=== PATIENT | male | born 1975 | race Caucasian/White ===

== ENCOUNTER → 2019-12-24 08:22 | Outpatient (BNVA) | payer MEDICARE, SELFPAY | PROVIDERS: Family Provider Family Medicine; PCP Family Medicine; Visit Provider Psychiatry & Neurology Neurology | DX: E11.65 Type 2 diabetes mellitus with hyperglycemia (principal) | CPT/HCPCS: 81000; 82044 ==

== ENCOUNTER → 2019-12-28 09:11 | Outpatient (BNVA) | payer MEDICARE, SELFPAY | PROVIDERS: Family Provider Family Medicine; PCP Family Medicine; Visit Provider Nurse Practitioner | DX: E11.65 Type 2 diabetes mellitus with hyperglycemia (principal); E78.2 Mixed hyperlipidemia; I10 Essential (primary) hypertension | CPT/HCPCS: 80053; 80061; 83036; 84443 ==

== ENCOUNTER → 2020-01-20 13:28 | Outpatient (BNVA) | payer MEDICARE, SELFPAY | PROVIDERS: Family Provider Family Medicine; PCP Family Medicine; Visit Provider Psychiatry & Neurology Psychiatry | DX: F20.9 Schizophrenia, unspecified (principal); F10.20 Alcohol dependence, uncomplicated; F17.200 Nicotine dependence, unspecified, uncomplicated | CPT/HCPCS: 99204 ==

== ENCOUNTER → 2020-02-03 08:26 | Outpatient (BNVA) | payer MEDICARE, SELFPAY | PROVIDERS: Family Provider Family Medicine; PCP Family Medicine; Visit Provider Psychiatry & Neurology Psychiatry | DX: F20.9 Schizophrenia, unspecified (principal); F10.20 Alcohol dependence, uncomplicated; F17.200 Nicotine dependence, unspecified, uncomplicated | CPT/HCPCS: 99213 ==

== ENCOUNTER → 2020-02-10 08:29 | Outpatient (BNVA) | payer MEDICARE, SELFPAY | PROVIDERS: Family Provider Family Medicine; PCP Family Medicine; Visit Provider Psychiatry & Neurology Psychiatry | DX: F20.9 Schizophrenia, unspecified (principal); F17.200 Nicotine dependence, unspecified, uncomplicated; F10.20 Alcohol dependence, uncomplicated | CPT/HCPCS: 99214 ==

== ENCOUNTER → 2020-03-01 13:34 | Outpatient (BNVA) | payer MEDICARE, MEDICAID, SELFPAY | PROVIDERS: Family Provider Family Medicine; PCP Nurse Practitioner; Visit Provider Nurse Practitioner | DX: Z11.59 Encounter for screening for other viral diseases (principal) | CPT/HCPCS: 86705; 86706; 86709; 86803; 87340 ==

== ENCOUNTER 2020-03-02 10:11 | Inpatient (IN) | payer MEDICARE, MEDICAID, SELFPAY ==
[2020-03-02] VITALS (8 sets, daily range): BP systolic 91–138; BP diastolic 62–79; PULSE 72–106; RESP 16–20; TEMP 36.6–37.3; O2SAT 96–97; BMI 33.5
--- NOTE | 2020-03-02 10:17 | ED_ITS ---
HPI - Psych General: Chief Complaint: Psychiatric Symptoms Stated Complaint: SUICIDAL IDEATION Time Seen by Provider: 03/02/20 10:12 History of Present Illness: HPI Narrative: 44-year-old male comes in complaining of suicidal ideation. He states he [place] to sit [place] the [place] tracks or walk into traffic. He has been admitted in the past for suicidal ideation. He denies having done anything specifically to harm himself as of yet. Review of Systems Const: Denies: fever(s), chills, body aches, change in appetite, fatigue or malaise ENMT: Denies: throat pain, ear or mastoid pain, nasal discharge or nasal congestion Card: Denies: chest pain, edema, dyspnea on exertion or orthopnea Resp: Denies: dyspnea, productive cough or non-productive cough GI: Denies: abdominal pain, nausea, vomiting, hematemesis, coffee ground emesis, diarrhea, constipation, bloating, hematochezia or melena : Denies: flank pain, dysuria, urinary frequency or urinary urgency PFSH ED PFSH: Medical History Acne rosacea Bipolar disorder Controlled diabetes mellitus with hyperglycemia Current smoker DM neuropathy, painful Essential (primary) hypertension History of alcohol abuse daily use of hard liquor History of coronary artery disease History of CVA (cerebrovascular accident) 2009 Right side weakness due to a bleed History of memory loss History of schizophrenia Mixed hyperlipidemia Psoriasis Seizure disorder Surgical History History of colonoscopy with polypectomy 2016 History of esophagogastroduodenoscopy (EGD) History of eye surgery History of heart artery stent Family History Other Dementia Diabetes Hypertension Lung disease Psychiatric illness Stroke Denies family history of Chronic kidney disease (CKD) Anesthesia complication Bleeding disorder Cancer Social History Smoking and tobacco status: current every day smoker cigarettes Packs smoked per day: 2.5 Years cigarettes smoked: 38 Second hand smoke exposure: Yes Smoking risk assessment/counseling performed?: Yes Alcohol intake: current Alcohol intake frequency: 0-2 Drinks per Day Alcohol type: hard liquor Desire information about alcohol rehabilitation?: No Counseling given: No Desire information about substance/drug rehabilitation?: No Counseling given: No Adopted: No Caregiver/support person: Yes Lives independently: No Household members: friend(s) and caregiver Housing: Manufactured/Mobile home Marital status: Number of children: 8 service: No Current occupational status: disabled Pets and animals: Yes History of recent travel: Yes Details: month an a half ago Out of state: Yes Current gender identity: Male Physical Exam Const: COMMON NORMALS: no acute distress GENERAL APPEARANCE: cooperative and comfortable HENMT: COMMON NORMALS: normocephalic, atraumatic and hearing grossly normal bilaterally HEAD & SCALP: normocephalic and atraumatic Eye: COMMON NORMALS: Equal, round and reactive pupils present, EOMs intact bilaterally, conjunctivae normal and no scleral icterus CONJUNCTIVA: Yes conjunctivae normal PUPIL: Yes Equal, round and reactive pupils present Neck/C-Spine: COMMON NORMALS: full ROM, no lymphadenopathy, supple and no JVD Lymph: LYMPHATIC: no lymphadenopathy noted and no lymphedema noted Resp: COMMON NORMALS: normal respiratory effort, No retractions, No use of accessory muscles and clear to auscultation bilaterally AUSCULTATION: clear to auscultation bilaterally Cardio: COMMON NORMALS: no JVD, regular rate, regular rhythm and No murmurs present (Cardio) RATE: regular rate RHYTHM: regular rhythm GI: COMMON NORMALS: Soft to palpation and No hepatosplenomegaly present AUSCULTATION: Yes normoactive bowel sounds PALPATION: Yes Soft to palpation, No Tenderness to palpation present (GI), No Guarding due to palpation present (GI) and Yes No hepatosplenomegaly present Extremity: COMMON NORMALS: normal to inspection, capillary refill normal, no clubbing, cyanosis or edema, no calf tenderness and no pedal edema MDM - Psych MDM Narrative: Medical decision making narrative: This is Dr. Torres will admit for suicidal ideation. Also let Dr. Torres know his blood sugars are elevated and will need monitoring Lab Data: Labs: Lab Results 03/02/20 03/02/20 03/02/20 Range/Units 10:30 10:30 10:32 WBC 10.5 H (4.0-10.0) 10^3/ uL RBC 5.17 (4.1-5.3) 10^6/u L Hgb 16.7 H (11.7-16.6) g/dL Hct 48.9 (42.0-52.0) % MCV 94.6 H (80-94) fL MCH 32.3 (28.0-34.0) pg MCHC 34.2 (30.0-36.0) g/dL RDW 12.5 (12.1-15.1) % Plt Count 220 (130-400) 10^3/c mm MPV 11.3 H (7.4-10.4) fL Neut % (Auto) 70.6 % Lymph % (Auto) 16.9 % [place] % (Auto) 5.3 % Eos % (Auto) 5.9 % Baso % (Auto) 0.9 % Neut # (Auto) 7.40 (1.8-7.7) 10^3/u L Lymph # (Auto) 1.8 (0.8-4.8) 10^3/u L [place] # (Auto) 0.6 (0.2-0.9) 10^3/u L Eos # (Auto) 0.6 (0.0-0.8) 10^3/u L Baso # (Auto) 0.1 (0.0-0.1) 10^3/u L Nucleated RBC % (a uto) 0 % Nucleated RBCs # 0.0 /100WBC Sodium 135 L (136-145) mmol/L Potassium 4.2 (3.5-5.1) mmol/L Chloride 104 (98-107) mmol/L Carbon Dioxide 19 L (22-29) mmol/L Anion Gap 16.2 (5-19) BUN 7 (6-20) mg/dL Creatinine 0.8 (0.7-1.2) mg/dL GFR Calculation 104.1 (90-130) mL/min Glucose 146 H (65-115) mg/dL Calculated Osmolal ity 281 L (285-295) mOsm/k g Calcium 10.1 (8.5-10.5) mg/dL Total Bilirubin 0.4 (0.15-1.2) mg/dL AST 46 H (0-40) U/L ALT 48 H (0-41) U/L Alkaline Phosphata se 67 (40-130) IU/L Total Protein 7.4 (6.6-8.7) g/dL Albumin 4.5 (3.5-5.2) g/dL Globulin 2.9 (1.3-4.6) g/dL Urine Color Yellow (Yellow) Urine Appearance Clear (CLEAR) Urine pH 7.0 (5-7) Ur Specific Gravit y 1.005 (1.005-1.030) Urine Protein Neg (Negative) Urine Glucose (UA) Norm (Normal) Urine Ketones Negative (Negative) Urine Blood Neg (Negative) Urine Nitrate Negative (Negative) Urine Bilirubin Neg (Negative) Urine Urobilinogen Norm (Negative) mg/dL Ur Leukocyte Niru ase Negative (Negative) Salicylates < 0.3 L (3-10) mg/dL Urine Opiates Scre en (Negative) ng/mL Acetaminophen < 5.0 L (10-30) ug/mL Ur Barbiturates Sc reen (Negative) ng/mL Ur Phencyclidine S crn (Negative) ng/mL Ur Amphetamines Sc reen (Negative) ng/mL U Benzodiazepines Scrn (Negative) ng/mL Urine Cocaine Scre en (Negative) ng/mL U Marijuana (THC) Screen (Negative) ng/mL Ethyl Alcohol < 10 (0-10) mg/dL SARS-CoV-2 Ag (Rap id) (Negative) 03/02/20 03/02/20 Range/Units 10:32 10:37 WBC (4.0-10.0) 10^3/ uL RBC (4.1-5.3) 10^6/u L Hgb (11.7-16.6) g/dL Hct (42.0-52.0) % MCV (80-94) fL MCH (28.0-34.0) pg MCHC (30.0-36.0) g/dL RDW (12.1-15.1) % Plt Count (130-400) 10^3/c mm MPV (7.4-10.4) fL Neut % (Auto) % Lymph % (Auto) % [place] % (Auto) % Eos % (Auto) % Baso % (Auto) % Neut # (Auto) (1.8-7.7) 10^3/u L Lymph # (Auto) (0.8-4.8) 10^3/u L [place] # (Auto) (0.2-0.9) 10^3/u L Eos # (Auto) (0.0-0.8) 10^3/u L Baso # (Auto) (0.0-0.1) 10^3/u L Nucleated RBC % (a uto) % Nucleated RBCs # /100WBC Sodium (136-145) mmol/L Potassium (3.5-5.1) mmol/L Chloride (98-107) mmol/L Carbon Dioxide (22-29) mmol/L Anion Gap (5-19) BUN (6-20) mg/dL Creatinine (0.7-1.2) mg/dL GFR Calculation (90-130) mL/min Glucose (65-115) mg/dL Calculated Osmolal ity (285-295) mOsm/k g Calcium (8.5-10.5) mg/dL Total Bilirubin (0.15-1.2) mg/dL AST (0-40) U/L ALT (0-41) U/L Alkaline Phosphata se (40-130) IU/L Total Protein (6.6-8.7) g/dL Albumin (3.5-5.2) g/dL Globulin (1.3-4.6) g/dL Urine Color (Yellow) Urine Appearance (CLEAR) Urine pH (5-7) Ur Specific Gravit y (1.005-1.030) Urine Protein (Negative) Urine Glucose (UA) (Normal) Urine Ketones (Negative) Urine Blood (Negative) Urine Nitrate (Negative) Urine Bilirubin (Negative) Urine Urobilinogen (Negative) mg/dL Ur Leukocyte Niru ase (Negative) Salicylates (3-10) mg/dL Urine Opiates Scre en Negative (Negative) ng/mL Acetaminophen (10-30) ug/mL Ur Barbiturates Sc reen Negative (Negative) ng/mL Ur Phencyclidine S crn Negative (Negative) ng/mL Ur Amphetamines Sc reen Negative (Negative) ng/mL U Benzodiazepines Scrn Negative (Negative) ng/mL Urine Cocaine Scre en Negative (Negative) ng/mL U Marijuana (THC) Screen Negative (Negative) ng/mL Ethyl Alcohol (0-10) mg/dL SARS-CoV-2 Ag (Rap id) Negative (Negative) Discharge Plan Discharge Patient Disposition: Home Clinical Impression: Suicidal ideation, Controlled diabetes mellitus with hyperglycemia Condition: Stable Discharge Date/Time: 03/02/20 13:18 Coding Level of Care Code ED [employer] for [employer]
--- NOTE | 2020-03-02 10:27 | XR_ITS ---
WS: [id number] CHEST XRAY TECHNIQUE: Portable chest. CLINICAL INFORMATION: dyspnea/cough COMPARISON: FINDINGS: Heart: Stable cardiomegaly. Lungs: Moderate chronic emphysematous changes. No acute parenchymal infiltrates. No focal pneumonia. No pleural fluid. Bones: Normal visualized bony structures. XR/XR chest 1V portable [id number] IMPRESSION: No acute chest findings
[2020-03-02 10:37] LABS: Basophils # 0.1 10^3/uL (0.0-0.1); Basophils % 0.9 %; Eosinophils # 0.6 10^3/uL (0.0-0.8); Eosinophils % 5.9 %; Hematocrit 48.9 % (42.0-52.0); Hemoglobin 16.7 g/dL (11.7-16.6); Lymphocytes # 1.8 10^3/uL (0.8-4.8); Lymphocytes % 16.9 %; Mean Corpuscular HGB Conc 34.2 g/dL (30.0-36.0); Mean Corpuscular Hemoglobin 32.3 pg (28.0-34.0); Mean Corpuscular Volume 94.6 fL (80-94); Mean Platelet Volume 11.3 fL (7.4-10.4); Monocytes # 0.6 10^3/uL (0.2-0.9); Monocytes % 5.3 %; Neutrophils % 70.6 %; Nucleated Red Blood Cells % 0 %; Platelet Count 220 10^3/cmm (130-400); Red Blood Count 5.17 10^6/uL (4.1-5.3); Red Cell Distribution Width 12.5 % (12.1-15.1); White Blood Count 10.5 10^3/uL (4.0-10.0)
[2020-03-02 10:46] LABS: Add Urine Microscopic? NO
[2020-03-02 10:50] LABS: Bilirubin Urine Neg (Negative); Blood Urine Neg (Negative); Glucose Urine UA Norm (Normal); Ketones Urine Negative (Negative); Leukocyte Esterase Urine Negative (Negative); Nitrate Urine Negative (Negative); Protein Urine Neg (Negative); Specific Gravity, Urine 1.005 (1.005-1.030); Urine Appearance Clear (CLEAR); Urine Color Yellow (Yellow); Urobilinogen Urine Norm (Negative)
[2020-03-02 10:57] LABS: Alanine Aminotransferase 48 U/L (0-41); Albumin Level 4.5 g/dL (3.5-5.2); Alkaline Phosphatase 67 IU/L (40-130); Anion Gap 16.2 (5-19); Aspartate Amino Transferase 46 U/L (0-40); Blood Urea Nitrogen 7 mg/dL (6-20); Calcium 10.1 mg/dL (8.5-10.5); Carbon Dioxide 19 mmol/L (22-29); Chloride 104 mmol/L (98-107); Globulin 2.9 g/dL (1.3-4.6); Glomerular Filtration Rate 104.1 mL/min (90-130); Glucose 146 mg/dL (65-115); Osmolality Calculated 281 mOsm/kg (285-295); Potassium 4.2 mmol/L (3.5-5.1); Sodium 135 mmol/L (136-145); Total Bilirubin 0.4 mg/dL (0.15-1.2); Total Protein 7.4 g/dL (6.6-8.7)
[2020-03-02 10:58] LABS: Amphetamines Screen Urine Negative (Negative); Barbiturates Screen Urine Negative (Negative); Benzodiazepines Screen Urine Negative (Negative); Cocaine Screen Urine Negative (Negative); Opiate Screen Urine Negative (Negative); PCP Screen Urine Negative (Negative); THC Screen Urine Negative (Negative)
[2020-03-02 10:58] LABS: Acetaminophen < 5.0 ug/mL (10-30); Alcohol Level < 10 mg/dL (0-10); Salicylate < 0.3 mg/dL (3-10)
[2020-03-02 11:06] LABS: SARS Covid-2 Antigen Negative (Negative)
[2020-03-02] MEDS: LORazepam 1 mg Tablet PO (11:17)
--- NOTE | 2020-03-02 11:25 | PC.NURSE ---
Sitter outside room.
[2020-03-02] MEDS: trazodone 50 mg Tablet PO (21:42)
[2020-03-02] MEDS: hyDROXYzine 25 mg Capsule 50 MG PO (21:42)
[2020-03-03 06:00] VITALS: BP 97/57; PULSE 73; RESP 16; TEMP 36.8; O2SAT 96
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
[2020-03-03] MEDS: lisinopril 20 mg Tablet 40 MG PO (09:45)
[2020-03-03] MEDS: carvedilol 6.25 mg Tablet PO (09:45)
[2020-03-03] MEDS: metformin XR 500 MG Tablet PO ×2 (09:45→16:59)
[2020-03-03] MEDS: OLANZapine 10 mg TABLET PO ×2 (09:45→16:59)
[2020-03-03] MEDS: levETIRAcetam 500 mg Tablet 1000 MG PO ×2 (09:45→16:59)
[2020-03-03] MEDS: paliperidone 3 MG, paliperidone 6 MG 9 MG PO (09:45)
[2020-03-03] MEDS: topiramate 25 mg Tablet 50 MG PO ×2 (09:45→16:59)
[2020-03-03] MEDS: lithium carbonate 300 mg Capsule PO ×2 (13:46→16:59)
[2020-03-03 14:00] VITALS: BP 121/71; PULSE 80; RESP 18; TEMP 37.1; O2SAT 95
[2020-03-03 21:12] VITALS: BP 109/65; PULSE 60; RESP 17; TEMP 36.6; O2SAT 95
[2020-03-04 06:00] VITALS: BP 124/84; PULSE 87; RESP 16; TEMP 36.2; O2SAT 97
[2020-03-04] MEDS: levETIRAcetam 500 mg Tablet 1000 MG PO ×2 (08:25→17:09)
[2020-03-04] MEDS: lithium carbonate 300 mg Capsule PO ×3 (08:26→20:29)
[2020-03-04] MEDS: carvedilol 6.25 mg Tablet PO (08:26)
[2020-03-04] MEDS: OLANZapine 10 mg TABLET PO ×2 (08:26→17:09)
[2020-03-04] MEDS: topiramate 25 mg Tablet 50 MG PO ×2 (08:26→17:09)
[2020-03-04] MEDS: metformin XR 500 MG Tablet PO ×2 (08:26→17:08)
[2020-03-04] MEDS: lisinopril 20 mg Tablet 40 MG PO (08:26)
[2020-03-04] MEDS: paliperidone 3 MG, paliperidone 6 MG 9 MG PO (08:26)
[2020-03-04] MEDS: nicotine 21 mg Patch 1 PATCH TRANSDERMA (08:29)
--- NOTE | 2020-03-04 08:44 | PC.NURSE ---
refused scheduled Triamcinlone & Metrocream
--- NOTE | 2020-03-04 09:04 | PC.RESP ---
Smoking Cessation information sent to patient.
--- NOTE | 2020-03-04 10:53 | PC.SOCIAL ---
Important Medicare Message Reviewed page 1 & 2 of Important Medicare Message with patient. Verbalized understanding and signed page 2. Original to patient and copy in chart.
--- NOTE | 2020-03-04 13:11 | PM.NPN ---
Subjective NPU Subjective: Interval history: Reinaldo presents today reporting that he still is feeling quite irritable. We discussed the side effects or issues he is having with the lithium and he denied any problems. Noting that he was taking anything at this point. So we discussed the risks, benefits and alternatives of increasing the lithium to 300 mg by mouth 3 times a day and he understood and agreed to proceed as is documented in his note. He reports that he is eating okay still having some sleeping difficulties and feeling anger a lot. Mental Status Exam MSE Comments: This is an obese white male with adequate dress, grooming and eye contact. No abnormal movements. Except for psychomotor retardation. Cooperative with exam in mild distress. Speech was decreased rate and volume. Mood described as depressed, affect congruent and irritable. Thought process organized. Thought content: Patient endorsed suicidal and homicidal ideations, he endorsed paranoid delusions but none were noted. He endorses auditory hallucinations but denied visual hallucinations. Attention and concentration appear intact in memory appears reliable but none were formally tested. He is alert and oriented x3. Insight and judgment appear fair. Vitals/I&O/Wt Last Vital Signs Temp 97.2 F L 03/04/20 06:00 Pulse 87 03/04/20 06:00 Resp 16 03/04/20 06:00 BP 124/84 03/04/20 06:00 Pulse Ox 97 03/04/20 06:00 Data NPU : 03/02/20 10:30 03/02/20 10:30 A&P Additional A&P Information (1) Suicidal ideation: (2) Nicotine dependence, unspecified, uncomplicated: (3) Alcohol use disorder, severe, dependence: (4) Schizophrenia: (5) Seizure disorder: (6) Controlled diabetes mellitus with hyperglycemia: (7) Essential (primary) hypertension: (8) Cerebrovascular accident (CVA): This is a 44-year-old white male with a long history of psychosis and suicidality who presents poorly 3 weeks back onto his antipsychotic but still having significant mood swings and anxiety. 1. Continue current medication. Except: Initiate lithium 300 mg p.o. 3 times a day. 2. Continue every 15 minute checks for safety. 3. Encourage individual group and milieu therapy. 4. Encourage sober living treatment at the highest level of care to which he is willing to commit. Involuntary Hold Information 96 Hour Hold: 96 Hour Involuntary Admission: No Attestations NPU Medical Necessity Statement*: Inpatient hospitalization is medically necessary and the clinically appropriate intervention at this time. We will monitor medications and add and make changes as indicated. Likely length of stay 3-5 days. Coding Level of Care Code Acute Senior Sales Consultant for Carlos Armstrong
[2020-03-04 14:00] VITALS: BP 121/80; PULSE 80; RESP 18; TEMP 37.1; O2SAT 95
[2020-03-04] MEDS: hyDROXYzine 25 mg Capsule 50 MG PO (20:23)
[2020-03-04] MEDS: trazodone 50 mg Tablet PO (20:26)
[2020-03-04] MEDS: atorvastatin 40 mg Tablet 20 MG PO (20:30)
[2020-03-04] MEDS: triamcinolone 0.1% cream 15 gm 1 APPLIC TOPICAL (20:31)
[2020-03-04 22:00] VITALS: BP 100/65; PULSE 78; RESP 16; TEMP 36.5; O2SAT 96
[2020-03-05 06:00] VITALS: BP 118/84; PULSE 71; RESP 18; TEMP 36.8; O2SAT 98
[2020-03-05] MEDS: OLANZapine 10 mg TABLET PO ×2 (08:42→17:00)
[2020-03-05] MEDS: lisinopril 20 mg Tablet 40 MG PO (08:43)
[2020-03-05] MEDS: topiramate 25 mg Tablet 50 MG PO ×2 (08:43→17:01)
[2020-03-05] MEDS: paliperidone 3 MG, paliperidone 6 MG 9 MG PO (08:43)
[2020-03-05] MEDS: lithium carbonate 300 mg Capsule PO ×3 (08:43→20:53)
[2020-03-05] MEDS: metformin XR 500 MG Tablet PO ×2 (08:43→17:00)
[2020-03-05] MEDS: carvedilol 6.25 mg Tablet PO (08:44)
[2020-03-05] MEDS: levETIRAcetam 500 mg Tablet 1000 MG PO ×2 (08:44→17:00)
[2020-03-05] MEDS: paliperidone palmitate 234 mg Syringe IM (13:19)
[2020-03-05 14:00] VITALS: BP 112/79; PULSE 87; RESP 18; TEMP 36.8
--- NOTE | 2020-03-05 14:10 | P.PN_ITS ---
Subjective NPU Subjective: Interval history: Bilateral presents today reporting that he is feeling a little anxious but we discussed the fact that he was getting his injection today, and he reported that that very well could be it later on we spoke he said that he did feel little better after injection. He reports that he is doing well with the lithium and he denied any specific side effects or concerns. We discussed the need for a lithium level sometime in the next week. We discussed the risks benefits and alternatives of discharge in the next 48 hours and he understood and agreed to proceed as documented in this note. He reports eating and sleeping better. Medications: Reviewed: Yes Mental Status Exam MSE Comments: This is an obese white male with adequate dress, grooming and eye contact. No abnormal movements. Except for mild psychomotor retardation. Cooperative with exam in no acute distress. Speech was decreased rate and volume. Mood described as depression getting better but feeling a little anxious, affect congruent. Thought process organized. Thought content: Patient denied suicidal and homicidal ideations, he reported his paranoid delusions were diminishing but none were noted. He endorses improvement in his auditory hallucinations but denied visual hallucinations. Attention and concentration appear intact in memory appears reliable but none were formally tested. He is alert and oriented x3. Insight and judgment appear fair, and improving. Vitals/I&O/Wt Last Vital Signs Temp 96.9 F L 03/05/20 21:42 Pulse 89 03/05/20 21:42 Resp 17 03/05/20 21:42 BP 128/84 03/05/20 21:42 Pulse Ox 97 03/05/20 21:42 Weight last 48 hrs Weight 99.79 kg Data NPU : 03/02/20 10:30 03/02/20 10:30 A&P Additional A&P Information (1) Suicidal ideation: (2) Nicotine dependence, unspecified, uncomplicated: (3) Alcohol use disorder, severe, dependence: (4) Schizophrenia: (5) Seizure disorder: (6) Controlled diabetes mellitus with hyperglycemia: (7) Essential (primary) hypertension: (8) Cerebrovascular accident (CVA): This is a 44-year-old white male with a long history of psychosis and suicidality who presents poorly 3 weeks back onto his antipsychotic but still having significant mood swings and anxiety. 1. Continue current medication. 2. Continue every 15 minute checks for safety. 3. Encourage individual group and milieu therapy. 4. Encourage sober living treatment at the highest level of care to which he is willing to commit. Involuntary Hold Information 96 Hour Hold: 96 Hour Involuntary Admission: No Attestations NPU Medical Necessity Statement*: Inpatient hospitalization is medically necessary and the clinically appropriate intervention at this time. We will monitor medications and add and make changes as indicated. Likely length of stay 1-3 days. Coding Level of Care Code Acute Membership Sales Representative for Carlos Armstrong
[2020-03-05] MEDS: atorvastatin 40 mg Tablet 20 MG PO (20:51)
[2020-03-05] MEDS: hyDROXYzine 25 mg Capsule 50 MG PO (20:51)
[2020-03-05 21:42] VITALS: BP 128/84; PULSE 89; RESP 17; TEMP 36.1; O2SAT 97
[2020-03-06 06:00] VITALS: BP 111/76; PULSE 81; RESP 17; TEMP 36.4; O2SAT 97
[2020-03-06] MEDS: nicotine 21 mg Patch 1 PATCH TRANSDERMA (08:06)
[2020-03-06] MEDS: OLANZapine 10 mg TABLET PO (08:07)
[2020-03-06] MEDS: lisinopril 20 mg Tablet 40 MG PO (08:07)
[2020-03-06] MEDS: levETIRAcetam 500 mg Tablet 1000 MG PO (08:07)
[2020-03-06] MEDS: paliperidone 3 MG, paliperidone 6 MG 9 MG PO (08:08)
[2020-03-06] MEDS: metformin XR 500 MG Tablet PO (08:08)
[2020-03-06] MEDS: topiramate 25 mg Tablet 50 MG PO (08:08)
[2020-03-06] MEDS: lithium carbonate 300 mg Capsule PO (08:08)
[2020-03-06] MEDS: carvedilol 6.25 mg Tablet PO (08:08)
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
[2020-03-06 09:38] VITALS: BP 111/76; PULSE 81; RESP 17; TEMP 36.4; O2SAT 97
== END 2020-03-06 11:10 | disposition home or self-care (01) | DRG 885 ==
LOC: ER 11:46 → NP 11:47
PROVIDERS: Family Medicine; Admitting Provider Psychiatry & Neurology Psychiatry; PCP Nurse Practitioner; Visit Provider Psychiatry & Neurology Psychiatry
DX: F20.9 Schizophrenia, unspecified (principal); R45.851 Suicidal ideations; F17.210 Nicotine dependence, cigarettes, uncomplicated; I10 Essential (primary) hypertension; E11.65 Type 2 diabetes mellitus with hyperglycemia; G40.909 Epilepsy, unspecified, not intractable, without status epilepticus; F10.229 Alcohol dependence with intoxication, unspecified; E78.2 Mixed hyperlipidemia; Z86.73 Personal history of transient ischemic attack (TIA), and cerebral infarction without residual deficits; E11.40 Type 2 diabetes mellitus with diabetic neuropathy, unspecified; I25.10 Atherosclerotic heart disease of native coronary artery without angina pectoris
CPT/HCPCS: 12345; 36415; 71045; 80053; 80306; 80307; 81003; 85025; 86705; 86706; 86709; 86803; 87340; 87426; 96372; 99284

== ENCOUNTER → 2020-03-10 07:46 | Outpatient (BNVA) | payer MEDICARE, SELFPAY | PROVIDERS: Family Provider Family Medicine; PCP Family Medicine; Visit Provider Psychiatry & Neurology Psychiatry | DX: F20.9 Schizophrenia, unspecified (principal); F10.20 Alcohol dependence, uncomplicated; F17.200 Nicotine dependence, unspecified, uncomplicated | CPT/HCPCS: 99214 ==

== ENCOUNTER → 2020-03-22 07:42 | Outpatient (BNVA) | payer MEDICARE, SELFPAY | PROVIDERS: Family Provider Family Medicine; PCP Family Medicine; Visit Provider Psychiatry & Neurology Psychiatry | DX: F17.200 Nicotine dependence, unspecified, uncomplicated (principal); F10.20 Alcohol dependence, uncomplicated; F20.9 Schizophrenia, unspecified | CPT/HCPCS: 99213 ==

== ENCOUNTER → 2020-03-30 08:12 | Outpatient (BNVA) | payer MEDICARE, SELFPAY | PROVIDERS: PCP Nurse Practitioner; Visit Provider Nurse Practitioner Family | DX: F20.9 Schizophrenia, unspecified (principal); F10.20 Alcohol dependence, uncomplicated; G40.909 Epilepsy, unspecified, not intractable, without status epilepticus; Z71.89 Other specified counseling; E11.65 Type 2 diabetes mellitus with hyperglycemia | CPT/HCPCS: 80053; 80178; 84443; 85025 ==

== ENCOUNTER 2020-04-04 11:56 | Inpatient (IN) | payer MEDICARE, MEDICAID, SELFPAY ==
[2020-04-04] VITALS (7 sets, daily range): BP systolic 115–137; BP diastolic 77–100; PULSE 71–139; RESP 17–22; TEMP 36.8–37.5; O2SAT 92–95; BMI 33.5
--- NOTE | 2020-04-04 12:09 | ED_ITS ---
HPI - Psych General: Chief Complaint: Psychiatric Symptoms Stated Complaint: SI Time Seen by Provider: 04/04/20 11:58 Source: patient and EMS Mode of arrival: EMS Limitations: no limitations History of Present Illness: HPI Narrative: Reinaldo is a 44-year-old male history of schizophrenia who please recall as he is having suicidal ideations. He told the police that he want to kill himself and had a plan of jumping out into traffic. He also told EMS he wanted to jump out of the back of the ambulance. Patient is quite anxious here and is pacing in the room. He denies any active suicidality at this time. MD complaint: suicidal ideation Associated symptoms: Reports depression and suicidal ideation Review of Systems Const: Denies: fever(s), chills, body aches or change in appetite Eyes: Denies: blurry vision or eye discomfort ENMT: Denies: throat pain or dental pain Card: Denies: chest pain Resp: Denies: dyspnea GI: Denies: abdominal pain, nausea, vomiting or diarrhea : Denies: dysuria Musc: Denies: neck pain or back pain Skin/Breast: Denies: rash Neuro: Denies: headache(s) Psych: Reports: anxiety, depression and suicidal ideation Len/Lymph: Denies: easy bruising All/Imm: Denies: urticaria PFSH ED PFSH: Medical History Acne rosacea Bipolar disorder Controlled diabetes mellitus with hyperglycemia Current smoker DM neuropathy, painful Essential (primary) hypertension History of alcohol abuse daily use of hard liquor History of coronary artery disease History of CVA (cerebrovascular accident) 2010 Right side weakness due to a bleed History of memory loss History of schizophrenia Mixed hyperlipidemia Psoriasis Seizure disorder Surgical History History of colonoscopy with polypectomy 2016 History of esophagogastroduodenoscopy (EGD) History of eye surgery History of heart artery stent Family History Other Dementia Diabetes Hypertension Lung disease Psychiatric illness Stroke Denies family history of Chronic kidney disease (CKD) Anesthesia complication Bleeding disorder Cancer Social History Smoking and tobacco status: current every day smoker cigarettes Packs smoked per day: 2.5 Years cigarettes smoked: 38 Second hand smoke exposure: Yes Smoking risk assessment/counseling performed?: Yes Alcohol intake: current Alcohol intake frequency: 0-2 Drinks per Day Alcohol type: hard liquor Desire information about alcohol rehabilitation?: No Counseling given: No Desire information about substance/drug rehabilitation?: No Counseling given: No Adopted: No Caregiver/support person: Yes Lives independently: No Household members: friend(s) and caregiver Housing: Manufactured/Mobile home Marital status: Number of children: 8 service: No Current occupational status: disabled Pets and animals: Yes History of recent travel: Yes Details: month an a half ago Out of state: Yes Current gender identity: Male Physical Exam Const: COMMON NORMALS: no acute distress, patient oriented x3 and healthy appearing HENMT: COMMON NORMALS: normocephalic and atraumatic HEAD & SCALP: normocephalic and atraumatic Eye: COMMON NORMALS: Equal, round and reactive pupils present and EOMs intact bilaterally PUPIL: Yes Equal, round and reactive pupils present Neck/C-Spine: COMMON NORMALS: full ROM and supple Chest: COMMONS NORMALS: normal inspection of the chest and normal palpation of entire chest wall Resp: COMMON NORMALS: normal respiratory effort, No retractions, No use of accessory muscles and clear to auscultation bilaterally AUSCULTATION: clear to auscultation bilaterally Cardio: COMMON NORMALS: regular rate, regular rhythm and No murmurs present (Cardio) RATE: regular rate RHYTHM: regular rhythm GI: COMMON NORMALS: Normal to inspection, nondistended, normoactive bowel sounds present, Soft to palpation, non-tender and no masses PALPATION: Yes Soft to palpation Extremity: COMMON NORMALS: normal to inspection and full ROM Neuro: COMMON NORMALS: patient oriented x3, moves all extremities and no focal motor deficits Psych: COMMON NORMALS: mental status grossly normal and cooperative MOOD & AFFECT: Yes depressed mood and Yes anxious THOUGHT CONTENT: Yes Suicidality present Skin: COMMON NORMALS: no rashes or lesions noted and no wounds GENERAL SKIN EXAM: no rashes or lesions noted MDM - Psych MDM Narrative: Medical decision making narrative: Patient presents for suicidal ideations. Patient's been medically cleared and placed under 96-hour hold. Patient admitted to psychiatric unit. Lab Data: Labs: Lab Results 04/04/20 04/04/20 04/04/20 Range/Units 12:20 13:30 13:30 WBC 7.5 (4.0-10.0) 10^3/ uL RBC 4.28 (4.1-5.3) 10^6/u L Hgb 14.1 (11.7-16.6) g/dL Hct 41.5 L (42.0-52.0) % MCV 97.0 H (80-94) fL MCH 32.9 (28.0-34.0) pg MCHC 34.0 (30.0-36.0) g/dL RDW 14.2 (12.1-15.1) % Plt Count 189 (130-400) 10^3/c mm MPV 10.4 (7.4-10.4) fL Neut % (Auto) 62.0 % Lymph % (Auto) 27.9 % Noble % (Auto) 5.5 % Eos % (Auto) 3.5 % Baso % (Auto) 0.8 % Neut # (Auto) 4.64 (1.8-7.7) 10^3/u L Lymph # (Auto) 2.1 (0.8-4.8) 10^3/u L Noble # (Auto) 0.4 (0.2-0.9) 10^3/u L Eos # (Auto) 0.3 (0.0-0.8) 10^3/u L Baso # (Auto) 0.1 (0.0-0.1) 10^3/u L Nucleated RBC % (a uto) 0 % Nucleated RBCs # 0.0 /100WBC Sodium 139 (136-145) mmol/L Potassium 3.7 (3.5-5.1) mmol/L Chloride 102 (98-107) mmol/L Carbon Dioxide 23 (22-29) mmol/L Anion Gap 17.7 (5-19) BUN 5 L (6-20) mg/dL Creatinine 0.7 (0.7-1.2) mg/dL GFR Calculation 121.4 (90-130) mL/min Glucose 117 H (65-115) mg/dL Calculated Osmolal ity 286 (285-295) mOsm/k g Calcium 9.2 (8.5-10.5) mg/dL Total Bilirubin 0.2 (0.15-1.2) mg/dL AST 31 (0-40) U/L ALT 45 H (0-41) U/L Alkaline Phosphata se 58 (40-130) IU/L Total Protein 6.4 L (6.6-8.7) g/dL Albumin 4.3 (3.5-5.2) g/dL Globulin 2.1 (1.3-4.6) g/dL Salicylates < 0.3 L (3-10) mg/dL Urine Opiates Scre en Negative (Negative) ng/mL Acetaminophen < 5.0 L (10-30) ug/mL Ur Barbiturates Sc reen Negative (Negative) ng/mL Ur Phencyclidine S crn Negative (Negative) ng/mL Ur Amphetamines Sc reen Negative (Negative) ng/mL U Benzodiazepines Scrn Negative (Negative) ng/mL Urine Cocaine Scre en Negative (Negative) ng/mL U Marijuana (THC) Screen Negative (Negative) ng/mL Ethyl Alcohol 98 H (0-10) mg/dL Discharge Plan Discharge Patient Disposition: Admitted As Inpatient Clinical Impression: Suicidal ideation Condition: Stable Referrals: Joel Rivas, CLERK TELEGRAPH SERVICE-C [Primary Care Provider] - Coding Level of Care Code ED Vocational Teacher for Carlos Fwd Exam Comprehensive
--- NOTE | 2020-04-04 12:16 | PC.NURSE ---
Pt belongings taken and placed in filing cabinet, sitter at bedside. Pt provided with coffee and sandwich.
[2020-04-04] MEDS: levETIRAcetam 500 mg Tablet 1000 MG PO (12:46)
[2020-04-04] MEDS: LORazepam 2 mg Tablet PO ×2 (12:46→17:16)
[2020-04-04 12:53] LABS: Amphetamines Screen Urine Negative (Negative); Barbiturates Screen Urine Negative (Negative); Benzodiazepines Screen Urine Negative (Negative); Cocaine Screen Urine Negative (Negative); Opiate Screen Urine Negative (Negative); PCP Screen Urine Negative (Negative); THC Screen Urine Negative (Negative)
[2020-04-04 13:45] LABS: Basophils # 0.1 10^3/uL (0.0-0.1); Basophils % 0.8 %; Eosinophils # 0.3 10^3/uL (0.0-0.8); Eosinophils % 3.5 %; Hematocrit 41.5 % (42.0-52.0); Hemoglobin 14.1 g/dL (11.7-16.6); Lymphocytes # 2.1 10^3/uL (0.8-4.8); Lymphocytes % 27.9 %; Mean Corpuscular Hemoglobin 32.9 pg (28.0-34.0); Mean Platelet Volume 10.4 fL (7.4-10.4); Monocytes # 0.4 10^3/uL (0.2-0.9); Monocytes % 5.5 %; Neutrophils # 4.64 10^3/uL (1.8-7.7); Nucleated Red Blood Cells % 0 %; Platelet Count 189 10^3/cmm (130-400); Red Blood Count 4.28 10^6/uL (4.1-5.3); Red Cell Distribution Width 14.2 % (12.1-15.1); White Blood Count 7.5 10^3/uL (4.0-10.0)
[2020-04-04 14:04] LABS: Alanine Aminotransferase 45 U/L (0-41); Albumin Level 4.3 g/dL (3.5-5.2); Alcohol Level 98 mg/dL (0-10); Alkaline Phosphatase 58 IU/L (40-130); Anion Gap 17.7 (5-19); Aspartate Amino Transferase 31 U/L (0-40); Blood Urea Nitrogen 5 mg/dL (6-20); Calcium 9.2 mg/dL (8.5-10.5); Carbon Dioxide 23 mmol/L (22-29); Chloride 102 mmol/L (98-107); Creatinine Clr Calc Pharmacy 151.3281; Globulin 2.1 g/dL (1.3-4.6); Glomerular Filtration Rate 121.4 mL/min (90-130); Glucose 117 mg/dL (65-115); Osmolality Calculated 286 mOsm/kg (285-295); Potassium 3.7 mmol/L (3.5-5.1); Sodium 139 mmol/L (136-145); Total Bilirubin 0.2 mg/dL (0.15-1.2); Total Protein 6.4 g/dL (6.6-8.7)
[2020-04-04 14:09] LABS: Acetaminophen < 5.0 ug/mL (10-30); Salicylate < 0.3 mg/dL (3-10)
[2020-04-04] MEDS: LORazepam 2 mg/mL INJ 1 mL IM (14:34)
--- NOTE | 2020-04-04 15:53 | PC.NURSE ---
Called [facility] again regarding room. Per NATHALY Fountain, room still is not clean, housekeeping being called again.
--- NOTE | 2020-04-04 16:12 | PC.NURSE ---
sitter in room with patient no needs voiced
[2020-04-04] MEDS: trazodone 50 mg Tablet PO (20:54)
[2020-04-04] MEDS: hyDROXYzine 25 mg Capsule 50 MG PO (20:54)
[2020-04-05 06:00] VITALS: BP 119/80; PULSE 87; RESP 15; TEMP 36.4; O2SAT 98
[2020-04-05] MEDS: multivitamin therapeutic Tablet 1 TAB PO (07:58)
[2020-04-05] MEDS: thiamine 100 mg Tablet PO (07:58)
[2020-04-05] MEDS: folic acid 1 mg Tablet PO (07:58)
[2020-04-05 14:00] VITALS: BP 138/95; PULSE 94; RESP 20; TEMP 36.4; O2SAT 95
[2020-04-05] MEDS: paliperidone 3 MG, paliperidone 6 MG 9 MG PO (14:12)
[2020-04-05] MEDS: LORazepam 1 mg Tablet PO ×2 (14:12→20:35)
[2020-04-05] MEDS: citalopram 20 mg Tablet PO (14:12)
--- NOTE | 2020-04-05 14:35 | PM.NHP ---
Providers/Chief Complaint Admitting Physician: Chidi Arriaga MD Primary Care Provider: Joel Rivas, NAIMA-C Chief Complaint: SI HPI NPU History of Present Illness Reinaldo Flores is a 44-year-old male with an extensive history of admissions and outpatient treatment at the [facility]. Historically he has struggled with depression and auditory hallucinations. He has a diagnosis of schizophrenia based primarily on the presence of auditory hallucinations alone. He says that Invega is the only medication that has been helpful with the hallucinations. He was seen by his outpatient psychiatrist 2 weeks ago. It was an unremarkable visit except for the fact that the patient is drinking a half a gallon of hard liquor per day. Unfortunately, that is a pattern of behavior to such a degree that it is not given as cause for alarm when reported. He continues to labor under significant symptoms of depression with multiple extenuating circumstances. He continues to have complicated morning over the loss of his marriage 11 years ago and the removal of contact from his children. He has no regular contact with them. He has lost his employment. His alcohol use likely also feels depressive symptoms. These include anhedonia, feelings of hopelessness and worthlessness, low self-esteem, irritability, poor concentration, poor energy and insomnia. He states that he received his scheduled injection of Invega 234 mg. Then he immediately became despondent to the point of imminently suicidal. He has been this way before. He does not feel that it was the injection that caused the suicidality but rather his drinking. He expects that this will be resolved once he is through the period of withdrawal for his alcohol. We discussed his alcohol intake. He has been through rehab 1 time last year. This was somewhere in [place]. He immediately began drinking after the rehab and says that it provided no significant benefit. However this was his only experience at rehab. He has a history of a withdrawal symptoms but no DTs. He has no history of seizures. Laboratory Tests 04/04/20 04/04/20 12:20 13:30 Urine Opiates Screen Negative Ur Barbiturates Screen Negative Ur Phencyclidine Scrn Negative Ur Amphetamines Screen Negative U Benzodiazepines Scrn Negative Urine Cocaine Screen Negative U Marijuana (THC) Screen Negative Ethyl Alcohol 98 H ER Physician note: HPI Narrative: Reinaldo is a 44-year-old male history of schizophrenia who please recall as he is having suicidal ideations. He told the police that he want to kill himself and had a plan of jumping out into traffic. He also told EMS he wanted to jump out of the back of the ambulance. Patient is quite anxious here and is pacing in the room. He denies any active suicidality at this time. Past psychiatric history: This is the 12th psychiatric hospitalization at [facility] over the past 7 years. 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 He subsequently had a stroke followed by auditory hallucinations and has been hospitalized here in a psychotic episode just a week ago. The patient comes in, having been discovered by the police he was at that point wanted to lay on the railroad tracks and get himself killed. He also has absences, which often and with him in surprising situations that could compromise his [place]. The patient has a history of alcohol consumption with, he claims, 3-4 beers in a week since he was discharged. He denies illicit drugs. He clearly needs hospitalization at this time in light of the fact that he is actively psychotic and harboring potentially dangerous ideation directed at himself and others. He was discharged 13 days later on : Diazepam (Valium) 10 MG PO TID PRN MARKED ANXIETy Doxepin (Sinequan) 25 MG PO HS #30 Paliperidone (Invega) 9 MG PO DAILY Perphenazine (Trilafon Tab) 8 MG PO BID Days Levetiracetam Er (Keppra Er) 750 MG PO BID MG Lisinopril (Zestril) 40 MG PO DAILY #30 Paliperidone Palmitate (Invega Sustenna) 156 MG IM give on 08/15/15 Days 1 Ref 0 MG Propranolol (Inderal) 60 MG PO TID #90 Ref 0 TAB He remained free of psychiatric hospitalizations for the next three years on those medications. The patient was admitted to the neuropsychiatric unit on 03/03/2020 under very similar circumstances. He was in the hospital for 4 days. As a result of that hospitalization he was initiated on lithium carbonate 300 mg 3 times daily. This was in addition to olanzapine 10 mg twice daily, Invega Sustenna 234 mg/month and Topamax 50 mg twice daily. He was returned to his services at the [facility]. A&P from his outpatient psychiatry appointment of 03/22/2020 Assesment & Plan Assessment: 44-year-old male with severe alcohol dependence along with a history of schizophrenia he also has a history of seizure disorder. He is drinking at a high level and has refused consideration of medication assisted treatment in the past. He likely has a psychotic symptoms related to heavy alcohol use. At this point I advised him to discontinue the lithium which she had not taken in a few days. Plan to discuss his case with his telehealth case manager and therapist as I feel like a higher level of care will be more appropriate given his inability to abstain from alcohol. We briefly discussed the idea of medication assisted treatment today, and his lab work was reviewed with liver enzymes and kidney function being reasonable. Given the fact that he has such poor compliance with medications in general I am not sure that prescribing naltrexone or acamprosate at this point would be a great deal benefit, even if he were interested in treatment. Plan: Discontinue lithium Continue Zyprexa 10 mg twice daily Continue Invega 9 mg daily Continue Invega Sustenna 234 mg IM every 30 days He has refills on meds, return to clinic in 2 to 3 weeks. Past Medical/Social History: In 2010 the patient sustained a stroke. 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 Subsequent to this he developed psychotic symptoms, with auditory hallucinations and depression, suicidal ideation and, on occasion, homicidal ideation. He also developed grand mal seizures, which are now currently controlled on Keppra ER 750 mg by mouth twice a day. His psychotic symptoms have been managed with paloperidone, which he was receiving on an outpatient basis in the depot form, 156 mg IM monthly. The patient asserts that his only problem prior to his stroke was hypertension. He had no history of psychiatric disease, hospitalization symptomatology or psychosis. Other Family Medical History: Review of Systems Narrative: Review of Systems Constitutional: Complains of: Fatigue Eyes: Complains of: No eye symptoms ENT/Mouth: Complains of: No ENTM symptoms Cardiovascular: Complains of: No cardiac symptoms Respiratory: Complains of: No respiratory symptoms GI: Complains of: No GI symptoms Neuro: Complains of: No neuro symptoms Musculoskeletal: Complains of: No musculoskeletal symptoms Skin: Complains of: No skin symptoms Hematologic/Lymphatic: Complains of: No hematologic/lymphatic symptoms Endocrine: Complains of: No endocrine symptoms : Complains of: No symptoms Psych: Denies: Depression, Suicide ideation Meds NPU Home Medications Medication Instructions Recorded Confirmed Last Taken Type topiramate 50 mg tablet 50 mg PO BID #60 tab 01/05/20 04/04/20 04/03/20 Rx paliperidone 9 mg tablet,extended 9 mg PO DAILY #30 tab 03/15/20 04/04/20 04/03/20 Rx release 24 hr olanzapine 20 mg tablet 10 mg PO DAILY #30 tab 03/28/20 04/04/20 04/03/20 Rx paliperidone palmitate 234 mg/1.5 234 mg IM Q30D #1 ml 03/28/20 04/04/20 04/04/20 Rx mL intramuscular syringe carvedilol 6.25 mg tablet 6.25 mg PO DAILY #30 tab 03/29/20 04/04/20 04/04/20 Rx fenofibrate nanocrystallized 145 145 mg PO DAILY #30 tab 03/29/20 04/04/20 04/03/20 Rx mg tablet levetiracetam 1,000 mg tablet 1,000 mg PO BID #60 tab 03/29/20 04/04/20 Unknown Rx lisinopril 40 mg tablet 40 mg PO DAILY #30 tab 03/29/20 04/04/20 04/03/20 Rx metformin 500 mg tablet,extended 500 mg PO BID #60 tab 03/29/20 04/04/20 04/03/20 Rx release 24 hr metronidazole 0.75 % lotion 1 applic TOPICAL BID #59 ml 03/29/20 04/04/20 Unknown Rx Vicks Nyquil Liquid See Rx Instructions .ROUTE .COMPLEX 04/04/20 04/04/20 Unknown History Allergies Allergy/AdvReac Type Severity Reaction Status Date / Time clozapine [From Clozaril] AdvReac Severe Lowered Verified 04/04/20 14:52 his WBC he says divalproex sodium AdvReac Severe swelling Verified 04/04/20 14:52 [From Depakote] haloperidol [From Haldol] AdvReac Severe swelling Verified 04/04/20 14:52 nitroglycerin AdvReac Severe Stopped Verified 04/04/20 14:52 heart Bee stings Allergy Severe Swelling & Uncoded 04/04/20 08:40 breathing problems, Anaphylactic shock PFSH NPU PFSH: Medical History Acne rosacea Bipolar disorder Controlled diabetes mellitus with hyperglycemia Current smoker DM neuropathy, painful Essential (primary) hypertension History of alcohol abuse daily use of hard liquor History of coronary artery disease History of CVA (cerebrovascular accident) 2009 Right side weakness due to a bleed History of memory loss History of schizophrenia Mixed hyperlipidemia Psoriasis Seizure disorder Surgical History History of colonoscopy with polypectomy 2015 History of esophagogastroduodenoscopy (EGD) History of eye surgery History of heart artery stent Family History Other Dementia Diabetes Hypertension Lung disease Psychiatric illness Stroke Denies family history of Chronic kidney disease (CKD) Anesthesia complication Bleeding disorder Cancer Social History Smoking and tobacco status: current every day smoker cigarettes Packs smoked per day: 2.5 Years cigarettes smoked: 38 Second hand smoke exposure: Yes Smoking risk assessment/counseling performed?: Yes Alcohol intake: current Alcohol intake frequency: 0-2 Drinks per Day Alcohol type: hard liquor Desire information about alcohol rehabilitation?: No Counseling given: No Desire information about substance/drug rehabilitation?: No Counseling given: No Adopted: No Caregiver/support person: Yes Lives independently: No Household members: friend(s) and caregiver Housing: Manufactured/Mobile home Marital status: Number of children: 8 service: No Current occupational status: disabled Pets and animals: Yes History of recent travel: Yes Details: month an a half ago Out of state: Yes Current gender identity: Male Mental Status Exam MSE Comments: Mental Status Exam: The patient is a countered lying in his bed awake. He is in mild physical distress but in no pain. He accompanies this physician to the interview room ambulating without difficulty. He is believed to be a reliable informant to the best of his ability. Information provided is consistent with that in the chart and internally consistent. Appearance: hygiene is fair; no gross neurological deficits., gait is unremarkable; AIMS=0 Speech: Speech is of normal rate and rhythm and easily understood. Thought processes: Thought processes are abstract. Judgment is adequate for safety. Associations: intact Psychotic processes: There is no indication of guarding or paranoia. There is no attention to the internal stimuli. He reports recent auditory and visual hallucinations of a nondescript type. He hears people screaming and sees shadows. There is no command nature to the hallucinations. He has not had any since being admitted to the hospital. Judgment: Insight is fair. Problem solving skills are adequate for safety. Orientation: The patient is oriented to person, place time and situation. Memory: no deficits noted in immediate, intermediate, or remote spheres. Attention: The patient is alert and interpersonally engaged. Language: Verbalizations are coherent. Fund of knowledge: Fund of knowledge is adequate. Affect/Mood: Affect is consistent with a depressed mood. pt currently denies suicidal ideation Affective range is constricted Psychosis: perception unimpaired except through cognitive distortion; reality testing intact. Vitals/I&O/Wt Last Vital Signs Temp 97.6 F 04/05/20 14:00 Pulse 94 04/05/20 14:00 Resp 20 H 04/05/20 14:00 BP 138/95 04/05/20 14:00 Pulse Ox 95 04/05/20 14:00 Weight last 48 hrs Weight 100.244 kg Data NPU : 04/04/20 13:30 04/04/20 13:30 A&P Assessment and plan (1) Suicidal ideation: Status: Acute (2) Nicotine dependence, unspecified, uncomplicated: Status: Acute (3) Alcohol use disorder, severe, dependence: Status: Chronic (4) Major depression, recurrent, chronic: Status: Acute Additional A&P Information Due to the psychiatric conditions and treatment listed in the Assessment and Plan - the patient requires continued hospitalization. Will provide a safe and therapeutic environment for patient.. Will continue inpatient treatment to allow for medication adjustment and monitoring. Will continue q15 min safety checks. The intent at this time is to continue his outpatient paliperidone. He is just had his Invega Sustenna injection. We will continue the paliperidone 9 mg daily. Zyprexa is going to be discontinued as there is some question of efficacy versus medication side effects with 2 antipsychotic medications at high doses. The patient states that he has never been treated with medication for depression. Celexa will be initiated at 20 mg daily. Potential benefits and side effects of this medication were discussed in detail and the patient agreed with its use. He will be placed on the alcohol withdrawal protocol. He was again encouraged to reconsider the potential utility of engaging in an inpatient alcohol rehabilitation program and given that alcohol will continue to fuel his other psychiatric symptoms and diagnoses even in the face of expected therapeutic treatment. Monitor patient's mood, sleep, appetite, and behavior closely. Encourage patient to participate in individual and group therapeutic sessions on the [place]. Estimated length of stay 5 days The expected benefits and potential side effects of patient's psychiatric medications were discussed with the patient. The patient understands and consents to treatment. CRITERIA FOR DISCHARGE: stable on medications and no longer an imminent threat to self or others Involuntary Hold Information 96 Hour Hold: 96 Hour Involuntary Admission: Yes 96 Hour Hold Ending Date: 04/08/20 96 Hour Hold Ending Time: 12:00 Attestations NPU Medical Necessity Statement*: Patient will remain in the hospital 3 to 5 days until he can achieve sobriety. Coding Level of Care Code Acute Converting Technician for Carlos Armstrong Diagnoses Suicidal ideation R45.851 Nicotine dependence, unspecified, uncomplicated F17.200 Alcohol use disorder, severe, dependence F10.20 Major depression, recurrent, chronic F33.9
[2020-04-05 22:00] VITALS: BP 114/72; PULSE 72; RESP 17; TEMP 36.4; O2SAT 93
[2020-04-06 06:00] VITALS: BP 143/94; PULSE 75; RESP 18; TEMP 36.8; O2SAT 94
[2020-04-06] MEDS: folic acid 1 mg Tablet PO (08:10)
[2020-04-06] MEDS: multivitamin therapeutic Tablet 1 TAB PO (08:11)
[2020-04-06] MEDS: paliperidone 3 MG, paliperidone 6 MG 9 MG PO (08:11)
[2020-04-06] MEDS: citalopram 20 mg Tablet PO (08:11)
[2020-04-06] MEDS: LORazepam 1 mg Tablet PO ×3 (08:11→20:45)
[2020-04-06] MEDS: thiamine 100 mg Tablet PO (08:11)
[2020-04-06] MEDS: nicotine 21 mg Patch 1 PATCH TRANSDERMA (08:12)
--- NOTE | 2020-04-06 12:47 | PM.NPN ---
Subjective NPU Subjective: Interval history: Patient states that he is doing well and is feeling much better. He says he slept poorly last night. He attributes that to the fact that several of his outpatient medications have not been restarted. Otherwise he denies signs and symptoms of alcohol withdrawal at this time. He denies the presence of auditory hallucinations. Mental Status Exam MSE Comments: Mental Status Exam: He is in no physical distress and in no pain. He accompanies this physician to the interview room ambulating without difficulty. He is believed to be a reliable informant to the best of his ability. Information provided is consistent with that in the chart and internally consistent. Appearance: hygiene is fair; no gross neurological deficits., gait is unremarkable; AIMS=0 Speech: Speech is of normal rate and rhythm and easily understood. Thought processes: Thought processes are abstract. Judgment is adequate for safety. Associations: intact Psychotic processes: There is no indication of guarding or paranoia. There is no attention to the internal stimuli. He reports recent auditory and visual hallucinations of a nondescript type. He hears people screaming and sees shadows. There is no command nature to the hallucinations. He has not had any since being admitted to the hospital. Judgment: Insight is fair. Problem solving skills are adequate for safety. Orientation: The patient is oriented to person, place time and situation. Memory: no deficits noted in immediate, intermediate, or remote spheres. Attention: The patient is alert and interpersonally engaged. Language: Verbalizations are coherent. Fund of knowledge: Fund of knowledge is adequate. Affect/Mood: Affect is consistent with a depressed mood. pt currently denies suicidal ideation Affective range is good Psychosis: perception unimpaired except through cognitive distortion; reality testing intact. Cognition: Patient Appearance: Appropriate Level of Consciousness: Awake, Alert, Appropriate and Follows Commands Patient Cognition Impaired: No Ability to Follow Directions: Excellent Patient Orientation (long list): Person, Place, Time, Name, Age, Birthday, Day of Month, Day of Week, Month, Time of Day and Year Comprehension Ability: No Impairment Hallucination Type: Auditory Delusion Description: Not Present Thought Process: Appropriate Affect: Affect Description: Appropriate and Calm Depressive Symptoms: Increased Anxiety and Increased Irritability Behavior: Patient Behavior: Appropriate Speech Pattern: Appropriate and Clear Vitals/I&O/Wt Last Vital Signs Temp 98.2 F 04/06/20 06:00 Pulse 75 04/06/20 06:00 Resp 18 04/06/20 06:00 BP 143/94 04/06/20 06:00 Pulse Ox 94 04/06/20 06:00 Data NPU : 04/04/20 13:30 04/04/20 13:30 A&P Assessment and plan (1) Suicidal ideation: Status: Acute (2) Nicotine dependence, unspecified, uncomplicated: Status: Acute (3) Alcohol use disorder, severe, dependence: Status: Chronic (4) Major depression, recurrent, chronic: Status: Acute Additional A&P Information Due to the psychiatric conditions and treatment listed in the Assessment and Plan - the patient requires continued hospitalization. Will provide a safe and therapeutic environment for patient.. Will continue inpatient treatment to allow for medication adjustment and monitoring. Will continue q15 min safety checks. The intent at this time is to continue his outpatient paliperidone. He is just had his Invega Sustenna injection. We will continue the paliperidone 9 mg daily. Zyprexa is going to be discontinued as there is some question of efficacy versus medication side effects with 2 antipsychotic medications at high doses. The patient states that he has never been treated with medication for depression. Celexa will be initiated at 20 mg daily. Potential benefits and side effects of this medication were discussed in detail and the patient agreed with its use. He will be placed on the alcohol withdrawal protocol. He was again encouraged to reconsider the potential utility of engaging in an inpatient alcohol rehabilitation program and given that alcohol will continue to fuel his other psychiatric symptoms and diagnoses even in the face of expected therapeutic treatment. Hospital day #3: Patient is doing well and is progressing through the alcohol withdrawal protocol without difficulty. Plan: Restart outpatient medications. Decrease lorazepam to 0.5 mg 3 times daily. Monitor patient's mood, sleep, appetite, and behavior closely. Encourage patient to participate in individual and group therapeutic sessions on the [place]. Estimated length of stay 5 days The expected benefits and potential side effects of patient's psychiatric medications were discussed with the patient. The patient understands and consents to treatment. CRITERIA FOR DISCHARGE: stable on medications and no longer an imminent threat to self or others Involuntary Hold Information 96 Hour Hold: 96 Hour Involuntary Admission: Yes 96 Hour Hold Ending Date: 04/08/20 96 Hour Hold Ending Time: 12:00 Attestations NPU Medical Necessity Statement*: Patient will remain in the hospital another 2-3 nights for his alcohol withdrawal protocol. 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
[2020-04-06] MEDS: fenofibrate 145 mg Tablet PO (13:42)
[2020-04-06] MEDS: carvedilol 6.25 mg Tablet PO (13:42)
[2020-04-06 14:00] VITALS: BP 118/77; PULSE 74; RESP 20; TEMP 36.7; O2SAT 94
[2020-04-06] MEDS: metformin XR 500 MG Tablet PO (17:26)
[2020-04-06] MEDS: topiramate 100 mg Tablet 50 MG PO (17:26)
[2020-04-06] MEDS: levETIRAcetam 500 mg Tablet 1000 MG PO (17:26)
--- NOTE | 2020-04-06 18:09 | PC.RESP ---
Smoking Cessation information sent to patient.
[2020-04-06 19:55] VITALS: BP 102/62; PULSE 77; RESP 17; TEMP 36.3; O2SAT 94
[2020-04-06] MEDS: acetaminophen 325 mg Tablet 650 MG PO (20:44)
[2020-04-06] MEDS: trazodone 50 mg Tablet PO (20:45)
[2020-04-06] MEDS: hyDROXYzine 25 mg Capsule 50 MG PO (20:45)
--- NOTE | 2020-04-06 21:32 | PC.NURSE ---
Ciwa 10 Pt is mildly anxious, been pacing since abotu 190, just went to bed. He is mildly diaphoretic, says that he has burning pain in all four extremities. No visible tremor, but pt says it is felt. will continue to monitor
[2020-04-07 05:38] VITALS: BP 122/82; PULSE 68; RESP 16; TEMP 36.8; O2SAT 96
[2020-04-07] MEDS: citalopram 20 mg Tablet PO (08:00)
[2020-04-07] MEDS: LORazepam 0.5 mg Tablet PO (08:00)
[2020-04-07] MEDS: paliperidone 3 MG, paliperidone 6 MG 9 MG PO (08:00)
[2020-04-07] MEDS: folic acid 1 mg Tablet PO (08:00)
[2020-04-07] MEDS: fenofibrate 145 mg Tablet PO (08:00)
[2020-04-07] MEDS: metformin XR 500 MG Tablet PO (08:00)
[2020-04-07] MEDS: lisinopril 20 mg Tablet 40 MG PO (08:00)
[2020-04-07] MEDS: carvedilol 6.25 mg Tablet PO (08:01)
[2020-04-07] MEDS: levETIRAcetam 500 mg Tablet 1000 MG PO (08:01)
[2020-04-07] MEDS: topiramate 100 mg Tablet 50 MG PO (08:01)
[2020-04-07] MEDS: multivitamin therapeutic Tablet 1 TAB PO (08:01)
[2020-04-07] MEDS: thiamine 100 mg Tablet PO (08:01)
--- NOTE | 2020-04-07 10:05 | P.DS_ITS ---
Diagnoses at Discharge Discharge Diagnosis (1) Suicidal ideation: Status: Resolved (2) Nicotine dependence, unspecified, uncomplicated: Status: Chronic (3) Alcohol use disorder, severe, dependence: Status: Chronic (4) Major depression, recurrent, chronic: Status: Chronic Reason for Visit Reason for Visit: SI Brief History: Reinaldo Flores is a 44-year-old male with an extensive history of admissions and outpatient treatment at the [facility]. Historically he has struggled with depression and auditory hallucinations. He has a diagnosis of schizophrenia based primarily on the presence of auditory hallucinations alone. He says that Invega is the only medication that has been helpful with the hallucinations. He was seen by his outpatient psychiatrist 2 weeks ago. It was an unremarkable visit except for the fact that the patient is drinking a half a gallon of hard liquor per day. Unfortunately, that is a pattern of behavior to such a degree that it is not given as cause for alarm when reported. He continues to labor under significant symptoms of depression with multiple extenuating circumstances. He continues to have complicated morning over the loss of his marriage 11 years ago and the removal of contact from his children. He has no regular contact with them. He has lost his employment. His alcohol use likely also feels depressive symptoms. These include anhedonia, feelings of hopelessness and worthlessness, low self- esteem, irritability, poor concentration, poor energy and insomnia. He states that he received his scheduled injection of Invega 234 mg. Then he immediately became despondent to the point of imminently suicidal. He has been this way before. He does not feel that it was the injection that caused the suicidality but rather his drinking. He expects that this will be resolved once he is through the period of withdrawal for his alcohol. We discussed his alcohol intake. He has been through rehab 1 time last year. This was somewhere in [place]. He immediately began drinking after the rehab and says that it provided no significant benefit. However this was his only experience at rehab. He has a history of a withdrawal symptoms but no DTs. He has no history of seizures. Laboratory Tests 04/04/20 04/04/20 12:20 13:30 Urine Opiates Screen Negative Ur Barbiturates Screen Negative Ur Phencyclidine Scrn Negative Ur Amphetamines Screen Negative U Benzodiazepines Scrn Negative Urine Cocaine Screen Negative U Marijuana (THC) Screen Negative Ethyl Alcohol 98 H ER Physician note: HPI Narrative: Reinaldo is a 44-year-old male history of schizophrenia who please recall as he is having suicidal ideations. He told the police that he want to kill himself and had a plan of jumping out into traffic. He also told EMS he wanted to jump out of the back of the ambulance. Patient is quite anxious here and is pacing in the room. He denies any active suicidality at this time. Hospital Course Hospital Course Assessment and plan (1) Suicidal ideation: Status: Acute (2) Nicotine dependence, unspecified, uncomplicated: Status: Acute (3) Alcohol use disorder, severe, dependence: Status: Chronic (4) Major depression, recurrent, chronic: Status: Acute Additional A&P Information Due to the psychiatric conditions and treatment listed in the Assessment and Plan - the patient requires continued hospitalization. Will provide a safe and therapeutic environment for patient.. Will continue inpatient treatment to allow for medication adjustment and monitoring. Will continue q15 min safety checks. The intent at this time is to continue his outpatient paliperidone. He is just had his Invega Sustenna injection. We will continue the paliperidone 9 mg daily. Zyprexa is going to be discontinued as there is some question of efficacy versus medication side effects with 2 antipsychotic medications at high doses. The patient states that he has never been treated with medication for depression. Celexa will be initiated at 20 mg daily. Potential benefits and side effects of this medication were discussed in detail and the patient agreed with its use. He will be placed on the alcohol withdrawal protocol. He was again encouraged to reconsider the potential utility of engaging in an inpatient alcohol rehabilitation program and given that alcohol will continue to fuel his other psychiatric symptoms and diagnoses even in the face of expected therapeutic treatment. Hospital day #3: Patient is doing well and is progressing through the alcohol withdrawal protocol without difficulty. Plan: Restart outpatient medications. Decrease lorazepam to 0.5 mg 3 times daily. Hospital day #4: Patient reports that he is feeling well and is ready to be discharged. He denied suicidal or homicidal ideation. He denied the presence of auditory or visual hallucinations. It was his belief that he would go home and eventually be placed in a senior care. It was his placement in a senior care that would keep him from using alcohol. He was confronted about several misconceptions in that plan. It was strongly recommended that he go into a rehabilitation program and given the severity of his alcohol abuse, his prognosis for getting clean and sober without a formal program is poor. He seemed to accept that assessment but stated he was not ready to go into a rehabilitation program at this time. He said that he would consider it in the future. Involuntary Hold Information 96 Hour Hold: 96 Hour Involuntary Admission: Yes 96 Hour Hold Ending Date: 04/08/20 96 Hour Hold Ending Time: 12:00 Mental Status Exam MSE Comments: Discharge Mental Status Exam: Appearance: hygiene is good; no gross neurological deficits., gait is unremarkab le; AIMS=0 Speech: Speech is of normal rate and rhythm and easily understood. Thought processes: Thought processes are abstract. Judgment is adequate for safety. Associations: intact Psychotic processes: There is no indication of guarding or paranoia. There is no attention to the internal stimuli. Auditory and visual hallucinations are denied. Judgment: Insight is fair. Problem solving skills are adequate for safety. Orientation: The patient is oriented to person, place time and situation. Memory: no deficits noted in immediate, intermediate, or remote spheres. Attention: The patient is alert and interpersonally engaged. Language: Verbalizations are coherent. Fund of knowledge: Fund of knowledge is adequate. Affect/Mood: Affect is consistent with a euthymic mood. denied suicidal ideation Affective range is appropriate. Psychosis: perception unimpaired except through cognitive distortion; reality testing intact. Discharge Data Vitals: Last Vital Signs Temp 98.2 F 04/07/20 05:38 Pulse 68 04/07/20 05:38 Resp 16 04/07/20 05:38 BP 122/82 04/07/20 05:38 Pulse Ox 96 04/07/20 05:38 Discharge Plan Discharge Patient Disposition: Home Condition: Stable Prescriptions: New citalopram 20 mg Tablet 20 mg PO DAILY Qty: 30 RF: 2 folic acid 1 mg Tablet 1 mg PO DAILY Qty: 30 RF: 0 Vitamin B-1 (mononitrate) 100 mg Tablet 100 mg PO DAILY Qty: 30 RF: 0 Thera 400 mcg Tablet 1 tab PO DAILY Qty: 30 RF: 0 Continued carvedilol [Coreg] 6.25 mg tablet 6.25 mg PO DAILY Qty: 30 RF: 2 levetiracetam [Keppra] 1,000 mg tablet 1,000 mg PO BID Qty: 60 RF: 2 lisinopril 40 mg tablet 40 mg PO DAILY Qty: 30 RF: 2 metformin 500 mg tablet extended release 24 hr 500 mg PO BID Qty: 60 RF: 2 metronidazole [MetroLotion] 0.75 % lotion 1 applic TOPICAL BID Qty: 59 RF: 2 fenofibrate nanocrystallized [Tricor] 145 mg tablet 145 mg PO DAILY Qty: 30 RF: 2 topiramate 50 mg tablet 50 mg PO BID Qty: 60 RF: 2 paliperidone [Invega] 9 mg tablet extended release 24hr 9 mg PO DAILY Qty: 30 RF: 2 Invega Sustenna 234 mg/1.5 mL syringe 234 mg IM Q30D Qty: 1 RF: 2 Discontinued olanzapine 20 mg tablet 10 mg PO DAILY Qty: 30 RF: 2 Vicks Nyquil Liquid See Rx Instructions .ROUTE .COMPLEX RF: 0 Discharge Orders: Discharge Order (Routine); Ordered 04/07/20 Ordered By: Chidi Arriaga Referrals: Joel Rivas, [employer] [Primary Care Provider] - Discharge Attestations NPU Time Spent in Discharge Care*: greater than 30 min Coding Level of Care Code Acute Spring Fitter Helper for g Fwd Diagnoses Suicidal ideation R45.851 Nicotine dependence, unspecified, uncomplicated F17.200 Alcohol use disorder, severe, dependence F10.20 Major depression, recurrent, chronic F33.9
[2020-04-07 10:35] VITALS: BP 122/82; PULSE 68; RESP 16; TEMP 36.8; O2SAT 96
== END 2020-04-07 12:37 | disposition home or self-care (01) | DRG 897 ==
LOC: ER 14:00 → NP 14:56
PROVIDERS: Emergency Medicine; Admitting Provider Psychiatry & Neurology Psychiatry; PCP Nurse Practitioner; Visit Provider Psychiatry & Neurology Psychiatry
DX: F10.229 Alcohol dependence with intoxication, unspecified (principal); R45.851 Suicidal ideations; F33.2 Major depressive disorder, recurrent severe without psychotic features; F17.210 Nicotine dependence, cigarettes, uncomplicated; F20.9 Schizophrenia, unspecified; Y90.4 Blood alcohol level of 80-99 mg/100 ml
CPT/HCPCS: 12345; 80053; 80306; 80307; 85025; 96372; 99284; J2060

== ENCOUNTER 2020-04-28 17:51 | Inpatient (IN) | payer MEDICARE, SELFPAY ==
[2020-04-28 17:51] VITALS: BP 137/97; PULSE 104; RESP 22; TEMP 36.4; O2SAT 95; BMI 30.4
[2020-04-28 18:56] LABS: Amphetamines Screen Urine Negative (Negative); Barbiturates Screen Urine Negative (Negative); Benzodiazepines Screen Urine Negative (Negative); Cocaine Screen Urine Negative (Negative); Opiate Screen Urine Negative (Negative); PCP Screen Urine Negative (Negative); THC Screen Urine Negative (Negative)
[2020-04-28] MEDS: LORazepam 2 mg Tablet PO (19:02)
--- NOTE | 2020-04-28 19:05 | PC.NURSE ---
pt states I would like to see about getting my clothes back and leaving. I can just go to the railroad tracks. pt informed that he is on a 96 hr hold and that we have to make sure he is safe. pt repeats Well I can just go to the railroad tracks. When asked why the pt would go to the railroad tracks the pt refused to answer. pt is pacing the room at this time.
--- NOTE | 2020-04-28 19:21 | ED_ITS ---
HPI - Psych General: Chief Complaint: Psychiatric Symptoms Stated Complaint: SI/ HEARING VOICES Time Seen by Provider: 04/28/20 18:02 History of Present Illness: HPI Narrative: This patient is a 44-year-old gentleman who presents with suicidal ideation. He is having auditory hallucinations and the voices are telling him to run out in traffic. He later mentioned going on to the train tracks as well. He is quite agitated and pacing back and forth in the room. He has a history of schizophrenia and gets Invega shots. He got 1 this morning at 9 AM and he said it has only made things worse. complaint: suicidal ideation Onset (ago): day(s) Duration: constant and getting worse History of same: Yes Relieving factors: none Exacerbating factors: none Associated psychiatric symptoms: depression, suicidal ideation, racing thoughts and auditory hallucinations Associated symptoms: Reports auditory hallucinations and suicidal ideation Treatments prior to arrival: none Review of Systems General: Reports: 10 or more systems reviewed and unremarkable except in HPI and below Const: Denies: fever(s), chills, fatigue or malaise Eyes: Denies: change in vision ENMT: Denies: odynophagia Card: Denies: chest pain or swelling of feet/ankles Resp: Denies: dyspnea, productive cough or non-productive cough GI: Denies: abdominal pain, nausea or vomiting : Denies: flank pain Musc: Denies: neck pain or back pain Skin/Breast: Denies: rash Neuro: Denies: headache(s), numbness in extremities or weakness in extremities Psych: Reports: auditory hallucinations and suicidal ideation Len/Lymph: Denies: easy bruising or easy bleeding [facility] ED PFSH: Medical History Acne rosacea Bipolar disorder Controlled diabetes mellitus with hyperglycemia Current smoker DM neuropathy, painful Essential (primary) hypertension History of alcohol abuse daily use of hard liquor History of coronary artery disease History of CVA (cerebrovascular accident) 2010 Right side weakness due to a bleed History of memory loss History of schizophrenia Mixed hyperlipidemia Psoriasis Seizure disorder Surgical History History of colonoscopy with polypectomy 2016 History of esophagogastroduodenoscopy (EGD) History of eye surgery History of heart artery stent Family History Other Dementia Diabetes Hypertension Lung disease Psychiatric illness Stroke Denies family history of Chronic kidney disease (CKD) Anesthesia complication Bleeding disorder Cancer Social History Smoking and tobacco status: current every day smoker cigarettes Packs smoked per day: 2.5 Years cigarettes smoked: 38 Second hand smoke exposure: Yes Smoking risk assessment/counseling performed?: Yes Alcohol intake: current Alcohol intake frequency: 0-2 Drinks per Day Alcohol type: hard liquor Desire information about alcohol rehabilitation?: No Counseling given: No Desire information about substance/drug rehabilitation?: No Counseling given: No Adopted: No Caregiver/support person: Yes Lives independently: No Household members: friend(s) and caregiver Housing: Manufactured/Mobile home Marital status: Number of children: 8 service: No Current occupational status: disabled Pets and animals: Yes History of recent travel: Yes Details: month an a half ago Out of state: Yes Current gender identity: Male Physical Exam Const: COMMON NORMALS: alert HENMT: HEAD & SCALP: normal to inspection FACE & SINUS: normal facial exam Eye: GENERAL EYE: appearance normal, both eyes and all related structures Neck/C-Spine: COMMON NORMALS: supple, no meningeal signs and no JVD Chest: COMMONS NORMALS: normal inspection of the chest Resp: COMMON NORMALS: normal respiratory effort, No use of accessory muscles and clear to auscultation bilaterally AUSCULTATION: clear to auscultation bilaterally Cardio: COMMON NORMALS: no JVD, regular rate, regular rhythm and No murmurs present (Cardio) RATE: regular rate RHYTHM: regular rhythm GI: COMMON NORMALS: Normal to inspection, nondistended, normoactive bowel sounds present, Soft to palpation and non-tender INSPECTION: Yes normal to i nspection AUSCULTATION: Yes normoactive bowel sounds PALPATION: Yes Soft to palpation Back/Pelvis: COMMON NORMALS: thoracic and lumbar spine normal to inspection Extremity: COMMON NORMALS: normal to inspection Neuro: COMMON NORMALS: moves all extremities, no focal motor deficits and no sensory deficits noted SENSORIUM/ORIENTATION: Yes alert MENINGEAL SIGNS: Yes no meningeal signs Psych: ATTITUDE: Yes bizarre and Yes agitated ACTIVITY/MOTOR BEHAVIOR: Yes psychomotor agitation, Yes hyperactivity and Yes restless MOOD & AFFECT: Yes anxious THOUGHT PROCESS: disorganized and Perseverating thought process present THOUGHT CONTENT: Yes Suicidality present Skin: COMMON NORMALS: no rashes or lesions noted and turgor normal GENERAL SKIN EXAM: no rashes or lesions noted and turgor normal MDM - Psych Lab Data: Labs: Lab Results 04/28/20 Range/Units 18:15 Urine Opiates Scre en Negative (Negative) ng/mL Ur Barbiturates Sc reen Negative (Negative) ng/mL Ur Phencyclidine S crn Negative (Negative) ng/mL Ur Amphetamines Sc reen Negative (Negative) ng/mL U Benzodiazepines Scrn Negative (Negative) ng/mL Urine Cocaine Scre en Negative (Negative) ng/mL U Marijuana (THC) Screen Negative (Negative) ng/mL Discharge Plan Discharge Prescriptions: No Action carvedilol [Coreg] 6.25 mg tablet 6.25 mg PO DAILY Qty: 30 RF: 2 levetiracetam [Keppra] 1,000 mg tablet 1,000 mg PO BID Qty: 60 RF: 2 lisinopril 40 mg tablet 40 mg PO DAILY Qty: 30 RF: 2 metformin 500 mg tablet extended release 24 hr 500 mg PO BID Qty: 60 RF: 2 metronidazole [MetroLotion] 0.75 % lotion 1 applic TOPICAL BID Qty: 59 RF: 2 fenofibrate nanocrystallized [Tricor] 145 mg tablet 145 mg PO DAILY Qty: 30 RF: 2 paliperidone [Invega] 9 mg tablet extended release 24hr 9 mg PO DAILY Qty: 30 RF: 2 Invega Sustenna 234 mg/1.5 mL syringe 234 mg IM Q30D Qty: 1 RF: 2 topiramate 50 mg tablet 50 mg PO BID Qty: 60 RF: 2 citalopram 20 mg Tablet 20 mg PO DAILY Qty: 30 RF: 2 folic acid 1 mg Tablet 1 mg PO DAILY Qty: 30 RF: 0 B Complex Tablet Extended Release 1 tab PO DAILY RF: 0 triamcinolone acetonide 0.1 % ointment See Rx Instructions .ROUTE .COMPLEX RF: 0 aspirin 81 mg Tablet 81 mg PO DAILY RF: 0 Coding Level of Care Code ED Certified Ophthalmic Assistant for Carlos Fwdhiraj
[2020-04-28 20:11] LABS: Basophils # 0.1 10^3/uL (0.0-0.1); Basophils % 0.7 %; Eosinophils # 0.6 10^3/uL (0.0-0.8); Hemoglobin 14.9 g/dL (11.7-16.6); Lymphocytes # 2.7 10^3/uL (0.8-4.8); Lymphocytes % 23.3 %; Mean Corpuscular HGB Conc 33.9 g/dL (30.0-36.0); Mean Corpuscular Volume 97.6 fL (80-94); Mean Platelet Volume 11.6 fL (7.4-10.4); Monocytes # 0.9 10^3/uL (0.2-0.9); Monocytes % 7.4 %; Neutrophils # 7.41 10^3/uL (1.8-7.7); Neutrophils % 63.3 %; Nucleated Red Blood Cells % 0 %; Platelet Count 239 10^3/cmm (130-400); Red Blood Count 4.51 10^6/uL (4.1-5.3); Red Cell Distribution Width 13.2 % (12.1-15.1); White Blood Count 11.7 10^3/uL (4.0-10.0)
[2020-04-28 20:27] VITALS: BP 107/79; PULSE 95; RESP 18; O2SAT 97
[2020-04-28 20:48] LABS: Alanine Aminotransferase 48 U/L (0-41); Albumin Level 4.5 g/dL (3.5-5.2); Alkaline Phosphatase 40 IU/L (40-130); Anion Gap 15.6 (5-19); Aspartate Amino Transferase 35 U/L (0-40); Blood Urea Nitrogen 10 mg/dL (6-20); Calcium 9.7 mg/dL (8.5-10.5); Carbon Dioxide 20 mmol/L (22-29); Chloride 104 mmol/L (98-107); Globulin 2.7 g/dL (1.3-4.6); Glomerular Filtration Rate 90.8 mL/min (90-130); Glucose 112 mg/dL (65-115); Osmolality Calculated 282 mOsm/kg (285-295); Potassium 3.6 mmol/L (3.5-5.1); Sodium 136 mmol/L (136-145); Total Bilirubin 0.6 mg/dL (0.15-1.2); Total Protein 7.2 g/dL (6.6-8.7)
[2020-04-28 20:58] LABS: Acetaminophen < 5.0 ug/mL (10-30); Alcohol Level < 10 mg/dL (0-10); Salicylate < 0.3 mg/dL (3-10)
--- NOTE | 2020-04-28 21:04 | PC.NURSE ---
pt report called to Ag ANDERSEN in SBAR format.
[2020-04-28 22:00] VITALS: BP 103/68; PULSE 104; RESP 18; TEMP 36.6; O2SAT 95
[2020-04-28] MEDS: trazodone 50 mg Tablet PO (22:23)
[2020-04-28] MEDS: hyDROXYzine 25 mg Capsule 50 MG PO (22:23)
--- NOTE | 2020-04-28 22:26 | PC.NURSE ---
Skin assessment revealed no injuries or wounds.
[2020-04-29 06:00] VITALS: BP 78/48; PULSE 61; RESP 15; TEMP 36.6; O2SAT 96
[2020-04-29 08:36] LABS: Glucose Point of Care 133 mg/dL (70-110)
[2020-04-29] MEDS: aspirin 81 mg EC Tablet PO (09:35)
[2020-04-29] MEDS: fenofibrate 145 mg Tablet PO (09:35)
[2020-04-29] MEDS: paliperidone ER 3 mg Tablet 9 MG PO (09:35)
[2020-04-29] MEDS: topiramate 25 mg Tablet 50 MG PO ×2 (09:35→21:40)
[2020-04-29] MEDS: metformin XR 500 MG Tablet PO ×2 (09:35→21:42)
[2020-04-29] MEDS: folic acid 1 mg Tablet PO (09:35)
[2020-04-29] MEDS: b-complex-vitamin c Tablet 1 EACH PO (09:35)
[2020-04-29] MEDS: citalopram 20 mg Tablet PO (09:35)
[2020-04-29] MEDS: levETIRAcetam 500 mg Tablet 1000 MG PO ×2 (09:35→21:39)
--- NOTE | 2020-04-29 11:41 | P.HP_ITS ---
Providers/Chief Complaint Admitting Physician: Samuel Torres MD Primary Care Provider: ANILA MartelC Chief Complaint: SI/ HEARING VOICES HPI NPU History of Present Illness Reinaldo Flores is a 44 year old male who presented to the emergency [facility] with the following report: Chief Complaint: Psychiatric Symptoms Stated Complaint: SI/ HEARING VOICES Time Seen by Provider: 04/28/20 18:02 History of Present Illness: HPI Narrative: This patient is a 44-year-old gentleman who presents with suicidal ideation. He is having auditory herbert ucinations and the voices are telling him to run out in traffic. He later mentioned going on to the train tracks as well. He is quite agitated and pacing back and forth in the room. He has a history of schizophrenia and gets Invega shots. He got 1 this morning at 9 AM and he said it has only made things worse. complaint: suicidal ideation Onset (ago): day(s) Duration: constant and getting worse History of same: Yes Relieving factors: none Exacerbating factors: none Associated psychiatric symptoms: depression, suicidal ideation, racing thoughts and auditory hallucinations Associated symptoms: Reports auditory hallucinations and suicidal ideation Treatments prior to arrival: none. He was admitted to the neuropsychiatric unit for definitive treatment of those issues. Today he presents reporting that he has had some rough time since his last hospitalization. He reports that he finally acknowledges that he has to get the alcohol out of the way so he can get the help he needed this office. He is current with his Invega injection. He reports it has been 2 weeks since his last drink. He reports that he loves of pickup where he left off last hospitalization where we were trying to get him into the lamp light. He reports that he continues to struggle functioning independently but knows that he had a little bit of assistance he would have a more productive more effective life and his mental health could be stable and he hopes to take drinking out of the picture. He endorses being safe here but reports that he has had worsening suicidal thoughts recently and he is open to make sure that he is on the right medications and possibly get connected with family. We reviewed his 04/05/2020 inpatient evaluation and he reports that it is a accurate depiction of his psychosocial circumstances with no substantive changes. An excerpt can be found below. Per his 04/05/2020 [facility] inpatient evaluation: History of Present Illness Reinaldo Flores is a 44-year-old male with an extensive history of admissions and outpatient treatment at the [facility]. Historically he has struggled with depression and auditory hallucinations. He has a diagnosis of schizophrenia based primarily on the presence of auditory hallucinations alone. He says that Invega is the only medication that has been helpful with the hallucinations. He was seen by his outpatient psychiatrist 2 weeks ago. It was an unremarkable visit except for the fact that the patient is drinking a half a gallon of hard liquor per day. Unfortunately, that is a pattern of behavior to such a degree that it is not given as cause for alarm when reported. He continues to labor under significant symptoms of depression with multiple extenuating circumstances. He continues to have complicated morning over the loss of his marriage 11 years ago and the removal of contact from his children. He has no regular contact with them. He has lost his employment. His alcohol use likely also feels depressive symptoms. These include anhedonia, feelings of hopelessness and worthlessness, low self-esteem, irritability, poor concentration, poor energy and insomnia. He states that he received his scheduled injection of Invega 234 mg. Then he immediately became despondent to the point of imminently suicidal. He has been this way before. He does not feel that it was the injection that caused the suicidality but rather his drinking. He expects that this will be resolved once he is through the period of withdrawal for his alcohol. We discussed his alcohol intake. He has been through rehab 1 time last year. This was somewhere in [place]. He immediately began drinking after the rehab and says that it provided no significant benefit. However this was his only experience at rehab. He has a history of a withdrawal symptoms but no DTs. He has no history of seizures. Laboratory Tests 04/04/20 04/04/20 12:20 13:30 Urine Opiates Screen Negative Ur Barbiturates Screen Negative Ur Phencyclidine Scrn Negative Ur Amphetamines Screen Negative U Benzodiazepines Scrn Negative Urine Cocaine Screen Negative U Marijuana (THC) Screen Negative Ethyl Alcohol 98 H ER Physician note: HPI Narrative: Reinaldo is a 44-year-old male history of schizophrenia who please recall as he is having suicidal ideations. He told the police that he want to kill himself and had a plan of jumping out into traffic. He also told EMS he wanted to jump out of the back of the ambulance. Patient is quite anxious here and is pacing in the room. He denies any active suicidality at this time. Past psychiatric history: This is the 12th psychiatric hospitalization at [facility] over the past 7 years. 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 He subsequently had a stroke followed by auditory hallucinations and has been hospitalized here in a psychotic episode just a week ago. The patient comes in, having been discovered by the police he was at that point wanted to lay on the railroad tracks and get himself killed. He also has absences, which often and with him in surprising situations that could compromise his Pollok. The patient has a history of alcohol consumption with, he claims, 3-4 beers in a week since he was discharged. He denies illicit drugs. He clearly needs hospitalization at this time in light of the fact that he is actively psychotic and harboring potentially dangerous ideation directed at himself and others. He was discharged 13 days later on : Diazepam (Valium) 10 MG PO TID PRN MARKED ANXIETy Doxepin (Sinequan) 25 MG PO HS #30 Paliperidone (Invega) 9 MG PO DAILY Perphenazine (Trilafon Tab) 8 MG PO BID Days Levetiracetam Er (Keppra Er) 750 MG PO BID MG Lisinopril (Zestril) 40 MG PO DAILY #30 Paliperidone Palmitate (Invega Sustenna) 156 MG IM give on 08/15/15 Days 1 Ref 0 MG Propranolol (Inderal) 60 MG PO TID #90 Ref 0 TAB He remained free of psychiatric hospitalizations for the next three years on those medications. The patient was admitted to the neuropsychiatric unit on 03/03/2020 under very similar circumstances. He was in the hospital for 4 days. As a result of that hospitalization he was initiated on lithium carbonate 300 mg 3 times daily. This was in addition to olanzapine 10 mg twice daily, Invega Sustenna 234 mg/month and Topamax 50 mg twice daily. He was returned to his services at the [facility]. A&P from his outpatient psychiatry appointment of 03/22/2020 Assesment & Plan Assessment: 44-year-old male with severe alcohol dependence along with a history of schizophrenia he also has a history of seizure disorder. He is drinking at a high level and has refused consideration of medication assisted treatment in the past. He likely has a psychotic symptoms related to heavy alcohol use. At this point I advised him to discontinue the lithium which she had not taken in a few days. Plan to discuss his case with his director case management and therapist as I feel like a higher level of care will be more appropriate given his inability to abstain from alcohol. We briefly discussed the idea of medication assisted treatment today, and his lab work was reviewed with liver enzymes and kidney function being reasonable. Given the fact that he has such poor compliance with medications in general I am not sure that prescribing naltrexone or acamprosate at this point would be a great deal benefit, even if he were interested in treatment. Plan: Discontinue lithium Continue Zyprexa 10 mg twice daily Continue Invega 9 mg daily Continue Invega Sustenna 234 mg IM every 30 days He has refills on meds, return to clinic in 2 to 3 weeks. Past Medical/Social History: In 2010 the patient sustained a stroke. 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 Subsequent to this he developed psychotic symptoms, with auditory hallucinations and depression, suicidal ideation and, on occasion, homicidal ideation. He also developed grand mal seizures, which are now currently controlled on Keppra ER 750 mg by mouth twice a day. His psychotic symptoms have been managed with paloperidone, which he was receiving on an outpatient basis in the depot form, 156 mg IM monthly. The patient asserts that his only problem prior to his stroke was hypertension. He had no history of psychiatric disease, hospitalization symptomatology or psychosis. Other Family Medical History: Review of Systems Narrative: Review of Systems Constitutional: Complains of: Fatigue Eyes: Complains of: No eye symptoms ENT/Mouth: Complains of: No ENTM symptoms Cardiovascular: Complains of: No cardiac symptoms Respiratory: Complains of: No respiratory symptoms GI: Complains of: No GI symptoms Neuro: Complains of: No neuro symptoms Musculoskeletal: Complains of: No musculoskeletal symptoms Skin: Complains of: No skin symptoms Hematologic/Lymphatic: Complains of: No hematologic/lymphatic symptoms Endocrine: Complains of: No endocrine symptoms : Complains of: No symptoms Psych: Denies: Depression, Suicide ideation Meds NPU Home Medications Medication Instructions Recorded Confirmed Last Taken Type topiramate 50 mg tablet 50 mg PO BID #60 tab 01/05/20 04/04/20 04/03/20 Rx paliperidone 9 mg tablet,extended 9 mg PO DAILY #30 tab 03/15/20 04/04/20 04/03/20 Rx release 24 hr olanzapine 20 mg tablet 10 mg PO DAILY #30 tab 03/28/20 04/04/20 04/03/20 Rx paliperidone palmitate 234 mg/1.5 234 mg IM Q30D #1 ml 03/28/20 04/04/20 04/04/20 Rx mL intramuscular syringe carvedilol 6.25 mg tablet 6.25 mg PO DAILY #30 tab 03/29/20 04/04/20 04/04/20 Rx fenofibrate nanocrystallized 145 145 mg PO DAILY #30 tab 03/29/20 04/04/20 04/03/20 Rx mg tablet levetiracetam 1,000 mg tablet 1,000 mg PO BID #60 tab 03/29/20 04/04/20 Unknown Rx lisinopril 40 mg tablet 40 mg PO DAILY #30 tab 03/29/20 04/04/20 04/03/20 Rx metformin 500 mg tablet,extended 500 mg PO BID #60 tab 03/29/20 04/04/20 04/03/20 Rx release 24 hr metronidazole 0.75 % lotion 1 applic TOPICAL BID #59 ml 03/29/20 04/04/20 Unknown Rx Vicks Nyquil Liquid See Rx Instructions .ROUTE .COMPLEX 04/04/20 04/04/20 Unknown History Allergies Allergy/AdvReac Type Severity Reaction Status Date / Time clozapine [From Clozaril] AdvReac Severe Lowered Verified 04/04/20 14:52 his WBC he says divalproex sodium AdvReac Severe swelling Verified 04/04/20 14:52 [From Depakote] haloperidol [From Haldol] AdvReac Severe swelling Verified 04/04/20 14:52 nitroglycerin AdvReac Severe Stopped Verified 04/04/20 14:52 heart Bee stings Allergy Severe Swelling & Uncoded 04/04/20 08:40 breathing problems, Anaphylactic shock PFSH NPU PFSH: Medical History Acne rosacea Bipolar disorder Controlled diabetes mellitus with hyperglycemia Current smoker DM neuropathy, painful Essential (primary) hypertension History of alcohol abuse daily use of hard liquor History of coronary artery disease History of CVA (cerebrovascular accident) 2009 Right side weakness due to a bleed History of memory loss History of schizophrenia Mixed hyperlipidemia Psoriasis Seizure disorder Surgical History History of colonoscopy with polypectomy 2015 History of esophagogastroduodenoscopy (EGD) History of eye surgery History of heart artery stent Family History Other Dementia Diabetes Hypertension Lung disease Psychiatric illness Stroke Denies family history of Chronic kidney disease (CKD) Anesthesia complication Bleeding disorder Cancer Social History Smoking and tobacco status: current every day smoker cigarettes Packs smoked per day: 2.5 Years cigarettes smoked: 38 Second hand smoke exposure: Yes Smoking risk assessment/counseling performed?: Yes Alcohol intake: current Alcohol intake frequency: 0-2 Drinks per Day Alcohol type: hard liquor Desire information about alcohol rehabilitation?: No Counseling given: No Desire information about substance/drug rehabilitation?: No Counseling given: No Adopted: No Caregiver/support person: Yes Lives independently: No Household members: friend(s) and caregiver Housing: Manufactured/Mobile home Marital status: Number of children: 8 service: No Current occupational status: disabled Pets and animals: Yes History of recent travel: Yes Details: month an a half ago Out of state: Yes Current gender identity: Male Meds NPU Home Medications Medication Instructions Recorded Confirmed Last Taken Type paliperidone 9 mg tablet,extended 9 mg PO DAILY #30 tab 03/15/20 04/28/20 04/28/20 Rx release 24 hr paliperidone palmitate 234 mg/1.5 234 mg IM Q30D #1 ml 03/28/20 04/28/20 04/04/20 Rx mL intramuscular syringe carvedilol 6.25 mg tablet 6.25 mg PO DAILY #30 tab 03/29/20 04/28/20 04/28/20 Rx fenofibrate nanocrystallized 145 145 mg PO DAILY #30 tab 03/29/20 04/28/20 04/28/20 Rx mg tablet levetiracetam 1,000 mg tablet 1,000 mg PO BID #60 tab 03/29/20 04/28/20 04/28/20 Rx lisinopril 40 mg tablet 40 mg PO DAILY #30 tab 03/29/20 04/28/20 04/28/20 Rx metformin 500 mg tablet,extended 500 mg PO BID #60 tab 03/29/20 04/28/20 04/28/20 Rx release 24 hr metronidazole 0.75 % lotion 1 applic TOPICAL BID #59 ml 03/29/20 04/28/20 04/28/20 Rx citalopram 20 mg PO DAILY #30 tab 04/07/20 04/28/20 04/28/20 Rx folic acid 1 mg PO DAILY #30 tab 04/07/20 04/28/20 04/28/20 Rx topiramate 50 mg tablet 50 mg PO BID #60 tab 04/19/20 04/28/20 04/28/20 Rx aspirin 81 mg PO DAILY 04/28/20 04/28/20 04/28/20 History triamcinolone acetonide See Rx Instructions .ROUTE .COMPLEX 04/28/20 04/28/20 04/28/20 History vitamin B complex [B Complex] 1 tab PO DAILY 04/28/20 04/28/20 04/28/20 History Allergies Allergy/AdvReac Type Severity Reaction Status Date / Time clozapine [From Clozaril] AdvReac Severe Lowered Verified 04/28/20 09:06 his WBC he says divalproex sodium AdvReac Severe swelling Verified 04/28/20 09:06 [From Depakote] haloperidol [From Haldol] AdvReac Severe swelling Verified 04/28/20 09:06 nitroglycerin AdvReac Severe Stopped Verified 04/28/20 09:06 heart Bee stings Allergy Severe Swelling & Uncoded 04/28/20 09:06 breathing problems, Anaphylactic shock PFSH NPU PFSH: Medical History Acne rosacea Bipolar disorder Controlled diabetes mellitus with hyperglycemia Current smoker DM neuropathy, painful Essential (primary) hypertension History of alcohol abuse daily use of hard liquor History of coronary artery disease History of CVA (cerebrovascular accident) 2009 Right side weakness due to a bleed History of memory loss History of schizophrenia Mixed hyperlipidemia Psoriasis Seizure disorder Surgical History History of colonoscopy with polypectomy 2016 History of esophagogastroduodenoscopy (EGD) History of eye surgery History of heart artery stent Family History Other Dementia Diabetes Hypertension Lung disease Psychiatric illness Stroke Denies family history of Chronic kidney disease (CKD) Anesthesia complication Bleeding disorder Cancer Social History Smoking and tobacco status: current every day smoker cigarettes Packs smoked per day: 2.5 Years cigarettes smoked: 38 Second hand smoke exposure: Yes Smoking risk assessment/counseling performed?: Yes Alcohol intake: current Alcohol intake frequency: 0-2 Drinks per Day Alcohol type: hard liquor Desire information about alcohol rehabilitation?: No Counseling given: No Desire information about substance/drug rehabilitation?: No Counseling given: No Adopted: No Caregiver/support person: Yes Lives independently: No Household members: friend(s) and caregiver Housing: Manufactured/Mobile home Marital status: Number of children: 8 service: No Current occupational status: disabled Pets and animals: Yes History of recent travel: Yes Details: month an a half ago Out of state: Yes Current gender identity: Male Mental Status Exam MSE Comments: This is an obese white male with hospital scrubs on with limited eye contact and appearing disheveled/with poor grooming. No abnormal movements except for psychomotor retardation. Cooperative and in no acute distress. Spee ch was decreased rate and volume. Mood described as depressed, affect congruent. Thought process organized. Thought content: Patient endorsed suicidal thinking and homicidal ideation, there were no delusions reported or noted, he denied any auditory or visual hallucinations. Attention and concen tration appeared intact and memory was mostly reliable but none were formally tested. The alert and oriented x3. Insight and judgment are limited, impulse control is impaired, intellectual ability limited. Vitals/I&O/Wt Last Vital Signs Temp 97.9 F 04/29/20 06:00 Pulse 61 04/29/20 06:00 Resp 15 04/29/20 06:00 BP 78/48 04/29/20 06:00 Pulse Ox 96 04/29/20 06:00 Weight last 48 hrs Weight 90.718 kg Data NPU : 04/28/20 19:51 04/28/20 19:51 A&P Assessment and plan (1) Major depression, recurrent, chronic: Status: Chronic (2) Acne rosacea: Status: Chronic (3) Cerebrovascular accident (CVA): Status: Acute (4) Nicotine dependence, unspecified, uncomplicated: Status: Chronic (5) Alcohol use disorder, severe, dependence: Status: Chronic (6) Schizophrenia: Status: Acute Qualifiers: Schizophrenia type: unspecified Qualified Code(s): F20.9 - Schizophrenia, unspecified (7) Psoriasis: Status: Chronic (8) Seizure disorder: Status: Chronic Additional A&P Information This is a 44-year-old white male with a long history of mental health and addiction issues who presents reporting that he has been sober for 2 weeks and hoping to get his medications stabilized and consider some kind of long-term housing that might assist him in being more functional. 1. Continue current medications. We will consider making changes moving forward. 2. Continue every 15 minute checks for safety. 3. Encourage individual, group and milieu therapies. 4. Encourage sober living follow-up at the highest level of care to which he is willing to commit. Involuntary Hold Information 96 Hour Hold: 96 Hour Involuntary Admission: Yes 96 Hour Hold Ending Date: 05/04/20 96 Hour Hold Ending Time: 19:15 Attestations NPU Medical Necessity Statement*: And hospitalization is medically necessary and the clinically appropriate intervention at this time. We will monitor medications and make changes as indicated. He will be in the hospital for over 2 midnights. Likely length of stay 4-6 days. Coding Level of Care Code Acute Automotive Warranty Administrator for g Fwd Diagnoses Major depression, recurrent, chronic F33.9 Acne rosacea L71.9 Cerebrovascular accident (CVA) I63.9 Nicotine dependence, unspecified, uncomplicated F17.200 Alcohol use disorder, severe, dependence F10.20 Schizophrenia F20.9 Schizophrenia type: unspecified Psoriasis L40.9 Seizure disorder G40.909
[2020-04-29 13:36] VITALS: BP 118/68; PULSE 77; RESP 18; TEMP 37.1; O2SAT 95
[2020-04-29 20:47] LABS: Glucose Point of Care 107 mg/dL (70-110)
[2020-04-29] MEDS: trazodone 50 mg Tablet PO (21:41)
[2020-04-29] MEDS: hyDROXYzine 25 mg Capsule 50 MG PO (21:41)
[2020-04-29 22:00] VITALS: BP 129/88; PULSE 70; RESP 16; TEMP 36.6; O2SAT 97
[2020-04-30 06:00] VITALS: BP 89/56; PULSE 64; RESP 16; TEMP 36.6; O2SAT 95
[2020-04-30 07:24] LABS: Glucose Point of Care 112 mg/dL (70-110)
[2020-04-30] MEDS: paliperidone ER 3 mg Tablet 9 MG PO (08:19)
[2020-04-30] MEDS: levETIRAcetam 500 mg Tablet 1000 MG PO ×2 (08:19→21:25)
[2020-04-30] MEDS: b-complex-vitamin c Tablet 1 EACH PO (08:19)
[2020-04-30] MEDS: metformin XR 500 MG Tablet PO ×2 (08:19→21:25)
[2020-04-30] MEDS: lisinopril 20 mg Tablet 40 MG PO (08:19)
[2020-04-30] MEDS: carvedilol 6.25 mg Tablet PO (08:20)
[2020-04-30] MEDS: topiramate 25 mg Tablet 50 MG PO ×2 (08:20→21:24)
[2020-04-30] MEDS: folic acid 1 mg Tablet PO (08:20)
[2020-04-30] MEDS: fenofibrate 145 mg Tablet PO (08:20)
[2020-04-30] MEDS: aspirin 81 mg EC Tablet PO (08:20)
[2020-04-30] MEDS: citalopram 20 mg Tablet PO (08:20)
[2020-04-30 13:31] VITALS: BP 113/79; PULSE 79; RESP 18; TEMP 36.9
--- NOTE | 2020-04-30 17:11 | PM.NPN ---
Subjective NPU Subjective: Interval history: Reinaldo presents today reporting that he still feeling quite depressed. He reports he has been on some of his medications for a while now. We discussed the risks, benefits and alternatives of increasing his Celexa and he understood and agreed to proceed as is documented in this note. Mental Status Exam MSE Comments: This is an obese white male with hospital scrubs on with limited eye contact and appearing disheveled/with poor grooming. No abnormal movements except for psychomotor retardation. Cooperative and in mild distress. Speech was decreased rate and volume. Mood described as depressed, affect congruent. Thought process organized. Thought content: Patient endorsed suicidal thinking and homicidal ideation, there were no delusions reported or noted, he denied any auditory or visual hallucinations. Attention and concentration appeared intact and memory was mostly reliable but none were formally tested. The alert and oriented x3. Insight and judgment are limited, impulse control is impaired, intellectual ability limited. Vitals/I&O/Wt Last Vital Signs Temp 98.4 F 04/30/20 21:00 Pulse 56 L 04/30/20 21:00 Resp 14 04/30/20 21:00 BP 99/62 04/30/20 21:00 Pulse Ox 96 04/30/20 21:00 Data NPU : 04/28/20 19:51 04/28/20 19:51 A&P Additional A&P Information (1) Major depression, recurrent, chronic: (2) Acne rosacea: (3) Cerebrovascular accident (CVA): (4) Nicotine dependence, unspecified, uncomplicated: (5) Alcohol use disorder, severe, dependence: (6) Schizophrenia: (7) Psoriasis: (8) Seizure disorder: This is a 44-year-old white male with a long history of mental health and addiction issues who presents reporting that he has been sober for 2 weeks and hoping to get his medications stabilized and consider some kind of long-term housing that might assist him in being more functional. 1. Continue current medications. Increase Celexa to 40 mg p.o. every morning in the morning. 2. Continue every 15 minute checks for safety. 3. Encourage individual, group and milieu therapies. 4. Encourage sober living follow-up at the highest level of care to which he is willing to commit. Involuntary Hold Information 96 Hour Hold: 96 Hour Involuntary Admission: Yes 96 Hour Hold Ending Date: 05/04/20 96 Hour Hold Ending Time: 19:15 Attestations NPU Medical Necessity Statement*: And hospitalization is medically necessary and the clinically appropriate intervention at this time. We will monitor medications and make changes as indicated. Likely length of stay 3-5 days. Coding Level of Care Code Acute Conflict Resolution Professional for Carlos Armstrong
[2020-04-30 19:45] LABS: Glucose Point of Care 101 mg/dL (70-110)
[2020-04-30 21:00] VITALS: BP 99/62; PULSE 56; RESP 14; TEMP 36.9; O2SAT 96
[2020-05-01 06:00] VITALS: BP 96/66; PULSE 69; RESP 16; TEMP 36.6; O2SAT 94
[2020-05-01 06:53] LABS: Glucose Point of Care 95 mg/dL (70-110)
[2020-05-01] MEDS: paliperidone ER 3 mg Tablet 9 MG PO (08:38)
[2020-05-01] MEDS: metformin XR 500 MG Tablet PO ×2 (08:38→20:12)
[2020-05-01] MEDS: fenofibrate 145 mg Tablet PO (08:39)
[2020-05-01] MEDS: topiramate 25 mg Tablet 50 MG PO ×2 (08:39→20:12)
[2020-05-01] MEDS: levETIRAcetam 500 mg Tablet 1000 MG PO ×2 (08:39→20:13)
[2020-05-01] MEDS: lisinopril 20 mg Tablet 40 MG PO (08:39)
[2020-05-01] MEDS: b-complex-vitamin c Tablet 1 EACH PO (08:39)
[2020-05-01] MEDS: folic acid 1 mg Tablet PO (08:39)
[2020-05-01] MEDS: aspirin 81 mg EC Tablet PO (08:39)
[2020-05-01] MEDS: citalopram 20 mg Tablet 40 MG PO (08:39)
[2020-05-01] MEDS: carvedilol 6.25 mg Tablet PO (08:39)
[2020-05-01 13:43] VITALS: BP 119/81; PULSE 68; RESP 18; TEMP 36.8; O2SAT 95
--- NOTE | 2020-05-01 13:59 | PM.NPN ---
Subjective NPU Subjective: Interval history: Reinaldo presents today continuing to endorse depression. He did get his dose of 40 mg of Celexa this morning and denied any side effects of that medication. He reports that he feels like maybe his Invega injection is kicking in. We discussed the risks, benefits and alternatives of increasing his oral Invega to 12 mg, and he understood and agreed to proceed as is documented in his note. He continues to eat okay and sleep too much. Mental Status Exam MSE Comments: This is an obese white male with hospital scrubs on with limited eye contact and appearing disheveled/with poor grooming. No abnormal movements except for psychomotor retardation. Cooperative and in mild distress. Speech was decreased rate and volume. Mood described as depressed, but may be a little better, affect congruent. Thought process organized. Thought content: Patient endorsed suicidal thinking and homicidal ideation, but a little less prominent there were no delusions reported or noted, he denied any auditory or visual hallucinations. Attention and concentration appeared intact and memory was mostly reliable but none were formally tested. The alert and oriented x3. Insight and judgment are limited, impulse control is impaired, intellectual ability limited. Vitals/I&O/Wt Last Vital Signs Temp 98.9 F 05/01/20 06:00 Pulse 69 05/01/20 06:00 Resp 16 05/01/20 06:00 BP 96/66 05/01/20 06:00 Pulse Ox 94 05/01/20 06:00 Weight last 48 hrs Weight 90.718 kg Data NPU : 04/28/20 19:51 04/28/20 19:51 A&P Additional A&P Information (1) Major depression, recurrent, chronic: (2) Acne rosacea: (3) Cerebrovascular accident (CVA): (4) Nicotine dependence, unspecified, uncomplicated: (5) Alcohol use disorder, severe, dependence: (6) Schizophrenia: (7) Psoriasis: (8) Seizure disorder: This is a 44-year-old white male with a long history of mental health and addiction issues who presents reporting that he has been sober for 2 weeks and hoping to get his medications stabilized and consider some kind of long-term housing that might assist him in being more functional. 1. Continue current medications. Increase Invega oral dose to 12 mg p.o. every morning in the morning with meals. 2. Continue every 15 minute checks for safety. 3. Encourage individual, group and milieu therapies. 4. Encourage sober living follow-up at the highest level of care to which he is willing to commit. Involuntary Hold Information 96 Hour Hold: 96 Hour Involuntary Admission: Yes 96 Hour Hold Ending Date: 05/04/20 96 Hour Hold Ending Time: 19:15 Attestations NPU Medical Necessity Statement*: Inpatient hospitalization is medically necessary and the clinically appropriate intervention at this time. We will monitor medications and make changes as indicated. Likely length of stay 2-4 days. Coding Level of Care Code Acute Corporate Health Consultant for Carlos Armstrong
[2020-05-01 19:56] VITALS: BP 94/62; PULSE 58; RESP 16; TEMP 36.6; O2SAT 95
[2020-05-01] MEDS: hyDROXYzine 25 mg Capsule 50 MG PO (20:15)
[2020-05-02 06:00] VITALS: BP 108/72; PULSE 63; RESP 16; TEMP 37.1; O2SAT 92
[2020-05-02 06:11] LABS: Glucose Point of Care 90 mg/dL (70-110)
[2020-05-02] MEDS: folic acid 1 mg Tablet PO (08:32)
[2020-05-02] MEDS: aspirin 81 mg EC Tablet PO (08:32)
[2020-05-02] MEDS: citalopram 20 mg Tablet 40 MG PO (08:32)
[2020-05-02] MEDS: paliperidone ER 6 mg Tablet 12 MG PO (08:32)
[2020-05-02] MEDS: lisinopril 20 mg Tablet 40 MG PO (08:33)
[2020-05-02] MEDS: topiramate 25 mg Tablet 50 MG PO ×2 (08:33→19:38)
[2020-05-02] MEDS: levETIRAcetam 500 mg Tablet 1000 MG PO ×2 (08:33→19:38)
[2020-05-02] MEDS: metformin XR 500 MG Tablet PO ×2 (08:33→16:48)
[2020-05-02] MEDS: b-complex-vitamin c Tablet 1 EACH PO (08:33)
[2020-05-02] MEDS: carvedilol 6.25 mg Tablet PO (08:34)
[2020-05-02] MEDS: fenofibrate 145 mg Tablet PO (08:37)
[2020-05-02 14:00] VITALS: BP 93/60; PULSE 54; RESP 18; TEMP 36.8; O2SAT 94
[2020-05-02 19:28] LABS: Glucose Point of Care 103 mg/dL (70-110)
[2020-05-02] MEDS: diazePAM 5 mg Tablet PO (19:38)
[2020-05-02] MEDS: doxepin 50 mg Capsule 100 MG PO (19:38)
[2020-05-02 19:39] VITALS: BP 91/58; PULSE 58; RESP 14; TEMP 36.7; O2SAT 94
[2020-05-03 06:00] VITALS: BP 97/65; PULSE 68; RESP 18; TEMP 36.8; O2SAT 95
[2020-05-03 06:38] LABS: Glucose Point of Care 99 mg/dL (70-110)
--- NOTE | 2020-05-03 08:16 | PM.NPN ---
Subjective NPU Subjective: Interval history: This interview was conducted under restrictions necessitated by the Covid pandemic. The interview was performed via FaceTime with the patient utilizing a hand-help iPad. Reinaldo endorses the symptoms of depression. He also endorses feelings of despondency, frustration, and hopelessness over his lack of response to medication treatment. He confirmed that he had been sober for the week prior to admission. he is hopeful that a change in placement will enable to forge a new path. He stated that the truncal rocking that he is doing ahs been going on for some time; he says that it calms him but cannot be more clear. Mental Status Exam MSE Comments: This is an obese white male with hospital scrubs on with limited eye contact and appearing disheveled/with poor grooming. Patient has been observed by staff and this physician to exhibit tardive-like truncal rocking. Unable to perform AIMS due to this being a FACETIME interview. Cooperative and in mild distress. Speech was decreased rate and volume. Mood described as depressed, affect congruent. Thought process organized. Thought content: Patient endorsed suicidal thinking and homicidal ideation, but a little less prominent there were no delusions reported or noted, he denied any auditory or visual hallucinations. Attention and concentration appeared intact and memory was mostly reliable but none were formally tested. The alert and oriented x3. Insight and judgment are limited, impulse control is impaired, intellectual ability limited. Cognition: Patient Appearance: Appropriate Level of Consciousness: Awake, Alert, Follows Commands and Restless Patient Cognition Impaired: No Ability to Follow Directions: Good Patient Orientation (long list): Person, Place, Time, Name, Age, Birthday, Day of Month, Day of Week, Month, Time of Day and Year Comprehension Ability: No Impairment Hallucination Type: None Delusion Description: Not Present Thought Process: Appropriate Affect: Affect Description: Appropriate and Calm Behavior: Patient Behavior: Appropriate and Cooperative Speech Pattern: Appropriate and Clear Vitals/I&O/Wt Last Vital Signs Temp 98.2 F 05/03/20 06:00 Pulse 68 05/03/20 06:00 Resp 18 05/03/20 06:00 BP 97/65 05/03/20 06:00 Pulse Ox 95 05/03/20 06:00 Data NPU : 04/28/20 19:51 04/28/20 19:51 A&P Assessment and plan (1) Major depression, recurrent, chronic: Status: Chronic (2) Acne rosacea: Status: Chronic (3) Cerebrovascular accident (CVA): Status: Acute (4) Nicotine dependence, unspecified, uncomplicated: Status: Chronic (5) Alcohol use disorder, severe, dependence: Status: Chronic (6) Schizophrenia: Status: Acute Qualifiers: Schizophrenia type: unspecified Qualified Code(s): F20.9 - Schizophrenia, unspecified (7) Psoriasis: Status: Chronic (8) Seizure disorder: Status: Chronic Additional A&P Information (1) Major depression, recurrent, chronic: (2) Acne rosacea: (3) Cerebrovascular accident (CVA): (4) Nicotine dependence, unspecified, uncomplicated: (5) Alcohol use disorder, severe, dependence: (6) Schizophrenia: (7) Psoriasis: (8) Seizure disorder: This is a 44-year-old white male with a long history of mental health and addiction issues who presents reporting that he has been sober for 2 weeks and hoping to get his medications stabilized and consider some kind of long-term housing that might assist him in being more functional. 1. Hopsital day #4: Continue current medications. Maintain citalopram at 40 mg. Decrease Invega back to 9 mg with consideration of decrease over time if he remains sober and he continues to demonstrate tardive movements. Sleep was reported by him to be a severe problem. Pt will be started on Doxepin 100 mg plus diazepam 5 mg at bedtime as these have been effecdtive for him in the past. these will likely be titrated over time. It is believed that a change in living arragements will be critical in changing his path to one of sobriety and reduction in encironmental stressors and thus return him to a previous level of mental health stability. 2. Continue every 15 minute checks for safety. 3. Encourage individual, group and milieu therapies. 4. Encourage sober living follow-up at the highest level of care to which he is willing to commit. Involuntary Hold Information 96 Hour Hold: 96 Hour Involuntary Admission: Yes 96 Hour Hold Ending Date: 05/04/20 96 Hour Hold Ending Time: 19:15 Attestations NPU Medical Necessity Statement*: Patient will remain in the hospital another 1-2 nights to assess tolerance of medication changes. 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
[2020-05-03] MEDS: paliperidone ER 3 mg Tablet 9 MG PO (08:25)
[2020-05-03] MEDS: carvedilol 6.25 mg Tablet PO (08:26)
[2020-05-03] MEDS: metformin XR 500 MG Tablet PO ×2 (08:26→18:37)
[2020-05-03] MEDS: topiramate 25 mg Tablet 50 MG PO ×2 (08:26→20:20)
[2020-05-03] MEDS: levETIRAcetam 500 mg Tablet 1000 MG PO ×2 (08:26→20:20)
[2020-05-03] MEDS: lisinopril 20 mg Tablet 40 MG PO (08:26)
[2020-05-03] MEDS: fenofibrate 145 mg Tablet PO (08:26)
[2020-05-03] MEDS: folic acid 1 mg Tablet PO (08:26)
[2020-05-03] MEDS: b-complex-vitamin c Tablet 1 EACH PO (08:26)
[2020-05-03] MEDS: citalopram 20 mg Tablet 40 MG PO (08:26)
[2020-05-03] MEDS: aspirin 81 mg EC Tablet PO (08:26)
--- NOTE | 2020-05-03 11:58 | P.PN_ITS ---
Subjective NPU Subjective: Interval history: I am angry, I am frustrated, I am severely depressed, I do not want to go on like this it. I cannot sit still. When I get up from here, I do nothing but pace in the halls. Mental Status Exam MSE Comments: Mental Status Exam: The patient is encountered in his room sitting crosslegged on the floor automatic rocking back and forth continuously the same that he was doing yesterday. Eye contact is poor. He is believed to be a reliable informant as his statements today are consistent with those that he made yesterday. Appearance: hygiene is fair; no gross neurological deficits., gait is unremarkable; AIMS=3; no tremors, mild cogwheel rigidity Speech: Speech is of normal rate and rhythm and easily understood. Thought processes: Thought processes are abstract. Judgment is not adequate for safety. Associations: intact Psychotic processes: There is no indication of guarding or paranoia. There is no attention to the internal stimuli. He reports persistent auditory hallucinations that are telling him to kill his ex-. Cognitively, he unde rstands that that is not a solution to his problems but he says I been in during this for 9 years. Judgment: Insight is fair. Problem solving skills are adequate for safety. Orientation: The patient is oriented to person, place time and situation. Memory: no deficits noted in immediate, intermediate, or remote spheres. Attention: The patient is alert and interpersonally engaged. Language: Verbalizations are coherent. Fund of knowledge: Fund of knowledge is adequate. Affect/Mood: Affect is consistent with a depressed mood. pt denies suicidal ideation Affective range is appropriate. Psychosis: perception unimpaired except through cognitive distortion; reality testing intact. Cognition: Patient Appearance: Appropriate Level of Consciousness: Awake, Alert, Follows Commands and Restless Patient Cognition Impaired: No Ability to Follow Directions: Good Patient Orientation (long list): Person, Place, Time, Name, Age, Birthday, Day of Month, Day of Week, Month, Time of Day and Year Comprehension Ability: No Impairment Hallucination Type: None Delusion Description: Not Present Thought Process: Appropriate Affect: Affect Description: Flat Behavior: Patient Behavior: Withdrawn Speech Pattern: Clear Vitals/I&O/Wt Last Vital Signs Temp 98.2 F 05/03/20 06:00 Pulse 68 05/03/20 06:00 Resp 18 05/03/20 06:00 BP 97/65 05/03/20 06:00 Pulse Ox 95 05/03/20 06:00 05/02/20 05/03/20 05/03/20 22:59 06:59 14:59 Intake Total 120 / 120 Balance 120 / 120 Data NPU : 04/28/20 19:51 04/28/20 19:51 A&P Assessment and plan (1) Major depression, recurrent, chronic: Status: Chronic (2) Acne rosacea: Status: Chronic (3) Cerebrovascular accident (CVA): Status: Acute (4) Nicotine dependence, unspecified, uncomplicated: Status: Chronic (5) Alcohol use disorder, severe, dependence: Status: Chronic (6) Schizophrenia: Status: Acute Qualifiers: Schizophrenia type: unspecified Qualified Code(s): F20.9 - Schizop hrenia, unspecified (7) Psoriasis: Status: Chronic (8) Seizure disorder: Status: Chronic (9) Acute neuroleptic-induced akathisia: Status: Acute Additional A&P Information (1) Major depression, recurrent, chronic: (2) Acne rosacea: (3) Cerebrovascular accident (CVA): (4) Nicotine dependence, unspecified, uncomplicated: (5) Alcohol use disorder, severe, dependence: (6) Schizophrenia: (7) Psoriasis: (8) Seizure disorder: This is a 44-year-old white male with a long history of mental health and addiction issues who presents reporting that he has been sober for 2 weeks and hoping to get his medications stabilized and consider some kind of long-term housing that might assist him in being more functional. 1. Hopsital day #4: Continue current medications. Maintain citalopram at 40 mg. Decrease Invega back to 9 mg with consideration of decrease over time if he remains sober and he continues to demonstrate tardive movements. Sleep was reported by him to be a severe problem. Pt will be started on Doxepin 100 mg plus diazepam 5 mg at bedtime as these have been effecdtive for him in the past. these will likely be titrated over time. It is believed that a change in living arragements will be critical in changing his path to one of sobriety and reduction in encironmental stressors and thus return him to a previous level of mental health stability. Hospital day #5: Patient presents as though he is experiencing acute severe akathisia. This would be consistent with his complaint that his symptoms go up and down around at the time of the Invega Sustenna injection. He responded well to the doxepin and diazepam last night for sleep. Focus at this point is going to be to try and get his akathisia under control so he is able to think more clearly and assist in his discharge planning in a more supportive environment. We will give him a 1 time dose of diazepam 5 mg this afternoon and replace his carvedilol with propranolol 10 mg 3 times daily. His baseline dose last time he was on this medication was 20 mg 3 times daily. We will wait and observe his response to this dosage before increasing. 2. Continue every 15 minute checks for safety. 3. Encourage individual, group and milieu therapies. 4. Encourage sober living follow-up at the highest level of care to which he is willing to commit. Involuntary Hold Information 96 Hour Hold: 96 Hour Involuntary Admission: Yes 96 Hour Hold Ending Date: 05/04/20 96 Hour Hold Ending Time: 19:15 Attestations NPU Medical Necessity Statement*: Patient will remain in the hospital another 2-4 nights for assessment of medication efficacy and tolerability. Coding Level of Care Code Acute Talent Acquisition Program Manager for Carlos Armstrong Diagnoses Major depression, recurrent, chronic F33.9 Acne rosacea L71.9 Cerebrovascular accident (CVA) I63.9 Nicotine dependence, unspecified, uncomplicated F17.200 Alcohol use disorder, severe, dependence F10.20 Schizophrenia F20.9 Schizophrenia type: unspecified Psoriasis L40.9 Seizure disorder G40.909 Acute neuroleptic-induced akathisia G25.71; T43.505A
[2020-05-03] MEDS: diazePAM 5 mg Tablet PO ×2 (12:14→20:20)
[2020-05-03 14:00] VITALS: BP 93/64; PULSE 76; RESP 20; TEMP 37.1; O2SAT 97
--- NOTE | 2020-05-03 14:48 | PC.RESP ---
Smoking Cessation information sent to patient.
[2020-05-03] MEDS: doxepin 50 mg Capsule 100 MG PO (20:20)
[2020-05-03] MEDS: propranolol 20 mg Tablet 10 MG PO (20:21)
[2020-05-03 22:00] VITALS: BP 93/60; PULSE 52; RESP 16; TEMP 36.9; O2SAT 94
[2020-05-04] MEDS: hyDROXYzine 25 mg Capsule 50 MG PO (00:22)
[2020-05-04] MEDS: OLANZapine 5 mg ODT PO (00:22)
--- NOTE | 2020-05-04 00:22 | PC.NURSE ---
Addendum entered by Shayy Myers RN 05/04/20 01:04: PT IS STILL ANXIOUS AND EXHIBITING SIGNS OF EPS WITH LEG CRAMPS. Original Note: Visteril/zyprexa zydis Visteril 50mg po and 5mg Zyprexa zydis given for severe anxiety. Pt is sitting in the dark on the floor rocking and verbalized his anxiety is beyond a level of 10 on a 1-10 scale. Will continue to monitor patient for progress.
[2020-05-04] MEDS: benztropine 1 mg Tablet PO (01:03)
--- NOTE | 2020-05-04 01:03 | PC.NURSE ---
Addendum entered by Shayy Myers RN 05/04/20 01:55: Pt is in bed resting. He appears calm. No visible symptoms at this time. Original Note: COGENTIN 1MG COGENTIN PO GIVEN FOR LEG SPASMS/EPS. WILL CONTINUE TO MONITOR
[2020-05-04 05:28] VITALS: BP 104/71; PULSE 62; RESP 16; TEMP 36.9; O2SAT 96
--- NOTE | 2020-05-04 05:49 | PC.NURSE ---
Anxiety level Pt is in the floor, sitting cross legged, rocking in the dark in his room. He is appropriate with staff. When asked if what we can do to make him more comfortable his response is I rock like this to calm myself down. I am ok right now. Pt denies SI/HI and denies AH/VH at this time. When asked to rate his level of anxiety on a scale of 1-10 he rates it about a 6. He says this is his normal range but he has a hard time managing his anxiety all the time.
[2020-05-04 07:14] LABS: Glucose Point of Care 119 mg/dL (70-110)
[2020-05-04] MEDS: aspirin 81 mg EC Tablet PO (08:49)
[2020-05-04] MEDS: metformin XR 500 MG Tablet PO ×2 (08:49→17:20)
[2020-05-04] MEDS: citalopram 20 mg Tablet 40 MG PO (08:50)
[2020-05-04] MEDS: levETIRAcetam 500 mg Tablet 1000 MG PO ×2 (08:50→22:20)
[2020-05-04] MEDS: folic acid 1 mg Tablet PO (08:50)
[2020-05-04] MEDS: topiramate 25 mg Tablet 50 MG PO ×2 (08:50→22:22)
[2020-05-04] MEDS: lisinopril 20 mg Tablet 40 MG PO (08:50)
[2020-05-04] MEDS: propranolol 20 mg Tablet 10 MG PO ×3 (08:51→22:20)
[2020-05-04] MEDS: paliperidone ER 3 mg Tablet 9 MG PO (08:56)
--- NOTE | 2020-05-04 10:13 | P.PN_ITS ---
Subjective NPU Subjective: Interval history: Patient states that he slept again well last night. His auditory hallucinations are a level 4 on a1-10 scale. This is significantly reduced. Mental Status Exam MSE Comments: Mental Status Exam: The patient is encountered in the hallway; no truncal rocking witnessed. Eye contact is poor. He is believed to be a reliable informant as his statements today are consistent with those that he made yesterday. Appearance: hygiene is fair; no gross neurological deficits., gait is unremarkable; AIMS=0; no tremors, mild cogwheel rigidity Speech: Speech is of normal rate and rhythm and easily understood. Thought processes: Thought processes are abstract. Judgment is not adequate for safety. Associations: intact Psychotic processes: There is no indication of guarding or paranoia. There is no attention to the internal stimuli. He reports persistent auditory hallucinations that are a level 4 on a 1-10 scale. Judgment: Insight is fair. Problem solving skills are adequate for safety. Orientation: The patient is oriented to person, place time and situation. Memory: no deficits noted in immediate, intermediate, or remote spheres. Attention: The patient is alert and interpersonally engaged. Language: Verbalizations are coherent. Fund of knowledge: Fund of knowledge is adequate. Affect/Mood: Affect is consistent with a depressed mood. pt denies suicidal ideation Affective range is appropriate. Psychosis: perception unimpaired except through cognitive distortion; reality testing intact. Cognition: Patient Appearance: Appropriate Level of Consciousness: Awake, Alert, Follows Commands and Restless Patient Cognition Impaired: No Ability to Follow Directions: Good Patient Orientation (long list): Person, Place, Time, Name, Age, Birthday, Day of Month, Day of Week, Month, Time of Day and Year Comprehension Ability: No Impairment Hallucination Type: None Delusion Description: Not Present Thought Process: Appropriate Affect: Affect Description: Calm Behavior: Patient Behavior: Appropriate Speech Pattern: Clear Vitals/I&O/Wt Last Vital Signs Temp 98.4 F 05/04/20 05:28 Pulse 62 05/04/20 05:28 Resp 16 05/04/20 05:28 BP 104/71 05/04/20 05:28 Pulse Ox 96 05/04/20 05:28 05/03/20 05/04/20 05/04/20 22:59 06:59 14:59 Intake Total 240 / 600 240 / 240 Balance 240 / 600 240 / 240 Data NPU : 04/28/20 19:51 04/28/20 19:51 A&P Assessment and plan (1) Major depression, recurrent, chronic: Status: Chronic (2) Acne rosacea: Status: Chronic (3) Cerebrovascular accident (CVA): Status: Acute (4) Nicotine dependence, unspecified, uncomplicated: Status: Chronic (5) Alcohol use disorder, severe, dependence: Status: Chronic (6) Schizophrenia: Status: Acute Qualifiers: Schizophrenia type: unspecified Qualified Code(s): F20.9 - Schizophrenia, unspecified (7) Psoriasis: Status: Chronic (8) Seizure disorder: Status: Chronic (9) Acute neuroleptic-induced akathisia: Status: Acute Additional A&P Information (1) Major depression, recurrent, chronic: (2) Acne rosacea: (3) Cerebrovascular accident (CVA): (4) Nicotine dependence, unspecified, uncomplicated: (5) Alcohol use disorder, severe, dependence: (6) Schizophrenia: (7) Psoriasis: (8) Seizure disorder: This is a 44-year-old white male with a long history of mental health and addiction issues who presents reporting that he has been sober for 2 weeks and hoping to get his medications stabilized and consider some kind of long-term housing that might assist him in being more functional. 1. Hopsital day #4: Continue current medications. Maintain citalopram at 40 mg. Decrease Invega back to 9 mg with consideration of decrease over time if he remains sober and he continues to demonstrate tardive movements. Sleep was reported by him to be a severe problem. Pt will be started on Doxepin 100 mg plus diazepam 5 mg at bedtime as these have been effecdtive for him in the past. these will likely be titrated over time. It is believed that a change in living arragements will be critical in changing his path to one of sobriety and redu ction in encironmental stressors and thus return him to a previous level of mental health stability. Hospital day #5: Patient presents as though he is experiencing acute severe akathisia. This would be consistent with his complaint that his symptoms go up and down around at the time of the Invega Sustenna injection. He responded well to the doxepin and diazepam last night for sleep. Focus at this point is going to be to try and get his akathisia under control so he is able to think more clearly and assist in his discharge planning in a more supportive environment. We will give him a 1 time dose of diazepam 5 mg this afternoon and replace his carvedilol with propranolol 10 mg 3 times daily. His baseline dose last time he was on this medication was 20 mg 3 times daily. We will wait and observe his response to this dosage before increasing. Hospital day #5: Akathisia is improving with the addition of doxepin, diazepam, and switch from carvedilol to propranolol. Blood pressures are not significantly changed. Auditory hallucinations are reduced. However the patient was educated that this is early in the process and continued observation and titration are required as staff works on a change in his placement. 2. Continue every 15 minute checks for safety. 3. Encourage individual, group and milieu therapies. 4. Encourage sober living follow-up at the highest level of care to which he is willing to commit. Involuntary Hold Information 96 Hour Hold: 96 Hour Involuntary Admission: Yes 96 Hour Hold Ending Date: 05/04/20 96 Hour Hold Ending Time: 19:15 Attestations NPU Medical Necessity Statement*: Patient will remain in the hospital another 2-4 nights for assessment of medication efficacy and tolerability. Coding Level of Care Code Acute Grey Inspector for Carlos Armstrong Diagnoses Major depression, recurrent, chronic F33.9 Acne rosacea L71.9 Cerebrovascular accident (CVA) I63.9 Nicotine dependence, unspecified, uncomplicated F17.200 Alcohol use disorder, severe, dependence F10.20 Schizophrenia F20.9 Schizophrenia type: unspecified Psoriasis L40.9 Seizure disorder G40.909 Acute neuroleptic-induced akathisia G25.71; T43.505A
[2020-05-04 14:00] VITALS: BP 91/64; PULSE 95; RESP 18; TEMP 36.5; O2SAT 94
[2020-05-04 16:31] LABS: Glucose Point of Care 88 mg/dL (70-110)
[2020-05-04] MEDS: diazePAM 2 mg Tablet PO (17:20)
[2020-05-04 20:19] LABS: Glucose Point of Care 145 mg/dL (70-110)
[2020-05-04 20:37] VITALS: BP 85/58; PULSE 54; RESP 16; TEMP 36.6; O2SAT 93
[2020-05-04] MEDS: doxepin 50 mg Capsule 100 MG PO (22:21)
[2020-05-04] MEDS: diazePAM 5 mg Tablet PO (22:22)
[2020-05-05 06:00] VITALS: BP 110/78; PULSE 92; RESP 18; TEMP 36.5; O2SAT 96
[2020-05-05] MEDS: nicotine 21 mg Patch 1 PATCH TRANSDERMA (07:32)
[2020-05-05] MEDS: paliperidone ER 3 mg Tablet 9 MG PO (08:45)
[2020-05-05] MEDS: fenofibrate 145 mg Tablet PO (08:45)
[2020-05-05] MEDS: b-complex-vitamin c Tablet 1 EACH PO (08:45)
[2020-05-05] MEDS: lisinopril 20 mg Tablet 40 MG PO (08:45)
[2020-05-05] MEDS: propranolol 20 mg Tablet 10 MG PO ×2 (08:46→16:41)
[2020-05-05] MEDS: folic acid 1 mg Tablet PO (08:46)
[2020-05-05] MEDS: diazePAM 2 mg Tablet PO ×2 (08:46→16:42)
[2020-05-05] MEDS: metformin XR 500 MG Tablet PO ×2 (08:46→16:41)
[2020-05-05] MEDS: levETIRAcetam 500 mg Tablet 1000 MG PO ×2 (08:46→20:36)
[2020-05-05] MEDS: topiramate 25 mg Tablet 50 MG PO ×2 (08:46→20:36)
[2020-05-05] MEDS: aspirin 81 mg EC Tablet PO (08:46)
[2020-05-05] MEDS: citalopram 20 mg Tablet 40 MG PO (08:46)
--- NOTE | 2020-05-05 10:41 | P.PN_ITS ---
Subjective NPU Subjective: Interval history: Patient states that he slept again well last night. His auditory hallucinations are down to a whisper . However he continues to sit in a cross-leggged position rocking back and forth. HE complains of bordeom and there is nothing to do but sit here and think. Mental Status Exam MSE Comments: Mental Status Exam: The patient is encountered in his room so tting on the floor. HE is rocking back and forth.. Eye contact is poor. He is believed to be a reliable informant as his statements today are consistent with those that he made yesterday. Appearance: hygiene is fair; no gross neurological deficits., gait is unremarkable; AIMS=0; no tremors, mild cogwheel rigidity Speech: Speech is of normal rate and rhythm and easily understood. Thought processes: Thought processes are abstract. Judgment is not adequate for safety. Associations: intact Psychotic processes: There is no indication of guarding or paranoia. There is no attention to the internal stimuli. He reports persistent auditory hallucinations that are a level 4 on a 1-10 scale. Judgment: Insight is fair. Problem solving skills are adequate for safety. Orientation: The patient is oriented to person, place time and situation. Memory: no deficits noted in immediate, intermediate, or remote spheres. Attention: The patient is alert and interpersonally engaged. Language: Verbalizations are coherent. Fund of knowledge: Fund of knowledge is adequate. Affect/Mood: Affect is consistent with a depressed mood. pt denies suicidal ideation Affective range is appropriate. Psychosis: perception unimpaired except through cognitive distortion; reality testing intact. Cognition: Patient Appearance: Appropriate Level of Consciousness: Awake, Alert, Follows Commands and Restless Patient Cognition Impaired: No Ability to Follow Directions: Good Patient Orientation (long list): Person, Place, Time, Name, Age, Birthday, Day of Month, Day of Week, Month, Time of Day and Year Comprehension Ability: No Impairment Hallucination Type: None Delusion Description: Not Present Thought Process: Appropriate Affect: Affect Description: Calm Behavior: Patient Behavior: Cooperative Speech Pattern: Clear Vitals/I&O/Wt Last Vital Signs Temp 97.7 F 05/05/20 06:00 Pulse 92 05/05/20 06:00 Resp 18 05/05/20 06:00 BP 110/78 05/05/20 06:00 Pulse Ox 96 05/05/20 06:00 05/04/20 05/05/20 05/05/20 22:59 06:59 14:59 Intake Total 240 / 600 Balance 240 / 600 Data NPU : 04/28/20 19:51 04/28/20 19:51 A&P Assessment and plan (1) Major depression, recurrent, chronic: Status: Chronic (2) Acne rosacea: Status: Chronic (3) Cerebrovascular accident (CVA): Status: Acute (4) Nicotine dependence, unspecified, uncomplicated: Status: Chronic (5) Alcohol use disorder, severe, dependence: Status: Chronic (6) Schizophrenia: Status: Acute Qualifiers: Schizophrenia type: unspecified Qualified Code(s): F20.9 - Schizophr enia, unspecified (7) Psoriasis: Status: Chronic (8) Seizure disorder: Status: Chronic (9) Acute neuroleptic-induced akathisia: Status: Acute Additional A&P Information (1) Major depression, recurrent, chronic: (2) Acne rosacea: (3) Cerebrovascular accident (CVA): (4) Nicotine dependence, unspecified, uncomplicated: (5) Alcohol use disorder, severe, dependence: (6) Schizophrenia: (7) Psoriasis: (8) Seizure disorder: This is a 44-year-old white male with a long history of mental health and addiction issues who presents reporting that he has been sober for 2 weeks and hoping to get his medications stabilized and consider some kind of long-term housing that might assist him in being more functional. 1. Hopsital day #4: Continue current medications. Maintain citalopram at 40 mg. Decrease Invega back to 9 mg with consideration of decrease over time if he remains sober and he continues to demonstrate tardive movements. Sleep was reported by him to be a severe problem. Pt will be started on Doxepin 100 mg plus diazepam 5 mg at bedtime as these have been effecdtive for him in the past. these will likely be titrated over time. It is believed that a change in living arragements will be critical in changing his path to one of sobriety and reduction in encironmental stressors and thus return him to a previous level of mental health stability. Hospital day #5: Patient presents as though he is experiencing acute severe ak athisia. This would be consistent with his complaint that his symptoms go up and down around at the time of the Invega Sustenna injection. He responded well to the doxepin and diazepam last night for sleep. Focus at this point is going to be to try and get his akathisia under control so he is able to think more clearly and assist in his discharge planning in a more supportive environment. We will give him a 1 time dose of diazepam 5 mg this afternoon and replace his carvedilol with propranolol 10 mg 3 times daily. His baseline dose last time he was on this medication was 20 mg 3 times daily. We will wait and observe his response to this dosage before increasing. Hospital day #5: Akathisia is improving with the addition of doxepin, diazepam, and switch from carvedilol to propranolol. Blood pressures are not significantly changed. Auditory hallucinations are reduced. However the p atient was educated that this is early in the process and continued observation and titration are required as staff works on a change in his placement. #6 Patient is day #4 of increased dose of Celexa. His has been going a little low in the evening after switching to propranolol. He denied the presence of dizziness or lightheadedness. He reports the auditory hallucinations are at a whisper. He is awaiting placement and is bored in the meantime. Plan: Decrease propranolol to 10 mg twice daily. 2. Continue every 15 minute checks for safety. 3. Encourage individual, group and milieu therapies. 4. Encourage sober living follow-up at the highest level of care to which he is willing to commit. Involuntary Hold Information 96 Hour Hold: 96 Hour Involuntary Admission: Yes 96 Hour Hold Ending Date: 05/04/20 96 Hour Hold Ending Time: 19:15 Attestations NPU Medical Necessity Statement*: Patient will remain in the hospital another 3-5 nights until placement can be acquired. Coding Level of Care Code Acute Director Summer Sessions for [facility] Diagnoses Major depression, recurrent, chronic F33.9 Acne rosacea L71.9 Cerebrovascular accident (CVA) I63.9 Nicotine dependence, unspecified, uncomplicated F17.200 Alcohol use disorder, severe, dependence F10.20 Schizophrenia F20.9 Schizophrenia type: unspecified Psoriasis L40.9 Seizure disorder G40.909 Acute neuroleptic-induced akathisia G25.71; T43.505A
[2020-05-05 14:00] VITALS: BP 110/73; PULSE 72; RESP 18; TEMP 36.2; O2SAT 97
[2020-05-05 19:36] LABS: Glucose Point of Care 116 mg/dL (70-110)
[2020-05-05] MEDS: diazePAM 5 mg Tablet PO (20:35)
[2020-05-05] MEDS: doxepin 50 mg Capsule 100 MG PO (20:36)
[2020-05-05 22:00] VITALS: BP 92/49; PULSE 64; RESP 15; TEMP 36.7; O2SAT 97
[2020-05-06 06:00] VITALS: BP 106/69; PULSE 76; RESP 17; TEMP 36.6; O2SAT 96
[2020-05-06] MEDS: paliperidone ER 3 mg Tablet 9 MG PO (08:41)
[2020-05-06] MEDS: topiramate 25 mg Tablet 50 MG PO ×2 (08:42→20:30)
[2020-05-06] MEDS: citalopram 20 mg Tablet 40 MG PO (08:42)
[2020-05-06] MEDS: b-complex-vitamin c Tablet 1 EACH PO (08:42)
[2020-05-06] MEDS: fenofibrate 145 mg Tablet PO (08:42)
[2020-05-06] MEDS: propranolol 20 mg Tablet 10 MG PO ×2 (08:42→17:05)
[2020-05-06] MEDS: metformin XR 500 MG Tablet PO ×2 (08:42→17:05)
[2020-05-06] MEDS: lisinopril 20 mg Tablet 40 MG PO (08:42)
[2020-05-06] MEDS: aspirin 81 mg EC Tablet PO (08:43)
[2020-05-06] MEDS: levETIRAcetam 500 mg Tablet 1000 MG PO ×2 (08:43→20:30)
[2020-05-06] MEDS: diazePAM 2 mg Tablet PO ×2 (08:43→17:05)
[2020-05-06] MEDS: folic acid 1 mg Tablet PO (08:43)
[2020-05-06] MEDS: nicotine 21 mg Patch 1 PATCH TRANSDERMA (09:15)
--- NOTE | 2020-05-06 12:28 | P.PN_ITS ---
Mental Status Exam MSE Comments: Mental Status Exam: The patient is interviewed in the office. Eye contact is poor. He is believed to be a reliable informant as his statements today are consistent with those that he made yesterday. Appearance: hygiene is fair; no gross neurological deficits., gait is unremarkable; AIMS=0; no tremors, no cogwheel rigidity Speech: Speech is of normal rate and rhythm and easily understood. Thought processes: Thought processes are abstract. Judgment is not adequate for safety. Associations: intact Psychotic processes: There is no indication of guarding or paranoia. There is no attention to the internal stimuli. He reports persistent auditory hallucinations that are a level 4 on a 1-10 scale. Judgment: Insight is fair. Problem solving skills are adequate for safety. Orientation: The patient is oriented to person, place time and situation. Memory: no deficits noted in immediate, intermediate, or remote spheres. Attention: The patient is alert and interpersonally engaged. Language: Verbalizations are coherent. Fund of knowledge: Fund of knowledge is adequate. Affect/Mood: Affect is consistent with a mildly depressed mood. pt denies suicidal ideation Affective range is improved Psychosis: perception unimpaired except through cognitive distortion; reality testing intact. Cognition: Patient Appearance: Disheveled/Poor Hygiene Level of Consciousness: Awake, Alert, Follows Commands and Restless Patient Cognition Impaired: No Ability to Follow Directions: Good Patient Orientation (long list): Person, Place, Time, Name, Age, Birthday, Day of Month, Day of Week, Month, Time of Day and Year Comprehension Ability: No Impairment Hallucination Type: None Delusion Description: Not Present Thought Process: Loose Associations Affect: Affect Description: Appropriate, Calm and Flat Behavior: Patient Behavior: Cooperative Speech Pattern: Appropriate and Clear Vitals/I&O/Wt Last Vital Signs Temp 97.9 F 05/06/20 06:00 Pulse 76 05/06/20 06:00 Resp 17 05/06/20 06:00 BP 106/69 05/06/20 06:00 Pulse Ox 96 05/06/20 06:00 Data NPU : 04/28/20 19:51 04/28/20 19:51 A&P Assessment and plan (1) Major depression, recurrent, chronic: Status: Chronic (2) Acne rosacea: Status: Chronic (3) Cerebrovascular accident (CVA): Status: Acute (4) Nicotine dependence, unspecified, uncomplicated: Status: Chronic (5) Alcohol use disorder, severe, dependence: Status: Chronic (6) Schizophrenia: Status: Acute Qualifiers: Schizophrenia type: unspecified Qualified Code(s): F20.9 - Schizophrenia, unspecified (7) Psoriasis: Status: Chronic (8) Seizure disorder: Status: Chronic (9) Acute neuroleptic-induced akathisia: Status: Acute Additional A&P Information (1) Major depression, recurrent, chronic: (2) Acne rosacea: (3) Cerebrovascular accident (CVA): (4) Nicotine dependence, unspecified, uncomplicated: (5) Alcohol use disorder, severe, dependence: (6) Schizophrenia: (7) Psoriasis: (8) Seizure disorder: This is a 44-year-old white male with a long history of mental health and a ddiction issues who presents reporting that he has been sober for 2 weeks and hoping to get his medications stabilized and consider some kind of long-term housing that might assist him in being more functional. 1. Hopsital day #4: Continue current medications. Maintain citalopram at 40 mg. Decrease Invega back to 9 mg with consideration of decrease over time if he remains sober and he continues to demonstrate tardive movements. Sleep was reported by him to be a severe problem. Pt will be started on Doxepin 100 mg plus diazepam 5 mg at bedtime as these have been effecdtive for him in the past. these will likely be titrated over time. It is believed that a change in living arragements will be critical in changing his path to one of sobriety and reduction in encironmental stressors and thus return him to a previous level of mental health stability. Hospital day #5: Patient presents as though he is experiencing acute severe akathisia. This would be consistent with his complaint that his symptoms go up and down around at the time of the Invega Sustenna injection. He responded well to the doxepin and diazepam last night for sleep. Focus at this point is going to be to try and get his akathisia under control so he is able to think more clearly and assist in his discharge planning in a more supportive environment. We will give him a 1 time dose of diazepam 5 mg this afternoon and replace his carvedilol with propranolol 10 mg 3 times daily. His baseline dose last time he was on this medication was 20 mg 3 times daily. We will wait and observe his response to this dosage before increasing. Hospital day #5: Akathisia is improving with the addition of doxepin, diazepam, and switch from carvedilol to propranolol. Blood pressures are not significantly changed. Auditory hallucinations are reduced. However the patient was educated that this is early in the process and continued observation and titration are required as staff works on a change in his placement. #6 Patient is day #4 of increased dose of Celexa. His has been going a little low in the evening after switching to propranolol. He denied the presence of dizziness or lightheadedness. He reports the auditory hallucinations are at a whisper. He is awaiting placement and is bored in the meantime. Plan: Decrease propranolol to 10 mg twice daily. Hospital day #7: Patient is doing well today. This is normally the point at which he goes home. However we discussed staff concerns about breaking the cycl e of going home and doing poorly and then getting placed on higher dose of antipsychotic medication, doing even more poorly and they are winding up back here. All agree that a change in placement is needed. His greatest barrier is boredom over the next 72 hours trying to get through this holiday weekend with nothing to do on the unit. Problem solving and observations were provided and he will try to enlist those coping skills. 2. Continue every 15 minute checks for safety. 3. Encourage individual, group and milieu therapies. 4. Encourage sober living follow-up at the highest level of care to which he is willing to commit. Involuntary Hold Information 96 Hour Hold: 96 Hour Involuntary Admission: Yes 96 Hour Hold Ending Date: 05/04/20 96 Hour Hold Ending Time: 19:15 Attestations NPU Medical Necessity Statement*: Patient will remain in the hospital another 3-4 nights until placement can be found. 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
[2020-05-06 13:22] VITALS: BP 102/69; PULSE 82; RESP 20; TEMP 36.2; O2SAT 96
[2020-05-06] MEDS: doxepin 50 mg Capsule 100 MG PO (20:29)
[2020-05-06] MEDS: diazePAM 5 mg Tablet PO (20:30)
[2020-05-06 20:52] LABS: Glucose Point of Care 125 mg/dL (70-110)
[2020-05-06 22:00] VITALS: BP 106/73; PULSE 70; RESP 17; TEMP 36.8; O2SAT 96
--- NOTE | 2020-05-07 02:32 | PC.NURSE ---
pm assessment pt reports feeling better with his new medication valium that he started recently. He says that he is less anxious, no longer suicidal, denies HI. Patient has been out of his room interacting with other patients, ate his snack, is less isolative in his behavior. He is smiling more, interacting with staff more, and even seems to be resting instead of rocking in the floor of his room. He reports less anxiety, denies depression. Overall, there is a marked difference in the way this patient is acting and interacting with others. His communication is clearer and he does not avoid staff at this time.
[2020-05-07 06:00] VITALS: BP 95/67; PULSE 109; RESP 18; TEMP 36.8; O2SAT 98
[2020-05-07] MEDS: metformin XR 500 MG Tablet PO ×2 (08:17→17:34)
[2020-05-07] MEDS: lisinopril 20 mg Tablet 40 MG PO (08:17)
[2020-05-07] MEDS: topiramate 25 mg Tablet 50 MG PO ×2 (08:17→20:23)
[2020-05-07] MEDS: citalopram 20 mg Tablet 40 MG PO (08:18)
[2020-05-07] MEDS: diazePAM 2 mg Tablet PO (08:18)
[2020-05-07] MEDS: aspirin 81 mg EC Tablet PO (08:18)
[2020-05-07] MEDS: paliperidone ER 3 mg Tablet 9 MG PO (08:18)
[2020-05-07] MEDS: folic acid 1 mg Tablet PO (08:18)
[2020-05-07] MEDS: levETIRAcetam 500 mg Tablet 1000 MG PO ×2 (08:18→20:25)
[2020-05-07] MEDS: propranolol 20 mg Tablet 10 MG PO ×2 (08:18→17:34)
--- NOTE | 2020-05-07 09:49 | PM.NPN ---
Subjective NPU Subjective: Interval history: Patient states that he slept again well last night. His auditory hallucinations are down to a whisper . Mental Status Exam MSE Comments: Mental Status Exam: The patient is interviewed in the office. Eye contact is improved. He is believed to be a reliable informant as his statements today are consistent with those that he made yesterday. Appearance: hygiene is fair; no gross neurological deficits., gait is unremarkable; AIMS=0; no tremors, no cogwheel rigidity Speech: Speech is of normal rate and rhythm and easily understood. Thought processes: Thought processes are abstract. Judgment is not adequate for safety. Associations: intact Psychotic processes: There is no indication of guarding or paranoia. There is no attention to the internal stimuli. He reports persistent auditory hallucinations that are a level 4 on a 1-10 scale. Judgment: Insight is fair. Problem solving skills are adequate for safety. Orientation: The patient is oriented to person, place time and situation. Memory: no deficits noted in immediate, intermediate, or remote spheres. Attention: The patient is alert and interpersonally engaged. Language: Verbalizations are coherent. Fund of knowledge: Fund of knowledge is adequate. Affect/Mood: Affect is consistent with a euthymic mood. pt denies suicidal ideation Affective range is good Psychosis: perception unimpaired except through cognitive distortion; reality testing intact. Cognition: Patient Appearance: Disheveled/Poor Hygiene Level of Consciousness: Awake, Alert, Follows Commands and Restless Patient Cognition Impaired: No Ability to Follow Directions: Good Patient Orientation (long list): Person, Place, Time, Name, Age, Birthday, Day of Month, Day of Week, Month, Time of Day and Year Comprehension Ability: No Impairment Hallucination Type: None Delusion Description: Not Present Thought Process: Loose Associations Affect: Affect Description: Appropriate Behavior: Patient Behavior: Appropriate Speech Pattern: Appropriate Vitals/I&O/Wt Last Vital Signs Temp 98.2 F 05/07/20 06:00 Pulse 109 H 05/07/20 06:00 Resp 18 05/07/20 06:00 BP 95/67 05/07/20 06:00 Pulse Ox 98 05/07/20 06:00 Data NPU : 04/28/20 19:51 04/28/20 19:51 A&P Assessment and plan (1) Major depression, recurrent, chronic: Status: Chronic (2) Acne rosacea: Status: Chronic (3) Cerebrovascular accident (CVA): Status: Acute (4) Nicotine dependence, unspecified, uncomplicated: Status: Chronic (5) Alcohol use disorder, severe, dependence: Status: Chronic (6) Schizophrenia: Status: Acute Qualifiers: Schizophrenia type: unspecified Qualified Code(s): F20.9 - Schizophrenia, unspecified (7) Psoriasis: Status: Chronic (8) Seizure disorder: Status: Chronic (9) Acute neuroleptic-induced akathisia: Status: Acute Additional A&P Information (1) Major depression, recurrent, chronic: (2) Acne rosacea: (3) Cerebrovascular accident (CVA): (4) Nicotine dependence, unspecified, uncomplicated: (5) Alcohol use disorder, severe, dependence: (6) Schizophrenia: (7) Psoriasis: (8) Seizure disorder: This is a 44-year-old white male with a long history of mental health and addiction issues who presents reporting that he has been sober for 2 weeks and hoping to get his medications stabilized and consider some kind of long-term housing that might assist him in being more functional. 1. Hopsital day #4: Continue current medications. Maintain citalopram at 40 mg. Decrease Invega back to 9 mg with consideration of decrease over time if he remains sober and he continues to demonstrate tardive movements. Sleep was reported by him to be a severe problem. Pt will be started on Doxepin 100 mg plus diazepam 5 mg at bedtime as these have been effecdtive for him in the past. these will likely be titrated over time. It is believed that a change in living arragements will be critical in changing his path to one of sobriety and reduction in encironmental stressors and thus return him to a previous level of mental health stability. Hospital day #5: Patient presents as though he is experiencing acute severe akathisia. This would be consistent with his complaint that his symptoms go up and down around at the time of the Invega Sustenna injection. He responded well to the doxepin and diazepam last night for sleep. Focus at this point is going to be to try and get his akathisia under control so he is able to think more clearly and assist in his discharge planning in a more supportive environment. We will give him a 1 time dose of diazepam 5 mg this afternoon and replace his carvedilol with propranolol 10 mg 3 times daily. His baseline dose last time he was on this medication was 20 mg 3 times daily. We will wait and observe his response to this dosage before increasing. Hospital day #5: Akathisia is improving with the addition of doxepin, diazepam, and switch from carvedilol to propranolol. Blood pressures are not significantly changed. Auditory hallucinations are reduced. However the patient was educated that this is early in the process and continued observation and titration are required as staff works on a change in his placement. #6 Patient is day #4 of increased dose of Celexa. His has been going a little low in the evening after switching to propranolol. He denied the presence of dizziness or lightheadedness. He reports the auditory hallucinations are at a whisper. He is awaiting placement and is bored in the meantime. Plan: Decrease propranolol to 10 mg twice daily. Hospital day #7: Patient is doing well today. This is normally the point at which he goes home. However we discussed staff concerns about breaking the cycle of going home and doing poorly and then getting placed on higher dose of antipsychotic medication, doing even more poorly and they are winding up back here. All agree that a change in placement is needed. His greatest barrier is boredom over the next 72 hours trying to get through this holiday weekend with nothing to do on the unit. Problem solving and observations were provided and he will try to enlist those coping skills. Hospital Day #8: Pt taught how to do [employer] puzzles so that he may be bettr able to get though the weekend without leaving and this be able to get to placement. Diazepam reduced to 5 mg q hs only. 2. Continue every 15 minute checks for safety. 3. Encourage individual, group and milieu therapies. 4. Encourage sober living follow-up at the highest level of care to which he is willing to commit. Involuntary Hold Information 96 Hour Hold: 96 Hour Involuntary Admission: Yes 96 Hour Hold Ending Date: 05/04/20 96 Hour Hold Ending Time: 19:15 Attestations NPU Medical Necessity Statement*: Patient will remain in the hospital another 2 to 3 days until placement can be found. Coding Level of Care Code Acute Handle Bender for [facility] Diagnoses Major depression, recurrent, chronic F33.9 Acne rosacea L71.9 Cerebrovascular accident (CVA) I63.9 Nicotine dependence, unspecified, uncomplicated F17.200 Alcohol use disorder, severe, dependence F10.20 Schizophrenia F20.9 Schizophrenia type: unspecified Psoriasis L40.9 Seizure disorder G40.909 Acute neuroleptic-induced akathisia G25.71; T43.505A
[2020-05-07 14:00] VITALS: PULSE 81; RESP 17; TEMP 36.8
[2020-05-07] MEDS: diazePAM 5 mg Tablet PO (20:23)
[2020-05-07] MEDS: doxepin 50 mg Capsule 100 MG PO (20:24)
[2020-05-07 22:00] VITALS: BP 98/67; PULSE 83; RESP 20; TEMP 36.6; O2SAT 97
[2020-05-08 06:00] VITALS: BP 97/64; PULSE 57; RESP 18; TEMP 36.6; O2SAT 93
[2020-05-08] MEDS: fenofibrate 145 mg Tablet PO (08:27)
[2020-05-08] MEDS: lisinopril 20 mg Tablet 40 MG PO (08:27)
[2020-05-08] MEDS: paliperidone ER 3 mg Tablet 9 MG PO (08:27)
[2020-05-08] MEDS: propranolol 20 mg Tablet 10 MG PO ×2 (08:27→17:18)
[2020-05-08] MEDS: folic acid 1 mg Tablet PO (08:29)
[2020-05-08] MEDS: aspirin 81 mg EC Tablet PO (08:29)
[2020-05-08] MEDS: citalopram 20 mg Tablet 40 MG PO (08:30)
[2020-05-08] MEDS: b-complex-vitamin c Tablet 1 EACH PO (08:30)
[2020-05-08] MEDS: topiramate 25 mg Tablet 50 MG PO ×2 (12:15→20:08)
[2020-05-08] MEDS: metformin XR 500 MG Tablet PO ×2 (12:15→17:18)
[2020-05-08] MEDS: levETIRAcetam 500 mg Tablet 1000 MG PO ×2 (12:16→19:59)
[2020-05-08 13:31] VITALS: BP 121/85; PULSE 73; RESP 18; TEMP 36.8
[2020-05-08 19:53] VITALS: BP 96/63; PULSE 55; RESP 15; TEMP 36.7; O2SAT 92
[2020-05-08] MEDS: doxepin 50 mg Capsule 100 MG PO (19:59)
[2020-05-08] MEDS: diazePAM 5 mg Tablet PO (19:59)
--- NOTE | 2020-05-08 20:02 | PM.NPN ---
Subjective NPU Subjective: Interval history: Reinaldo presented today reporting that things are going fairly well. He reports that he and Dr. Arriaga for final adjustments on his medications and he feels that he is doing pretty good. He reports that he is awaiting acknowledgment of his acceptance and/or a bed opening at [facility]. Otherwise he reports things are stable. Mental Status Exam MSE Comments: This is an obese white male with hospital scrubs on with improving eye contact and appearing to have better grooming. No abnormal movements except for psychomotor retardation. Cooperative and in no acute distress. Speech was decreased rate and volume. Mood described as better since last seen by this specification writer, affect congruent. Thought process organized. Thought content: Patient denied suicidal or homicidal ideation, there were no delusions reported or noted, he denied any auditory or visual hallucinations. Attention and concentration appeared intact and memory was mostly reliable but none were formally tested. The alert and oriented x3. Insight and judgment are improving, impulse control is improving, intellectual ability limited. Vitals/I&O/Wt Last Vital Signs Temp 98.0 F 05/08/20 19:53 Pulse 55 L 05/08/20 19:53 Resp 15 05/08/20 19:53 BP 96/63 05/08/20 19:53 Pulse Ox 92 05/08/20 19:53 Weight last 48 hrs Weight 99.79 kg Data NPU : 04/28/20 19:51 04/28/20 19:51 A&P Additional A&P Information (1) Major depression, recurrent, chronic: (2) Acne rosacea: (3) Cerebrovascular accident (CVA): (4) Nicotine dependence, unspecified, uncomplicated: (5) Alcohol use disorder, severe, dependence: (6) Schizophrenia: (7) Psoriasis: (8) Seizure disorder: This is a 44-year-old white male with a long history of mental health and addiction issues who presents reporting that he has been sober for 2 weeks and hoping to get his medications stabilized and consider some kind of long-term housing that might assist him in being more functional. 1. Continue current medications. 2. Continue every 15 minute checks for safety. 3. Encourage individual, group and milieu therapies. 4. Encourage sober living follow-up at the highest level of care to which he is willing to commit. 5. Await bed date at [facility] Involuntary Hold Information 96 Hour Hold: 96 Hour Involuntary Admission: Yes 96 Hour Hold Ending Date: 05/04/20 96 Hour Hold Ending Time: 19:15 Attestations NPU Medical Necessity Statement*: Inpatient hospitalization is medically necessary and the clinically appropriate intervention at this time. We will monitor medications and make changes as indicated. Likely next day 2-4 days. Coding Level of Care Code Acute Boiler Inspector for Carlos Armstrong
[2020-05-08 20:37] LABS: Glucose Point of Care 108 mg/dL (70-110)
[2020-05-08 20:37] LABS: Glucose Point of Care 104 mg/dL (70-110)
[2020-05-09 06:00] VITALS: BP 111/78; PULSE 91; RESP 15; TEMP 36.8; O2SAT 98
[2020-05-09 06:44] LABS: Glucose Point of Care 96 mg/dL (70-110)
[2020-05-09] MEDS: levETIRAcetam 500 mg Tablet 1000 MG PO ×2 (07:55→19:54)
[2020-05-09] MEDS: aspirin 81 mg EC Tablet PO (07:55)
[2020-05-09] MEDS: folic acid 1 mg Tablet PO (07:55)
[2020-05-09] MEDS: propranolol 20 mg Tablet 10 MG PO ×2 (07:55→19:53)
[2020-05-09] MEDS: topiramate 25 mg Tablet 50 MG PO ×2 (07:55→19:53)
[2020-05-09] MEDS: metformin XR 500 MG Tablet PO ×2 (07:55→16:29)
[2020-05-09] MEDS: lisinopril 20 mg Tablet 40 MG PO (07:56)
[2020-05-09] MEDS: b-complex-vitamin c Tablet 1 EACH PO (07:56)
[2020-05-09] MEDS: citalopram 20 mg Tablet 40 MG PO (07:56)
[2020-05-09] MEDS: paliperidone ER 3 mg Tablet 9 MG PO (07:56)
[2020-05-09] MEDS: fenofibrate 145 mg Tablet PO (07:56)
--- NOTE | 2020-05-09 12:09 | P.PN_ITS ---
Subjective NPU Subjective: Interval history: Reinaldo today reporting that he is feeling all right. He reports that he is trying to stay optimistic as we continue to try to obtain placement. We explained that we got some resistance from a couple secondary to that he is having suicidal ideation initially and we are continuing to work with him to understand that that was his presentation and not where he is now. Also some places only had 1 bed and there was a question of goodness of fit with the potential roommate in the facility. Otherwise we discussed the fact that his information has been presented to multiple entities and we are just awaiting acceptance. He reports he is eating fine and sleeping better. Mental Status Exam MSE Comments: This is an obese white male with hospital scrubs on with adequate grooming and eye contact. No abnormal movements except for mild psychomotor retardation. Cooperative and in no acute distress. Speech was decreased rate and volume. Mood described as okay, affect congruent. Thought process organized. Thought content: Patient denied suicidal or homicidal ideation, there were no delusions reported or noted, he denied any auditory or visual hallucinations. Attention and concentration appeared intact and memory was mostly reliable but none were formally tested. The alert and oriented x3. Insight and judgment are improving, impulse control is improving, intellectual ability limited. Vitals/I&O/Wt Last Vital Signs Temp 97.8 F 05/09/20 20:02 Pulse 76 05/09/20 20:02 Resp 17 05/09/20 20:02 BP 103/68 05/09/20 20:02 Pulse Ox 91 05/09/20 20:02 Data NPU : 04/28/20 19:51 04/28/20 19:51 A&P Additional A&P Information (1) Major depression, recurrent, chronic: (2) Acne rosacea: (3) Cerebrovascular accident (CVA): (4) Nicotine dependence, unspecified, uncomplicated: (5) Alcohol use disorder, severe, dependence: (6) Schizophrenia: (7) Psoriasis: (8) Seizure disorder: This is a 44-year-old white male with a long history of mental health and addiction issues who presents reporting that he has been sober for 2 weeks and hoping to get his medications stabilized and consider some kind of long-term housing that might assist him in being more functional. 1. Continue current medications. 2. Continue every 15 minute checks for safety. 3. Encourage individual, group and milieu therapies. 4. Encourage sober living follow-up at the highest level of care to which he is willing to commit. 5. Awaiting acceptance/placement in residential treatment facility Involuntary Hold Information 96 Hour Hold: 96 Hour Involuntary Admission: Yes 96 Hour Hold Ending Date: 05/04/20 96 Hour Hold Ending Time: 19:15 Attestations NPU Medical Necessity Statement*: Inpatient hospitalization is medically necessary and the clinically appropriate intervention at this time. We will monitor medications and make changes as indicated. Likely next day 2-3 days. Coding Level of Care Code Acute Helper Coordinator for Carlos Armstrong
[2020-05-09 12:40] VITALS: BP 92/58; PULSE 65; RESP 18; TEMP 36.9; O2SAT 94
[2020-05-09] MEDS: diazePAM 5 mg Tablet PO (19:53)
[2020-05-09] MEDS: doxepin 50 mg Capsule 100 MG PO (19:54)
[2020-05-09 20:02] VITALS: BP 103/68; PULSE 76; RESP 17; TEMP 36.6; O2SAT 91
[2020-05-09 20:07] LABS: Glucose Point of Care 109 mg/dL (70-110)
[2020-05-10 06:00] VITALS: BP 113/53; PULSE 68; RESP 15; TEMP 36.8; O2SAT 96
[2020-05-10 06:34] LABS: Glucose Point of Care 94 mg/dL (70-110)
[2020-05-10] MEDS: metformin XR 500 MG Tablet PO ×2 (07:35→17:08)
[2020-05-10] MEDS: citalopram 20 mg Tablet 40 MG PO (07:35)
[2020-05-10] MEDS: paliperidone ER 3 mg Tablet 9 MG PO (07:35)
[2020-05-10] MEDS: propranolol 20 mg Tablet 10 MG PO ×2 (07:36→19:51)
[2020-05-10] MEDS: levETIRAcetam 500 mg Tablet 1000 MG PO ×2 (07:36→19:51)
[2020-05-10] MEDS: lisinopril 20 mg Tablet 40 MG PO (07:36)
[2020-05-10] MEDS: folic acid 1 mg Tablet PO (07:36)
[2020-05-10] MEDS: aspirin 81 mg EC Tablet PO (07:36)
[2020-05-10] MEDS: topiramate 25 mg Tablet 50 MG PO ×2 (07:36→19:52)
[2020-05-10] MEDS: fenofibrate 145 mg Tablet PO (07:39)
[2020-05-10] MEDS: nicotine 21 mg Patch 1 PATCH TRANSDERMA (13:57)
[2020-05-10 14:00] VITALS: BP 107/72; PULSE 77; RESP 18; TEMP 36.2; O2SAT 97
[2020-05-10] MEDS: b-complex-vitamin c Tablet 1 EACH PO (14:30)
--- NOTE | 2020-05-10 16:41 | P.PN_ITS ---
Subjective NPU Subjective: Interval history: Reinaldo presents today a little worried that some options for placement will not materialize. Otherwise he reports that he feels good continuing his path to ongoing sobriety and reports that he feels medications are poor. He is eating fine and trying to be more interactive and sleep less. He is noted to be out on the unit more. Mental Status Exam MSE Comments: This is an obese white male with hospital scrubs on with adequate grooming and eye contact. No abnormal movements except for mild psychomotor retardation. Cooperative with exam, in no acute distress. Speech was decreased rate and volume. Mood described as all right, affect congruent. Thought process organized. Thought content: Patient denied suicidal or homicidal ideation, there were no delusions reported or noted, he denied any auditory or visual hallucinations. Attention and concentration appeared intact and memory was mostly reliable but none were formally tested. The alert and oriented x3. Insight and judgment are improving, impulse control is improving, intellectual ability limited. Vitals/I&O/Wt Last Vital Signs Temp 97.8 F 05/10/20 20:25 Pulse 64 05/10/20 20:25 Resp 16 05/10/20 20:25 BP 122/73 05/10/20 20:25 Pulse Ox 93 05/10/20 20:25 Data NPU : 04/28/20 19:51 04/28/20 19:51 A&P Additional A&P Information (1) Major depression, recurrent, chronic: (2) Acne rosacea: (3) Cerebrovascular accident (CVA): (4) Nicotine dependence, unspecified, uncomplicated: (5) Alcohol use disorder, severe, dependence: (6) Schizophrenia: (7) Psoriasis: (8) Seizure disorder: This is a 44-year-old white male with a long history of mental health and addiction issues who presents reporting that he has been sober for 2 weeks and hoping to get his medications stabilized and consider some kind of long-term jodi sing that might assist him in being more functional. 1. Continue current medications. 2. Continue every 15 minute checks for safety. 3. Encourage individual, group and milieu therapies. 4. Encourage sober living follow-up at the highest level of care to which he is willing to commit. 5. Awaiting acceptance/placement in residential treatment facility Involuntary Hold Information 96 Hour Hold: 96 Hour Involuntary Admission: Yes 96 Hour Hold Ending Date: 05/04/20 96 Hour Hold Ending Time: 19:15 Attestations NPU Medical Necessity Statement*: Inpatient hospitalization is medically necessary and the clinically appropriate intervention at this time. We will monitor medications and make changes as indicated. Likely next day 1-3 days. Coding Level of Care Code Acute Auto Technician Mechanic for Carlos Armstrong
[2020-05-10 19:30] LABS: Glucose Point of Care 106 mg/dL (70-110)
[2020-05-10] MEDS: doxepin 50 mg Capsule 100 MG PO (19:51)
[2020-05-10 20:25] VITALS: BP 122/73; PULSE 64; RESP 16; TEMP 36.6; O2SAT 93
[2020-05-11 06:00] VITALS: BP 95/69; PULSE 99; RESP 17; TEMP 36.8; O2SAT 96
[2020-05-11] MEDS: levETIRAcetam 500 mg Tablet 1000 MG PO ×2 (07:21→20:51)
[2020-05-11] MEDS: propranolol 20 mg Tablet 10 MG PO ×2 (07:22→20:51)
[2020-05-11] MEDS: metformin XR 500 MG Tablet PO ×2 (07:22→16:41)
[2020-05-11] MEDS: b-complex-vitamin c Tablet 1 EACH PO (07:23)
[2020-05-11] MEDS: folic acid 1 mg Tablet PO (07:23)
[2020-05-11] MEDS: fenofibrate 145 mg Tablet PO (07:23)
[2020-05-11] MEDS: lisinopril 20 mg Tablet 40 MG PO (07:24)
[2020-05-11] MEDS: citalopram 20 mg Tablet 40 MG PO (07:24)
[2020-05-11] MEDS: topiramate 25 mg Tablet 50 MG PO ×2 (07:25→20:52)
[2020-05-11] MEDS: aspirin 81 mg EC Tablet PO (07:25)
[2020-05-11] MEDS: paliperidone ER 3 mg Tablet 9 MG PO (07:25)
[2020-05-11 12:22] VITALS: BP 115/83; PULSE 85; RESP 18; TEMP 36.8; O2SAT 96
--- NOTE | 2020-05-11 15:04 | P.PN_ITS ---
Subjective NPU Subjective: Interval history: Reinaldo presents today fairly happy at the prospect of finding a place to reside and continue to stabilize. He understands the couple of tests we need to do to get him clearance for that. He reports that he has no complaints and is excited about this next phase of his life. Mental Status Exam MSE Comments: This is an obese white male with hospital scrubs on with adequate grooming and eye contact. No abnormal movements except for mild psychomotor retardation, which is improving. Cooperative with exam, in no acute distress. Speech was more normal rate and volume. Mood described as happy, affect brighter. Thought process organized. Thought content: Patient denied suicidal or homicidal ideation, there were no delusions reported or noted, he denied any auditory or visual hallucinations. Attention and concentration appeared intact and memory was mostly reliable but none were formally tested. The alert and oriented x3. Insight and judgment are improving, impulse control is improving, intellectual ability limited. Vitals/I&O/Wt Last Vital Signs Temp 98.2 F 05/11/20 12:22 Pulse 85 05/11/20 12:22 Resp 18 05/11/20 12:22 BP 115/83 05/11/20 12:22 Pulse Ox 96 05/11/20 12:22 Data NPU : 04/28/20 19:51 04/28/20 19:51 A&P Additional A&P Information (1) Major depression, recurrent, chronic: (2) Acne rosacea: (3) Cerebrovascular accident (CVA): (4) Nicotine dependence, unspecified, uncomplicated: (5) Alcohol use disorder, severe, dependence: (6) Schizophrenia: (7) Psoriasis: (8) Seizure disorder: This is a 44-year-old white male with a long history of mental health and addiction issues who presents reporting that he has been sober for 2 weeks and hoping to get his medications stabilized and consider some kind of long-term housing that might assist him in being more functional. 1. Continue current medications. 2. Continue every 15 minute checks for safety. 3. Encourage individual, group and milieu therapies. 4. Encourage sober living follow-up at the highest level of care to which he is willing to commit. 5. He was excepted to a facility and now needs a T spot TB test and a rapid Covid screen to be allowed to be transferred to them on Saturday. Involuntary Hold Information 96 Hour Hold: 96 Hour Involuntary Admission: Yes 96 Hour Hold Ending Date: 05/04/20 96 Hour Hold Ending Time: 19:15 Attestations NPU Medical Necessity Statement*: Inpatient hospitalization is medically necessary and the clinically appropriate intervention at this time. We will monitor medications and make changes as indicated. He will be transferred to the new facility on Saturday as long as his rapid Covid screen and his T spot TB test are taking care of and negative. Coding Level of Care Code Acute Network Systems Engineer for Carlos Armstrong
[2020-05-11 20:01] LABS: Glucose Point of Care 120 mg/dL (70-110)
[2020-05-11 20:10] VITALS: BP 103/73; PULSE 99; RESP 18; TEMP 36.8; O2SAT 95
[2020-05-11] MEDS: doxepin 50 mg Capsule 100 MG PO (20:53)
[2020-05-12 06:00] VITALS: BP 121/77; PULSE 57; RESP 18; TEMP 36.5; O2SAT 94
[2020-05-12 07:48] LABS: Glucose Point of Care 101 mg/dL (70-110)
[2020-05-12] MEDS: paliperidone ER 3 mg Tablet 9 MG PO (08:43)
[2020-05-12] MEDS: propranolol 20 mg Tablet 10 MG PO ×2 (08:43→21:46)
[2020-05-12] MEDS: fenofibrate 145 mg Tablet PO (08:43)
[2020-05-12] MEDS: citalopram 20 mg Tablet 40 MG PO (08:43)
[2020-05-12] MEDS: lisinopril 20 mg Tablet 40 MG PO (08:43)
[2020-05-12] MEDS: topiramate 25 mg Tablet 50 MG PO ×2 (08:44→21:47)
[2020-05-12] MEDS: b-complex-vitamin c Tablet 1 EACH PO (08:44)
[2020-05-12] MEDS: aspirin 81 mg EC Tablet PO (08:44)
[2020-05-12] MEDS: metformin XR 500 MG Tablet PO ×2 (08:44→17:17)
[2020-05-12] MEDS: levETIRAcetam 500 mg Tablet 1000 MG PO ×2 (08:44→21:46)
[2020-05-12] MEDS: folic acid 1 mg Tablet PO (08:44)
[2020-05-12 11:00] LABS: SARS Covid-2 Antigen Negative (Negative)
[2020-05-12 14:00] VITALS: BP 105/73; PULSE 90; RESP 20; TEMP 36.8; O2SAT 96
--- NOTE | 2020-05-12 15:26 | P.PN_ITS ---
Subjective NPU Subjective: Interval history: Reinaldo presents today very happy about the prospect of going to placement tomorrow. We spent a significant amount of day trying to figure out how to navigate the TB testing that they were requesting. Ultimately we sent out the blood draw version of the TB test and it is unclear whether the facility will accept that when it becomes available but they have agreed to take him with that as pending information. His rapid Covid screen was negative. He reports that he is eating and sleeping well and looks forward to discharge tomorrow. Mental Status Exam MSE Comments: This is an obese white male with hospital scrubs on with adequate grooming and eye contact. No abnormal movements except for mild but improving psychomotor retardation. Cooperative with exam, in no acute distress. Speech was more normal rate and volume. Mood described as pretty good, affect congruent. Thought process organized. Thought content: Patient denied suicidal or homicidal ideation, there were no delusions reported or noted, he denied any auditory or visual hallucinations. Attention and concentration appeared intact and memory was mostly reliable but none were formally tested. The alert and oriented x3. Insight and judgment are improving, impulse control is improving, intellectual ability limited. Vitals/I&O/Wt Last Vital Signs Temp 98.2 F 05/12/20 14:00 Pulse 90 05/12/20 14:00 Resp 20 H 05/12/20 14:00 BP 105/73 05/12/20 14:00 Pulse Ox 96 05/12/20 14:00 Data NPU : 04/28/20 19:51 04/28/20 19:51 A&P Additional A&P Information (1) Major depression, recurrent, chronic: (2) Acne rosacea: (3) Cerebrovascular accident (CVA): (4) Nicotine dependence, unspecified, uncomplicated: (5) Alcohol use disorder, severe, dependence: (6) Schizophrenia: (7) Psoriasis: (8) Seizure disorder: This is a 44-year-old white male with a long history of mental health and addiction issues who presents reporting that he has been sober for 2 weeks and hoping to get his medications stabilized and consider some kind of long-term housing that might assist him in being more functional. 1. Continue current medications. 2. Continue every 15 minute checks for safety. 3. Encourage individual, group and milieu therapies. 4. He was accepted to a facility and we have plan to discharge in the morning, having fulfilled their requirements for acceptance on this the first day available for them to take him. Involuntary Hold Information 96 Hour Hold: 96 Hour Involuntary Admission: Yes 96 Hour Hold Ending Date: 05/04/20 96 Hour Hold Ending Time: 19:15 Attestations NPU Medical Necessity Statement*: Inpatient hospitalization is medically necessary and the clinically appropriate intervention at this time. We will monitor medications and make changes as indicated. He will be transferred to the new facility tomorrow. Coding Level of Care Code Acute Steam Setter for Carlos Armstrong
[2020-05-12 19:36] VITALS: BP 113/84; PULSE 68; RESP 16; TEMP 36.3; O2SAT 95
--- NOTE | 2020-05-12 20:04 | PC.NURSE ---
PM assessment Pt is sitting in the floor of his room with the lights off rocking. He reports being less anxious and ready to leave in the morning. He denies AH/Si at this time. Pt says that he is going to [facility] in [facility] in the morning. He is smiling, talkative, and seems genuinely better than he was last week. He is clean and eyes are clear. No obvious signs of distress noted. This patient rocks and has done this since childhood.
[2020-05-12 21:13] LABS: Glucose Point of Care 114 mg/dL (70-110)
[2020-05-12] MEDS: doxepin 50 mg Capsule 100 MG PO (21:47)
--- NOTE | 2020-05-13 05:25 | PC.NURSE ---
Last Invega injection was given on 04/28/20 at 9am per ED record.
--- NOTE | 2020-05-13 05:30 | P.DS_ITS ---
Diagnoses at Discharge Discharge Diagnosis (1) Major depression, recurrent, chronic: Status: Chronic (2) Acne rosacea: Status: Chronic (3) Cerebrovascular accident (CVA): Status: Acute (4) Nicotine dependence, unspecified, uncomplicated: Status: Chronic (5) Alcohol use disorder, severe, dependence: Status: Chronic (6) Schizophrenia: Status: Acute Qualifiers: Schizophrenia type: unspecified Qualified Code(s): F20.9 - Schizophrenia, unspecified (7) Psoriasis: Status: Chronic (8) Seizure disorder: Status: Chronic (9) Acute neuroleptic-induced akathisia: Status: Acute Reason for Visit Reason for Visit: SI/ HEARING VOICES Brief History: History of Present Illness Reinaldo Flores is a 44 year old male who [facility] with the following report: Chief Complaint: Psychiatric Symptoms Stated Complaint: SI/ HEARING VOICES Time Seen by Provider: 04/28/20 18:02 History of Present Illness: HPI Narrative: This patient is a 44-year-old gentleman who presents with suicidal ideation. He is having auditory hallucinations and the voices are telling him to run out in traffic. He later mentioned going on to the train tracks as well. He is quite agitated and pacing back and forth in the room. He has a history of schizophrenia and gets Invega shots. He got 1 this morning at 9 AM and he said it has only made things worse. MD complaint: suicidal ideation Onset (ago): day(s) Duration: constant and getting worse History of same: Yes Relieving factors: none Exacerbating factors: none Associated psychiatric symptoms: depression, suicidal ideation, racing thoughts and auditory hallucinations Associated symptoms: Reports auditory hallucinations and suicidal ideation Treatments prior to arrival: none. He was admitted to the neuropsychiatric unit for definitive treatment of those issues. Today he presents reporting that he has had some rough time since his last hospitalization. He reports that he finally acknowledges that he has to get the alcohol out of the way so he can get the help he needed this office. He is current with his Invega injection. He reports it has been 2 weeks since his last drink. He reports that he loves of pickup where he left off last hospitalization where we were trying to get him into the lamp light. He reports that he continues to struggle functioning independently but knows that he had a little bit of assistance he would have a more productive more effective life and his mental health could be stable and he hopes to take drinking out of the picture. He endorses being safe here but reports that he has had worsening suicidal thoughts recently and he is open to make sure that he is on the right medications and possibly get connected with family. We reviewed his 04/05/2020 inpatient evaluation and he reports that it is a accurate depiction of his psychosocial circumstances with no substantive changes. An excerpt can be found below. Per his 04/05/2020 [facility] inpatient evaluation: History of Present Illness Reinaldo Flores is a 44-year-old male with an extensive history of admissions and outpatient [facility]. Historically he has struggled with depression and auditory hallucinations. He has a diagnosis of schizophrenia based primarily on the presence of auditory hallucinations alone. He says that Invega is the only medication that has been helpful with the hallucinations. He was seen by his outpatient psychiatrist 2 weeks ago. It was an unremarkable visit except for the fact that the patient is drinking a half a gallon of hard liquor per day. Unfortunately, that is a pattern of behavior to such a degree that it is not given as cause for alarm when reported. He continues to labor under significant symptoms of depression with multiple extenuating circumstances. He continues to have complicated morning over the loss of his marriage 11 years ago and the removal of contact from his children. He has no regular contact with them. He has lost his employment. His alcohol use likely also feels depressive symptoms. These include anhedonia, feelings of hopelessness and worthlessness, low self-esteem, irritability, poor concentration, poor energy and insomnia. He states that he received his scheduled injection of Invega 234 mg. Then he immediately became despondent to the point of imminently suicidal. He has been this way before. He does not feel that it was the injection that caused the suicidality but rather his drinking. He expects that this will be resolved once he is through the period of withdrawal for his alcohol. We discussed his alcohol intake. He has been through rehab 1 time last year. This was somewhere in [place]. He immediately began drinking after the rehab and says that it provided no significant benefit. However this was his only experience at rehab. He has a history of a withdrawal symptoms but no DTs. He has no history of seizures. Laboratory Tests 04/04/20 04/04/20 12:20 13:30 Urine Opiates Screen Negative Ur Barbiturates Screen Negative Ur Phencyclidine Scrn Negative Ur Amphetamines Screen Negative U Benzodiazepines Scrn Negative Urine Cocaine Screen Negative U Marijuana (THC) Screen Negative Ethyl Alcohol 98 H ER Physician note: HPI Narrative: Reinaldo is a 44-year-old male history of schizophrenia who please recall as he is having suicidal ideations. He told the police that he want to kill himself and had a plan of jumping out into traffic. He also told EMS he wanted to jump out of the back of the ambulance. Patient is quite anxious here and is pacing in the room. He denies any active suicidality at this time. Past psychiatric history: This is the 12th psychiatric hospitalization at [facility] over the past 7 years. 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 He subsequently had a stroke followed by auditory hallucinations and has been hospitalized here in a psychotic episode just a week ago. The patient comes in, having been discovered by the police he was at that point wanted to lay on the railroad tracks and get himself killed. He also has absences, which often and with him in surprising situations that could compromise his [place]. The patient has a history of alcohol consumption with, he claims, 3-4 beers in a week since he was discharged. He denies illicit drugs. He clearly needs hospitalization at this time in light of the fact that he is actively psychotic and harboring potentially dangerous ideation directed at himself and others. He was discharged 13 days later on : Diazepam (Valium) 10 MG PO TID PRN MARKED ANXIETy Doxepin (Sinequan) 25 MG PO HS #30 Paliperidone (Invega) 9 MG PO DAILY Perphenazine (Trilafon Tab) 8 MG PO BID Days Levetiracetam Er (Keppra Er) 750 MG PO BID MG Lisinopril (Zestril) 40 MG PO DAILY #30 Paliperidone Palmitate (Invega Sustenna) 156 MG IM give on 08/15/15 Days 1 Ref 0 MG Propranolol (Inderal) 60 MG PO TID #90 Ref 0 TAB He remained free of psychiatric hospitalizations for the next three years on those medications. The patient was admitted to the neuropsychiatric unit on 03/03/2020 under very similar circumstances. He was in the hospital for 4 days. As a result of that hospitalization he was initiated on lithium carbonate 300 mg 3 times daily. This was in addition to olanzapine 10 mg twice daily, Invega Sustenna 234 mg/month and Topamax 50 mg twice daily. [facility] was [facility]. A&P from his outpatient psychiatry appointment of 03/22/2020 Assesment & Plan Assessment: 44-year-old male with severe alcohol dependence along with a history of schizophrenia he also has a history of seizure disorder. He is drinking at a high level and has refused consideration of medication assisted treatment in the past. He likely has a psychotic symptoms related to heavy alcohol use. At this point I advised him to discontinue the lithium which she had not taken in a few days. Plan to discuss his case with his case resolution specialist and therapist as I feel like a higher level of care will be more appropriate given his inability to abstain from alcohol. We briefly discussed the idea of medication assisted treatment today, and his lab work was reviewed with liver enzymes and kidney function being reasonable. Given the fact that he has such poor compliance with medications in general I am not sure that prescribing naltrexone or acamprosate at this point would be a great deal benefit, even if he were interested in treatment. Plan: Discontinue lithium Continue Zyprexa 10 mg twice daily Continue Invega 9 mg daily Continue Invega Sustenna 234 mg IM every 30 days He has refills on meds, return to clinic in 2 to 3 weeks. Past Medical/Social History: In 2010 the patient sustained a stroke. 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 Subsequent to this he developed psychotic symptoms, with auditory hallucinations and depression, suicidal ideation and, on occasion, homicidal ideation. He also developed grand mal seizures, which are now currently controlled on Keppra ER 750 mg by mouth twice a day. His psychotic symptoms have been managed with paloperidone, which he was receiving on an outpatient basis in the depot form, 156 mg IM monthly. The patient asserts that his only problem prior to his stroke was hypertension. He had no history of psychiatric disease, hospitalization symptomatology or psychosis. Other Family Medical History: Hospital Course Hospital Course Reinaldo presented to the emergency department reporting suicidal thoughts and being off his medications/no not working and not being able to contract for safety. He was admitted to the neuropsychiatric unit for definitive treatment of those issues. During the hospitalization it became clear that getting him a safe place to reside and get treatment was critical. This is difficult during the code with crisis. His medications were adjusted and he was able to contract for safety. A location was found for a safe discharge really would be a live need assistance with education management. During hospitalization he had routine laboratory studies which were within normal limits except for a few outliers. Additionally had a general medical evaluation which is also within normal limits and revealed no new acute processes. Discharge summary: At the time of discharge was absent lethality and psychosis. His mood and anxiety were well managed. He endorsed the plan to avoid all drugs of abuse and follow-up with the discharge planning arranged by the treatment team. He was evaluated and deemed to be absent current lethality and had achieved maximum benefit from inpatient hospitalization, so he was discharged. Involuntary Hold Information 96 Hour Hold: 96 Hour Involuntary Admission: Yes 96 Hour Hold Ending Date: 05/04/20 96 Hour Hold Ending Time: 19:15 Mental Status Exam MSE Comments: This is an obese white male with hospital scrubs on with adequate grooming and eye contact. No abnormal movements except for mild but improving psychomotor retardation. Cooperative with exam, in no acute distress. Speech was more normal rate and volume. Mood described as pretty good, affect congruent. Thought process organized. Thought content: Patient denied suicidal or homicidal ideation, there were no delusions reported or noted, he denied any auditory or visual hallucinations. Attention and concentration appeared intact and memory was mostly reliable but none were formally tested. The alert and oriented x3. Insight and judgment are improving, impulse control is improving, intellectual ability limited. Discharge Data Data Completed and Pending: Pending at discharge Category Date Time Status Adevqirzumt-FS-Qg ld Plus Routine Lab 05/12/20 11:48 Received Labs from last 24 hours 05/12/20 05/12/20 05/12/20 21:09 11:48 10:17 POC Glucose 114 SARS-CoV-2 Ag (Rap id) Negative TB (QFT) Gold In T ube Pending TB Test (QFT) Nil Pending TB Test (QFT) Steve gen Pending TB Test Mitogen - Nil Pending TB Test TB - Nil Pending 05/12/20 07:35 POC Glucose 101 SARS-CoV-2 Ag (Rap id) TB (QFT) Gold In T ube TB Test (QFT) Nil TB Test (QFT) Steve gen TB Test Mitogen - Nil TB Test TB - Nil Vitals: Last Vital Signs Temp 97.4 F L 05/12/20 19:36 Pulse 68 05/12/20 19:36 Resp 16 05/12/20 19:36 BP 113/84 05/12/20 19:36 Pulse Ox 95 05/12/20 19:36 Discharge Plan Discharge Patient Disposition: Home Condition: Stable Prescriptions: New aspirin 81 mg Tablet,Delayed Release (Dr/Ec) 81 mg PO DAILY 30 Days Qty: 30 RF: 1 citalopram 20 mg Tablet 40 mg PO DAILY 30 Days Qty: 60 RF: 1 doxepin 50 mg Capsule 100 mg PO BEDTIME 30 Days Qty: 60 RF: 1 benztropine 1 mg Tablet 1 mg PO BID PRN (Reason: Mild Extrapyramidal symptoms) 30 Days Qty: 60 RF: 1 propranolol 20 mg Tablet 10 mg PO Q12H 30 Days Qty: 30 RF: 1 hydroxyzine pamoate 25 mg Capsule 50 mg PO Q6H PRN (Reason: Anxiety) 30 Days Qty: 180 RF: 1 Continued vitamin B complex Tablet Extended Release 1 tab PO DAILY 30 Days Qty: 30 RF: 0 topiramate 50 mg tablet 50 mg PO BID 30 Days Qty: 60 RF: 1 MetroLotion 0.75 % lotion 1 applic TOPICAL BID 30 Days Qty: 59 RF: 1 triamcinolone acetonide 0.1 % ointment See Rx Instructions .ROUTE .COMPLEX 30 Days Qty: 1 RF: 1 folic acid 1 mg Tablet 1 mg PO DAILY 30 Days Qty: 30 RF: 1 lisinopril 40 mg tablet 40 mg PO DAILY 30 Days Qty: 30 RF: 1 metformin 500 mg tablet extended release 24 hr 500 mg PO BID 30 Days Qty: 60 RF: 1 Keppra 1,000 mg tablet 1,000 mg PO BID 30 Days Qty: 60 RF: 1 Tricor 145 mg tablet 145 mg PO DAILY 30 Days Qty: 30 RF: 1 Invega 9 mg tablet extended release 24hr 9 mg PO DAILY 30 Days Qty: 30 RF: 1 Invega Sustenna 234 mg/1.5 mL syringe 234 mg IM Q30D 30 Days Qty: 1 RF: 1 Discontinued carvedilol [Coreg] 6.25 mg tablet 6.25 mg PO DAILY Qty: 30 RF: 2 citalopram 20 mg Tablet 20 mg PO DAILY Qty: 30 RF: 2 aspirin 81 mg Tablet 81 mg PO DAILY RF: 0 Discharge Orders: Discharge Order (Routine); Ordered 05/13/20 Ordered By: Samuel Torres Referrals: Reinaldo Grimaldo MD [Physician] - 05/16/20 11:00 am (via phone. you said that you want to keep your psychiatrist as long as you can, especially since the visit can be done by phone. ) Arsen Walters, [place], ARBORICULTURE TEACHER [Referring] - 05/23/20 11:00 am (via phone. you said that you wanted to keep your appointment for individual therapy as long as they can be done over the phone. ) Discharge Diet: Cardiac and Diabetic Discharge Activity: Resume usual activity Patient Instructions: Propranolol (By mouth), Doxepin (By mouth), Hydroxyzine Pamoate (By mouth), Benztropine Mesylate (By mouth), Citalopram (By mouth), Depression (DC), Anxiety (DC) Activity Restrictions/Additional Instructions: Medications sent to [facility] COVID test negative TB Test will be done at [facility] you have been accepted at [address] [address] phone and fax number is the same. You will be followed by the provider at [facility]. You will be referred to a psychiatrist close to their facility, if needed. Your appointments at [facility] will remain since visit is over the phone. 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
[2020-05-13 06:00] VITALS: BP 117/83; PULSE 83; RESP 16; TEMP 36.3; O2SAT 97
[2020-05-13 06:44] VITALS: BP 117/83; PULSE 83; RESP 16; TEMP 36.3; O2SAT 97
[2020-05-13] MEDS: aspirin 81 mg EC Tablet PO (08:10)
[2020-05-13] MEDS: lisinopril 20 mg Tablet 40 MG PO (08:10)
[2020-05-13] MEDS: b-complex-vitamin c Tablet 1 EACH PO (08:10)
[2020-05-13] MEDS: paliperidone ER 3 mg Tablet 9 MG PO (08:10)
[2020-05-13] MEDS: propranolol 20 mg Tablet 10 MG PO (08:10)
[2020-05-13] MEDS: levETIRAcetam 500 mg Tablet 1000 MG PO (08:10)
[2020-05-13] MEDS: metformin XR 500 MG Tablet PO (08:10)
[2020-05-13] MEDS: folic acid 1 mg Tablet PO (08:11)
[2020-05-13] MEDS: fenofibrate 145 mg Tablet PO (08:11)
[2020-05-13] MEDS: citalopram 20 mg Tablet 40 MG PO (08:11)
[2020-05-13] MEDS: topiramate 25 mg Tablet 50 MG PO (08:15)
[2020-05-14 14:24] LABS: Quantiferon Mitogen 8.17 IU/mL; Quantiferon Nil 0.02 IU/mL; Quantiferon TB Gold NEGATIVE (NEGATIVE)
--- NOTE | 2020-05-16 09:17 | PC.SOCIAL ---
medicaid number [id number] was given to the [facility] supply chain design manager/homeowner association manager, Trista
== END 2020-05-13 11:09 | disposition home or self-care (01) | DRG 885 ==
LOC: ER 18:38 → NP 19:48
PROVIDERS: Admitting Provider Psychiatry & Neurology Psychiatry; Emergency Provider Emergency Medicine; PCP Nurse Practitioner; Visit Provider Psychiatry & Neurology Psychiatry
DX: F20.9 Schizophrenia, unspecified (principal); R45.851 Suicidal ideations; G40.909 Epilepsy, unspecified, not intractable, without status epilepticus; F17.210 Nicotine dependence, cigarettes, uncomplicated; Z86.73 Personal history of transient ischemic attack (TIA), and cerebral infarction without residual deficits; F33.8 Other recurrent depressive disorders; F10.20 Alcohol dependence, uncomplicated; Y90.9 Presence of alcohol in blood, level not specified; Y90.4 Blood alcohol level of 80-99 mg/100 ml; I10 Essential (primary) hypertension
CPT/HCPCS: 12345; 36415; 36416; 80053; 80306; 80307; 82962; 84443; 85025; 86480; 87426; 99284

== ENCOUNTER → 2020-05-16 08:03 | Outpatient (BNVA) | payer MEDICARE, SELFPAY | PROVIDERS: PCP Nurse Practitioner; Visit Provider Psychiatry & Neurology Psychiatry | DX: F33.9 Major depressive disorder, recurrent, unspecified (principal); F20.9 Schizophrenia, unspecified; F10.20 Alcohol dependence, uncomplicated | CPT/HCPCS: 99213 ==

== ENCOUNTER → 2021-08-11 11:13 | Outpatient (BNVA) | payer MEDICARE, MEDICAID, SELFPAY | PROVIDERS: PCP Nurse Practitioner; Visit Provider Nurse Practitioner | DX: F20.9 Schizophrenia, unspecified (principal); F33.9 Major depressive disorder, recurrent, unspecified; F17.210 Nicotine dependence, cigarettes, uncomplicated; F10.20 Alcohol dependence, uncomplicated | CPT/HCPCS: 90792 ==

== ENCOUNTER → 2021-08-21 10:03 | Outpatient (BNVA) | payer MEDICARE, MEDICAID, SELFPAY | PROVIDERS: PCP Nurse Practitioner; Visit Provider Nurse Practitioner Family | DX: E11.65 Type 2 diabetes mellitus with hyperglycemia (principal); E78.2 Mixed hyperlipidemia | CPT/HCPCS: 80053; 80061; 83036; 84443; 85025 ==

== ENCOUNTER → 2021-09-01 12:45 | Outpatient (BNVA) | payer MEDICARE, MEDICAID, SELFPAY | PROVIDERS: PCP Nurse Practitioner; Visit Provider Nurse Practitioner | DX: F20.9 Schizophrenia, unspecified (principal); F33.9 Major depressive disorder, recurrent, unspecified; F10.20 Alcohol dependence, uncomplicated; F17.210 Nicotine dependence, cigarettes, uncomplicated | CPT/HCPCS: 99214 ==

== ENCOUNTER → 2021-11-23 09:32 | Outpatient (BNVA) | payer MEDICARE, MEDICAID, SELFPAY | PROVIDERS: PCP Nurse Practitioner; Visit Provider Nurse Practitioner Family | DX: E11.65 Type 2 diabetes mellitus with hyperglycemia (principal); E78.2 Mixed hyperlipidemia; E11.40 Type 2 diabetes mellitus with diabetic neuropathy, unspecified; I10 Essential (primary) hypertension; L40.9 Psoriasis, unspecified; L71.9 Rosacea, unspecified; F20.9 Schizophrenia, unspecified; F33.9 Major depressive disorder, recurrent, unspecified; F10.20 Alcohol dependence, uncomplicated; G40.909 Epilepsy, unspecified, not intractable, without status epilepticus | CPT/HCPCS: 80053; 80061; 83036; 84443; 85025 ==

== ENCOUNTER 2021-12-16 15:23 | Inpatient (IN) | payer MEDICARE, MEDICAID, SELFPAY ==
[2021-12-16 15:30] VITALS: BP 154/108; PULSE 122; RESP 18; TEMP 36.6; O2SAT 94
--- NOTE | 2021-12-16 15:51 | XRR_ITS ---
PROCEDURE INFORMATION: Exam: XR Chest Exam date and time: 12/16/2021 3:57 PM Age: 46 years old Clinical indication: Screening exam; Other screening; Additional info: Psych clearance TECHNIQUE: Imaging protocol: Radiologic exam of the chest. Views: 1 view. COMPARISON: CR XR chest 1V portable [id number] 03/02/2020 10:41 AM FINDINGS: Lungs: Unremarkable. No consolidation. Pleural spaces: Unremarkable. No pleural effusion. No pneumothorax. Heart/Mediastinum: Unremarkable. No cardiomegaly. Bones/joints: Unremarkable. XR/XR chest 1V portable [id number] IMPRESSION: No acute findings.
--- NOTE | 2021-12-16 15:51 | ECG_ITS ---
[facility] Test Date: 2021-12-16 Pat Name: Reinaldo Flores Department: Room: Gender: Male General Operator: : 1975 Requested By: Mary Sánchez Order Number: [id number] Herrera MD: Skip Abdul M.D. Measurements Intervals [place] Rate: 112 P: 44 SD: 136 QRS: -5 QRSD: 98 T: 24 QT: 337 QTc: 462 Interpretive Statements SINUS TACHYCARDIA Compared to ECG 11/03/2015 01:07:04 No significant changes Electronically Signed On 12-17-2021 23:36:49 CDT by Skip Abdul M.D. [email or web address] [id number]
--- NOTE | 2021-12-16 15:53 | W.ED.GENADLT ---
HPI - General Adult General: Chief complaint: Psychiatric Symptoms Stated complaint: SI Time Seen by Provider: 12/16/21 15:50 History of Present Illness: HPI: [46]yo patient w/ hx of depression and schizophrenia presneting for SI with plan. Patient tells me that yesterday she was planning to blow my head off. He tells me he has history of schizophrenia was hearing voices to hurt himself. Patient tells me that he does not have any homicidal ideation on arrival, the patient is AAOx3 and cooperative with my evaluation. No focal complaints of chest pain, shortness of breath, palpitations, N/V, focal GI/ complaints. No complaints of hallucinations. Onset: acute on chronic Duration: ongoing Location: home Severity: severe Associated symptoms: Deny chest pain, dyspnea, nausea, rash, palpitations or vomiting Review of Systems Const: Denies: fever(s) or chills Eyes: Denies: change in vision ENMT: Denies: mouth pain Card: Denies: chest pain or palpitations Resp: Denies: dyspnea or non-productive cough GI: Denies: abdominal pain, nausea, vomiting or diarrhea : Denies: dysuria Musc: Denies: extremity pain Skin/Breast: Denies: rash or new lesions Neuro: Denies: weakness in extremities Psych: Reports: depression, auditory hallucinations and suicidal ideation Len/Lymph: Denies: easy bruising PFSH ED PFSH: Medical History Acne rosacea Alcohol dependence, uncomplicated Bipolar disorder Controlled diabetes mellitus with hyperglycemia Current smoker DM neuropathy, painful Essential (primary) hypertension History of alcohol abuse daily use of hard liquor History of coronary artery disease History of CVA (cerebrovascular accident) 2009 Right side weakness due to a bleed History of memory loss History of schizophrenia Mixed hyperlipidemia Nicotine dependence, cigarettes, uncomplicated Psoriasis Psychiatric care Seizure disorder Surgical History History of colonoscopy with polypectomy 2016 History of esophagogastroduodenoscopy (EGD) History of eye surgery History of heart artery stent Family History Other Dementia Diabetes Hypertension Lung disease Psychiatric illness Stroke Denies family history of Chronic kidney disease (CKD) Anesthesia complication Bleeding disorder Cancer Social History Smoking and tobacco status: current some day smoker cigarettes Packs smoked per day: 2.5 Years cigarettes smoked: 38 Second hand smoke exposure: Yes Smoking risk assessment/counseling performed?: Yes Alcohol intake: current Alcohol intake frequency: 0-2 Drinks per Day Alcohol type: hard liquor Desire information about alcohol rehabilitation?: No Counseling given: No Desire information about substance/drug rehabilitation?: No Counseling given: No Adopted: No Caregiver/support person: Yes Lives independently: No Household members: friend(s) and caregiver Housing: Manufactured/Mobile home Marital status: Number of children: 8 service: No Current occupational status: disabled Pets and animals: Yes History of recent travel: Yes Details: month an a half ago Out of state: Yes Current gender identity: Male Physical Exam Const: COMMON NORMALS: alert HENMT: COMMON NORMALS: atraumatic HEAD & SCALP: atraumatic MOUTH: moist mucous membranes not abnormal Eye: COMMON NORMALS: EOMs intact bilaterally and conjunctivae normal CONJUNCTIVA: Yes conjunctivae normal Neck/C-Spine: COMMON NORMALS: full ROM and supple Resp: COMMON NORMALS: normal respiratory effort and clear to auscultation bilaterally AUSCULTATION: clear to auscultation bilaterally Cardio: RATE: tachycardic GI: COMMON NORMALS: Soft to palpation and non-tender PALPATION: Yes Soft to palpation Extremity: COMMON NORMALS: full ROM Neuro: SENSORIUM/ORIENTATION: Yes alert MOTOR EXAM: No Abnormal motor strength present and Other motor observations present (no focal motor deficits) Psych: COMMON NORMALS: speech normal SPEECH: Yes normal speech MOOD & AFFECT: Yes euthymic mood Course Vital Signs: Vital signs: Vital Signs Temperature 97.9 F 12/18/21 06:00 Pulse Rate 84 12/18/21 06:00 Respiratory Rate 18 12/18/21 14:00 Blood Pressure 148/92 12/18/21 06:00 Pulse Oximetry 95 12/18/21 06:00 MDM - General Adult Medical Decision Making [46]yo patient w/ hx of depression and schizophrenia presenting for SI with plan and auditory hallucination. HDS, exam within normal limit Thoughts are linear and organized, and the patient has no AH/VH, or HI. Clinically the patient displays no overt toxidrome; they are well appearing, with low suspicion for toxic ingestion given history and exam. Symptoms unlikely 2/2 anemia, hypothyroidism, infection, or ICH. Workup: CBC, CMP, Lipase, salicylate/tylenol, UDS Lab findings: wnl On reassessment, labs and workup wnl. Patient is hemodynamically stable with no acute medical complaints. Case discussed with psychiatric provider Dr. Mahan at [facility] psych inpatient with recommendation for admission Disposition: Psych Lab Data : 12/16/21 16:00 12/16/21 16:00 Radiology Impressions Chest X-Ray 12/16/21 15:51 IMPRESSION: No acute findings. Laboratory Results WBC 7.2 10^3/uL (4.0-10.0) 12/16/21 16:00 RBC 5.16 10^6/uL (4.1-5.3) 12/16/21 16:00 Hgb 17.2 g/dL (11.7-16.6) H 12/16/21 16:00 Hct 50.6 % (42.0-52.0) 12/16/21 16:00 MCV 98.1 fl (80-94) H 12/16/21 16:00 MCH 33.3 pg (28.0-34.0) 12/16/21 16:00 MCHC 34.0 g/dL (30.0-36.0) 12/16/21 16:00 RDW 11.9 % (12.1-15.1) L 12/16/21 16:00 Plt Count 250 10^3/cmm (130-400) 12/16/21 16:00 MPV 10.6 fL (7.4-10.4) H 12/16/21 16:00 Neut % (Auto) 59.8 % 12/16/21 16:00 Lymph % (Auto) 26.0 % 12/16/21 16:00 [place] % (Auto) 6.0 % 12/16/21 16:00 Eos % (Auto) 6.5 % 12/16/21 16:00 Baso % (Auto) 1.4 % 12/16/21 16:00 Neut # (Auto) 4.30 10^3/uL (1.8-7.7) 12/16/21 16:00 Lymph # (Auto) 1.9 10^3/uL (0.8-4.8) 12/16/21 16:00 [place] # (Auto) 0.4 10^3/uL (0.2-0.9) 12/16/21 16:00 Eos # (Auto) 0.5 10^3/uL (0.0-0.8) 12/16/21 16:00 Baso # (Auto) 0.1 10^3/uL (0.0-0.1) 12/16/21 16:00 Nucleated RBC % (auto) 0 % 12/16/21 16:00 Nucleated RBCs # 0.0 /100WBC 12/16/21 16:00 Sodium 137 mmol/L (136-145) 12/16/21 16:00 Potassium 3.9 mmol/L (3.5-5.1) 12/16/21 16:00 Chloride 99 mmol/L (98-107) 12/16/21 16:00 Carbon Dioxide 20 mmol/L (22-29) L 12/16/21 16:00 Anion Gap 21.9 (5-19) H 12/16/21 16:00 BUN 6 mg/dL (6-20) 12/16/21 16:00 Creatinine 0.6 mg/dL (0.7-1.2) L 12/16/21 16:00 GFR Calculation 143.8 mL/min (90-130) H 12/16/21 16:00 Glucose 141 mg/dL (65-115) H 12/16/21 16:00 Calculated Osmolality 284 mOsm/kg (285-295) L 12/16/21 16:00 Calcium 9.0 mg/dL (8.5-10.5) 12/16/21 16:00 Total Bilirubin 0.4 mg/dL (0.15-1.2) 12/16/21 16:00 AST 133 U/L (0-40) H 12/16/21 16:00 ALT 87 U/L (0-41) H 12/16/21 16:00 Alkaline Phosphatase 71 IU/L (40-130) 12/16/21 16:00 Total Protein 8.0 g/dL (6.6-8.7) 12/16/21 16:00 Albumin 4.3 g/dL (3.5-5.2) 12/16/21 16:00 Globulin 3.7 g/dL (1.3-4.6) 12/16/21 16:00 Lipase 75 U/L (13-60) H 12/16/21 16:00 TSH 1.89 uIU/mL (0.27-4.20) 12/16/21 16:00 Free T4 1.13 ng/dL (0.82-1.77) 12/16/21 16:00 Salicylates < 0.3 mg/dL (3-10) L 12/16/21 16:00 Acetaminophen < 5.0 ug/mL (10-30) L 12/16/21 16:00 Ethyl Alcohol 212 mg/dL (0-10) H 12/16/21 16:00 Discharge Plan Discharge Patient Disposition: Admitted As Inpatient Admit Provider: Simeon Mahan Clinical Impression: Depression with suicidal ideation, Auditory hallucinations Condition: Stable Coding Level of Care Code ED Public Accountant for Carlos Fwd Exam Comprehensive
[2021-12-16 16:10] LABS: Basophils # 0.1 10^3/uL (0.0-0.1); Basophils % 1.4 %; Eosinophils # 0.5 10^3/uL (0.0-0.8); Eosinophils % 6.5 %; Hematocrit 50.6 % (42.0-52.0); Hemoglobin 17.2 g/dL (11.7-16.6); Lymphocytes # 1.9 10^3/uL (0.8-4.8); Mean Corpuscular Hemoglobin 33.3 pg (28.0-34.0); Mean Corpuscular Volume 98.1 fl (80-94); Mean Platelet Volume 10.6 fL (7.4-10.4); Monocytes # 0.4 10^3/uL (0.2-0.9); Neutrophils % 59.8 %; Nucleated Red Blood Cells % 0 %; Platelet Count 250 10^3/cmm (130-400); Red Blood Count 5.16 10^6/uL (4.1-5.3); Red Cell Distribution Width 11.9 % (12.1-15.1); White Blood Count 7.2 10^3/uL (4.0-10.0)
[2021-12-16 16:42] LABS: Alanine Aminotransferase 87 U/L (0-41); Albumin Level 4.3 g/dL (3.5-5.2); Alkaline Phosphatase 71 IU/L (40-130); Anion Gap 21.9 (5-19); Aspartate Amino Transferase 133 U/L (0-40); Blood Urea Nitrogen 6 mg/dL (6-20); Carbon Dioxide 20 mmol/L (22-29); Chloride 99 mmol/L (98-107); Globulin 3.7 g/dL (1.3-4.6); Glomerular Filtration Rate 143.8 mL/min (90-130); Glucose 141 mg/dL (65-115); Lipase 75 U/L (13-60); Osmolality Calculated 284 mOsm/kg (285-295); Potassium 3.9 mmol/L (3.5-5.1); Sodium 137 mmol/L (136-145); Thyroid Stimulating Hormone 1.89 uIU/mL (0.27-4.20); Total Bilirubin 0.4 mg/dL (0.15-1.2)
[2021-12-16 17:00] LABS: Acetaminophen < 5.0 ug/mL (10-30); Alcohol Level 212 mg/dL (0-10); Salicylate < 0.3 mg/dL (3-10)
[2021-12-16 17:06] LABS: Free T4 Free Thyroxine 1.13 ng/dL (0.82-1.77)
[2021-12-16 18:00] LABS: SARS Covid-2 Antigen Negative (Negative)
[2021-12-16 18:39] LABS: Amphetamines Screen Urine Negative (Negative); Barbiturates Screen Urine Negative (Negative); Benzodiazepines Screen Urine Negative (Negative); Cocaine Screen Urine Negative (Negative); Opiate Screen Urine Negative (Negative); PCP Screen Urine Negative (Negative); THC Screen Urine Negative (Negative)
[2021-12-16 18:47] LABS: Add Urine Microscopic? YES; Bilirubin Urine Neg (Negative); Blood Urine Neg (Negative); Glucose Urine UA Norm (Normal); Ketones Urine Negative (Negative); Leukocyte Esterase Urine Negative (Negative); Nitrate Urine Negative (Negative); Protein Urine Trace (Negative); Specific Gravity, Urine 1.015 (1.005-1.030); Urine Appearance Clear (CLEAR); Urine Color Yellow (Yellow); Urobilinogen Urine Norm (Negative); pH Urine 6 (5-7)
[2021-12-16 18:49] LABS: Squamous Epithelial Cell Urine RARE /hpf (0-5)
[2021-12-16 18:50] LABS: Add Urine Culture? No
[2021-12-16 19:54] VITALS: BP 164/101; PULSE 125; O2SAT 94
[2021-12-16 20:36] VITALS: BP 138/97; PULSE 111; RESP 18; TEMP 36.7; O2SAT 95
[2021-12-16 21:43] VITALS: BP 138/97; PULSE 111; RESP 18; TEMP 36.7; O2SAT 95
--- NOTE | 2021-12-16 23:27 | PC.NURSE ---
At 2049 WERNERWA completed scoring 18. Extensive education regarding withdrawal and treatment of with patient. Patient stated I don't want any medications, I run out of money and go through withdrawals all the time. Seizure precautions in place.
--- NOTE | 2021-12-17 06:20 | PC.NURSE ---
Nurse reported that patient was refusing vital signs and reported a 10/10 headache with chest pain, tremors, sweating and auditory hallucinations. This nurse discussed with patient that we had medication that would help him not feel so bad, that I am concerned for his health due to his past medical history. He refused vital signs and an ekg. Patient states as long as I'm conscious I'm not taking anything, I just need my whiskey and beer.
[2021-12-17] MEDS: diphenhydrAMINE 50 mg Capsule PO (06:47)
[2021-12-17] MEDS: LORazepam 2 mg Tablet PO (06:48)
--- NOTE | 2021-12-17 06:49 | PC.NURSE ---
Patient given 2 mg po ativan and Benadryl 50 mg po for anxiety and CIWA score.
--- NOTE | 2021-12-17 08:20 | PC.NURSE ---
refused scheduled thiamine, mtv, folic acid, Geodon injection
--- NOTE | 2021-12-17 09:16 | PC.NURSE ---
BEHAVIORS PT IN BED RESTING. BLOCKING AND EVASIVE WITH ASSESSMENT QUESTIONS. PT STATES WHATEVER QUESTIONS YOUR GOING TO ASK ME I'M FINE. SO STOP ASKING ME SHIT. PT STATES HE IS HERE DUE TO HAVING A DREAM ABOUT SUICIDE AND IT UPSET HIS NEW , NOW HE IS HERE AND HE IS NOT HAPPY ABOUT IT. PT REFUSED ALL MEDICATIONS THIS AM WELL. ALL QUESTIONS ANSWERED AND SUPPORT VOICED.
[2021-12-17] MEDS: nicotine 4 mg lozenge MUCOUS MEM ×2 (11:59→18:30)
[2021-12-17] MEDS: diazePAM 5 mg Tablet 10 MG PO (13:32)
--- NOTE | 2021-12-17 13:35 | PC.NURSE ---
CIWA/MEDICATION PT SCORED 13 ON CIWA PROTOCOL. PT REFUSED TO TAKE ATIVAN FOR WITHDRAWAL SYMPTOMS. NEW ORDERS WERE PLACED BY DR. COY FOR VALIUM 10 MG ONE TIME DOSE. PT DID DECLINE TO TAKE THE MEDICATION BUT 20 MINUTES LATER CAME BACK TO THE NURSES STATION AND REQUESTED TO TAKE THE VALIUM. VALIUM WAS GIVEN ORDERED FOR WITHDRAWAL SYMPTOMS.
[2021-12-17 14:00] VITALS: BP 123/80; PULSE 81; RESP 16; O2SAT 96
--- NOTE | 2021-12-17 15:15 | P.NPUHP_ITS ---
Providers/Chief Complaint Admitting Physician: Simeon Mahan MD Primary Care Provider: YENI Martel Chief Complaint: Suicidal ideation HPI NPU History of Present Illness Reinaldo Flores is a 46 year old male with a history of Schizophrenia and Alcohol Dependence admitted on 96 hour hold as he had reported that he made a decision to discuss his dream with someone and it was blown out of proportion. He reports that he was unable to leave the emergency department because he would not contract for safety and give up his guns. Reinaldo reports that his was scared about something he said and it was reported in [facility] that Reinaldo had reported thoughts to blow his head off with a gun. He reports significant alcohol use for all my life. and reports drinking a 1/2 gallon of alcohol daily for several years. He reports past history of schizophrenia and reports that the voices have been controlled by his medication and reports that he has had violent thoughts to hurt others in the past. He endorsed a history of alcohol withdrawal symptoms, include seizures, blackouts and shakes. Past Psychiatric History: Is notable for multiple inpatient psychiatric hospitalizations. He reports last being admitted at [facility] in [facility] for inpatient he reports history of alcohol dependence, schizophrenia and traumatic brain injury. He was last seen at his outpatient appointment 3 days ago at [facility] in [facility]Followed by Dr. Bustamante in [facility]. Hx of multiple psychiatric medication trials: zyprexa, valium, campral, naltrexone, Current medications: invega sustenna IM, Substance abuse hx: reports misuse of stimulants in the past but reports active use of alcohol for over 20 years with longest period of abstinence was 1 year. 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 Meds NPU Home Medications Medication Instructions Recorded Confirmed Last Taken Type aspirin 81 mg tablet,delayed 81 mg PO DAILY 30 Days #30 tab 05/13/20 12/14/21 Unknown Rx release benztropine 1 mg tablet 1 mg PO BID #60 tab 08/11/21 12/14/21 Unknown Rx multivitamin-ferrous 1 tab PO DAILY 08/11/21 12/14/21 Unknown History fumarate-folic acid 18 mg-400 mcg tablet paliperidone 6 mg tablet,extended 6 mg PO QAM #30 tab 08/11/21 12/14/21 Unknown Rx release 24 hr (Invega) paliperidone palmitate 234 mg/1.5 234 mg (1.5 mL) IM Q30D 30 Days #1 08/11/21 12/14/21 Unknown Rx mL intramuscular syringe (Invega ml Sustenna) thiamine HCl (vitamin B1) 100 mg 100 mg PO DAILY 08/11/21 12/14/21 Unknown History tablet honey 100 % topical paste 1 applic TOPICAL BID #103 ml 08/21/21 12/14/21 Unknown Rx (MediHoney (honey)) levetiracetam 1,000 mg tablet 1,000 mg PO BID #60 tab 08/21/21 12/14/21 Unknown Rx (Keppra) citalopram 40 mg tablet (Celexa) 40 mg PO DAILY #30 tab 09/01/21 12/14/21 Unknown Rx paliperidone palmitate 156 mg/mL 156 mg IM Q30D #1 ml 09/01/21 12/14/21 Unknown Rx intramuscular syringe (Invega Sustenna) epinephrine 0.3 mg/0.3 mL 0.3 mg (0.3 mL) IM Q4H PRN #2 ea 09/14/21 12/14/21 Unknown Rx injection, auto-injector (EpiPen 2-Clarke) diabetic shoes with inserts #1 ea 09/15/21 12/14/21 Unknown Rx blood sugar diagnostic (Blood #100 ea 11/23/21 12/14/21 Unknown Rx Glucose Test) blood-glucose meter #1 ea 11/23/21 12/14/21 Unknown Rx gabapentin 400 mg capsule 400 mg PO TID 30 Days #90 cap 11/23/21 12/14/21 Unknown Rx lancets 31 gauge #100 ea 11/23/21 12/14/21 Unknown Rx lisinopril 30 mg tablet 30 mg PO DAILY 90 Days #90 tab 11/23/21 12/14/21 Unknown Rx metformin 500 mg tablet,extended 500 mg PO BID 90 Days #180 tab 11/23/21 12/14/21 Unknown Rx release 24 hr metronidazole 0.75 % lotion 1 applic TOPICAL BID #59 ml 11/23/21 12/14/21 Unknown Rx (MetroLotion) triamcinolone acetonide 0.1 % 1 applic TOPICAL BID #15 g 11/23/21 12/14/21 Unknown Rx topical cream Allergies Allergy/AdvReac Type Severity Reaction Status Date / Time clozapine [From Clozaril] AdvReac Severe Lowered Verified 12/16/21 15:32 his WBC he says divalproex sodium AdvReac Severe swelling Verified 12/16/21 15:32 [From Depakote] haloperidol [From Haldol] AdvReac Severe swelling Verified 12/16/21 15:32 nitroglycerin AdvReac Severe Stopped Verified 12/16/21 15:32 heart Bee stings Allergy Severe Swelling & Uncoded 12/16/21 15:32 breathing problems, Anaphylactic shock PFSH NPU PFSH: Medical History Acne rosacea Alcohol dependence, uncomplicated Bipolar disorder Controlled diabetes mellitus with hyperglycemia Current smoker DM neuropathy, painful Essential (primary) hypertension History of alcohol abuse daily use of hard liquor History of coronary artery disease History of CVA (cerebrovascular accident) 2009 Right side weakness due to a bleed History of memory loss History of schizophrenia Mixed hyperlipidemia Nicotine dependence, cigarettes, uncomplicated Psoriasis Psychiatric care Seizure disorder Surgical History History of colonoscopy with polypectomy 2015 History of esophagogastroduodenoscopy (EGD) History of eye surgery History of heart artery stent Family History Other Dementia Diabetes Hypertension Lung disease Psychiatric illness Stroke Denies family history of Chronic kidney disease (CKD) Anesthesia complication Bleeding disorder Cancer Social History Smoking and tobacco status: current some day smoker cigarettes Packs smoked per day: 2.5 Years cigarettes smoked: 38 Second hand smoke exposure: Yes Smoking risk assessment/counseling performed?: Yes Alcohol intake: current Alcohol intake frequency: 0-2 Drinks per Day Alcohol type: hard liquor Desire information about alcohol rehabilitation?: No Counseling given: No Desire information about substance/drug rehabilitation?: No Counseling given: No Adopted: No Caregiver/support person: Yes Lives independently: No Household members: friend(s) and caregiver Housing: Manufactured/Mobile home Marital status: Number of children: 8 service: No Current occupational status: disabled Pets and animals: Yes History of recent travel: Yes Details: month an a half ago Out of state: Yes Current gender identity: Male Mental Status Exam MSE Comments: This is an obese white male with hospital scrubs on with adequate grooming and eye contact.? No abnormal involuntary motor movements. ? Cooperative with exam, in no acute distress.? Speech was normal in regards to rate, rhythm and prosody, ? Mood described as pretty upset , affect was intense and irritable.? Thought process appeared linear logical and organized.? Thought content: Patient denied suicidal or homicidal ideation, there were no clear delusions reported or noted, he denied any auditory or visual hallucinations. He had minimized any active thoughts to hurt self or others. ? Attention and concentration appeared intact. ed.? The alert and oriented x3.? Insight and judgment was limited as he was refusing to take any medications to help him particularly for alcohol withdrawal because he did not want to be on the unit. Vitals/I&O/Wt Last Vital Signs Temp 98.1 F 12/16/21 21:43 Pulse 81 12/17/21 14:00 Resp 16 12/17/21 14:00 BP 123/80 12/17/21 14:00 Pulse Ox 96 12/17/21 14:00 Weight last 48 hrs Weight 97.522 kg Data NPU : 12/16/21 16:00 12/16/21 16:00 A&P Assessment and plan (1) Depression with suicidal ideation: Status: Acute (2) Auditory hallucinations: Status: Acute (3) Diabetic feet: Status: Acute (4) Alcohol dependence, uncomplicated: Status: Acute (5) Alcohol use disorder, severe, dependence: Status: Chronic (6) Schizophrenia: Status: Acute Qualifiers: Schizophrenia type: unspecified Qualified Code(s): F20.9 - Schi zophrenia, unspecified (7) Seizure disorder: Status: Chronic Plan 46 year old white male with traumatic brain injury, schizophrenia and alcohol dependence admitted with inability to contract for safety with reports of suicidal ideation and violent threats. Plan: 1. CIWA scale -ativan for withdrawal or valium if patient refused ativan 2. engage patient in milieu/group/individual therapy 3. Will consider addition of antipsychotic if necessary as patient has over 24 days until 3rd shot of Invega sustenna 4. Therapeutic observations, 15 minute checks. Involuntary Hold Information 96 Hour Hold: 96 Hour Involuntary Admission: Yes 96 Hour Hold Ending Date: 12/21/21 96 Hour Hold Ending Time: 00:01 Attestations NPU Medical Necessity Statement*: Inpatient hospitalization is medically necessary and the clinically appropriate intervention at this time with patient expected to stay at least 2 midnights. We will monitor medications and make changes as indicated with length of stay 4-6 days. ? Coding Level of Care Code New Pt Acute Marketing Planning Manager for Carlos Armstrong Patient Type New History Problem Focused Exam Problem Focused Medical Decision Making Straight Forward Diagnoses Depression with suicidal ideation F32.A; R45.851 Auditory hallucinations R44.0 Diabetic feet E11.8 Alcohol dependence, uncomplicated F10.20 Alcohol use disorder, severe, dependence F10.20 Schizophrenia F20.9 Schizophrenia type: unspecified Seizure disorder G40.909
[2021-12-17 21:01] VITALS: RESP 15
[2021-12-18 06:00] VITALS: BP 148/92; PULSE 84; RESP 16; TEMP 36.6; O2SAT 95
[2021-12-18] MEDS: nicotine 4 mg lozenge MUCOUS MEM ×4 (07:54→18:21)
[2021-12-18] MEDS: thiamine 100 mg Tablet PO (07:54)
[2021-12-18] MEDS: multivitamin therapeutic Tablet 1 TAB PO (07:54)
[2021-12-18] MEDS: folic acid 1 mg Tablet PO (07:54)
[2021-12-18] MEDS: OLANZapine 5 mg ODT PO ×2 (07:55→20:39)
[2021-12-18] MEDS: LORazepam 2 mg Tablet PO (07:55)
--- NOTE | 2021-12-18 07:56 | PC.NURSE ---
Addendum entered by Maite Diaz LPN 12/18/21 09:16: ciwa now at a score of 2 Original Note: CIWA SCORE 11--ATIVAN 2 MG GIVEN PO PER PROTOCOL
--- NOTE | 2021-12-18 07:56 | PC.NURSE ---
PRN ZYPREXA ZYDIS 5 MG GIVEN PO PER PT C/O HEARING VOICES
--- NOTE | 2021-12-18 10:09 | PC.NURSE ---
[facility] PT AGITATED THIS AM AND WITHDRAWING FROM ALCOHOL. PT WAS GIVEN ATIVAN ORDERED PER [facility] PROTOCOL. PT STATES THE VALIUM HE RECEIVED YESTERDAY WAS MORE HELPFUL WITH HIS WITHDRAWAL SYMPTOMS. DR. COY WAS NOTIFIED OF ABOVE. PT CONTINUES TO BE ANXIOUS, PACING AND ROCKING AT TIME.
[2021-12-18] MEDS: diazePAM 5 mg Tablet 10 MG PO ×2 (11:27→16:30)
--- NOTE | 2021-12-18 12:44 | PC.NURSE ---
[facility] PT CONTINUES TO BE ANXIOUS EVEN AFTER VALIUM 10 MG NOW. PT IS PACING, C/O HEADACHE, SWEATING, AGITATION AND AGITATED AND PACING. PT REFUSES TO TAKE ATIVAN. NOTIFIED DR. COY OF ABOVE, NEW ORDERS RECEIVED TO GIVE VALIUM 10 MG PO NOW. ORDERS PLACED, NOTIFIED PT OF NEW ORDER. WILL CONTINUE TO MONITOR.
[2021-12-18 14:00] VITALS: RESP 18
--- NOTE | 2021-12-18 14:16 | P.NPUPN_ITS ---
Subjective NPU Subjective: 46 year old white male with TBI, schizophrenia, and alcohol dependence admitted on 96 hour hold after making threats to harm his and reportedly making homicidal threats to others with an inability to contract for safety. Patient appeared to be having withdrawal symptoms from alcohol and sat in his room and refused ativan stating that the staff was responsible for him missing appointments for getting a scan of his chest for an evaluation of pancreatic problems as well as for missing an appointment for cataract surgery. Patient reports that his has left the home and is refusing to talk to him but he reports that he is not a threat to others and should be allowed to go home and drink alcohol. Mental Status Exam 2 MSE Comments: Casually dressed surly white male appeared stated age, reported mood as fine. Affect: mood incongruent and irritable. TP: circumstantial and illogical with excess blame placed on others for his hospitalization. He did not appear to be responding to internal stimuli and no clear evidence of delusional thinking but general mistrust was present. Gait: wnl, hygiene: poor, Attention: fair, Insight: minimal Judgment: limited. Vitals/I&O/Wt Last Vital Signs Temp 97.9 F 12/18/21 06:00 Pulse 84 12/18/21 06:00 Resp 18 12/18/21 14:00 BP 148/92 12/18/21 06:00 Pulse Ox 95 12/18/21 06:00 Data NPU : 12/16/21 16:00 12/16/21 16:00 A&P Assessment and plan (1) Auditory hallucinations: Status: Acute (2) Alcohol dependence, uncomplicated: Status: Acute (3) Schizophrenia: Status: Acute Qualifiers: Schizophrenia type: unspecified Qualified Code(s): F20.9 - Schizophrenia, unspecified Plan Plan: 1. continue to monitor for alcohol withdrawal and give Diazepam if patient refuses ativan for CIWA scale 2. Will attempt to contact outpatient providers for further collateral information and help facilitate transition back home. Involuntary Hold Information 96 Hour Hold: 96 Hour Involuntary Admission: Yes 96 Hour Hold Ending Date: 12/21/21 96 Hour Hold Ending Time: 00:01 Attestations NPU Medical Necessity Statement*: He continues to require inpatient hospitalizati on, likely hospitalization for 2-4 days. Coding Level of Care Code Established Pt Acute Therapist Physical for Carlos Fwd Patient Type Established History Problem Focused Exam Problem Focused Medical Decision Making Straight Forward Diagnoses Auditory hallucinations R44.0 Alcohol dependence, uncomplicated F10.20 Schizophrenia F20.9 Schizophrenia type: unspecified
--- NOTE | 2021-12-18 14:20 | PC.NURSE ---
BEHAVIOR/REFUSALS KILN LOADER ATTEMPTED TO DO VITALS AT 1400. PT REFUSED TO HAVE VITALS COMPLETED. PT STATES, YOU'RE NOT DOING MY VITALS AND AND I'M NOT EATING. ALL I'M GOING TO DO IS DRINK WATER AND COFFEE, I'M NOT TAKING ANY MEDS OR NOTHING. PT EDUCATED ON THE IMPORTANCE OF TAKING MEDICATIONS AND HAVING VITALS COMPLETED WHILE ALCOHOL WITHDRAW IS OCCURRING. PT STATES HE DID NOT CARE AND CONTINUED TO ROCK BACK IN FORTH WHILE SITTING ON MAT IN FLOOR. ALL QUESTIONS ANSWERED AND SUPPORT VOICED.
--- NOTE | 2021-12-18 14:52 | PC.NURSE ---
REFUSED VITALS. WILL CONTINUE TO MONITOR.
--- NOTE | 2021-12-18 16:19 | PC.NURSE ---
NEW ORDER ORDER PLACED FOR VALIUM EARLIER IN SHIFT AND REFUSED. PT DID AGREE TO TAKE VALIUM AT 1600. PHARMACY WAS NOTIFIED TO FILL VALIUM DUE TO HAVE ONE 5MG TAB. NEW ORDER WAS PLACED DUE TO OLD ORDER EXPIRING. ORDER FOR VALIUM 10 MG PLACED IN Fl[facility]. MED NURSE TO GIVE ORDERED.
[2021-12-18 20:16] VITALS: BP 140/99; PULSE 106; RESP 18; O2SAT 96
[2021-12-18] MEDS: hyDROXYzine 25 mg Capsule 50 MG PO (20:39)
[2021-12-19 06:00] VITALS: BP 163/107; PULSE 104; RESP 18; TEMP 36.6; O2SAT 93
[2021-12-19] MEDS: nicotine 4 mg lozenge MUCOUS MEM ×4 (07:06→13:28)
[2021-12-19] MEDS: folic acid 1 mg Tablet PO (08:45)
[2021-12-19] MEDS: multivitamin therapeutic Tablet 1 TAB PO (08:45)
[2021-12-19] MEDS: thiamine 100 mg Tablet PO (08:45)
--- NOTE | 2021-12-19 11:01 | PC.NURSE ---
CONTINUES TO SIT ON FLOOR MAT CROATIAN STYLE WHILE ROCKING BACK AND FORTH. PT CONTINUES TO BE ANXIOUS BUT DENIES THAT HE IS GOING THROUGH WITHDRAWS AT THIS TIME. PT IS DEMANDING HE BE RELEASED AND HE HAS NO NEED TO BE HERE. EDUCATION PROVIDED ON DISCHARGE PROCESS. DENIES PAIN. DENIES SI/HI AND AVH AT THIS TIME. SUPPORT VOICED.
--- NOTE | 2021-12-19 12:38 | W.PM.NPUPNS ---
Subjective NPU Subjective: 46 year old white male with TBI, schizophrenia, and alcohol dependence admitted on 96 hour hold after making threats to harm his and reportedly making homicidal threats to others with an inability to contract for safety.? Patient has been residing in his room on the floor choosing to meditate, he reports that his had returned to their living situation and reports that she may take him back. He had no episodes of aggression. He had continued to report no alcohol withdrawal symptoms. He had received Valium 10mg yesterday and reported feeling calmer. He continues to complain about various issues that this involuntary hospitalization has prevented him from completing on the outside. Mental Status Exam MSE Comments: Casually dressed white male appeared stated age, reported mood as okay. .? Affect: mood incongruent and irritable. His impulse control appeared fair, ? TP: illogical with excess blame placed on others for his hospitalization. He did not appear to be responding to internal stimuli and no clear evidence of delusional thinking but general mistrust was present.? Gait: wnl, hygiene: poor, Attention: fair, Insight: feeble Judgment: limited as he minimized the effect that chronic drinking had upon both his physical health and relationships. He denies any homicidal or suicidal ideation. Vitals/I&O/Wt Last Vital Signs Temp 98.7 F 12/19/21 14:00 Pulse 117 H 12/19/21 14:00 Resp 20 H 12/19/21 14:00 BP 143/100 12/19/21 14:00 Pulse Ox 95 12/19/21 14:00 Data NPU : 12/16/21 16:00 12/16/21 16:00 A&P Assessment and plan (1) Depression with suicidal ideation: Status: Acute (2) Auditory hallucinations: Status: Acute (3) Schizophrenia: Status: Acute Qualifiers: Schizophrenia type: unspecified Qualified Code(s): F20.9 - Schizophrenia, unspecified (4) Alcohol dependence, uncomplicated: Status: Acute (5) Traumatic brain injury: Status: Acute Plan Plan: 1. continue to monitor for alcohol withdrawal and give Diazepam if patient refuses ativan for CIWA scale 2. Continue to monitor for safety here on 96 hour hold and determine need for continued stay. He is refusing any rehabilitation program for his alcohol dependence. Involuntary Hold Information 96 Hour Hold: 96 Hour Involuntary Admission: Yes 96 Hour Hold Ending Date: 12/21/21 96 Hour Hold Ending Time: 00:01 Attestations NPU Medical Necessity Statement*: He continues to require inpatient hospitalization, likely hospitalization for 2-4 days.? 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
[2021-12-19 14:00] VITALS: BP 143/100; PULSE 117; RESP 20; TEMP 37.1; O2SAT 95
[2021-12-19 19:51] VITALS: BP 149/84; PULSE 81; RESP 22; TEMP 37.2; O2SAT 95
[2021-12-19] MEDS: hyDROXYzine 25 mg Capsule 50 MG PO (21:11)
[2021-12-19] MEDS: trazodone 50 mg Tablet PO (21:11)
--- NOTE | 2021-12-19 21:54 | PC.NURSE ---
PRN MEDS PT GIVEN 50MG TRAZADONE FOR INSOMNIA, AND 50 MG OF VISTARIL FOR STATED ANXIETY, WILL CONTINUE TO MONITOR.
[2021-12-20] MEDS: acetaminophen 325 mg Tablet 650 MG PO (05:51)
--- NOTE | 2021-12-20 05:54 | PC.NURSE ---
Patient at the nurses station voicing c/o right shoulder pain rated 8. Tylenol 650 mg po given for this.
[2021-12-20 06:00] VITALS: BP 141/94; PULSE 80; RESP 17; TEMP 36.4; O2SAT 94
[2021-12-20] MEDS: thiamine 100 mg Tablet PO (07:41)
[2021-12-20] MEDS: folic acid 1 mg Tablet PO (07:41)
[2021-12-20] MEDS: multivitamin therapeutic Tablet 1 TAB PO (07:41)
[2021-12-20] MEDS: nicotine 4 mg lozenge MUCOUS MEM ×4 (07:41→16:03)
[2021-12-20 11:40] LABS: Glucose Point of Care 129 mg/dL (70-110)
--- NOTE | 2021-12-20 11:49 | DCPLANNER ---
IMM completed on 12/20/21 @ 1124. Pt was given a copy of rights and he stated he understood rights.
[2021-12-20 14:00] VITALS: BP 147/100; PULSE 95; RESP 18; TEMP 36.6; O2SAT 95
--- NOTE | 2021-12-20 15:28 | W.PM.NPUDCS ---
Diagnoses at Discharge Discharge Diagnosis (1) Depression with suicidal ideation: Status: Resolved (2) Auditory hallucinations: Status: Resolved (3) Schizophrenia: Status: Chronic Qualifiers: Schizophrenia type: unspecified Qualified Code(s): F20.9 - Schizophrenia, unspecified (4) Alcohol dependence, uncomplicated: Status: Resolved (5) Traumatic brain injury: Status: Acute Reason for Visit Reason for Visit: Suicidal ideation Brief History: Reinaldo Flores is a 46 year old male with a history of Schizophrenia and Alcohol Dependence admitted on 96 hour hold as he had reported that he made a decision to discuss his dream with someone and it was blown out of proportion.? He reports that he was unable to leave the emergency department because he would not contract for safety and give up his guns.? Reinaldo reports that his was scared about something he said and [facility] had reported thoughts to blow his head off with a gun.? He reports significant alcohol use for all my life. and reports drinking a 1/2 gallon of alcohol daily for several years.? He reports past history of schizophrenia and reports that the voices have been controlled by his medication and reports that he has had violent thoughts to hurt others in the past. ? He endorsed a history of alcohol withdrawal symptoms, include seizures, blackouts and shakes. ? Past Psychiatric History: Is notable for multiple inpatient psychiatric hospitalizations.? He reports last being admitted at [facility] in [facility] for inpatient he reports history of alcohol dependence, schizophrenia and? traumatic brain injury.? He was last seen at his outpatient appointment 3 days ago at [facility] in [facility]Followed by Dr. Bustamante in [facility].? Hx of multiple psychiatric medication trials: zyprexa, valium, campral, naltrexone, Current medications: invega sustenna IM, Substance abuse hx: reports misuse of stimulants in the past but reports active use of alcohol for over 20 years with longest period of abstinence was 1 year.? 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 ? Hospital Course Hospital Course During the hospitalization, patient had routine laboratory studies which were within normal limits except for few outliers. Additionally there was a general medical evaluation which was also within normal limits and revealed no new acute processes. The patient upon arrival to the unit reported that he was not going to take any medications while on the NPU. He had admitted to imbibing 1/2 gallon of alcohol on daily basis and reported that it was his right to do so. He showed signs of alcohol withdrawal on the unit and refused ativan that was provided but was agreeable to receiving valium a few times during the initial time of his hospitalization. He had minimized his history of seizure disorder stating that he was not taking Keppra at home and refused any opportunities to start his home medications stating he was not taking them at home. At the time of discharge, lethality was denied and psychosis was resolving. Mood and anxiety were well managed. Patient endorsed a plan to avoid all drugs of abuse and follow-up with the aftercare recommendations of the treatment team. Patient was evaluated and deemed to be absent credible lethality, and had achieved the maximum benefit from an inpatient hospitalization, so was discharged. The treatment team made no appreciable changes to any of his medications prior to discharge. Involuntary Hold Information 96 Hour Hold: 96 Hour Involuntary Admission: Yes 96 Hour Hold Ending Date: 12/21/21 96 Hour Hold Ending Time: 00:01 Mental Status Exam MSE Comments: Casually dressed? white male appeared stated age, reported mood as good. Affect: mood congruent. His impulse control appeared fair, ? TP:linear and goal directed. He did not appear to be responding to internal stimuli and no clear evidence of delusional thinking Gait: normal, hygiene: fair, Attention: fair, Insight: feeble regarding his alcohol use Judgment: fair, He denies any homicidal or suicidal ideation.? Discharge Data Studies Completed and Pending: Completed Studies During Hospitalization Category Date Time Status XR chest 1V dante ble [id number] Urgent Exams 12/16/21 15:51 Completed Radiology Impressions Chest X-Ray 12/16/21 15:51 IMPRESSION: No acute findings. Laboratory Results WBC 7.2 10^3/uL (4.0- 10.0) 12/16/21 16:00 RBC 5.16 10^6/uL (4.1 -5.3) 12/16/21 16:00 Hgb 17.2 g/dL (11.7-1 6.6) H 12/16/21 16:00 Hct 50.6 % (42.0-52.0 ) 12/16/21 16:00 MCV 98.1 fl (80-94) H 12/16/21 16:00 MCH 33.3 pg (28.0-34. 0) 12/16/21 16:00 MCHC 34.0 g/dL (30.0-3 6.0) 12/16/21 16:00 RDW 11.9 % (12.1-15.1 ) L 12/16/21 16:00 Plt Count 250 10^3/cmm (130 -400) 12/16/21 16:00 MPV 10.6 fL (7.4-10.4 ) H 12/16/21 16:00 Neut % (Auto) 59.8 % 12/16/21 16:00 Lymph % (Auto) 26.0 % 12/16/21 16:00 [place] % (Auto) 6.0 % 12/16/21 16:00 Eos % (Auto) 6.5 % 12/16/21 16:00 Baso % (Auto) 1.4 % 12/16/21 16:00 Neut # (Auto) 4.30 10^3/uL (1.8 -7.7) 12/16/21 16:00 Lymph # (Auto) 1.9 10^3/uL (0.8- 4.8) 12/16/21 16:00 [facility] [place] # (Auto) 0.4 10^3/uL (0.2- 0.9) 12/16/21 16:00 Eos # (Auto) 0.5 10^3/uL (0.0- 0.8) 12/16/21 16:00 Baso # (Auto) 0.1 10^3/uL (0.0- 0.1) 12/16/21 16:00 Nucleated RBC % (a uto) 0 % 12/16/21 16:00 Nucleated RBCs # 0.0 /100WBC 12/16/21 16:00 Sodium 137 mmol/L (136-1 45) 12/16/21 16:00 Potassium 3.9 mmol/L (3.5-5 .1) 12/16/21 16:00 Chloride 99 mmol/L (98-107 ) 12/16/21 16:00 Carbon Dioxide 20 mmol/L (22-29) L 12/16/21 16:00 Anion Gap 21.9 (5-19) H 12/16/21 16:00 BUN 6 mg/dL (6-20) 12/16/21 16:00 Creatinine 0.6 mg/dL (0.7-1. 2) L 12/16/21 16:00 GFR Calculation 143.8 mL/min (90- 130) H 12/16/21 16:00 Glucose 141 mg/dL (65-115 ) H 12/16/21 16:00 POC Glucose 129 mg/dL (70-110 ) H 12/20/21 11:37 Calculated Osmolal ity 284 mOsm/kg (285- 295) L 12/16/21 16:00 Calcium 9.0 mg/dL (8.5-10 .5) 12/16/21 16:00 Total Bilirubin 0.4 mg/dL (0.15-1 .2) 12/16/21 16:00 AST 133 U/L (0-40) H 12/16/21 16:00 ALT 87 U/L (0-41) H 12/16/21 16:00 Alkaline Phosphata se 71 IU/L (40-130) 12/16/21 16:00 Total Protein 8.0 g/dL (6.6-8.7 ) 12/16/21 16:00 Albumin 4.3 g/dL (3.5-5.2 ) 12/16/21 16:00 Globulin 3.7 g/dL (1.3-4.6 ) 12/16/21 16:00 Lipase 75 U/L (13-60) H 12/16/21 16:00 TSH 1.89 uIU/mL (0.27 -4.20) 12/16/21 16:00 Free T4 1.13 ng/dL (0.82- 1.77) 12/16/21 16:00 Urine Color Yellow (Yellow) 12/16/21 17:22 Urine Appearance Clear (CLEAR) 12/16/21 17:22 Urine pH 6 (5-7) 12/16/21 17:22 Ur Specific Gravit y 1.015 (1.005-1.0 30) 12/16/21 17:22 Urine Protein Trace (Negative) 12/16/21 17:22 Urine Glucose (UA) Norm (Normal) 12/16/21 17:22 Urine Ketones Negative (Negati ve) 12/16/21 17:22 Urine Blood Neg (Negative) 12/16/21 17:22 Urine Nitrate Negative (Negati ve) 12/16/21 17:22 Urine Bilirubin Neg (Negative) 12/16/21 17:22 Urine Urobilinogen Norm mg/dL (Negat memo) 12/16/21 17:22 Ur Leukocyte Niru ase Negative (Negati ve) 12/16/21 17:22 Urine RBC None /hpf (0-2) 12/16/21 17:22 Urine WBC None /hpf (0-5) 12/16/21 17:22 Ur Squamous Epith Cells Rare /hpf (0-5) 12/16/21 17:22 Amorphous Sediment Not Reportable 12/16/21 17:22 Urine Bacteria None /hpf (NONE) 12/16/21 17:22 Salicylates < 0.3 mg/dL (3-10 ) L 12/16/21 16:00 Urine Opiates Scre en Negative ng/mL (N egative) 12/16/21 17:22 Acetaminophen < 5.0 ug/mL (10-3 0) L 12/16/21 16:00 Ur Barbiturates Sc reen Negative ng/mL (N egative) 12/16/21 17:22 Ur Phencyclidine S crn Negative ng/mL (N egative) 12/16/21 17:22 Ur Amphetamines Sc reen Negative ng/mL (N egative) 12/16/21 17:22 U Benzodiazepines Scrn Negative ng/mL (N egative) 12/16/21 17:22 Urine Cocaine Scre en Negative ng/mL (N egative) 12/16/21 17:22 U Marijuana (THC) Screen Negative ng/mL (N egative) 12/16/21 17:22 Ethyl Alcohol 212 mg/dL (0-10) H 12/16/21 16:00 SARS-CoV-2 Ag (Rap id) Negative (Negati ve) 12/16/21 17:18 Vitals: Last Vital Signs Temp 98 F 12/20/21 16:05 Pulse 95 12/20/21 16:05 Resp 18 12/20/21 16:05 BP 147/100 12/20/21 16:05 Pulse Ox 95 12/20/21 16:05 Discharge Plan Discharge Patient Disposition: Home Condition: Stable Prescriptions: Continued triamcinolone acetonide 0.1 % cream TOPICAL TID 0RF No Action gabapentin 400 mg capsule 400 mg PO TID 30 Days Qty: 90 0RF lisinopril 30 mg tablet 30 mg PO DAILY 90 Days Qty: 90 0RF levetiracetam [Keppra] 1,000 mg tablet 1,000 mg PO BID Qty: 60 0RF metformin 500 mg tablet extended release 24 hr 500 mg PO BID 90 Days Qty: 180 0RF Discharge Orders: Discharge Order (Routine); Ordered 12/20/21 Ordered By: Simeon Mahan Referrals: Franchesca Escalante PMHNP [Staff Physician] - 01/02/22 11:00 am Joel Rivas FNP-C [Primary Care Provider] - Jewell Hugo FNP-C [Nurse Practitioner] - 12/28/21 8:20 am Discharge Diet: Advance as tolerated Discharge Activity: Resume usual activity Patient Instructions: Opioid Safety Activity Restrictions/Additional Instructions: The patient informed to resume whatever medication regimen he had been prescribed by his primary care physician and mental health provider. There were no changes and he was informed of this on discharge. Discharge Attestations NPU Time Spent in Discharge Care*: less than 30 min Coding Level of Care Code Established Pt Acute Chg FW DC note Patient Type Established History Problem Focused Exam Problem Focused Medical Decision Making Straight Forward Diagnoses Depression with suicidal ideation F32.A; R45.851 Auditory hallucinations R44.0 Schizophrenia F20.9 Schizophrenia type: unspecified Alcohol dependence, uncomplicated F10.20 Traumatic brain injury S06.9X9A
[2021-12-20 16:05] VITALS: BP 147/100; PULSE 95; RESP 18; TEMP 36.6; O2SAT 95
== END 2021-12-20 18:36 | disposition home or self-care (01) | DRG 885 ==
LOC: ER 16:18 → NP 22:45
PROVIDERS: Admitting Provider Psychiatry & Neurology Psychiatry; Emergency Provider Emergency Medicine; PCP Nurse Practitioner; Visit Provider Psychiatry & Neurology Psychiatry
DX: F20.9 Schizophrenia, unspecified (principal); F10.239 Alcohol dependence with withdrawal, unspecified; R45.851 Suicidal ideations; F32.A Depression, unspecified; R45.850 Homicidal ideations; E11.42 Type 2 diabetes mellitus with diabetic polyneuropathy; G40.409 Other generalized epilepsy and epileptic syndromes, not intractable, without status epilepticus; I25.10 Atherosclerotic heart disease of native coronary artery without angina pectoris; I10 Essential (primary) hypertension; F17.210 Nicotine dependence, cigarettes, uncomplicated; Z87.820 Personal history of traumatic brain injury; Z91.14 Patient's other noncompliance with medication regimen; Z95.5 Presence of coronary angioplasty implant and graft; Z81.8 Family history of other mental and behavioral disorders; Y90.7 Blood alcohol level of 200-239 mg/100 ml
CPT/HCPCS: 36416; 71045; 80053; 80306; 80307; 81001; 82962; 83690; 84439; 84443; 85025; 87426; 93005; 97165; 99285; Q0163

== ENCOUNTER 2021-12-26 23:43 | Emergency (ER) | payer MEDICARE, MEDICAID, SELFPAY ==
[2021-12-26 23:44] VITALS: BP 143/105; PULSE 106; RESP 17; TEMP 37.1; O2SAT 93; BMI 32.5
--- NOTE | 2021-12-26 23:59 | ED_ITS ---
HPI - Syncope General: Chief Complaint: Syncope Stated Complaint: Syncope Time Seen by Provider: 12/26/21 23:59 History of Present Illness: Mr. Flores is a 46-year-old gentleman with history of psychiatric illness, hypertension, hyperlipidemia, CAD, tobaccoism, history of stroke and TBI presenting to the emergency department due to syncope. He reports more or less being at his baseline health and around 8 PM started to feel ill. He was sitting at a bar drinking and reports having blurry vision especially in his right eye followed by syncope without prodrome. Per reports he was unresponsive for 15 minutes. He does endorse some superior substernal chest pain with radiation of the neck which feels like pressure. Additionally he endorses right-sided burning paresthesia type feeling. He has baseline weakness which has not significantly changed. No other new reported neuro symptoms. No other specific changes in health, exacerbating, or alleviating factors identified. Onset (ago): minute(s) Duration of episode: 15 Prodromal symptoms: none Witnessed: Yes - by Bystander Context: alcohol use Review of Systems General: Reports: 10 or more systems reviewed and unremarkable except in HPI and below PFSH ED PFSH: Medical History Acne rosacea Alcohol dependence, uncomplicated Bipolar disorder Controlled diabetes mellitus with hyperglycemia Current smoker DM neuropathy, painful Essential (primary) hypertension History of alcohol abuse daily use of hard liquor History of coronary artery disease History of CVA (cerebrovascular accident) 2009 Right side weakness due to a bleed History of memory loss History of schizophrenia Mixed hyperlipidemia Nicotine dependence, cigarettes, uncomplicated Psoriasis Psychiatric care Seizure disorder Surgical History History of colonoscopy with polypectomy 2016 History of esophagogastroduodenoscopy (EGD) History of eye surgery History of heart artery stent Family History Other Dementia Diabetes Hypertension Lung disease Psychiatric illness Stroke Denies family history of Chronic kidney disease (CKD) Anesthesia complication Bleeding disorder Cancer Social History Smoking and tobacco status: current every day smoker cigarettes Packs smoked per day: 2.5 Years cigarettes smoked: 38 Second hand smoke exposure: Yes Smoking risk assessment/counseling performed?: Yes Alcohol intake: current Alcohol intake frequency: 0-2 Drinks per Day Alcohol type: hard liquor Desire information about alcohol rehabilitation?: No Counseling given: No Desire information about substance/drug rehabilitation?: No Counseling given: No Adopted: No Caregiver/support person: Yes Lives independently: No Household members: friend(s) and caregiver Housing: Manufactured/Mobile home Marital status: Number of children: 8 service: No Current occupational status: disabled Pets and animals: Yes History of recent travel: Yes Details: month an a half ago Out of state: Yes Current gender identity: Male Physical Exam Const: COMMON NORMALS: alert GENERAL APPEARANCE: cooperative and well developed HENMT: COMMON NORMALS: normocephalic and atraumatic HEAD & SCALP: normocephalic and atraumatic THROAT: posterior oropharynx normal Eye: COMMON NORMALS: conjunctivae normal CONJUNCTIVA: Yes conjunctivae normal SCLERA: sclerae normal Neck/C-Spine: COMMON NORMALS: supple GENERAL: Yes trachea midline Resp: COMMON NORMALS: normal respiratory effort EFFORT & INSPECTION: Yes able to speak in complete sentences Cardio: COMMON NORMALS: regular rate and regular rhythm RATE: regular rate RHYTHM: regular rhythm GI: COMMON NORMALS: Soft to palpation PALPATION: Yes Soft to palpation and No Tenderness to palpation present (GI) PERCUSSION: normal to percussion Extremity: GENERAL: Yes normal exam except as noted and No edema Neuro: COMMON NORMALS: moves all extremities SENSORIUM/ORIENTATION: Yes alert and No Orientation impaired OTHER: Cranial nerves II through XII intact, patient reports subjective difficulty keeping right eye open however is able to keep it open equally especially with assistance initially. EOMs intact with mild effort dependence with conjugate gaze on the left lateral i.e. patient reports difficulty crossing midline when right eye is the only eye that is open however gaze has no difficulty with bi nocular. Patient reports subjective burning paresthesias upper and lower lower right extremity. Baseline mild weakness though patient is able to lift for bilateral upper and lower extremities. Coordination intact. No other focal deficits appreciated on exam. Psych: COMMON NORMALS: mental status grossly normal and Normal thought process present THOUGHT PROCESS: Normal thought process present Course ED course: - Patient was seen and evaluated by me at bedside - Patient placed on cardiac monitors, IV access obtained - Initial evaluation notable for exam as above. - Labs and xrays personally interpreted by me. EKG shows sinus rhythm with nonspecific ST segment abnormalities. No STEMI. - Fluids, analgesia, and antiemetic given - Labs notable for no leukocytosis, normal hemoglobin. Electrolyte panel with mild evidence of dehydration. Mild transaminitis likely secondary to alcohol misuse. TSH elevated with normal free T4. UA without evidence of infection. Alcohol level 30 with UDS positive for benzos. Negative troponin. - Imaging notable for no lobar consolidation or pneumothorax on chest x-ray. CT head without acute intracranial hemorrhage or mass. CTA negative for LVO. On reassessment patient has additional concerns and additional imaging was felt that he wanted. CT chest with mild evidence interstitial lung disease, CT abdomen pelvis without evidence of acute pathology requiring intervention - Upon serial reexamination after treatment the patient was improved - Based on patient history, evaluation, and testing as interpreted the most likely cause of the patient's condition is syncope of uncertain etiology - The results of ED evaluation were discussed with the patient including pres criptions and/or symptomatic cares (if applicable) including appropriate and responsible use, followup plan, and return precautions. The patient verbalized understanding and felt safe for discharge. - Patient discharged in satisfactory condition. Note: Click bubbles or prepopulated berry in note writing are used for assistance with data collection and billing and are inherently more limited than narrative and other text portions of this note. Please use narrative for additional clinical history and defer to narrative/free test for any case of contradictory information. If information appears in only free text or click bubble it should be considered present or absent as reported. Please contact note television script writer for clarifications of clinical information or contradictory information. MDM is a brief summary, contradictory or erroneous seeming information should be clarified and full note should be reviewed. Vital Signs: Vital signs: Vital Signs Temperature 98.7 F 12/26/21 23:44 Pulse Rate 72 12/27/21 04:00 Respiratory Rate 18 12/27/21 04:00 Blood Pressure 160/90 12/27/21 04:00 Pulse Oximetry 92 12/27/21 04:00 Oxygen Delivery [place] thod 12/26/21 23:44 MDM - Syncope Medical Decision Making 46-year-old gentleman with complex past medical history presenting due to reported syncope at a bar. No new neurodeficits appreciated on exam. Discussed possible disposition options given no clear explanation on ED evaluation. Patient feels safe with discharge and further outpatient evaluation. Strict return precautions given. Medical Records I reviewed the patient's medical records. Lab Data I reviewed the patient's lab results. : 12/26/21 23:50 12/26/21 23:50 Radiology Impressions Cervical Spine CT 12/27/21 00:06 IMPRESSION: No acute findings. Head CT 12/27/21 00:06 IMPRESSION: No acute intracranial abnormality. Chest X-Ray 12/27/21 00:07 IMPRESSION: No acute findings. Head/Neck CTA 12/27/21 01:07 IMPRESSION: 1. No large vessel stenosis or occlusion. 2. Distally hypoplastic non dominant right vertebral artery. 3. origins of the right and left posterior cerebral arteries. IMPRESSION: 1. Atherosclerotic disease of the right extracranial internal carotid artery with no stenosis by NASCET criteria. 2. Atherosclerotic disease of the left extracranial internal carotid artery with no stenosis by NASCET criteria. 3. Distally hypoplastic non dominant right vertebral artery. 4. Widely patent dominant left vertebral artery REFERENCES: NASCET CRITERIA. The degree of internal carotid artery stenosis is based on NASCET criteria. Normal is no stenosis. Mild is less than 50% stenosis. Moderate is 50-69% stenosis. Severe is 70% to 99% stenosis. Total occlusion is no detectable patent lumen. Chest/Abdomen/Pelvis CT 12/27/21 01:12 IMPRESSION: 1. Mild bilateral upper lobe, minimal right middle lobe, mild right lower lobe and minimal left lower lobe peripheral regions of interlobular septal thickening. No honeycombing seen. No significant ground-glass opacities or areas of consolidation. These are nonspecific findings, suggestive of interstitial lung disease. Recommend correlation with clinical history. High-resolution chest CT may be performed for complete assessment. 2. Mildly enlarged prevascular and right paratracheal lymph nodes. 3. Mild coronary arterial atherosclerotic vascular calcifications. IMPRESSION: 1. No acute abnormality seen on the non-contrast abdominal and pelvic CT. 2. Diffuse mild colonic diverticulosis, without CT evidence of diverticulitis. 3. Severe fatty infiltration of the liver. 4. Severe degenerative changes at the L4-L5 level with central and foraminal stenosis, as noted above. Laboratory Results WBC 8.2 10^3/uL (4.0-10.0) 12/26/21 23:50 RBC 4.76 10^6/uL (4.1-5.3) 12/26/21 23:50 Hgb 15.7 g/dL (11.7-16.6) 12/26/21 23:50 Hct 45.9 % (42.0-52.0) 12/26/21 23:50 MCV 96.4 fl (80-94) H 12/26/21 23:50 MCH 33.0 pg (28.0-34.0) 12/26/21 23:50 MCHC 34.2 g/dL (30.0-36.0) 12/26/21 23:50 RDW 11.9 % (12.1-15.1) L 12/26/21 23:50 Plt Count 232 10^3/cmm (130-400) 12/26/21 23:50 MPV 11.2 fL (7.4-10.4) H 12/26/21 23:50 Neut % (Auto) 61.5 % 12/26/21 23:50 Lymph % (Auto) 20.4 % 12/26/21 23:50 [place] % (Auto) 7.7 % 12/26/21 23:50 Eos % (Auto) 9.4 % 12/26/21 23:50 Baso % (Auto) 0.9 % 12/26/21 23:50 Neut # (Auto) 5.06 10^3/uL (1.8-7.7) 12/26/21 23:50 Lymph # (Auto) 1.7 10^3/uL (0.8-4.8) 12/26/21 23:50 [place] # (Auto) 0.6 10^3/uL (0.2-0.9) 12/26/21 23:50 Eos # (Auto) 0.8 10^3/uL (0.0-0.8) 12/26/21 23:50 Baso # (Auto) 0.1 10^3/uL (0.0-0.1) 12/26/21 23:50 Nucleated RBC % (auto) 0 % 12/26/21 23:50 Nucleated RBCs # 0.0 /100WBC 12/26/21 23:50 PT 13.00 SECONDS (12.1-14.9) 12/27/21 00:14 INR 0.96 (0.8-1.2) 12/27/21 00:14 APTT 43.1 SECONDS (23.9-36.7) H 12/27/21 00:14 Sodium 133 mmol/L (136-145) L 12/26/21 23:50 Potassium 3.8 mmol/L (3.5-5.1) 12/26/21 23:50 Chloride 97 mmol/L (98-107) L 12/26/21 23:50 Carbon Dioxide 20 mmol/L (22-29) L 12/26/21 23:50 Anion Gap 19.8 (5-19) H 12/26/21 23:50 BUN 8 mg/dL (6-20) 12/26/21 23:50 Creatinine 0.7 mg/dL (0.7-1.2) 12/26/21 23:50 GFR Calculation 120.4 mL/min (90-130) 12/26/21 23:50 Glucose 113 mg/dL (65-115) 12/26/21 23:50 POC Glucose 109 mg/dL (70-110) 12/27/21 00:11 Calculated Osmolality 275 mOsm/kg (285-295) L 12/26/21 23:50 Calcium 8.9 mg/dL (8.5-10.5) 12/26/21 23:50 Total Bilirubin 0.3 mg/dL (0.15-1.2) 12/26/21 23:50 AST 90 U/L (0-40) H 12/26/21 23:50 ALT 76 U/L (0-41) H 12/26/21 23:50 Alkaline Phosphatase 96 IU/L (40-130) 12/26/21 23:50 Troponin T Baseline 9 ng/L (0-15) 12/26/21 23:50 Troponin T 120 Minute 8.96 ng/L (0-15) 12/27/21 02:20 Delta Troponin T -0.04 ABS# (0-10) L 12/27/21 02:20 NT-Pro-B Natriuret Pep 113 pg/mL (0-125) 12/26/21 23:50 Total Protein 6.9 g/dL (6.6-8.7) 12/26/21 23:50 Albumin 3.8 g/dL (3.5-5.2) 12/26/21 23:50 Globulin 3.1 g/dL (1.3-4.6) 12/26/21 23:50 Lipase 75 U/L (13-60) H 12/26/21 23:50 TSH 5.81 uIU/mL (0.27-4.20) H 12/26/21 23:50 Free T4 1.13 ng/dL (0.82-1.77) 12/26/21 23:50 Urine Color Yellow (Yellow) 12/27/21 01:15 Urine Appearance Clear (CLEAR) 12/27/21 01:15 Urine pH 6 (5-7) 12/27/21 01:15 Ur Specific [place] 1.020 (1.005-1.030) 12/27/21 01:15 Urine Protein Neg (Negative) 12/27/21 01:15 Urine Glucose (UA) Norm (Normal) 12/27/21 01:15 Urine Ketones Negative (Negative) 12/27/21 01:15 Urine Blood Neg (Negative) 12/27/21 01:15 Urine Nitrate Negative (Negative) 12/27/21 01:15 Urine Bilirubin 1+ (Negative) H 12/27/21 01:15 Urine Urobilinogen 1 mg/dL (Negative) H 12/27/21 01:15 Ur Leukocyte Esterase Negative (Negative) 12/27/21 01:15 Urine Opiates Screen Negative ng/mL (Negative) 12/27/21 01:15 Ur Barbiturates Screen Negative ng/mL (Negative) 12/27/21 01:15 Ur Phencyclidine Scrn Negative ng/mL (Negative) 12/27/21 01:15 Ur Amphetamines Screen Negative ng/mL (Negative) 12/27/21 01:15 U Benzodiazepines Scrn Positive ng/mL (Negative) H 12/27/21 01:15 Urine Cocaine Screen Negative ng/mL (Negative) 12/27/21 01:15 U Marijuana (THC) Screen Negative ng/mL (Negative) 12/27/21 01:15 Ethyl Alcohol 30 mg/dL (0-10) H 12/26/21 23:50 Discharge Plan Discharge Patient Disposition: Home Clinical Impression: Syncope, Dehydration Condition: Stable Prescriptions: New ondansetron 4 mg tablet,disintegrating 4 mg PO Q8H PRN (Reason: nausea and vomiting) Qty: 15 0RF No Action citalopram [Celexa] 20 mg tablet 20 mg PO DAILY Qty: 30 0RF Invega Sustenna 234 mg/1.5 mL syringe 234 mg IM ONCE Qty: 1.5 0RF Invega Sustenna 156 mg/mL syringe 156 mg IM ONCE Qty: 1 0RF Rx Instructions: To be given 7 days after the 234mg injection is given/ nicotine [Nicoderm CQ] 21 mg/24 hr patch 24 hour 1 patch transdermal DAILY Qty: 28 0RF gabapentin 400 mg capsule 400 mg PO TID 30 Days Qty: 90 0RF lisinopril 30 mg tablet 30 mg PO DAILY 90 Days Qty: 90 0RF levetiracetam [Keppra] 1,000 mg tablet 1,000 mg PO BID Qty: 60 0RF metformin 500 mg tablet extended release 24 hr 500 mg PO BID 90 Days Qty: 180 0RF triamcinolone acetonide 0.1 % cream TOPICAL TID Discharge Orders: Discharge ED (Routine); Ordered 12/27/21 Ordered By: Saulo Patterson Referrals: Joel Rivas, DELIVERY AND INSTALLATION SUBCONTRACTOR[facility] [Primary Care Provider] - Discharge Diet: Usual diet Discharge Activity: Limit activity as instructed Patient Instructions: Syncope (ED), Opioid Safety Activity Restrictions/Additional Instructions: Thank you for visiting the emergency department. You were seen and evaluated for syncope. The exact cause of your symptoms is unclear. I do not see evidence of new stroke. Symptoms may be related to dehydration, please ensure that you are staying hydrated. Symptoms could be caused by seizure, please ensure that you follow all standard seizure precautions including no driving or operating machinery, do not take baths and bath tubs or swim, do not cook over open flames, do not otherwise perform tasks that would be dangerous if you have recurrent loss of consciousness. Please follow-up with your primary care provider and neurology. Please return to the emergency department for recurrent symptoms, any new ne urologic symptoms, or anything else that you are concerned about and feel needs emergency department evaluation. Coding Level of Care Code ED Electrical Tests Supervisor for Carlos Fwdhiraj Exam Comprehensive
--- NOTE | 2021-12-27 00:06 | CTR_ITS ---
PROCEDURE INFORMATION: Exam: CT Head Without Contrast Exam date and time: 12/27/2021 12:21 AM Age: 46 years old Clinical indication: Syncope and collapse; Patient HX: Witnessed syncopal episode with fall. ETOH on board. ; Additional info: Syncope, R sided sensory changes TECHNIQUE: Imaging protocol: Computed tomography of the head without contrast. Radiation optimization: All CT scans at this facility use at least one of these dose optimization techniques: automated exposure control; mA and/or kV adjustment per patient size (includes targeted exams where dose is matched to clinical indication); or iterative reconstruction. COMPARISON: CT head wo con* [id number] 06/27/2015 6:34 PM RADIATION DOSE METRICS: Total DLP (mGy-cm): 1247.78 FINDINGS: Brain: Normal. No hemorrhage. Unremarkable white matter. No mass effect. Cerebral ventricles: No ventriculomegaly. Paranasal sinuses: Visualized sinuses are unremarkable. No fluid levels. Mastoid air cells: Visualized mastoid air cells are well aerated. Bones/joints: Unremarkable. No acute fracture. Soft tissues: Unremarkable. CT/CT head wo con* [id number] IMPRESSION: No acute intracranial abnormality.
--- NOTE | 2021-12-27 00:06 | CTR_ITS ---
PROCEDURE INFORMATION: Exam: CT Cervical Spine Without Contrast Exam date and time: 12/27/2021 12:26 AM Age: 46 years old Clinical indication: Injury or trauma; Blunt trauma; Patient HX: Witnessed syncopal episode with fall. ETOH on board. ; Additional info: Syncope TECHNIQUE: Imaging protocol: Computed tomography of the cervical spine without contrast. Radiation optimization: All CT scans at this facility use at least one of these dose optimization techniques: automated exposure control; mA and/or kV adjustment per patient size (includes targeted exams where dose is matched to clinical indication); or iterative reconstruction. COMPARISON: CT head wo con* [id number] 12/27/2021 12:21 AM RADIATION DOSE METRICS: Total DLP (mGy-cm): 346.07 FINDINGS: Bones/joints: Mild cervicothoracic dextroscoliosis. Discs/Spinal canal/Neural foramina: Multilevel bilateral foraminal stenosis. Lungs: Right apical pleural and/or parenchymal scarring. Soft tissues: Unremarkable. CT/CT cervical spin wo con* [id number] IMPRESSION: No acute findings.
--- NOTE | 2021-12-27 00:07 | XRR_ITS ---
PROCEDURE INFORMATION: Exam: XR Chest Exam date and time: 12/27/2021 12:31 AM Age: 46 years old Clinical indication: Other: Syncope; Patient HX: Witnessed syncopal episode with fall. ETOH on board. TECHNIQUE: Imaging protocol: Radiologic exam of the chest. Views: 1 view. COMPARISON: CR (CHEST, ) 12/16/2021 3:57 PM FINDINGS: Lungs: There is no evidence of focal pulmonary consolidation. Pleural spaces: No pleural effusion or pneumothorax. Heart/Mediastinum: Normal in size. Bones/joints: No acute fracture is identified. XR/XR chest 1V portable [id number] IMPRESSION: No acute findings.
--- NOTE | 2021-12-27 00:08 | ECG_ITS ---
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 Measurements Intervals [place] Rate: 103 P: 25 W[place]: 151 QRS: -5 QRSD: 101 T: 16 QT: 343 QTc: 449 Interpretive Statements SINUS TACHYCARDIA ABNORMAL RHYTHM ECG Compared to ECG 12/16/2021 17:20:39 No significant changes Electronically Signed On 12-27-2021 16:31:16 CDT by Skip Abdul M.D. [email or web address]
[2021-12-27 00:18] LABS: Glucose Point of Care 109 mg/dL (70-110)
[2021-12-27 00:20] LABS: Basophils # 0.1 10^3/uL (0.0-0.1); Basophils % 0.9 %; Eosinophils # 0.8 10^3/uL (0.0-0.8); Eosinophils % 9.4 %; Hematocrit 45.9 % (42.0-52.0); Hemoglobin 15.7 g/dL (11.7-16.6); Lymphocytes # 1.7 10^3/uL (0.8-4.8); Lymphocytes % 20.4 %; Mean Corpuscular HGB Conc 34.2 g/dL (30.0-36.0); Mean Corpuscular Volume 96.4 fl (80-94); Mean Platelet Volume 11.2 fL (7.4-10.4); Monocytes # 0.6 10^3/uL (0.2-0.9); Monocytes % 7.7 %; Neutrophils # 5.06 10^3/uL (1.8-7.7); Neutrophils % 61.5 %; Nucleated Red Blood Cells % 0 %; Platelet Count 232 10^3/cmm (130-400); Red Blood Count 4.76 10^6/uL (4.1-5.3); Red Cell Distribution Width 11.9 % (12.1-15.1); White Blood Count 8.2 10^3/uL (4.0-10.0)
[2021-12-27 00:36] LABS: INR 0.96 (0.8-1.2)
[2021-12-27 00:37] LABS: Partial Thromboplastin Time 43.1 SECONDS (23.9-36.7)
[2021-12-27 00:48] LABS: Troponin(5th) Baseline 9 ng/L (0-15)
[2021-12-27 00:56] VITALS: BP 136/100; BP 137/94; BP 168/79; PULSE 102; PULSE 116; PULSE 122
[2021-12-27 00:59] LABS: Alanine Aminotransferase 76 U/L (0-41); Albumin Level 3.8 g/dL (3.5-5.2); Alcohol Level 30 mg/dL (0-10); Alkaline Phosphatase 96 IU/L (40-130); Aspartate Amino Transferase 90 U/L (0-40); Blood Urea Nitrogen 8 mg/dL (6-20); Calcium 8.9 mg/dL (8.5-10.5); Carbon Dioxide 20 mmol/L (22-29); Chloride 97 mmol/L (98-107); Globulin 3.1 g/dL (1.3-4.6); Glomerular Filtration Rate 120.4 mL/min (90-130); Glucose 113 mg/dL (65-115); Lipase 75 U/L (13-60); NT Pro B Type Natriuretic Pept 113 pg/mL (0-125); Osmolality Calculated 275 mOsm/kg (285-295); Sodium 133 mmol/L (136-145); Thyroid Stimulating Hormone 5.81 uIU/mL (0.27-4.20); Total Bilirubin 0.3 mg/dL (0.15-1.2); Total Protein 6.9 g/dL (6.6-8.7)
--- NOTE | 2021-12-27 01:07 | CTR_ITS ---
PROCEDURE INFORMATION: Exam: CTA Head With Contrast, Arteries Exam date and time: 12/27/2021 2:42 AM Age: 46 years old Clinical indication: Numbness; Patient HX: C/O RT sided paresthesia. ; Additional info: R sided paresthesias, syncope TECHNIQUE: Imaging protocol: Computed tomographic angiography of the head with contrast. 3D rendering (Not supervised by radiologist): MIP and/or 3D reconstructed images were created by the technologist. Radiation optimization: All CT scans at this facility use at least one of these dose optimization techniques: automated exposure control; mA and/or kV adjustment per patient size (includes targeted exams where dose is matched to clinical indication); or iterative reconstruction. Contrast material: OMNI 350; Contrast volume: 95 ml; Contrast route: INTRAVENOUS (IV); COMPARISON: CT head wo con* [id number] 12/27/2021 12:21 AM RADIATION DOSE METRICS: Total DLP (mGy-cm): 536.27 FINDINGS: ANTERIOR CIRCULATION: Right internal carotid artery: Unremarkable. Intracranial segment is patent with no significant stenosis. No aneurysm. Right middle cerebral artery: Unremarkable. No occlusion or significant stenosis. No aneurysm. Right anterior cerebral artery: Unremarkable. No occlusion or significant stenosis. No aneurysm. Left internal carotid artery: Unremarkable. Intracranial segment is patent with no significant stenosis. No aneurysm. Left middle cerebral artery: Unremarkable. No occlusion or significant stenosis. No aneurysm. Left anterior cerebral artery: Unremarkable. No occlusion or significant stenosis. No aneurysm. POSTERIOR CIRCULATION: Right vertebral artery: Non dominant and distally hypoplastic. Ends in PICA. No occlusion or significant stenosis. No aneurysm. Left vertebral artery: Dominant widely patent left vertebral supplying the basilar artery. No occlusion or significant stenosis. No aneurysm. Basilar artery: A rather small-vessel supplied by the left vertebral artery only. No occlusion or significant stenosis. No aneurysm. Right posterior cerebral artery: Hypoplastic P1 segment with a patent posterior communicating artery, anatomic variant.. No occlusion or significant stenosis. No aneurysm. Left posterior cerebral artery: Hypoplastic P1 segment with a patent posterior communicating artery, anatomic variant. No occlusion or significant stenosis. No aneurysm. Brain: No definite mass, mass effect, or midline shift. Cerebral ventricles: No ventriculomegaly. Bones/joints: Unremarkable. No acute fracture. Soft tissues: Unremarkable. PROCEDURE INFORMATION: Exam: CTA Neck With Contrast Exam date and time: 12/27/2021 2:42 AM Age: 46 years old Clinical indication: Numbness; Patient HX: C/O RT sided paresthesia. ; Additional info: R sided paresthesias, syncope TECHNIQUE: Imaging protocol: Computed tomographic angiography of the neck with contrast. 3D rendering (Not supervised by radiologist): MIP and/or 3D reconstructed images were created by the technologist. Radiation optimization: All CT scans at this facility use at least one of these dose optimization techniques: automated exposure control; mA and/or kV adjustment per patient size (includes targeted exams where dose is matched to clinical indication); or iterative reconstruction. Contrast material: OMNI 350; Contrast volume: 95 ml; Contrast route: INTRAVENOUS (IV); COMPARISON: CT cervical spin wo con* [id number] 12/27/2021 12:26 AM RADIATION DOSE METRICS: Total DLP (mGy-cm): 536.27 FINDINGS: Right common carotid artery: No significant stenosis. No dissection or occlusion. Right internal carotid artery: Atherosclerotic disease of the extracranial segment with no significant stenosis. No dissection or occlusion. Right external carotid artery: No occlusion or significant stenosis of the origin. Left common carotid artery: No significant stenosis. No dissection or occlusion. Left internal carotid artery: Atherosclerotic disease of the extracranial segment with no significant stenosis. No dissection or occlusion. Left external carotid artery: No occlusion or significant stenosis of the origin. Right vertebral artery: The non dominant right vertebral artery is distally hypoplastic and ends in PICA. No dissection or occlusion. Left vertebral artery: Widely patent dominant left vertebral artery supplying the basilar artery. No significant stenosis. No dissection or occlusion. Soft tissues: No significant soft tissue swelling. Bones/joints: No acute fracture. CT/CT angio headneck* [id number] IMPRESSION: 1. No large vessel stenosis or occlusion. 2. Distally hypoplastic non dominant right vertebral artery. 3. origins of the right and left posterior cerebral arteries. IMPRESSION: 1. Atherosclerotic disease of the right extracranial internal carotid artery with no stenosis by NASCET criteria. 2. Atherosclerotic disease of the left extracranial internal carotid artery with no stenosis by NASCET criteria. 3. Distally hypoplastic non dominant right vertebral artery. 4. Widely patent dominant left vertebral artery REFERENCES: NASCET CRITERIA. The degree of internal carotid artery stenosis is based on NASCET criteria. Normal is no stenosis. Mild is less than 50% stenosis. Moderate is 50-69% stenosis. Severe is 70% to 99% stenosis. Total occlusion is no detectable patent lumen.
--- NOTE | 2021-12-27 01:12 | CTR_ITS ---
PROCEDURE INFORMATION: Exam: CT Chest Without Contrast; Diagnostic Exam date and time: 12/27/2021 2:36 AM Age: 46 years old Clinical indication: Nausea and vomiting; Other: N/a; Chest pressure; Patient HX: C/O anterior chest pain with n/v. ; Additional info: Syncope, chest pain anteriorly, n/v TECHNIQUE: Imaging protocol: Diagnostic computed tomography of the chest without contrast. Radiation optimization: All CT scans at this facility use at least one of these dose optimization techniques: automated exposure control; mA and/or kV adjustment per patient size (includes targeted exams where dose is matched to clinical indication); or iterative reconstruction. COMPARISON: CR (CHEST, ) 12/27/2021 12:31 AM RADIATION DOSE METRICS: Total DLP (mGy-cm): 1379.85 FINDINGS: Trachea: The airway appears unremarkable. Lungs: Mild bilateral upper lobe, minimal right middle lobe, mild right lower lobe and minimal left lower lobe peripheral regions of interlobular septal thickening are seen. There is no honeycombing seen. There are no significant ground-glass opacities seen. There are no areas of consolidation. These are nonspecific findings, suggestive of interstitial lung disease. High-resolution chest CT may be performed for complete assessment. Pleural spaces: No pneumothorax. No pleural effusion. Heart: The heart size is normal on noncontrast imaging. No pericardial effusion. Mild coronary arterial atherosclerotic vascular calcifications are seen. Lymph nodes: Enlarged prevascular 0.8 x 1.2 cm lymph node is seen. Enlarged right paratracheal 1 x 1 cm lymph node is seen. Calcified right hilar and subcarinal lymph nodes are seen, representing old granulomatous disease. Vasculature: The noncontrast enhanced images of the thoracic aorta show no aneurysm. The noncontrast enhanced images of the pulmonary arteries show normal size. Bones/joints: Large superior endplate Schmorl's node is seen at the T8 level. Small anterior degenerative osteophytes are seen at the T7-8 level with mild degenerative disc disease changes. Soft tissues: Unremarkable. PROCEDURE INFORMATION: Exam: CT Abdomen And Pelvis Without Contrast Exam date and time: 12/27/2021 2:36 AM Age: 46 years old Clinical indication: Nausea and vomiting; Other: N/a; Chest pressure; Patient HX: C/O anterior chest pain with n/v. ; Additional info: Syncope, chest pain anteriorly, n/v TECHNIQUE: Imaging protocol: Computed tomography of the abdomen and pelvis without contrast. Radiation optimization: All CT scans at this facility use at least one of these dose optimization techniques: automated exposure control; mA and/or kV adjustment per patient size (includes targeted exams where dose is matched to clinical indication); or iterative reconstruction. COMPARISON: CR (CHEST, ) 12/27/2021 12:31 AM RADIATION DOSE METRICS: Total DLP (mGy-cm): 1379.85 FINDINGS: Liver: There is severe fatty infiltration of the liver. No mass seen on noncontrast imaging. Gallbladder and bile ducts: The gallbladder is not well distended, limiting assessment. No calcified stones. No biliary ductal dilatation. Pancreas: Appears unremarkable on the non-contrast CT. No ductal dilation. Spleen: Appears unremarkable on the non-contrast CT. No splenomegaly. Adrenal glands: Normal. No mass. Kidneys and ureters: Appear unremarkable on the non-contrast CT. No hydronephrosis. Stomach and bowel: The noncontrast opacified stomach appears unremarkable. The noncontrast opacified small bowel loops appear unremarkable. Diffuse mild colonic diverticulosis is seen. There is no CT evidence of diverticulitis. Poor distension of the mid to distal sigmoid colon and rectum is seen, which limits assessment. The lack of orally administered contrast material limits assessment. Appendix: No evidence of appendicitis. Intraperitoneal space: No free air. No significant fluid collection. Vasculature: [id number] atherosclerotic vascular calcifications are seen. No abdominal aortic aneurysm. Lymph nodes: No enlarged lymph nodes. Urinary bladder: The bladder is not well distended with relative mild bladder wall prominence. No bladder debris. Reproductive: Unremarkable as visualized. Bones/joints: Medium to large sized disc osteophyte complex is seen at the L4-L5 level. Associated moderate degenerative facet disease changes. There appears to be moderate to severe central spinal stenosis with moderate bilateral foraminal stenosis. Dedicated imaging may be performed for complete assessment. Soft tissues: Small left inguinal hernia is seen, containing peritoneal fat. CT/[place] [id number] IMPRESSION: 1. Mild bilateral upper lobe, minimal right middle lobe, mild right lower lobe and minimal left lower lobe peripheral regions of interlobular septal thickening. No honeycombing seen. No significant ground-glass opacities or areas of consolidation. These are nonspecific findings, suggestive of interstitial lung disease. Recommend correlation with clinical history. High-resolution chest CT may be performed for complete assessment. 2. Mildly enlarged prevascular and right paratracheal lymph nodes. 3. Mild coronary arterial atherosclerotic vascular calcifications. IMPRESSION: 1. No acute abnormality seen on the non-contrast abdominal and pelvic CT. 2. Diffuse mild colonic diverticulosis, without CT evidence of diverticulitis. 3. Severe fatty infiltration of the liver. 4. Severe degenerative changes at the L4-L5 level with central and foraminal stenosis, as noted above.
[2021-12-27 01:17] LABS: Anion Gap 19.8 (5-19); Potassium 3.8 mmol/L (3.5-5.1)
[2021-12-27 01:18] LABS: Add Urine Microscopic? NO; Charge for UA Resulting for Rev
[2021-12-27 01:28] LABS: Bilirubin Urine 1+ (Negative); Blood Urine Neg (Negative); Glucose Urine UA Norm (Normal); Ketones Urine Negative (Negative); Leukocyte Esterase Urine Negative (Negative); Nitrate Urine Negative (Negative); Protein Urine Neg (Negative); Urine Appearance Clear (CLEAR); Urine Color Yellow (Yellow); Urobilinogen Urine 1 mg/dL (Negative); pH Urine 6 (5-7)
[2021-12-27 01:29] LABS: Amphetamines Screen Urine Negative (Negative); Barbiturates Screen Urine Negative (Negative); Benzodiazepines Screen Urine Positive (Negative); Cocaine Screen Urine Negative (Negative); Opiate Screen Urine Negative (Negative); PCP Screen Urine Negative (Negative); THC Screen Urine Negative (Negative)
[2021-12-27 01:44] LABS: Free T4 Free Thyroxine 1.13 ng/dL (0.82-1.77)
--- NOTE | 2021-12-27 02:08 | ECG_ITS ---
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 Measurements Intervals [place] Rate: 86 P: 47 LA: 145 QRS: -22 QRSD: 105 T: 31 QT: 392 QTc: 470 Interpretive Statements SINUS RHYTHM BORDERLINE LEFT AXIS DEVIATION [QRS AXIS < -20] Compared to ECG 12/26/2021 23:57:50 Sinus tachycardia no longer present Electronically Signed On 12-27-2021 16:37:01 CDT by Skip Abdul M.D. [id number]
[2021-12-27] MEDS: iohexol 350 mg/mL 100 mL Btl IV (02:55)
[2021-12-27 03:03] LABS: Troponin 5 2HR 8.96 ng/L (0-15)
[2021-12-27 03:16] LABS: Troponin 5 2HR Delta -0.04 ABS# (0-10)
[2021-12-27 04:00] VITALS: BP 160/90; PULSE 72; RESP 18; O2SAT 92
[2021-12-27] MEDS: ketorolac 30 mg/mL INJ 15 MG IVP (04:52)
[2021-12-27] MEDS: ondansetron 2 mg/ML SDV 2 mL 4 MG IVP (04:52)
[2021-12-27] MEDS: sodium chloride 0.9% 1,000 ML 999 ML IV (04:52)
== END 2021-12-27 05:43 | disposition home or self-care (01) ==
PROVIDERS: Emergency Provider Emergency Medicine; PCP Nurse Practitioner
DX: R55 Syncope and collapse (principal); E86.0 Dehydration; Z79.84 Long term (current) use of oral hypoglycemic drugs; E11.9 Type 2 diabetes mellitus without complications; I10 Essential (primary) hypertension; I25.10 Atherosclerotic heart disease of native coronary artery without angina pectoris; Z86.73 Personal history of transient ischemic attack (TIA), and cerebral infarction without residual deficits; E78.2 Mixed hyperlipidemia; F17.210 Nicotine dependence, cigarettes, uncomplicated; Z53.21 Procedure and treatment not carried out due to patient leaving prior to being seen by health care provider
CPT/HCPCS: 36416; 70450; 70496; 70498; 71045; 71250; 72125; 74176; 80053; 80306; 80307; 81003; 82962; 83690; 83880; 84439; 84443; 84484; 85025; 85610; 85730; 93005; 96374; 96375; 99281; 99285; J1885; J2405; J7030; Q9967

== ENCOUNTER 2021-12-27 10:09 | Emergency (ER) | payer MEDICARE, MEDICAID, SELFPAY ==
[2021-12-27 10:30] VITALS: BP 115/76; PULSE 111; RESP 15; O2SAT 92
--- NOTE | 2021-12-27 10:52 | W.ED.SYNCOPE ---
Documented by User: CONSTANTINE Adams 12/27/21 11:00 HPI - Syncope General: Chief Complaint: Syncope Stated Complaint: SYNCOPAL EPISODE/ CHEST PAIN Time Seen by Provider: 12/27/21 10:38 History of Present Illness: Patient is a 46-year-old male comes to the ED with syncopal episode. Patient was seen here in the ED for same complaint yesterday and was just discharged home late last night. Patient says he took 2 shots of whiskey and then passed out. He states that he feels the same as he did when he was discharged from the ED yesterday. Patient does not want to be treated here in the ED. He refuses any labs or imaging and would like to just go home and rest. Associated symptoms: Deny abdominal pain, chest pain, fever(s), headache(s) or nausea Review of Systems Const: Denies: fever(s), chills or fatigue Eyes: Denies: change in vision or eye discomfort ENMT: Denies: throat pain, odynophagia, nasal discharge or nasal congestion Card: Reports: syncope; Denies: chest pain, palpitations, edema, swelling of feet/ankles, dyspnea on exertion or orthopnea Resp: Denies: dyspnea, productive cough or non-productive cough GI: Denies: abdominal pain, nausea, vomiting, diarrhea, constipation or hematochezia : Denies: flank pain, difficulty urinating, dysuria or hematuria Musc: Denies: neck pain, back pain or extremity swelling Skin/Breast: Denies: rash or new lesions Neuro: Denies: headache(s), numbness in extremities or weakness in extremities PFS ED PFSH: Medical History Acne rosacea Alcohol dependence, uncomplicated Bipolar disorder Controlled diabetes mellitus with hyperglycemia Current smoker DM neuropathy, painful Essential (primary) hypertension History of alcohol abuse daily use of hard liquor History of coronary artery disease History of CVA (cerebrovascular accident) 2010 Right side weakness due to a bleed History of memory loss History of schizophrenia Mixed hyperlipidemia Nicotine dependence, cigarettes, uncomplicated Psoriasis Psychiatric care Seizure disorder Surgical History History of colonoscopy with polypectomy 2015 History of esophagogastroduodenoscopy (EGD) History of eye surgery History of heart artery stent Family History Other Dementia Diabetes Hypertension Lung disease Psychiatric illness Stroke Denies family history of Chronic kidney disease (CKD) Anesthesia complication Bleeding disorder Cancer Social History Smoking and tobacco status: current every day smoker cigarettes Packs smoked per day: 2.5 Years cigarettes smoked: 38 Second hand smoke exposure: Yes Smoking risk assessment/counseling performed?: Yes Alcohol intake: current Alcohol intake frequency: 0-2 Drinks per Day Alcohol type: hard liquor Desire information about alcohol rehabilitation?: No Counseling given: No Desire information about substance/drug rehabilitation?: No Counseling given: No Adopted: No Caregiver/support person: Yes Lives independently: No Household members: friend(s) and caregiver Housing: Manufactured/Mobile home Marital status: Number of children: 8 service: No Current occupational status: disabled Pets and animals: Yes History of recent travel: Yes Details: month an a half ago Out of state: Yes Current gender identity: Male Physical Exam Const: COMMON NORMALS: no acute distress, patient oriented x3 and alert GENERAL APPEARANCE: cooperative and comfortable HENMT: COMMON NORMALS: normocephalic HEAD & SCALP: normocephalic MOUTH: Normal oral and palatal mucosa present THROAT: posterior oropharynx normal and uvula midline Neck/C-Spine: COMMON NORMALS: supple GENERAL: Yes normal visual inspection Resp: COMMON NORMALS: normal respiratory effort, No retractions, No use of accessory muscles and clear to auscultation bilaterally AUSCULTATION: clear to auscultation bilaterally Cardio: COMMON NORMALS: regular rate, regular rhythm, S1 normal heart sound present, S2 normal heart sound present, No gallops present (Cardio), No clicks present (Cardio), No murmurs present (Cardio) and Peripheral pulses 2+ throughout RATE: regular rate RHYTHM: regular rhythm HEART SOUNDS: S1 normal heart sound present and S2 normal heart sound present PERIPHERAL PULSES: Peripheral pulses 2+ throughout GI: COMMON NORMALS: Normal to inspection, nondistended, normoactive bowel sounds present, Soft to palpation, non-tender and no masses PALPATION: Yes Soft to palpation : COMMON NORMALS: Yes no CVA tenderness BLADDER/KIDNEY EXAM: Yes no CVA tenderness Back/Pelvis: COMMON NORMALS: no CVA tenderness Extremity: COMMON NORMALS: normal to inspection Neuro: COMMON NORMALS: patient oriented x3 and moves all extremities SENSORIUM/ORIENTATION: Yes alert Skin: GENERAL SKIN EXAM: dry skin Course Vital Signs: Vital signs: Vital Signs Pulse Rate 111 H 12/27/21 10:30 Respiratory Rate 15 12/27/21 10:30 Blood Pressure 115/76 12/27/21 10:30 Pulse Oximetry 92 12/27/21 10:30 MDM - Syncope Medical Decision Making Patient is a 46-year-old male comes to the ED with syncopal episode. Patient was seen here in the ED for same complaint yesterday and was just discharged home late last night. Patient says he took 2 shots of whiskey and then passed out. Patient does not want to be treated here in the ED. He refuses any labs or imaging and would like to just go home and rest. I offered him to stay here in the ED to get further evaluation and he denied that. Patient left AMA. He signed AMA form and was discharged home. Discharge Plan Discharge Patient Disposition: Left Against Medical Advice Clinical Impression: Syncope Condition: Stable Prescriptions: No Action gabapentin 400 mg capsule 400 mg PO TID 30 Days Qty: 90 0RF lisinopril 30 mg tablet 30 mg PO DAILY 90 Days Qty: 90 0RF levetiracetam [Keppra] 1,000 mg tablet 1,000 mg PO BID Qty: 60 0RF metformin 500 mg tablet extended release 24 hr 500 mg PO BID 90 Days Qty: 180 0RF triamcinolone acetonide 0.1 % cream TOPICAL TID 0RF ondansetron 4 mg tablet,disintegrating 4 mg PO Q8H PRN (Reason: nausea and vomiting) Qty: 15 0RF Referrals: Joel Rivas FNP-C [Primary Care Provider] - Activity Restrictions/Additional Instructions: Follow-up with medical provider as directed. Continue taking all home medications as previously prescribed. Return to the ER or your medical provider if condition worsens. Please read and understand discharge instructions. Thank you for choosing [facility] for your healthcare needs today. Please realize this is an emergency room and that we are providing you with a medical screening exam and this may not be complete and all inclusive of all the testing and or work up that you may need to determine your ailment or severity of your illness. It is very important that you follow up as instructed or that you return to the Emergency Department should you have concerns or if your condition changes or worsens in any way. Coding Level of Care Code ED Double Surface Operator for Chg Fwd Exam Comprehensive Documented by User: Leobardo Louis, 12/28/21 08:49 HPI - Syncope General: Chief Complaint: Syncope Stated Complaint: SYNCOPAL EPISODE/ CHEST PAIN Time Seen by Provider: 12/27/21 10:38 PFS ED PFSH: Medical History Acne rosacea Alcohol dependence, uncomplicated Bipolar disorder Controlled diabetes mellitus with hyperglycemia Current smoker DM neuropathy, painful Essential (primary) hypertension History of alcohol abuse daily use of hard liquor History of coronary artery disease History of CVA (cerebrovascular accident) 2009 Right side weakness due to a bleed History of memory loss History of schizophrenia Mixed hyperlipidemia Nicotine dependence, cigarettes, uncomplicated Psoriasis Psychiatric care Seizure disorder Surgical History History of colonoscopy with polypectomy 2015 History of esophagogastroduodenoscopy (EGD) History of eye surgery History of heart artery stent Family History Other Dementia Diabetes Hypertension Lung disease Psychiatric illness Stroke Denies family history of Chronic kidney disease (CKD) Anesthesia complication Bleeding disorder Cancer Social History Smoking and tobacco status: current every day smoker cigarettes Packs smoked per day: 2.5 Years cigarettes smoked: 38 Second hand smoke exposure: Yes Smoking risk assessment/counseling performed?: Yes Alcohol intake: current Alcohol intake frequency: 0-2 Drinks per Day Alcohol type: hard liquor Desire information about alcohol rehabilitation?: No Counseling given: No Desire information about substance/drug rehabilitation?: No Counseling given: No Adopted: No Caregiver/support person: Yes Lives independently: No Household members: friend(s) and caregiver Housing: Manufactured/Mobile home Marital status: Number of children: 8 service: No Current occupational status: disabled Pets and animals: Yes History of recent travel: Yes Details: month an a half ago Out of state: Yes Current gender identity: Male Course Vital Signs: Vital signs: Vital Signs Pulse Rate 111 H 12/27/21 10:30 Respiratory Rate 15 12/27/21 10:30 Blood Pressure 115/76 12/27/21 10:30 Pulse Oximetry 92 12/27/21 10:30 MDM - Syncope Medical Decision Making Patient is a 46-year-old male comes to the ED with syncopal episode. Patient was seen here in the ED for same complaint yesterday and was just discharged home late last night. Patient says he took 2 shots of whiskey and then passed out. Patient does not want to be treated here in the ED. He refuses any labs or imaging and would like to just go home and rest. I offered him to stay here in the ED to get further evaluation and he denied that. Patient left AMA. He signed AMA form and was discharged home. Chart reviewed and patient discussed with midlevel. Agree with assessment and plan. Discharge Plan Discharge Patient Disposition: Left Against Medical Advice Clinical Impression: Syncope Condition: Stable Prescriptions: No Action gabapentin 400 mg capsule 400 mg PO TID 30 Days Qty: 90 0RF lisinopril 30 mg tablet 30 mg PO DAILY 90 Days Qty: 90 0RF levetiracetam [Keppra] 1,000 mg tablet 1,000 mg PO BID Qty: 60 0RF metformin 500 mg tablet extended release 24 hr 500 mg PO BID 90 Days Qty: 180 0RF triamcinolone acetonide 0.1 % cream TOPICAL TID 0RF ondansetron 4 mg tablet,disintegrating 4 mg PO Q8H PRN (Reason: nausea and vomiting) Qty: 15 0RF Referrals: Joel Rivas FNP-C [Primary Care Provider] - Activity Restrictions/Additional Instructions: Follow-up with medical provider as directed. Continue taking all home medications as previously prescribed. Return to the ER or your medical provider if condition worsens. Please read and understand discharge instructions. Thank you for choosing [facility] for your healthcare needs today. Please realize this is an emergency room and that we are providing you with a medical screening exam and this may not be complete and all inclusive of all the testing and or work up that you may need to determine your ailment or severity of your illness. It is very important that you follow up as instructed or that you return to the Emergency Department should you have concerns or if your condition changes or worsens in any way. Coding Level of Care Code ED Double Surface Operator for Carlos Fwd Exam Comprehensive
== END 2021-12-27 11:24 | disposition left against medical advice (07) ==
PROVIDERS: Emergency Provider Physician Assistant; PCP Nurse Practitioner
DX: R55 Syncope and collapse (principal); Z53.21 Procedure and treatment not carried out due to patient leaving prior to being seen by health care provider; Z79.84 Long term (current) use of oral hypoglycemic drugs; E11.9 Type 2 diabetes mellitus without complications; I10 Essential (primary) hypertension; I25.10 Atherosclerotic heart disease of native coronary artery without angina pectoris; Z86.73 Personal history of transient ischemic attack (TIA), and cerebral infarction without residual deficits; E78.2 Mixed hyperlipidemia; F17.210 Nicotine dependence, cigarettes, uncomplicated
CPT/HCPCS: 99281

== ENCOUNTER 2021-12-27 13:16 | Emergency (ER) | payer MEDICARE, MEDICAID, SELFPAY ==
[2021-12-27 13:21] VITALS: BP 140/93; PULSE 112; RESP 16; TEMP 36.7; O2SAT 95; BMI 31.9
== END 2021-12-27 13:29 | disposition left against medical advice (07) ==
PROVIDERS: Emergency Provider Family Medicine; PCP Nurse Practitioner
DX: Z53.21 Procedure and treatment not carried out due to patient leaving prior to being seen by health care provider (principal)
CPT/HCPCS: 99283

== ENCOUNTER 2022-04-14 10:03 | Inpatient (IN) | payer MEDICARE, MEDICAID, SELFPAY ==
[2022-04-14] VITALS (14 sets, daily range): BP systolic 114–158; BP diastolic 71–117; PULSE 108–122; RESP 16–22; TEMP 37.2–37.8; O2SAT 91–96; BMI 35.2; BMI 35.4
--- NOTE | 2022-04-14 10:21 | XRR_ITS ---
PROCEDURE INFORMATION: Exam: XR Chest Exam date and time: 04/14/2022 10:29 AM Age: 46 years old Clinical indication: Shortness of breath; Additional info: SOB TECHNIQUE: Imaging protocol: Radiologic exam of the chest. Views: 1 view. COMPARISON: CT chest abdpel [id number] 12/27/2021 2:36 AM FINDINGS: Lungs: Diaphragm is elevated consistent with large ascites seen on CT scan. No consolidation. Pleural spaces: Unremarkable. No pleural effusion. No pneumothorax. Heart/Mediastinum: Unremarkable. No cardiomegaly. Bones/joints: Unremarkable. XR/XR chest 1V portable [id number] IMPRESSION: Elevated diaphragm consistent with large ascites. No acute cardiopulmonary abnormality.
--- NOTE | 2022-04-14 10:21 | CTR_ITS ---
PROCEDURE INFORMATION: Exam: CT Abdomen And Pelvis Without Contrast Exam date and time: 04/14/2022 10:35 AM Age: 46 years old Clinical indication: Abdominal pain; Generalized; Patient HX: Bloating, hematuria x 2 weeks; Additional info: Abd pain TECHNIQUE: Imaging protocol: Computed tomography of the abdomen and pelvis without contrast. Radiation optimization: All CT scans at this facility use at least one of these dose optimization techniques: automated exposure control; mA and/or kV adjustment per patient size (includes targeted exams where dose is matched to clinical indication); or iterative reconstruction. COMPARISON: [place] [id number] 12/27/2021 2:36 AM RADIATION DOSE METRICS: Total DLP (mGy-cm): 1214.66 FINDINGS: Heart: Heart is not enlarged. There is calcification of the coronary arteries. Liver: Severe fatty liver. Gallbladder and bile ducts: Normal. No calcified stones. No ductal dilation. Pancreas: Normal. No ductal dilation. Spleen: Tiny benign calcified granulomas are present in the spleen. Adrenal glands: Normal. No mass. Kidneys and ureters: Normal. No hydronephrosis. Stomach and bowel: There are scattered diverticuli in the colon. No diverticulitis. No bowel obstruction or significant dilatation. Appendix: No evidence of appendicitis. Intraperitoneal space: Large ascites throughout the abdomen and pelvis. No free intraperitoneal air. Vasculature: The abdominal aorta and iliac arteries are calcified. No abdominal aortic aneurysm. Lymph nodes: There are benign calcified lymph nodes in the mediastinum and right pulmonary hilum. Urinary bladder: Unremarkable as visualized. Reproductive: Unremarkable as visualized. Bones/joints: Unremarkable. No acute fracture. Soft tissues: Is subcutaneous edema around the abdomen and pelvis. CT/CT abdomen pelvis wo con [id number] IMPRESSION: 1. Severely fatty liver. 2. Large ascites. 3. Diverticulosis. 4. No other acute abnormalities are seen.
--- NOTE | 2022-04-14 10:21 | ECG_ITS ---
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 Measurements Intervals [place] Rate: 119 P: 63 [place]: 150 QRS: 118 QRSD: 100 T: 14 QT: 335 QTc: 471 Interpretive Statements SINUS TACHYCARDIA POSSIBLE RIGHT VENTRICULAR HYPERTROPHY LATERAL MYOCARDIAL INFARCTION , PROBABLY OLD Compared to ECG 12/27/2021 02:59:02 Myocardial infarct finding now present Sinus rhythm no longer present Electronically Signed On 04-14-2022 10:50:05 CDT by Deepali Nj M.D. [id number]
--- NOTE | 2022-04-14 10:26 | W.ED.ABDPA2 ---
HPI - Abdominal Pain General: Chief Complaint: Abdominal Pain Stated Complaint: abd bloat/pain Time Seen by Provider: 04/14/22 10:12 Source: patient Mode of arrival: ambulatory Limitations: no limitations History of Present Illness: 46-year-old male who has a history of chronic alcoholism states that over the last 2 weeks has been having increasing abdominal swelling he states that he is having cough and shortness of breath now states he is having diffuse abdominal pain. He states he has no known liver disease he states he has not had swelling like this before. Denies any vomiting he denies any fever denies any worsening Factors. Associated Symptoms: Denies chills, dysuria and fever(s) Review of Systems Const: Denies: fever(s), chills, body aches or change in appetite Eyes: Denies: blurry vision or eye discomfort ENMT: Denies: throat pain or dental pain Card: Denies: chest pain Resp: Reports: dyspnea GI: Reports: abdominal pain : Denies: dysuria Musc: Denies: neck pain or back pain Skin/Breast: Denies: rash Neuro: Denies: headache(s) Psych: Denies: depression Len/Lymph: Denies: easy bruising All/Imm: Denies: urticaria PFSH ED PFSH: Medical History Acne rosacea Alcohol dependence, uncomplicated Bipolar disorder Controlled diabetes mellitus with hyperglycemia Current smoker DM neuropathy, painful Essential (primary) hypertension History of alcohol abuse daily use of hard liquor History of coronary artery disease History of CVA (cerebrovascular accident) 2010 Right side weakness due to a bleed History of memory loss History of schizophrenia Mixed hyperlipidemia Nicotine dependence, cigarettes, uncomplicated Psoriasis Psychiatric care Seizure disorder Surgical History History of colonoscopy with polypectomy 2015 History of esophagogastroduodenoscopy (EGD) History of eye surgery History of heart artery stent Family History Other Dementia Diabetes Hypertension Lung disease Psychiatric illness Stroke Denies family history of Chronic kidney disease (CKD) Anesthesia complication Bleeding disorder Cancer Social History Smoking and tobacco status: current every day smoker cigarettes Packs smoked per day: 2.5 Years cigarettes smoked: 38 Second hand smoke exposure: Yes Smoking risk assessment/counseling performed?: Yes Alcohol intake: current Alcohol intake frequency: 0-2 Drinks per Day Alcohol type: hard liquor Desire information about alcohol rehabilitation?: No Counseling given: No Desire information about substance/drug rehabilitation?: No Counseling given: No Adopted: No Caregiver/support person: Yes Lives independently: No Household members: friend(s) and caregiver Housing: Manufactured/Mobile home Marital status: Number of children: 8 service: No Current occupational status: disabled Pets and animals: Yes History of recent travel: Yes Details: month an a half ago Out of state: Yes Current gender identity: Male Physical Exam Const: COMMON NORMALS: patient oriented x3 GENERAL APPEARANCE: in distress and ill appearing HENMT: COMMON NORMALS: normocephalic and atraumatic HEAD & SCALP: normocephalic and atraumatic Eye: COMMON NORMALS: Equal, round and reactive pupils present and EOMs intact bilaterally PUPIL: Yes Equal, round and reactive pupils present Neck/C-Spine: COMMON NORMALS: full ROM and supple Chest: COMMONS NORMALS: normal inspection of the chest and normal palpation of entire chest wall Resp: COMMON NORMALS: No retractions EFFORT & INSPECTION: Yes tachypneic and Yes labored AUSCULTATION: rales Cardio: COMMON NORMALS: regular rhythm and No murmurs present (Cardio) RATE: tachycardic RHYTHM: regular rhythm GI: COMMON NORMALS: Normal to inspection, nondistended, normoactive bowel sounds present, Soft to palpation, non-tender and no masses PALPATION: Yes Soft to palpation Extremity: COMMON NORMALS: normal to inspection and full ROM Neuro: COMMON NORMALS: patient oriented x3, moves all extremities and no focal motor deficits Psych: COMMON NORMALS: mental status grossly normal, Normal thought process present and cooperative THOUGHT PROCESS: Normal thought process present Skin: COMMON NORMALS: no rashes or lesions noted and no wounds GENERAL SKIN EXAM: no rashes or lesions noted Course Vital Signs: Vital signs: Vital Signs Temperature 99.1 F 04/14/22 10:10 Pulse Rate 114 H 04/14/22 12:08 Respiratory Rate 22 H 04/14/22 12:25 Blood Pressure 145/89 04/14/22 12:08 Pulse Oximetry 95 04/14/22 12:25 Oxygen Delivery Me thod 04/14/22 12:08 Oxygen Flow Rate 2 04/14/22 12:05 MDM - Abdominal Pain Medical Decision Making Patient presents with abdominal pain along with severe ascites patient likely has cirrhosis believe his ascites likely causing his dyspnea and hypoxia we will start him on antibiotics to cover for possible SBP I spoke to hospitalist who will admit at this time. Lab Data : 04/14/22 10:30 04/14/22 10:30 Labs/Radiology: Radiology Impressions Abdomen/Pelvis CT 04/14/22 10:21 IMPRESSION: 1. Severely fatty liver. 2. Large ascites. 3. Diverticulosis. 4. No other acute abnormalities are seen. Chest X-Ray 04/14/22 10:21 IMPRESSION: Elevated diaphragm consistent with large ascites. No acute cardiopulmonary abnormality. Laboratory Results WBC 10.8 10^3/uL (4.0-10.0) H 04/14/22 10:30 RBC 4.40 10^6/uL (4.1-5.3) 04/14/22 10:30 Hgb 15.5 g/dL (11.7-16.6) 04/14/22 10:30 Hct 46.4 % (42.0-52.0) 04/14/22 10:30 MCV 105.5 fl (80-94) H 04/14/22 10:30 MCH 35.2 pg (28.0-34.0) H 04/14/22 10:30 MCHC 33.4 g/dL (30.0-36.0) 04/14/22 10:30 RDW 13.0 % (12.1-15.1) 04/14/22 10:30 Plt Count 198 10^3/cmm (130-400) 04/14/22 10:30 MPV 11.4 fL (7.4-10.4) H 04/14/22 10:30 Neut % (Auto) 78.7 % 04/14/22 10:30 Lymph % (Auto) 9.9 % 04/14/22 10:30 [place] % (Auto) 8.3 % 04/14/22 10:30 Eos % (Auto) 1.7 % 04/14/22 10:30 Baso % (Auto) 0.8 % 04/14/22 10:30 Neut # (Auto) 8.49 10^3/uL (1.8-7.7) H 04/14/22 10:30 Lymph # (Auto) 1.1 10^3/uL (0.8-4.8) 04/14/22 10:30 [place] # (Auto) 0.9 10^3/uL (0.2-0.9) 04/14/22 10:30 Eos # (Auto) 0.2 10^3/uL (0.0-0.8) 04/14/22 10:30 Baso # (Auto) 0.1 10^3/uL (0.0-0.1) 04/14/22 10:30 Nucleated RBC % (auto) 0 % 04/14/22 10:30 Nucleated RBCs # 0.0 /100WBC 04/14/22 10:30 PT 15.90 SECONDS (12.1-14.9) H 04/14/22 10:30 INR 1.24 (0.8-1.2) H 04/14/22 10:30 Sodium 136 mmol/L (136-145) 04/14/22 10:30 Potassium 3.8 mmol/L (3.5-5.1) 04/14/22 10:30 Chloride 97 mmol/L (98-107) L 04/14/22 10:30 Carbon Dioxide 24 mmol/L (22-29) 04/14/22 10:30 Anion Gap 18.8 (5-19) 04/14/22 10:30 BUN 4 mg/dL (6-20) L 04/14/22 10:30 Creatinine 0.4 mg/dL (0.7-1.2) L 04/14/22 10:30 GFR Calculation 229.6 mL/min (90-130) H 04/14/22 10:30 Glucose 125 mg/dL (65-115) H 04/14/22 10:30 Calculated Osmolality 280 mOsm/kg (285-295) L 04/14/22 10:30 Calcium 8.1 mg/dL (8.5-10.5) L 04/14/22 10:30 Total Bilirubin 3.1 mg/dL (0.15-1.2) H 04/14/22 10:30 AST 147 U/L (0-40) H 04/14/22 10:30 ALT 39 U/L (0-41) 04/14/22 10:30 Alkaline Phosphatase 146 U/L (40-130) H 04/14/22 10:30 Troponin T Baseline 20 ng/L (0-15) H 04/14/22 10:30 Total Protein 7.1 g/dL (6.6-8.7) 04/14/22 10:30 Albumin 2.8 g/dL (3.5-5.2) L 04/14/22 10:30 Globulin 4.3 g/dL (1.3-4.6) 04/14/22 10:30 Lipase 111 U/L (13-60) H 04/14/22 10:30 Urine Color [place] (Yellow) 04/14/22 11:37 Urine Appearance Hazy (CLEAR) A 04/14/22 11:37 Urine pH 5 (5-7) 04/14/22 11:37 Ur Specific [place] 1.020 (1.005-1.030) 04/14/22 11:37 Urine Protein TNP 04/14/22 11:37 Urine Glucose (UA) TNP 04/14/22 11:37 Urine Ketones TNP 04/14/22 11:37 Urine Blood TNP 04/14/22 11:37 Urine Nitrate TNP 04/14/22 11:37 Urine Bilirubin TNP 04/14/22 11:37 Urine Urobilinogen TNP 04/14/22 11:37 Ur Leukocyte Esterase TNP 04/14/22 11:37 Urine RBC None /hpf (0-2) 04/14/22 11:37 Urine WBC 5-10 /hpf (0-5) H 04/14/22 11:37 Ur Squamous Epith Cells Rare /hpf (0-5) 04/14/22 11:37 Amorphous Sediment Not Reportable 04/14/22 11:37 Urine Bacteria 4+ /hpf (NONE) H 04/14/22 11:37 Urine Mucus 3+ /hpf 04/14/22 11:37 Hepatitis A IgM Ab Non-reactive (Nonreactive) 04/14/22 10:30 Hep Bs Antigen Non-reactive (Nonreactive) 04/14/22 10:30 Hep Bs Antibody < 3.5 (11.5-1000) L 04/14/22 10:30 Hep B Core Total Ab Non-reactive (Nonreactive) 04/14/22 10:30 Hepatitis C Antibody Non-reactive (Nonreactive) 04/14/22 10:30 SARS-CoV-2 Ag (Rapid) negative (Negative) 04/14/22 10:45 EKG Data EKG 1: I personally reviewed and interpreted this EKG as follows: EKG interpretation date: 04/14/22 EKG interpretation time: 10:28 Interpretation: sinus tach hr [address] or t wave abnormalities qrs 100 qtc 405 Discharge Plan Discharge Condition: Stable Prescriptions: No Action paliperidone [Invega] 3 mg tablet extended release 24hr 3 mg PO QAM Qty: 30 1RF hydroxyzine HCl 25 mg tablet 25 mg PO BID PRN (Reason: anxiety) Qty: 60 0RF citalopram [Celexa] 40 mg tablet 40 mg PO DAILY Qty: 30 1RF Invega Sustenna 234 mg/1.5 mL syringe 234 mg IM Q30D Qty: 1.5 0RF Referrals: Joel Rivas, MARINE TECHNICIAN-C [Primary Care Provider] - Coding Level of Care Code ED Retail Loss Prevention Specialist for Chg Fwd Exam Comprehensive
[2022-04-14 10:42] LABS: Basophils # 0.1 10^3/uL (0.0-0.1); Basophils % 0.8 %; Eosinophils # 0.2 10^3/uL (0.0-0.8); Eosinophils % 1.7 %; Hematocrit 46.4 % (42.0-52.0); Hemoglobin 15.5 g/dL (11.7-16.6); Lymphocytes # 1.1 10^3/uL (0.8-4.8); Lymphocytes % 9.9 %; Mean Corpuscular HGB Conc 33.4 g/dL (30.0-36.0); Mean Corpuscular Hemoglobin 35.2 pg (28.0-34.0); Mean Corpuscular Volume 105.5 fl (80-94); Mean Platelet Volume 11.4 fL (7.4-10.4); Monocytes # 0.9 10^3/uL (0.2-0.9); Monocytes % 8.3 %; Neutrophils # 8.49 10^3/uL (1.8-7.7); Neutrophils % 78.7 %; Nucleated Red Blood Cells % 0 %; Platelet Count 198 10^3/cmm (130-400); White Blood Count 10.8 10^3/uL (4.0-10.0)
[2022-04-14] MEDS: ipratropium-albuterol 3 mL Neb INHALATION (10:43)
[2022-04-14 10:52] LABS: INR 1.24 (0.8-1.2)
[2022-04-14 11:01] LABS: Alanine Aminotransferase 39 U/L (0-41); Albumin Level 2.8 g/dL (3.5-5.2); Alkaline Phosphatase 146 U/L (40-130); Aspartate Amino Transferase 147 U/L (0-40); Blood Urea Nitrogen 4 mg/dL (6-20); Calcium 8.1 mg/dL (8.5-10.5); Carbon Dioxide 24 mmol/L (22-29); Chloride 97 mmol/L (98-107); Globulin 4.3 g/dL (1.3-4.6); Glomerular Filtration Rate 229.6 mL/min (90-130); Glucose 125 mg/dL (65-115); Lipase 111 U/L (13-60); Osmolality Calculated 280 mOsm/kg (285-295); Sodium 136 mmol/L (136-145); Total Bilirubin 3.1 mg/dL (0.15-1.2); Total Protein 7.1 g/dL (6.6-8.7); Troponin(5th) Baseline 20 ng/L (0-15)
[2022-04-14 11:05] LABS: Anion Gap 18.8 (5-19); Potassium 3.8 mmol/L (3.5-5.1)
[2022-04-14 11:40] LABS: SARS Covid-2 Antigen negative (Negative)
[2022-04-14] MEDS: cefTRIAXone 1,000 MG in sodium chloride 0.9% (plus) 50 ML 100 MG IV (12:04)
[2022-04-14 12:10] LABS: Urine Appearance Hazy (CLEAR); Urine Color Orange (Yellow); pH Urine 5 (5-7)
[2022-04-14 12:11] LABS: Hepatitis A Antibody IgM Non-Reactive (Nonreactive); Hepatitis B Core AB, Total Non-Reactive (Nonreactive); Hepatitis B Surface Antigen Non-Reactive (Nonreactive); Hepatitis C Virus Antibody Non-Reactive (Nonreactive)
--- NOTE | 2022-04-14 12:12 | P.HP_ITS ---
Providers/Chief Complaint Primary Care Provider: ANILA MartelC Chief Complaint: abd bloat/pain History of Present Illness Reinaldo Flores is a 46 year old male with past medical history of chronic alcohol use, came in with chief complaint of Worsening abdominal swelling, started about 2 weeks back, and since then it has progressively worsened, currently also has generalized abdominal pain. He has also been complaining of shortness of breath as well as nonproductive cough He has denied any fever chills, nausea vomiting, chest pain palpitation, lower extremity edema. Upon arrival in the ER he was worked up for above-mentioned complaint: Pertinent imaging studies: CT abdomen and pelvis without contrast: Has shownlarge ascites , with fatty liver. X-ray chest: Elevated diaphragm consistent with large ascites. No acute cardiopulmonary abnormality. Pertinent labs: WBC 10.8 H&H 15.5/ 46.4 plt : 198 , serum sodium 136 and potassium 3.8, BUN serum creatinine:4/0.4 , random blood sugar 125 Total bilirubin 3.1, AST 147, ALT 39, ALP 146 Albumin 2.8, Review of Systems General: Reports: 10 or more systems reviewed and unremarkable except in HPI and below Const: Denies: fever(s), chills, body aches, change in appetite or diaphoresis Card: Denies: palpitations, swelling of feet/ankles, dyspnea on exertion or leg pain with exertion Resp: Reports: dyspnea; Denies: wheezing or pain on inspiration GI: Reports: abdominal pain; Denies: nausea, vomiting, diarrhea or constipation : Denies: flank pain or difficulty urinating Musc: Denies: back pain, extremity pain or extremity swelling Neuro: Denies: headache(s), difficulty walking or confusion Medications/Allergies Home Medications Medication Instructions Recorded Confirmed Last Taken Type paliperidone palmitate 234 mg/1.5 234 mg (1.5 mL) IM Q30D #1.5 mL 02/05/22 04/14/22 Unknown Rx mL intramuscular syringe (Invega Sustenna) citalopram 40 mg tablet (Celexa) 40 mg PO DAILY #30 tabs 02/20/22 04/14/22 03/10/22 Rx hydroxyzine HCl 25 mg tablet 25 mg PO BID PRN anxiety #60 tabs 02/20/22 04/14/22 Unknown Rx paliperidone 3 mg tablet,extended 3 mg PO QAM #30 tabs 02/20/22 04/14/22 03/10/22 Rx release 24 hr (Invega) Allergies Allergy/AdvReac Type Severity Reaction Status Date / Time clozapine [From Clozaril] AdvReac Severe Lowered Verified 02/23/22 09:13 his WBC he says divalproex sodium AdvReac Severe swelling Verified 02/23/22 09:13 [From Depakote] haloperidol [From Haldol] AdvReac Severe swelling Verified 02/23/22 09:13 nitroglycerin AdvReac Severe Stopped Verified 02/23/22 09:13 heart Bee stings Allergy Severe Swelling & Uncoded 02/23/22 09:13 breathing problems, Anaphylactic shock PFSH Acute PFSH: Medical History Acne rosacea Alcohol dependence, uncomplicated Bipolar disorder Controlled diabetes mellitus with hyperglycemia Current smoker DM neuropathy, painful Essential (primary) hypertension History of alcohol abuse daily use of hard liquor History of coronary artery disease History of CVA (cerebrovascular accident) 2009 Right side weakness due to a bleed History of memory loss History of schizophrenia Mixed hyperlipidemia Nicotine dependence, cigarettes, uncomplicated Psoriasis Psychiatric care Seizure disorder Surgical History History of colonoscopy with polypectomy 2015 History of esophagogastroduodenoscopy (EGD) History of eye surgery History of heart artery stent Family History Other Dementia Diabetes Hypertension Lung disease Psychiatric illness Stroke Denies family history of Chronic kidney disease (CKD) Anesthesia complication Bleeding disorder Cancer Social History Smoking and tobacco status: current every day smoker cigarettes Packs smoked per day: 2.5 Years cigarettes smoked: 38 Second hand smoke exposure: Yes Smoking risk assessment/counseling performed?: Yes Alcohol intake: current Alcohol intake frequency: 0-2 Drinks per Day Alcohol type: hard liquor Desire information about alcohol rehabilitation?: No Counseling given: No Desire information about substance/drug rehabilitation?: No Counseling given: No Adopted: No Caregiver/support person: Yes Lives independently: No Household members: friend(s) and caregiver Housing: Manufactured/Mobile home Marital status: Number of children: 8 service: No Current occupational status: disabled Pets and animals: Yes History of recent travel: Yes Details: month an a half ago Out of state: Yes Current gender identity: Male Vitals/I&O/Wt Last Vital Signs Temp 99.1 F 04/14/22 10:10 Pulse 114 H 04/14/22 12:08 Resp 18 04/14/22 10:40 BP 145/89 04/14/22 12:08 Pulse Ox 93 04/14/22 12:08 O2 Del Method 04/14/22 12:08 O2 Flow Rate 2 04/14/22 10:40 Weight last 48 hrs Weight 105.233 kg Physical Exam Const: COMMON NORMALS: patient oriented x3 Resp: COMMON NORMALS: clear to auscultation bilaterally EFFORT & INSPECTION: Yes symmetric chest movement AUSCULTATION: clear to auscultation bilaterally Cardio: COMMON NORMALS: regular rate, regular rhythm, S1 normal heart sound present, S2 normal heart sound present, No gallops present (Cardio), No murmurs present (Cardio), No rub (Cardio) and Peripheral pulses 2+ throughout RATE: regular rate RHYTHM: regular rhythm HEART SOUNDS: S1 normal heart sound present and S2 normal heart sound present PERIPHERAL PULSES: Peripheral pulses 2+ throughout GI: AUSCULTATION: Yes normoactive bowel sounds PALPATION: Yes Soft to palpation and Yes No hepatosplenomegaly present RECTAL EXAM: Yes deferred OTHER: Gross abdominal distention, generalized abdominal tenderness no guarding no rigidity no rebound tenderness, normoactive bowel sound Extremity: COMMON NORMALS: no clubbing, cyanosis or edema and no pedal edema Neuro: COMMON NORMALS: patient oriented x3 Data : 04/14/22 10:30 04/14/22 10:30 Micro: Microbiology 04/14/22 11:01 Blood Culture - Preliminary Blood SPECIMEN COLLECTED 04/14/22 11:04 Blood Culture - Preliminary Blood SPECIMEN COLLECTED A&P Assessment and plan (1) Alcohol dependence, uncomplicated: (2) Cerebrovascular accident (CVA): (3) History of coronary artery disease: (4) Ascites: Plan 46 year old male with past medical history of chronic alcohol use, drinks daily ,came in with chief complaint of Worsening abdominal swelling, started about 2 weeks back, and since then it has progressively worsened, currently also has generalized abdominal pain. He has also been complaining of shortness of breath as well as nonproductive cough He has denied any fever chills, nausea vomiting, chest pain palpitation, lower extremity edema. 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 Anticipated length of stay greater than 2 midnights Time Spent in Patient Care: Greater than 35 minutes (>than 50% of time spent in counselling and/or direct pt care on unit) . Coding Level of Care Code Acute Hog Killer for g Fwd Exam Detailed Diagnoses Alcohol dependence, uncomplicated F10.20 Cerebrovascular accident (CVA) I63.9 History of coronary artery disease Z86.79 Ascites R18.8
[2022-04-14 12:13] LABS: Add Urine Microscopic? YES
[2022-04-14 12:15] LABS: Squamous Epithelial Cell Urine RARE /hpf (0-5)
[2022-04-14 12:16] LABS: Bacteria Urine 4+ /hpf
[2022-04-14 12:17] LABS: Mucus Urine 3+ /hpf
[2022-04-14 12:18] LABS: Add Urine Culture? Yes
--- NOTE | 2022-04-14 12:20 | PC.PHAR ---
pt states he has not taken any of his meds in about a month
--- NOTE | 2022-04-14 12:21 | ECG_ITS ---
[facility] Test Date: 2022-04-14 Pat Name: Reinaldo Flores Department: Room: Gender: Male Software Licensing Analyst: : 1975 Requested By: Anson Layne Order Number: [id number] Sharon MD: Deepali Nj M.D. Measurements Intervals [place] Rate: 114 P: 47 OK: 158 QRS: -22 QRSD: 90 T: -4 QT: 336 QTc: 463 Interpretive Statements SINUS TACHYCARDIA LOW QRS VOLTAGE IN PRECORDIAL LEADS [QRS DEFLECTION < 1.0 mV IN CHEST LEADS] ANTEROSEPTAL MYOCARDIAL INFARCTION , PROBABLY OLD [40+ ms Q WAVE IN V1-V4] Compared to ECG 04/14/2022 10:28:37 Low QRS voltage now present Myocardial infarct finding still present Electronically Signed On 04-14-2022 15:45:09 CDT by Deepali Nj M.D. [id number]
[2022-04-14] MEDS: morphine 4 mg/mL SDV 1 mL IVP (12:25)
[2022-04-14 12:26] LABS: Hepatitis B Surface AB < 3.5 (11.5-1000)
[2022-04-14] MEDS: pantoprazole 40 mg SDV IVP (12:27)
[2022-04-14 13:16] LABS: Troponin 5 2HR 19.87 ng/L (0-15)
[2022-04-14 13:33] LABS: Troponin 5 2HR Delta -0.13 ABS# (0-10)
[2022-04-14] MEDS: FUROsemide 10 mg/mL SDV 4mL 40 MG IVP (16:21)
--- NOTE | 2022-04-14 16:37 | ECG_ITS ---
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 Measurements Intervals [place] Rate: 110 P: 41 ID: [id number] QRS: -27 QRSD: 102 T: 14 QT: 318 QTc: 431 Interpretive Statements SINUS TACHYCARDIA LOW QRS VOLTAGE IN PRECORDIAL LEADS [QRS DEFLECTION < 1.0 mV IN CHEST LEADS] ANTEROSEPTAL MYOCARDIAL INFARCTION , PROBABLY OLD [40+ ms Q WAVE IN V1-V4] Compared to ECG 04/14/2022 12:16:00 No significant changes Electronically Signed On 04-15-2022 9:47:45 TANK SHOP SUPERVISOR by Deepali Nj M.D. [id number]
[2022-04-14] MEDS: morphine 4 mg/mL SDV 1 mL 2 MG IVP (18:32)
[2022-04-14 18:46] LABS: Troponin 5 6HR 19.78 ng/L (0-15)
[2022-04-14 18:47] LABS: Troponin 5 6HR Delta -0.22 ng/L (0-12)
[2022-04-15] VITALS (12 sets, daily range): BP systolic 113–126; BP diastolic 71–81; PULSE 92–106; RESP 14–24; TEMP 36.7–37; O2SAT 90–93
[2022-04-15] MEDS: morphine 4 mg/mL SDV 1 mL 2 MG IVP ×3 (04:34→19:23)
[2022-04-15 05:38] LABS: Basophils # 0.1 10^3/uL (0.0-0.1); Basophils % 0.9 %; Eosinophils # 0.2 10^3/uL (0.0-0.8); Eosinophils % 2.5 %; Hematocrit 44.3 % (42.0-52.0); Hemoglobin 14.7 g/dL (11.7-16.6); Lymphocytes # 1.1 10^3/uL (0.8-4.8); Lymphocytes % 11.9 %; Mean Corpuscular HGB Conc 33.2 g/dL (30.0-36.0); Mean Corpuscular Hemoglobin 35.1 pg (28.0-34.0); Mean Corpuscular Volume 105.7 fl (80-94); Mean Platelet Volume 11.5 fL (7.4-10.4); Monocytes # 0.9 10^3/uL (0.2-0.9); Monocytes % 9.9 %; Neutrophils # 6.83 10^3/uL (1.8-7.7); Neutrophils % 74.4 %; Nucleated Red Blood Cells % 0 %; Platelet Count 183 10^3/cmm (130-400); Red Blood Count 4.19 10^6/uL (4.1-5.3); White Blood Count 9.2 10^3/uL (4.0-10.0)
[2022-04-15 06:02] LABS: Alanine Aminotransferase 33 U/L (0-41); Albumin Level 2.6 g/dL (3.5-5.2); Alkaline Phosphatase 130 U/L (40-130); Anion Gap 14.3 (5-19); Aspartate Amino Transferase 121 U/L (0-40); Blood Urea Nitrogen 5 mg/dL (6-20); Carbon Dioxide 28 mmol/L (22-29); Chloride 96 mmol/L (98-107); Globulin 4.2 g/dL (1.3-4.6); Glomerular Filtration Rate 229.6 mL/min (90-130); Glucose 116 mg/dL (65-115); Magnesium 1.5 mg/dL (1.7-2.3); Osmolality Calculated 278 mOsm/kg (285-295); Phosphorus 2.6 mg/dL (2.5-4.5); Potassium 3.3 mmol/L (3.5-5.1); Sodium 135 mmol/L (136-145); Total Bilirubin 3.2 mg/dL (0.15-1.2); Total Protein 6.8 g/dL (6.6-8.7)
[2022-04-15] MEDS: cefTRIAXone 1,000 MG in sodium chloride 0.9% (plus) 50 ML 100 MG IV (06:07)
--- NOTE | 2022-04-15 07:55 | USR_ITS ---
PROCEDURE INFORMATION: Exam: US Abdomen; Limited Exam date and time: 04/15/2022 9:45 AM Age: 46 years old Clinical indication: Abnormal findings; Abnormal radiologic finding of the abdomen; Radiologic exam and body structure: Asites seen on CT; Additional info: Paracentesis TECHNIQUE: Imaging protocol: Real time ultrasound of the abdomen with image documentation. Limited exam focused on the region of clinical interest. COMPARISON: CT abdomen pelvis con [id number] 04/14/2022 10:35 AM FINDINGS: Sonogram of the left lower quadrant shows a large volume of free fluid corresponding to ascites. This finding corresponds to changes noted on a CT examination of the abdomen and pelvis. US/US abdomen limited [id number] IMPRESSION: Large volume of free fluid in the left lower quadrant consistent with ascites
[2022-04-15] MEDS: folic acid 1 mg Tablet PO (08:50)
[2022-04-15] MEDS: citalopram 20 mg Tablet 40 MG PO (08:50)
[2022-04-15] MEDS: spironolactone 25 mg Tablet PO (08:50)
--- NOTE | 2022-04-15 11:14 | PM.ACPR ---
Acute Procedures Paracentesis: Time out performed: Yes Indication: Ascites Procedure: therapeutic paracentesis Location: LLQ Local anesthetic used: lidocaine 1% Amount of anesthesia used (ml): 10 Bedside ultrasound used: yes, real-time guidance Preparation: sterile prep and drape and 11 blade used to make grecia in skin Amount of fluid obtained (ml): 6,000 Fluid: clear and sent to lab for analysis Post procedure exam: awake, alert, normal BP, normal HR and normal SpO2 Patient tolerated procedure: well and no complications Complications: none
[2022-04-15] MEDS: pantoprazole 40 mg SDV IVP (13:35)
[2022-04-15] MEDS: magnesium sulfate premix 2 GM/50 ML PIGGYBACK IV (13:38)
[2022-04-15] MEDS: lidocaine 1% 5 ML in potassium chloride premix 100 ML 50 ML IV (14:33)
[2022-04-15 15:36] LABS: Mononuclear #, Pertinoneal Fl 0.079 10^3/uL; Polynuclear # Cells, Perit 0.033 10^3/uL
[2022-04-15 15:50] LABS: Color, Peritoneal Fluid Pale Yellow (Pale Yellow); RBC Pertioneal Fluid 0 10^3/uL; WBC Peritoneal Fluid 112 /uL
[2022-04-15 15:51] LABS: Appearance, Peritoneal Fluid Clear (Clear); Pathology Referral Yes
[2022-04-15 15:59] LABS: Albumin Body Fluid 0.6 g/dL; Total Protein Body Fluid 1.2 g/dL
--- NOTE | 2022-04-15 16:37 | P.PN_ITS ---
Subjective Subjective: Patient was seen and examined this morning, responded pretty well to Lasix IV yesterday, reports good urine output yesterday though not documented, underwent paracentesis today, with removal of 6 Ls pale yellow fluid, patient tolerated the procedure well, was hemodynamically stable throughout the procedure, ascitic fluid analysis has been sent. Will give him 25 GM albumin IV every 8 hours for 1 day. Patient did not meet the criteria for protocol IV albumin infusion given on day 1 and day 3 as per body weight. Medications: Medication Review Details: Generic Name Dose Route Start Last Admin Trade Name Freq PRN Reason Stop Dose Admin Citalopram Hydrobr omide 40 mg 04/15/22 09:00 04/15/22 08:50 Citalopram 20 Mg Tablet PO 40 mg DAILY SAMANTA Administration Enoxaparin Sodium 40 mg 04/14/22 12:15 04/14/22 12:23 Enoxaparin 40 Mg /0.4 Ml Syringe SUBCUT Not Given Q24H SAMANTA Folic Acid 1 mg 04/15/22 09:00 04/15/22 08:50 Folic Acid 1 Mg Tablet PO 1 mg DAILY SAMANTA Administration Furosemide 40 mg 04/14/22 15:30 04/14/22 16:21 Furosemide 10 Mg /Ml Sdv 4ml IVP 40 mg Q24H SAMANTA Administration Ceftriaxone Sodium 1,000 mg/ 50 mls @ 100 mls/ hr 04/15/22 07:00 04/15/22 07:08 Sodium Chloride IV Infused Q24H SAMANTA Infusion Protocol Albumin Human 25 gm in 100 mls @ 60 mls/hr 04/15/22 11:30 04/15/22 13:24 Albumin IV Infused Q8H SAMANTA Infusion Morphine Sulfate 2 mg 04/14/22 12:05 04/15/22 08:54 Morphine 4 Mg/Ml Sdv 1 Ml IVP 2 mg Q4H PRN Administration SEVERE PAIN Pantoprazole Sodiu m 40 mg 04/14/22 12:15 04/15/22 13:35 Pantoprazole 40 Mg Sdv IVP 40 mg Q24H SAMANTA Administration Spironolactone 25 mg 04/15/22 09:00 04/15/22 08:50 Spironolactone 2 5 Mg Tablet PO 25 mg DAILY SAMANTA Administration Thiamine HCl 100 mg 04/15/22 09:00 04/15/22 08:54 Thiamine 100 Mg/ Ml Sdv IVP 100 mg DAILY SAMANTA Administration Vitals/I&O/Wt Last Vital Signs Temp 98.3 F 04/15/22 15:24 Pulse 97 04/15/22 15:24 Resp 19 H 04/15/22 15:24 BP 122/81 04/15/22 15:24 Pulse Ox 90 04/15/22 15:24 O2 Del Method 04/15/22 15:24 O2 Flow Rate 2 04/15/22 08:00 04/15/22 04/15/22 04/15/22 06:59 14:59 22:59 Intake Total 1160 / 1160 Balance 1160 / 1160 Weight last 48 hrs Weight 105.778 kg Weight 105.233 kg Physical Exam Const: COMMON NORMALS: patient oriented x3 Resp: COMMON NORMALS: clear to auscultation bilaterally EFFORT & INSPECTION: Yes symmetric chest movement AUSCULTATION: clear to auscultation bilaterally Cardio: COMMON NORMALS: regular rate, regular rhythm, S1 normal heart sound present, S2 normal heart sound present, No gallops present (Cardio), No murmurs present (Cardio), No rub (Cardio) and Peripheral pulses 2+ throughout RATE: regular rate RHYTHM: regular rhythm HEART SOUNDS: S1 normal heart sound present and S2 normal heart sound present PERIPHERAL PULSES: Peripheral pulses 2+ throughout GI: COMMON NORMALS: Soft to palpation and No hepatosplenomegaly present AUSCULTATION: Yes normoactive bowel sounds PALPATION: Yes Soft to palpation and Yes No hepatosplenomegaly present RECTAL EXAM: Yes deferred OTHER: Gross abdominal distention, generalized abdominal tenderness no guarding no rigidity no rebound tenderness, normoactive bowel sound Extremity: COMMON NORMALS: no clubbing, cyanosis or edema and no pedal edema Neuro: COMMON NORMALS: patient oriented x3 Data : 04/15/22 05:10 04/15/22 05:10 Micro: Microbiology 04/14/22 11:01 Blood Culture - Preliminary Blood NEGATIVE TO DATE 04/14/22 11:04 Blood Culture - Preliminary Blood NEGATIVE TO DATE A&P Assessment and plan (1) Alcohol dependence, uncomplicated: (2) Cerebrovascular accident (CVA): (3) History of coronary artery disease: (4) Ascites: Plan 46 year old male with past medical history of chronic alcohol use, drinks daily ,came in with chief complaint of Worsening abdominal swelling, started about 2 weeks back, and since then it has progressively worsened, currently also has generalized abdominal pain. He has also been complaining of shortness of breath as well as nonproductive cough He has denied any fever chills, nausea vomiting, chest pain palpitation, lower extremity edema. 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 Ascitic l fluid analysis Blood culture: 06/13 positive for gram-positive cocci in cluster. Hepatitis panel: Nonreactive Monitor CMP Empirically on ceftriaxone On thiamine and folic acid Monitor CIWA score CODE STATUS: Full code DVT prophylaxis on Lovenox Attestations Medical Necessity Statement*: Patient needs to be in hospital for management of symptomatic ascites. Time Spent in Patient Care: Greater than 35 minutes (>than 50% of time spent in counselling and/or direct pt care on unit) . Coding Level of Care Code Acute Portable Pinch [place] for Chg Fwd Diagnoses Alcohol dependence, uncomplicated F10.20 Cerebrovascular accident (CVA) I63.9 History of coronary artery disease Z86.79 Ascites R18.8
[2022-04-15] MEDS: magnesium lactate 84 mg Tablet PO (17:31)
[2022-04-16 03:39] VITALS: BP 118/68; PULSE 84; RESP 18; TEMP 36.7; O2SAT 90
[2022-04-16 05:42] LABS: Basophils # 0.1 10^3/uL (0.0-0.1); Basophils % 0.8 %; Eosinophils # 0.2 10^3/uL (0.0-0.8); Eosinophils % 3.8 %; Hematocrit 39.5 % (42.0-52.0); Lymphocytes # 0.9 10^3/uL (0.8-4.8); Lymphocytes % 13.9 %; Mean Corpuscular HGB Conc 32.9 g/dL (30.0-36.0); Mean Corpuscular Hemoglobin 34.5 pg (28.0-34.0); Mean Corpuscular Volume 104.8 fl (80-94); Mean Platelet Volume 11.7 fL (7.4-10.4); Monocytes # 0.7 10^3/uL (0.2-0.9); Monocytes % 10.3 %; Neutrophils # 4.47 10^3/uL (1.8-7.7); Neutrophils % 70.9 %; Nucleated Red Blood Cells % 0 %; Platelet Count 145 10^3/cmm (130-400); Red Blood Count 3.77 10^6/uL (4.1-5.3); Red Cell Distribution Width 12.7 % (12.1-15.1); White Blood Count 6.3 10^3/uL (4.0-10.0)
[2022-04-16 06:01] LABS: Alanine Aminotransferase 26 U/L (0-41); Albumin Level 2.8 g/dL (3.5-5.2); Alkaline Phosphatase 100 U/L (40-130); Anion Gap 9.1 (5-19); Aspartate Amino Transferase 96 U/L (0-40); Blood Urea Nitrogen 4 mg/dL (6-20); Calcium 7.8 mg/dL (8.5-10.5); Carbon Dioxide 28 mmol/L (22-29); Chloride 97 mmol/L (98-107); Globulin 3.5 g/dL (1.3-4.6); Glomerular Filtration Rate 229.6 mL/min (90-130); Glucose 99 mg/dL (65-115); Osmolality Calculated 269 mOsm/kg (285-295); Potassium 3.1 mmol/L (3.5-5.1); Sodium 131 mmol/L (136-145); Total Bilirubin 2.7 mg/dL (0.15-1.2); Total Protein 6.3 g/dL (6.6-8.7)
[2022-04-16] MEDS: cefTRIAXone 1,000 MG in sodium chloride 0.9% (plus) 50 ML 100 MG IV (06:36)
[2022-04-16 07:58] VITALS: BP 135/84; PULSE 93; RESP 15; TEMP 36.7; O2SAT 93
[2022-04-16 08:00] VITALS: PULSE 103; RESP 18; O2SAT 96
--- NOTE | 2022-04-16 09:39 | PM.DCS ---
Discharge Providers Date of Admission: 04/14/22 11:58 Date of Discharge: April 16, 2022 Attending Provider at Admission: Maikol Ordoñez MD Attending Provider at Discharge: Maikol Ordoñez MD Primary Care Provider: YENI Martel Diagnoses at Discharge Discharge Diagnosis (1) Alcohol dependence, uncomplicated: Status: Acute (2) Cerebrovascular accident (CVA): Status: Acute (3) History of coronary artery disease: Status: Chronic (4) Ascites: Status: Acute Reason for Visit Reason for Visit: abd bloat/pain Hospital Course Hospital Course Reinaldo Flores is a 46 year old male with past medical history of chronic alcohol use, came in with chief complaint of Worsening abdominal swelling, started about 2 weeks back, and since then it has progressively worsened, currently also has generalized abdominal pain. He was admitted for the management of gross symptomatic ascites secondary to decompensated liver cirrhosis secondary to alcohol abuse: Patient underwent ultrasound-guided paracentesis, with removal of 6 Ls song yellow ascitic fluid, ascitic fluid analysis ruled out SBP: Initially patient was empirically kept on ceftriaxone, for possible SBP, no antibiotic was continued on discharge, hepatitis panel was negative, he was discharged on spironolactone 25 mg p.o. twice daily, as well as Lasix 40 p.o. daily, as he still has moderate ascites, patient has been asked to Follow-up with a brass molder, either at the [place] or at [facility] , but till that time an appointment is made He will need to follow-up with his primary care physician, in a week to 10 days time, with repeat CMP magnesium, and at that point in time dose titration for spironolactone and Lasix can be done. Blood culture during the hospital stay grew 1 out of 4 bottles of coagulase-negative staph: Likely contaminant. Overall patient responded well to above medical management and is being discharged in stable condition to home.He has also been counseled regarding quitting alcohol abuse. Physical Exam Const: COMMON NORMALS: patient oriented x3 Resp: COMMON NORMALS: clear to auscultation bilaterally EFFORT & INSPECTION: Yes symmetric chest movement AUSCULTATION: clear to auscultation bilaterally Cardio: COMMON NORMALS: regular rate, regular rhythm, S1 normal heart sound present, S2 normal heart sound present, No gallops present (Cardio), No murmurs present (Cardio), No rub (Cardio) and Peripheral pulses 2+ throughout RATE: regular rate RHYTHM: regular rhythm HEART SOUNDS: S1 normal heart sound present and S2 normal heart sound present PERIPHERAL PULSES: Peripheral pulses 2+ throughout GI: COMMON NORMALS: Soft to palpation and No hepatosplenomegaly present AUSCULTATION: Yes normoactive bowel sounds PALPATION: Yes Soft to palpation and Yes No hepatosplenomegaly present RECTAL EXAM: Yes deferred OTHER: Distended abdomen with generalized abdominal tenderness, normoactive bowel sounds. Extremity: COMMON NORMALS: no clubbing, cyanosis or edema and no pedal edema Neuro: COMMON NORMALS: patient oriented x3 Discharge Data Studies Completed and Pending Completed Studies During Hospitalization Category Date Time Status CT abdomen pelvis wo con [id number] Stat Cat Scan 04/14/22 10:21 Completed XR chest 1V portable [id number] Stat Exams 04/14/22 10:21 Completed US abdomen limited [id number] Routine Ultrasound 04/15/22 07:55 Completed Pending at discharge Category Date Time Status Blood Culture Stat Lab 04/14/22 11:01 Results Body Fluid Culture & GS Routine Lab 04/15/22 10:02 Received Complete Blood Count w/Auto AM LABS Lab 04/17/22 04:00 Ordered Comprehensive Metabolic Panel AM LABS Lab 04/17/22 04:00 Ordered Radiology Impressions Abdomen/Pelvis CT 04/14/22 10:21 IMPRESSION: 1. Severely fatty liver. 2. Large ascites. 3. Diverticulosis. 4. No other acute abnormalities are seen. Chest X-Ray 04/14/22 10:21 IMPRESSION: Elevated diaphragm consistent with large ascites. No acute cardiopulmonary abnormality. Abdomen Ultrasound 04/15/22 07:55 IMPRESSION: Large volume of free fluid in the left lower quadrant consistent with ascites Laboratory Results WBC 6.3 10^3/uL (4.0-10.0) 04/16/22 05:05 RBC 3.77 10^6/uL (4.1-5.3) L 04/16/22 05:05 Hgb 13.0 g/dL (11.7-16.6) 04/16/22 05:05 Hct 39.5 % (42.0-52.0) L 04/16/22 05:05 MCV 104.8 fl (80-94) H 04/16/22 05:05 MCH 34.5 pg (28.0-34.0) H 04/16/22 05:05 MCHC 32.9 g/dL (30.0-36.0) 04/16/22 05:05 RDW 12.7 % (12.1-15.1) 04/16/22 05:05 Plt Count 145 10^3/cmm (130-400) 04/16/22 05:05 MPV 11.7 fL (7.4-10.4) H 04/16/22 05:05 Neut % (Auto) 70.9 % 04/16/22 05:05 Lymph % (Auto) 13.9 % 04/16/22 05:05 [place] % (Auto) 10.3 % 04/16/22 05:05 Eos % (Auto) 3.8 % 04/16/22 05:05 Baso % (Auto) 0.8 % 04/16/22 05:05 Neut # (Auto) 4.47 10^3/uL (1.8-7.7) 04/16/22 05:05 Lymph # (Auto) 0.9 10^3/uL (0.8-4.8) 04/16/22 05:05 [place] # (Auto) 0.7 10^3/uL (0.2-0.9) 04/16/22 05:05 Eos # (Auto) 0.2 10^3/uL (0.0-0.8) 04/16/22 05:05 Baso # (Auto) 0.1 10^3/uL (0.0-0.1) 04/16/22 05:05 Nucleated RBC % (auto) 0 % 04/16/22 05:05 Total Counted Cancelled 04/15/22 10:02 Nucleated RBCs # 0.0 /100WBC 04/16/22 05:05 PT 15.90 SECONDS (12.1-14.9) H 04/14/22 10:30 INR 1.24 (0.8-1.2) H 04/14/22 10:30 Sodium 131 mmol/L (136-145) L 04/16/22 05:05 Potassium 3.1 mmol/L (3.5-5.1) L 04/16/22 05:05 Chloride 97 mmol/L (98-107) L 04/16/22 05:05 Carbon Dioxide 28 mmol/L (22-29) 04/16/22 05:05 Anion Gap 9.1 (5-19) 04/16/22 05:05 BUN 4 mg/dL (6-20) L 04/16/22 05:05 Creatinine 0.4 mg/dL (0.7-1.2) L 04/16/22 05:05 GFR Calculation 229.6 mL/min (90-130) H 04/16/22 05:05 Glucose 99 mg/dL (65-115) 04/16/22 05:05 Calculated Osmolality 269 mOsm/kg (285-295) L 04/16/22 05:05 Calcium 7.8 mg/dL (8.5-10.5) L 04/16/22 05:05 Phosphorus 2.6 mg/dL (2.5-4.5) 04/15/22 05:10 Magnesium 1.5 mg/dL (1.7-2.3) L 04/15/22 05:10 Total Bilirubin 2.7 mg/dL (0.15-1.2) H 04/16/22 05:05 AST 96 U/L (0-40) H 04/16/22 05:05 ALT 26 U/L (0-41) 04/16/22 05:05 Alkaline Phosphatase 100 U/L (40-130) 04/16/22 05:05 Troponin T Baseline 20 ng/L (0-15) H 04/14/22 10:30 Troponin T 120 Minute 19.87 ng/L (0-15) H 04/14/22 12:51 Delta Troponin T -0.13 ABS# (0-10) L 04/14/22 12:51 Troponin T Hi Sens 6Hr 19.78 ng/L (0-15) H 04/14/22 17:58 Troponin T Hi Sens 6Hr Delta -0.22 ng/L (0-12) L 04/14/22 17:58 Total Protein 6.3 g/dL (6.6-8.7) L 04/16/22 05:05 Albumin 2.8 g/dL (3.5-5.2) L 04/16/22 05:05 Globulin 3.5 g/dL (1.3-4.6) 04/16/22 05:05 Lipase 111 U/L (13-60) H 04/14/22 10:30 Urine Color [place] (Yellow) 04/14/22 11:37 Urine Appearance Hazy (CLEAR) A 04/14/22 11:37 Urine pH 5 (5-7) 04/14/22 11:37 Ur Specific [place] 1.020 (1.005-1.030) 04/14/22 11:37 Urine Protein TNP 04/14/22 11:37 Urine Glucose (UA) TNP 04/14/22 11:37 Urine Ketones TNP 04/14/22 11:37 Urine Blood TNP 04/14/22 11:37 Urine Nitrate TNP 04/14/22 11:37 Urine Bilirubin TNP 04/14/22 11:37 Urine Urobilinogen TNP 04/14/22 11:37 Ur Leukocyte Esterase TNP 04/14/22 11:37 Urine RBC None /hpf (0-2) 04/14/22 11:37 Urine WBC 5-10 /hpf (0-5) H 04/14/22 11:37 Ur Squamous Epith Cells Rare /hpf (0-5) 04/14/22 11:37 Amorphous Sediment Not Reportable 04/14/22 11:37 Urine Bacteria 4+ /hpf (NONE) H 04/14/22 11:37 Urine Mucus 3+ /hpf 04/14/22 11:37 Fluid Total Protein 1.2 g/dL 04/15/22 10:02 Fluid Albumin 0.6 g/dL 04/15/22 10:02 Peritoneal Color Pale yellow (Pale Yellow) 04/15/22 10:02 Peritoneal Appearance Clear (Clear) 04/15/22 10:02 Peritoneal WBC 112 /uL 04/15/22 10:02 Peritoneal RBC 0 10^3/uL 04/15/22 10:02 Periton Mononu # Auto 0.079 10^3/uL 04/15/22 10:02 Mononuclear WBCs % 70.500 % 04/15/22 10:02 Polynuclear WBCs % 29.500 % 04/15/22 10:02 Perit Polynuc WBCs # 0.033 10^3/uL 04/15/22 10:02 Peritoneal Diff Commnt Yes 04/15/22 10:02 Pleural Color Cancelled 04/15/22 10:02 Pleural Appearance Cancelled 04/15/22 10:02 Pleural WBC Cancelled 04/15/22 10:02 Pleural RBC Cancelled 04/15/22 10:02 Pleural Other Cells Cancelled 04/15/22 10:02 Pleural Polynuclear % Cancelled 04/15/22 10:02 Pleural Mononuclear % Cancelled 04/15/22 10:02 Hepatitis A IgM Ab Non-reactive (Nonreactive) 04/14/22 10:30 Hep Bs Antigen Non-reactive (Nonreactive) 04/14/22 10:30 Hep Bs Antibody < 3.5 (11.5-1000) L 04/14/22 10:30 Hep B Core Total Ab Non-reactive (Nonreactive) 04/14/22 10:30 Hepatitis C Antibody Non-reactive (Nonreactive) 04/14/22 10:30 SARS-CoV-2 Ag (Rapid) negative (Negative) 04/14/22 10:45 Path Cons w/Slide Cancelled 04/15/22 10:02 Vitals Last Vital Signs Temp 98.0 F 04/16/22 07:58 Pulse 103 H 04/16/22 08:00 Resp 18 04/16/22 08:00 BP 135/84 04/16/22 07:58 Pulse Ox 96 04/16/22 08:00 O2 Del Method 04/16/22 08:00 O2 Flow Rate 2 04/15/22 08:00 Discharge Plan Discharge Patient Disposition: Home Condition: Stable Prescriptions: New spironolactone 25 mg Tablet 25 mg PO BID 30 Days Qty: 60 0RF folic acid 1 mg Tablet 1 mg PO DAILY 30 Days Qty: 30 1RF Magtab 84 mg Tablet Extended Release 84 mg PO BID 30 Days Qty: 60 0RF Lasix 40 mg tablet 40 mg PO DAILY 30 Days Qty: 30 0RF Klor-Con M20 20 mEq tablet,ER particles/crystals 20 meq PO DAILY Qty: 30 0RF thiamine HCl (vitamin B1) 100 mg tablet 100 mg PO DAILY 30 Days Qty: 30 0RF Tylenol 325 mg tablet 325 mg PO Q6H PRN (Reason: fever or pain) Qty: 30 0RF Continued paliperidone [Invega] 3 mg tablet extended release 24hr 3 mg PO QAM Qty: 30 1RF hydroxyzine HCl 25 mg tablet 25 mg PO BID PRN (Reason: anxiety) Qty: 60 0RF citalopram [Celexa] 40 mg tablet 40 mg PO DAILY Qty: 30 1RF Invega Sustenna 234 mg/1.5 mL syringe 234 mg IM Q30D Qty: 1.5 0RF Discharge Orders: Discharge Order (Routine); Ordered 04/16/22 Ordered By: Maikol Ordoñez Other Ambulatory Orders: Comprehensive Metabolic Panel (Routine) Timeframe: 1 Week Facility: [facility] - Location: Lab - Main Lab Ordered By: Maikol Ordoñez Magnesium (Routine) Timeframe: 1 Week Facility: [facility] - Location: Lab - Main Lab Ordered By: Maikol Ordoñez Referrals: Joel Rivas FNP-C [Primary Care Provider] - 04/25/22 10:20 am Crow Levy MD [Physician] - 04/30/22 9:30 am Patient Instructions: Spironolactone (By mouth), Furosemide (By mouth), Thiamine (By mouth), Folic Acid (By mouth), Hypokalemia (GEN), Hypomagnesemia (GEN), Opioid Safety Discharge Attestations Time Spent in Discharge Care*: less than 30 min Quality Metrics Clinical Quality Measures [ No reported AMI, CVA or VTE this stay] Coding Level of Care Code Acute Chg FW DC note Diagnoses Alcohol dependence, uncomplicated F10.20 Cerebrovascular accident (CVA) I63.9 History of coronary artery disease Z86.79 Ascites R18.8
[2022-04-16] MEDS: lidocaine 1% 5 ML in potassium chloride premix 100 ML 50 ML IV (10:47)
[2022-04-16] MEDS: potassium chloride ER 20 mEq Tablet PO (10:48)
[2022-04-16] MEDS: magnesium lactate 84 mg Tablet PO (10:48)
[2022-04-16] MEDS: spironolactone 25 mg Tablet PO (10:49)
[2022-04-16] MEDS: citalopram 20 mg Tablet 40 MG PO (10:49)
[2022-04-16] MEDS: folic acid 1 mg Tablet PO (10:49)
== END 2022-04-16 11:55 | disposition home or self-care (01) | DRG 434 ==
LOC: ER 12:16 → MEDSURG 12:44
PROVIDERS: Admitting Provider Internal Medicine; Emergency Provider Emergency Medicine; PCP Nurse Practitioner; Visit Provider Internal Medicine
DX: K70.31 Alcoholic cirrhosis of liver with ascites (principal); F25.0 Schizoaffective disorder, bipolar type; E11.42 Type 2 diabetes mellitus with diabetic polyneuropathy; F17.210 Nicotine dependence, cigarettes, uncomplicated; I10 Essential (primary) hypertension; I25.10 Atherosclerotic heart disease of native coronary artery without angina pectoris; Z95.5 Presence of coronary angioplasty implant and graft; Z86.73 Personal history of transient ischemic attack (TIA), and cerebral infarction without residual deficits; E78.2 Mixed hyperlipidemia; F10.20 Alcohol dependence, uncomplicated
CPT/HCPCS: 36415; 71045; 74176; 76705; 80053; 80503; 81001; 82042; 83690; 83735; 84100; 84157; 84484; 85025; 85610; 86705; 86706; 86709; 86803; 87040; 87070; 87075; 87086; 87150; 87205; 87340; 87426; 89050; 93005; 94640; 96365; 96375; 99285; C9113; J0696; J1940; J2270; J3411; J3475; J3480; P9046

== ENCOUNTER 2022-04-27 17:52 | Observation (INO) | payer MEDICARE, MEDICAID, SELFPAY ==
[2022-04-27] VITALS (7 sets, daily range): BP systolic 103–126; BP diastolic 62–87; PULSE 97–110; RESP 18–30; TEMP 37.4; O2SAT 91–96; BMI 33.4
--- NOTE | 2022-04-27 18:52 | W.ED.ABDPA2 ---
HPI - Abdominal Pain General: Chief Complaint: Abdominal Pain Stated Complaint: abdominal pain, asciites Time Seen by Provider: 04/27/22 18:18 Source: patient History of Present Illness: 46-year-old male with history of alcoholic liver disease and ascites. He presents with worsening fluid retention in his belly, making him short of breath. He was seen by his nurse practitioner yesterday, and urged to come to the emergency room then, but did not. He presents on a Saturday evening with abdominal and chest pain, shortness of breath, and belly swelling. MD elicited complaint: abdominal pain Pertinent past history: other Onset (ago): day(s) Location: Diffuse Severity: severe Quality: aching and fullness Radiation: none Migration to: no migration Exacerbating factors: nothing Relieving factors: nothing Associated Symptoms: Reports nausea and poor appetite; Denies change in bowel habits, diarrhea, dysuria, fever(s), fecal incontinence and vomiting Review of Systems Const: Denies: fever(s) Card: Reports: chest pain Resp: Reports: dyspnea and non-productive cough; Denies: productive cough GI: Reports: nausea; Denies: vomiting, diarrhea, fecal incontinence or change in bowel habits : Denies: dysuria Musc: Reports: back pain PFSH ED PFSH: Medical History Acne rosacea Alcohol dependence, uncomplicated Bipolar disorder Cerebrovascular accident (CVA) Controlled diabetes mellitus with hyperglycemia Current smoker DM neuropathy, painful Essential (primary) hypertension History of alcohol abuse daily use of hard liquor History of coronary artery disease History of CVA (cerebrovascular accident) 2010 Right side weakness due to a bleed History of memory loss History of schizophrenia Mixed hyperlipidemia Nicotine dependence, cigarettes, uncomplicated Psoriasis Psychiatric care Seizure disorder Surgical History History of colonoscopy with polypectomy 2016 History of esophagogastroduodenoscopy (EGD) History of eye surgery History of heart artery stent Family History Other Dementia Diabetes Hypertension Lung disease Psychiatric illness Stroke Denies family history of Chronic kidney disease (CKD) Anesthesia complication Bleeding disorder Cancer Social History Smoking and tobacco status: current every day smoker cigarettes Packs smoked per day: 2.5 Years cigarettes smoked: 38 Second hand smoke exposure: Yes Smoking risk assessment/counseling performed?: Yes Alcohol intake: current Alcohol intake frequency: 0-2 Drinks per Day Alcohol type: hard liquor Desire information about alcohol rehabilitation?: No Counseling given: No Desire information about substance/drug rehabilitation?: No Counseling given: No Adopted: No Caregiver/support person: Yes Lives independently: No Household members: friend(s) and caregiver Housing: Manufactured/Mobile home Marital status: Number of children: 8 service: No Current occupational status: disabled Pets and animals: Yes History of recent travel: Yes Details: month an a half ago Out of state: Yes Current gender identity: Male Physical Exam Const: GENERAL APPEARANCE: cooperative and ill appearing; not comfortable HENMT: COMMON NORMALS: normocephalic, atraumatic and Normal external nose present HEAD & SCALP: normocephalic and atraumatic NOSE: Normal external nose present Eye: COMMON NORMALS: Equal, round and reactive pupils present, EOMs intact bilaterally and no scleral icterus PUPIL: Yes Equal, round and reactive pupils present Chest: CHEST: Yes Symmetrical chest wall rise Resp: EFFORT & INSPECTION: Yes tachypneic AUSCULTATION: rales and wheezes Cardio: COMMON NORMALS: regular rhythm RATE: tachycardic RHYTHM: regular rhythm GI: INSPECTION: No abdominal wall ecchymosis, Yes Abdominal wall edema and Yes abdominal distension PALPATION: Yes Firmness to palpation present (GI) and Yes Tenderness to palpation present (GI) (diffuse) Extremity: GENERAL: Yes edema Neuro: OTHER: asterixis present Psych: COMMON NORMALS: cooperative Procedures Paracentesis Time Out Performed: No Indication: Ascites Procedure: therapeutic paracentesis Location: LLQ Local Anesthetic: lidocaine 1% Amount of anesthesia used (mL): 10 Bedside Ultrasound Used: yes, Ascites confirmed and location marked Preparation: 11 blade used to make grecia in skin Amount of fluid obtained (mL): 6,300 Fluid: clear and sent to lab for analysis Size of Needle Used: 19 Post Procedure Exam: awake, alert and normal BP Patient Tolerated Procedure: well and no complications Complications: none Course Vital Signs: Vital signs: Vital Signs Temperature 98.4 F 04/28/22 12:00 Pulse Rate 83 04/28/22 13:56 Respiratory Rate 16 04/28/22 12:00 Blood Pressure 101/48 04/28/22 12:00 Pulse Oximetry 92 04/28/22 13:56 Oxygen Delivery Me thod 04/28/22 13:56 Oxygen Flow Rate 2 04/28/22 13:56 MDM - Abdominal Pain Medical Decision Making Patient with chronic liver disease presenting with shortness of breath and abdominal pain. White blood cell count is 10. He is hypoxic, requiring oxygen now. 6300 cc of peritoneal fluid drained by paracentesis in the ER. No complication. Blood pressure 107/67, heart rate 96. Saturations 88% on 2 L. Respirations are 17. He will be admitted for hypoxic respiratory failure and monitored for improvement in oxygenation status post paracentesis, with blood pressure checks etc. He will get albumin as well. Lab Data 04/27/22 19:35 04/27/22 19:35 Labs/Radiology: Radiology Impressions Chest X-Ray 04/27/22 18:57 IMPRESSION: No acute findings. Laboratory Results WBC 10.1 10^3/uL (4.0-10.0) H 04/27/22 19:35 RBC 4.24 10^6/uL (4.1-5.3) 04/27/22 19:35 Hgb 15.2 g/dL (11.7-16.6) 04/27/22 19:35 Hct 44.4 % (42.0-52.0) 04/27/22 19:35 MCV 104.7 fl (80-94) H 04/27/22 19:35 MCH 35.8 pg (28.0-34.0) H 04/27/22 19:35 MCHC 34.2 g/dL (30.0-36.0) 04/27/22 19:35 RDW 12.8 % (12.1-15.1) 04/27/22 19:35 Plt Count 158 10^3/cmm (130-400) 04/27/22 19:35 MPV 11.6 fL (7.4-10.4) H 04/27/22 19:35 Neut % (Auto) 73.6 % 04/27/22 19:35 Lymph % (Auto) 14.0 % 04/27/22 19:35 Coleman % (Auto) 9.0 % 04/27/22 19:35 Eos % (Auto) 2.1 % 04/27/22 19:35 Baso % (Auto) 0.8 % 04/27/22 19:35 Neut # (Auto) 7.40 10^3/uL (1.8-7.7) 04/27/22 19:35 Lymph # (Auto) 1.4 10^3/uL (0.8-4.8) 04/27/22 19:35 Coleman # (Auto) 0.9 10^3/uL (0.2-0.9) 04/27/22 19:35 Eos # (Auto) 0.2 10^3/uL (0.0-0.8) 04/27/22 19:35 Baso # (Auto) 0.1 10^3/uL (0.0-0.1) 04/27/22 19:35 Nucleated RBC % (auto) 0 % 04/27/22 19:35 Total Counted 100 04/27/22 22:32 Nucleated RBCs # 0.0 /100WBC 04/27/22 19:35 PT 16.10 SECONDS (12.1-14.9) H 04/27/22 19:35 INR 1.26 (0.8-1.2) H 04/27/22 19:35 Sodium 133 mmol/L (136-145) L 04/27/22 19:35 Potassium 3.5 mmol/L (3.5-5.1) 04/27/22 19:35 Chloride 94 mmol/L (98-107) L 04/27/22 19:35 Carbon Dioxide 30 mmol/L (22-29) H 04/27/22 19:35 Anion Gap 12.5 (5-19) 04/27/22 19:35 BUN 4 mg/dL (6-20) L 04/27/22 19:35 Creatinine 0.5 mg/dL (0.7-1.2) L 04/27/22 19:35 GFR Calculation 177.5 mL/min (90-130) H 04/27/22 19:35 Glucose 107 mg/dL (65-115) 04/27/22 19:35 Calculated Osmolality 273 mOsm/kg (285-295) L 04/27/22 19:35 Lactate 1.9 mmol/L (0.5-2.2) 04/27/22 19:35 Calcium 8.3 mg/dL (8.5-10.5) L 04/27/22 19:35 Magnesium 1.6 mg/dL (1.7-2.3) L 04/27/22 19:35 Total Bilirubin 2.1 mg/dL (0.15-1.2) H 04/27/22 19:35 AST 93 U/L (0-40) H 04/27/22 19:35 ALT 28 U/L (0-41) 04/27/22 19:35 Alkaline Phosphatase 117 U/L (40-130) 04/27/22 19:35 Ammonia 27 umol/L (16-60) 04/27/22 19:35 C-Reactive Protein 45.0 mg/L (0.0-4.9) H 04/27/22 19:35 Total Protein 6.9 g/dL (6.6-8.7) 04/27/22 19:35 Albumin 2.7 g/dL (3.5-5.2) L 04/27/22 19:35 Globulin 4.2 g/dL (1.3-4.6) 04/27/22 19:35 Lipase 133 U/L (13-60) H 04/27/22 19:35 Urine Color Dark yellow (Yellow) 04/27/22 19:47 Urine Appearance Clear (CLEAR) 04/27/22 19:47 Urine pH 6 (5-7) 04/27/22 19:47 Ur Specific [place] 1.015 (1.005-1.030) 04/27/22 19:47 Urine Protein Trace (Negative) 04/27/22 19:47 Urine Glucose (UA) Norm (Normal) 04/27/22 19:47 Urine Ketones 1+ (Negative) H 04/27/22 19:47 Urine Blood Neg (Negative) 04/27/22 19:47 Urine Nitrate Negative (Negative) 04/27/22 19:47 Urine Bilirubin 1+ (Negative) H 04/27/22 19:47 Urine Urobilinogen 4+ mg/dL (Negative) H 04/27/22 19:47 Ur Leukocyte Esterase Negative (Negative) 04/27/22 19:47 Urine RBC 0-4 /hpf (0-2) H 04/27/22 19:47 Urine WBC 0-4 /hpf (0-5) H 04/27/22 19:47 Ur Squamous Epith Cells 0-4 /hpf (0-5) H 04/27/22 19:47 Amorphous Sediment Not Reportable 04/27/22 19:47 Urine Bacteria None /hpf (NONE) 04/27/22 19:47 Urine Mucus 3+ /hpf 04/27/22 19:47 Peritoneal Color Cancelled 04/27/22 22:32 Peritoneal Appearance Cancelled 04/27/22 22:32 Peritoneal pH 7.0 04/27/22 22:32 Peritoneal WBC Cancelled 04/27/22 22:32 Peritoneal RBC Cancelled 04/27/22 22:32 Periton Mononu # Auto Cancelled 04/27/22 22:32 Mononuclear WBCs % Cancelled 04/27/22 22:32 Polynuclear WBCs % Cancelled 04/27/22 22:32 Perit Polynuc WBCs # Cancelled 04/27/22 22:32 Peritoneal Diff Commnt Cancelled 04/27/22 22:32 Peritoneal Tot Protein 1.5 g/dL 04/27/22 22:32 Peritoneal Albumin 0.7 g/dL 04/27/22 22:32 Peritoneal LDH 63.0 U/L 04/27/22 22:32 Peritoneal Glucose 120.0 mg/dL 04/27/22 22:32 Peritoneal Amylase 23 U/L (88-109) L 04/27/22 22:32 Pleural Color Yellow (Pale Yellow) H 04/27/22 22:32 Pleural Appearance Clear (CLEAR) 04/27/22 22:32 Pleural WBC 200.000 /uL (0-1000) 04/27/22 22:32 Pleural RBC 1.000 10^3/uL 04/27/22 22:32 Pleural Other Cells Not Reportable 04/27/22 22:32 Pleural Polynuclear % 28 % 04/27/22 22:32 Pleural Mononuclear % 73 % 04/27/22 22:32 Path Cons w/Slide Yes 04/27/22 22:32 Discharge Plan Discharge Patient Disposition: Admitted As Inpatient Admit Provider: Thi Snyder Clinical Impression: Ascites, Acute hypoxemic respiratory failure Condition: Stable Coding Level of Care Code ED Psychiatric Therapist for Chg Fwd Exam Comprehensive
--- NOTE | 2022-04-27 18:57 | XRR_ITS ---
PROCEDURE INFORMATION: Exam: XR Chest Exam date and time: 04/27/2022 8:01 PM Age: 46 years old Clinical indication: Pain; Chest pressure and other: Whole body, swelling of abd; Additional info: SOB TECHNIQUE: Imaging protocol: Radiologic exam of the chest. Views: 1 view. COMPARISON: CR (CHEST, ) 04/14/2022 10:29 AM FINDINGS: Lungs: Hypoinflated lungs. No consolidation. Pleural spaces: Unremarkable. No pleural effusion. No pneumothorax. Heart/Mediastinum: Unremarkable. No cardiomegaly. Bones/joints: Unremarkable. XR/XR chest 1V portable [id number] IMPRESSION: No acute findings.
[2022-04-27 20:00] LABS: Basophils # 0.1 10^3/uL (0.0-0.1); Basophils % 0.8 %; Eosinophils # 0.2 10^3/uL (0.0-0.8); Eosinophils % 2.1 %; Hematocrit 44.4 % (42.0-52.0); Hemoglobin 15.2 g/dL (11.7-16.6); Lymphocytes # 1.4 10^3/uL (0.8-4.8); Mean Corpuscular HGB Conc 34.2 g/dL (30.0-36.0); Mean Corpuscular Hemoglobin 35.8 pg (28.0-34.0); Mean Corpuscular Volume 104.7 fl (80-94); Mean Platelet Volume 11.6 fL (7.4-10.4); Monocytes # 0.9 10^3/uL (0.2-0.9); Neutrophils % 73.6 %; Nucleated Red Blood Cells % 0 %; Platelet Count 158 10^3/cmm (130-400); Red Blood Count 4.24 10^6/uL (4.1-5.3); Red Cell Distribution Width 12.8 % (12.1-15.1); White Blood Count 10.1 10^3/uL (4.0-10.0)
[2022-04-27 20:17] LABS: Alanine Aminotransferase 28 U/L (0-41); Albumin Level 2.7 g/dL (3.5-5.2); Alkaline Phosphatase 117 U/L (40-130); Anion Gap 12.5 (5-19); Aspartate Amino Transferase 93 U/L (0-40); Blood Urea Nitrogen 4 mg/dL (6-20); Calcium 8.3 mg/dL (8.5-10.5); Carbon Dioxide 30 mmol/L (22-29); Chloride 94 mmol/L (98-107); Globulin 4.2 g/dL (1.3-4.6); Glomerular Filtration Rate 177.5 mL/min (90-130); Glucose 107 mg/dL (65-115); Lipase 133 U/L (13-60); Magnesium 1.6 mg/dL (1.7-2.3); Osmolality Calculated 273 mOsm/kg (285-295); Potassium 3.5 mmol/L (3.5-5.1); Sodium 133 mmol/L (136-145); Total Bilirubin 2.1 mg/dL (0.15-1.2); Total Protein 6.9 g/dL (6.6-8.7)
[2022-04-27 20:19] LABS: Ammonia 27 umol/L (16-60); Lactate (Lactic Acid level) 1.9 mmol/L (0.5-2.2)
[2022-04-27 20:20] LABS: INR 1.26 (0.8-1.2)
[2022-04-27] MEDS: morphine 4 mg/mL SDV 1 mL IVP ×2 (20:23→22:55)
[2022-04-27] MEDS: ondansetron 2 mg/ML SDV 2 mL 4 MG IVP ×2 (20:24→22:54)
[2022-04-27 20:27] LABS: Urine Color Dark Yellow (Yellow)
[2022-04-27 20:28] LABS: Add Urine Culture? No; Add Urine Microscopic? YES; Bilirubin Urine 1+ (Negative); Blood Urine Neg (Negative); Glucose Urine UA Norm (Normal); Ketones Urine 1+ (Negative); Leukocyte Esterase Urine Negative (Negative); Mucus Urine 3+ /hpf; Nitrate Urine Negative (Negative); Protein Urine Trace (Negative); RBC Urine 0-4 /hpf (0-2); Specific Gravity, Urine 1.015 (1.005-1.030); Squamous Epithelial Cell Urine 0-4 /hpf (0-5); Urine Appearance Clear (CLEAR); Urobilinogen Urine 4+ mg/dL (Negative); WBC Urine 0-4 /hpf (0-5); pH Urine 6 (5-7)
--- NOTE | 2022-04-27 22:43 | PM.HP ---
Providers/Chief Complaint Primary Care Provider: YENI Perez Chief Complaint: abdominal pain, asciites History of Present Illness Reinaldo Flores is a 46 year old male with past medical history of chronic alcohol use, came in with chief complaint of worsening abdominal swelling recently admitted here for management of gross symptomatic ascites secondary to decompensated liver cirrhosis secondary to alcohol abuse: Patient underwent ultrasound-guided paracentesis, with removal of 6 Ls fluid. He is on lasix and spirinolactone as outpatient. He presented to the ER with increased distension, painful swelling of the abdomen, shortness of breath. 6L fluid has been drained again today by paracentesis in the ER. Review of Systems General: Reports: 10 or more systems reviewed and unremarkable except in HPI and below Const: Denies: fever(s), chills or body aches Eyes: Denies: change in vision, blurry vision or photophobia ENMT: Reports: hoarseness; Denies: throat pain, enlarged tonsils, odynophagia or nasal congestion Card: Denies: chest pain, palpitations, irregular heart rhythm, edema, swelling of feet/ankles, lightheadedness, pre-syncope, dyspnea on exertion or orthopnea Resp: Denies: dyspnea, productive cough, non-productive cough, wheezing, stridor, pain on inspiration, change in phlegm color, hemoptysis or chest congestion GI: Denies: abdominal pain, nausea, vomiting, hematemesis, coffee ground emesis, dysphagia, heartburn, diarrhea, constipation, GI cramping, change in stool character, hematochezia or melena : Denies: flank pain, dysuria, urinary frequency, urinary urgency, urinary hesitancy or hematuria Musc: Denies: neck pain, back pain, extremity pain, joint swelling, joint warmth or deformity Neuro: Denies: headache(s), numbness in extremities, weakness in extremities, sensory changes, difficulty walking, frequent falls, dizziness, vertigo, behavioral changes, Slurred speech present or seizure-like activity Psych: Denies: anxiety, depression, suicidal ideation or homicidal ideation Endo: Denies: polyuria, polydipsia, tired all the time, cold intolerance or hot flashes Len/Lymph: Denies: easy bruising or easy bleeding Medications/Allergies Home Medications Medication Instructions Recorded Confirmed Last Taken Type paliperidone palmitate 234 mg/1.5 234 mg (1.5 mL) IM Q30D #1.5 mL 02/05/22 04/25/22 Unknown Rx mL intramuscular syringe (Invega Sustenna) citalopram 40 mg tablet (Celexa) 40 mg PO DAILY #30 tabs 02/20/22 04/25/22 03/10/22 Rx hydroxyzine HCl 25 mg tablet 25 mg PO BID PRN anxiety #60 tabs 02/20/22 04/25/22 Unknown Rx paliperidone 3 mg tablet,extended 3 mg PO QAM #30 tabs 02/20/22 04/25/22 03/10/22 Rx release 24 hr (Invega) acetaminophen 325 mg tablet 325 mg PO Q6H PRN fever or pain 04/16/22 04/25/22 Unknown Rx (Tylenol) #30 tabs folic acid 1 mg tablet 1 mg PO DAILY 30 days #30 tabs 04/16/22 04/25/22 Unknown Rx furosemide 40 mg tablet (Lasix) 40 mg PO DAILY 30 days #30 tabs 04/16/22 04/25/22 Unknown Rx magnesium L-lactate 84 mg 84 mg PO BID 30 days #60 tabs 04/16/22 04/25/22 Unknown Rx tablet,extended release (Magtab) potassium chloride 20 mEq 20 meq PO DAILY #30 tabs 04/16/22 04/25/22 Unknown Rx tablet,extended release(part/cryst) (Klor-Con M) spironolactone 25 mg tablet 25 mg PO BID 30 days #60 tabs 04/16/22 04/25/22 Unknown Rx thiamine HCl (vitamin B1) 100 mg 100 mg PO DAILY 30 days #30 tabs 04/16/22 04/25/22 Unknown Rx tablet Allergies Allergy/AdvReac Type Severity Reaction Status Date / Time clozapine [From Clozaril] AdvReac Severe Lowered Verified 04/25/22 10:33 his WBC he says divalproex sodium AdvReac Severe swelling Verified 04/25/22 10:33 [From Depakote] haloperidol [From Haldol] AdvReac Severe swelling Verified 04/25/22 10:33 nitroglycerin AdvReac Severe Stopped Verified 04/25/22 10:33 heart Bee stings Allergy Severe Swelling & Uncoded 04/25/22 10:33 breathing problems, Anaphylactic shock PFSH Acute PFSH: Medical History Acne rosacea Alcohol dependence, uncomplicated Bipolar disorder Cerebrovascular accident (CVA) Controlled diabetes mellitus with hyperglycemia Current smoker DM neuropathy, painful Essential (primary) hypertension History of alcohol abuse daily use of hard liquor History of coronary artery disease History of CVA (cerebrovascular accident) 2009 Right side weakness due to a bleed History of memory loss History of schizophrenia Mixed hyperlipidemia Nicotine dependence, cigarettes, uncomplicated Psoriasis Psychiatric care Seizure disorder Surgical History History of colonoscopy with polypectomy 2015 History of esophagogastroduodenoscopy (EGD) History of eye surgery History of heart artery stent Family History Other Dementia Diabetes Hypertension Lung disease Psychiatric illness Stroke Denies family history of Chronic kidney disease (CKD) Anesthesia complication Bleeding disorder Cancer Social History Smoking and tobacco status: current every day smoker cigarettes Packs smoked per day: 2.5 Years cigarettes smoked: 38 Second hand smoke exposure: Yes Smoking risk assessment/counseling performed?: Yes Alcohol intake: current Alcohol intake frequency: 0-2 Drinks per Day Alcohol type: hard liquor Desire information about alcohol rehabilitation?: No Counseling given: No Desire information about substance/drug rehabilitation?: No Counseling given: No Adopted: No Caregiver/support person: Yes Lives independently: No Household members: friend(s) and caregiver Housing: Manufactured/Mobile home Marital status: Number of children: 8 service: No Current occupational status: disabled Pets and animals: Yes History of recent travel: Yes Details: month an a half ago Out of state: Yes Current gender identity: Male Vitals/I&O/Wt Last Vital Signs Temp 99.4 F 04/27/22 17:59 Pulse 105 H 04/27/22 22:00 Resp 25 H 04/27/22 22:00 BP 110/66 04/27/22 22:00 Pulse Ox 96 04/27/22 22:00 O2 Del Method 04/27/22 22:00 O2 Flow Rate 3 04/27/22 22:00 Weight last 48 hrs Weight 99.79 kg Physical Exam Narrative: General: No acute distress, AO x3 HEENT: PERRLA, pupils bilaterally equal and reactive, pallors not present Chest: Normal vesicular breath sounds, no added sounds, equal good air entry bilaterally CVS: S1-S2 regular, no murmurs, no tachycardia, no gallops, no rubs Abdomen:tense, distended Neuro: No focal deficits, no facial deformity, AO x3, power 5/5 in all limbs Data 04/27/22 19:35 04/27/22 19:35 A&P Assessment and plan (1) Ascites: Presenting today with c/o abdominal distension, tense making it difficult for him to breathe. He is now s/p 6L paracentesis in he ER with some relief in his symptoms. Will monitor him post paracentesis await peritoneal fluid analysis Continue Lasix, however change to iv lasix 40mg continue spirinolactone He is set to establish care with hepaotologist as outpatient Attestations Medical Necessity Statement*: anticipate less than 2 midnight stay for above defined care Coding Level of Care Code Acute University Relations Director for Chg Fwd Diagnoses Ascites R18.8
[2022-04-27 23:29] LABS: Mononuclear %, Pleural Fluid 73 %; Polynuclear Cells, Pleural % 28 %
[2022-04-27 23:33] LABS: Appearance, Pleural Fluid CLEAR (CLEAR); Color, Pleural Fluid Yellow (Pale Yellow)
[2022-04-28] VITALS (10 sets, daily range): BP systolic 100–144; BP diastolic 48–94; PULSE 79–113; RESP 16–20; TEMP 36.4–37.3; O2SAT 92–96; BMI 32.4
--- NOTE | 2022-04-28 00:06 | PC.NURSE ---
paracentesis performed by Dr Cooper. 6300ml obtained. specimens obtained and sent to lab.
[2022-04-28 00:23] LABS: Cells Counted 100
[2022-04-28 00:31] LABS: Albumin Peritoneal Fluid 0.7 g/dL; Amylase Peritoneal Fluid 23 U/L (88-109); Total Protein Peritoneal Fluid 1.5 g/dL
[2022-04-28 00:32] LABS: Cyto Order Verification No Order
--- NOTE | 2022-04-28 01:11 | PC.NURSE ---
REPORT TAKEN FROM JESS IN ED. PATIENT ARRIVED FROM ED ON FLOOR AT 0052 BY WHEELCHAIR WITH BELONGINGS. PATIENT IS A&O TO NAME, , PLACE, BUT COULD NOT REMEMBER DATE. PATIENT REPORTS DIFFICULTY BREATHING BUT STATES THAT BREATHING HAS INCREASED SINCE PARACENTESIS IN ED. PATIENT STATES HE IS IN PAIN, CURRENTLY RESTING IN BED. NURSE EDUCATED PATIENT TO NOT SMOKE WITH OXYGEN THERAPY AND HOW TO USE CALL LIGHT. BED LOCKED IN LOWEST POSITION WITH BOTH SIDE RAILS UP, CALL LIGHT WITHIN REACH. PATIENT REPORTS NO FURTHER NEEDS AT THIS TIME.
[2022-04-28 02:04] LABS: PATH Referal YES
[2022-04-28] MEDS: albumin 12.5 gm/50 mL IV IV (02:27)
[2022-04-28] MEDS: FUROsemide 10 mg/mL SDV 4mL 40 MG IVP (03:21)
[2022-04-28] MEDS: cefTRIAXone 1,000 MG in sodium chloride 0.9% (plus) 50 ML 100 MG IV (03:21)
[2022-04-28] MEDS: morphine 4 mg/mL SDV 1 mL 2 MG IVP ×2 (04:19→21:15)
--- NOTE | 2022-04-28 04:29 | PC.NURSE ---
PATIENT REPORTED SEVERE PAIN. IV MORPHINE ADMINISTERED. PATIENT SITTING ON SIDE OF BED ON PHONE WITH DAUGHTER, CALL LIGHT WITHIN REACH. PATIENT REPORTED NO FURTHER NEEDS AT THIS TIME.
[2022-04-28 05:43] LABS: Alanine Aminotransferase 30 U/L (0-41); Albumin Level 2.9 g/dL (3.5-5.2); Alkaline Phosphatase 138 U/L (40-130); Anion Gap 12.1 (5-19); Aspartate Amino Transferase 102 U/L (0-40); Blood Urea Nitrogen 5 mg/dL (6-20); Carbon Dioxide 30 mmol/L (22-29); Chloride 88 mmol/L (98-107); Globulin 4.7 g/dL (1.3-4.6); Glomerular Filtration Rate 177.5 mL/min (90-130); Glucose 131 mg/dL (65-115); Magnesium 1.5 mg/dL (1.7-2.3); Osmolality Calculated 263 mOsm/kg (285-295); Potassium 3.1 mmol/L (3.5-5.1); Sodium 127 mmol/L (136-145); Total Bilirubin 2.2 mg/dL (0.15-1.2); Total Protein 7.6 g/dL (6.6-8.7)
[2022-04-28] MEDS: spironolactone 25 mg Tablet PO ×2 (09:14→17:28)
[2022-04-28] MEDS: folic acid 1 mg Tablet PO (09:14)
[2022-04-28] MEDS: pantoprazole DR 40 mg Tablet PO (09:14)
[2022-04-28] MEDS: citalopram 20 mg Tablet 40 MG PO (09:14)
[2022-04-28] MEDS: thiamine 100 mg Tablet PO (09:14)
[2022-04-28] MEDS: potassium chloride ER 20 mEq Tablet 40 MEQ PO (12:43)
--- NOTE | 2022-04-28 13:45 | PM.PN ---
Subjective Subjective: Admitted overnight. On examination lying comfortably in bed. H&P and labs appreciated. States he is feeling better from breathing point of view. Complaining of pain in his belly since paracentesis. Has remained hemodynamically stable and afebrile. On 2 to 3 L oxygen supplementation saturating more than 92% though oxygen was out of his nose. Vitals/I&O/Wt Last Vital Signs Temp 98.4 F 04/28/22 12:00 Pulse 79 04/28/22 12:00 Resp 16 04/28/22 12:00 BP 101/48 04/28/22 12:00 Pulse Ox 92 04/28/22 12:00 O2 Del Method 04/28/22 12:00 O2 Flow Rate 3.5 04/28/22 08:00 04/27/22 04/28/22 04/28/22 22:59 06:59 14:59 Intake Total 100 / 100 240 / 240 Output Total 1440 / 1440 Balance -1340 / -1340 240 / 240 Weight last 48 hrs Weight 50.258 kg Weight 96.842 kg Weight 99.79 kg Physical Exam Narrative: General: No acute distress, AO x3 HEENT: PERRLA, pupils bilaterally equal and reactive, pallors not present Chest: Normal vesicular breath sounds, no added sounds, equal good air entry bilaterally CVS: S1-S2 regular, no murmurs, no tachycardia, no gallops, no rubs Abdomen:tense, distended Neuro: No focal deficits, no facial deformity, AO x3, power 5/5 in all limbs Data 04/27/22 19:35 04/28/22 04:45 Micro: Microbiology 04/28/22 11:30 Blood Culture - Preliminary Blood SPECIMEN COLLECTED 04/28/22 11:32 Blood Culture - Preliminary Blood SPECIMEN COLLECTED A&P Assessment and plan (1) Ascites: Post 6 L paracentesis. Fluid studies negative for SBP. Continue with IV Lasix for today. Continue home dose of spironolactone. Patient is yet to follow-up with supervisor electronics processing as an outpatient. Plan Staff epidermidis bacteremia: 1 out of 4 bottles positive on previous admission. Most likely a contaminant. Will repeat blood cultures today. Continue with empiric ceftriaxone for now. Hypoxia: Currently on 2 to 3 L. Will try to wean. Chest x-ray negative for any signs of consolidation. Most likely secondary to ascites. Will do home O2 evaluation prior to discharge. Full code. Cardiac diet. Replete potassium. Fluid restriction. Protonix for PUD prophylaxis Attestations Medical Necessity Statement*: Requires further hospitalization for management of difficulty in breathing secondary to ascites in a patient with liver dysfunction Time Spent in Patient Care: 16 - 35 minutes Coding Level of Care Code Acute Photographic Process Worker for Chg Fwd Diagnoses Ascites R18.8
--- NOTE | 2022-04-28 19:14 | PC.NURSE ---
BEDSIDE REPORT TAKEN FROM KATIE ANDERSEN. PATIENT A&O, VSS. PATIENT STATES THAT HE IS HAVING AN EASIER TIME BREATHING TODAY BUT BELIEVES THAT FLUID IS BUILDING UP AGAIN. 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 PATIENT ALSO STATES THAT HE HAS BEEN GOING THROUGH WITHDRAWALS BUT WOULD NOT GIVE EXAMPLES OF ANY WITHDRAWAL BEHAVIOR HE HAS EXPERIENCED. PATIENT SAYS HE HAS BEEN TRYING TO SLEEP AND IT HAS HELPED HIM WITH WITHDRAWAL. PATIENT RESTING IN BED, BED LOCKED AND IN LOWEST POSITION, ONE SIDE RAIL DOWN UPON PATIENT REQUEST, AND CALL LIGHT WITHIN REACH. PATIENT STATED NO FURTHER NEEDS AT THIS TIME.
[2022-04-28] MEDS: acetaminophen 325 mg Tablet 650 MG PO (20:30)
[2022-04-29] VITALS (7 sets, daily range): BP systolic 98–109; BP diastolic 59–72; PULSE 71–105; RESP 16–20; TEMP 36.5–37.1; O2SAT 91–97
[2022-04-29] MEDS: cefTRIAXone 1,000 MG in sodium chloride 0.9% (plus) 50 ML 100 MG IV (04:10)
[2022-04-29] MEDS: FUROsemide 10 mg/mL SDV 4mL 40 MG IVP (04:58)
[2022-04-29] MEDS: potassium chloride ER 20 mEq Tablet 40 MEQ PO (04:58)
[2022-04-29 06:43] LABS: Alanine Aminotransferase 21 U/L (0-41); Albumin Level 2.2 g/dL (3.5-5.2); Alkaline Phosphatase 97 U/L (40-130); Anion Gap 10.6 (5-19); Aspartate Amino Transferase 72 U/L (0-40); Blood Urea Nitrogen 7 mg/dL (6-20); Calcium 8.5 mg/dL (8.5-10.5); Carbon Dioxide 28 mmol/L (22-29); Chloride 96 mmol/L (98-107); Globulin 3.9 g/dL (1.3-4.6); Glucose 94 mg/dL (65-115); Osmolality Calculated 270 mOsm/kg (285-295); Potassium 3.6 mmol/L (3.5-5.1); Sodium 131 mmol/L (136-145); Total Bilirubin 2.2 mg/dL (0.15-1.2); Total Protein 6.1 g/dL (6.6-8.7)
[2022-04-29] MEDS: folic acid 1 mg Tablet PO (09:25)
[2022-04-29] MEDS: citalopram 20 mg Tablet 40 MG PO (09:25)
[2022-04-29] MEDS: thiamine 100 mg Tablet PO (09:25)
[2022-04-29] MEDS: pantoprazole DR 40 mg Tablet PO (09:26)
[2022-04-29] MEDS: spironolactone 25 mg Tablet PO (09:26)
--- NOTE | 2022-04-29 11:43 | PM.DCS ---
Discharge Providers Date of Admission: 04/27/22 22:38 Date of Discharge: April 29, 2022 Attending Provider at Admission: Thi Snyder MD Attending Provider at Discharge: Esau Damico MD Primary Care Provider: YENI Perez Diagnoses at Discharge Discharge Diagnosis (1) Ascites: Status: Acute Reason for Visit Reason for Visit: abdominal pain, asciites Hospital Course Hospital Course Reinaldo Flores is a 46 year old male with past medical history of chronic alcohol use, came in with chief complaint of worsening abdominal swelling recently admitted here for management of gross symptomatic ascites secondary to decompensated liver cirrhosis secondary to alcohol abuse: Patient underwent ultrasound-guided paracentesis, with removal of 6 Ls fluid. He is on lasix and spirinolactone as outpatient. He presented to the ER with increased distension, painful swelling of the abdomen, shortness of breath. 6L fluid has been drained again today by paracentesis in the ER. Patient was admitted to hospital further evaluation and management. Fluid studies remain negative for any SBP. His hospitalization was otherwise unremarkable. He has been discharged in hemodynamically stable condition on increase Lasix to 40 mg twice daily. He is to continue all his other medications as before. He is to follow-up with geophysical support specialist at earliest. He is to restrict intake of fluid to less than 15 cc and resolved to less than 2 g a day. Physical Exam Narrative: General: No acute distress, AO x3 HEENT: PERRLA, pupils bilaterally equal and reactive, pallors not present Chest: Normal vesicular breath sounds, no added sounds, equal good air entry bilaterally CVS: S1-S2 regular, no murmurs, no tachycardia, no gallops, no rubs Abdomen:tense, distended Neuro: No focal deficits, no facial deformity, AO x3, power 5/5 in all limbs Discharge Data Studies Completed and Pending Completed Studies During Hospitalization Category Date Time Status XR chest 1V portable [id number] Stat Exams 04/27/22 18:57 Completed Pending at discharge Category Date Time Status Blood Culture Stat Lab 04/28/22 11:30 Results Body Fluid Culture & GS Routine Lab 04/27/22 22:36 Results Radiology Impressions Chest X-Ray 04/27/22 18:57 IMPRESSION: No acute findings. Laboratory Results WBC 10.1 10^3/uL (4.0-10.0) H 04/27/22 19:35 RBC 4.24 10^6/uL (4.1-5.3) 04/27/22 19:35 Hgb 15.2 g/dL (11.7-16.6) 04/27/22 19:35 Hct 44.4 % (42.0-52.0) 04/27/22 19:35 MCV 104.7 fl (80-94) H 04/27/22 19:35 MCH 35.8 pg (28.0-34.0) H 04/27/22 19:35 MCHC 34.2 g/dL (30.0-36.0) 04/27/22 19:35 RDW 12.8 % (12.1-15.1) 04/27/22 19:35 Plt Count 158 10^3/cmm (130-400) 04/27/22 19:35 MPV 11.6 fL (7.4-10.4) H 04/27/22 19:35 Neut % (Auto) 73.6 % 04/27/22 19:35 Lymph % (Auto) 14.0 % 04/27/22 19:35 [place] % (Auto) 9.0 % 04/27/22 19:35 Eos % (Auto) 2.1 % 04/27/22 19:35 Baso % (Auto) 0.8 % 04/27/22 19:35 Neut # (Auto) 7.40 10^3/uL (1.8-7.7) 04/27/22 19:35 Lymph # (Auto) 1.4 10^3/uL (0.8-4.8) 04/27/22 19:35 [place] # (Auto) 0.9 10^3/uL (0.2-0.9) 04/27/22 19:35 Eos # (Auto) 0.2 10^3/uL (0.0-0.8) 04/27/22 19:35 Baso # (Auto) 0.1 10^3/uL (0.0-0.1) 04/27/22 19:35 Nucleated RBC % (auto) 0 % 04/27/22 19:35 Total Counted 100 04/27/22 22:32 Nucleated RBCs # 0.0 /100WBC 04/27/22 19:35 PT 16.10 SECONDS (12.1-14.9) H 04/27/22 19:35 INR 1.26 (0.8-1.2) H 04/27/22 19:35 Sodium 131 mmol/L (136-145) L 04/29/22 05:08 Potassium 3.6 mmol/L (3.5-5.1) 04/29/22 05:08 Chloride 96 mmol/L (98-107) L 04/29/22 05:08 Carbon Dioxide 28 mmol/L (22-29) 04/29/22 05:08 Anion Gap 10.6 (5-19) 04/29/22 05:08 BUN 7 mg/dL (6-20) 04/29/22 05:08 Creatinine 0.3 mg/dL (0.7-1.2) L 04/29/22 05:08 GFR Calculation 320.0 mL/min (90-130) H 04/29/22 05:08 Glucose 94 mg/dL (65-115) 04/29/22 05:08 Calculated Osmolality 270 mOsm/kg (285-295) L 04/29/22 05:08 Lactate 1.9 mmol/L (0.5-2.2) 04/27/22 19:35 Calcium 8.5 mg/dL (8.5-10.5) 04/29/22 05:08 Magnesium 1.5 mg/dL (1.7-2.3) L 04/28/22 04:45 Total Bilirubin 2.2 mg/dL (0.15-1.2) H 04/29/22 05:08 AST 72 U/L (0-40) H 04/29/22 05:08 ALT 21 U/L (0-41) 04/29/22 05:08 Alkaline Phosphatase 97 U/L (40-130) 04/29/22 05:08 Ammonia 27 umol/L (16-60) 04/27/22 19:35 C-Reactive Protein 45.0 mg/L (0.0-4.9) H 04/27/22 19:35 Total Protein 6.1 g/dL (6.6-8.7) L 04/29/22 05:08 Albumin 2.2 g/dL (3.5-5.2) L 04/29/22 05:08 Globulin 3.9 g/dL (1.3-4.6) 04/29/22 05:08 Lipase 133 U/L (13-60) H 04/27/22 19:35 Urine Color Dark yellow (Yellow) 04/27/22 19:47 Urine Appearance Clear (CLEAR) 04/27/22 19:47 Urine pH 6 (5-7) 04/27/22 19:47 Ur Specific [place] 1.015 (1.005-1.030) 04/27/22 19:47 Urine Protein Trace (Negative) 04/27/22 19:47 Urine Glucose (UA) Norm (Normal) 04/27/22 19:47 Urine Ketones 1+ (Negative) H 04/27/22 19:47 Urine Blood Neg (Negative) 04/27/22 19:47 Urine Nitrate Negative (Negative) 04/27/22 19:47 Urine Bilirubin 1+ (Negative) H 04/27/22 19:47 Urine Urobilinogen 4+ mg/dL (Negative) H 04/27/22 19:47 Ur Leukocyte Esterase Negative (Negative) 04/27/22 19:47 Urine RBC 0-4 /hpf (0-2) H 04/27/22 19:47 Urine WBC 0-4 /hpf (0-5) H 04/27/22 19:47 Ur Squamous Epith Cells 0-4 /hpf (0-5) H 04/27/22 19:47 Amorphous Sediment Not Reportable 04/27/22 19:47 Urine Bacteria None /hpf (NONE) 04/27/22 19:47 Urine Mucus 3+ /hpf 04/27/22 19:47 Peritoneal Color Cancelled 04/27/22 22:32 Peritoneal Appearance Cancelled 04/27/22 22:32 Peritoneal pH 7.0 04/27/22 22:32 Peritoneal WBC Cancelled 04/27/22 22:32 Peritoneal RBC Cancelled 04/27/22 22:32 Periton Mononu # Auto Cancelled 04/27/22 22:32 Mononuclear WBCs % Cancelled 04/27/22 22:32 Polynuclear WBCs % Cancelled 04/27/22 22:32 Perit Polynuc WBCs # Cancelled 04/27/22 22:32 Peritoneal Diff Commnt Cancelled 04/27/22 22:32 Peritoneal Tot Protein 1.5 g/dL 04/27/22 22:32 Peritoneal Albumin 0.7 g/dL 04/27/22 22:32 Peritoneal LDH 63.0 U/L 04/27/22 22:32 Peritoneal Glucose 120.0 mg/dL 04/27/22 22:32 Peritoneal Amylase 23 U/L (88-109) L 04/27/22 22:32 Pleural Color Yellow (Pale Yellow) H 04/27/22 22:32 Pleural Appearance Clear (CLEAR) 04/27/22 22:32 Pleural WBC 200.000 /uL (0-1000) 04/27/22 22:32 Pleural RBC 1.000 10^3/uL 04/27/22 22:32 Pleural Other Cells Not Reportable 04/27/22 22:32 Pleural Polynuclear % 28 % 04/27/22 22:32 Pleural Mononuclear % 73 % 04/27/22 22:32 Path Cons w/Slide Yes 04/27/22 22:32 Vitals Last Vital Signs Temp 98.0 F 04/29/22 07:50 Pulse 88 04/29/22 08:00 Resp 16 04/29/22 07:50 BP 103/62 04/29/22 07:50 Pulse Ox 94 04/29/22 10:41 O2 Del Method 04/29/22 08:00 O2 Flow Rate 2 04/29/22 08:00 Discharge Plan Discharge Patient Disposition: Home Condition: Stable Prescriptions: New pantoprazole 40 mg Tablet,Delayed Release (Dr/Ec) 40 mg PO DAILY Qty: 30 0RF Continued paliperidone [Invega] 3 mg tablet extended release 24hr 3 mg PO QAM Qty: 30 1RF hydroxyzine HCl 25 mg tablet 25 mg PO BID PRN (Reason: anxiety) Qty: 60 0RF citalopram [Celexa] 40 mg tablet 40 mg PO DAILY Qty: 30 1RF Invega Sustenna 234 mg/1.5 mL syringe 234 mg IM Q30D Qty: 1.5 0RF spironolactone 25 mg Tablet 25 mg PO BID 30 Days Qty: 60 0RF folic acid 1 mg Tablet 1 mg PO DAILY 30 Days Qty: 30 1RF magnesium L-lactate [Magtab] 84 mg Tablet Extended Release 84 mg PO BID 30 Days Qty: 60 0RF thiamine HCl (vitamin B1) 100 mg tablet 100 mg PO DAILY 30 Days Qty: 30 0RF acetaminophen [Tylenol] 325 mg tablet 325 mg PO Q6H PRN (Reason: fever or pain) Qty: 30 0RF potassium chloride 10 mEq tablet extended release 10 meq PO DAILY Changed furosemide [Lasix] 40 mg tablet 40 mg PO BID 30 Days Qty: 30 0RF Discharge Orders: Discharge Order (Routine); Ordered 04/29/22 Ordered By: Esau Damico Discharge Diet: Regular and Cardiac Discharge Activity: Resume usual activity and Increase activity as tolerated Patient Instructions: Opioid Safety Activity Restrictions/Additional Instructions: Dose of lasix has been increased to twice a day. Please restrict the fluid intake to less than 1500 cc. Please restrict salt intake to less than 2 g a day. Please make sure you follow-up with a geophysical support specialist at the earliest. Discharge Attestations Time Spent in Discharge Care*: greater than 30 min Status at Discharge: Cognitive status at discharge: cognitively intact, Behavioral status at discharge: cooperative, Functional status at discharge: independent ambulation, Overall status at discharge: patient is back to baseline Quality Metrics Clinical Quality Measures [ No reported AMI, CVA or VTE this stay] Coding Level of Care Code Acute Chg ALIX PALACIOS note Diagnoses Ascites R18.8
--- NOTE | 2022-04-29 15:56 | PC.NURSE ---
IV removed intact. Patient tolerated well. Patient is A&Ox3. Respirations even and non-labored on room air. Reviewed patient discharge with patient at this time. Patient verbalized understanding of discharge instructions and changes to medications including taking Lasix twice a day. Patient wheel chaired to private car.
== END 2022-04-29 16:00 | disposition home or self-care (01) ==
LOC: ER 22:04 → MEDSURG 04-28 00:23
PROVIDERS: Admitting Provider Student in an Organized Health Care Education/Training Program; Emergency Provider Emergency Medicine; PCP Nurse Practitioner Family; Visit Provider Student in an Organized Health Care Education/Training Program
DX: R18.8 Other ascites (principal); F10.11 Alcohol abuse, in remission; K74.60 Unspecified cirrhosis of liver; E11.40 Type 2 diabetes mellitus with diabetic neuropathy, unspecified; I10 Essential (primary) hypertension; I25.10 Atherosclerotic heart disease of native coronary artery without angina pectoris; I69.951 Hemiplegia and hemiparesis following unspecified cerebrovascular disease affecting right dominant side; E78.2 Mixed hyperlipidemia; F17.210 Nicotine dependence, cigarettes, uncomplicated
CPT/HCPCS: 36415; 49082; 71045; 80053; 80503; 81001; 82042; 82140; 82150; 82945; 83605; 83615; 83690; 83735; 83986; 84157; 85025; 85610; 86140; 87040; 87070; 87075; 87205; 89050; 94760; 96365; 96367; 96375; 96376; 99285; G0378; J0696; J1940; J2270; J2405; J3475; P9047

== ENCOUNTER 2022-05-14 13:10 | Emergency (ER) | payer MEDICARE, MEDICAID, SELFPAY ==
[2022-05-14] VITALS (9 sets, daily range): BP systolic 102–121; BP diastolic 63–87; PULSE 73–108; RESP 16–24; TEMP 36.3; O2SAT 90–96; BMI 31.9
--- NOTE | 2022-05-14 13:49 | ECG_ITS ---
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 Measurements Intervals [place] Rate: 108 P: 34 [place]: 157 QRS: -21 QRSD: 85 T: 14 QT: 335 QTc: 450 Interpretive Statements SINUS TACHYCARDIA POSSIBLE ANTERIOR MYOCARDIAL INFARCTION , PROBABLY OLD [30 ms Q WAVE IN V3/V4, OR R < 0.2 mV IN V4] INFERIOR MYOCARDIAL INFARCTION , PROBABLY OLD [40+ ms Q WAVE AND/OR ST/T ABNORMALITY IN II/aVF] Compared to ECG 04/14/2022 16:37:57 No significant changes Electronically Signed On 05-14-2022 19:03:46 SEISMOLOGY TECHNICAL OFFICER by Skip Abdul M.D. [id number]
--- NOTE | 2022-05-14 13:55 | ED_ITS ---
HPI - Abdominal Pain General: Chief Complaint: Abdominal Pain Stated Complaint: ABDOMINAL PAIN/ CP/ SOB Source: patient Mode of arrival: ambulatory History of Present Illness: 46-year-old male presents to the emergency room with complaints of abdominal pain and swelling shortness of breath. Patient has a history of decompensated alcoholic liver cirrhosis he is had paracentesis in the past he continues to drink. Complaining of shortness of breath difficulty breathing he is lying on a right lateral recumbent position MD elicited complaint: abdominal pain Pertinent past history: other (Alcoholic liver cirrhosis.) Onset (ago): day(s) Pain Consistency: constant Location: Diffuse Severity: moderate Quality: aching Radiation: none Exacerbating factors: nothing Associated Symptoms: Reports bloating and GI cramping; Denies anorexia, belching, change in bowel habits, change in stool character, chills, coffee ground emesis, constipation, diarrhea, dyspepsia, dysuria, excessive flatus, fever(s), heartburn, hematochezia, hematuria, hematemesis, fec al incontinence, loose stools, melena, nausea, poor appetite, syncope and vomiting Review of Systems Const: Reports: fatigue and malaise; Denies: fever(s) or chills ENMT: Denies: throat pain, ear or mastoid pain, nasal discharge or nasal congestion Card: Denies: chest pain, palpitations, irregular heart rhythm, edema or syncope Resp: Reports: dyspnea; Denies: productive cough or non-productive cough GI: Reports: bloating and GI cramping; Denies: nausea, vomiting, hematemesis, coffee ground emesis, heartburn, diarrhea, constipation, belching, excessive flatus, fecal incontinence, change in bowel habits, change in stool character, hematochezia or melena : Denies: dysuria, urinary frequency, urinary urgency or hematuria Skin/Breast: Denies: rash or pruritus PFSH ED PFSH: Medical History Acne rosacea ALC (alcoholic liver cirrhosis) Alcohol dependence, uncomplicated Bipolar disorder Cerebrovascular accident (CVA) Controlled diabetes mellitus with hyperglycemia Current smoker DM neuropathy, painful Essential (primary) hypertension History of alcohol abuse daily use of hard liquor History of coronary artery disease History of CVA (cerebrovascular accident) 2009 Right side weakness due to a bleed History of memory loss History of schizophrenia Mixed hyperlipidemia Nicotine dependence, cigarettes, uncomplicated Psoriasis Psychiatric care Seizure disorder Surgical History History of colonoscopy with polypectomy 2016 History of esophagogastroduodenoscopy (EGD) History of eye surgery History of heart artery stent Family History Other Dementia Diabetes Hypertension Lung disease Psychiatric illness Stroke Denies family history of Chronic kidney disease (CKD) Anesthesia complication Bleeding disorder Cancer Social History Smoking and tobacco status: current every day smoker cigarettes Packs smoked per day: 2.5 Years cigarettes smoked: 38 Second hand smoke exposure: Yes Smoking risk assessment/counseling performed?: Yes Alcohol intake: current Alcohol intake frequency: 0-2 Drinks per Day Alcohol type: hard liquor Desire information about alcohol rehabilitation?: No Counseling given: No Desire information about substance/drug rehabilitation?: No Counseling given: No Adopted: No Caregiver/support person: Yes Lives independently: No Household members: friend(s) and caregiver Housing: Manufactured/Mobile home Marital status: Number of children: 8 service: No Current occupational status: disabled Pets and animals: Yes History of recent travel: Yes Details: month an a half ago Out of state: Yes Current gender identity: Male Physical Exam Const: COMMON NORMALS: no acute distress GENERAL APPEARANCE: cooperative and comfortable ORIENTATION/CONSCIOUSNESS: Yes awake, Yes oriented to person, Yes oriented to place and Yes oriented to time HENMT: COMMON NORMALS: normocephalic, atraumatic and hearing grossly normal bilaterally HEAD & SCALP: normocephalic and atraumatic Resp: COMMON NORMALS: normal respiratory effort, No retractions, No use of accessory muscles and clear to auscultation bilaterally AUSCULTATION: clear to auscultation bilaterally Cardio: COMMON NORMALS: regular rate, regular rhythm and No murmurs present (Cardio) RATE: regular rate RHYTHM: regular rhythm GI: COMMON NORMALS: No hepatosplenomegaly present INSPECTION: Yes abdominal distension AUSCULTATION: Yes normoactive bowel sounds PALPATION: Yes Tenderness to palpation present (GI), No Guarding due to palpation present (GI), Yes No hepatosplenomegaly present and Yes Ascites present Extremity: COMMON NORMALS: normal to inspection, capillary refill normal, no clubbing, cyanosis or edema, no calf tenderness and no pedal edema Neuro: SENSORIUM/ORIENTATION: Yes oriented to person, Yes oriented to place and Yes oriented to time Skin: COMMON NORMALS: no rashes or lesions noted GENERAL SKIN EXAM: no rashes or lesions noted Course Vital Signs: Vital signs: Vital Signs Temperature 97.4 F L 05/14/22 13:15 Pulse Rate 95 05/14/22 17:24 Respiratory Rate 18 05/14/22 16:24 Blood Pressure 104/86 05/14/22 17:24 Pulse Oximetry 95 05/14/22 17:24 Oxygen Delivery Me thod 05/14/22 13:24 Oxygen Flow Rate 2 05/14/22 13:24 MDM - Abdominal Pain Medical Decision Making Paracentesis done patient had good relief of symptoms will discharge home follow-up with his primary care would benefit from scheduled outpatient paracentesis in the future Medical Records I reviewed the patient's medical records. Lab Data I reviewed the patient's lab results. 05/14/22 13:24 05/14/22 13:24 Labs/Radiology: Laboratory Results WBC 7.6 10^3/uL (4.0-10.0) 05/14/22 13:24 RBC 4.53 10^6/uL (4.1-5.3) 05/14/22 13:24 Hgb 15.9 g/dL (11.7-16.6) 05/14/22 13:24 Hct 47.6 % (42.0-52.0) 05/14/22 13:24 MCV 105.1 fl (80-94) H 05/14/22 13:24 MCH 35.1 pg (28.0-34.0) H 05/14/22 13:24 MCHC 33.4 g/dL (30.0-36.0) 05/14/22 13:24 RDW 11.9 % (12.1-15.1) L 05/14/22 13:24 Plt Count 205 10^3/cmm (130-400) 05/14/22 13:24 MPV 11.1 fL (7.4-10.4) H 05/14/22 13:24 Neut % (Auto) 68.2 % 05/14/22 13:24 Lymph % (Auto) 15.9 % 05/14/22 13:24 [place] % (Auto) 10.2 % 05/14/22 13:24 Eos % (Auto) 4.1 % 05/14/22 13:24 Baso % (Auto) 1.2 % 05/14/22 13:24 Neut # (Auto) 5.20 10^3/uL (1.8-7.7) 05/14/22 13:24 Lymph # (Auto) 1.2 10^3/uL (0.8-4.8) 05/14/22 13:24 [place] # (Auto) 0.8 10^3/uL (0.2-0.9) 05/14/22 13:24 Eos # (Auto) 0.3 10^3/uL (0.0-0.8) 05/14/22 13:24 Baso # (Auto) 0.1 10^3/uL (0.0-0.1) 05/14/22 13:24 Nucleated RBC % (auto) 0 % 05/14/22 13:24 Nucleated RBCs # 0.0 /100WBC 05/14/22 13:24 PT 17.10 SECONDS (12.1-14.9) H 05/14/22 13:24 INR 1.36 (0.8-1.2) H 05/14/22 13:24 APTT 37.5 SECONDS (23.9-36.7) H 05/14/22 13:24 Sodium 130 mmol/L (136-145) L 05/14/22 13:24 Potassium 3.3 mmol/L (3.5-5.1) L 05/14/22 13:24 Chloride 97 mmol/L (98-107) L 05/14/22 13:24 Carbon Dioxide 24 mmol/L (22-29) 05/14/22 13:24 Anion Gap 12.3 (5-19) 05/14/22 13:24 BUN 3 mg/dL (6-20) L 05/14/22 13:24 Creatinine 0.4 mg/dL (0.7-1.2) L 05/14/22 13:24 GFR Calculation 229.6 mL/min (90-130) H 05/14/22 13:24 Glucose 146 mg/dL (65-115) H 05/14/22 13:24 Calculated Osmolality 269 mOsm/kg (285-295) L 05/14/22 13:24 Calcium 8.2 mg/dL (8.5-10.5) L 05/14/22 13:24 Total Bilirubin 1.1 mg/dL (0.15-1.2) 05/14/22 13:24 AST 52 U/L (0-40) H 05/14/22 13:24 ALT 15 U/L (0-41) 05/14/22 13:24 Alkaline Phosphatase 89 U/L (40-130) 05/14/22 13:24 Total Protein 7.0 g/dL (6.6-8.7) 05/14/22 13:24 Albumin 2.4 g/dL (3.5-5.2) L 05/14/22 13:24 Globulin 4.6 g/dL (1.3-4.6) 05/14/22 13:24 Discharge Plan Discharge Patient Disposition: Home Clinical Impression: Ascites, ALC (alcoholic liver cirrhosis) Condition: Stable Prescriptions: No Action paliperidone [Invega] 3 mg tablet extended release 24hr 3 mg PO QAM Qty: 30 1RF citalopram [Celexa] 40 mg tablet 40 mg PO DAILY Qty: 30 1RF Invega Sustenna 234 mg/1.5 mL syringe 234 mg IM Q30D Qty: 1.5 0RF spironolactone 25 mg Tablet 25 mg PO BID 30 Days Qty: 60 0RF folic acid 1 mg Tablet 1 mg PO DAILY 30 Days Qty: 30 1RF magnesium L-lactate [Magtab] 84 mg Tablet Extended Release 84 mg PO BID 30 Days Qty: 60 0RF thiamine HCl (vitamin B1) 100 mg tablet 100 mg PO DAILY 30 Days Qty: 30 0RF potassium chloride 10 mEq tablet extended release 10 meq PO DAILY pantoprazole 40 mg Tablet,Delayed Release (Dr/Ec) 40 mg PO DAILY Qty: 30 0RF furosemide [Lasix] 40 mg tablet 40 mg PO BID 30 Days Qty: 30 0RF Discharge Orders: Discharge ED (Routine); Ordered 05/14/22 Ordered By: Leobardo Louis Referrals: Jewell Hugo, NAIMA-C [Primary Care Provider] - Discharge Diet: Usual diet Discharge Activity: Resume usual activity Patient Instructions: Opioid Safety, Pain Management Activity Restrictions/Additional Instructions: You are seen today for abdominal ascites secondary to alcoholic liver cirrhosis. You will likely need further paracentesis in the future recommend you schedule them with your primary care doctor. Also recommend that you abstain from alcohol. Coding Level of Care Code ED Energy Infrastructure Engineer for Carlso Armstrong
--- NOTE | 2022-05-14 13:56 | US_ITS ---
WS: [id number] ULTRASOUND-GUIDED PARACENTESIS CLINICAL INFORMATION: ascites COMPARISON: None. Procedure Informed consent: The risks, benefits, and alternatives of the procedure were discussed with the juan antonio ent. Verbal and written consent was obtained. Timeout: A timeout was performed to confirm the correct patient, procedure, and site. Preparation: A suitable skin site was identified. The patient was prepped and draped in usual sterile fashion. Lidocaine 1% was used for local anesthesia. Catheter: 4 Mong[place] One-step Yueh catheter. Side: Right Lower quadrant. Fluid Volume: 7300 ml Color: clear yellow DISPOSITION: Discarded safely. Complications: None. Patient disposition: Discharged from the department in stable condition. US/US paracentesis abd w [id number] IMPRESSION: Uncomplicated ultrasound-guided paracentesis. Removal of 7300ml
[2022-05-14 14:06] LABS: Basophils # 0.1 10^3/uL (0.0-0.1); Basophils % 1.2 %; Eosinophils # 0.3 10^3/uL (0.0-0.8); Eosinophils % 4.1 %; Hematocrit 47.6 % (42.0-52.0); Hemoglobin 15.9 g/dL (11.7-16.6); Lymphocytes # 1.2 10^3/uL (0.8-4.8); Lymphocytes % 15.9 %; Mean Corpuscular HGB Conc 33.4 g/dL (30.0-36.0); Mean Corpuscular Hemoglobin 35.1 pg (28.0-34.0); Mean Corpuscular Volume 105.1 fl (80-94); Mean Platelet Volume 11.1 fL (7.4-10.4); Monocytes # 0.8 10^3/uL (0.2-0.9); Monocytes % 10.2 %; Neutrophils % 68.2 %; Nucleated Red Blood Cells % 0 %; Platelet Count 205 10^3/cmm (130-400); Red Blood Count 4.53 10^6/uL (4.1-5.3); Red Cell Distribution Width 11.9 % (12.1-15.1); White Blood Count 7.6 10^3/uL (4.0-10.0)
--- NOTE | 2022-05-14 14:09 | PC.NURSE ---
PT PLACED ON CONTINUOUS NIBP, SPO2, AND CM
[2022-05-14 14:15] LABS: INR 1.36 (0.8-1.2); Partial Thromboplastin Time 37.5 SECONDS (23.9-36.7)
[2022-05-14 14:19] LABS: Alanine Aminotransferase 15 U/L (0-41); Albumin Level 2.4 g/dL (3.5-5.2); Alkaline Phosphatase 89 U/L (40-130); Blood Urea Nitrogen 3 mg/dL (6-20); Calcium 8.2 mg/dL (8.5-10.5); Carbon Dioxide 24 mmol/L (22-29); Chloride 97 mmol/L (98-107); Globulin 4.6 g/dL (1.3-4.6); Glomerular Filtration Rate 229.6 mL/min (90-130); Glucose 146 mg/dL (65-115); Osmolality Calculated 269 mOsm/kg (285-295); Sodium 130 mmol/L (136-145); Total Bilirubin 1.1 mg/dL (0.15-1.2)
[2022-05-14 14:22] LABS: Anion Gap 12.3 (5-19); Aspartate Amino Transferase 52 U/L (0-40); Potassium 3.3 mmol/L (3.5-5.1)
[2022-05-14] MEDS: morphine 4 mg/mL SDV 1 mL 2 MG IVP (15:33)
[2022-05-14] MEDS: promethazine 25 mg/mL SDV 1 mL IM (15:33)
--- NOTE | 2022-05-14 18:05 | PC.NURSE ---
RN remained with pt throughout procedure. total 7,300mL fluid drained. site covered with gauze and secured with tegaderm. Dr Layne notified.
--- NOTE | 2022-05-14 18:17 | PC.NURSE ---
7300ML REMOVED FROM PT PARACENTESIS. KIERRA RN WITH PT THROUGHOUT PARACENTESIS. KIERRA RN REMOVED TUBING AND BANDAGED AREA
== END 2022-05-14 18:15 | disposition home or self-care (01) ==
PROVIDERS: Emergency Provider Family Medicine; PCP Nurse Practitioner Family
DX: K70.31 Alcoholic cirrhosis of liver with ascites (principal); F17.210 Nicotine dependence, cigarettes, uncomplicated; Z86.73 Personal history of transient ischemic attack (TIA), and cerebral infarction without residual deficits; E11.9 Type 2 diabetes mellitus without complications; I10 Essential (primary) hypertension; I25.10 Atherosclerotic heart disease of native coronary artery without angina pectoris; E78.2 Mixed hyperlipidemia
CPT/HCPCS: 49083; 80053; 85025; 85610; 85730; 93005; 96372; 96374; 99285; J2270; J2550

== ENCOUNTER 2022-05-15 19:02 | Inpatient (IN) | payer MEDICARE, MEDICAID, SELFPAY ==
[2022-05-15 19:05] VITALS: BP 105/69; PULSE 115; RESP 18; TEMP 37.2; O2SAT 92; BMI 28.8
--- NOTE | 2022-05-15 19:12 | ECG_ITS ---
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 Measurements Intervals [place] Rate: 112 P: 29 NE: 146 QRS: -30 QRSD: 86 T: 9 QT: 344 QTc: 471 Interpretive Statements SINUS TACHYCARDIA INFERIOR MYOCARDIAL INFARCTION , PROBABLY OLD [40+ ms Q WAVE AND/OR ST/T ABNORMALITY IN II/aVF] ANTEROSEPTAL MYOCARDIAL INFARCTION , OF INDETERMINATE AGE [40+ ms Q WAVE IN V1-V4] Compared to ECG 05/14/2022 13:49:41 No significant changes Electronically Signed On 05-16-2022 7:45:53 ONCOLOGY RADIATION PHYSICIAN by Deepali Nj M.D. [id number]
--- NOTE | 2022-05-15 19:15 | ED.C_ITS ---
HPI - Psych General: Chief Complaint: Psychiatric Symptoms Stated Complaint: SI Time Seen by Provider: 05/15/22 19:10 Source: EMS Mode of arrival: EMS Limitations: no limitations History of Present Illness: 46-year-old male who states he has been hearing voices since yesterday he has a history of cirrhosis is an alcoholic he states that he has heard voices throughout the night's been telling to kill himself he states he does have a plan to shoot himself he denies any worsening improving factors. He is talking a third person currently Associated symptoms: Reports auditory hallucinations, depression and suicidal ideation Review of Systems Const: Denies: fever(s), chills, body aches or change in appetite Eyes: Denies: blurry vision or eye discomfort ENMT: Denies: throat pain or dental pain Card: Denies: chest pain Resp: Denies: dyspnea GI: Denies: abdominal pain, nausea, vomiting or diarrhea : Denies: dysuria Musc: Denies: neck pain or back pain Skin/Breast: Denies: rash Neuro: Denies: headache(s) Psych: Reports: depression, auditory hallucinations and suicidal ideation Len/Lymph: Denies: easy bruising All/Imm: Denies: urticaria PFSH ED PFSH: Medical History Acne rosacea ALC (alcoholic liver cirrhosis) Alcohol dependence, uncomplicated Bipolar disorder Cerebrovascular accident (CVA) Controlled diabetes mellitus with hyperglycemia Current smoker DM neuropathy, painful Essential (primary) hypertension History of alcohol abuse daily use of hard liquor History of coronary artery disease History of CVA (cerebrovascular accident) 2010 Right side weakness due to a bleed History of memory loss History of schizophrenia Mixed hyperlipidemia Nicotine dependence, cigarettes, uncomplicated Psoriasis Psychiatric care Seizure disorder Surgical History History of colonoscopy with polypectomy 2016 History of esophagogastroduodenoscopy (EGD) History of eye surgery History of heart artery stent Family History Other Dementia Diabetes Hypertension Lung disease Psychiatric illness Stroke Denies family history of Chronic kidney disease (CKD) Anesthesia complication Bleeding disorder Cancer Social History Smoking and tobacco status: current every day smoker cigarettes Packs smoked per day: 2.5 Years cigarettes smoked: 38 Second hand smoke exposure: Yes Smoking risk assessment/counseling performed?: Yes Alcohol intake: current Alcohol intake frequency: 0-2 Drinks per Day Alcohol type: hard liquor Desire information about alcohol rehabilitation?: No Counseling given: No Desire information about substance/drug rehabilitation?: No Counseling given: No Adopted: No Caregiver/support person: Yes Lives independently: No Household members: friend(s) and caregiver Housing: Manufactured/Mobile home Marital status: Number of children: 8 service: No Current occupational status: disabled Pets and animals: Yes History of recent travel: Yes Details: month an a half ago Out of state: Yes Current gender identity: Male Physical Exam Const: COMMON NORMALS: patient oriented x3 HENMT: COMMON NORMALS: normocephalic and atraumatic HEAD & SCALP: normocephalic and atraumatic Eye: COMMON NORMALS: Equal, round and reactive pupils present and EOMs intact bilaterally PUPIL: Yes Equal, round and reactive pupils present Neck/C-Spine: COMMON NORMALS: full ROM and supple Chest: COMMONS NORMALS: normal inspection of the chest and normal palpation of entire chest wall Resp: COMMON NORMALS: normal respiratory effort, No retractions, No use of accessory muscles and clear to auscultation bilaterally AUSCULTATION: clear to auscultation bilaterally Cardio: COMMON NORMALS: regular rhythm and No murmurs present (Cardio) RATE: tachycardic RHYTHM: regular rhythm GI: COMMON NORMALS: Normal to inspection, nondistended, normoactive bowel sounds present, Soft to palpation, non-tender and no masses PALPATION: Yes Soft to palpation Extremity: COMMON NORMALS: normal to inspection and full ROM Neuro: COMMON NORMALS: patient oriented x3, moves all extremities and no focal motor deficits Psych: COMMON NORMALS: cooperative THOUGHT CONTENT: Yes Suicidality present and Yes Hallucination(s) present Skin: COMMON NORMALS: no rashes or lesions noted and no wounds GENERAL SKIN EXAM: no rashes or lesions noted Course Vital Signs: Vital signs: Vital Signs Temperature 98.9 F 05/15/22 19:05 Pulse Rate 115 H 05/15/22 19:05 Respiratory Rate 18 05/15/22 19:05 Blood Pressure 105/69 05/15/22 19:05 Pulse Oximetry 92 05/15/22 19:05 Oxygen Delivery Me thod 05/15/22 19:05 MDM - Psych Medical Decision Making Patient presents with hallucinations along with suicidal ideations he does have a history of schizophrenia he has a history of alcoholism along with cirrhosis is ammonia is mildly elevated believe his hallucinations is from his schizophrenia I do not believe he has hepatic encephalopathy I did speak to the psychiatrist will admit we will have hospitalist consult as well with his cirrhosis. Lab Data 05/15/22 19:25 05/15/22 19: Laboratory Results WBC 9.6 10^3/uL (4.0-10.0) 05/15/22: RBC 4.77 10^6/uL (4.1-5.3) 05/15/22: Hgb 16.6 g/dL (11.7-16.6) 05/15/22: Hct 48.6 % (42.0-52.0) 05/15/22: MCV 101.9 fl (80-94) H 05/15/22 19: MCH 34.8 pg (28.0-34.0) H 05/15/22: MCHC 34.2 g/dL (30.0-36.0) 05/15/22: RDW 11.8 % (12.1-15.1) L 05/15/22: Plt Count 204 10^3/cmm (130-400) 05/15/22: MPV 10.7 fL (7.4-10.4) H 05/15/22:25 Neut % (Auto) 73.6 % 05/15/22: Lymph % (Auto) 12.5 % 05/15/22: [place] % (Auto) 9.3 % 05/15/22: Eos % (Auto) 3.4 % 05/15/22: Baso % (Auto) 0.9 % 05/15/22: Neut # (Auto) 7.05 10^3/uL (1.8-7.7) 05/15/22: Lymph # (Auto) 1.2 10^3/uL (0.8-4.8) 12/06/22 19:25 [place] # (Auto) 0.9 10^3/uL (0.2-0.9) 05/15/22 19:25 Eos # (Auto) 0.3 10^3/uL (0.0-0.8) 05/15/22 19:25 Baso # (Auto) 0.1 10^3/uL (0.0-0.1) 05/15/22 19:25 Nucleated RBC % (auto) 0 % 05/15/22 19:25 Nucleated RBCs # 0.0 /100WBC 05/15/22 19:25 Sodium 135 mmol/L (136-145) L 05/15/22 19:25 Potassium 3.5 mmol/L (3.5-5.1) 05/15/22:25 Chloride 100 mmol/L (98-107) 05/15/22 19:25 Carbon Dioxide 23 mmol/L (22-29) 05/15/22:25 Anion Gap 15.5 (5-19) 05/15/22 19:25 BUN 4 mg/dL (6-20) L 05/15/22 19:25 Creatinine 0.5 mg/dL (0.7-1.2) L 05/15/22 19:25 GFR Calculation 177.5 mL/min (90-130) H 05/15/22:25 Glucose 131 mg/dL (65-115) H 05/15/22 19:25 Calculated Osmolality 279 mOsm/kg (285-295) L 05/15/22:25 Calcium 8.3 mg/dL (8.5-10.5) L 05/15/22:25 Total Bilirubin 1.0 mg/dL (0.15-1.2) 05/15/22 19:25 AST 50 U/L (0-40) H 05/15/22 19:25 ALT 15 U/L (0-41) 05/15/22 19:25 Alkaline Phosphatase 96 U/L (40-130) 05/15/22 19:25 Ammonia 87 umol/L (16-60) H 05/15/22 19:25 Total Protein 6.8 g/dL (6.6-8.7) 05/15/22 19:25 Albumin 2.4 g/dL (3.5-5.2) L 05/15/22 19:25 Globulin 4.4 g/dL (1.3-4.6) 05/15/22 19:25 Salicylates < 0.3 mg/dL (3-10) L 05/15/22 19:25 Urine Opiates Screen Negative ng/mL (Negative) 05/15/22 20:10 Acetaminophen < 5.0 ug/mL (10-30) L 05/15/22 19:25 Ur Barbiturates Screen Negative ng/mL (Negative) 05/15/22 20:10 Ur Phencyclidine Scrn Negative ng/mL (Negative) 05/15/22 20:10 Ur Amphetamines Screen Negative ng/mL (Negative) 05/15/22 20:10 U Benzodiazepines Scrn Negative ng/mL (Negative) 05/15/22 20:10 Urine Cocaine Screen Negative ng/mL (Negative) 05/15/22 20:10 U Marijuana (THC) Screen Negative ng/mL (Negative) 05/15/22 20:10 Ethyl Alcohol 107 mg/dL (0-10) H 05/15/22 19:25 Discharge Plan Discharge Admit Provider: Samuel Torres Condition: Stable Coding Level of Care Code ED Supervisor [employer] for [place] Fwd Exam Comprehensive
[2022-05-15 19:48] LABS: Basophils # 0.1 10^3/uL (0.0-0.1); Basophils % 0.9 %; Eosinophils # 0.3 10^3/uL (0.0-0.8); Eosinophils % 3.4 %; Hematocrit 48.6 % (42.0-52.0); Hemoglobin 16.6 g/dL (11.7-16.6); Lymphocytes # 1.2 10^3/uL (0.8-4.8); Lymphocytes % 12.5 %; Mean Corpuscular HGB Conc 34.2 g/dL (30.0-36.0); Mean Corpuscular Hemoglobin 34.8 pg (28.0-34.0); Mean Corpuscular Volume 101.9 fl (80-94); Mean Platelet Volume 10.7 fL (7.4-10.4); Monocytes # 0.9 10^3/uL (0.2-0.9); Monocytes % 9.3 %; Neutrophils # 7.05 10^3/uL (1.8-7.7); Neutrophils % 73.6 %; Nucleated Red Blood Cells % 0 %; Platelet Count 204 10^3/cmm (130-400); Red Blood Count 4.77 10^6/uL (4.1-5.3); Red Cell Distribution Width 11.8 % (12.1-15.1); White Blood Count 9.6 10^3/uL (4.0-10.0)
[2022-05-15 20:07] LABS: Alanine Aminotransferase 15 U/L (0-41); Albumin Level 2.4 g/dL (3.5-5.2); Alcohol Level 107 mg/dL (0-10); Alkaline Phosphatase 96 U/L (40-130); Anion Gap 15.5 (5-19); Aspartate Amino Transferase 50 U/L (0-40); Blood Urea Nitrogen 4 mg/dL (6-20); Calcium 8.3 mg/dL (8.5-10.5); Carbon Dioxide 23 mmol/L (22-29); Chloride 100 mmol/L (98-107); Globulin 4.4 g/dL (1.3-4.6); Glomerular Filtration Rate 177.5 mL/min (90-130); Glucose 131 mg/dL (65-115); Osmolality Calculated 279 mOsm/kg (285-295); Potassium 3.5 mmol/L (3.5-5.1); Sodium 135 mmol/L (136-145); Total Protein 6.8 g/dL (6.6-8.7)
[2022-05-15 20:08] LABS: Acetaminophen < 5.0 ug/mL (10-30); Salicylate < 0.3 mg/dL (3-10)
[2022-05-15 20:19] LABS: Ammonia 87 umol/L (16-60)
[2022-05-15 20:26] LABS: Amphetamines Screen Urine Negative (Negative); Barbiturates Screen Urine Negative (Negative); Benzodiazepines Screen Urine Negative (Negative); Cocaine Screen Urine Negative (Negative); Opiate Screen Urine Negative (Negative); PCP Screen Urine Negative (Negative); THC Screen Urine Negative (Negative)
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
--- NOTE | 2022-05-15 20:54 | PC.NURSE ---
attempted report x 1, unable to give hand off, nurse is still on the floor talking to patients.
--- NOTE | 2022-05-15 21:00 | PC.NURSE ---
96 Hour Rights Pt served 96 Hour Rights paperwork @ 2100. Pt denied need for further education or information.
[2022-05-15 21:17] VITALS: BP 121/82; PULSE 107; RESP 22; O2SAT 94
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
[2022-05-15] MEDS: lactulose oral liq 20 gm/30 mL UDC 30 GM PO (21:51)
[2022-05-15] MEDS: hyDROXYzine 25 mg Capsule 50 MG PO (21:52)
[2022-05-15] MEDS: potassium chloride ER 20 mEq Tablet 40 MEQ PO (21:52)
[2022-05-15] MEDS: trazodone 50 mg Tablet PO (21:52)
[2022-05-15 22:00] VITALS: BP 114/79; PULSE 116; RESP 17; TEMP 37.3; O2SAT 93
[2022-05-16 06:00] VITALS: BP 120/78; PULSE 94; RESP 16; TEMP 36.8; O2SAT 90
--- NOTE | 2022-05-16 08:46 | PC.NURSE ---
SHIFT ASSESSMENT PLEASANT & COOPERATIVE WITH SHIFT ASSESSMENT, AVOIDED EYE CONTACT WITH THIS NURSE. PT LOOKED TO THE WALL AND ANSWERED QUESTIONS ASKED OF HIM. REFERRING TO HIMSELF JOHNNIE .... PT SAID JOHNNIE IS GOOD, JOHNNIE IS GOOD. DENIES WANTING TO HURT HIMSELF OR ANYONE ELSE CURRENTLY... SAID HIS IS IN A LOT OF PAIN FROM GETTING DRAINED YESTERDAY. WHEN STAFF INQUIRED ABOUT WHAT THAT MEANT, PT SAID I GET MY BELLY DRAINED BECAUSE THEY SAY I HAVE CIRRHOSIS OF THE LIVER. PT STATED THEY JUST STARTED DOING THAT RECENTLY .... SAID HE WAS SEEING AND HEARING THINGS WHEN STAFF INQUIRED TO WHAT HE WAS SEEING/HEARING, PT STATED OH I SEE GHOSTS AND DEMONS.
[2022-05-16] MEDS: lactulose oral liq 20 gm/30 mL UDC 30 GM PO ×3 (08:50→20:19)
[2022-05-16] MEDS: FUROsemide 40 mg Tablet PO ×2 (08:51→20:23)
[2022-05-16] MEDS: pantoprazole DR 40 mg Tablet PO (08:51)
[2022-05-16] MEDS: folic acid 1 mg Tablet PO (08:51)
[2022-05-16] MEDS: spironolactone 25 mg Tablet PO (08:52)
[2022-05-16] MEDS: thiamine 100 mg Tablet PO (08:52)
[2022-05-16] MEDS: magnesium lactate 84 mg Tablet PO ×2 (09:17→20:24)
--- NOTE | 2022-05-16 11:50 | P.NPUHP_ITS ---
Providers/Chief Complaint Admitting Physician: Samuel Torres MD Primary Care Provider: YENI Perez Chief Complaint: SI HPI NPU History of Present Illness Reinaldo Flores is a 46 year old male who presented to the emergency department with the following report: Chief Complaint: Psychiatric Symptoms Stated Complaint: SI Time Seen by Provider: 05/15/22 19:10 Source: EMS Mode of arrival: EMS Limitations: no limitations History of Present Illness: 46-year-old male who states he has been hearing voices since yesterday he has a history of cirrhosis is an alcoholic he states that he has heard voices throughout the night's been telling to kill himself he states he does have a plan to shoot himself he denies any worsening improving factors. He is talking a third person currently Associated symptoms: Reports auditory hallucinations, depression and suicidal ideation. He was admitted to the neuropsychiatric unit for definitive treatment of those issues. He presents today reporting that he does not have any current medications because he and [facility] had an issue because they were going to require him to be a walk-in and he cannot be around that many people for that long so his medication ended which included an Invega injection. He reports that he has had significant allergies but he cannot remember them all in his chart lists Clozaril Depakote and Haldol. He reports that after being off of his Invega shot for the past 2 months things started spiraling out of control. He presented to the emergency department and was placed on a 96-hour hold with reports of suicidal intent. Which he continues to endorse. We discussed the risks benefits and alternatives of restarting his Invega as well as restarting his Celexa. He reports having cirrhosis of the liver and cutting down significantly on his drinking but he does endorse continuing to drink. He reports he had his abdomen drained as recently as Saturday. He reports that it was recommended that he come to the hospital because he was having blackouts and then having dangerous behavior during those times. He reports being hospitalized psychiatrically possibly 50 times in the past. He smokes about 2 packs of cigarettes a day, reports he drinks whiskey mixed with sweet tea daily. There is a gun in the home and he had in fact reportedly shot 1 off prior to coming to the hospital. Per his 12/17/2021 [facility] inpatient psychiatric evaluation: History of Present Illness Reinaldo Flores is a 46 year old male with a history of Schizophrenia and Alcohol Dependence admitted on 96 hour hold as he had reported that he made a decision to discuss his dream with someone and it was blown out of proportion. He reports that he was unable to leave the emergency department because he would not contract for safety and give up his guns. Reinaldo reports that his was scared about something he said and it was reported in [facility] that Reinaldo had reported thoughts to blow his head off with a gun. He reports significant alcohol use for all my life. and reports drinking a 1/2 gallon of alcohol daily for several years. He reports past history of schizophrenia and reports that the voices have been controlled by his medication and reports that he has had violent thoughts to hurt others in the past. He endorsed a history of alco hol withdrawal symptoms, include seizures, blackouts and shakes. Past Psychiatric History: Is notable for multiple inpatient psychiatric hospitalizations. He reports last being admitted at [facility] in [facility] for inpatient he reports history of alcohol dependence, schizophrenia and traumatic brain injury. He was last seen at his outpatient appointment 3 days ago at [facility] in [facility]Followed by Dr. Bustamante in [facility]. Hx of multiple psychiatric medication trials: zyprexa, valium, campral, naltrexone, Current medications: invega sustenna IM, Substance abuse hx: reports misuse of stimulants in the past but reports active use of alcohol for over 20 years with longest period of abstinence was 1 year. 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 Meds NPU Home Medications Medication Instructions Recorded Confirmed Last Taken Type paliperidone palmitate 234 mg/1.5 234 mg (1.5 mL) IM Q30D #1.5 mL 02/05/22 05/14/22 Unknown Rx mL intramuscular syringe (Invega Sustenna) citalopram 40 mg tablet (Celexa) 40 mg PO DAILY #30 tabs 02/20/22 05/14/22 03/10/22 Rx paliperidone 3 mg tablet,extended 3 mg PO QAM #30 tabs 02/20/22 05/14/22 03/10/22 Rx release 24 hr (Invega) folic acid 1 mg tablet 1 mg PO DAILY 30 days #30 tabs 04/16/22 05/14/22 Unknown Rx magnesium L-lactate 84 mg 84 mg PO BID 30 days #60 tabs 04/16/22 05/14/22 Unknown Rx tablet,extended release (Magtab) spironolactone 25 mg tablet 25 mg PO BID 30 days #60 tabs 04/16/22 05/14/22 Unknown Rx thiamine HCl (vitamin B1) 100 mg 100 mg PO DAILY 30 days #30 tabs 04/16/22 05/14/22 Unknown Rx tablet potassium chloride 10 mEq 10 meq PO DAILY 04/28/22 05/14/22 Unknown History tablet,extended release furosemide 40 mg tablet (Lasix) 40 mg PO BID 30 days #30 tabs 04/29/22 05/14/22 Unknown Rx pantoprazole 40 mg tablet,delayed 40 mg PO DAILY #30 tabs 04/29/22 05/14/22 Unknown Rx release Allergies Allergy/AdvReac Type Severity Reaction Status Date / Time clozapine [From Clozaril] AdvReac Severe Lowered Verified 05/14/22 14:11 his WBC he says divalproex sodium AdvReac Severe swelling Verified 05/14/22 14:11 [From Depakote] haloperidol [From Haldol] AdvReac Severe swelling Verified 05/14/22 14:11 nitroglycerin AdvReac Severe Stopped Verified 05/14/22 14:11 heart Bee stings Allergy Severe Swelling & Uncoded 04/25/22 10:33 breathing problems, Anaphylactic shock PFS NPU PFSH: Medical History Acne rosacea ALC (alcoholic liver cirrhosis) Alcohol dependence, uncomplicated Bipolar disorder Cerebrovascular accident (CVA) Controlled diabetes mellitus with hyperglycemia Current smoker DM neuropathy, painful Essential (primary) hypertension History of alcohol abuse daily use of hard liquor History of coronary artery disease History of CVA (cerebrovascular accident) 2009 Right side weakness due to a bleed History of memory loss History of schizophrenia Mixed hyperlipidemia Nicotine dependence, cigarettes, uncomplicated Psoriasis Psychiatric care Seizure disorder Surgical History History of colonoscopy with polypectomy 2015 History of esophagogastroduodenoscopy (EGD) History of eye surgery History of heart artery stent Family History Other Dementia Diabetes Hypertension Lung disease Psychiatric illness Stroke Denies family history of Chronic kidney disease (CKD) Anesthesia complication Bleeding disorder Cancer Social History Smoking and tobacco status: current every day smoker cigarettes Packs smoked per day: 2.5 Years cigarettes smoked: 38 Second hand smoke exposure: Yes Smoking risk assessment/counseling performed?: Yes Alcohol intake: current Alcohol intake frequency: 0-2 Drinks per Day Alcohol type: hard liquor Desire information about alcohol rehabilitation?: No Counseling given: No Desire information about substance/drug rehabilitation?: No Counseling given: No Adopted: No Caregiver/support person: Yes Lives independently: No Household members: friend(s) and caregiver Housing: Manufactured/Mobile home Marital status: Number of children: 8 service: No Current occupational status: disabled Pets and animals: Yes History of recent travel: Yes Details: month an a half ago Out of state: Yes Current gender identity: Male Mental Status Exam MSE Comments: This is an obese white male with hospital scrubs on with limited eye contact and appearing disheveled/with poor grooming. No abnormal movements except for mild psychomotor agitation rocking back and forth during the interview. Cooperative and in mild to moderate distress. Speech was decreased rate and volume. Mood described as depressed, affect congruent. Thought process organized. Thought content: Patient endorsed suicidal ideation but denied homicidal ideation, there were no delusions reported or noted, he denied any auditory or visual hallucinations. Attention and concentration appeared intact and memory was mostly reliable but none were formally tested. The alert and oriented x3. Insight and judgment are limited, impulse control is impaired, intellectual ability limited. Vitals/I&O/Wt Last Vital Signs Temp 98.2 F 05/16/22 06:00 Pulse 94 05/16/22 06:00 Resp 16 05/16/22 06:00 BP 120/78 05/16/22 06:00 Pulse Ox 90 05/16/22 06:00 O2 Del Method 05/16/22 06:00 Weight last 48 hrs Weight 86.183 kg Data NPU 05/15/22 19:25 05/15/22 19:25 A&P Assessment and plan (1) Depression with suicidal ideation: (2) Auditory hallucinations: (3) Diabetic feet: (4) Alcohol dependence, uncomplicated: (5) Alcohol use disorder, severe, dependence: (6) Schizophrenia: Qualifiers: Schizophrenia type: unspecified Qualified Code(s): F20.9 - Schizophrenia, unspecified (7) Seizure disorder: Plan 46 year old white male with reported history of traumatic brain injury, schizophrenia and alcohol dependence admitted with inability to contract for safety with reports of suicidal ideation, violent and dangerous behavior. 1. Continue current medication. We will restart previous medications with consideration for liver. 2. Encourage patient in milieu/group/individual therapy 3. Continue q 15 minutes checks for safety. 4. Encourage sober living treatment outside of discharge at the highest level of care to which he is willing to commit. Involuntary Hold Information 96 Hour Hold: 96 Hour Involuntary Admission: Yes 96 Hour Hold Ending Date: 05/21/22 96 Hour Hold Ending Time: 20:31 Attestations NPU Medical Necessity Statement*: And hospitalization is medically necessary and the clinically appropriate intervention at this time. We will monitor medica tions and make changes as indicated. He will be in the hospital for over 2 midnights. Likely length of stay 4-6 days. Coding Level of Care Code Acute Master Cosmetologist for [facility] Fwd Diagnoses Depression with suicidal ideation F32.A; R45.851 Auditory hallucinations R44.0 Diabetic feet E11.8 Alcohol dependence, uncomplicated F10.20 Alcohol use disorder, severe, dependence F10.20 Schizophrenia F20.9 Schizophrenia type: unspecified Seizure disorder G40.909
[2022-05-16 12:35] LABS: Alanine Aminotransferase 13 U/L (0-41); Albumin Level 2.1 g/dL (3.5-5.2); Alkaline Phosphatase 85 U/L (40-130); Anion Gap 13.9 (5-19); Aspartate Amino Transferase 47 U/L (0-40); Blood Urea Nitrogen 6 mg/dL (6-20); Calcium 8.6 mg/dL (8.5-10.5); Carbon Dioxide 25 mmol/L (22-29); Chloride 100 mmol/L (98-107); Globulin 4.5 g/dL (1.3-4.6); Glomerular Filtration Rate 229.6 mL/min (90-130); Glucose 97 mg/dL (65-115); Osmolality Calculated 278 mOsm/kg (285-295); Potassium 3.9 mmol/L (3.5-5.1); Sodium 135 mmol/L (136-145); Total Bilirubin 1.4 mg/dL (0.15-1.2); Total Protein 6.6 g/dL (6.6-8.7)
[2022-05-16 14:00] VITALS: BP 148/98; PULSE 98; RESP 17; TEMP 36.6; O2SAT 90
--- NOTE | 2022-05-16 14:40 | P.PN_ITS ---
Subjective Subjective: Patient reports he has abdominal pain at the paracentesis site. Denies fevers, chills, chest pain or shortness of breath. Medications: Reviewed: Yes Vitals/I&O/Wt Last Vital Signs Temp 98.2 F 05/16/22 06:00 Pulse 94 05/16/22 06:00 Resp 16 05/16/22 06:00 BP 120/78 05/16/22 06:00 Pulse Ox 90 05/16/22 06:00 O2 Del Method 05/16/22 06:00 Weight last 48 hrs Weight 86.183 kg Physical Exam Narrative: General: Patient is awake. Head: Normocephalic. Atraumatic. EOM intact. Neck: No JVD. Cardiovascular: RRR. No gallops. No murmurs. No peripheral edema. Lungs: Clear to auscultation, no use of accessory muscles, no crackles or wheezes. Skin: No jaundice. No rashes. Abdomen: Abdomen is slightly distended. He has a bandage over his paracentesis site. Tender to palpation. Genito Urinary: Genital exam not performed since complaints not related. Rectal: Rectal exam not performed since no symptoms indicated blood loss. Extremities: No cyanosis or clubbing. Musculoskeletal: No overt joint deformity Neurological: Moves all 4 extremities. No myoclonus. Data 05/15/22 19:25 05/16/22 09:45 A&P Assessment and plan (1) ALC (alcoholic liver cirrhosis): Decompensated with ascites With elevated ammonia Exam not consistent with hepatic encephalopathy Continue rifaximin Continue lactulose, titrate to 2-3 bowel movements per day Continue Lasix Continue Aldactone Continue potassium supplementation Defer referral for outpatient TIPS to primary care provider (2) Homicidal ideation: Management per psychiatry (3) Schizophrenia: Management per psychiatry Qualifiers: Schizophrenia type: unspecified Qualified Code(s): F20.9 - Schizophrenia, unspecified (4) Nicotine dependence, cigarettes, uncomplicated: Would benefit from cessation Continue nicotine patch (5) Essential (primary) hypertension: Continue diuretics (6) Controlled diabetes mellitus with hyperglycemia: Most recent A1c is 5.6 Diet controlled Qualifiers: Diabetes mellitus type: type 2 Diabetes mellitus longterm insulin use: without longterm use Qualified Code(s): E11.65 - Type 2 diabetes mellitus with hyperglycemia (7) Alcohol dependence, uncomplicated: Would benefit from cessation Continue thiamine Continue folic acid Plan Thank you for this consultation. Medicine will sign off. Please not hesitate to call with any questions or reconsult. Attestations Medical Necessity Statement*: Per primary Coding Level of Care Code Acute Geomagnetician for g Fwd Diagnoses ALC (alcoholic liver cirrhosis) K70.30 Homicidal ideation R45.850 Schizophrenia F20.9 Schizophrenia type: unspecified Nicotine dependence, cigarettes, uncomplicated F17.210 Essential (primary) hypertension I10 Controlled diabetes mellitus with hyperglycemia E11.65 Diabetes mellitus type: type 2 Diabetes mellitus terminal supervisor insulin use: without longterm use Alcohol dependence, uncomplicated F10.20
[2022-05-16 19:57] VITALS: BP 106/72; PULSE 112; RESP 17; TEMP 37.2; O2SAT 90
[2022-05-16] MEDS: trazodone 50 mg Tablet PO (20:21)
[2022-05-17 06:00] VITALS: BP 100/62; PULSE 94; RESP 16; TEMP 36.7; O2SAT 92
[2022-05-17] MEDS: multivitamin therapeutic Tablet 1 TAB PO (08:48)
[2022-05-17] MEDS: pantoprazole DR 40 mg Tablet PO (08:48)
[2022-05-17] MEDS: spironolactone 25 mg Tablet PO (08:48)
[2022-05-17] MEDS: FUROsemide 40 mg Tablet PO (08:48)
[2022-05-17] MEDS: thiamine 100 mg Tablet PO (08:48)
[2022-05-17] MEDS: folic acid 1 mg Tablet PO (08:48)
[2022-05-17] MEDS: lactulose oral liq 20 gm/30 mL UDC 30 GM PO ×2 (08:49→15:08)
[2022-05-17] MEDS: LORazepam 2 mg Tablet PO (08:49)
[2022-05-17] MEDS: magnesium lactate 84 mg Tablet PO (09:21)
[2022-05-17] MEDS: nicotine 4 mg lozenge MUCOUS MEM ×2 (11:55→14:30)
[2022-05-17 12:15] VITALS: BP 107/72; PULSE 103; RESP 16; TEMP 36.8; O2SAT 92
[2022-05-17 12:29] LABS: Glucose Point of Care 113 mg/dL (70-110)
--- NOTE | 2022-05-17 13:16 | PC.NURSE ---
[facility] completed 1215. Said nausea was improved; only slight at this time. Mild tremors noted; less than earlier. Still has numbness and tingling in feet. Denied other complaints. Said felt shaky. Didn't eat. Reported he was diabetic. Blood sugar was within limits. Pt provided cheese crackers. Resting quietly.
[2022-05-17 14:00] VITALS: BP 116/82; PULSE 110; RESP 18; O2SAT 95
--- NOTE | 2022-05-17 15:51 | P.NPUPN_ITS ---
Subjective NPU Subjective: Patient presented today mostly still somatically preoccupied with his liver disease and the possibility of the need in his mind for another draining. We discussed that in my experience that this is usually planned based on fluid production and not just as needed. We agreed to reach out to the hospitalist that had signed off yesterday. And that person would come tomorrow and evaluate and educate him on how they will proceed moving forward. He endorsed some pain management options while he awaits that evaluation. Mental Status Exam 2 MSE Comments: This is an obese white male with hospital scrubs on with limited eye contact and appearing disheveled/with poor grooming. No abnormal movements except for mild psychomotor agitation rocking back and forth during the interview. Cooperative and in mild to moderate distress. Speech was decreased rate and volume. Mood described as depressed, affect congruent. Thought process organized. Thought content: Patient endorsed suicidal ideation but denied homicidal ideation, there were no delusions reported or noted, he denied any auditory or visual hallucinations. Attention and concentration appeared intact and memory was mostly reliable but none were formally tested. The alert and oriented x3. Insight and judgment are limited, impulse control is impaired, intellectual ability limited. Vitals/I&O/Wt Last Vital Signs Temp 98.2 F 05/17/22 12:15 Pulse 103 H 05/17/22 12:15 Resp 16 05/17/22 12:15 BP 107/72 05/17/22 12:15 Pulse Ox 92 05/17/22 12:15 O2 Del Method 05/17/22 12:15 Weight last 48 hrs Weight 86.183 kg Data NPU 05/15/22 19:25 05/16/22 09:45 A&P Assessment and plan (1) Depression with suicidal ideation: (2) Auditory hallucinations: (3) Diabetic feet: (4) Alcohol dependence, uncomplicated: (5) Alcohol use disorder, severe, dependence: (6) Schizophrenia: Qualifiers: Schizophrenia type: unspecified Qualified Code(s): F20.9 - Schizophrenia, unspecified (7) Seizure disorder: Plan 46 year old white male with reported history of traumatic brain injury, schizophrenia and alcohol dependence admitted with inability to contract for safety with reports of suicidal ideation, violent and dangerous behavior. 1. Continue current medication. We will restart previous medications with consideration for liver. 2. Encourage patient in milieu/group/individual therapy 3. Continue q 15 minutes checks for safety. 4. Encourage sober living treatment outside of discharge at the highest level of care to which he is willing to commit. 5. We will await hospitalist evaluation tomorrow for management of pain and fluid collection. Involuntary Hold Information 96 Hour Hold: 96 Hour Involuntary Admission: Yes 96 Hour Hold Ending Date: 05/21/22 96 Hour Hold Ending Time: 20:31 Attestations NPU Medical Necessity Statement*: And hospitalization is medically necessary and the clinically appropriate intervention at this time. We will monitor medications and make changes as indicated. Likely length of stay 3-5 days. Coding Level of Care Code Acute Local Combination Truck Driver for g Fwd Diagnoses Depression with suicidal ideation F32.A; R45.851 Auditory hallucinations R44.0 Diabetic feet E11.8 Alcohol dependence, uncomplicated F10.20 Alcohol use disorder, severe, dependence F10.20 Schizophrenia F20.9 Schizophrenia type: unspecified Seizure disorder G40.909
[2022-05-17] MEDS: ondansetron 4 MG Tablet PO (18:26)
[2022-05-17] MEDS: loperamide 2 mg Capsule PO (18:26)
[2022-05-17] MEDS: ibuprofen 800 mg tablet PO (18:43)
[2022-05-17 20:09] VITALS: RESP 18
[2022-05-18 06:00] VITALS: BP 100/62; PULSE 76; RESP 16; TEMP 36.6; O2SAT 93
[2022-05-18] MEDS: nicotine 4 mg lozenge MUCOUS MEM ×3 (07:44→14:33)
[2022-05-18] MEDS: thiamine 100 mg Tablet PO (07:44)
[2022-05-18] MEDS: potassium chloride ER 10 mEq Tablet PO (07:45)
[2022-05-18] MEDS: pantoprazole DR 40 mg Tablet PO (07:45)
[2022-05-18] MEDS: FUROsemide 40 mg Tablet PO ×2 (07:45→20:49)
[2022-05-18] MEDS: spironolactone 25 mg Tablet PO (07:45)
[2022-05-18] MEDS: multivitamin therapeutic Tablet 1 TAB PO (07:45)
[2022-05-18] MEDS: magnesium lactate 84 mg Tablet PO ×2 (07:45→20:49)
[2022-05-18] MEDS: folic acid 1 mg Tablet PO (07:45)
--- NOTE | 2022-05-18 08:14 | P.PN_ITS ---
Subjective Subjective: Patient complains of abdominal distention and discomfort. Denies fevers, chills, chest pain or shortness of breath. Medications: Reviewed: Yes Vitals/I&O/Wt Last Vital Signs Temp 97.9 F 05/18/22 06:00 Pulse 76 05/18/22 06:00 Resp 16 05/18/22 06:00 BP 100/62 05/18/22 06:00 Pulse Ox 93 05/18/22 06:00 O2 Del Method 05/17/22 12:15 Physical Exam Narrative: General: Patient is awake. Head: Normocephalic. Atraumatic. EOM intact. Neck: No JVD. Cardiovascular: RRR. No gallops. No murmurs. No peripheral edema. Lungs: Clear to auscultation, no use of accessory muscles, no crackles or wheezes. Skin: No jaundice. No rashes. Abdomen: Abdomen is more distended from prior exam. Slightly tender to palpation. Genito Urinary: Genital exam not performed since complaints not related. Rectal: Rectal exam not performed since no symptoms indicated blood loss. Extremities: No cyanosis or clubbing. Musculoskeletal: No overt joint deformity Neurological: Moves all 4 extremities. No myoclonus. Data 05/15/22 19:25 05/16/22 09:45 A&P Assessment and plan (1) ALC (alcoholic liver cirrhosis): Decompensated with ascites Continue rifaximin Continue lactulose, titrate to 2-3 bowel movements per day Continue Lasix Continue Aldactone Continue potassium supplementation Consulting radiology for paracentesis (2) Homicidal ideation: Management per psychiatry (3) Schizophrenia: Management per psychiatry Qualifiers: Schizophrenia type: unspecified Qualified Code(s): F20.9 - Schizophrenia, unspecified (4) Nicotine dependence, cigarettes, uncomplicated: Would benefit from cessation Continue nicotine patch (5) Essential (primary) hypertension: Continue diuretics (6) Controlled diabetes mellitus with hyperglycemia: Diet controlled Qualifiers: Diabetes mellitus type: type 2 Diabetes mellitus retirement insulin use: without truck terminal manager use Qualified Code(s): E11.65 - Type 2 diabetes mellitus with hyperglycemia (7) Alcohol dependence, uncomplicated: Would benefit from cessation Continue thiamine Continue folic acid Plan Medicine will follow peripherally. Please not hesitate to call with any questions or reconsult. Attestations Medical Necessity Statement*: Per primary. Coding Level of Care Code Acute Plastics Seasoner Operator for Chg Fwd Diagnoses ALC (alcoholic liver cirrhosis) K70.30 Homicidal ideation R45.850 Schizophrenia F20.9 Schizophrenia type: unspecified Nicotine dependence, cigarettes, uncomplicated F17.210 Essential (primary) hypertension I10 Controlled diabetes mellitus with hyperglycemia E11.65 Diabetes mellitus type: type 2 Diabetes mellitus truck terminal manager insulin use: without retirement use Alcohol dependence, uncomplicated F10.20
--- NOTE | 2022-05-18 09:21 | US_ITS ---
WS: [id number] ULTRASOUND-GUIDED THERAPEUTIC PARACENTESIS Procedure, risks, and complications have been explained to the patient. Consent is obtained. Utilizing aseptic technique and 1% buffered lidocaine, a small dermatome was made through which a 5 F rench Yueh catheter was inserted. Approximately 3600 ml of dark yellow peritoneal fluid was obtained without difficulty. No complications encountered. US/US paracentesis abd [id number] IMPRESSION: Uncomplicated paracentesis yielding 3600 ml of peritoneal fluid.
[2022-05-18] MEDS: lactulose oral liq 20 gm/30 mL UDC 30 GM PO (10:13)
--- NOTE | 2022-05-18 11:23 | PC.NURSE ---
lead technical writer on unit now to do ultrasound on pt belly
[2022-05-18] MEDS: citalopram 20 mg Tablet 10 MG PO (11:34)
--- NOTE | 2022-05-18 12:23 | P.NPUPN_ITS ---
Subjective NPU Subjective: Patient presented today reporting that he is still feeling the pressure from fluid buildup. Also endorsing pain. We discussed the fact that he hospitalist had come by and we will await his position on where to go from here. We discussed initiating his Invega injection 234 mg IM to the deltoid as a loading dose as well as starting Celexa at only 10 mg p.o. every morning due to his liver dysfunction and he agreed to proceed as it is documented in this note after discussion of the risks, benefits and alternatives. Mental Status Exam 2 MSE Comments: This is an obese white male with hospital scrubs on with limited eye contact and appearing disheveled/with poor grooming. No abnormal movements except for mild psychomotor agitation rocking back and forth during the interview. Cooperative with exam in mild to moderate distress. Speech was decreased rate and volume. Mood described as depressed, affect congruent. Thought process organized. Thought content: Patient endorsed suicidal ideation but denied homicidal ideation, there were no delusions reported or noted, he denied any auditory or visual hallucinations. Attention and concentration appeared intact and memory was mostly reliable but none were formally tested. The alert and oriented x3. Insight and judgment are limited, impulse control is impaired, intellectual ability limited. Vitals/I&O/Wt Last Vital Signs Temp 97.9 F 05/18/22 06:00 Pulse 76 05/18/22 06:00 Resp 16 05/18/22 06:00 BP 100/62 05/18/22 06:00 Pulse Ox 93 05/18/22 06:00 O2 Del Method 05/17/22 12:15 Data NPU 05/15/22 19:25 05/16/22 09:45 A&P Assessment and plan (1) Depression with suicidal ideation: (2) Auditory hallucinations: (3) Diabetic feet: (4) Alcohol dependence, uncomplicated: (5) Alcohol use disorder, severe, dependence: (6) Schizophrenia: Qualifiers: Schizophrenia type: unspecified Qualified Code(s): F20.9 - Schizophrenia, unspecified (7) Seizure disorder: Plan 46 year old white male with reported history of traumatic brain injury, schizophrenia and alcohol dependence admitted with inability to contract for safety with reports of suicidal ideation, violent and dangerous behavior. 1. Continue current medication. We will restart Invega Sustenna 234 mg IM to the deltoid loading dose and Celexa 10 mg p.o. every morning with a target max dose of 20 mg given his liver dysfunction. 2. Encourage patient in milieu/group/individual therapy 3. Continue q 15 minutes checks for safety. 4. Encourage sober living treatment outside of discharge at the highest level of care to which he is willing to commit. 5. Appreciate continued hospitalist involvement for management of pain and fluid collection and we will follow recommendations as indicated. Involuntary Hold Information 96 Hour Hold: 96 Hour Involuntary Admission: Yes 96 Hour Hold Ending Date: 05/21/22 96 Hour Hold Ending Time: 20:31 Attestations NPU Medical Necessity Statement*: And hospitalization is medically necessary and the clinically appropriate intervention at this time. We will monitor medications and make changes as indicated. Likely length of stay 3-5 days. Coding Level of Care Code Acute Salon Sales Consultant for g Fwd Diagnoses Depression with suicidal ideation F32.A; R45.851 Auditory hallucinations R44.0 Diabetic feet E11.8 Alcohol dependence, uncomplicated F10.20 Alcohol use disorder, severe, dependence F10.20 Schizophrenia F20.9 Schizophrenia type: unspecified Seizure disorder G40.909
[2022-05-18 14:00] VITALS: BP 121/82; PULSE 117; RESP 17; TEMP 37.4; O2SAT 96
[2022-05-18] MEDS: paliperidone palmitate 234 mg Syringe IM (14:33)
--- NOTE | 2022-05-18 14:40 | PC.NURSE ---
off unit to get fluid drained off abdomen ... accompanied by security and NPU nurse
--- NOTE | 2022-05-18 15:44 | PC.NURSE ---
INVEGA SUSTENNA 234 MG GIVEN IM IN LEFT DELTOID ORDERED BY PHYSICIAN. EDUCATED PATIENT ON MED GIVEN & PT VERBALIZED UNDERSTANDING. WILL CONT TO MONITOR INJECTION SITE FOR ANY REDNESS, SWELLING, OR IRRITATION LOT [id number] EXP 10/2023
[2022-05-18 20:54] VITALS: BP 99/65; PULSE 117; RESP 16; O2SAT 93
[2022-05-19 06:00] VITALS: RESP 16
[2022-05-19] MEDS: nicotine 4 mg lozenge MUCOUS MEM ×3 (06:52→20:12)
[2022-05-19] MEDS: citalopram 20 mg Tablet 10 MG PO (08:31)
[2022-05-19] MEDS: magnesium lactate 84 mg Tablet PO ×2 (08:32→21:26)
[2022-05-19] MEDS: potassium chloride ER 10 mEq Tablet PO (08:33)
[2022-05-19] MEDS: thiamine 100 mg Tablet PO (08:33)
[2022-05-19] MEDS: FUROsemide 40 mg Tablet PO ×2 (08:33→21:27)
[2022-05-19] MEDS: multivitamin therapeutic Tablet 1 TAB PO (08:34)
[2022-05-19] MEDS: pantoprazole DR 40 mg Tablet PO (08:34)
[2022-05-19] MEDS: spironolactone 25 mg Tablet PO (08:34)
[2022-05-19] MEDS: folic acid 1 mg Tablet PO (08:34)
--- NOTE | 2022-05-19 10:55 | W.PM.NPUPNS ---
Subjective NPU Subjective: Patient presents today reporting that he feels better after the procedure yesterday. We discussed the importance of him connecting with a provider that is in town to make sure that things stay managed. We discussed his plan to get a liver doctor in [place] but also held making sure there is some internal medicine doctor here in town that is monitoring his situation. He reported that he was feeling better since we restarted his medication and we agreed that the treatment team would get him connected with services on Saturday. Mental Status Exam MSE Comments: This is an obese white male with hospital scrubs on with limited eye contact and appearing disheveled/with poor grooming. No abnormal movements except for mild psychomotor retardation while lying in bed during the interview. Cooperative with exam in no acute distress. Speech was decreased rate and volume. Mood described as a little better, affect congruent. Thought process organized. Thought content: Patient endorsed suicidal ideation but denied homicidal ideation, there were no delusions reported or noted, he denied any auditory or visual hallucinations. Attention and concentration appeared intact and memory was mostly reliable but none were formally tested. The alert and oriented x3. Insight and judgment are limited, impulse control is improving, intellectual ability limited. Vitals/I&O/Wt Last Vital Signs Temp 99.3 F 05/18/22 14:00 Pulse 117 H 05/18/22 20:54 Resp 16 05/19/22 06:00 BP 99/65 05/18/22 20:54 Pulse Ox 93 05/18/22 20:54 O2 Del Method 05/18/22 14:00 Data NPU 05/15/22 19:25 05/16/22 09:45 A&P Assessment and plan (1) Depression with suicidal ideation: (2) Auditory hallucinations: (3) Diabetic feet: (4) Alcohol dependence, uncomplicated: (5) Alcohol use disorder, severe, dependence: (6) Schizophrenia: Qualifiers: Schizophrenia type: unspecified Qualified Code(s): F20.9 - Schizophrenia, unspecified (7) Seizure disorder: Plan 46 year old white male with reported history of traumatic brain injury, schizophrenia and alcohol dependence admitted with inability to contract for safety with reports of suicidal ideation, violent and dangerous behavior. 1. Continue current medication. We restarted Invega Sustenna 234 mg IM to the deltoid loading dose and restarted Celexa 10 mg p.o. every morning with a target max dose of 20 mg given his liver dysfunction. 2. Encourage patient in milieu/group/individual therapy 3. Continue q 15 minutes checks for safety. 4. Encourage sober living treatment outside of discharge at the highest level of care to which he is willing to commit. 5. Appreciate continued hospitalist involvement for management of pain and fluid collection and we will follow recommendations as indicated. Involuntary Hold Information 96 Hour Hold: 96 Hour Involuntary Admission: Yes 96 Hour Hold Ending Date: 05/21/22 96 Hour Hold Ending Time: 20:31 Attestations NPU Medical Necessity Statement*: And hospitalization is medically necessary and the clinically appropriate intervention at this time. We will monitor medications and make changes as indicated. Likely length of stay 2-4 days. Coding Level of Care Code Acute Oil Pump Station Operator Chief for Carlos Raygozad Diagnoses Depression with suicidal ideation F32.A; R45.851 Auditory hallucinations R44.0 Diabetic feet E11.8 Alcohol dependence, uncomplicated F10.20 Alcohol use disorder, severe, dependence F10.20 Schizophrenia F20.9 Schizophrenia type: unspecified Seizure disorder G40.909
[2022-05-19] MEDS: LORazepam 2 mg Tablet PO (12:22)
[2022-05-19 14:00] VITALS: BP 98/62; PULSE 106; RESP 18; TEMP 36.6; O2SAT 93
[2022-05-19 20:58] VITALS: BP 128/61; PULSE 95; RESP 18; TEMP 37.7; O2SAT 95
[2022-05-19] MEDS: lactulose oral liq 20 gm/30 mL UDC 30 GM PO (21:25)
[2022-05-19] MEDS: ibuprofen 800 mg tablet PO (21:29)
[2022-05-20 06:00] VITALS: BP 99/64; PULSE 83; RESP 18; TEMP 36.8; O2SAT 93; BMI 28.8
[2022-05-20] MEDS: nicotine 4 mg lozenge MUCOUS MEM ×4 (06:17→15:35)
[2022-05-20] MEDS: thiamine 100 mg Tablet PO (08:09)
[2022-05-20] MEDS: multivitamin therapeutic Tablet 1 TAB PO (08:09)
[2022-05-20] MEDS: magnesium lactate 84 mg Tablet PO ×2 (08:09→20:34)
[2022-05-20] MEDS: potassium chloride ER 10 mEq Tablet PO (08:09)
[2022-05-20] MEDS: citalopram 20 mg Tablet 10 MG PO (08:09)
[2022-05-20] MEDS: spironolactone 25 mg Tablet PO (08:10)
[2022-05-20] MEDS: pantoprazole DR 40 mg Tablet PO (08:10)
[2022-05-20] MEDS: FUROsemide 40 mg Tablet PO ×2 (08:10→20:35)
[2022-05-20] MEDS: folic acid 1 mg Tablet PO (08:10)
--- NOTE | 2022-05-20 08:11 | PC.NURSE ---
refused scheduled Lactulose this morning, pt reports several bowel movements this morning
[2022-05-20 14:00] VITALS: BP 132/87; PULSE 108; RESP 20; TEMP 36.6; O2SAT 97
--- NOTE | 2022-05-20 16:30 | P.NPUPN_ITS ---
Subjective NPU Subjective: Patient presented today reporting that he is feeling better overall. He reports that he is sore from the guided removal of his ascites on Saturday but otherwise reports he is feeling better overall since his medications have been restarted. We discussed his 96-hour hold ending tomorrow. We di scussed not planning on extending the hold and is working on appropriate referrals for discharge tomorrow. Mental Status Exam MSE Comments: This is an obese white male with hospital scrubs on with improving eye contact and adequate grooming. No abnormal movements except for mild psychomotor agitation as he returned to sitting on the floor and rocking incessantly but at a slightly slower pace. Cooperative with exam in no acute distress. Speech was more normal rate and volume. Mood described as better, affect congruent. Thought process organized. Thought content: Patient denied suicidal or homicidal ideation, there were no delusions reported or noted, he denied any auditory or visual hallucinations. Attention and concentration appeared intact and memory was mostly reliable but none were formally tested. The alert and oriented x3. Insight and judgment are limited, but improving, impulse control is improving, intellectual ability limited. Vitals/I&O/Wt Last Vital Signs Temp 97.8 F 05/20/22 14:00 Pulse 108 H 05/20/22 14:00 Resp 20 H 05/20/22 14:00 BP 132/87 05/20/22 14:00 Pulse Ox 97 05/20/22 14:00 O2 Del Method 05/19/22 14:00 Weight last 48 hrs Weight 86.183 kg Data NPU 05/15/22 19:25 05/16/22 09:45 A&P Assessment and plan (1) Depression with suicidal ideation: (2) Auditory hallucinations: (3) Diabetic feet: (4) Alcohol dependence, uncomplicated: (5) Alcohol use disorder, severe, dependence: (6) Schizophrenia: Qualifiers: Schizophrenia type: unspecified Qualified Code(s): F20.9 - Schizophrenia, unspecified (7) Seizure disorder: Plan 46 year old white male with reported history of traumatic brain injury, schizophrenia and alcohol dependence admitted with inability to contract for safety with reports of suicidal ideation, violent and dangerous behavior. 1. Continue current medication. We restarted Invega Sustenna 234 mg IM to the deltoid loading dose and restarted Celexa 10 mg p.o. every morning with a target max dose of 20 mg given his liver dysfunction. 2. Encourage patient in milieu/group/individual therapy 3. Continue q 15 minutes checks for safety. 4. Encourage sober living treatment outside of discharge at the highest level of care to which he is willing to commit. 5. Appreciate continued hospitalist involvement for management of pain and fluid collection and we will follow recommendations as indicated. 6. Tentative plan for discharge tomorrow. Involuntary Hold Information 96 Hour Hold: 96 Hour Involuntary Admission: Yes 96 Hour Hold Ending Date: 05/21/22 96 Hour Hold Ending Time: 20:31 Attestations NPU Medical Necessity Statement*: And hospitalization is medically necessary and the clinically appropriate intervention at this time. We will monitor medications and make changes as indicated. Likely length of stay 1-3 days. Coding Level of Care Code Acute Animal Care Service Worker for g Fwd Diagnoses Depression with suicidal ideation F32.A; R45.851 Auditory hallucinations R44.0 Diabetic feet E11.8 Alcohol dependence, uncomplicated F10.20 Alcohol use disorder, severe, dependence F10.20 Schizophrenia F20.9 Schizophrenia type: unspecified Seizure disorder G40.909
[2022-05-20 20:05] VITALS: BP 106/62; PULSE 111; RESP 17; TEMP 36.4; O2SAT 87
[2022-05-21 06:00] VITALS: BP 100/60; PULSE 94; RESP 17; TEMP 37.3; O2SAT 90
[2022-05-21] MEDS: nicotine 4 mg lozenge MUCOUS MEM ×3 (06:27→10:45)
--- NOTE | 2022-05-21 08:10 | PC.NURSE ---
REFUSED SCHEDULED LACTULOSE
[2022-05-21] MEDS: FUROsemide 40 mg Tablet PO (08:12)
[2022-05-21] MEDS: multivitamin therapeutic Tablet 1 TAB PO (08:12)
[2022-05-21] MEDS: pantoprazole DR 40 mg Tablet PO (08:12)
[2022-05-21] MEDS: folic acid 1 mg Tablet PO (08:12)
[2022-05-21] MEDS: potassium chloride ER 10 mEq Tablet PO (08:12)
[2022-05-21] MEDS: citalopram 20 mg Tablet 10 MG PO (08:12)
[2022-05-21] MEDS: magnesium lactate 84 mg Tablet PO (08:12)
[2022-05-21] MEDS: spironolactone 25 mg Tablet PO (08:14)
[2022-05-21] MEDS: thiamine 100 mg Tablet PO (08:14)
[2022-05-21 11:37] VITALS: BP 100/60; PULSE 94; RESP 17; TEMP 37.3; O2SAT 90
--- NOTE | 2022-05-21 11:59 | W.PM.NPUDCS ---
Diagnoses at Discharge Discharge Diagnosis (1) Depression with suicidal ideation: Status: Resolved (2) Auditory hallucinations: Status: Resolved (3) Diabetic feet: Status: Acute (4) Alcohol dependence, uncomplicated: Status: Acute (5) Alcohol use disorder, severe, dependence: Status: Resolved (6) Schizophrenia: Status: Chronic Qualifiers: Schizophrenia type: unspecified Qualified Code(s): F20.9 - Schizophrenia, unspecified (7) Seizure disorder: Status: Resolved Reason for Visit Reason for Visit: SI Brief History: History of Present Illness Reinaldo Flores is a 46 year old male who presented to the emergency department with the following report: Chief Complaint: Psychiatric Symptoms Stated Complaint: SI Time Seen by Provider: 05/15/22 19:10 Source: EMS Mode of arrival: EMS Limitations: no limitations History of Present Illness:?? 46-year-old male who states he has been hearing voices since yesterday he has a history of cirrhosis is an alcoholic he states that he has heard voices throughout the night's been telling to kill himself he states he does have a plan to shoot himself he denies any worsening improving factors.? He is talking a third person currently Associated symptoms: Reports auditory hallucinations, depression and suicidal ideation. He was admitted to the neuropsychiatric unit for definitive treatment of those issues.? He presents today reporting that he does not have any current medications because he and [facility] had an issue because they were going to require him to be a walk-in and he cannot be around that many people for that long so his medication ended which included an Invega injection.? He reports that he has had significant allergies but he cannot remember them all in his chart lists Clozaril Depakote and Haldol.? He reports that after being off of his Invega shot for the past 2 months things started spiraling out of control.? He presented to the emergency department and was placed on a 96-hour hold with reports of suicidal intent.? Which he continues to endorse.? We discussed the risks benefits and alternatives of restarting his Invega as well as restarting his Celexa.? He reports having cirrhosis of the liver and cutting down significantly on his drinking but he does endorse continuing to drink.? He reports he had his abdomen drained as recently as Saturday.? He reports that it was recommended that he come to the hospital because he was having blackouts and then having dangerous behavior during those times.? He reports being hospitalized psychiatrically possibly 50 times in the past.? He smokes about 2 packs of cigarettes a day, reports he drinks whiskey mixed with sweet tea daily.? There is a gun in the home and he had in fact reportedly shot 1 off prior to coming to the hospital. Per his 12/17/2021 [facility] inpatient psychiatric evaluation: History of Present Illness Reinaldo Flores is a 46 year old male with a history of Schizophrenia and Alcohol Dependence admitted on 96 hour hold as he had reported that he made a decision to discuss his dream with someone and it was blown out of proportion.? He reports that he was unable to leave the emergency department because he would not contract for safety and give up his guns.? Reinaldo reports that his was scared about something he said and it was reported in [facility] that Reinaldo had reported thoughts to blow his head off with a gun.? He reports significant alcohol use for all my life. and reports drinking a 1/2 gallon of alcohol daily for several years.? He reports past history of schizophrenia and reports that the voices have been controlled by his medication and reports that he has had violent thoughts to hurt others in the past. ? He endorsed a history of alcohol withdrawal symptoms, include seizures, blackouts and shakes. Past Psychiatric History: Is notable for multiple inpatient psychiatric hospitalizations.? He reports last being admitted at [facility] in [facility] for inpatient he reports history of alcohol dependence, schizophrenia and? traumatic brain injury.? He was last seen at his outpatient appointment 3 days ago at [facility] in [facility]Followed by Dr. Bustamante in [facility]. Hx of multiple psychiatric medication trials: zyprexa, valium, campral, naltrexone, Current medications: invega sustenna IM, Substance abuse hx: reports misuse of stimulants in the past but reports active use of alcohol for over 20 years with longest period of abstinence was 1 year. 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 Hospital Course Hospital Course He slowly acclimated to the individual, group and milieu therapies provided. We restarted his medications but decreased Celexa to 10 mg p.o. daily secondary to his liver dysfunction. He received the initial and second loading dose of Invega Sustenna. He showed marked improvement during the hospitalization and was able to contract for safety outside of the hospital prior to discharge. During the hospitalization, patient had routine laboratory studies which were within normal limits except for few outliers. Any concerning labs were addressed by the hospitalist. Additionally there was a general medical evaluation which was also within normal limits and revealed no new acute processes, however his recent worsening liver disease with ascites was followed and managed at 1 point with a draining. Referral to outpatient resources to have consistent management of his liver disease was also done. Discharge summary: At the time of discharge, lethality was denied and psychosis was resolving. Mood and anxiety were well managed. Patient endorsed a plan to avoid all drugs of abuse and follow-up with the aftercare recommendations of the treatment team. Patient was evaluated and deemed to be absent credible lethality, and had achieved the maximum benefit from an inpatient hospitalization, so was discharged. Involuntary Hold Information 96 Hour Hold: 96 Hour Involuntary Admission: Yes 96 Hour Hold Ending Date: 05/21/22 96 Hour Hold Ending Time: 20:31 Mental Status Exam MSE Comments: This is an obese white male with hospital scrubs on with improving eye contact and adequate grooming. No abnormal movements except for mild psychomotor agitation as he returned to sitting on the floor and rocking incessantly but at a slightly slower pace. Cooperative with exam in no acute distress. Speech was more normal rate and volume. Mood described as better, affect congruent. Thought process organized. Thought content: Patient denied suicidal or homicidal ideation, there were no delusions reported or noted, he denied any auditory or visual hallucinations. Attention and concentration appeared intact and memory was mostly reliable but none were formally tested. The alert and oriented x3. Insight and judgment are limited, but improving, impulse control is improving, intellectual ability limited. Discharge Data Studies Completed and Pending: Completed Studies During Hospitalization Category Date Time Status US paracentesis a bdomen [[place]ac[place]esis [place]d w [id number]] Ultrasound 05/18/22 09:21 Completed Routine Pending at discharge Category Date Time Status Anaerobic Culture Routine Lab 05/18/22 09:22 Ordered Body Fluid Analys is Routine Lab 05/18/22 09:22 Ordered Body Fluid Cultur e & GS Routine Lab 05/18/22 09:22 Ordered Cyto Order Verifi cation Routine Lab 05/18/22 09:22 Ordered Radiology Impressions Paracentesis Ultrasound 05/18/22 09:21 IMPRESSION: Uncomplicated paracentesis yielding 3600 ml of peritoneal fluid. Laboratory Results WBC 9.6 10^3/uL (4.0- 10.0) 05/15/22 19:25 RBC 4.77 10^6/uL (4.1 -5.3) 05/15/22 19:25 Hgb 16.6 g/dL (11.7-1 6.6) 05/15/22 19:25 Hct 48.6 % (42.0-52.0 ) 05/15/22 19:25 MCV 101.9 fl (80-94) H 05/15/22 19:25 MCH 34.8 pg (28.0-34. 0) H 05/15/22 19:25 MCHC 34.2 g/dL (30.0-3 6.0) 05/15/22 19:25 RDW 11.8 % (12.1-15.1 ) L 05/15/22 19:25 Plt Count 204 10^3/cmm (130 -400) 05/15/22 19:25 MPV 10.7 fL (7.4-10.4 ) H 05/15/22 19:25 Neut % (Auto) 73.6 % 05/15/22 19:25 Lymph % (Auto) 12.5 % 05/15/22 19:25 [place] % (Auto) 9.3 % 05/15/22:25 Eos % (Auto) 3.4 % 05/15/22:25 Baso % (Auto) 0.9 % 05/15/22:25 Neut # (Auto) 7.05 10^3/uL (1.8 -7.7) 05/15/22 19:25 Lymph # (Auto) 1.2 10^3/uL (0.8- 4.8) 12/06/22 19:25 [place] # (Auto) 0.9 10^3/uL (0.2- 0.9) 05/15/22 19:25 Eos # (Auto) 0.3 10^3/uL (0.0- 0.8) 05/15/22 19:25 Baso # (Auto) 0.1 10^3/uL (0.0- 0.1) 05/15/22 19:25 Nucleated RBC % (a uto) 0 % 05/15/22 19:25 Nucleated RBCs # 0.0 /100WBC 05/15/22 19:25 Sodium 135 mmol/L (136-1 45) L 05/16/22 09:45 Potassium 3.9 mmol/L (3.5-5 .1) 05/16/22 09:45 Chloride 100 mmol/L (98-10 7) 05/16/22 09:45 Carbon Dioxide 25 mmol/L (22-29) 05/16/22 09:45 Anion Gap 13.9 (5-19) 05/16/22 09:45 BUN 6 mg/dL (6-20) 05/16/22 09:45 Creatinine 0.4 mg/dL (0.7-1. 2) L 05/16/22 09:45 GFR Calculation 229.6 mL/min (90- 130) H 05/16/22 09:45 Glucose 97 mg/dL (65-115) 05/16/22 09:45 POC Glucose 113 mg/dL (70-110 ) H 05/17/22 12:09 Calculated Osmolal ity 278 mOsm/kg (285- 295) L 05/16/22 09:45 Calcium 8.6 mg/dL (8.5-10 .5) 05/16/22 09:45 Total Bilirubin 1.4 mg/dL (0.15-1 .2) H 05/16/22 09:45 AST 47 U/L (0-40) H 05/16/22 09:45 ALT 13 U/L (0-41) 05/16/22 09:45 Alkaline Phosphata se 85 U/L (40-130) 05/16/22 09:45 Ammonia 87 umol/L (16-60) H 05/15/22 19:25 Total Protein 6.6 g/dL (6.6-8.7 ) 05/16/22 09:45 Albumin 2.1 g/dL (3.5-5.2 ) L 05/16/22 09:45 Globulin 4.5 g/dL (1.3-4.6 ) 05/16/22 09:45 Salicylates < 0.3 mg/dL (3-10 ) L 05/15/22 19:25 Urine Opiates Scre en Negative ng/mL (N egative) 05/15/22 20:10 Acetaminophen < 5.0 ug/mL (10-3 0) L 05/15/22 19:25 Ur Barbiturates Sc reen Negative ng/mL (N egative) 05/15/22 20:10 Ur Phencyclidine S crn Negative ng/mL (N egative) 05/15/22 20:10 Ur Amphetamines Sc reen Negative ng/mL (N egative) 05/15/22 20:10 U Benzodiazepines Scrn Negative ng/mL (N egative) 05/15/22 20:10 Urine Cocaine Scre en Negative ng/mL (N egative) 05/15/22 20:10 U Marijuana (THC) Screen Negative ng/mL (N egative) 05/15/22 20:10 Ethyl Alcohol 107 mg/dL (0-10) H 05/15/22 19:25 Vitals: Last Vital Signs Temp 99.2 F 05/21/22 11:37 Pulse 94 05/21/22 11:37 Resp 17 05/21/22 11:37 BP 100/60 05/21/22 11:37 Pulse Ox 90 05/21/22 11:37 O2 Del Method 05/21/22 06:00 Discharge Plan Discharge Patient Disposition: Home Condition: Stable Prescriptions: New lactulose 20 gram/30 mL Solution 30 g PO TID 30 Days Qty: 4050 1RF thiamine mononitrate (vit B1) [Vitamin B-1 (mononitrate)] 100 mg Tablet 100 mg PO DAILY 30 Days Qty: 30 1RF Invega Sustenna 234 mg/1.5 mL syringe 234 mg IM Q30D Qty: 1.5 1RF Rx Instructions: Next dose 06/22/2022 Continued folic acid 1 mg Tablet 1 mg PO DAILY 30 Days Qty: 30 1RF potassium chloride 10 mEq tablet extended release 10 meq PO DAILY pantoprazole 40 mg Tablet,Delayed Release (Dr/Ec) 40 mg PO DAILY Qty: 30 0RF No Action citalopram 40 mg tablet 40 mg PO DAILY Discharge Orders: Discharge Order (Routine); Ordered 05/21/22 Ordered By: Samuel Torres Other Ambulatory Orders: US paracentesis abd w [id number] (Routine) Timeframe: 1 Week Facility: [facility] - Location: Radiology Ordered By: Brandon Howard Referrals: Franchesca Escalante PMHNP [Staff Physician] - 05/25/22 11:45 am Jewell Hugo FNP-C [Primary Care Provider] - 06/05/22 9:00 am (Jewell Hugo is not able to drain fluid from the stomach and we where told to have you go to the Emergency Room to have fluid drained.) Discharge Diet: Regular Discharge Activity: Resume usual activity Patient Instructions: Lactulose (By mouth), Citalopram (By mouth), Rifaximin (By mouth) (Xifaxan), Paliperidone (By injection), Schizophrenia (DC), Suicide Prevention (DC), Opioid Safety Activity Restrictions/Additional Instructions: Please arrange referral to GI for cirrhosis, recurrent ascites Discharge Attestations NPU Time Spent in Discharge Care*: greater than 30 min Specific Discharge Activities: Specific discharge activities: educating patient, discussing with case making machine operator/social workers/dc planners, documenting/other paperwork and evaluating patient/reviewing data Status at Discharge: Cognitive status at discharge: cognitively intact, Behavioral status at discharge: cooperative, Coding Level of Care Code Acute Chg FW DC note Diagnoses Depression with suicidal ideation F32.A; R45.851 Auditory hallucinations R44.0 Diabetic feet E11.8 Alcohol dependence, uncomplicated F10.20 Alcohol use disorder, severe, dependence F10.20 Schizophrenia F20.9 Schizophrenia type: unspecified Seizure disorder G40.909
[2022-05-21 12:12] VITALS: BP 100/60; PULSE 94; RESP 17; TEMP 37.3; O2SAT 90
--- NOTE | 2022-05-21 12:26 | DCPLANNER ---
IMM completed on 05/21/22 @ 3211. Pt was given a copy of rights and he stated he understood his rights.
[2022-05-21] MEDS: paliperidone palmitate 156 mg Syringe IM (12:37)
--- NOTE | 2022-05-21 12:38 | PC.NURSE ---
INVGERMAINE SUSTENNA 156 MG GIVEN IM ORDERED BY PHYSICIAN, INJECTION GIVEN IN RIGHT DELTOID WILL CONT TO MONITOR INJECTION SITE FOR ANY REDNESS, SWELLING, OR IRRITATION LOT [id number] EXP 08/2023
--- NOTE | 2022-05-21 13:47 | W.PM.EVENTAC ---
Event Note Event Note: Called with concerns patient may need outpatient therapeutic paracentesis. Order written for this weekly, basically as needed with radiology. I did this based on his progress notes, coverage for hospitalist that saw him earlier in the week. We will also arrange outpatient GI referral.
== END 2022-05-21 14:04 | disposition home or self-care (01) | DRG 885 ==
LOC: ER 19:37 → NP 20:54
PROVIDERS: Internal Medicine; Admitting Provider Psychiatry & Neurology Psychiatry; Emergency Provider Emergency Medicine; PCP Nurse Practitioner Family; Visit Provider Psychiatry & Neurology Psychiatry
DX: F20.9 Schizophrenia, unspecified (principal); R45.851 Suicidal ideations; K70.31 Alcoholic cirrhosis of liver with ascites; F32.A Depression, unspecified; R45.850 Homicidal ideations; F10.20 Alcohol dependence, uncomplicated; Y90.5 Blood alcohol level of 100-119 mg/100 ml; R45.6 Violent behavior; F17.210 Nicotine dependence, cigarettes, uncomplicated; I10 Essential (primary) hypertension; I25.10 Atherosclerotic heart disease of native coronary artery without angina pectoris; E11.65 Type 2 diabetes mellitus with hyperglycemia; G40.909 Epilepsy, unspecified, not intractable, without status epilepticus; Z87.820 Personal history of traumatic brain injury
CPT/HCPCS: 36416; 49083; 80053; 80306; 80307; 82140; 82962; 85025; 85610; 85730; 93005; 96372; 96374; 97165; 99285; J2270; J2550; Q0162

== ENCOUNTER 2022-05-27 18:55 | Emergency (ER) | payer MEDICARE, MEDICAID, SELFPAY ==
--- NOTE | 2022-05-27 18:58 | W.ED.PSYCHS ---
HPI - Psych General: Chief Complaint: Psychiatric Symptoms Stated Complaint: ABD PAIN; PSYCH EVAL Time Seen by Provider: 05/27/22 18:58 History of Present Illness: Mr. Flores is a 46-year-old gentleman with history of end-stage liver disease secondary to alcoholic liver cirrhosis, ascites, TBI, diabetes, schizophrenia presenting to the emergency department for various concerns. He reports increased abdominal discomfort, last paracentesis improved discomfort and is due for another one tomorrow. Additionally he makes vague statements that he wants to run out into a train or would use a gun but the gun has been locked up. The patient appears at times to refer to various personalities and individuals of himself. History is somewhat vague. Denies infectious symptoms. Intensity symptoms is moderate and worse with palpation and movement. No other specific changes in health, exacerbating, or alleviating factors identified. Onset (ago): day(s) History of same: Yes Relieving factors: none Exacerbating factors: medication and therapy Context: recent alcohol abuse Review of Systems General: Reports: 10 or more systems reviewed and unremarkable except in HPI and below PFSH ED PFSH: Medical History Acne rosacea ALC (alcoholic liver cirrhosis) Alcohol dependence, uncomplicated Bipolar disorder Cerebrovascular accident (CVA) Controlled diabetes mellitus with hyperglycemia Current smoker DM neuropathy, painful Essential (primary) hypertension History of alcohol abuse daily use of hard liquor History of coronary artery disease History of CVA (cerebrovascular accident) 2009 Right side weakness due to a bleed History of memory loss History of schizophrenia Mixed hyperlipidemia Nicotine dependence, cigarettes, uncomplicated Psoriasis Psychiatric care Seizure disorder Surgical History History of colonoscopy with polypectomy 2016 History of esophagogastroduodenoscopy (EGD) History of eye surgery History of heart artery stent Family History Other Dementia Diabetes Hypertension Lung disease Psychiatric illness Stroke Denies family history of Chronic kidney disease (CKD) Anesthesia complication Bleeding disorder Cancer Social History Smoking and tobacco status: current every day smoker cigarettes Packs smoked per day: 2.5 Years cigarettes smoked: 38 Second hand smoke exposure: Yes Smoking risk assessment/counseling performed?: Yes Alcohol intake: current Alcohol intake frequency: 0-2 Drinks per Day Alcohol type: hard liquor Desire information about alcohol rehabilitation?: No Counseling given: No Desire information about substance/drug rehabilitation?: No Counseling given: No Adopted: No Caregiver/support person: Yes Lives independently: No Household members: friend(s) and caregiver Housing: Manufactured/Mobile home Marital status: Number of children: 8 service: No Current occupational status: disabled Pets and animals: Yes History of recent travel: Yes Details: month an a half ago Out of state: Yes Current gender identity: Male Physical Exam Const: COMMON NORMALS: alert GENERAL APPEARANCE: cooperative and well developed HENMT: COMMON NORMALS: normocephalic and atraumatic HEAD & SCALP: normocephalic and atraumatic Eye: COMMON NORMALS: conjunctivae normal CONJUNCTIVA: Yes conjunctivae normal SCLERA: sclerae normal Neck/C-Spine: COMMON NORMALS: supple GENERAL: Yes trachea midline Resp: COMMON NORMALS: clear to auscultation bilaterally EFFORT & INSPECTION: Yes able to speak in complete sentences AUSCULTATION: clear to auscultation bilaterally Cardio: COMMON NORMALS: regular rate and regular rhythm RATE: regular rate RHYTHM: regular rhythm GI: COMMON NORMALS: Soft to palpation PALPATION: Yes Soft to palpation, Yes Tenderness to palpation present (GI), No Guarding due to palpation present (GI), No Rigid due to palpation and Yes Ascites present PERCUSSION: normal to percussion Extremity: GENERAL: Yes normal exam except as noted and No edema Neuro: COMMON NORMALS: moves all extremities SENSORIUM/ORIENTATION: Yes alert and No Orientation impaired Psych: COMMON NORMALS: mental status grossly normal and Normal thought process present THOUGHT PROCESS: Normal thought process present Course Vital Signs: Vital signs: Vital Signs Temperature 97.9 F 05/27/22 18:59 Pulse Rate 105 H 05/27/22 18:59 Respiratory Rate 19 H 05/27/22 18:59 Blood Pressure 116/74 05/27/22 18:59 Pulse Oximetry 93 05/27/22 18:59 Oxygen Delivery Me thod 05/27/22 18:59 MDM - Psych Medical Decision Making 46-year-old gentleman presenting with abdominal pain and associated psychiatric symptoms. Exam as above. The patient seems to be having multiple personalities which he references however at times he missed references or seems to forget which personality he is talking about. He is nontoxic in appearance. Labs with no leukocytosis, normal hemoglobin and platelet count. INR similar to baseline. Metabolic panel similar to baseline. No evidence of urinary tract infection. Toxic ingestions notable for elevated ethyl alcohol, UDS negative. Given physical exam and clinical history I do believe that the patient requires imaging at this time. His abdominal discomfort is likely secondary to accumulation of ascites which is a known issue with the patient and he has paracentesis scheduled for tomorrow. Patient was assessed by psychiatry service who present for continued outpatient management is appropriate. I agree with his assessment and in review of prior notes and discussion with patient I do not believe that he benefit from inpatient management at this time. Discussed with family need to secure any weapons at home which they are comfortable with. The results of ED evaluation were discussed with the patient including prescriptions and/or symptomatic cares (if applicable) including appropriate and responsible use, followup plan, and return precautions. The patient verbalized understanding and felt safe for discharge. Medical Records I reviewed the patient's medical records. Lab Data I reviewed the patient's lab results. 05/27/22 20:05/27/22: Laboratory Results WBC 8.8 10^3/uL (4.0-10.0) 05/27/22: RBC 4.46 10^6/uL (4.1-5.3) 05/27/22 20: Hgb 15.3 g/dL (11.7-16.6) 05/27/22: Hct 44.8 % (42.0-52.0) 05/27/22: MCV 100.4 fl (80-94) H 05/27/22 20: MCH 34.3 pg (28.0-34.0) H 05/27/22: MCHC 34.2 g/dL (30.0-36.0) 05/27/22: RDW 11.6 % (12.1-15.1) L 05/27/22 20: Plt Count 160 10^3/cmm (130-400) 05/27/22 20: MPV 10.3 fL (7.4-10.4) 05/27/22: Neut % (Auto) 70.4 % 05/27/22 20: Lymph % (Auto) 17.7 % 05/27/22 20: [place] % (Auto) 8.3 % 05/27/22: Eos % (Auto) 2.7 % 05/27/22 20: Baso % (Auto) 0.6 % 05/27/22: Neut # (Auto) 6.18 10^3/uL (1.8-7.7) 05/27/22: Lymph # (Auto) 1.6 10^3/uL (0.8-4.8) 05/27/22: [place]ickman # (Auto) 0.7 10^3/uL (0.2-0.9) 05/27/22: Eos # (Auto) 0.2 10^3/uL (0.0-0.8) 05/27/22: Baso # (Auto) 0.1 10^3/uL (0.0-0.1) 05/27/22 Nucleated RBC % (auto) 0 % 05/27/22 Nucleated RBCs # 0.0 /100WBC 05/27/22: PT 17.00 SECONDS (12.1-14.9) H 05/27/22: INR 1.35 (0.8-1.2) H 05/27/22 20: Sodium 132 mmol/L (136-145) L 05/27/22: Potassium 3.9 mmol/L (3.5-5.1) 05/27/22: Chloride 99 mmol/L (98-107) 05/27/22: Carbon Dioxide 23 mmol/L (22-29) 05/27/22 20: Anion Gap 13.9 (5-19) 05/27/22: BUN 4 mg/dL (6-20) L 05/27/22: Creatinine 0.5 mg/dL (0.7-1.2) L 05/27/22 20: GFR Calculation 177.5 mL/min (90-130) H 05/27/22: Glucose 119 mg/dL (65-115) H 05/27/22: Calculated Osmolality 272 mOsm/kg (285-295) L 05/27/22 20: Calcium 8.2 mg/dL (8.5-10.5) L 05/27/22 20: Total Bilirubin 0.8 mg/dL (0.15-1.2) 05/27/22 20: AST 58 U/L (0-40) H 05/27/22 20: ALT 25 U/L (0-41) 05/27/22 20: Alkaline Phosphatase 92 U/L (40-130) 05/27/22 20: Ammonia 48 umol/L (16-60) 05/27/22 21:38 Total Protein 6.5 g/dL (6.6-8.7) L 05/27/22 20: Albumin 2.3 g/dL (3.5-5.2) L 05/27/22 20: Globulin 4.2 g/dL (1.3-4.6) 05/27/22 20: TSH 2.14 uIU/mL (0.27-4.20) 05/27/22 20: Urine Color Yellow (Yellow) 05/27/22 21:32 Urine Appearance Clear (CLEAR) 05/27/22 21:32 Urine pH 5 (5-7) 05/27/22 21:32 Ur Specific [place] 1.025 (1.005-1.030) 05/27/22 21:32 Urine Protein Neg (Negative) 05/27/22 21:32 Urine Glucose (UA) Norm (Normal) 05/27/22 21:32 Urine Ketones 1+ (Negative) H 05/27/22 21:32 Urine Blood Neg (Negative) 05/27/22 21: Urine Nitrate Negative (Negative) 05/27/22 21:32 Urine Bilirubin 1+ (Negative) H 05/27/22 21:32 Urine Urobilinogen 8 mg/dL (Negative) H 05/27/22 21:32 Ur Leukocyte Esterase Not Reportable 05/27/22 21:32 Salicylates 2.3 mg/dL (3-10) L 05/27/22 20: Urine Opiates Screen Negative ng/mL (Negative) 05/27/22 21: Acetaminophen < 5.0 ug/mL (10-30) L 05/27/22 20:27 Ur Barbiturates Screen Negative ng/mL (Negative) 05/27/22 21:32 Ur Phencyclidine Scrn Negative ng/mL (Negative) 05/27/22 21:32 Ur Amphetamines Screen Negative ng/mL (Negative) 05/27/22 21:32 U Benzodiazepines Scrn Negative ng/mL (Negative) 05/27/22 21:32 Urine Cocaine Screen Negative ng/mL (Negative) 05/27/22 21:32 U Marijuana (THC) Screen Negative ng/mL (Negative) 05/27/22 21:32 Ethyl Alcohol 109 mg/dL (0-10) H 05/27/22 20:27 Discharge Plan Discharge Patient Disposition: Home Clinical Impression: Ascites, ALC (alcoholic liver cirrhosis), Alcohol abuse Condition: Stable Prescriptions: No Action folic acid 1 mg Tablet 1 mg PO DAILY 30 Days Qty: 30 1RF pantoprazole 40 mg Tablet,Delayed Release (Dr/Ec) 40 mg PO DAILY Qty: 30 0RF citalopram 20 mg tablet 20 mg PO DAILY spironolactone 25 mg tablet 25 mg PO BID Magtab 84 mg tablet extended release 84 mg PO BID lactulose 20 gram/30 mL Solution 30 g PO TID 30 Days Qty: 4050 1RF thiamine mononitrate (vit B1) [Vitamin B-1 (mononitrate)] 100 mg Tablet 100 mg PO DAILY 30 Days Qty: 30 1RF Invega Sustenna 234 mg/1.5 mL syringe 234 mg IM Q30D Qty: 1.5 1RF Rx Instructions: Next dose 06/22/2022 lorazepam [Ativan] 1 mg tablet 1 mg PO Q8H PRN (Reason: alcohol withdrawal) Qty: 10 0RF Rx Instructions: take 3 times a day for the next 3 days- do not drink alcohol with this medication Discharge Orders: Discharge ED (Routine); Ordered 05/27/22 Ordered By: Saulo Patterson Referrals: Jewell Hugo FNP-C [Primary Care Provider] - Discharge Diet: As Directed Discharge Activity: Limit activity as instructed Patient Instructions: Cirrhosis of the Liver (ED), Abuse of Alcohol (ED), Ascites (ED) Activity Restrictions/Additional Instructions: Thank you for visiting the emergency department. You were seen and evaluated for abdominal discomfort. The most likely cause of your abdominal discomfort is related to ascites which is due to your liver disease. Liver disease continues to be worsened by your abuse of alcohol. I recommend stopping alcohol use, failure to stop using alcohol will likely lead to or worse. Given exam, vital signs, laboratory studies I believe that it is appropriate for you to return for your outpatient scheduled paracentesis in the morning. Please ensure that you make this appointment. Please also follow-up with your psychiatric care provider and primary care provider. Return to the emergency department for anything that you are concerned about and feel needs emergency department evaluation. 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
[2022-05-27 18:59] VITALS: BP 116/74; PULSE 105; RESP 19; TEMP 36.6; O2SAT 93; BMI 34.9
[2022-05-27 20:36] LABS: Basophils # 0.1 10^3/uL (0.0-0.1); Basophils % 0.6 %; Eosinophils # 0.2 10^3/uL (0.0-0.8); Eosinophils % 2.7 %; Hematocrit 44.8 % (42.0-52.0); Hemoglobin 15.3 g/dL (11.7-16.6); Lymphocytes # 1.6 10^3/uL (0.8-4.8); Lymphocytes % 17.7 %; Mean Corpuscular HGB Conc 34.2 g/dL (30.0-36.0); Mean Corpuscular Hemoglobin 34.3 pg (28.0-34.0); Mean Corpuscular Volume 100.4 fl (80-94); Mean Platelet Volume 10.3 fL (7.4-10.4); Monocytes # 0.7 10^3/uL (0.2-0.9); Monocytes % 8.3 %; Neutrophils # 6.18 10^3/uL (1.8-7.7); Neutrophils % 70.4 %; Nucleated Red Blood Cells % 0 %; Platelet Count 160 10^3/cmm (130-400); Red Blood Count 4.46 10^6/uL (4.1-5.3); Red Cell Distribution Width 11.6 % (12.1-15.1); White Blood Count 8.8 10^3/uL (4.0-10.0)
[2022-05-27 20:52] LABS: INR 1.35 (0.8-1.2)
[2022-05-27 21:13] LABS: Acetaminophen < 5.0 ug/mL (10-30); Alanine Aminotransferase 25 U/L (0-41); Albumin Level 2.3 g/dL (3.5-5.2); Alcohol Level 109 mg/dL (0-10); Alkaline Phosphatase 92 U/L (40-130); Anion Gap 13.9 (5-19); Aspartate Amino Transferase 58 U/L (0-40); Blood Urea Nitrogen 4 mg/dL (6-20); Calcium 8.2 mg/dL (8.5-10.5); Carbon Dioxide 23 mmol/L (22-29); Chloride 99 mmol/L (98-107); Globulin 4.2 g/dL (1.3-4.6); Glomerular Filtration Rate 177.5 mL/min (90-130); Glucose 119 mg/dL (65-115); Osmolality Calculated 272 mOsm/kg (285-295); Potassium 3.9 mmol/L (3.5-5.1); Salicylate 2.3 mg/dL (3-10); Sodium 132 mmol/L (136-145); Thyroid Stimulating Hormone 2.14 uIU/mL (0.27-4.20); Total Bilirubin 0.8 mg/dL (0.15-1.2); Total Protein 6.5 g/dL (6.6-8.7)
[2022-05-27 21:39] LABS: Add Urine Microscopic? NO; Charge for UA Resulting for Rev
[2022-05-27 21:44] LABS: Protein Urine Neg (Negative); Specific Gravity, Urine 1.025 (1.005-1.030); Urine Appearance Clear (CLEAR); Urine Color Yellow (Yellow); pH Urine 5 (5-7)
[2022-05-27 21:45] LABS: Bilirubin Urine 1+ (Negative); Blood Urine Neg (Negative); Glucose Urine UA Norm (Normal); Ketones Urine 1+ (Negative); Nitrate Urine Negative (Negative); Urobilinogen Urine 8 mg/dL (Negative)
[2022-05-27 21:52] LABS: Amphetamines Screen Urine Negative (Negative); Barbiturates Screen Urine Negative (Negative); Benzodiazepines Screen Urine Negative (Negative); Opiate Screen Urine Negative (Negative)
[2022-05-27 22:01] LABS: Ammonia 48 umol/L (16-60)
[2022-05-27 22:16] LABS: Cocaine Screen Urine Negative (Negative); PCP Screen Urine Negative (Negative); THC Screen Urine Negative (Negative)
== END 2022-05-28 00:21 | disposition home or self-care (01) ==
PROVIDERS: Emergency Provider Emergency Medicine; PCP Nurse Practitioner Family
DX: K70.31 Alcoholic cirrhosis of liver with ascites (principal); F10.20 Alcohol dependence, uncomplicated; Y90.5 Blood alcohol level of 100-119 mg/100 ml
CPT/HCPCS: 49083; 80053; 80306; 80307; 81003; 82140; 84443; 85025; 85610; 99283

== ENCOUNTER 2022-05-28 11:05 | Day surgery (SDC) | payer MEDICARE, MEDICAID, SELFPAY ==
[2022-05-24 10:19] VITALS: BMI 31.9
[2022-05-28 11:15] VITALS: BP 134/98; PULSE 110; RESP 22; TEMP 36.8; O2SAT 95
--- NOTE | 2022-05-28 11:24 | US_ITS ---
WS: [id number] ULTRASOUND-GUIDED PARACENTESIS CLINICAL INFORMATION: ascities COMPARISON: None. Procedure Informed consent: The risks, benefits, and alternatives of the procedure were discussed with the juan antonio ent. Verbal and written consent was obtained. Timeout: A timeout was performed to confirm the correct patient, procedure, and site. Preparation: A suitable skin site was identified. The patient was prepped and draped in usual sterile fashion. Lidocaine 1% was used for local anesthesia. Catheter: 4 Turkmen One-step Yueh catheter. Side: RIGHT Lower quadrant. Fluid Volume: 6000 ml Color: Clear yellow DISPOSITION: Discarded safely. Complications: None. Patient disposition: Discharged from the department in stable condition. US/US paracentesis abd w [id number] IMPRESSION: Uncomplicated ultrasound-guided paracentesis. Removal of 6000 cc
[2022-05-28 12:35] VITALS: BP 128/84; PULSE 97; RESP 20; O2SAT 94
== END 2022-05-28 12:38 | disposition home or self-care (01) ==
LOC: GILAB 11:06
PROVIDERS: Radiology Neuroradiology; PCP Nurse Practitioner Family; Visit Provider Internal Medicine
PROC: (CPT 49082; principal; 2022-05-28 12:00)
DX: R18.8 Other ascites (principal)
CPT/HCPCS: 49083

== ENCOUNTER 2022-06-05 11:05 | Emergency (ER) | payer MEDICARE, MEDICAID, SELFPAY ==
[2022-06-05] VITALS (15 sets, daily range): BP systolic 91–119; BP diastolic 63–80; PULSE 100–110; RESP 20; O2SAT 92–96
--- NOTE | 2022-06-05 11:22 | ECG_ITS ---
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 Measurements Intervals [place] Rate: 108 P: 17 [place]: 136 QRS: -26 QRSD: 105 T: 10 QT: 345 QTc: 464 Interpretive Statements SINUS TACHYCARDIA ANTEROSEPTAL MYOCARDIAL INFARCTION , OF INDETERMINATE AGE [40+ ms Q WAVE IN V1-V4] Compared to ECG 05/15/2022 19:22:36 No significant changes Electronically Signed On 06-05-2022 16:16:09 TUBE SIZER OPERATOR by Skip Abdul M.D. [email or web address]
--- NOTE | 2022-06-05 11:53 | CT_ITS ---
WS: [id number] CT HEAD TECHNIQUE: Noncontrast CT of the head obtained from the skullbase to the vertex. CLINICAL INFORMATION: syncope head injury seizur COMPARISON: December 27, 2021 DLP: 1051.[address] scans at [facility] use at least one of these dose optimization techniques: automated e xposure control; mA and/or kV adjustment per patient size (includes targeted exams where dose is matc hed to clinical indication); or iterative reconstruction. FINDINGS: No evidence of intracranial hemorrhage or mass effect. Ventricular system and basal cisterns are power nt. Mild small vessel changes with moderate parenchymal volume loss. No extra-axial fluid collections . No evidence of mass or mass effect. Paranasal sinuses and mastoid air cells are well aerated. .Normal visualized soft tissues. CT/CT head wo con* [id number] IMPRESSION: 1. No evidence of intracranial hemorrhage or mass effect. 2. Mild small vessel changes. Moderate parenchymal volume loss. 3. No acute intracranial findings.
--- NOTE | 2022-06-05 11:53 | XRR_ITS ---
PROCEDURE INFORMATION: Exam: XR Chest Exam date and time: 06/05/2022 12:12 PM Age: 46 years old Clinical indication: Shortness of breath; Additional info: Syncope TECHNIQUE: Imaging protocol: Radiologic exam of the chest. Views: 1 view. COMPARISON: CR (CHEST, ) 04/27/2022 8:01 PM FINDINGS: Lungs: Lung volumes are markedly decreased progressed from earlier study on likely in part secondary to body habitus. No infiltrates or overt CHF Pleural spaces: Unremarkable. No pleural effusion. No pneumothorax. Heart/Mediastinum: Unremarkable. No cardiomegaly. Bones/joints: Unremarkable for age. XR/XR chest 1V portable [id number] IMPRESSION: Markedly decreased lung volumes otherwise negative chest.
--- NOTE | 2022-06-05 11:57 | W.ED.SEIZURE ---
HPI - Seizure General: Chief Complaint: Seizure Stated Complaint: Abd/Chest pain Time Seen by Provider: 06/05/22 11:26 History of Present Illness: HPI Narrative: 46-year-old male who comes in after having a syncopal episode versus a seizure at his primary care doctor's office. Patient normally drinks a gallon of whiskey a day. He has not had any for the past 48 hours. He states he was in his doctor's office when he started to feel lightheaded. He subsequently woke up on the floor with people around him stating that he had had a seizure. Patient states he has felt very shaky today. He has been dizzy and lightheaded, feeling like his skin is crawling. He does have a numbness of both feet. He has a history of liver failure and was supposed to have paracentesis done today at the GI lab but because of the syncopal episode has been sent to the ER for work-up and treatment. Patient did hit his head and complains of a headache. He is not on chronic anticoagulation. He denies neck pain or back pain. He states he has been having leg and muscle cramping. No prior history of alcohol withdrawal. Associated symptoms: Reports chills; Deny chest pain Review of Systems Const: Reports: chills and body aches Eyes: Denies: change in vision ENMT: Denies: throat pain Card: Reports: swelling of feet/ankles; Denies: chest pain Resp: Reports: dyspnea (States he is short of breath because his abdomen is distended and he cannot) GI: Reports: abdominal pain, nausea and other (Abdominal distention); Denies: vomiting : Denies: flank pain Musc: Denies: neck pain Skin/Breast: Denies: rash Neuro: Denies: headache(s) Psych: Reports: anxiety, depression, difficulty concentrating, auditory hallucinations and homicidal ideation Endo: Denies: polyuria Len/Lymph: Denies: easy bruising All/Imm: Denies: urticaria PFS ED PFSH: Medical History Acne rosacea ALC (alcoholic liver cirrhosis) Alcohol dependence, uncomplicated Bipolar disorder Cerebrovascular accident (CVA) Controlled diabetes mellitus with hyperglycemia Current smoker DM neuropathy, painful Essential (primary) hypertension History of alcohol abuse daily use of hard liquor History of coronary artery disease History of CVA (cerebrovascular accident) 2009 Right side weakness due to a bleed History of memory loss History of schizophrenia Mixed hyperlipidemia Nicotine dependence, cigarettes, uncomplicated Psoriasis Psychiatric care Seizure disorder Surgical History History of colonoscopy with polypectomy 2015 History of esophagogastroduodenoscopy (EGD) History of eye surgery History of heart artery stent Family History Other Dementia Diabetes Hypertension Lung disease Psychiatric illness Stroke Denies family history of Chronic kidney disease (CKD) Anesthesia complication Bleeding disorder Cancer Social History Smoking and tobacco status: current every day smoker cigarettes Packs smoked per day: 2.5 Years cigarettes smoked: 38 Second hand smoke exposure: Yes Smoking risk assessment/counseling performed?: Yes Alcohol intake: current Alcohol intake frequency: 0-2 Drinks per Day Alcohol type: hard liquor Desire information about alcohol rehabilitation?: No Counseling given: No Desire information about substance/drug rehabilitation?: No Counseling given: No Adopted: No Caregiver/support person: Yes Lives independently: No Household members: friend(s) and caregiver Housing: Manufactured/Mobile home Marital status: Number of children: 8 service: No Current occupational status: disabled Pets and animals: Yes History of recent travel: Yes Details: month an a half ago Out of state: Yes Current gender identity: Male Physical Exam Const: COMMON NORMALS: patient oriented x3 HENMT: COMMON NORMALS: normocephalic and atraumatic HEAD & SCALP: normocephalic and atraumatic Eye: COMMON NORMALS: Equal, round and reactive pupils present and EOMs intact bilaterally PUPIL: Yes Equal, round and reactive pupils present Neck/C-Spine: COMMON NORMALS: full ROM and supple Chest: COMMONS NORMALS: normal inspection of the chest and normal palpation of entire chest wall Resp: COMMON NORMALS: normal respiratory effort, No retractions, No use of accessory muscles and clear to auscultation bilaterally AUSCULTATION: clear to auscultation bilaterally OTHER: Decreased breath sounds in lung bases bilaterally Cardio: COMMON NORMALS: regular rhythm and No murmurs present (Cardio) RATE: tachycardic RHYTHM: regular rhythm GI: COMMON NORMALS: Soft to palpation and no masses PALPATION: Yes Soft to palpation OTHER: Abdomen is very distended, mild diffuse tenderness, large amount of ascites Extremity: COMMON NORMALS: normal to inspection and full ROM Neuro: COMMON NORMALS: patient oriented x3, moves all extremities and no focal motor deficits Psych: COMMON NORMALS: cooperative THOUGHT CONTENT: Yes Suicidality present and Yes Hallucination(s) present Skin: COMMON NORMALS: no rashes or lesions noted and no wounds GENERAL SKIN EXAM: no rashes or lesions noted Course Vital Signs: Vital signs: Vital Signs Pulse Rate 110 H 06/05/22 11:10 Respiratory Rate 20 H 06/05/22 11:10 Blood Pressure 113/71 06/05/22 15:00 Pulse Oximetry 93 06/05/22 15:00 Oxygen Delivery Me thod 06/05/22 11:10 MDM - Seizure MDM Narrative Medical decision making narrative: 46-year-old male who presents after probably having a alcohol withdrawal seizure. He is on IV placed and labs obtained. Upon arrival, he was tachycardic and shaky, not having had his usual gallon of whiskey for 2 days. Patient is oriented and appropriate. He did hit his head. CT of his head has been obtained and is negative for acute findings. His chest x-ray is unremarkable. He has had an IV placed and has been given a liter of saline as well as a banana bag IV. On his laboratory evaluation, he is hypocalcemic with a calcium of 7.8 he is hyponatremic with a sodium of 128. Alcohol level is 0. Ammonia levels 58. After IV Ativan, the patient is calm and cooperative, no further shaking, blood pressure and heart rate have normalized. Once his infusions have completed, we will try to get him back to the GI lab to get his paracentesis completed today. Differential Diagnosis Seizure Differential Diagnosis: Likely intractable seizure disorder, generalized seizure and epileptic seizure; Unlikely new onset seizure (Alcohol withdrawal seizure) Lab Data 06/05/22 11:38 06/05/22 12:27 Labs: Radiology Impressions Chest X-Ray 06/05/22 11:53 IMPRESSION: Markedly decreased lung volumes otherwise negative chest. Head CT 06/05/22 11:53 IMPRESSION: 1. No evidence of intracranial hemorrhage or mass effect. 2. Mild small vessel changes. Moderate parenchymal volume loss. 3. No acute intracranial findings. Laboratory Results WBC 8.7 10^3/uL (4.0-10.0) 06/05/22 11:38 RBC 4.25 10^6/uL (4.1-5.3) 06/05/22 11:38 Hgb 14.8 g/dL (11.7-16.6) 06/05/22 11:38 Hct 42.9 % (42.0-52.0) 06/05/22 11:38 MCV 100.9 fl (80-94) H 06/05/22 11:38 MCH 34.8 pg (28.0-34.0) H 06/05/22 11:38 MCHC 34.5 g/dL (30.0-36.0) 06/05/22 11:38 RDW 12.2 % (12.1-15.1) 06/05/22 11:38 Plt Count 147 10^3/cmm (130-400) 06/05/22 11:38 MPV 11.5 fL (7.4-10.4) H 06/05/22 11:38 Neut % (Auto) 76.6 % 06/05/22 11:38 Lymph % (Auto) 12.3 % 06/05/22 11:38 [place] % (Auto) 8.4 % 06/05/22 11:38 Eos % (Auto) 1.8 % 06/05/22 11:38 Baso % (Auto) 0.7 % 06/05/22 11:38 Neut # (Auto) 6.64 10^3/uL (1.8-7.7) 06/05/22 11:38 Lymph # (Auto) 1.1 10^3/uL (0.8-4.8) 06/05/22 11:38 [place] # (Auto) 0.7 10^3/uL (0.2-0.9) 06/05/22 11:38 Eos # (Auto) 0.2 10^3/uL (0.0-0.8) 06/05/22 11:38 Baso # (Auto) 0.1 10^3/uL (0.0-0.1) 06/05/22 11:38 Nucleated RBC % (auto) 0 % 06/05/22 11:38 Nucleated RBCs # 0.0 /100WBC 06/05/22 11:38 PT 16.00 SECONDS (12.1-14.9) H 06/05/22 11:38 INR 1.25 (0.8-1.2) H 06/05/22 11:38 Sodium 128 mmol/L (136-145) L 06/05/22 12:27 Potassium 3.8 mmol/L (3.5-5.1) 06/05/22 12:27 Chloride 98 mmol/L (98-107) 06/05/22 12:27 Carbon Dioxide 22 mmol/L (22-29) 06/05/22 12:27 Anion Gap 11.8 (5-19) 06/05/22 12:27 BUN 3 mg/dL (6-20) L 06/05/22 12:27 Creatinine 0.5 mg/dL (0.7-1.2) L 06/05/22 12:27 GFR Calculation 177.5 mL/min (90-130) H 06/05/22 12:27 Glucose 105 mg/dL (65-115) 06/05/22 12:27 POC Glucose 102 mg/dL (70-110) 06/05/22 12:07 Calculated Osmolality 263 mOsm/kg (285-295) L 06/05/22 12:27 Calcium 7.8 mg/dL (8.5-10.5) L 06/05/22 12:27 Magnesium 1.7 mg/dL (1.7-2.3) 06/05/22 12:27 Total Bilirubin 1.6 mg/dL (0.15-1.2) H 06/05/22 12:27 AST 41 U/L (0-40) H 06/05/22 12:27 ALT 16 U/L (0-41) 06/05/22 12:27 Alkaline Phosphatase 71 U/L (40-130) 06/05/22 12:27 Ammonia 58 umol/L (16-60) 06/05/22 12:07 Creatine Kinase 89 U/L (39-308) 06/05/22 12:27 Total Protein 6.3 g/dL (6.6-8.7) L 06/05/22 12:27 Albumin 2.3 g/dL (3.5-5.2) L 06/05/22 12:27 Globulin 4.0 g/dL (1.3-4.6) 06/05/22 12:27 Salicylates 2.1 mg/dL (3-10) L 06/05/22 12:27 Acetaminophen < 5.0 ug/mL (10-30) L 06/05/22 12:27 Ethyl Alcohol < 10 mg/dL (0-10) 06/05/22 12: EKG Data EKG 1: Attestation: I personally reviewed and interpreted this EKG as follows: EKG interpretation date: 06/05/22 EKG interpretation time: Interpretation: Normal's sinus tachycardia, no peaked T waves, no ST segment elevation or depression, normal intervals, Q waves in the anteroseptal leads Discharge Plan Discharge Patient Disposition: Home Clinical Impression: Alcohol withdrawal seizure, Ascites, ALC (alcoholic liver cirrhosis), Hypocalcemia, Chronic hyponatremia, Alcohol dependence, Head injury Condition: Stable Prescriptions: New Spritam 500 mg tablet for suspension 500 mg PO BID 30 Days Qty: 60 0RF Ativan 1 mg tablet 1 mg PO Q8H PRN (Reason: alcohol withdrawal) Qty: 10 0RF Rx Instructions: take 3 times a day for the next 3 days- do not drink alcohol with this medication No Action folic acid 1 mg Tablet 1 mg PO DAILY 30 Days Qty: 30 1RF potassium chloride 10 mEq tablet extended release 10 meq PO DAILY pantoprazole 40 mg Tablet,Delayed Release (Dr/Ec) 40 mg PO DAILY Qty: 30 0RF lactulose 20 gram/30 mL Solution 30 g PO TID 30 Days Qty: 4050 1RF thiamine mononitrate (vit B1) [Vitamin B-1 (mononitrate)] 100 mg Tablet 100 mg PO DAILY 30 Days Qty: 30 1RF Invega Sustenna 234 mg/1.5 mL syringe 234 mg IM Q30D Qty: 1.5 1RF Rx Instructions: Next dose 06/22/2022 citalopram 40 mg tablet 40 mg PO DAILY magnesium Tablet PO vit D3-folic [id number] 2,000-800-0.32 unit-mcg-mg Tablet PO Discharge Orders: Discharge ED (Routine); Ordered 06/05/22 Ordered By: Griselda Griffiths Referrals: Jewell Hugo FNP-C [Primary Care Provider] - Discharge Diet: Advance as tolerated Discharge Activity: Increase activity as tolerated Patient Instructions: Alcohol Withdrawal, Head Injury (ED), Opioid Safety, Pain Management, Seizures Activity Restrictions/Additional Instructions: Take the Keppra twice daily as prescribed. Take Ativan 3 times daily for the next 3 days. Do not drink alcohol and take the Ativan. Giving you the Ativan is with the intent that she plan to stop drinking. This is to hopefully prevent further alcohol withdrawal seizures. Return to the ER if you start to have more shakiness, have any hallucinations, persistent vomiting or recurrent seizure activity. Coding Level of Care Code ED Time Clock Inspector for Carlos Fwd Exam Comprehensive Medical Decision Making High Complexity
[2022-06-05 12:08] LABS: Basophils # 0.1 10^3/uL (0.0-0.1); Basophils % 0.7 %; Eosinophils # 0.2 10^3/uL (0.0-0.8); Eosinophils % 1.8 %; Hematocrit 42.9 % (42.0-52.0); Hemoglobin 14.8 g/dL (11.7-16.6); Lymphocytes # 1.1 10^3/uL (0.8-4.8); Lymphocytes % 12.3 %; Mean Corpuscular HGB Conc 34.5 g/dL (30.0-36.0); Mean Corpuscular Hemoglobin 34.8 pg (28.0-34.0); Mean Corpuscular Volume 100.9 fl (80-94); Mean Platelet Volume 11.5 fL (7.4-10.4); Monocytes # 0.7 10^3/uL (0.2-0.9); Monocytes % 8.4 %; Neutrophils # 6.64 10^3/uL (1.8-7.7); Neutrophils % 76.6 %; Nucleated Red Blood Cells % 0 %; Platelet Count 147 10^3/cmm (130-400); Red Blood Count 4.25 10^6/uL (4.1-5.3); Red Cell Distribution Width 12.2 % (12.1-15.1); White Blood Count 8.7 10^3/uL (4.0-10.0)
[2022-06-05] MEDS: LORazepam 2 mg/mL INJ 1 mL IVP (12:09)
[2022-06-05] MEDS: sodium chloride 0.9% 1,000 ML 999 ML IV (12:09)
[2022-06-05 12:13] LABS: Glucose Point of Care 102 mg/dL (70-110)
[2022-06-05 12:22] LABS: INR 1.25 (0.8-1.2)
[2022-06-05 12:33] LABS: Ammonia 58 umol/L (16-60)
[2022-06-05] MEDS: folic acid 1 MG, multivitamin inj 10 ML, thiamine 100 MG in sodium chloride 0.9% 1,000 ML 252.8 MG IV (12:37)
[2022-06-05 12:56] LABS: Acetaminophen < 5.0 ug/mL (10-30); Alanine Aminotransferase 16 U/L (0-41); Albumin Level 2.3 g/dL (3.5-5.2); Alcohol Level < 10 mg/dL (0-10); Alkaline Phosphatase 71 U/L (40-130); Anion Gap 11.8 (5-19); Aspartate Amino Transferase 41 U/L (0-40); Blood Urea Nitrogen 3 mg/dL (6-20); Calcium 7.8 mg/dL (8.5-10.5); Carbon Dioxide 22 mmol/L (22-29); Chloride 98 mmol/L (98-107); Creatine Phosphokinase 89 U/L (39-308); Glomerular Filtration Rate 177.5 mL/min (90-130); Glucose 105 mg/dL (65-115); Magnesium 1.7 mg/dL (1.7-2.3); Osmolality Calculated 263 mOsm/kg (285-295); Potassium 3.8 mmol/L (3.5-5.1); Salicylate 2.1 mg/dL (3-10); Sodium 128 mmol/L (136-145); Total Bilirubin 1.6 mg/dL (0.15-1.2); Total Protein 6.3 g/dL (6.6-8.7)
[2022-06-05] MEDS: calcium gluconate 0.9% NaCL 1 GM/50 ML PREMIX IV (14:04)
[2022-06-05] MEDS: sodium chloride 0.9% 500 ML IV (15:06)
== END 2022-06-05 15:27 | disposition home or self-care (01) ==
PROVIDERS: Emergency Provider Emergency Medicine; PCP Nurse Practitioner Family
DX: F10.239 Alcohol dependence with withdrawal, unspecified (principal); G40.89 Other seizures; K70.31 Alcoholic cirrhosis of liver with ascites; E83.51 Hypocalcemia; E87.1 Hypo-osmolality and hyponatremia; S09.90XA Unspecified injury of head, initial encounter; F17.210 Nicotine dependence, cigarettes, uncomplicated; Z86.73 Personal history of transient ischemic attack (TIA), and cerebral infarction without residual deficits; E11.9 Type 2 diabetes mellitus without complications; I10 Essential (primary) hypertension; I25.10 Atherosclerotic heart disease of native coronary artery without angina pectoris; E78.2 Mixed hyperlipidemia; W18.30XA Fall on same level, unspecified, initial encounter
CPT/HCPCS: 36415; 36416; 70450; 71045; 80053; 80307; 82140; 82550; 82962; 83735; 85025; 85610; 93005; 96361; 96365; 96367; 96375; 99285; J0610; J1953; J2060; J3411; J3490; J7030; J7040

== ENCOUNTER 2022-06-05 16:23 | Inpatient (IN) | payer MEDICARE, MEDICAID, SELFPAY ==
[2022-06-05] VITALS (37 sets, daily range): BP systolic 92–134; BP diastolic 62–99; PULSE 63–117; RESP 18–33; TEMP 37.1; O2SAT 90–98; BMI 32.3
[2022-06-05 16:39] LABS: Glucose Point of Care 104 mg/dL (70-110)
--- NOTE | 2022-06-05 16:46 | ED_ITS ---
HPI - General Adult General: Chief complaint: General Medical Stated complaint: Passed out in wr Time Seen by Provider: 06/05/22 16:31 History of Present Illness: 46-year-old male with a history of epilepsy as well as alcohol abuse presents after having a second seizure while sitting in the waiting room in a wheelchair. Patient was just seen earlier today after having had a generalized seizure in his primary care doctor's office. He normally drinks a gallon of whiskey daily but has not had any alcohol for 2 days. He was supposed to have his ascites drained but was brought here from his primary care doctor's office and did not make it to that appointment. He was waiting for a ride back home when the patient slumped over and fell out of the wheelchair. Patient was incontinent of a small amount of urine. He is amnestic to the event. There is no further seizure activity upon our approach to the patient. He denies headache or neck pain or back pain. He currently continues to complain of abdominal distention and fullness and pain as well as shortness of breath related to his ascites. Associated symptoms: Deny chest pain, dyspnea, nausea, rash or vomiting Review of Systems Const: Denies: fever(s), chills, body aches or change in appetite Eyes: Denies: blurry vision or eye discomfort ENMT: Denies: throat pain or dental pain Card: Denies: chest pain Resp: Denies: dyspnea GI: Reports: abdominal pain; Denies: nausea, vomiting or diarrhea : Denies: dysuria Musc: Denies: neck pain or back pain Skin/Breast: Denies: rash Psych: Reports: anxiety, depression, auditory hallucinations and tactile hallucinations Len/Lymph: Denies: easy bruising All/Imm: Denies: urticaria PFSH ED PFSH: Medical History Acne rosacea ALC (alcoholic liver cirrhosis) Alcohol dependence, uncomplicated Bipolar disorder Cerebrovascular accident (CVA) Controlled diabetes mellitus with hyperglycemia Current smoker DM neuropathy, painful Essential (primary) hypertension History of alcohol abuse daily use of hard liquor History of coronary artery disease History of CVA (cerebrovascular accident) 2010 Right side weakness due to a bleed History of memory loss History of schizophrenia Mixed hyperlipidemia Nicotine dependence, cigarettes, uncomplicated Psoriasis Psychiatric care Seizure disorder Surgical History History of colonoscopy with polypectomy 2016 History of esophagogastroduodenoscopy (EGD) History of eye surgery History of heart artery stent Family History Other Dementia Diabetes Hypertension Lung disease Psychiatric illness Stroke Denies family history of Chronic kidney disease (CKD) Anesthesia complication Bleeding disorder Cancer Social History Smoking and tobacco status: current every day smoker cigarettes Packs smoked per day: 2.5 Years cigarettes smoked: 38 Second hand smoke exposure: Yes Smoking risk assessment/counseling performed?: Yes Alcohol intake: current Alcohol intake frequency: 0-2 Drinks per Day Alcohol type: hard liquor Desire information about alcohol rehabilitation?: No Counseling given: No Desire information about substance/drug rehabilitation?: No Counseling given: No Adopted: No Caregiver/support person: Yes Lives independently: No Household members: friend(s) and caregiver Housing: Manufactured/Mobile home Marital status: Number of children: 8 service: No Current occupational status: disabled Pets and animals: Yes History of recent travel: Yes Details: month an a half ago Out of state: Yes Current gender identity: Male Physical Exam Const: COMMON NORMALS: patient oriented x3 HENMT: COMMON NORMALS: normocephalic and atraumatic HEAD & SCALP: normocephalic and atraumatic Eye: COMMON NORMALS: Equal, round and reactive pupils present and EOMs intact bilaterally PUPIL: Yes Equal, round and reactive pupils present Neck/C-Spine: COMMON NORMALS: full ROM and supple Chest: COMMONS NORMALS: normal inspection of the chest and normal palpation of entire chest wall Resp: COMMON NORMALS: normal respiratory effort, No retractions, No use of accessory muscles and clear to auscultation bilaterally AUSCULTATION: clear to auscultation bilaterally OTHER: Decreased breath sounds in lung bases bilaterally Cardio: COMMON NORMALS: regular rhythm and No murmurs present (Cardio) RATE: tachycardic RHYTHM: regular rhythm GI: COMMON NORMALS: Soft to palpation and no masses PALPATION: Yes Soft to palpation OTHER: Abdomen is very distended, mild diffuse tenderness, large amount of ascites Extremity: COMMON NORMALS: normal to inspection and full ROM Neuro: COMMON NORMALS: patient oriented x3, moves all extremities and no focal motor deficits Psych: COMMON NORMALS: cooperative THOUGHT CONTENT: Yes Suicidality present and Yes Hallucination(s) present Skin: COMMON NORMALS: no rashes or lesions noted and no wounds GENERAL SKIN EXAM: no rashes or lesions noted Course ED course: Patient was just seen in the ER and released, waiting for his Medicaid ride. From his prior ER visit, he was given a liter of saline as well as a banana bag IV. He was given IV Ativan with improvement of his heart rate and his blood pressure. Upon arrival back, he is again tachycardic, he has [place] hypertension and is postictal. Will discuss with the hospitalist for admission for alcohol withdrawal protocol Consultations: Consultation #1: Discussed with hospitalist for admission to ICU Vital Signs: Vital signs: Vital Signs Pulse Rate 115 H 06/05/22 16:38 Respiratory Rate 22 H 06/05/22 16:38 Blood Pressure 129/99 06/05/22 16:38 Pulse Oximetry 96 06/05/22 16:38 Oxygen Delivery Me thod 06/05/22 16:38 MDM - General Adult Medical Decision Making 38-year-old male who typically drinks at least a gallon of whiskey daily who presents not having had alcohol for the over 48 hours after having had a generalized seizure earlier and being evaluated and treated in the emergency department, subsequently having a secondary seizure while in the waiting room waiting to be picked up. Patient also has a history of a seizure disorder and is supposed to be on Keppra. Earlier he was loaded with IV Keppra. He was gi pablo IV Ativan. Vital signs improved. Upon return, he is postictal, tachycardic, mildly hypertensive. Had a second seizure while in the waiting room and suspect this is likely due to alcohol withdrawal. With the recurrent seizure, patient will need admission to the intensive care unit until his withdrawal passes. Will discuss with hospitalist for admission Lab Data Laboratory Results POC Glucose 104 mg/dL (70-110) 06/05/22 16:35 Discharge Plan Discharge Patient Disposition: Admitted As Inpatient Clinical Impression: Alcohol withdrawal seizure Condition: Stable Prescriptions: No Action folic acid 1 mg Tablet 1 mg PO DAILY 30 Days Qty: 30 1RF potassium chloride 10 mEq tablet extended release 10 meq PO DAILY pantoprazole 40 mg Tablet,Delayed Release (Dr/Ec) 40 mg PO DAILY Qty: 30 0RF lactulose 20 gram/30 mL Solution 30 g PO TID 30 Days Qty: 4050 1RF thiamine mononitrate (vit B1) [Vitamin B-1 (mononitrate)] 100 mg Tablet 100 mg PO DAILY 30 Days Qty: 30 1RF Invega Sustenna 234 mg/1.5 mL syringe 234 mg IM Q30D Qty: 1.5 1RF Rx Instructions: Next dose 06/22/2022 citalopram 40 mg tablet 40 mg PO DAILY magnesium Tablet PO vit D3-folic [id number] 2,000-800-0.32 unit-mcg-mg Tablet PO Ativan 1 mg tablet 1 mg PO Q8H PRN (Reason: alcohol withdrawal) Qty: 10 0RF Rx Instructions: take 3 times a day for the next 3 days- do not drink alcohol with this medication Referrals: Jewell Hugo FNP-C [Primary Care Provider] - Coding Level of Care Code ED Bus Attendant for [place] Fwd Exam Comprehensive
[2022-06-05] MEDS: LORazepam 2 mg/mL INJ 1 mL 1 MG IVP (16:54)
--- NOTE | 2022-06-05 19:12 | PM.HP ---
Providers/Chief Complaint Primary Care Provider: YENI Perez Chief Complaint: Passed out in wr History of Present Illness Reinaldo Flores is a 46 year old male with history of alcohol abuse, currently drinking 1 gallon of whiskey every day, recent paracentesis was done on Saturday 6 L were removed presented with abdominal pain. Patient had couple of little bit of procedures today 1 was weakness in the waiting room when he was being discharged. Hospice has been requested admit him because of his withdrawal symptoms and recurrent breakthrough seizures. Patient stating that his abdominal pain has gotten worse and abdomen is bloated. He started noticing fever after his paracentesis T-max 101 at home he is also experiencing diarrhea cough lethargy and fatigue I will request diagnostic and therapeutic paracentesis we will give him albumin, admit to ICU given phenobarbital for alcohol withdrawal symptoms, continue Keppra Review of Systems Const: Reports: chills and body aches Eyes: Denies: change in vision ENMT: Denies: throat pain Card: Denies: chest pain Resp: Denies: dyspnea GI: Reports: abdominal pain : Denies: flank pain Musc: Denies: neck pain Skin/Breast: Denies: rash Neuro: Denies: headache(s) Psych: Reports: anxiety Endo: Denies: polyuria Len/Lymph: Denies: easy bruising All/Imm: Denies: urticaria Medications/Allergies Home Medications Medication Instructions Recorded Confirmed Last Taken Type folic acid 1 mg tablet 1 mg PO DAILY 30 days #30 tabs 04/16/22 06/05/22 05/17/22 09:00 Rx potassium chloride 10 mEq 10 meq PO DAILY 04/28/22 06/05/22 1 Month Ago History tablet,extended release ~04/28/22 pantoprazole 40 mg tablet,delayed 40 mg PO DAILY #30 tabs 04/29/22 06/05/22 05/17/22 09:00 Rx release lactulose 20 gram/30 mL oral 30 g (45 mL) PO TID 30 days #4,050 05/21/22 06/05/22 05/27/22 Rx solution mL paliperidone palmitate 234 mg/1.5 234 mg (1.5 mL) IM Q30D #1.5 mL 05/21/22 06/05/22 2 Weeks Ago Rx mL intramuscular syringe (Invega ~05/14/22 Sustenna) thiamine mononitrate (vit B1) 100 100 mg PO DAILY 30 days #30 tabs 05/21/22 06/05/22 1 Month Ago Rx mg tablet (Vitamin B-1 ~04/28/22 (mononitrate)) citalopram 40 mg tablet 40 mg PO DAILY 05/24/22 06/05/22 05/27/22 History magnesium tab PO 05/28/22 06/05/22 Unknown History vit D3-folic acid-vit B2-B6-B12 tab PO 05/28/22 06/05/22 Unknown History 2,000 unit-800 mcg-0.32 mg tablet lorazepam 1 mg tablet (Ativan) 1 mg PO Q8H PRN alcohol withdrawal 06/05/22 Unknown Rx #10 tabs Allergies Allergy/AdvReac Type Severity Reaction Status Date / Time clozapine [From Clozaril] AdvReac Severe Lowered Verified 06/05/22 09:36 his WBC he says divalproex sodium AdvReac Severe swelling Verified 06/05/22 09:36 [From Depakote] haloperidol [From Haldol] AdvReac Severe swelling Verified 06/05/22 09:36 nitroglycerin AdvReac Severe Stopped Verified 06/05/22 09:36 heart Bee stings Allergy Severe Swelling & Uncoded 06/05/22 09:36 breathing problems, Anaphylactic shock PFSH Acute PFSH: Medical History Acne rosacea ALC (alcoholic liver cirrhosis) Alcohol dependence, uncomplicated Bipolar disorder Cerebrovascular accident (CVA) Controlled diabetes mellitus with hyperglycemia Current smoker DM neuropathy, painful Essential (primary) hypertension History of alcohol abuse daily use of hard liquor History of coronary artery disease History of CVA (cerebrovascular accident) 2009 Right side weakness due to a bleed History of memory loss History of schizophrenia Mixed hyperlipidemia Nicotine dependence, cigarettes, uncomplicated Psoriasis Psychiatric care Seizure disorder Surgical History History of colonoscopy with polypectomy 2015 History of esophagogastroduodenoscopy (EGD) History of eye surgery History of heart artery stent Family History Other Dementia Diabetes Hypertension Lung disease Psychiatric illness Stroke Denies family history of Chronic kidney disease (CKD) Anesthesia complication Bleeding disorder Cancer Social History Smoking and tobacco status: current every day smoker cigarettes Packs smoked per day: 2.5 Years cigarettes smoked: 38 Second hand smoke exposure: Yes Smoking risk assessment/counseling performed?: Yes Alcohol intake: current Alcohol intake frequency: 0-2 Drinks per Day Alcohol type: hard liquor Desire information about alcohol rehabilitation?: No Counseling given: No Desire information about substance/drug rehabilitation?: No Counseling given: No Adopted: No Caregiver/support person: Yes Lives independently: No Household members: friend(s) and caregiver Housing: Manufactured/Mobile home Marital status: Number of children: 8 service: No Current occupational status: disabled Pets and animals: Yes History of recent travel: Yes Details: month an a half ago Out of state: Yes Current gender identity: Male Vitals/I&O/Wt Last Vital Signs Pulse 100 06/05/22 17:10 Resp 18 06/05/22 17:10 BP 105/62 06/05/22 18:45 Pulse Ox 91 06/05/22 18:45 O2 Del Method 06/05/22 16:38 Weight last 48 hrs Weight 96.615 kg Physical Exam Narrative: Patient is laying supine Complaining of abdominal pain however abdomen on examination is nontender, mild tenderness on deep palpation Ascites positive S1, S2 Currently afebrile Hemodynamically stable Unkept appearance Mild coarse tremors noted Awake and alert Nonfocal neuro exam Currently doing well on room air A&P Assessment and plan (1) Alcohol withdrawal seizure: (2) Ascites: (3) Alcohol dependence: (4) Alcohol withdrawal seizure: (5) Diabetic feet: (6) Schizophrenia: (7) Ascites: (8) ALC (alcoholic liver cirrhosis): (9) Hypomagnesemia: Plan Alcohol related liver cirrhosis Recurrent ascites ceftriaxone 2 g empirically for empirically for SBP Patient definitely would benefit from TIPS procedure Will request diagnostic and therapeutic paracentesis No active signs of hepatic encephalopathy Active alcohol withdrawal seizure witnessed by the staff We will put him on phenobarbital 120 mg IV Q1h folic acid We will give him albumin Recent paracentesis on Saturday Is an active smoker, drinks 1 gallon of whiskey every day Check drug screen Patient has not taken his Keppra for at least 1 year Is full code, Admit to ICU because of breakthrough seizures Hypervolemic hyponatremia We will keep him on Lasix Attestations Medical Necessity Statement*: Anticipate discharge within 48 hours if clinically stays stable Time Spent in Patient Care: 40 Coding Level of Care Code Acute Player Development Executive for Chg Fwd Diagnoses Alcohol withdrawal seizure F10.939; R56.9 Ascites R18.8 Alcohol dependence F10.20 Alcohol withdrawal seizure F10.939; R56.9 Diabetic feet E11.8 Schizophrenia F20.9 Ascites R18.8 ALC (alcoholic liver cirrhosis) K70.30 Hypomagnesemia E83.42
--- NOTE | 2022-06-05 19:42 | PC.NURSE ---
patient placed on 2L/min O2 due to patient O2 sat being 87%
[2022-06-05 21:19] LABS: Procalcitonin 0.06 ng/mL (0-0.5)
[2022-06-06] VITALS (74 sets, daily range): BP systolic 81–136; BP diastolic 47–87; PULSE 65–116; RESP 18–30; TEMP 36.9–37.1; O2SAT 84–100
--- NOTE | 2022-06-06 00:44 | PM.CCNAC ---
Critical Care Event Note The high probability of a clinically significant, sudden or life threatening deterioration of the patient's [] system(s) required my full and direct attention, intervention and personal management. The critical care time is as shown. This time is in addition to time spent performing any reported procedures but includes the following: [x] Data and vital sign review and interpretation [x] Patient assessment, examination and intervention [x] Documentation [x] Medication orders and management Critical Care Time Code activated: No Critical Care Time (min): 0 Additional information about critical care time: Patient was examined this morning at 12:30 AM, he recently was moved to the ICU from the emergency room -I was notified by nursing staff that patient had voiced homicidal ideation towards his ex- -He was examined in ICU, blood pressure 112/76, pulse of 98, respiratory 20 on 90% room air -He is alert oriented x3, he awakens easily, -I had a detailed discussion with patient, I discussed our concerns, especially as he has voiced homicidal ideation towards his ex- -I clearly asked patient if he has intentions to harm/hurt his , he said yes, he wants to kill his ex -I then asked if he has any plans, he tells me he plans on just kicking in her door, and shooting her -He denies any suicidal ideation -He is clear about the implications of what he is telling me, and I advised him that we take all threats seriously -Currently he is in the ICU, he has no access to any weapons, nor has he asked to call anybody, he has not voiced any intention to leave the hospital or leave AGAINST MEDICAL ADVICE -Currently I feel he is not imminent harm or threat towards his exwife -We will monitor him here in ICU, placed on suicide precautions, will need to discuss with psychiatry in the morning, and we will have to notify his ex-, potentially discussed with law enforcement -However if he tries to leave the hospital or tries to leave AGAINST MEDICAL ADVICE then we will have to consider 96-hour hold - Coding Level of Care Code Acute Sales Representative Health Insurance for Carlos Armstrong
--- NOTE | 2022-06-06 00:57 | PC.NURSE ---
Patient arrived on unit 2300. Patient complained of abdominal pain 02/17. Reports he has been experiencing discomfort since his last paracentesis with periods of N/V and constipation. Upon assessment he also admitted he had homicidal thoughts and plans towards his Ex. Hospitalist notified and spoke with patient.
[2022-06-06 02:59] LABS: Basophils # 0.1 10^3/uL (0.0-0.1); Basophils % 0.8 %; Eosinophils # 0.4 10^3/uL (0.0-0.8); Eosinophils % 6.8 %; Hemoglobin 12.7 g/dL (11.7-16.6); Lymphocytes # 1.2 10^3/uL (0.8-4.8); Mean Corpuscular HGB Conc 33.4 g/dL (30.0-36.0); Mean Corpuscular Hemoglobin 34.5 pg (28.0-34.0); Mean Corpuscular Volume 103.3 fl (80-94); Mean Platelet Volume 10.6 fL (7.4-10.4); Monocytes # 0.6 10^3/uL (0.2-0.9); Monocytes % 9.6 %; Neutrophils # 3.83 10^3/uL (1.8-7.7); Neutrophils % 62.3 %; Nucleated Red Blood Cells % 0 %; Platelet Count 142 10^3/cmm (130-400); Red Blood Count 3.68 10^6/uL (4.1-5.3); Red Cell Distribution Width 12.2 % (12.1-15.1); White Blood Count 6.2 10^3/uL (4.0-10.0)
[2022-06-06 03:23] LABS: Alanine Aminotransferase 15 U/L (0-41); Albumin Level 2.3 g/dL (3.5-5.2); Alkaline Phosphatase 66 U/L (40-130); Anion Gap 10.1 (5-19); Aspartate Amino Transferase 44 U/L (0-40); Blood Urea Nitrogen 3 mg/dL (6-20); C Reactive Protein 17.9 mg/L (0.0-4.9); Carbon Dioxide 23 mmol/L (22-29); Chloride 106 mmol/L (98-107); Globulin 3.5 g/dL (1.3-4.6); Glomerular Filtration Rate 177.5 mL/min (90-130); Glucose 82 mg/dL (65-115); Magnesium 1.7 mg/dL (1.7-2.3); Osmolality Calculated 276 mOsm/kg (285-295); Phosphorus 3.9 mg/dL (2.5-4.5); Potassium 4.1 mmol/L (3.5-5.1); Sodium 135 mmol/L (136-145); Total Bilirubin 2.3 mg/dL (0.15-1.2); Total Protein 5.8 g/dL (6.6-8.7)
[2022-06-06] MEDS: folic acid 1 mg Tablet PO (09:01)
[2022-06-06] MEDS: magnesium oxide 400 mg tablet 200 MG PO (09:01)
[2022-06-06] MEDS: levETIRAcetam 500 mg Tablet 750 MG PO ×2 (09:01→18:15)
[2022-06-06] MEDS: pantoprazole DR 40 mg Tablet PO (09:01)
[2022-06-06] MEDS: thiamine 100 mg Tablet PO (09:01)
[2022-06-06] MEDS: FUROsemide 10 mg/mL SDV 10mL 20 MG IVP (09:01)
[2022-06-06] MEDS: cefTRIAXone 2,000 MG in sodium chloride 0.9% (plus) 50 ML 100 MG IV (09:59)
--- NOTE | 2022-06-06 10:11 | PC.CHAP ---
Pastoral Care Encounter/Spiritual Assessment Type of Contact [] Declined automation technician visit [] Patient/Family/Request visit [] Outpatient visit [] Follow-up visit [] Physician referral [] Code/Alert [x] Routine visit [] Staff referral [] Actively dying [x] Patient sleeping [] Family support [] [] Out of room [] Palliative care [] [] Receiving care in room [] Pre-surgical visit [] Trauma [] Long length of stay [x] ICU visit [x] Other: setter Relational/Emotional Strength [] Patient feels connected with others/family/visitors/staff [] Distress [] Loneliness/isolation [] Abandonment Spirituality of Patient [] Person of Cecilia [] Attends Confucianism of their Cecilia [] Believes in Prayer [] Reads Bible or Pentecostalism materials [] There are Spiritual issues to be addressed Document Control Manager Interventions [x] Prayer [] Active listening [] Non-anxious presence [] Spiritual/emotional support [] Crisis/trauma care [] Spiritual counseling [] Bereavement support [] Provided bereavement packet [] Provided Bible/devotional materials [] Provided toy/stuffed animal, coloring book to patient or family member [] Provided Communion [] Anointing/[place] [] Salvation [x] Completed spiritual assessment [] Other: Impact on Illness or Injury [] Angry [] Fearful [] Anxious [] Often cries [] Exhaustion [] Unable to work [] Unable to attend yazidi [] Unable to walk/stand [] Unable to read [] Unable to drive [] Unable to eat/drink [] Unable to sleep [] Unable to be with family [] Patient intubated [] Other: Summary Time spent with patient
--- NOTE | 2022-06-06 12:46 | PM.PN ---
Subjective Subjective: Overnight events noted, I have spoken with psychiatrist who will evaluate the patient at bedside Status post paracentesis Afebrile No leukocytosis Rule out SBP 7 L removed today Patient will stay in ICU until cleared by psychiatrist This morning patient is stating that he does not recall making any homicidal statements yesterday Vitals/I&O/Wt Last Vital Signs Temp 98.7 F 06/06/22 04:00 Pulse 105 H 06/06/22 10:00 Resp 23 H 06/06/22 10:00 BP 118/76 06/06/22 10:00 Pulse Ox 95 06/06/22 10:00 O2 Del Method 06/06/22 10:00 O2 Flow Rate 4 06/06/22 08:00 06/05/22 06/06/22 06/06/22 22:59 06:59 14:59 Intake Total 100 / 100 150 / 150 Output Total 975 / 975 Balance 100 / 100 -825 / -825 Weight last 48 hrs Weight 96.388 kg Weight 96.615 kg Physical Exam Narrative: Patient is laying supine Complaining abdominal pain It is soft 1 palpation mild tenderness on deep palpation No active emesis No active signs of withdrawal No signs of asterixis S1, S2 sinus tachycardia Clinically fluid overloaded Currently on 2 L nasal cannula Awake and alert Data 06/06/22 02:16 06/06/22 02:16 A&P Assessment and plan (1) Alcohol withdrawal seizure: (2) Ascites: (3) Homicidal ideation: (4) Chronic hyponatremia: (5) Alcohol dependence: (6) Alcohol withdrawal seizure: (7) Schizophrenia: Plan No recurrence of seizure No active signs of alcohol withdrawal Status post paracentesis 7 L removed Continue albumin Homicidal ideation, requested psychiatrist to evaluate him at the bedside He cannot leave unless cleared by psychiatrist Continue antibiotics Rule out SBP Currently on one-to-one supervision No active signs of hepatic encephalopathy Full code Needs a TIPS procedure to prevent readmissions for recurrent ascites Attestations Medical Necessity Statement*: Continue ICU management Critical Care Time: 30 Coding Level of Care Code Acute Instrument Tester for Chg Fwd Diagnoses Alcohol withdrawal seizure F10.939; R56.9 Ascites R18.8 Homicidal ideation R45.850 Chronic hyponatremia E87.1 Alcohol dependence F10.20 Alcohol withdrawal seizure F10.939; R56.9 Schizophrenia F20.9
--- NOTE | 2022-06-06 15:01 | PC.NURSE ---
Report called to [facility] in [facility], patient and belongings taken to [facility] unit. IV removed, patient placed in paper scrubs.
--- NOTE | 2022-06-06 15:09 | P.NPUCON_ITS ---
Providers/Reason for Consult Consulting Physican/Specialty*: Simeon Mahan MD Reason for Consult*: Homicidal ideation Attending Physician: Judith Graves MD Primary Care Provider: YENI Perez Psych Consult HPI History of Present Illness Reinaldo Flores is a 46 year old male with a history of alcohol abuse,cirrhosis of the liver, paracentesis earlier this week who was admitted to the ICU for alcohol withdrawal symptom symptoms. The patient had been stabilized in the ICU and had reported active alcohol consumption including consuming a gallon of whiskey on a daily basis. He reports that he had recently been discharged from the neuropsychiatric unit 2 weeks ago on Citalopram and the Invega Sustenna. He returned reports continued problems with his mood and state s that he does not wish to receive any help from the behavioral health outpatient clinic here in [place]. He reported clearly that he is now ready to kill his ex- who had prevented the patient from having contact with the children all of these years. He reports that now that the youngest 1 is 18 years old, he will shoot his ex- with one of his many firearms. Patient had reported anger towards his ex- and stated that he knew where she lived. The patient's current had stated that the patient had no clear idea of her whereabouts when the clinical writer of this note spoke on the phone to her. The patient will be admitted to the neuropsychiatric unit involuntarily on a 96- hour hold for further evaluation and treatment. This is an excerpt from previous admission on 05/25/22: ? Brief History: History of Present Illness Reinaldo Flores is a 46 year old male who presented to the emergency department with the following report: Chief Complaint: Psychiatric Symptoms Stated Complaint: SI Time Seen by Provider: 05/15/22 19:10 Source: EMS Mode of arrival: EMS Limitations: no limitations History of Present Illness:?? 46-year-old male who states he has been hearing voices since yesterday he has a history of cirrhosis is an alcoholic he states that he has heard voices throughout the night's been telling to kill himself he states he does have a plan to shoot himself he denies any worsening improving factors.? He is talking a third person currently Associated symptoms: Reports auditory hallucinations, depression and suicidal ideation. He was admitted to the neuropsychiatric unit for definitive treatment of those issues.? He presents today reporting that he does not have any current medications because he and [facility] had an issue because they were going to require him to be a walk-in and he cannot be around that many people for that long so his medication ended which included an Invega injection.? He reports that he has had significant allergies but he cannot remember them all in his chart lists Clozaril Depakote and Haldol.? He reports that after being off of his Invega shot for the past 2 months things started spiraling out of control.? He presented to the emergency department and was placed on a 96-hour hold with reports of suicidal intent.? Which he continues to endorse.? We discussed the risks benefits and alternatives of restarting his Invega as well as restarting his Celexa.? He reports having cirrhosis of the liver and cutting down significantly on his drinking but he does endorse continuing to drink.? He reports he had his abdomen drained as recently as Saturday.? He reports that it was recommended that he come to the hospital because he was having blackouts and then having dangerous behavior during those times.? He reports being hospitalized psychiatrically possibly 50 times in the past.? He smokes about 2 packs of cigarettes a day, reports he drinks whiskey mixed with sweet tea daily.? There is a gun in the home and he had in fact reportedly shot 1 off prior to coming to the hospital. Per his 12/17/2021 [facility] inpatient psychiatric evaluation: History of Present Illness Reinaldo Flores is a 46 year old male with a history of Schizophrenia and Alcohol Dependence admitted on 96 hour hold as he had reported that he made a decision to discuss his dream with someone and it was blown out of proportion.? He reports that he was unable to leave the emergency department because he would not contract for safety and give up his guns.? Reinaldo reports that his was scared about something he said and it was reported in [facility]adavit that Reinaldo had reported thoughts to blow his head off with a gun.? He reports significant alcohol use for all my life. and reports drinking a 1/2 gallon of alcohol daily for several years.? He reports past history of schizophrenia and reports that the voices have been controlled by his medication and reports that he has had violent thoughts to hurt others in the past. ? He endorsed a history of alcohol withdrawal symptoms, include seizures, blackouts and shakes. Past Psychiatric History: Is notable for multiple inpatient psychiatric hospitalizations.? He reports last being admitted at [facility] in [facility] for inpatient he reports history of alcohol dependence, schizophrenia and? traumatic brain injury.? He was last seen at his outpatient appointment 3 days ago at [facility] in [facility]Followed by Dr. Bustamante in [facility]. Hx of multiple psychiatric medication trials: zyprexa, valium, campral, naltrexone, Current medications: invega sustenna IM, Substance abuse hx: reports misuse of stimulants in the past but reports active use of alcohol for over 20 years with longest period of abstinence was 1 year. 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 Meds Home Medications and Allergies Home Medications Medication Instructions Recorded Confirmed Last Taken Type folic acid 1 mg tablet 1 mg PO DAILY 30 days #30 tabs 04/16/22 06/06/22 05/17/22 09:00 Rx pantoprazole 40 mg tablet,delayed 40 mg PO DAILY #30 tabs 04/29/22 06/06/22 05/17/22 09:00 Rx release lactulose 20 gram/30 mL oral 30 g (45 mL) PO TID 30 days #4,050 05/21/22 06/06/22 05/27/22 Rx solution mL paliperidone palmitate 234 mg/1.5 234 mg (1.5 mL) IM Q30D #1.5 mL 05/21/2205/11 2 Weeks Ago Rx mL intramuscular syringe (Invega ~05/14/22 Sustenna) thiamine mononitrate (vit B1) 100 100 mg PO DAILY 30 days #30 tabs 05/21/22 06/06/22 1 Month Ago Rx mg tablet (Vitamin B-1 ~04/28/22 (mononitrate)) lorazepam 1 mg tablet (Ativan) 1 mg PO Q8H PRN alcohol withdrawal 06/05/22 06/06/22 Unknown Rx #10 tabs citalopram 20 mg tablet 20 mg PO DAILY 06/06/22 06/06/22 Unknown History magnesium L-lactate 84 mg 84 mg PO BID 06/06/22 06/06/22 Unknown History tablet,extended release (Magtab) spironolactone 25 mg tablet 25 mg PO BID 06/06/22 06/06/22 Unknown History Allergies Allergy/AdvReac Type Severity Reaction Status Date / Time clozapine [From Clozaril] AdvReac Severe Lowered Verified 06/06/22 09:53 his WBC he says divalproex sodium AdvReac Severe swelling Verified 06/06/22 09:53 [From Depakote] haloperidol [From Haldol] AdvReac Severe swelling Verified 06/06/22 09:53 nitroglycerin AdvReac Severe Stopped Verified 06/06/22 09:53 heart Bee stings Allergy Severe Swelling & Uncoded 06/05/22 09:36 breathing problems, Anaphylactic shock Current Medications Current Medications Generic Name Dose Route Start Last Admin Trade Name Freq PRN Reason Stop Dose Admin Folic Acid 1 mg 06/06/22 09:00 06/06/22 09:01 Folic Acid 1 Mg Tablet PO 1 mg DAILY SAMANTA Administration Levetiracetam 750 mg 06/06/22 09:00 06/06/22 09:01 Levetiracetam 500 Mg Tablet PO 750 mg BID SAMANTA Administration Magnesium Oxide 200 mg 06/06/22 09:00 06/06/22 09:01 Magnesium Oxide 400 Mg Tablet PO 200 mg DAILY SAMANTA Administration Pantoprazole Sodium 40 mg 06/06/22 09:00 06/06/22 09:[address] 40 Mg Tablet PO 40 mg DAILY SAMANTA Administration Thiamine Mononitrate 100 mg 06/06/22 09:00 06/06/22 09:01 Thiamine 100 Mg Tablet PO 100 mg DAILY SAMANTA Administration PFSH NPU PFSH: Medical History Acne rosacea ALC (alcoholic liver cirrhosis) Alcohol dependence, uncomplicated Bipolar disorder Cerebrovascular accident (CVA) Controlled diabetes mellitus with hyperglycemia Current smoker DM neuropathy, painful Essential (primary) hypertension History of alcohol abuse daily use of hard liquor History of coronary artery disease History of CVA (cerebrovascular accident) 2009 Right side weakness due to a bleed History of memory loss History of schizophrenia Mixed hyperlipidemia Nicotine dependence, cigarettes, uncomplicated Psoriasis Psychiatric care Seizure disorder Surgical History History of colonoscopy with polypectomy 2015 History of esophagogastroduodenoscopy (EGD) History of eye surgery History of heart artery stent Family History Other Dementia Diabetes Hypertension Lung disease Psychiatric illness Stroke Denies family history of Chronic kidney disease (CKD) Anesthesia complication Bleeding disorder Cancer Social History Smoking and tobacco status: current every day smoker cigarettes Packs smoked per day: 2.5 Years cigarettes smoked: 38 Second hand smoke exposure: Yes Smoking risk assessment/counseling performed?: Yes Alcohol intake: current Alcohol intake frequency: 0-2 Drinks per Day Alcohol type: hard liquor Desire information about alcohol rehabilitation?: No Counseling given: No Desire information about substance/drug rehabilitation?: No Counseling given: No Adopted: No Caregiver/support person: Yes Lives independently: No Household members: friend(s) and caregiver Housing: Manufactured/Mobile home Marital status: Number of children: 8 service: No Current occupational status: disabled Pets and animals: Yes History of recent travel: Yes Details: month an a half ago Out of state: Yes Current gender identity: Male Mental Status Exam MSE Comments: This is an obese white male with hospital scrubs on with intermittent eye contact and poor grooming lying in the ICU bed. No abnormal movements except for mild psychomotor agitation and mild resting tremor. He was cooperative with exam in no acute distress. Speech was more normal rate and volume. Mood described as fine. affect was irritable and incongruent. Thought process:linear, logical Thought content: Patient endorsed homicidal ideation with plan to shoot his ex- with gun, there were no delusions reported or no nereyda, he denied any auditory or visual hallucinations currently. Attention and concentration appeared intact and memory was mostly reliable but none were formally tested. The alert and oriented x3. Insight is impaired. His impulse control is impaired, His judgment is feeble. Vitals/I&O/Wt Last Vital Signs Temp 98.7 F 06/06/22 04:00 Pulse 92 06/06/22 15:00 Resp 25 H 06/06/22 15:00 BP 96/64 06/06/22 15:00 Pulse Ox 89 L 06/06/22 15:00 O2 Del Method 06/06/22 15:00 O2 Flow Rate 4 06/06/22 13:00 06/06/22 06/06/22 06/06/22 06:59 14:59 22:59 Intake Total 100 / 100 390 / 390 100 / 490 Output Total 1725 / 1725 Balance 100 / 100 -1335 / -1335 100 / -1235 Weight last 48 hrs Weight 96.388 kg Weight 96.615 kg Data NPU 06/06/22 02:16 06/06/22 02:16 A&P Assessment and plan (1) Schizophrenia: (2) Auditory hallucinations: (3) Diabetic feet: (4) Alcohol dependence, uncomplicated: (5) Alcohol use disorder, severe, dependence: (6) Seizure disorder: (7) Depression with suicidal ideation: (8) Homicidal ideation: Plan 46 year old white male with reported history of traumatic brain injury, schizophrenia and alcohol dependence admitted to ICU in alcohol withdrawal with cirrosis currently endorsing clear homicidal ideation with plan. 1. Restart other current medications. Invega Sustenna maintenance dose due on 06/22/21. 2. Encourage patient in milieu/group/individual therapy 3. Continue q 15 minutes checks for safety. 4. Encourage sober living treatment outside of discharge at the highest level of care to which he is willing to commit. 5. Appreciate any help regarding medicine team regarding cirrosis, 6. Admit to NPU from ICU when stabilized, on a 96 hour hold. . Involuntary Hold Information 96 Hour Hold: 96 Hour Involuntary Admission: Yes 96 Hour Hold Ending Date: 05/21/22 96 Hour Hold Ending Time: 20:31 Attestations NPU Medical Necessity Statement*: Inpatient psychiatric hospitalization is medically necessary and the clinically appropriate intervention at this time. We will monitor medications and make changes as indicated. Patient will be in the hospital for over 2 midnights. His likely length of stay is 5 to 7 days. Coding Level of Care Code New Pt Acute Biology Internship for Chg Fwd Patient Type New History Problem Focused Exam Problem Focused Medical Decision Making Straight Forward Diagnoses Schizophrenia F20.9 Auditory hallucinations R44.0 Diabetic feet E11.8 Alcohol dependence, uncomplicated F10.20 Alcohol use disorder, severe, dependence F10.20 Seizure disorder G40.909 Depression with suicidal ideation F32.A; R45.851 Homicidal ideation R45.850
--- NOTE | 2022-06-06 19:53 | US_ITS ---
WS: [id number] ULTRASOUND-GUIDED PARACENTESIS CLINICAL INFORMATION: therapeutic paracentesis COMPARISON: None. Procedure Informed consent: The risks, benefits, and alternatives of the procedure were discussed with the juan antonio ent. Verbal and written consent was obtained. Timeout: A timeout was performed to confirm the correct patient, procedure, and site. Preparation: A suitable skin site was identified. The patient was prepped and draped in usual sterile fashion. Lidocaine 1% was used for local anesthesia. Catheter: 4 [employer] One[employer] catheter. Side: LEFT Lower quadrant. Fluid Volume: 7000 ml Color: Clear yellow DISPOSITION: Discarded safely. Complications: None. US/US paracentesis abd w [id number] IMPRESSION: Uncomplicated ultrasound-guided paracentesis. Removal of 7000 cc clear yellow ascites
[2022-06-07] VITALS (10 sets, daily range): BP systolic 88–116; BP diastolic 53–74; PULSE 85–106; RESP 16–37; TEMP 37.3; O2SAT 88–97
[2022-06-07] MEDS: nicotine 4 mg lozenge MUCOUS MEM ×5 (07:53→23:28)
[2022-06-07] MEDS: levoFLOXacin 750 mg Tablet PO (07:53)
[2022-06-07 09:05] LABS: Alanine Aminotransferase 12 U/L (0-41); Albumin Level 2.9 g/dL (3.5-5.2); Alkaline Phosphatase 77 U/L (40-130); Anion Gap 10.5 (5-19); Aspartate Amino Transferase 35 U/L (0-40); Blood Urea Nitrogen 4 mg/dL (6-20); Calcium 8.4 mg/dL (8.5-10.5); Carbon Dioxide 25 mmol/L (22-29); Chloride 102 mmol/L (98-107); Globulin 3.3 g/dL (1.3-4.6); Glomerular Filtration Rate 143.8 mL/min (90-130); Glucose 120 mg/dL (65-115); Osmolality Calculated 276 mOsm/kg (285-295); Potassium 3.5 mmol/L (3.5-5.1); Sodium 134 mmol/L (136-145); Total Bilirubin 1.1 mg/dL (0.15-1.2); Total Protein 6.2 g/dL (6.6-8.7)
[2022-06-07] MEDS: magnesium oxide 400 mg tablet 200 MG PO (09:33)
[2022-06-07] MEDS: pantoprazole DR 40 mg Tablet PO (09:34)
[2022-06-07] MEDS: multivitamin therapeutic Tablet 1 TAB PO (09:34)
[2022-06-07] MEDS: thiamine 100 mg Tablet PO (09:34)
[2022-06-07] MEDS: levETIRAcetam 500 mg Tablet 750 MG PO ×2 (09:34→18:17)
[2022-06-07] MEDS: folic acid 1 mg Tablet PO (09:34)
--- NOTE | 2022-06-07 09:59 | W.PM.NPUPNS ---
Subjective NPU Subjective: Reinaldo is a 46-year-old white male with a history of cluster B personality traits, alcohol dependence and schizophrenia currently having active problems with liver cirrhosis and ascites who was admitted to the neuropsychiatric unit due to homicidal threats towards his ex . The patient had remained provocative with his staff and had endorsed that he had a plan to shoot her with a gun after breaking into her house. The patient on interview had denied this stating that he was fine that he knew where she lived but he had no thoughts of hurting herself despite stating something differently just 24 hours before. He had reported significant distress and pain associated with his turgid and painful abdomen. He minimized any feelings of hopelessness but continued to report his desire to drink despite its clear adverse consequences. Mental Status Exam MSE Comments: This is an obese white male with hospital scrubs on with intermittent eye contact and poor grooming lying in his bed. He appeared in significant distress as he was rocking back and forth on his bed. He was cooperative with exam in no acute distress. Speech was more normal rate and volume. Mood described as fine. affect was irritable and incongruent. Thought process:linear, logical Thought content: Patient minimized homicidal ideation and minimized any suicidal ideation as well. There were no delusions reported or noted, he denied any auditory or visual hallucinations currently. Attention and concentration appeared intact and memory was mostly reliable but none were formally tested. The alert and oriented x3. Insight is impaired. His impulse control is impaired, His judgment is feeble. Vitals/I&O/Wt Last Vital Signs Temp 98.5 F 06/06/22 15:56 Pulse 106 H 06/07/22 16:03 Resp 16 06/07/22 06:00 BP 108/74 06/07/22 16:03 Pulse Ox 92 06/07/22 16:03 O2 Del Method 06/07/22 16:03 O2 Flow Rate 4 06/06/22 20:00 Weight last 48 hrs Weight 96.388 kg Data NPU 06/07/22 14:15 06/07/22 14:15 A&P Assessment and plan (1) Schizophrenia: (2) Auditory hallucinations: (3) Diabetic feet: (4) Alcohol dependence, uncomplicated: (5) Alcohol use disorder, severe, dependence: (6) Seizure disorder: (7) Depression with suicidal ideation: (8) Homicidal ideation: Plan 46 year old white male with reported history of traumatic brain injury, schizophrenia and alcohol dependence admitted to ICU in alcohol withdrawal with cirrosis currently endorsing clear homicidal ideation with plan. 1. Continue current medications. Invega Sustenna maintenance dose due on 06/22/21. 2. Encourage patient in milieu/group/individual therapy 3. Continue q 15 minutes checks for safety. 4. Encourage sober living treatment outside of discharge at the highest level of care to which he is willing to commit. 5. Appreciate any help regarding medicine team regarding cirrosis, monitor for seizures. 6. Investigate and attempt to contact Mr. Flores's target for homicidal threats. . Involuntary Hold Information 96 Hour Hold: 96 Hour Involuntary Admission: Yes 96 Hour Hold Ending Date: 06/12/22 96 Hour Hold Ending Time: 14:00 Attestations NPU Medical Necessity Statement*: Inpatient psychiatric hospitalization is medically necessary and the clinically appropriate intervention at this time. We will monitor medications and make changes as indicated. His likely length of stay is 5 to 7 days. 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
[2022-06-07] MEDS: ondansetron 4 MG Tablet PO (11:37)
[2022-06-07] MEDS: LORazepam 2 mg/mL INJ 1 mL IM (14:00)
[2022-06-07] MEDS: PHENobarbital 32.4 mg Tablet 97.2 MG PO ×3 (14:20→20:09)
[2022-06-07 14:32] LABS: Basophils % 0.5 %; Eosinophils # 0.2 10^3/uL (0.0-0.8); Eosinophils % 3.3 %; Hematocrit 42.8 % (42.0-52.0); Hemoglobin 14.6 g/dL (11.7-16.6); Lymphocytes # 1.1 10^3/uL (0.8-4.8); Lymphocytes % 15.2 %; Mean Corpuscular HGB Conc 34.1 g/dL (30.0-36.0); Mean Corpuscular Hemoglobin 34.4 pg (28.0-34.0); Mean Corpuscular Volume 100.9 fl (80-94); Mean Platelet Volume 10.4 fL (7.4-10.4); Monocytes # 0.6 10^3/uL (0.2-0.9); Monocytes % 7.9 %; Neutrophils # 5.32 10^3/uL (1.8-7.7); Neutrophils % 72.8 %; Nucleated Red Blood Cells % 0 %; Platelet Count 151 10^3/cmm (130-400); Red Blood Count 4.24 10^6/uL (4.1-5.3); Red Cell Distribution Width 11.9 % (12.1-15.1); White Blood Count 7.3 10^3/uL (4.0-10.0)
[2022-06-07] MEDS: LORazepam 2 mg/mL INJ 1 mL IVP ×3 (14:40→23:57)
--- NOTE | 2022-06-07 14:42 | PM.PN ---
Subjective Subjective: Patient had a rapid response, he was transferred to [facility] however needed to be transferred to ICU for recurrent breakthrough seizures, his seizure episode would only last 15 to 30 seconds, he is responding well to Ativan, he has been given Ativan in the NPU Vitals/I&O/Wt Last Vital Signs Temp 98.5 F 06/06/22 15:56 Pulse 68 06/06/22 15:56 Resp 16 06/07/22 06:00 BP 136/81 06/06/22 15:56 Pulse Ox 95 06/06/22 15:56 O2 Del Method 06/06/22 16:32 O2 Flow Rate 4 06/06/22 20:00 06/06/22 06/07/22 06/07/22 22:59 06:59 14:59 Intake Total 100 / 490 Balance 100 / -1235 Weight last 48 hrs Weight 96.388 kg Weight 96.615 kg Physical Exam Narrative: Patient was awake and alert No postictal confusion Anxious and restless Awake and alert Able to answer my questions No signs of stroke Abdomen nontender on superficial palpation, mild tenderness on deep palpation, awake and alert no signs of encephalopathy Fluid overloaded Patient is answering questions appropriately Awake and alert GCS 15 Doing well on room air Data 06/07/22 14:15 06/07/22 08:26 A&P Assessment and plan (1) Homicidal ideation: (2) Homicidal ideation: (3) Alcohol withdrawal seizure: (4) Ascites: (5) Chronic hyponatremia: (6) Alcohol dependence: Plan Rapid response was called for breakthrough seizures in Neuropsych Unit, he had to be transferred to ICU when 2 episodes of breakthrough seizures noted on [facility] Transfer to ICU, continue phenobarbital, thiamine and folic acid We will put him on ceftriaxone for SBP prophylaxis Afebrile, Homicidal ID patient endorsed by the patient, he will go back to Neuropsych Unit once stabilized Full code Low-salt diet Full code Attestations Medical Necessity Statement*: Transferred to ICU Time Spent in Patient Care: 30 Coding Level of Care Code Acute Visual Effects Editor for [facility] Fwd Diagnoses Homicidal ideation R45.850 Homicidal ideation R45.850 Alcohol withdrawal seizure F10.939; R56.9 Ascites R18.8 Chronic hyponatremia E87.1 Alcohol dependence F10.20
[2022-06-07 14:57] LABS: Alanine Aminotransferase 15 U/L (0-41); Albumin Level 2.9 g/dL (3.5-5.2); Alkaline Phosphatase 95 U/L (40-130); Anion Gap 11.4 (5-19); Aspartate Amino Transferase 38 U/L (0-40); Blood Urea Nitrogen 4 mg/dL (6-20); Calcium 8.7 mg/dL (8.5-10.5); Carbon Dioxide 26 mmol/L (22-29); Chloride 99 mmol/L (98-107); Globulin 3.5 g/dL (1.3-4.6); Glomerular Filtration Rate 143.8 mL/min (90-130); Glucose 136 mg/dL (65-115); Osmolality Calculated 275 mOsm/kg (285-295); Potassium 3.4 mmol/L (3.5-5.1); Sodium 133 mmol/L (136-145); Total Bilirubin 1.1 mg/dL (0.15-1.2); Total Protein 6.4 g/dL (6.6-8.7)
[2022-06-07 15:55] LABS: Glucose Point of Care 129 mg/dL (70-110)
--- NOTE | 2022-06-07 17:43 | PC.NURSE ---
Patient was brought to ICU in bed without any belongings. NPU called and stated his things are still down there. Bed rails are padded and patient stated he is seeing stars and dots . No other symptoms noted.
[2022-06-08] VITALS (35 sets, daily range): BP systolic 88–124; BP diastolic 52–85; PULSE 65–104; RESP 14–34; TEMP 36.8–37.6; O2SAT 89–96
[2022-06-08] MEDS: PHENobarbital 32.4 mg Tablet 97.2 MG PO ×4 (03:01→21:18)
[2022-06-08] MEDS: nicotine 4 mg lozenge MUCOUS MEM ×4 (03:05→17:19)
[2022-06-08] MEDS: LORazepam 2 mg/mL INJ 1 mL IVP (04:39)
[2022-06-08] MEDS: levoFLOXacin 750 mg Tablet PO (05:01)
--- NOTE | 2022-06-08 07:17 | PC.NURSE ---
1929 patient was assessed and found to be A&Ox4. at 1944 patient sitter called this RN to room. Patient was very lethargic and was disoriented upon waking. MD notified and told this RN to give phenobarbital early. per veronica IV ativan was given at 2017. 2047 patient appeared to have another seizure. MD was called. orders were received for IV keppra. patient mentation changed through out shift. patient was able to say name and , but time and place varied throughout shift.
[2022-06-08] MEDS: levETIRAcetam 500 mg Tablet 1000 MG PO ×2 (08:30→17:44)
[2022-06-08] MEDS: multivitamin therapeutic Tablet 1 TAB PO (08:30)
[2022-06-08] MEDS: thiamine 100 mg Tablet PO (08:30)
[2022-06-08] MEDS: folic acid 1 mg Tablet PO (08:30)
[2022-06-08] MEDS: magnesium oxide 400 mg tablet 200 MG PO (08:30)
[2022-06-08] MEDS: pantoprazole DR 40 mg Tablet PO (08:31)
[2022-06-08] MEDS: lacosamide 50 mg Tablet 100 MG PO ×2 (08:33→17:44)
[2022-06-08 09:15] LABS: Levetiracetam Immunoassy 15.9 mcg/mL (6.0-46.0)
[2022-06-08] MEDS: LORazepam 2 mg Tablet PO ×2 (09:28→12:57)
--- NOTE | 2022-06-08 10:46 | P.PN_ITS ---
Subjective Subjective: Overnight another breakthrough seizure episode noticed public relations player give extra dose of Keppra This morning patient is awake and alert Afebrile Mild hypokalemia Not complaining of active pain I have added Vimpat to Keppra Continue phenobarbital He does have IV Ativan for as needed use for seizures Vitals/I&O/Wt Last Vital Signs Temp 99.7 F H 06/08/22 03:45 Pulse 92 06/08/22 08:00 Resp 16 06/08/22 08:00 BP 112/72 06/08/22 06:00 Pulse Ox 93 06/08/22 08:00 O2 Del Method 06/08/22 08:00 O2 Flow Rate 2 06/07/22 21:00 FiO2 2 06/08/22 08:00 06/07/22 06/08/22 06/08/22 22:59 06:59 14:59 Intake Total 130 / 130 318 / 448 240 / 240 Output Total 200 / 200 350 / 550 Balance -70 / -70 -32 / -102 240 / 240 Physical Exam Narrative: Patient is awake and alert No signs of stroke Abdomen soft, distended, ascites, S1, S2 Hemodynamically stable Doing well on room air Awake alert GCS 15 Doing well on room air Pleasant cooperative Lower extremity no edema Data 06/07/22 14:15 06/07/22 14:15 A&P Assessment and plan (1) Homicidal ideation: (2) Alcohol withdrawal seizure: (3) Ascites: (4) Chronic hyponatremia: (5) Alcohol dependence: (6) Hypokalemia: (7) Schizophrenia: Plan Recurrent breakthrough seizures for alcohol withdrawal No signs of stroke CT scan of head at admission did not show any bleed I have added Vimpat to Keppra We will keep him on phenobarbital every 6 hours He does have IV Ativan if needed for breakthrough seizures Hypokalemia: Repleted Status post paracentesis 10 L were removed, patient has remained afebrile, no significant leukocytosis, I will keep him on ceftriaxone empirical coverage for SBP No sign of hepatic encephalopathy Homicidal ideation History of schizophrenia He will be transferred back to neuropsychiatric unit once seizure-free for at least 24 to 30 hours I will let him have low-salt diet Full code Attestations Medical Necessity Statement*: Continue ICU management for at least next 24 hours Time Spent in Patient Care: 40 Coding Level of Care Code Acute Ski Binding Fitter And Repairer for Chg Fwd Diagnoses Homicidal ideation R45.850 Alcohol withdrawal seizure F10.939; R56.9 Ascites R18.8 Chronic hyponatremia E87.1 Alcohol dependence F10.20 Hypokalemia E87.6 Schizophrenia F20.9
[2022-06-08] MEDS: potassium chloride ER 20 mEq Tablet 40 MEQ PO (11:30)
[2022-06-08] MEDS: cefTRIAXone 2,000 MG in sodium chloride 0.9% (plus) 50 ML 100 MG IV (11:30)
--- NOTE | 2022-06-08 16:17 | PC.NURSE ---
visited during visitation hour from [phone]. At end of visit entered hallway outside of patients room and verbalized with a raised voice that she needed to know why her had so many appointments with the GI lab. She stated He just can't take all of this, these tests. Appointment cards viewed by this nurse and attempted to calm . Call placed to GI lab, however lab was closed at this time. notified of this. began yelling, stating, Im tired of getting the run around from all of you, you want him to just ! This nurse assured her that staff and providers do not want that and that his provider deemed future appointments necessary for his care. then stated, His fucking doctor is on vacation. then left ICU.
--- NOTE | 2022-06-08 19:05 | W.PM.NPUPNS ---
Subjective NPU Subjective: Reinaldo is a 46-year-old white male with a history of cluster B personality traits, alcohol dependence and schizophrenia currently having active problems with liver cirrhosis and ascites who was admitted to the neuropsychiatric unit due to homicidal threats towards his ex . Patient was seen in the ICU today. He had reported that he has been in significant pain. He continued to minimize any threats that he had made to his ex-. He had continued to have brief episodes of seizures despite the increase in Keppra. The patient reported no desire to use alcohol at this time. He denied any auditory hallucinations at this time. Mental Status Exam MSE Comments: This is an obese white male with hospital scrubs on with intermittent eye contact and poor grooming lying in his ICU bed. He appeared in significant distress as he was rocking back and forth on his bed. He was cooperative with exam in no acute distress and appeared to be in some pain. His speech was normal in rate and volume. Mood described as not good. affect was irritable and congruent. Thought process:linear, logical Thought content: Patient minimized homicidal ideation and minimized any suicidal ideation as well. There were no delusions reported or noted, he denied any auditory or visual hallucinations currently. Attention and concentration appeared intact and memory was mostly reliable but none were formally tested. The alert and oriented x3. Insight is impaired. His impulse control is impaired, His judgment is feeble. Vitals/I&O/Wt Last Vital Signs Temp 98.9 F 06/08/22 14:00 Pulse 94 06/08/22 15:51 Resp 27 H 06/08/22 14:00 BP 118/80 06/08/22 14:00 Pulse Ox 91 06/08/22 14:00 O2 Del Method 06/08/22 14:00 O2 Flow Rate 2 06/08/22 12:30 FiO2 2 06/08/22 08:00 06/08/22 06/08/22 06/08/22 06:59 14:59 22:59 Intake Total 318 / 448 770 / 770 957 / 1727 Output Total 350 / 550 400 / 400 625 / 1025 Balance -32 / -102 370 / 370 332 / 702 Data NPU 06/07/22 14:15 06/07/22 14:15 A&P Assessment and plan (1) Schizophrenia: (2) Auditory hallucinations: (3) Diabetic feet: (4) Alcohol dependence, uncomplicated: (5) Alcohol use disorder, severe, dependence: (6) Seizure disorder: (7) Depression with suicidal ideation: (8) Homicidal ideation: Plan 46 year old white male with reported history of traumatic brain injury, schizophrenia and alcohol dependence admitted to ICU in alcohol withdrawal with cirrosis currently endorsing clear homicidal ideation with plan. 1. Continue current medications. Invega Sustenna maintenance dose due on 06/22/21. 2. Encourage patient in milieu/group/individual therapy 3. Continue q 15 minutes checks for safety. 4. Encourage sober living treatment outside of discharge at the highest level of care to which he is willing to commit. 5. Eagerly awaiting transfer back to NPU at this time once stabilized. 6. Investigate and attempt to contact Mr. Flores's target for homicidal threats. . Involuntary Hold Information 96 Hour Hold: 96 Hour Involuntary Admission: Yes 96 Hour Hold Ending Date: 06/12/22 96 Hour Hold Ending Time: 14:00 Attestations NPU Medical Necessity Statement*: Inpatient psychiatric hospitalization is medically necessary and the clinically appropriate intervention at this time once stabilized in ICU. We will monitor medications and make changes as indicated. His likely length of stay is 5 to 7 days. Coding Level of Care Code Established Pt Acute Code Enforcement Inspector for [facility] Patient Type Established History Problem Focused Exam Problem Focused Medical Decision Making Straight Forward Diagnoses Schizophrenia F20.9 Auditory hallucinations R44.0 Diabetic feet E11.8 Alcohol dependence, uncomplicated F10.20 Alcohol use disorder, severe, dependence F10.20 Seizure disorder G40.909 Depression with suicidal ideation F32.A; R45.851 Homicidal ideation R45.850
[2022-06-08] MEDS: hyDROXYzine 25 mg Capsule 50 MG PO (21:18)
[2022-06-09] VITALS (38 sets, daily range): BP systolic 90–125; BP diastolic 56–85; PULSE 68–115; RESP 14–37; TEMP 36.6–37.1; O2SAT 86–96
[2022-06-09] MEDS: nicotine 4 mg lozenge MUCOUS MEM (01:26)
[2022-06-09] MEDS: LORazepam 2 mg Tablet PO ×2 (01:33→15:58)
[2022-06-09] MEDS: PHENobarbital 32.4 mg Tablet 97.2 MG PO ×4 (03:51→21:41)
[2022-06-09] MEDS: LORazepam 2 mg/mL INJ 1 mL IVP (04:47)
[2022-06-09 04:52] LABS: Basophils % 0.6 %; Eosinophils # 0.4 10^3/uL (0.0-0.8); Eosinophils % 6.4 %; Hematocrit 40.9 % (42.0-52.0); Hemoglobin 13.8 g/dL (11.7-16.6); Lymphocytes # 1.4 10^3/uL (0.8-4.8); Lymphocytes % 21.9 %; Mean Corpuscular HGB Conc 33.7 g/dL (30.0-36.0); Mean Corpuscular Hemoglobin 34.1 pg (28.0-34.0); Mean Platelet Volume 10.5 fL (7.4-10.4); Monocytes # 0.7 10^3/uL (0.2-0.9); Monocytes % 10.6 %; Neutrophils # 3.87 10^3/uL (1.8-7.7); Neutrophils % 60.2 %; Nucleated Red Blood Cells % 0 %; Platelet Count 151 10^3/cmm (130-400); Red Blood Count 4.05 10^6/uL (4.1-5.3); White Blood Count 6.4 10^3/uL (4.0-10.0)
--- NOTE | 2022-06-09 07:10 | PC.NURSE ---
Bedside report complete with NATHALY Finch.
--- NOTE | 2022-06-09 08:43 | XRR_ITS ---
PROCEDURE INFORMATION: Exam: XR Chest Exam date and time: 06/09/2022 9:08 AM Age: 46 years old Clinical indication: Shortness of breath; Additional info: Possible pneumonia TECHNIQUE: Imaging protocol: Radiologic exam of the chest. Views: 1 view. COMPARISON: CR XR chest 1V portable [id number] 06/05/2022 12:12 PM FINDINGS: Lungs: Low lung volumes. Left infrahilar/retrocardiac consolidation. Remainder of the lung parenchyma is clear. Pleural spaces: No pneumothorax. No pleural effusion. Heart/Mediastinum: The cardiomediastinal silhouette is within normal limits. Bones/joints: Unremarkable. XR/XR chest 1V portable [id number] IMPRESSION: Left infrahilar/retrocardiac consolidation, may be consistent with atelectasis versus pneumonia. Remainder of the lung parenchyma is clear.
--- NOTE | 2022-06-09 08:57 | PC.SOCIAL ---
IMM update IMM not updated as patient is on a 96 hour hold at this time until 06/12/21 @ [address] Mahan documentation.
[2022-06-09] MEDS: lacosamide 50 mg Tablet 100 MG PO ×2 (09:08→18:26)
[2022-06-09] MEDS: pantoprazole DR 40 mg Tablet PO (09:08)
[2022-06-09] MEDS: multivitamin therapeutic Tablet 1 TAB PO (09:08)
[2022-06-09] MEDS: magnesium oxide 400 mg tablet 200 MG PO (09:08)
[2022-06-09] MEDS: folic acid 1 mg Tablet PO (09:09)
[2022-06-09] MEDS: thiamine 100 mg Tablet PO (09:09)
[2022-06-09] MEDS: levETIRAcetam 500 mg Tablet 1000 MG PO ×2 (09:09→18:26)
--- NOTE | 2022-06-09 10:26 | PM.PN ---
Subjective Subjective: This morning patient is eating breakfast Still complaining abdominal pain however he looks pretty comfortable As per the nursing staff no overnight seizures I would like to watch him until this evening before making decision whether he is safe to be transferred to neuropsych again Noticed low blood pressure Vitals/I&O/Wt Last Vital Signs Temp 98.6 F 06/09/22 01:00 Pulse 104 H 06/09/22 08:57 Resp 18 06/09/22 08:57 BP 92/63 06/09/22 07:30 Pulse Ox 94 06/09/22 08:57 O2 Del Method 06/09/22 08:57 O2 Flow Rate 2 06/08/22 20:00 FiO2 4 06/09/22 08:57 06/08/22 06/09/22 06/09/22 22:59 06:59 14:59 Intake Total 957 / 1727 Output Total 775 / 1175 325 / 1500 Balance 182 / 552 -325 / 227 Physical Exam Narrative: Patient is awake and alert Eating breakfast Abdomen is not severely distended however ascites positive Afebrile No active seizure Currently requiring 3 L nasal cannula S1, S2 sinus tachycardia Data 06/09/22 04:27 06/07/22 14:15 A&P Assessment and plan (1) Homicidal ideation: (2) Alcohol withdrawal seizure: (3) Ascites: (4) Alcohol dependence: Plan No seizures in last 48 hours Currently on Keppra and Vimpat Low blood pressure noted we will give a dose of albumin If stable by tonight I will be able to transfer him back to neuropsychiatric unit on Saturday He will stay on one-to-one 96-hour hold Continue ceftriaxone Afebrile Continue thiamine folic acid and phenobarbital for any alcohol withdrawal related symptoms No recurrence of seizure Attestations Medical Necessity Statement*: Transfer later today versus tomorrow Time Spent in Patient Care: 30 Critical Care Time: 30 Coding Level of Care Code Acute Night Time Nanny for [facility] F[facility] Diagnoses Homicidal ideation R45.850 Alcohol withdrawal seizure F10.939; R56.9 Ascites R18.8 Alcohol dependence F10.20
[2022-06-09] MEDS: cefTRIAXone 2,000 MG in sodium chloride 0.9% (plus) 50 ML 100 MG IV (11:05)
--- NOTE | 2022-06-09 11:40 | PC.NURSE ---
Pt incontinent of urine. Pericare provided. Absorbent briefs and green paper scrubs provided. Pt up to chair in room, 2 assist. Pt does not follow safety instructions well.
--- NOTE | 2022-06-09 13:10 | PC.NURSE ---
Pt back to bed, 2 assist
--- NOTE | 2022-06-09 15:41 | W.PM.NPUPNS ---
Subjective NPU Subjective: Reinaldo is a 46-year-old white male with a history of cluster B personality traits, alcohol dependence and schizophrenia currently having active problems with liver cirrhosis and ascites who was admitted to the neuropsychiatric unit due to homicidal threats towards his ex . Patient was seen in the ICU today. He reports that he wants to go home on interview. He continued to deny having any thoughts of killing his ex- despite making statements earlier 2 days ago. Mental Status Exam MSE Comments: This is an obese white male with hospital scrubs on with intermittent eye contact and poor grooming lying in his ICU bed. He appeared in significant distress as he was rocking back and forth on his bed. He was cooperative with exam in no acute distress and appeared to be in some pain. His speech was normal in rate and volume. Mood described as bad. His affect was irritable and mood congruent. Thought process:linear, logical Thought content: Patient minimized homicidal ideation and minimized any suicidal ideation as well. There were no delusions reported or noted, he denied any auditory or visual hallucinations currently. Attention and concentration appeared intact and memory was mostly reliable but none were formally tested. The alert and oriented x3. Insight is impaired. His impulse control is impaired, His judgment is feeble. Vitals/I&O/Wt Last Vital Signs Temp 97.8 F 06/09/22 08:00 Pulse 102 H 06/09/22 15:00 Resp 22 H 06/09/22 15:00 BP 112/79 06/09/22 15:00 Pulse Ox 92 06/09/22 15:00 O2 Del Method 06/09/22 15:00 O2 Flow Rate 2 06/09/22 15:00 FiO2 4 06/09/22 08:57 06/09/22 06/09/22 06/09/22 06:59 14:59 22:59 Intake Total 850 / 850 Output Total 325 / 1500 250 / 250 Balance -325 / 227 600 / 600 Data NPU 06/09/22 04:27 06/07/22 14:15 A&P Assessment and plan (1) Schizophrenia: (2) Auditory hallucinations: (3) Diabetic feet: (4) Alcohol dependence, uncomplicated: (5) Alcohol use disorder, severe, dependence: (6) Seizure disorder: (7) Depression with suicidal ideation: (8) Homicidal ideation: Plan 46 year old white male with reported history of traumatic brain injury, schizophrenia and alcohol dependence admitted to ICU in alcohol withdrawal with cirrosis currently endorsing clear homicidal ideation with plan. 1. Continue current medications. Invega Sustenna maintenance dose due on 06/22/21. 2. Encourage patient in milieu/group/individual therapy 3. Continue q 15 minutes checks for safety. 4. Encourage sober living treatment outside of discharge at the highest level of care to which he is willing to commit. 5. Eagerly awaiting transfer back to NPU at this time once stabilized. 6. Investigate and attempt to contact Mr. Flores's target for homicidal threats. . Involuntary Hold Information 96 Hour Hold: 96 Hour Involuntary Admission: Yes 96 Hour Hold Ending Date: 06/12/22 96 Hour Hold Ending Time: 14:00 Attestations NPU Medical Necessity Statement*: Inpatient psychiatric hospitalization is medically necessary and the clinically appropriate intervention at this time once stabilized in ICU. We will monitor medications and make changes as indicated. His likely length of stay is 5 to 7 days. Coding Level of Care Code Established Pt Acute Clinical Laboratory Aide for [facility] Patient Type Established History Problem Focused Exam Problem Focused Medical Decision Making Straight Forward Diagnoses Schizophrenia F20.9 Auditory hallucinations R44.0 Diabetic feet E11.8 Alcohol dependence, uncomplicated F10.20 Alcohol use disorder, severe, dependence F10.20 Seizure disorder G40.909 Depression with suicidal ideation F32.A; R45.851 Homicidal ideation R45.850
[2022-06-09 16:44] LABS: Alanine Aminotransferase 11 U/L (0-41); Albumin Level 2.9 g/dL (3.5-5.2); Alkaline Phosphatase 55 U/L (40-130); Anion Gap 8.5 (5-19); Aspartate Amino Transferase 31 U/L (0-40); Blood Urea Nitrogen 4 mg/dL (6-20); Calcium 8.6 mg/dL (8.5-10.5); Carbon Dioxide 27 mmol/L (22-29); Chloride 103 mmol/L (98-107); Globulin 3.2 g/dL (1.3-4.6); Glomerular Filtration Rate 143.8 mL/min (90-130); Glucose 106 mg/dL (65-115); Osmolality Calculated 277 mOsm/kg (285-295); Potassium 3.5 mmol/L (3.5-5.1); Sodium 135 mmol/L (136-145); Total Bilirubin 0.9 mg/dL (0.15-1.2); Total Protein 6.1 g/dL (6.6-8.7)
--- NOTE | 2022-06-09 19:25 | PC.NURSE ---
Shift Note: Pt somnolent this shift. He has had no seizure activity this shift. He has had no aggressive behaviors. He has been able to answer the orientation questions appropriately most of the shift but he then will speak about seeing hotdogs. In the evening he asked for a rubber for his sandwich. His CIWA assessment only required intervention of ativan this afternoon with a score of 13 otherwise scores have been less than 10. He was continent and using urinal in am. In the afternoon he has been incontinent of urine. His urine is dark yellow to orange in color. His abdomen remains distended but he has no complains of discomfort or pain. He has been able to feed himself. Frequent safety and comfort rounds continue. Orders and/or nursing care completed as indicated. Patient monitored for response to intervention and treatment(s). Education provided includes vimpat, Phenobarbital, keppra, ceftriaxone, plan of care and progress. Patient and/or territory service representative verbalizes understanding of plan of care, progress and medications. Will continue to monitor.
--- NOTE | 2022-06-09 19:32 | PC.NURSE ---
Bedside report completed with NATHALY Hickman
[2022-06-10] VITALS (44 sets, daily range): BP systolic 88–129; BP diastolic 50–82; PULSE 68–111; RESP 15–33; TEMP 36.2–37; O2SAT 87–95
[2022-06-10] MEDS: PHENobarbital 32.4 mg Tablet 97.2 MG PO (03:45)
--- NOTE | 2022-06-10 06:05 | NUR.SHIFT ---
No seizure activity noted throughout shift. Patient required two person transfer assist due to somnolent state from bed to chair. Follows directions but require repetitive instructions. Remains confused, and difficult to understand due to mumbled speech. No outburst in behaviors throughout night.
[2022-06-10] MEDS: nicotine 4 mg lozenge MUCOUS MEM (07:50)
[2022-06-10] MEDS: nicotine 21 mg Patch 1 PATCH TRANSDERMA (07:50)
[2022-06-10] MEDS: levETIRAcetam 500 mg Tablet 1000 MG PO (08:41)
[2022-06-10] MEDS: magnesium oxide 400 mg tablet 200 MG PO (08:42)
[2022-06-10] MEDS: folic acid 1 mg Tablet PO (08:42)
[2022-06-10] MEDS: multivitamin therapeutic Tablet 1 TAB PO (08:42)
[2022-06-10] MEDS: thiamine 100 mg Tablet PO (08:42)
[2022-06-10] MEDS: pantoprazole DR 40 mg Tablet PO (08:42)
[2022-06-10] MEDS: lacosamide 50 mg Tablet 100 MG PO (08:42)
--- NOTE | 2022-06-10 10:30 | P.PN_ITS ---
Subjective Subjective: Patient is drowsy Shallow breaths, requiring 5 L of oxygen Chest x-ray concerning for pneumonia He is already on ceftriaxone Will add azithromycin I will discontinue phenobarbital, decrease the dose of Keppra, discontinue Vimpat Vitals/I&O/Wt Last Vital Signs Temp 97.1 F L 06/10/22 07:30 Pulse 107 H 06/10/22 09:00 Resp 31 H 06/10/22 09:00 BP 101/70 06/10/22 09:00 Pulse Ox 89 L 06/10/22 09:00 O2 Del Method 06/10/22 09:00 O2 Flow Rate 5 06/10/22 09:00 FiO2 4 06/09/22 20:00 06/09/22 06/10/22 06/10/22 22:59 06:59 14:59 Intake Total 300 / 1150 230 / 1380 600 / 600 Balance 300 / 900 230 / 1130 600 / 600 Physical Exam Narrative: Currently on 5 L nasal cannula Patient is drowsy Clinically fluid overloaded Abdomen distended Ascites positive Shallow breaths Able to follow commands, verbally redirectable No signs of stroke Eating breakfast Data 06/09/22 04:27 06/09/22 16:15 A&P Assessment and plan (1) Homicidal ideation: (2) Alcohol withdrawal seizure: (3) Ascites: (4) Alcohol dependence: (5) Alcohol withdrawal seizure: (6) Acute hypoxemic respiratory failure: (7) Pneumonia: Plan Acute hypoxic Concern for pneumonia, add azithromycin to ceftriaxone Request panculture Incentive spirometer Patient is drowsy taking shallow breaths, Currently requiring 5 L of oxygen Wean oxygen to room air he was not requiring oxygen I do believe this is related to shallow breaths Very drowsy, metabolic encephalopathy Check ammonia level Decrease the dose of Keppra, discontinue Vimpat and phenobarbital Breakthrough seizures related to alcohol withdrawal: Improved He cannot be transferred to neuropsych because of nasal cannula oxygen requirement I do believe if ICU bed is needed he can be transferred to [facility] Cardiac diet DVT prophylaxis 96-hour hold, he will go back to Neuropsych Unit once stable, paracentesis 7 L removed, required albumin intermittently for low blood pressure Attestations Medical Necessity Statement*: Continue ICU Critical Care Time: 30 Coding Level of Care Code Acute Numerical Tool Programmer for [facility] Nathaniel Diagnoses Homicidal ideation R45.850 Alcohol withdrawal seizure F10.939; R56.9 Ascites R18.8 Alcohol dependence F10.20 Alcohol withdrawal seizure F10.939; R56.9 Acute hypoxemic respiratory failure J96.01 Pneumonia J18.9
[2022-06-10 11:57] LABS: Ammonia 65 umol/L (16-60)
[2022-06-10] MEDS: cefTRIAXone 2,000 MG in sodium chloride 0.9% (plus) 50 ML 100 MG IV (12:55)
[2022-06-10] MEDS: levETIRAcetam 500 mg Tablet 750 MG PO (17:45)
--- NOTE | 2022-06-10 18:52 | PC.NURSE ---
Shift Note: Pt much more alert this shift without the phenobarbital. NO seizure activity this shift. He has had aggressive language this am Memo smash while he was standing up from chair and hitting fist on palm. Redirected pt, admin Nicotine patch and 1 lozenge and he calmed down. No further angry behavior. He did make an odd comment after waking from nap prior to lunch: Do not come too close to the force field. He has participated in his ADL more today. He is still incontinent of urine occasionally but has mostly used the BSC. His urine remains dark yellow to orage. His O2 needs improved as he became more alert. He is now on room air at end of shift., with O2 sats at 93% He started the day at 5lpm/NC. At this time he is sitting in chair sipping decaf coffee and smiling. Frequent safety and comfort rounds continue. Orders and/or nursing care completed as indicated. Patient monitored for response to intervention and treatment(s). Education provided includes Pnenobarbital, kppra, plan of care and progress.. Patient and/or patient account representative verbalized understanding of plan of care, progress and mediations. . Will continue to monitor.
--- NOTE | 2022-06-10 19:25 | PC.NURSE ---
Bedside report completed with NATHALY Bush
--- NOTE | 2022-06-10 19:51 | W.PM.NPUPNS ---
Subjective NPU Subjective: Reinaldo is a 46-year-old white male with a history of cluster B personality traits, alcohol dependence and schizophrenia currently having active problems with liver cirrhosis and ascites who was admitted to the neuropsychiatric unit due to homicidal threats towards his ex . Patient was seen in the ICU today. He continued to report pain issues while seen in ICU, he reports no current thoughts of hurting mother of his adult children stating that he was just joking. Mental Status Exam MSE Comments: This is an obese white male with hospital scrubs on with intermittent eye contact and poor grooming lying in his ICU bed. He appeared in significant distress as he was rocking back and forth on his bed. He was cooperative with exam in no acute distress and appeared to be in some pain. His speech was normal in rate and volume. Mood described as better today. His affect remained irritable and was mood incongruent. Thought process:linear, logical Thought content: Patient minimized homicidal ideation and minimized any suicidal ideation as well. There were no delusions reported or noted, he denied any auditory or visual hallucinations currently. Attention and concentration appeared intact and memory was mostly reliable but none were formally tested. The alert and oriented x3. Insight is impaired. His impulse control is impaired, His judgment is feeble. Vitals/I&O/Wt Last Vital Signs Temp 97.1 F L 06/10/22 07:30 Pulse 101 H 06/10/22 18:06 Resp 18 06/10/22 18:06 BP 109/78 06/10/22 14:00 Pulse Ox 95 06/10/22 18:06 O2 Del Method 06/10/22 18:06 O2 Flow Rate 2 06/10/22 18:06 FiO2 4 06/09/22 20:00 06/10/22 06/10/22 06/10/22 06:59 14:59 22:59 Intake Total 230 / 1380 650 / 650 400 / 1050 Output Total 100 / 100 100 / 200 Balance 230 / 1130 550 / 550 300 / 850 Data NPU 06/09/22 04:27 06/09/22 16:15 A&P Assessment and plan (1) Schizophrenia: (2) Auditory hallucinations: (3) Diabetic feet: (4) Alcohol dependence, uncomplicated: (5) Alcohol use disorder, severe, dependence: (6) Seizure disorder: (7) Depression with suicidal ideation: (8) Homicidal ideation: Plan 46 year old white male with reported history of traumatic brain injury, schizophrenia and alcohol dependence admitted to ICU in alcohol withdrawal with cirrosis currently minimizing previously clear homicidal plan with intent. 1. Continue current medications. Invega Sustenna maintenance dose due on 06/22/21. 2. Encourage patient in milieu/group/individual therapy 3. Continue q 15 minutes checks for safety. 4. Encourage sober living treatment outside of discharge at the highest level of care to which he is willing to commit. 5. Eagerly awaiting transfer back to NPU at this time once stabilized. 6. Investigate and attempt to contact Mr. Flores's target for homicidal threats. . Involuntary Hold Information 96 Hour Hold: 96 Hour Involuntary Admission: Yes 96 Hour Hold Ending Date: 06/12/22 96 Hour Hold Ending Time: 14:00 Attestations NPU Medical Necessity Statement*: continued inpatient care, with consideration of involuntary hospitalization back to NPU Coding Level of Care Code Established Pt Acute Code for Chg Fwd Patient Type Established History Problem Focused Exam Problem Focused Medical Decision Making Straight Forward Diagnoses Schizophrenia F20.9 Auditory hallucinations R44.0 Diabetic feet E11.8 Alcohol dependence, uncomplicated F10.20 Alcohol use disorder, severe, dependence F10.20 Seizure disorder G40.909 Depression with suicidal ideation F32.A; R45.851 Homicidal ideation R45.850
[2022-06-11] VITALS (37 sets, daily range): BP systolic 85–122; BP diastolic 46–78; PULSE 65–102; RESP 14–31; TEMP 36.6–37.4; O2SAT 75–100
[2022-06-11] MEDS: nicotine 4 mg lozenge MUCOUS MEM ×2 (01:42→20:45)
--- NOTE | 2022-06-11 02:08 | PC.NURSE ---
Patient rested in bed several hours with maintained Sp02 on room air. 0200 patient is up and alert in the the recliner. Patient had bowel movement and separate void in the bedside commode. Urine appeared dark and foul. UA order received however current sample was not voided in a clean container and would not provide accurate results. Patient has requested multiple coffees and has been cooperative during this nurse's shift.
[2022-06-11 02:39] LABS: Bilirubin Urine 1+ (Negative); Blood Urine Neg (Negative); Glucose Urine UA Norm (Normal); Ketones Urine 1+ (Negative); Leukocyte Esterase Urine 1+ (Negative); Nitrate Urine Negative (Negative); Protein Urine 1+ (Negative); RBC Urine 0-4 /hpf (0-2); Squamous Epithelial Cell Urine 0-4 /hpf (0-5); Urine Appearance Clear (CLEAR); Urine Color Dark Yellow (Yellow); Urobilinogen Urine 8 mg/dL (Negative); WBC Urine 0-4 /hpf (0-5); pH Urine 5 (5-7)
[2022-06-11 02:40] LABS: Add Urine Culture? No; Bacteria Urine 1+ /hpf; Mucus Urine 3+ /hpf
[2022-06-11 03:13] LABS: Basophils # 0.1 10^3/uL (0.0-0.1); Basophils % 1.2 %; Eosinophils # 0.4 10^3/uL (0.0-0.8); Eosinophils % 6.6 %; Hematocrit 41.8 % (42.0-52.0); Hemoglobin 14.1 g/dL (11.7-16.6); Lymphocytes # 1.2 10^3/uL (0.8-4.8); Lymphocytes % 20.5 %; Mean Corpuscular HGB Conc 33.7 g/dL (30.0-36.0); Mean Corpuscular Hemoglobin 33.9 pg (28.0-34.0); Mean Corpuscular Volume 100.5 fl (80-94); Monocytes # 0.5 10^3/uL (0.2-0.9); Monocytes % 8.3 %; Neutrophils # 3.66 10^3/uL (1.8-7.7); Neutrophils % 63.1 %; Nucleated Red Blood Cells % 0 %; Platelet Count 170 10^3/cmm (130-400); Red Blood Count 4.16 10^6/uL (4.1-5.3); Red Cell Distribution Width 12.3 % (12.1-15.1); White Blood Count 5.8 10^3/uL (4.0-10.0)
[2022-06-11 03:35] LABS: Blood Urea Nitrogen 4 mg/dL (6-20); Calcium 8.1 mg/dL (8.5-10.5); Carbon Dioxide 22 mmol/L (22-29); Chloride 102 mmol/L (98-107); Glomerular Filtration Rate 177.5 mL/min (90-130); Glucose 119 mg/dL (65-115); Osmolality Calculated 276 mOsm/kg (285-295); Sodium 134 mmol/L (136-145)
[2022-06-11 03:38] LABS: Anion Gap 13.5 (5-19); Potassium 3.5 mmol/L (3.5-5.1)
--- NOTE | 2022-06-11 06:50 | PC.NURSE ---
Bedside report completed with Bandar Lai
[2022-06-11] MEDS: magnesium oxide 400 mg tablet 200 MG PO (08:36)
[2022-06-11] MEDS: levETIRAcetam 500 mg Tablet 750 MG PO ×2 (08:36→18:20)
[2022-06-11] MEDS: thiamine 100 mg Tablet PO (08:36)
[2022-06-11] MEDS: pantoprazole DR 40 mg Tablet PO (08:36)
[2022-06-11] MEDS: multivitamin therapeutic Tablet 1 TAB PO (08:36)
[2022-06-11] MEDS: folic acid 1 mg Tablet PO (08:37)
[2022-06-11] MEDS: azithromycin 250 mg Tablet 500 MG PO (08:37)
--- NOTE | 2022-06-11 09:34 | P.PN_ITS ---
Subjective Subjective: Patient could be transferred to [facility] Not requiring oxygen on room air saturating 99% Mentation has improved No fever or leukocytosis No breakthrough seizures CIWA 0 in last 24 hours Vitals/I&O/Wt Last Vital Signs Temp 98.6 F 06/11/22 08:00 Pulse 80 06/11/22 09:00 Resp 21 H 06/11/22 09:00 BP 122/73 06/11/22 09:00 Pulse Ox 93 06/11/22 09:00 O2 Del Method 06/11/22 09:00 O2 Flow Rate 2 06/10/22 18:06 FiO2 4 06/09/22 20:00 06/10/22 06/11/22 06/11/22 22:59 06:59 14:59 Intake Total 650 / 1300 490 / 1790 300 / 300 Output Total 100 / 200 550 / 750 Balance 550 / 1100 -60 / 1040 300 / 300 Physical Exam Narrative: Patient is sitting in his recliner eating breakfast Saturating well on room air Awake and alert Nonfocal neuro exam Much more awake as compared to yesterday Bilateral breath sounds with coarse rhonchi at left side greater than right Afebrile Ascites Signs of fluid overload Facial psoriasis Data 06/11/22 02:39 06/11/22 02:39 A&P Assessment and plan (1) Pneumonia: (2) Homicidal ideation: (3) Alcohol withdrawal seizure: (4) Ascites: (5) Psoriasis: (6) Acne rosacea: (7) Psychiatric care: (8) Diabetic feet: (9) Traumatic brain injury: (10) Alcohol withdrawal seizure: (11) ALC (alcoholic liver cirrhosis): Plan Recurrent breakthrough seizures related to alcohol withdrawal Patient became very drowsy with use of Keppra, Vimpat and phenobarbital, hence I have discontinued phenobarbital and Vimpat and decrease the dose of Keppra his m entation is much better and improved Please avoid trazodone in Neuropsych Unit which can decrease the threshold for seizure In case of any breakthrough seizures you can use IV Ativan 2 mg Continue thiamine and folic acid CIWA 0 in last 24 hours Alcohol-related liver cirrhosis No active encephalopathy Continue Lasix avoiding spironolactone because of low blood pressure Continue potassium supplement post paracentesis 7 L removed he was given albumin as well which improved his blood pressure Homicidal ideation/schizophrenia 96-hour hold Patient was making statements to hurt his ex-, psychiatrist will inform the relevant person and authorities, I did clarify with him Hypoxia related to possible aspiration pneumonia I would only keep him on azithromycin for now Currently requiring room air saturating 99% Left lower lobe rhonchi and crackles noted Sometimes because of hypoventilation shallow breathing he requires oxygen Full code Low-sodium diet DVT prophylaxis: [facility] will follow along Attestations Medical Necessity Statement*: Continue medical management, was transferred to Neuropsych Unit Time Spent in Patient Care: 30 Critical Care Time: 30 Coding Level of Care Code Acute Message And Delivery Service Pricer for Chg Fwd Diagnoses Pneumonia J18.9 Homicidal ideation R45.850 Alcohol withdrawal seizure F10.939; R56.9 Ascites R18.8 Psoriasis L40.9 Acne rosacea L71.9 Psychiatric care Diabetic feet E11.8 Traumatic brain injury S06.9X9A Alcohol withdrawal seizure F10.939; R56.9 ALC (alcoholic liver cirrhosis) K70.30
[2022-06-11] MEDS: cefTRIAXone 2,000 MG in sodium chloride 0.9% (plus) 50 ML 100 MG IV (11:46)
--- NOTE | 2022-06-11 11:57 | PC.SOCIAL ---
IMM updated IMM updated with pt & discussed with him that he is on a 96hr hold at this time, until 06/12. No questions voiced. Provided pt a copy. Initialed, dated, & timed a copy & placed in chart.
--- NOTE | 2022-06-11 18:26 | W.PM.NPUPNS ---
Subjective NPU Subjective: Patient presented today reporting that he was hopeful to be discharged soon. We discussed the fact that we need to continue evaluation on 96-hour hold on the neuropsychiatric unit and he understood that. He reports that he has been managed well in the ICU and denies any new concerns and was reporting that he was feeling better and not feeling lethal. Mental Status Exam MSE Comments: This is an obese white male with hospital attire with intermittent eye contact and poor grooming lying in his ICU bed. No abnormal movements except for his continued rocking movements. Cooperative with exam and mild to moderate distress. Speech was normal rate and volume. Mood described as better, affect less irritable. Thought process:linear, logical Thought content: Patient denied suicidal or homicidal ideations, there were no delusions reported or noted, he denied any auditory or visual hallucinations. Attention and concentration appeared intact and memory was mostly reliable but none were formally tested. The alert and oriented x3. Insight is limited. His impulse control is impaired, His judgment is limited. Vitals/I&O/Wt Last Vital Signs Temp 99.4 F 06/11/22 22:00 Pulse 94 06/11/22 22:00 Resp 16 06/11/22 22:00 BP 111/72 06/11/22 22:00 Pulse Ox 92 06/11/22 22:00 O2 Del Method 06/11/22 22:00 O2 Flow Rate 2 06/10/22 18:06 FiO2 4 06/09/22 20:00 06/11/22 14:59 Intake Total 750 / 750 Balance 750 / 750 Data NPU 06/11/22 02:39 06/11/22 02:39 A&P Assessment and plan (1) Schizophrenia: (2) Auditory hallucinations: (3) Diabetic feet: (4) Alcohol dependence, uncomplicated: (5) Alcohol use disorder, severe, dependence: (6) Seizure disorder: (7) Depression with suicidal ideation: (8) Homicidal ideation: Plan 46 year old white male with reported history of traumatic brain injury, schizophrenia and alcohol dependence admitted to ICU in alcohol withdrawal with cirrosis currently endorsing clear homicidal ideation with plan. 1. Continue current medications. Invega Sustenna maintenance dose due on 06/22/21. 2. Encourage patient in milieu/group/individual therapy 3. Continue q 15 minutes checks for safety. 4. Encourage sober living treatment outside of discharge at the highest level of care to which he is willing to commit. 5. Transfer back to NPU once deemed medically stable. 6. Continue to evaluate for need to consider contacting ex- due to threats. . Involuntary Hold Information 96 Hour Hold: 96 Hour Involuntary Admission: Yes 96 Hour Hold Ending Date: 06/12/22 96 Hour Hold Ending Time: 14:00 Attestations NPU Medical Necessity Statement*: Inpatient hospitalization is medically necessary and the clinically appropriate intervention at this time. We will monitor medications and make changes as indicated. Likely length of stay 2-4 days. Coding Level of Care Code Acute Electric System Operator for Chg Fwd Diagnoses Schizophrenia F20.9 Auditory hallucinations R44.0 Diabetic feet E11.8 Alcohol dependence, uncomplicated F10.20 Alcohol use disorder, severe, dependence F10.20 Seizure disorder G40.909 Depression with suicidal ideation F32.A; R45.851 Homicidal ideation R45.850
--- NOTE | 2022-06-11 18:55 | PC.NURSE ---
Bedside report completed with NATHALY Lai
--- NOTE | 2022-06-11 20:22 | PC.NURSE ---
Shift Note: No seizure activity this shift. No angry outbursts. behavior has been pleasant and appropriate this shift. He has been up in a chair for meals, ate his meals well. He has been continent of urine . He has had 2 copious BMs today. He has been pateintly waiting for a room on NPU unit. Frequent safety and comfort rounds continue. Orders and/or nursing care completed as indicated. Patient monitored for response to intervention and treatment(s). Education provided includes medications, progress and plan of care. 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 Will continue to monitor.
--- NOTE | 2022-06-11 20:32 | PC.NURSE ---
Report given to NPU nurse Elvira. Patient transferred by Security and Patient Sitter.
[2022-06-12 06:00] VITALS: RESP 16
--- NOTE | 2022-06-12 06:27 | W.PM.NPUPNS ---
Vitals/I&O/Wt Last Vital Signs Temp 99.4 F 06/11/22 22:00 Pulse 94 06/11/22 22:00 Resp 16 06/12/22 06:00 BP 111/72 06/11/22 22:00 Pulse Ox 92 06/11/22 22:00 O2 Del Method 06/11/22 22:00 O2 Flow Rate 2 06/10/22 18:06 FiO2 4 06/09/22 20:00 06/11/22 06/11/22 06/12/22 14:59 22:59 06:59 Intake Total 750 / 750 500 / 1250 Balance 750 / 750 500 / 1250 Data NPU 06/11/22 02:39 06/11/22 02:39 Involuntary Hold Information 96 Hour Hold: 96 Hour Involuntary Admission: Yes 96 Hour Hold Ending Date: 06/12/22 96 Hour Hold Ending Time: 14:00 Coding Level of Care Code Acute Machine Brush Maker for Carlos Armstrong
[2022-06-12] MEDS: nicotine 4 mg lozenge MUCOUS MEM ×4 (07:48→16:50)
[2022-06-12] MEDS: pantoprazole DR 40 mg Tablet PO (09:32)
[2022-06-12] MEDS: thiamine 100 mg Tablet PO (09:32)
[2022-06-12] MEDS: potassium chloride ER 20 mEq Tablet PO (09:32)
[2022-06-12] MEDS: folic acid 1 mg Tablet PO (09:33)
[2022-06-12] MEDS: multivitamin therapeutic Tablet 1 TAB PO (09:33)
[2022-06-12] MEDS: FUROsemide 40 mg Tablet PO (09:33)
[2022-06-12 09:34] LABS: Glucose Point of Care 138 mg/dL (70-110)
[2022-06-12] MEDS: magnesium oxide 400 mg tablet 200 MG PO (09:35)
[2022-06-12] MEDS: levETIRAcetam 500 mg Tablet 750 MG PO ×2 (09:35→17:26)
[2022-06-12] MEDS: azithromycin 250 mg Tablet 500 MG PO (11:04)
--- NOTE | 2022-06-12 11:35 | CTR_ITS ---
PROCEDURE INFORMATION: Exam: CT Head Without Contrast Exam date and time: 06/12/2022 12:11 PM Age: 46 years old Clinical indication: Other: Seizures TECHNIQUE: Imaging protocol: Computed tomography of the head without contrast. Radiation optimization: All CT scans at this facility use at least one of these dose optimization techniques: automated exposure control; mA and/or kV adjustment per patient size (includes targeted exams where dose is matched to clinical indication); or iterative reconstruction. COMPARISON: CT head wo con* [id number] 06/05/2022 12:48 PM RADIATION DOSE METRICS: Total DLP (mGy-cm): 1180.08 FINDINGS: Brain: Normal. No hemorrhage. No space-occupying masses or areas of mass effect. No edema or midline shift. Cortical sulci are unremarkable for age. Cerebral ventricles: No ventriculomegaly. Paranasal sinuses: Visualized sinuses are unremarkable. No fluid levels. Mastoid air cells: Visualized mastoid air cells are well aerated. Bones/joints: Unremarkable. Soft tissues: Unremarkable. CT/CT head wo con* [id number] IMPRESSION: Negative CT examination of the head. No acute intracranial abnormalities.
[2022-06-12 12:00] LABS: Glucose Point of Care 127 mg/dL (70-110)
--- NOTE | 2022-06-12 12:31 | P.PN_ITS ---
Subjective Subjective: Rapid response was called for a possible breakthrough seizure When I examined the patient his glucose was 138, he sat up on his own, he was not confused at all, tonic-clonic seizure was not noticed when nurse entered the room he was on the floor and coffee was spilled No postictal confusion noticed Patient started stating that he is fine and he wants coffee I was called around 1130 for another breakthrough seizure, I requested CT head without contrast Vitals/I&O/Wt Last Vital Signs Temp 99.4 F 06/11/22 22:00 Pulse 94 06/11/22 22:00 Resp 16 06/12/22 06:00 BP 111/72 06/11/22 22:00 Pulse Ox 92 06/11/22 22:00 O2 Del Method 06/11/22 22:00 O2 Flow Rate 2 06/10/22 18:06 FiO2 4 06/09/22 20:00 06/11/22 06/12/22 06/12/22 22:59 06:59 14:59 Intake Total 500 / 1250 Balance 500 / 1250 Physical Exam Narrative: I did not notice any postictal confusion He was able to finish sentences No signs of confusion Awake and alert Abdomen soft No worsening of ascites Short attention span Facial psoriasis No audible stridor or wheezing Data 06/11/22 02:39 06/11/22 02:39 A&P Assessment and plan (1) Pneumonia: (2) Homicidal ideation: (3) Alcohol withdrawal seizure: (4) Ascites: (5) Hypocalcemia: (6) Alcohol dependence: (7) Alcohol withdrawal seizure: Plan Recurrent breakthrough seizures Alcohol withdrawal Decision was made to discontinue phenobarbital and Vimpat because of excessive drowsiness In neuropsychiatric unit he had couple of episodes of breakthrough seizures on 06/12 Blood glucose normal Hemodynamically stable He has not received his Keppra dose for today Did not receive Ativan, No postictal confusion noticed at the time of rapid response CT head without contrast requested today Afebrile Seems atypical for alcohol withdrawal seizures after 5 days, he is not getting trazodone this time Currently on azithromycin for possible pneumonia Continue thiamine and folic acid I will put him on phenobarbital p.o. low-dose for now Full code Attestations Medical Necessity Statement*: Monitor in neuropsychiatric unit for now Time Spent in Patient Care: 30 Coding Level of Care Code Acute Needle Loom Operator Helper for Chg Fwd Diagnoses Pneumonia J18.9 Homicidal ideation R45.850 Alcohol withdrawal seizure F10.939; R56.9 Ascites R18.8 Hypocalcemia E83.51 Alcohol dependence F10.20 Alcohol withdrawal seizure F10.939; R56.9
[2022-06-12 14:00] VITALS: BP 103/69; PULSE 102; RESP 18; TEMP 37.4; O2SAT 95
[2022-06-12 16:02] LABS: Glucose Point of Care 115 mg/dL (70-110)
--- NOTE | 2022-06-12 16:47 | PC.NURSE ---
At approximately 1215 patient left floor to have CT scan done to head. Patient arrived back on unit at approximately 1235.
--- NOTE | 2022-06-12 16:50 | PC.NURSE ---
Addendum entered by Selma Chahal RN 06/12/22 16:54: seizure-like activity lasted approximately 30 seconds Original Note: While patient had a visitor at approximately 1510 he began to have seizure-like activity. Patient slowly slumped to the ground near nurses' station from the bench and visitor yelled for help. Multiple staff members, including this RN, responded immediately. Patient was turned to his side to protect the airway and head was supported by a pillow. Patient was able to answer all of staffs' questions and was able to sit up shortly thereafter. Throughout this time patient never lost consciousness.
--- NOTE | 2022-06-12 17:04 | W.PM.NPUDCS ---
Diagnoses at Discharge Discharge Diagnosis (1) Pneumonia: Status: Acute (2) Homicidal ideation: Status: Resolved (3) Alcohol withdrawal seizure: Status: Inactive (4) Ascites: Status: Inactive (5) Hypocalcemia: Status: Inactive (6) Alcohol dependence: Status: Inactive (7) Alcohol withdrawal seizure: Status: Resolved Reason for Visit Reason for Visit: Passed out in wr Brief History: History of Present Illness Reinaldo Flores is a 46 year old male with a history of alcohol abuse,cirrhosis of the liver, paracentesis earlier this week who was admitted to the ICU for alcohol withdrawal symptom symptoms. The patient had been stabilized in the ICU and had reported active alcohol consumption including consuming a gallon of whiskey on a daily basis. He reports that he had recently been discharged from the neuropsychiatric unit 2 weeks ago on Citalopram and the Invega Sustenna. He returned reports continued problems with his mood and states that he does not wish to receive any help from the behavioral health outpatient clinic here in [place]. He reported clearly that he is now ready to kill his ex- who had prevented the patient from having contact with the children all of these years. He reports that now that the youngest 1 is 18 years old, he will shoot his ex- with one of his many firearms. Patient had reported anger towards his ex- and stated that he knew where she lived. The patient's current had stated that the patient had no clear idea of her whereabouts when the video game script writer of this note spoke on the phone to her. The patient will be admitted to the neuropsychiatric unit involuntarily on a 96-hour hold for further evaluation and treatment. This is an excerpt from previous admission on 05/25/22: Brief History: History of Present Illness Reinaldo Flores is a 46 year old male who presented to the emergency department with the following report: Chief Complaint: Psychiatric Symptoms Stated Complaint: SI Time Seen by Provider: 05/15/22 19:10 Source: EMS Mode of arrival: EMS Limitations: no limitations History of Present Illness: 46-year-old male who states he has been hearing voices since yesterday he has a history of cirrhosis is an alcoholic he states that he has heard voices throughout the night's been telling to kill himself he states he does have a plan to shoot himself he denies any worsening improving factors. He is talking a third person currently Associated symptoms: Reports auditory hallucinations, depression and suicidal ideation. He was admitted to the neuropsychiatric unit for definitive treatment of those issues. He presents today reporting that he does not have any current medications because he and [facility] had an issue because they were going to require him to be a walk-in and he cannot be around that many people for that long so his medication ended which included an Invega injection. He reports that he has had significant allergies but he cannot remember them all in his chart lists Clozaril Depakote and Haldol. He reports that after being off of his Invega shot for the past 2 months things started spiraling out of control. He presented to the emergency department and was placed on a 96-hour hold with reports of suicidal intent. Which he continues to endorse. We discussed the risks benefits and alternatives of restarting his Invega as well as restarting his Celexa. He reports having cirrhosis of the liver and cutting down significantly on his drinking but he does endorse continuing to drink. He reports he had his abdomen drained as recently as Saturday. He reports that it was recommended that he come to the hospital because he was having blackouts and then having dangerous behavior during those times. He reports being hospitalized psychiatrically possibly 50 times in the past. He smokes about 2 packs of cigarettes a day, reports he drinks whiskey mixed with sweet tea daily. There is a gun in the home and he had in fact reportedly shot 1 off prior to coming to the hospital. Per his 12/17/2021 [facility] inpatient psychiatric evaluation: History of Present Illness Reinaldo Flores is a 46 year old male with a history of Schizophrenia and Alcohol Dependence admitted on 96 hour hold as he had reported that he made a decision to discuss his dream with someone and it was blown out of proportion. He reports that he was unable to leave the emergency department because he would not contract for safety and give up his guns. Reinaldo reports that his was scared about something he said and it was reported in [facility] that Reinaldo had reported thoughts to blow his head off with a gun. He reports significant alcohol use for all my life. and reports drinking a 1/2 gallon of alcohol daily for several years. He reports past history of schizophrenia and reports that the voices have been controlled by his medication and reports that he has had violent thoughts to hurt others in the past. He endorsed a history of alcohol withdrawal symptoms, include seizures, blackouts and shakes. Past Psychiatric History: Is notable for multiple inpatient psychiatric hospitalizations. He reports last being admitted at [facility] in [facility] for inpatient he reports history of alcohol dependence, schizophrenia and traumatic brain injury. He was last seen at his outpatient appointment 3 days ago at [facility] in [facility]Followed by Dr. Bustamante in [facility]. Hx of multiple psychiatric medication trials: zyprexa, valium, campral, naltrexone, Current medications: invega sustenna IM, Substance abuse hx: reports misuse of stimulants in the past but reports active use of alcohol for over 20 years with longest period of abstinence was 1 year. 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 Hospital Course Hospital Course Patient slowly acclimated to the individual, group and milieu therapies provided. During his presentation he did at one point go to the ICU and there were reports of seizures. However further observation raises considerable concern for personality disorder and malingering versus factitious disorder as he was having great clarity after these reported seizures and some of his commentary surrounding it was suggestive of some external identify again. But ultimately he made it clear that he had no intention of discontinuing his drinking and was not interested in any of the recommendations we made for treatment outside of the medication. On the Invega injection and was started on Keppra. Appropriate follow-ups were obtained. He had modest improvement during his stay, and he was able to contract for safety outside of the hospital, prior to discharge.? During the hospitalization, patient had routine laboratory studies which were within normal limits except for few outliers.? Additionally there was a general medical evaluation which was also within normal limits and revealed no new acute processes. Any significant outliers were managed by the hospitalist who followed him during the stay. Discharge Summary: At the time of discharge, he denied psychosis or lethality. Mood and anxiety were well managed.? Patient endorsed a plan to avoid all drugs of abuse and follow-up with the aftercare recommendations of the treatment team.? Patient was evaluated and deemed to be absent credible lethality, and had achieved the maximum benefit from an inpatient hospitalization, so was discharged. Involuntary Hold Information 96 Hour Hold: 96 Hour Involuntary Admission: Yes 96 Hour Hold Ending Date: 06/12/22 96 Hour Hold Ending Time: 14:00 Mental Status Exam MSE Comments: This is an obese white male with hospital attire with intermittent eye contact and poor grooming lying in his ICU bed. No abnormal movements except for his continued rocking movements. Cooperative with exam and mild to moderate distress. Speech was normal rate and volume. Mood described as better, affect congruent. Thought process:linear, logical Thought content: Patient denied suicidal or homicidal ideations, there were no delusions reported or noted, he denied any auditory or visual hallucinations. Attention and concentration appeared intact and memory was mostly reliable but none were formally tested. The alert and oriented x3. Insight is limited. His impulse control is impaired, His judgment is limited. Discharge Data Studies Completed and Pending: Completed Studies During Hospitalization Category Date Time Status CT head wo con* 7 [id number] Routine Cat Scan 06/12/22 11:35 Completed XR chest 1V dante ble [id number] Routine Exams 06/09/22 08:43 [place] w [id number] Routine Ultrasound 06/06/22 19:53 Completed Pending at discharge Category Date Time Status CMP [Comprehensiv e Metabolic Panel] AM LABS Lab 06/13/22 04:00 Ordered Sputum Culture an d Gram Stain Bong ne Lab 06/10/22 10:35 Uncollected Radiology Impressions Paracentesis Ultrasound 06/06/22 19:53 IMPRESSION: Uncomplicated ultrasound-guided paracentesis. Removal of 7000 cc clear yellow ascites Chest X-Ray 06/09/22 08:43 IMPRESSION: Left infrahilar/retrocardiac consolidation, may be consistent with atelectasis versus pneumonia. Remainder of the lung parenchyma is clear. Head CT 06/12/22 11:35 IMPRESSION: Negative CT examination of the head. No acute intracranial abnormalities. Laboratory Results WBC 5.8 10^3/uL (4.0- 10.0) 06/11/22 02:39 RBC 4.16 10^6/uL (4.1 -5.3) 06/11/22 02:39 Hgb 14.1 g/dL (11.7-1 6.6) 06/11/22 02:39 Hct 41.8 % (42.0-52.0 ) L 06/11/22 02:39 MCV 100.5 fl (80-94) H 06/11/22 02:39 MCH 33.9 pg (28.0-34. 0) 06/11/22 02:39 MCHC 33.7 g/dL (30.0-3 6.0) 06/11/22 02:39 RDW 12.3 % (12.1-15.1 ) 06/11/22 02:39 Plt Count 170 10^3/cmm (130 -400) 06/11/22 02:39 MPV 11.0 fL (7.4-10.4 ) H 06/11/22 02:39 Neut % (Auto) 63.1 % 06/11/22 02:39 Lymph % (Auto) 20.5 % 06/11/22 02:39 [place] % (Auto) 8.3 % 06/11/22 02:39 Eos % (Auto) 6.6 % 06/11/22 02:39 Baso % (Auto) 1.2 % 06/11/22 02:39 Neut # (Auto) 3.66 10^3/uL (1.8 -7.7) 06/11/22 02:39 Lymph # (Auto) 1.2 10^3/uL (0.8- 4.8) 06/11/22 02:39 [place] # (Auto) 0.5 10^3/uL (0.2- 0.9) 06/11/22 02:39 Eos # (Auto) 0.4 10^3/uL (0.0- 0.8) 06/11/22 02:39 Baso # (Auto) 0.1 10^3/uL (0.0- 0.1) 06/11/22 02:39 Nucleated RBC % (a uto) 0 % 06/11/22 02:39 Nucleated RBCs # 0.0 /100WBC 06/11/22 02:39 Sodium 134 mmol/L (136-1 45) L 06/11/22 02:39 Potassium 3.5 mmol/L (3.5-5 .1) 06/11/22 02:39 Chloride 102 mmol/L (98-10 7) 06/11/22 02:39 Carbon Dioxide 22 mmol/L (22-29) 06/11/22 02:39 Anion Gap 13.5 (5-19) 06/11/22 02:39 BUN 4 mg/dL (6-20) L 06/11/22 02:39 Creatinine 0.5 mg/dL (0.7-1. 2) L 06/11/22 02:39 GFR Calculation 177.5 mL/min (90- 130) H 06/11/22 02:39 Glucose 119 mg/dL (65-115 ) H 06/11/22 02:39 POC Glucose 115 mg/dL (70-110 ) H 06/12/22 15:35 Calculated Osmolal ity 276 mOsm/kg (285- 295) L 06/11/22 02:39 Calcium 8.1 mg/dL (8.5-10 .5) L 06/11/22 02:39 Phosphorus 3.9 mg/dL (2.5-4. 5) 06/06/22 02:16 Magnesium 1.7 mg/dL (1.7-2. 3) 06/06/22 02:16 Total Bilirubin 0.9 mg/dL (0.15-1 .2) 06/09/22 16:15 AST 31 U/L (0-40) 06/09/22 16:15 ALT 11 U/L (0-41) 06/09/22 16:15 Alkaline Phosphata se 55 U/L (40-130) 06/09/22 16:15 Ammonia 65 umol/L (16-60) H 06/10/22 11:28 C-Reactive Protein 17.9 mg/L (0.0-4. 9) H 06/06/22 02:16 Total Protein 6.1 g/dL (6.6-8.7 ) L 06/09/22 16:15 Albumin 2.9 g/dL (3.5-5.2 ) L 06/09/22 16:15 Globulin 3.2 g/dL (1.3-4.6 ) 06/09/22 16:15 Procalcitonin 0.06 ng/mL (0-0.5 ) 06/05/22 20:23 Urine Color Dark yellow (Yel low) 06/11/22 02:30 Urine Appearance Clear (CLEAR) 06/11/22 02:30 Urine pH 5 (5-7) 06/11/22 02:30 Ur Specific Gravit y 1.020 (1.005-1.0 30) 06/11/22 02:30 Urine Protein 1+ (Negative) H 06/11/22 02:30 Urine Glucose (UA) Norm (Normal) 06/11/22 02:30 Urine Ketones 1+ (Negative) H 06/11/22 02:30 Urine Blood Neg (Negative) 06/11/22 02:30 Urine Nitrate Negative (Negati ve) 06/11/22 02:30 Urine Bilirubin 1+ (Negative) H 06/11/22 02:30 Urine Urobilinogen 8 mg/dL (Negative ) H 06/11/22 02:30 Ur Leukocyte Niru ase 1+ (Negative) H 06/11/22 02:30 Urine RBC 0-4 /hpf (0-2) H 06/11/22 02:30 Urine WBC 0-4 /hpf (0-5) H 06/11/22 02:30 Ur Squamous Epith Cells 0-4 /hpf (0-5) H 06/11/22 02:30 Amorphous Sediment Not Reportable 06/11/22 02:30 Urine Bacteria 1+ /hpf (NONE) H 06/11/22 02:30 Urine Mucus 3+ /hpf 06/11/22 02:30 Levetiracetam 15.9 mcg/mL (6.0- 46.0) 06/07/22 14:15 Vitals: Last Vital Signs Temp 99.3 F 06/12/22 14:00 Pulse 102 H 06/12/22 14:00 Resp 18 06/12/22 14:00 BP 103/69 06/12/22 14:00 Pulse Ox 95 06/12/22 14:00 O2 Del Method 06/11/22 22:00 O2 Flow Rate 2 06/10/22 18:06 FiO2 4 06/09/22 20:00 Discharge Plan Discharge Patient Disposition: Home Condition: Stable Prescriptions: New levetiracetam 750 mg tablet 750 mg PO BID 30 Days Qty: 60 1RF multivitamin with folic acid [Thera] 400 mcg Tablet 1 tab PO DAILY 30 Days Qty: 30 1RF Continued folic acid 1 mg Tablet 1 mg PO DAILY 30 Days Qty: 30 1RF spironolactone 25 mg tablet 25 mg PO BID pantoprazole 40 mg Tablet,Delayed Release (Dr/Ec) 40 mg PO DAILY 30 Days Qty: 30 1RF thiamine mononitrate (vit B1) [Vitamin B-1 (mononitrate)] 100 mg Tablet 100 mg PO DAILY 30 Days Qty: 30 1RF lactulose 20 gram/30 mL Solution 30 g PO TID 30 Days Qty: 4050 1RF Invega Sustenna 234 mg/1.5 mL syringe 234 mg IM Q30D Qty: 1.5 1RF Rx Instructions: Next dose 06/22/2022 Discontinued lorazepam [Ativan] 1 mg tablet 1 mg PO Q8H PRN (Reason: alcohol withdrawal) Qty: 10 0RF Rx Instructions: take 3 times a day for the next 3 days- do not drink alcohol with this medication No Action vitamin A 1 cap PO DAILY Discharge Orders: Discharge Order (Routine); Ordered 06/12/22 Ordered By: Samuel Torres Referrals: Jewell Hugo FNP-C [Primary Care Provider] - Discharge Diet: As Directed and Low Salt Discharge Activity: Resume usual activity Patient Instructions: Alcohol Abuse, Folic Acid (By mouth), Levetiracetam (By mouth), Vitamin D (By mouth), Schizophrenia (DC), Suicide Prevention (DC), Opioid Safety Discharge Attestations NPU Time Spent in Discharge Care*: greater than 30 min Specific Discharge Activities: Specific discharge activities: educating patient, discussing with director of casework department/social workers/dc planners, documenting/other paperwork and evaluating patient/reviewing data Status at Discharge: Cognitive status at discharge: cognitively intact, Behavioral status at discharge: cooperative, Coding Level of Care Code Acute Chg FW DC note Diagnoses Pneumonia J18.9 Homicidal ideation R45.850 Alcohol withdrawal seizure F10.939; R56.9 Ascites R18.8 Hypocalcemia E83.51 Alcohol dependence F10.20 Alcohol withdrawal seizure F10.939; R56.9
--- NOTE | 2022-06-12 17:47 | PC.NURSE ---
Patient complaining of pain on the back of his head. He stated he hit his head when he fell to the floor during his seizure-like activity earlier today (see previous nurses' note). Upon review of footage with director, patient's head did not appear to make impact with the floor at any point in time.
[2022-06-12 17:53] VITALS: BP 103/69; PULSE 102; RESP 18; TEMP 37.4; O2SAT 95
--- NOTE | 2022-06-15 12:34 | PC.SOCIAL ---
Follow Up Erica RN in GI Lab called and notified CM that patient needed a PCP provider to continue getting paracentesis and albumin outpatient. She reported that patient's PCP provider NAIMA Perez wasn't able to order. CM attempted to reach Jewell Hugo's nurse, dental receptionist reported that patient is out to lunch, voicemail left. CM attempted to reach Dr. Dunn's office, his office is closed today. CM called patient's phone. A male answered the phone, reported that he was not Reinaldo, but could take a message. MASHA explained that I was CM calling to help coordinate follow up appointments; he said okay I'll tell him, and hung up without giving CM time to give call back information. Will await call back from PCP office.
--- NOTE | 2022-06-18 10:58 | PC.SOCIAL ---
Follow-Up Case management spoke with NAIMA Abrams that patient follows. She reports that she has been trying to get patient connected to Dr. Dunn for management of paracentesis and albumin orders. CM spoke with Dr. Dunn's office and they are able to see patient this , June 21 at 0900. Reached patient at [phone] and provided him appointment information. He verbalized understanding and stated he would make the appointment. He was able to teach back and report that he needed to talk to him about paracentesis and albumin orders.
== END 2022-06-12 18:41 | disposition home or self-care (01) | DRG 896 ==
LOC: ER 21:10 → ICU 22:50 → NP 06-06 15:34 → MEDSURG 06-07 15:20 → ICU 06-07 16:56 → NP 06-11 20:43
PROVIDERS: Family Medicine; Psychiatry & Neurology Psychiatry; Admitting Provider Internal Medicine; Emergency Provider Emergency Medicine; PCP Nurse Practitioner Family; Visit Provider Internal Medicine
DX: F10.239 Alcohol dependence with withdrawal, unspecified (principal); G93.41 Metabolic encephalopathy; J18.9 Pneumonia, unspecified organism; G40.89 Other seizures; E87.1 Hypo-osmolality and hyponatremia; K70.31 Alcoholic cirrhosis of liver with ascites; R45.850 Homicidal ideations; E83.51 Hypocalcemia; F20.9 Schizophrenia, unspecified; Z86.73 Personal history of transient ischemic attack (TIA), and cerebral infarction without residual deficits; E78.2 Mixed hyperlipidemia; F17.210 Nicotine dependence, cigarettes, uncomplicated; E11.42 Type 2 diabetes mellitus with diabetic polyneuropathy; E83.42 Hypomagnesemia; Z87.820 Personal history of traumatic brain injury; I25.10 Atherosclerotic heart disease of native coronary artery without angina pectoris; Z95.5 Presence of coronary angioplasty implant and graft; E66.9 Obesity, unspecified; Z68.32 Body mass index [BMI] 32.0-32.9, adult; L71.9 Rosacea, unspecified; L40.9 Psoriasis, unspecified; F60.89 Other specific personality disorders
CPT/HCPCS: 36415; 36416; 49083; 70450; 71045; 80048; 80053; 80177; 80307; 81001; 82140; 82550; 82962; 83735; 84100; 84145; 85025; 85610; 86140; 93005; 96361; 96365; 96367; 96372; 96375; 97165; 99285; G0378; J0610; J0696; J1940; J1953; J2060; J3411; J3490; J7030; J7040; P9047; Q0144; Q0162

== ENCOUNTER 2022-06-14 11:11 | Day surgery (SDC) | payer MEDICARE, MEDICAID, SELFPAY ==
[2022-06-14 09:32] VITALS: BMI 31.9
--- NOTE | 2022-06-14 11:21 | US_ITS ---
WS: [id number] ULTRASOUND-GUIDED PARACENTESIS CLINICAL INFORMATION: ASCITES COMPARISON: None. Procedure Informed consent: The risks, benefits, and alternatives of the procedure were discussed with the juan antonio ent. Verbal and written consent was obtained. Timeout: A timeout was performed to confirm the correct patient, procedure, and site. Preparation: A suitable skin site was identified. The patient was prepped and draped in usual sterile fashion. Lidocaine 1% was used for local anesthesia. Catheter: 4 Dutch One-step Yueh catheter. Side: RIGHT Lower quadrant. Fluid Volume: 6600 ml Color: Clear yellow DISPOSITION: Discarded safely. Complications: None. Patient disposition: Discharged from the department in stable condition. US/[place] paracentesis abd w [id number] IMPRESSION: Uncomplicated ultrasound-guided paracentesis. Removal of 6600 cc ascites
[2022-06-14 11:25] VITALS: BP 112/73; PULSE 96; RESP 18; TEMP 37.1; O2SAT 94
--- NOTE | 2022-06-14 11:43 | PC.NURSE ---
PT SHAKING, EYES CLOSED . STERNAL RUB DONE AND PT WOKE UP IMMEDIATELY. PT STATES I HAVE SEIZURES . DR REYNA NOTIFIED.
[2022-06-14 12:56] VITALS: BP 100/59; PULSE 86; RESP 18; O2SAT 95
[2022-06-14 13:27] VITALS: BP 105/64; PULSE 80; RESP 18; O2SAT 96
== END 2022-06-14 13:52 | disposition home or self-care (01) ==
LOC: GILAB 11:12
PROVIDERS: Radiology Neuroradiology; PCP Nurse Practitioner Family; Visit Provider Internal Medicine
PROC: (CPT 49082; principal; 2022-06-14 12:00)
DX: R18.8 Other ascites (principal)
CPT/HCPCS: 49083; 96365; P9046

== ENCOUNTER 2022-06-29 08:31 | Day surgery (SDC) | payer MEDICARE, MEDICAID, SELFPAY ==
[2022-06-29 08:43] VITALS: BP 166/111; PULSE 94; RESP 17; TEMP 37.2; O2SAT 94
--- NOTE | 2022-06-29 08:49 | US_ITS ---
WS: [id number] ULTRASOUND-GUIDED PARACENTESIS CLINICAL INFORMATION: ascites COMPARISON: None. Procedure Informed consent: The risks, benefits, and alternatives of the procedure were discussed with the juan antonio ent. Verbal and written consent was obtained. Timeout: A timeout was performed to confirm the correct patient, procedure, and site. Preparation: A suitable skin site was identified. The patient was prepped and draped in usual sterile fashion. Lidocaine 1% was used for local anesthesia. Catheter: 4 Eritrean One-step Yueh catheter. Side: LEFT Lower quadrant. Fluid Volume: 7000 ml Color: Clear yellow DISPOSITION: Discarded safely. Complications: None. Patient disposition: Discharged from the department in stable condition. US/US paracentesis abd w [id number] IMPRESSION: Uncomplicated ultrasound-guided paracentesis. Removal of 7,000 cc ascites
[2022-06-29 09:48] VITALS: BMI 33.4
[2022-06-29 10:22] VITALS: BP 137/88; PULSE 94; RESP 20; TEMP 37.4; O2SAT 93
== END 2022-06-29 10:25 | disposition home or self-care (01) ==
LOC: GILAB 08:34
PROVIDERS: Radiology Neuroradiology; PCP Nurse Practitioner Family; Visit Provider Internal Medicine
PROC: (CPT 49082; principal; 2022-06-29 09:30)
DX: R18.8 Other ascites (principal)
CPT/HCPCS: 49083

== ENCOUNTER 2022-07-13 10:10 | Emergency (ER) | payer MEDICARE, MEDICAID, SELFPAY ==
[2022-07-13] VITALS (12 sets, daily range): BP systolic 113–138; BP diastolic 71–92; PULSE 88–109; RESP 16–32; TEMP 37.1; O2SAT 90–95; BMI 32.0
--- NOTE | 2022-07-13 10:35 | ED_ITS ---
HPI - Abdominal Pain General: Chief Complaint: Abdominal Pain Stated Complaint: Stomach swelling Time Seen by Provider: 07/13/22 10:15 History of Present Illness: This 46-year-old man with alcoholic liver cirrhosis and ascites, presents to the ER with abdominal distention due to ascit es. He gets weekly paracentesis at [facility] but could not get there because Medicaid ride could not take him due to ice. Patient came to the ER instead, wanting an abdominal paracentesis. He has no nausea or vomiting but reports some shortness of breath and chest discomfort due to the ascites. He continues to drink alcohol (about 6 shots of whiskey daily) though he is currently cutting down on his intake. He is clinically stable. Associated Symptoms: Denies chills and dysuria Review of Systems Const: Denies: chills, body aches or change in appetite Eyes: Denies: change in vision or eye discharge ENMT: Denies: throat pain, dental pain or nasal discharge Card: Denies: chest pain or lightheadedness Resp: Reports: dyspnea (Due to abdominal distention) GI: Reports: abdominal pain (Abdominal distention) : Denies: dysuria Musc: Denies: neck pain or back pain Neuro: Denies: headache(s) or weakness in extremities Psych: Denies: depression Len/Lymph: Denies: easy bruising All/Imm: Denies: urticaria, tongue swelling or facial swelling PFSH ED PFSH: Medical History Acne rosacea ALC (alcoholic liver cirrhosis) Alcohol dependence, uncomplicated Bipolar disorder Cerebrovascular accident (CVA) Controlled diabetes mellitus with hyperglycemia Current smoker DM neuropathy, painful Essential (primary) hypertension History of alcohol abuse daily use of hard liquor History of coronary artery disease History of CVA (cerebrovascular accident) 2010 Right side weakness due to a bleed History of memory loss History of schizophrenia Homicidal ideation Mixed hyperlipidemia Nicotine dependence, cigarettes, uncomplicated Psoriasis Psychiatric care Seizure disorder Surgical History History of colonoscopy with polypectomy 2016 History of esophagogastroduodenoscopy (EGD) History of eye surgery History of heart artery stent Family History Other Dementia Diabetes Hypertension Lung disease Psychiatric illness Stroke Denies family history of Chronic kidney disease (CKD) Anesthesia complication Bleeding disorder Cancer Social History Smoking and tobacco status: current every day smoker cigarettes Packs smoked per day: 2.5 Years cigarettes smoked: 38 Second hand smoke exposure: Yes Smoking risk assessment/counseling performed?: Yes Alcohol intake: current Alcohol intake frequency: 0-2 Drinks per Day Alcohol ty pe: hard liquor Desire information about alcohol rehabilitation?: No Counseling given: No Desire information about substance/drug rehabilitation?: No Counseling given: No Adopted: No Caregiver/support person: Yes Lives independently: No Household members: friend(s) and caregiver Housing: Manufactured/Mobile home Marital status: Number of children: 8 service: No Current occupational status: disabled Pets and animals: Yes History of recent travel: Yes Details: month an a half ago Out of state: Yes Current gender identity: Male Physical Exam Const: COMMON NORMALS: patient oriented x3, no limitations and alert OTHER: Mild distress due to abdominal distention HENMT: COMMON NORMALS: normocephalic HEAD & SCALP: normocephalic Eye: COMMON NORMALS: EOMs intact bilaterally Neck/C-Spine: COMMON NORMALS: full ROM and supple Chest: COMMONS NORMALS: normal inspection of the chest Resp: COMMON NORMALS: normal respiratory effort, No retractions, No use of accessory muscles and clear to auscultation bilaterally AUSCULTATION: clear to auscultation bilaterally Cardio: COMMON NORMALS: regular rate, regular rhythm and No murmurs present (Cardio) RATE: regular rate RHYTHM: regular rhythm GI: COMMON NORMALS: Normal to inspection, nondistended, normoactive bowel sounds present and non-tender INSPECTION: Yes abdominal distension and Yes striae PALPATION: Yes Firmness to palpation present (GI) (Distended) and Yes Tenderness to palpation present (GI) (Nonfocal tenderness) : COMMON NORMALS: Yes no CVA tenderness BLADDER/KIDNEY EXAM: Yes no CVA tenderness Back/Pelvis: COMMON NORMALS: no CVA tenderness and no thoracic nor lumbar tenderness Extremity: GENERAL: Yes normal exam except as noted Neuro: COMMON NORMALS: patient oriented x3 and no focal motor deficits SENSORIUM/ORIENTATION: Yes alert Psych: COMMON NORMALS: mental status grossly normal and cooperative Course Consultations: Consultation #1: Case discussed with Dr. Flores with a view to getting an abdominal paracentesis. She will look into their schedule and get back to us. Time: 10:45 Consultation #2: Radiology department called to state that they will do the abdominal paracentesis later this afternoon. Time: 11:20 Vital Signs: Vital signs: Vital Signs Temperature 98.8 F 07/13/22 10:18 Pulse Rate 99 07/13/22 14:50 Respiratory Rate 16 07/13/22 14:50 Blood Pressure 127/84 07/13/22 14:50 Pulse Oximetry 93 07/13/22 14:50 Oxygen Delivery Me thod 07/13/22 14:50 MDM - Abdominal Pain Medical Decision Making Medical decision making: Patient presents to the ER primarily to get an abdominal paracentesis. He has been getting this weekly but was unable to get it at this time because his Medicaid ride could not take him to [facility] where he normally gets it. Paracentesis was subsequently done by interventional radiologist. Discharge instructions and reasons to return were discussed. Lab Data 07/13/22 10:43 07/13/22 10:43 Labs/Radiology: Radiology Impressions Paracentesis Ultrasound 07/13/22 11:17 IMPRESSION: Uncomplicated paracentesis yielding 5900 ml of peritoneal fluid. Laboratory Results WBC 7.0 10^3/uL (4.0-10.0) 07/13/22 10:43 RBC 4.33 10^6/uL (4.1-5.3) 07/13/22 10:43 Hgb 14.5 g/dL (11.7-16.6) 07/13/22 10:43 Hct 43.3 % (42.0-52.0) 07/13/22 10:43 MCV 100.0 fl (80-94) H 07/13/22 10:43 MCH 33.5 pg (28.0-34.0) 07/13/22 10:43 MCHC 33.5 g/dL (30.0-36.0) 07/13/22 10:43 RDW 13.6 % (12.1-15.1) 07/13/22 10:43 Plt Count 220 10^3/cmm (130-400) 07/13/22 10:43 MPV 9.8 fL (7.4-10.4) 07/13/22 10:43 Neut % (Auto) 65.5 % 07/13/22 10:43 Lymph % (Auto) 18.2 % 07/13/22 10:43 [place] % (Auto) 8.9 % 07/13/22 10:43 Eos % (Auto) 5.9 % 07/13/22 10:43 Baso % (Auto) 1.1 % 07/13/22 10:43 Neut # (Auto) 4.57 10^3/uL (1.8-7.7) 07/13/22 10:43 Lymph # (Auto) 1.3 10^3/uL (0.8-4.8) 07/13/22 10:43 [place] # (Auto) 0.6 10^3/uL (0.2-0.9) 07/13/22 10:43 Eos # (Auto) 0.4 10^3/uL (0.0-0.8) 07/13/22 10:43 Baso # (Auto) 0.1 10^3/uL (0.0-0.1) 07/13/22 10:43 Nucleated RBC % (auto) 0 % 07/13/22 10:43 Nucleated RBCs # 0.0 /100WBC 07/13/22 10:43 PT 15.80 SECONDS (12.1-14.9) H 07/13/22 10:43 INR 1.22 (0.8-1.2) H 07/13/22 10:43 Sodium 140 mmol/L (136-145) 07/13/22 10:43 Potassium 4.2 mmol/L (3.5-5.1) 07/13/22 10:43 Chloride 103 mmol/L (98-107) 07/13/22 10:43 Carbon Dioxide 26 mmol/L (22-29) 07/13/22 10:43 Anion Gap 15.2 (5-19) 07/13/22 10:43 BUN 2 mg/dL (6-20) L 07/13/22 10:43 Creatinine 0.5 mg/dL (0.7-1.2) L 07/13/22 10:43 GFR Calculation 177.5 mL/min (90-130) H 07/13/22 10:43 Glucose 113 mg/dL (65-115) 07/13/22 10:43 Calculated Osmolality 287 mOsm/kg (285-295) 07/13/22 10:43 Calcium 8.6 mg/dL (8.5-10.5) 07/13/22 10:43 Total Bilirubin 0.9 mg/dL (0.15-1.2) 07/13/22 10:43 AST 32 U/L (0-40) 07/13/22 10:43 ALT 10 U/L (0-41) 07/13/22 10:43 Alkaline Phosphatase 107 U/L (40-130) 07/13/22 10:43 Total Protein 6.6 g/dL (6.6-8.7) 07/13/22 10:43 Albumin 2.9 g/dL (3.5-5.2) L 07/13/22 10:43 Globulin 3.7 g/dL (1.3-4.6) 07/13/22 10:43 Ethyl Alcohol 159 mg/dL (0-10) H 07/13/22 10:43 Discharge Plan Discharge Patient Disposition: Home Clinical Impression: Alcoholic cirrhosis of liver with ascites Condition: Stable Prescriptions: No Action levetiracetam 750 mg tablet 750 mg PO BID 30 Days Qty: 60 1RF spironolactone 100 mg tablet 100 mg PO DAILY midodrine 5 mg tablet 5 mg PO BID citalopram 20 mg tablet 10 mg PO QAM lactulose 10 gram/15 mL solution 30 ml PO TID PRN (Reason: Constipation) Tab-A-Kimberlyn 400 mcg tablet 1 tab PO DAILY Invega Sustenna 234 mg/1.5 mL syringe 234 mg IM Q30D Qty: 1.5 1RF Rx Instructions: Next dose 06/22/2022 hydrocodone-acetaminophen 5-325 mg Tablet 1 tab PO Q6H PRN (Reason: Pain) Discharge Orders: Discharge ED (Routine); Ordered 07/13/22 Ordered By: Sharri Mast Referrals: Jewell Hugo FNP-C [Primary Care Provider] - Discharge Diet: Usual diet Discharge Activity: Resume usual activity Patient Instructions: Opioid Safety, Pain Management Activity Restrictions/Additional Instructions: Call your primary care physician's office as soon as possible to schedule a follow-up visit. Return if you develop new or worsening symptoms. Coding Level of Care Code ED Environmental Programs Manager for Chg Fwd Exam Comprehensive
--- NOTE | 2022-07-13 10:37 | ECG_ITS ---
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 Measurements Intervals [place] Rate: 91 P: 36 KS: 146 QRS: -12 QRSD: 103 T: -8 QT: 385 QTc: 475 Interpretive Statements SINUS RHYTHM LOW QRS VOLTAGE IN PRECORDIAL LEADS [QRS DEFLECTION < 1.0 mV IN CHEST LEADS] POSSIBLE ANTERIOR MYOCARDIAL INFARCTION , PROBABLY OLD [30 ms Q WAVE IN V3/V4, OR R < 0.2 mV IN V4] Compared to ECG 06/05/2022 11:22:18 Low QRS voltage now present Sinus tachycardia no longer present Myocardial infarct finding still present Electronically Signed On 07-13-2022 23:26:51 CHAINSTITCH HEMMER by Skip Abdul M.D. [email or web address] general hospitalOmtool, [email or web address]/[id number]
[2022-07-13 10:55] LABS: Basophils # 0.1 10^3/uL (0.0-0.1); Basophils % 1.1 %; Eosinophils # 0.4 10^3/uL (0.0-0.8); Eosinophils % 5.9 %; Hematocrit 43.3 % (42.0-52.0); Hemoglobin 14.5 g/dL (11.7-16.6); Lymphocytes # 1.3 10^3/uL (0.8-4.8); Lymphocytes % 18.2 %; Mean Corpuscular HGB Conc 33.5 g/dL (30.0-36.0); Mean Corpuscular Hemoglobin 33.5 pg (28.0-34.0); Mean Platelet Volume 9.8 fL (7.4-10.4); Monocytes # 0.6 10^3/uL (0.2-0.9); Monocytes % 8.9 %; Neutrophils # 4.57 10^3/uL (1.8-7.7); Neutrophils % 65.5 %; Nucleated Red Blood Cells % 0 %; Platelet Count 220 10^3/cmm (130-400); Red Blood Count 4.33 10^6/uL (4.1-5.3); Red Cell Distribution Width 13.6 % (12.1-15.1)
--- NOTE | 2022-07-13 11:01 | PC.PHAR ---
pt states he,luisa and his all help with his medications-pt states he hasnt had his invega sustenna injection for a month ext med history shows last filled 05/21/22 30d/s-ext med history shows vit b-1 100mg daily protonix 40mg daily and folic acid 1mg daily filled on 06/13/22 30d/s pt states he doesnt take those medications-pt states he no longer takes lasix 40mg daily filled 04/16/22 30d/s-pt states he hasnt taken metformin for over a year ext med history shows last filled metformin er 500mg bid filled 12/21/21 90d/s-notes are made in the pharmacy comments
[2022-07-13 11:12] LABS: INR 1.22 (0.8-1.2)
[2022-07-13 11:17] LABS: Alanine Aminotransferase 10 U/L (0-41); Albumin Level 2.9 g/dL (3.5-5.2); Alcohol Level 159 mg/dL (0-10); Alkaline Phosphatase 107 U/L (40-130); Anion Gap 15.2 (5-19); Aspartate Amino Transferase 32 U/L (0-40); Blood Urea Nitrogen 2 mg/dL (6-20); Calcium 8.6 mg/dL (8.5-10.5); Carbon Dioxide 26 mmol/L (22-29); Chloride 103 mmol/L (98-107); Globulin 3.7 g/dL (1.3-4.6); Glomerular Filtration Rate 177.5 mL/min (90-130); Glucose 113 mg/dL (65-115); Osmolality Calculated 287 mOsm/kg (285-295); Potassium 4.2 mmol/L (3.5-5.1); Sodium 140 mmol/L (136-145); Total Bilirubin 0.9 mg/dL (0.15-1.2); Total Protein 6.6 g/dL (6.6-8.7)
--- NOTE | 2022-07-13 11:17 | US_ITS ---
WS: [id number] ULTRASOUND-GUIDED THERAPEUTIC PARACENTESIS Procedure, risks, and complications have been explained to the patient. Consent is obtained. Utilizing aseptic technique and 1% buffered lidocaine, a small dermatome was made through which a 5 F rench Yueh catheter was inserted. Approximately 5900 ml of clear peritoneal fluid was obtained witho ut difficulty. No complications encountered. US/US paracentesis abd w [id number] IMPRESSION: Uncomplicated paracentesis yielding 5900 ml of peritoneal fluid.
== END 2022-07-13 14:51 | disposition home or self-care (01) ==
PROVIDERS: Emergency Provider Family Medicine; PCP Nurse Practitioner Family
DX: R14.0 Abdominal distension (gaseous) (principal); K70.31 Alcoholic cirrhosis of liver with ascites
CPT/HCPCS: 49083; 80053; 80307; 85025; 85610; 87070; 87075; 87205; 93005; 99285

== ENCOUNTER 2022-07-23 10:59 | Emergency (ER) | payer MEDICARE, MEDICAID, SELFPAY ==
[2022-07-23 11:08] VITALS: BP 169/91; PULSE 135; RESP 24; TEMP 37.3; O2SAT 93
--- NOTE | 2022-07-23 11:11 | ECG_ITS ---
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 Measurements Intervals [place] Rate: 125 P: 29 ME: 156 QRS: -15 QRSD: 80 T: 4 QT: 309 QTc: 446 Interpretive Statements SINUS TACHYCARDIA SEPTAL MYOCARDIAL INFARCTION , PROBABLY OLD [40+ ms Q WAVE IN V1/V2] INTERPRETATION BASED ON A DEFAULT AGE OF 40 YEARS Compared to ECG 07/13/2022 10:37:23 Sinus rhythm no longer present Myocardial infarct finding still present Electronically Signed On 07-23-2022 14:38:03 THERAPY TEACHER by Cameron Le M.D. [id number]
[2022-07-23 11:40] VITALS: BP 118/90; PULSE 125; RESP 27; O2SAT 93
--- NOTE | 2022-07-23 11:40 | XRR_ITS ---
PROCEDURE INFORMATION: Exam: XR Chest Exam date and time: 07/23/2022 12:15 PM Age: 46 years old Clinical indication: Cough and dyspnea; Additional info: Dyspnea; Cough; Chest pain TECHNIQUE: Imaging protocol: Radiologic exam of the chest. Views: 1 view. COMPARISON: CR (CHEST, ) 06/09/2022 9:08 AM FINDINGS: Lungs: Unremarkable. No consolidation. Pleural spaces: Unremarkable. No pleural effusion. No pneumothorax. Heart/Mediastinum: Unremarkable. No cardiomegaly. Bones/joints: Unremarkable. XR/XR chest 1V portable [id number] IMPRESSION: No acute findings.
--- NOTE | 2022-07-23 12:02 | W.ED.CHESTPA ---
HPI - Chest Pain General: Chief Complaint: Chest Pain Stated Complaint: abd swelling Time Seen by Provider: 07/23/22 11:18 Source: patient Mode of arrival: ambulatory Limitations: no limitations History of Present Illness: See nursing assessment. Patient with complaints of increased ascites over the last 4 days. He states he had paracentesis done 5 days ago. He states he normally gets paracentesis every for 5 days due to chronic ascites from alcoholic liver disease. Patient states he had shortness of breath, chest pain and nonproductive cough today. He denies any fever. He does report black stools. States he does not have very much stool output though. States he has been taking his lactulose and spironolactone and Keppra. Denies any previous esophageal problems or peptic ulcer disease. States he still drinks alcohol and had alcohol this morning. Denies any previous abdominal surgeries except for chronic intermittent paracentesis for ascites removal. States he does smoke cigarettes he does drink alcohol daily. Denies any abdominal pain or fever. Cough has been nonproductive. Associated symptoms: Reports dyspnea; Deny abdominal pain, fever(s), nausea, palpitations, syncope or vomiting Review of Systems Const: Denies: fever(s) or chills Eyes: Denies: change in vision ENMT: Denies: throat pain Card: Reports: chest pain and swelling of feet/ankles; Denies: palpitations, lightheadedness or syncope Resp: Reports: dyspnea and non-productive cough; Denies: wheezing or stridor GI: Denies: abdominal pain, nausea or vomiting : Denies: flank pain Musc: Denies: neck pain or back pain Skin/Breast: Denies: rash or pruritus Neuro: Denies: headache(s) or numbness in extremities Psych: Denies: anxiety Len/Lymph: Denies: enlarged lymph nodes PFSH ED PFSH: Medical History Acne rosacea ALC (alcoholic liver cirrhosis) Alcohol dependence, uncomplicated Bipolar disorder Cerebrovascular accident (CVA) Controlled diabetes mellitus with hyperglycemia Current smoker DM neuropathy, painful Essential (primary) hypertension History of alcohol abuse daily use of hard liquor History of coronary artery disease History of CVA (cerebrovascular accident) 2010 Right side weakness due to a bleed History of memory loss History of schizophrenia Homicidal ideation Mixed hyperlipidemia Nicotine dependence, cigarettes, uncomplicated Psoriasis Psychiatric care Seizure disorder Surgical History History of colonoscopy with polypectomy 2016 History of esophagogastroduodenoscopy (EGD) History of eye surgery History of heart artery stent Family History Other Dementia Diabetes Hypertension Lung disease Psychiatric illness Stroke Denies family history of Chronic kidney disease (CKD) Anesthesia complication Bleeding disorder Cancer Social History Smoking and tobacco status: current every day smoker cigarettes Packs smoked per day: 2.5 Years cigarettes smoked: 38 Second hand smoke exposure: Yes Smoking risk assessment/counseling performed?: Yes Alcohol intake: current Alcohol intake frequency: 0-2 Drinks per Day Alcohol type: hard liquor Desire information about alcohol rehabilitation?: No Counseling given: No Desire information about substance/drug rehabilitation?: No Counseling given: No Adopted: No Caregiver/support person: Yes Lives independently: No Household members: friend(s) and caregiver Housing: Manufactured/Mobile home Marital status: Number of children: 8 service: No Current occupational status: disabled Pets and animals: Yes History of recent travel: Yes Details: month an a half ago Out of state: Yes Current gender identity: Male Supplemental [facility] Information: Patient denies any previous surgical history. Physical Exam Const: COMMON NORMALS: no acute distress, patient oriented x3, no limitations and well nourished GENERAL APPEARANCE: cooperative HENMT: COMMON NORMALS: normocephalic and atraumatic HEAD & SCALP: normocephalic and atraumatic FACE & SINUS: normal facial exam Eye: COMMON NORMALS: EOMs intact bilaterally Neck/C-Spine: COMMON NORMALS: full ROM, no lymphadenopathy, supple and no meningeal signs GENERAL: Yes normal visual inspection Lymph: LYMPHATIC: no lymphadenopathy noted Chest: COMMONS NORMALS: normal inspection of the chest and normal palpation of entire chest wall CHEST: No Ecchymosis present and No rash Resp: COMMON NORMALS: normal respiratory effort and No retractions EFFORT & INSPECTION: No respiratory distress OTHER: Mild rhonchi throughout. Cardio: COMMON NORMALS: regular rhythm and Peripheral pulses 2+ throughout JUGULAR VENOUS DISTENTION: no JVD RHYTHM: regular rhythm PERIPHERAL PULSES: Peripheral pulses 2+ throughout GI: OTHER: Normoactive bowel sounds throughout. No masses palpated. Patient has moderate ascites and moderate abdominal distention. Dullness to percussion in lower two thirds of his abdomen. Rectal exam shows plaque psoriasis. Anus is normal. Very little stool in the rectum. Stool is brown in color. Stool is guaiac negative. No evidence of blood. No masses palpated. No impaction. : COMMON NORMALS: Yes no CVA tenderness BLADDER/KIDNEY EXAM: Yes no CVA tenderness Back/Pelvis: COMMON NORMALS: no CVA tenderness Extremity: COMMON NORMALS: full ROM and capillary refill normal OTHER: 1+ pitting edema lower extremities bilaterally. Neuro: COMMON NORMALS: patient oriented x3, CN's II-XII intact bilaterally, no focal motor deficits and no sensory deficits noted MENINGEAL SIGNS: Yes no meningeal signs Psych: COMMON NORMALS: mental status grossly normal and Normal thought process present THOUGHT PROCESS: Normal thought process present Skin: COMMON NORMALS: no rashes or lesions noted and no wounds GENERAL SKIN EXAM: no rashes or lesions noted Course Vital Signs: Vital signs: Vital Signs Temperature 99.2 F 07/23/22 11:08 Pulse Rate 119 H 07/23/22 15:24 Respiratory Rate 25 H 07/23/22 15:24 Blood Pressure 156/103 07/23/22 15:24 Pulse Oximetry 93 07/23/22 15:24 Oxygen Delivery Me thod 07/23/22 13:55 MDM - Chest Pain Medical Decision Making Chronic alcoholic liver failure with chronic ascites. Patient also with chest pain and shortness of breath. 1325: Discussed case with radiologist Dr. Hunter. He suggested that order stat ultrasound guided paracentesis in the emergency room. Order placed. Radiologist performed paracentesis. Patient had total of 9600 cc of ascites drained off. Lab Data 07/23/22 11:52 07/23/22 11:52 Radiology Impressions Chest X-Ray 07/23/22 11:40 IMPRESSION: No acute findings. Laboratory Results WBC 8.4 10^3/uL (4.0-10.0) 07/23/22 11:52 RBC 4.53 10^6/uL (4.1-5.3) 07/23/22 11:52 Hgb 14.7 g/dL (11.7-16.6) 07/23/22 11:52 Hct 43.8 % (42.0-52.0) 07/23/22 11:52 MCV 96.7 fl (80-94) H 07/23/22 11:52 MCH 32.5 pg (28.0-34.0) 07/23/22 11:52 MCHC 33.6 g/dL (30.0-36.0) 07/23/22 11:52 RDW 13.6 % (12.1-15.1) 07/23/22 11:52 Plt Count 179 10^3/cmm (130-400) 07/23/22 11:52 MPV 9.9 fL (7.4-10.4) 07/23/22 11:52 Neut % (Auto) 74.3 % 07/23/22 11:52 Lymph % (Auto) 12.6 % 07/23/22 11:52 [place] % (Auto) 8.2 % 07/23/22 11:52 Eos % (Auto) 3.4 % 07/23/22 11:52 Baso % (Auto) 1.1 % 07/23/22 11:52 Neut # (Auto) 6.26 10^3/uL (1.8-7.7) 07/23/22 11:52 Lymph # (Auto) 1.1 10^3/uL (0.8-4.8) 07/23/22 11:52 [place] # (Auto) 0.7 10^3/uL (0.2-0.9) 07/23/22 11:52 Eos # (Auto) 0.3 10^3/uL (0.0-0.8) 07/23/22 11:52 Baso # (Auto) 0.1 10^3/uL (0.0-0.1) 07/23/22 11:52 Nucleated RBC % (auto) 0 % 07/23/22 11:52 Nucleated RBCs # 0.0 /100WBC 07/23/22 11:52 PT 15.90 SECONDS (12.1-14.9) H 07/23/22 11:52 INR 1.23 (0.8-1.2) H 07/23/22 11:52 APTT 33.7 SECONDS (23.9-36.7) 07/23/22 11:52 Sodium 135 mmol/L (136-145) L 07/23/22 11:52 Potassium 4.1 mmol/L (3.5-5.1) 07/23/22 11:52 Chloride 101 mmol/L (98-107) 07/23/22 11:52 Carbon Dioxide 24 mmol/L (22-29) 07/23/22 11:52 Anion Gap 14.1 (5-19) 07/23/22 11:52 BUN 3 mg/dL (6-20) L 07/23/22 11:52 Creatinine 0.5 mg/dL (0.7-1.2) L 07/23/22 11:52 GFR Calculation 177.5 mL/min (90-130) H 07/23/22 11:52 Glucose 115 mg/dL (65-115) 07/23/22 11:52 Calculated Osmolality 277 mOsm/kg (285-295) L 07/23/22 11:52 Calcium 8.2 mg/dL (8.5-10.5) L 07/23/22 11:52 Total Bilirubin 1.2 mg/dL (0.15-1.2) 07/23/22 11:52 AST 43 U/L (0-40) H 07/23/22 11:52 ALT 12 U/L (0-41) 07/23/22 11:52 Alkaline Phosphatase 98 U/L (40-130) 07/23/22 11:52 Ammonia 56 umol/L (16-60) 07/23/22 11:52 Troponin T Baseline 10 ng/L (0-15) 07/23/22 11:52 Troponin T 120 Minute 13.33 ng/L (0-15) 07/23/22 13:52 Delta Troponin T 3.33 ABS# (0-10) 07/23/22 13:52 NT-Pro-B Natriuret Pep 60 pg/mL (0-125) 07/23/22 11:52 Total Protein 6.3 g/dL (6.6-8.7) L 07/23/22 11:52 Albumin 2.8 g/dL (3.5-5.2) L 07/23/22 11:52 Globulin 3.5 g/dL (1.3-4.6) 07/23/22 11:52 Lipase 66 U/L (13-60) H 07/23/22 11:52 Urine Color Dark yellow (Yellow) 07/23/22 12:31 Urine Appearance Sl hazy (CLEAR) A 07/23/22 12:31 Urine pH 5 (5-7) 07/23/22 12:31 Ur Specific [place] 1.025 (1.005-1.030) 07/23/22 12:31 Urine Protein Trace (Negative) 07/23/22 12:31 Urine Glucose (UA) Norm (Normal) 07/23/22 12:31 Urine Ketones 1+ (Negative) H 07/23/22 12:31 Urine Blood Neg (Negative) 07/23/22 12:31 Urine Nitrate Negative (Negative) 07/23/22 12:31 Urine Bilirubin 1+ (Negative) H 07/23/22 12:31 Urine Urobilinogen 8 mg/dL (Negative) H 07/23/22 12:31 Ur Leukocyte Esterase Trace (Negative) H 07/23/22 12:31 Urine RBC None /hpf (0-2) 07/23/22 12:31 Urine WBC 0-4 /hpf (0-5) H 07/23/22 12:31 Ur Squamous Epith Cells None /hpf (0-5) 07/23/22 12:31 Calcium Oxalate Crystal 0-4 /hpf H 07/23/22 12:31 Amorphous Sediment Not Reportable 07/23/22 12:31 Urine Bacteria Trace /hpf (NONE) 07/23/22 12:31 Hyaline Casts 0-4 /lpf H 07/23/22 12:31 Urine Mucus 4+ /hpf 07/23/22 12:31 Urine Yeast 1+ /hpf H 07/23/22 12:31 Ethyl Alcohol 23 mg/dL (0-10) H 07/23/22 11:52 SARS-CoV-2 Ag (Rapid) negative (Negative) 07/23/22 12:28 Imaging Data CXR: I personally reviewed and interpreted this imaging study as follows: My impression: Minimal pulmonary congestion. Relatively unchanged from previous chest x-ray. Actually looks a little bit better than previous chest x-ray. No free air under the diaphragm. No pneumothorax. No pneumonia. Possibly could be just mild atelectasis in the left lung that is unchanged from previous. EKG Data EKG 1: I personally reviewed and interpreted this EKG as follows: EKG interpretation date: 07/23/22 EKG interpretation time: 11:18 Interpretation: Impression sinus tachycardia with heart rate 125. Low voltage pattern. Mild left axis. Normal QRS. Normal ST segment. Normal [place] interval, normal QT interval. Normal P waves, normal T waves. EKG 2: I personally reviewed and interpreted this EKG as follows: EKG interpretation date: 07/23/22 EKG interpretation time: 13:47 Prior EKG tracings: available for review (Unchanged from previous EKG.) Interpretation: Impression sinus tachycardia with heart rate 112. Mild left axis. Normal FL interval, normal QT interval, normal P waves, normal T waves, normal ST segment. Normal QRS. No change from previous EKG earlier today. Discharge Plan Discharge Patient Disposition: Home Clinical Impression: Ascites Qualifiers: Ascites type: due to alcoholic cirrhosis Qualified Code(s): K70.31 - Alcoholic cirrhosis of liver with ascites Chest pain Qualifiers: Chest pain type: unspecified Qualified Code(s): R07.9 - Chest pain, unspecified Condition: Stable Prescriptions: No Action levetiracetam 750 mg tablet 750 mg PO BID 30 Days Qty: 60 1RF spironolactone 100 mg tablet 100 mg PO DAILY midodrine 5 mg tablet 5 mg PO BID PRN (Reason: Hypotension) citalopram 20 mg tablet 10 mg PO QAM lactulose 10 gram/15 mL solution 30 ml PO TID PRN (Reason: Constipation) Invega Sustenna 234 mg/1.5 mL syringe 234 mg IM Q30D Qty: 1.5 1RF Rx Instructions: Next dose 06/22/2022 Discharge Orders: Discharge ED (Routine); Ordered 07/23/22 Ordered By: Charli White Referrals: Jewell Hugo FNP-C [Primary Care Provider] - Discharge Diet: Advance as tolerated Discharge Activity: Increase activity as tolerated Patient Instructions: Ascites (ED) Activity Restrictions/Additional Instructions: Follow-up with your doctor that does management of your ascites next week as scheduled. Coding Level of Care Code ED Welcome Desk Agent for Carlos Armstrong
[2022-07-23 12:07] LABS: Basophils # 0.1 10^3/uL (0.0-0.1); Basophils % 1.1 %; Eosinophils # 0.3 10^3/uL (0.0-0.8); Eosinophils % 3.4 %; Hematocrit 43.8 % (42.0-52.0); Hemoglobin 14.7 g/dL (11.7-16.6); Lymphocytes # 1.1 10^3/uL (0.8-4.8); Lymphocytes % 12.6 %; Mean Corpuscular HGB Conc 33.6 g/dL (30.0-36.0); Mean Corpuscular Hemoglobin 32.5 pg (28.0-34.0); Mean Corpuscular Volume 96.7 fl (80-94); Mean Platelet Volume 9.9 fL (7.4-10.4); Monocytes # 0.7 10^3/uL (0.2-0.9); Monocytes % 8.2 %; Neutrophils # 6.26 10^3/uL (1.8-7.7); Neutrophils % 74.3 %; Nucleated Red Blood Cells % 0 %; Platelet Count 179 10^3/cmm (130-400); Red Blood Count 4.53 10^6/uL (4.1-5.3); Red Cell Distribution Width 13.6 % (12.1-15.1); White Blood Count 8.4 10^3/uL (4.0-10.0)
[2022-07-23 12:23] LABS: INR 1.23 (0.8-1.2)
[2022-07-23 12:24] LABS: Partial Thromboplastin Time 33.7 SECONDS (23.9-36.7)
[2022-07-23 12:27] LABS: Ammonia 56 umol/L (16-60)
[2022-07-23 12:30] LABS: Troponin(5th) Baseline 10 ng/L (0-15)
[2022-07-23 12:38] LABS: Alanine Aminotransferase 12 U/L (0-41); Albumin Level 2.8 g/dL (3.5-5.2); Alcohol Level 23 mg/dL (0-10); Alkaline Phosphatase 98 U/L (40-130); Aspartate Amino Transferase 43 U/L (0-40); Blood Urea Nitrogen 3 mg/dL (6-20); Calcium 8.2 mg/dL (8.5-10.5); Carbon Dioxide 24 mmol/L (22-29); Chloride 101 mmol/L (98-107); Globulin 3.5 g/dL (1.3-4.6); Glomerular Filtration Rate 177.5 mL/min (90-130); Glucose 115 mg/dL (65-115); Lipase 66 U/L (13-60); NT Pro B Type Natriuretic Pept 60 pg/mL (0-125); Osmolality Calculated 277 mOsm/kg (285-295); Sodium 135 mmol/L (136-145); Total Bilirubin 1.2 mg/dL (0.15-1.2); Total Protein 6.3 g/dL (6.6-8.7)
[2022-07-23 12:39] LABS: Anion Gap 14.1 (5-19); Potassium 4.1 mmol/L (3.5-5.1)
[2022-07-23 13:09] LABS: SARS Covid-2 Antigen negative (Negative)
[2022-07-23 13:14] LABS: Blood Urine Neg (Negative); Glucose Urine UA Norm (Normal); Ketones Urine 1+ (Negative); Protein Urine Trace (Negative); Specific Gravity, Urine 1.025 (1.005-1.030); Urine Color Dark Yellow (Yellow); pH Urine 5 (5-7)
[2022-07-23 13:15] LABS: Bacteria Urine TRACE /hpf; Bilirubin Urine 1+ (Negative); Calcium Oxalate Crystals Urine 0-4 /hpf; Hyaline Casts Urine 0-4 /lpf; Leukocyte Esterase Urine Trace (Negative); Mucus Urine 4+ /hpf; Nitrate Urine Negative (Negative); Urobilinogen Urine 8 mg/dL (Negative); WBC Urine 0-4 /hpf (0-5)
[2022-07-23 13:17] LABS: Urine Appearance SL Hazy (CLEAR)
[2022-07-23 13:18] LABS: Add Urine Culture? No
--- NOTE | 2022-07-23 13:30 | US_ITS ---
WS: [id number] ULTRASOUND-GUIDED PARACENTESIS CLINICAL INFORMATION: moderate to severe ascites; abdominal distension COMPARISON: None. Procedure Informed consent: The risks, benefits, and alternatives of the procedure were discussed with the juan antonio ent. Verbal and written consent was obtained. Timeout: A timeout was performed to confirm the correct patient, procedure, and site. Preparation: A suitable skin site was identified. The patient was prepped and draped in usual sterile fashion. Lidocaine 1% was used for local anesthesia. Catheter: 4 [place] One-step Yueh catheter. Side: RIGHT Lower quadrant. Fluid Volume: 9600 ml Color: Clear yellow DISPOSITION: Discarded safely. Complications: None. Patient disposition: Discharged from the department in stable condition. US/US paracentesis abd w [id number] IMPRESSION: Uncomplicated ultrasound-guided paracentesis. Removal of 9600 cc
--- NOTE | 2022-07-23 13:44 | ECG_ITS ---
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 Measurements Intervals [place] Rate: 112 P: 28 RI: 142 QRS: -31 QRSD: 81 T: 28 QT: 333 QTc: 455 Interpretive Statements SINUS TACHYCARDIA POSSIBLE ANTERIOR MYOCARDIAL INFARCTION , PROBABLY OLD [30 ms Q WAVE IN V3/V4, OR R < 0.2 mV IN V4] INFERIOR MYOCARDIAL INFARCTION , PROBABLY OLD [40+ ms Q WAVE AND/OR ST/T ABNORMALITY IN II/aVF] Compared to ECG 07/23/2022 11:15:19 No significant changes Electronically Signed On 07-23-2022 14:39:19 WINE MAKER by Cameron Le M.D. [id number]
[2022-07-23 13:55] VITALS: BP 156/103; PULSE 114; RESP 20; O2SAT 93
[2022-07-23 14:30] LABS: Troponin 5 2HR 13.33 ng/L (0-15)
[2022-07-23 14:37] LABS: Troponin 5 2HR Delta 3.33 ABS# (0-10)
[2022-07-23 15:24] VITALS: BP 156/103; PULSE 119; RESP 25; O2SAT 93
--- NOTE | 2022-07-23 17:33 | PC.NURSE ---
paracentesis complete, 9600ml taken off, Dr Hunter aware of large amount
--- NOTE | 2022-07-23 17:42 | ECG_ITS ---
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 Measurements Intervals [place] Rate: 99 P: 109 NC: 123 QRS: -1 QRSD: 97 T: 23 QT: 371 QTc: 477 Interpretive Statements SINUS RHYTHM WITH FREQUENT VENTRICULAR PREMATURE COMPLEXES Compared to ECG 07/23/2022 13:44:33 Ventricular premature complex(es) now present Sinus tachycardia no longer present Myocardial infarct finding no longer present Electronically Signed On 07-23-2022 17:46:35 CITRIX ADMINISTRATOR by Skip Abdul M.D. [id number]
[2022-07-23 18:24] VITALS: BP 128/72; PULSE 94; RESP 18; O2SAT 93
--- NOTE | 2022-07-23 18:36 | ED_ITS ---
HPI - Chest Pain General: Chief Complaint: Chest Pain Stated Complaint: abd swelling Time Seen by Provider: 07/23/22 11:18 Source: patient Mode of arrival: ambulatory Limitations: no limitations History of Present Illness: ER addendum note for EKG. Review of Systems General: Reports: Other (ER addendum note for EKG) [facility] ED PFSH: Medical History Acne rosacea ALC (alcoholic liver cirrhosis) Alcohol dependence, uncomplicated Bipolar disorder Cerebrovascular accident (CVA) Controlled diabetes mellitus with hyperglycemia Current smoker DM neuropathy, painful Essential (primary) hypertension History of alcohol abuse daily use of hard liquor History of coronary artery disease History of CVA (cerebrovascular accident) 2009 Right side weakness due to a bleed History of memory loss History of schizophrenia Homicidal ideation Mixed hyperlipidemia Nicotine dependence, cigarettes, uncomplicated Psoriasis Psychiatric care Seizure disorder Surgical History History of colonoscopy with polypectomy 2015 History of esophagogastroduodenoscopy (EGD) History of eye surgery History of heart artery stent Family History Other Dementia Diabetes Hypertension Lung disease Psychiatric illness Stroke Denies family history of Chronic kidney disease (CKD) Anesthesia complication Bleeding disorder Cancer Social History Smoking and tobacco status: current every day smoker cigarettes Packs smoked per day: 2.5 Years cigarettes smoked: 38 Second hand smoke exposure: Yes Smoking risk assessment/counseling performed?: Yes Alcohol intake: current Alcohol intake frequency: 0-2 Drinks per Day Alcohol type: hard liquor Desire information about alcohol rehabilitation?: No Counseling given: No Desire information about substance/drug rehabilitation?: No Counseling given: No Adopted: No Caregiver/support person: Yes Lives independently: No Household members: friend(s) and caregiver Housing: Manufactured/Mobile home Marital status: Number of children: 8 service: No Current occupational status: disabled Pets and animals: Yes History of recent travel: Yes Details: month an a half ago Out of state: Yes Current gender identity: Male Supplemental [facility] Information: ER addendum note for EKG Physical Exam Narrative: EXAM NARRATIVE: ER addendum note for EKG Course Vital Signs: Vital signs: Vital Signs Temperature 99.2 F 07/23/22 11:08 Pulse Rate 94 07/23/22 18:24 Respiratory Rate 18 07/23/22 18:24 Blood Pressure 128/72 07/23/22 18:24 Pulse Oximetry 93 07/23/22 18:24 Oxygen Delivery Me thod 07/23/22 13:55 MDM - Chest Pain Medical Decision Making ER addendum note for EKG Lab Data 07/23/22 11:52 07/23/22 11:52 Radiology Impressions Chest X-Ray 07/23/22 11:40 IMPRESSION: No acute findings. Laboratory Results WBC 8.4 10^3/uL (4.0-10.0) 07/23/22 11:52 RBC 4.53 10^6/uL (4.1-5.3) 07/23/22 11:52 Hgb 14.7 g/dL (11.7-16.6) 07/23/22 11:52 Hct 43.8 % (42.0-52.0) 07/23/22 11:52 MCV 96.7 fl (80-94) H 07/23/22 11:52 MCH 32.5 pg (28.0-34.0) 07/23/22 11:52 MCHC 33.6 g/dL (30.0-36.0) 07/23/22 11:52 RDW 13.6 % (12.1-15.1) 07/23/22 11:52 Plt Count 179 10^3/cmm (130-400) 07/23/22 11:52 MPV 9.9 fL (7.4-10.4) 07/23/22 11:52 Neut % (Auto) 74.3 % 07/23/22 11:52 Lymph % (Auto) 12.6 % 07/23/22 11:52 [place] % (Auto) 8.2 % 07/23/22 11:52 Eos % (Auto) 3.4 % 07/23/22 11:52 Baso % (Auto) 1.1 % 07/23/22 11:52 Neut # (Auto) 6.26 10^3/uL (1.8-7.7) 07/23/22 11:52 Lymph # (Auto) 1.1 10^3/uL (0.8-4.8) 07/23/22 11:52 [place] # (Auto) 0.7 10^3/uL (0.2-0.9) 07/23/22 11:52 Eos # (Auto) 0.3 10^3/uL (0.0-0.8) 07/23/22 11:52 Baso # (Auto) 0.1 10^3/uL (0.0-0.1) 07/23/22 11:52 Nucleated RBC % (auto) 0 % 07/23/22 11:52 Nucleated RBCs # 0.0 /100WBC 07/23/22 11:52 PT 15.90 SECONDS (12.1-14.9) H 07/23/22 11:52 INR 1.23 (0.8-1.2) H 07/23/22 11:52 APTT 33.7 SECONDS (23.9-36.7) 07/23/22 11:52 Sodium 135 mmol/L (136-145) L 07/23/22 11:52 Potassium 4.1 mmol/L (3.5-5.1) 07/23/22 11:52 Chloride 101 mmol/L (98-107) 07/23/22 11:52 Carbon Dioxide 24 mmol/L (22-29) 07/23/22 11:52 Anion Gap 14.1 (5-19) 07/23/22 11:52 BUN 3 mg/dL (6-20) L 07/23/22 11:52 Creatinine 0.5 mg/dL (0.7-1.2) L 07/23/22 11:52 GFR Calculation 177.5 mL/min (90-130) H 07/23/22 11:52 Glucose 115 mg/dL (65-115) 07/23/22 11:52 Calculated Osmolality 277 mOsm/kg (285-295) L 07/23/22 11:52 Calcium 8.2 mg/dL (8.5-10.5) L 07/23/22 11:52 Total Bilirubin 1.2 mg/dL (0.15-1.2) 07/23/22 11:52 AST 43 U/L (0-40) H 07/23/22 11:52 ALT 12 U/L (0-41) 07/23/22 11:52 Alkaline Phosphatase 98 U/L (40-130) 07/23/22 11:52 Ammonia 56 umol/L (16-60) 07/23/22 11:52 Troponin T Baseline 10 ng/L (0-15) 07/23/22 11:52 Troponin T 120 Minute 13.33 ng/L (0-15) 07/23/22 13:52 Delta Troponin T 3.33 ABS# (0-10) 07/23/22 13:52 NT-Pro-B Natriuret Pep 60 pg/mL (0-125) 07/23/22 11:52 Total Protein 6.3 g/dL (6.6-8.7) L 07/23/22 11:52 Albumin 2.8 g/dL (3.5-5.2) L 07/23/22 11:52 Globulin 3.5 g/dL (1.3-4.6) 07/23/22 11:52 Lipase 66 U/L (13-60) H 07/23/22 11:52 Urine Color Dark yellow (Yellow) 07/23/22 12:31 Urine Appearance Sl hazy (CLEAR) A 07/23/22 12:31 Urine pH 5 (5-7) 07/23/22 12:31 Ur Specific [place] 1.025 (1.005-1.030) 07/23/22 12:31 Urine Protein Trace (Negative) 07/23/22 12:31 Urine Glucose (UA) Norm (Normal) 07/23/22 12:31 Urine Ketones 1+ (Negative) H 07/23/22 12:31 Urine Blood Neg (Negative) 07/23/22 12:31 Urine Nitrate Negative (Negative) 07/23/22 12:31 Urine Bilirubin 1+ (Negative) H 07/23/22 12:31 Urine Urobilinogen 8 mg/dL (Negative) H 07/23/22 12:31 Ur Leukocyte Esterase Trace (Negative) H 07/23/22 12:31 Urine RBC None /hpf (0-2) 07/23/22 12:31 Urine WBC 0-4 /hpf (0-5) H 07/23/22 12:31 Ur Squamous Epith Cells None /hpf (0-5) 07/23/22 12:31 Calcium Oxalate Crystal 0-4 /hpf H 07/23/22 12:31 Amorphous Sediment Not Reportable 07/23/22 12:31 Urine Bacteria Trace /hpf (NONE) 07/23/22 12:31 Hyaline Casts 0-4 /lpf H 07/23/22 12:31 Urine Mucus 4+ /hpf 07/23/22 12:31 Urine Yeast 1+ /hpf H 07/23/22 12:31 Ethyl Alcohol 23 mg/dL (0-10) H 07/23/22 11:52 SARS-CoV-2 Ag (Rapid) negative (Negative) 07/23/22 12:28 EKG Data EKG 3: I personally reviewed and interpreted this EKG as follows: EKG interpretation date: 07/23/22 EKG interpretation time: 17:45 Prior EKG tracings: available for review Interpretation: Normal sinus rhythm with occasional PVCs. Normal axis. Normal [place] interval, normal QT interval. Low voltage. Normal ST segment. Discharge Plan Discharge Patient Disposition: Home Clinical Impression: Ascites Qualifiers: Ascites type: due to alcoholic cirrhosis Qualified Code(s): K70.31 - Alcoholic cirrhosis of liver with ascites Chest pain Qualifiers: Chest pain type: unspecified Qualified Code(s): R07.9 - Chest pain, unspecified Condition: Stable Prescriptions: No Action levetiracetam 750 mg tablet 750 mg PO BID 30 Days Qty: 60 1RF spironolactone 100 mg tablet 100 mg PO DAILY midodrine 5 mg tablet 5 mg PO BID PRN (Reason: Hypotension) citalopram 20 mg tablet 10 mg PO QAM lactulose 10 gram/15 mL solution 30 ml PO TID PRN (Reason: Constipation) Invega Sustenna 234 mg/1.5 mL syringe 234 mg IM Q30D Qty: 1.5 1RF Rx Instructions: Next dose 06/22/2022 Discharge Orders: Discharge ED (Routine); Ordered 07/23/22 Ordered By: Charli White Referrals: Jewell Hugo FNP-C [Primary Care Provider] - Discharge Diet: Advance as tolerated Discharge Activity: Increase activity as tolerated Patient Instructions: Ascites (ED) Activity Restrictions/Additional Instructions: Follow-up with your doctor that does management of your ascites next week as scheduled. Coding Level of Care Code ED Granulator Operator for Carlos Armstrong
[2022-07-23 18:53] LABS: Troponin 5 6HR 17.96 ng/L (0-15)
[2022-07-23 18:55] LABS: Troponin 5 6HR Delta 7.96 ng/L (0-12)
== END 2022-07-23 18:38 | disposition home or self-care (01) ==
PROVIDERS: Emergency Provider Family Medicine; PCP Nurse Practitioner Family
DX: R07.9 Chest pain, unspecified (principal); K70.31 Alcoholic cirrhosis of liver with ascites; Z20.822 Contact with and (suspected) exposure to COVID-19; F17.210 Nicotine dependence, cigarettes, uncomplicated; Z86.73 Personal history of transient ischemic attack (TIA), and cerebral infarction without residual deficits; E11.9 Type 2 diabetes mellitus without complications; I10 Essential (primary) hypertension; I25.10 Atherosclerotic heart disease of native coronary artery without angina pectoris; E78.2 Mixed hyperlipidemia
CPT/HCPCS: 36415; 49083; 71045; 80053; 80307; 81001; 82140; 83690; 83880; 84484; 85025; 85610; 85730; 87040; 87426; 93005; 99285

== ENCOUNTER 2022-08-04 13:18 | Emergency (ER) | payer MEDICARE, MEDICAID, SELFPAY ==
[2022-08-04] VITALS (15 sets, daily range): BP systolic 98–137; BP diastolic 63–97; PULSE 96–114; RESP 18–20; O2SAT 90–93
--- NOTE | 2022-08-04 13:23 | XRR_ITS ---
PROCEDURE INFORMATION: Exam: XR Chest Exam date and time: 08/04/2022 1:56 PM Age: 46 years old Clinical indication: Dyspnea TECHNIQUE: Imaging protocol: Radiologic exam of the chest. Views: 1 view. COMPARISON: CR XR chest 1V portable [id number] 07/23/2022 12:15 PM FINDINGS: Lungs: No acute pneumonia or edema. Pleural spaces: Unremarkable. No pleural effusion. No pneumothorax. Heart/Mediastinum: Unremarkable. No cardiomegaly. Diaphragm: There is elevation of the right hemidiaphragm. Bones/joints: Unremarkable. XR/XR chest 1V portable [id number] IMPRESSION: There are no acute concerning abnormalities.
--- NOTE | 2022-08-04 13:23 | CTR_ITS ---
PROCEDURE INFORMATION: Exam: CT Head Without Contrast Exam date and time: 08/04/2022 1:53 PM Age: 46 years old Clinical indication: Injury or trauma; Fall; Blunt trauma (contusions or hematomas); With loss of consciousness; Additional info: Head injury TECHNIQUE: Imaging protocol: Computed tomography of the head without contrast. Radiation optimization: All CT scans at this facility use at least one of these dose optimization techniques: automated exposure control; mA and/or kV adjustment per patient size (includes targeted exams where dose is matched to clinical indication); or iterative reconstruction. REPORTING DATA: Count of CT and Cardiac NM exams in prior 12 months: This patient has received 7 known CTs and 0 known cardiac nuclear medicine studies in the 12 months prior to the current study. COMPARISON: CT head wo con* [id number] 06/12/2022 12:11 PM RADIATION DOSE METRICS: Total DLP (mGy-cm): 1086.58 FINDINGS: Brain: Moderate white matter disease and volume loss are identified. There is no acute infarct or edema. No hemorrhage. Cerebral ventricles: No ventriculomegaly. Paranasal sinuses: Visualized sinuses are unremarkable. No fluid levels. Mastoid air cells: Visualized mastoid air cells are well aerated. Bones/joints: Unremarkable. No acute fracture. Soft tissues: Unremarkable. CT/CT head wo con* [id number] IMPRESSION: There are no acute concerning abnormalities.
--- NOTE | 2022-08-04 13:25 | ECG_ITS ---
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 Measurements Intervals [place] Rate: 105 P: 36 [place]: 112 QRS: -6 QRSD: 98 T: -8 QT: 338 QTc: 448 Interpretive Statements SINUS TACHYCARDIA WITH SHORT [place] INTERVAL LOW QRS VOLTAGE IN PRECORDIAL LEADS [QRS DEFLECTION < 1.0 mV IN CHEST LEADS] ANTEROSEPTAL MYOCARDIAL INFARCTION , OF INDETERMINATE AGE [40+ ms Q WAVE IN V1-V4] Compared to ECG 07/23/2022 17:45:02 Short [place] interval now present Low QRS voltage now present Myocardial infarct finding now present Sinus rhythm no longer present Ventricular premature complex(es) no longer present Electronically Signed On 08-04-2022 20:50:58 GRINDER SET UP OPERATOR by Skip Abdul M.D. [email or web address] [id number]
--- NOTE | 2022-08-04 13:35 | W.ED.SOB ---
HPI - SOB/Dyspnea General: Chief Complaint: Shortness of Breath/Dyspnea Stated Complaint: ABD PAIN Time Seen by Provider: 08/04/22 13:19 Source: patient Mode of arrival: EMS Limitations: no limitations History of Present Illness: HPI Narrative: 46-year-old male well-known to this emergency department presents by EMS reporting shortness of breath and stating that he has ascites that needs to be drained. His abdomen is again full and tender. Patient has a history of difficulty obtaining transportation to get to [place] for routine scheduled paracentesis. He also has a history of noncompliance and chronic alcoholism. Patient reports today he got lightheaded in his kitchen and fell down. He says he did hit the front of his head. No loss of consciousness is reported. EMS said he had a possible absence type seizure. On arrival the patient is shaking both of his legs but his hands are still. He is fluttering his eyelids but when I ask him a question he opens his eyes, stops doing all of this and answers me. Associated symptoms: Reports abdominal pain, lightheadedness and orthopnea; Deny chest pain, extremity pain, fever(s), nausea, palpitations, syncope or vomiting Review of Systems General: Reports: 10 or more systems reviewed and unremarkable except in HPI and below Const: Reports: change in weight and fatigue; Denies: fever(s) or chills Eyes: Denies: change in vision ENMT: Denies: throat pain Card: Reports: lightheadedness, dyspnea on exertion and orthopnea; Denies: chest pain, palpitations, edema, swelling of feet/ankles or syncope Resp: Denies: dyspnea or productive cough GI: Reports: abdominal pain; Denies: nausea, vomiting, diarrhea, hematochezia or melena : Denies: flank pain, dysuria or urinary frequency Musc: Denies: neck pain, back pain, extremity pain or extremity swelling Skin/Breast: Denies: rash or erythema Neuro: Reports: seizure-like activity and restless legs; Denies: headache(s), numbness in extremities, weakness in extremities, lack of coordination or difficulty walking [facility] PFSH: Medical History Acne rosacea ALC (alcoholic liver cirrhosis) Alcohol dependence, uncomplicated Bipolar disorder Cerebrovascular accident (CVA) Controlled diabetes mellitus with hyperglycemia Current smoker DM neuropathy, painful Essential (primary) hypertension History of alcohol abuse daily use of hard liquor History of coronary artery disease History of CVA (cerebrovascular accident) 2009 Right side weakness due to a bleed History of memory loss History of schizophrenia Homicidal ideation Mixed hyperlipidemia Nicotine dependence, cigarettes, uncomplicated Psoriasis Psychiatric care Seizure disorder Surgical History History of colonoscopy with polypectomy 2016 History of esophagogastroduodenoscopy (EGD) History of eye surgery History of heart artery stent Family History Other Dementia Diabetes Hypertension Lung disease Psychiatric illness Stroke Denies family history of Chronic kidney disease (CKD) Anesthesia complication Bleeding disorder Cancer Social History Smoking and tobacco status: current every day smoker cigarettes Packs smoked per day: 2.5 Years cigarettes smoked: 38 Second hand smoke exposure: Yes Smoking risk assessment/counseling performed?: Yes Alcohol intake: current Alcohol intake frequency: 0-2 Drinks per Day Alcohol type: hard liquor Desire information about alcohol rehabilitation?: No Counseling given: No Desire information about substance/drug rehabilitation?: No Counseling given: No Adopted: No Caregiver/support person: Yes Lives independently: No Household members: friend(s) and caregiver Housing: Manufactured/Mobile home Marital status: Number of children: 8 service: No Current occupational status: disabled Pets and animals: Yes Current gender identity: Male Physical Exam Const: COMMON NORMALS: no limitations, alert and well nourished EXAM LIMITATIONS: no altered mental status OTHER: Patient appears older than stated age. As noted above patient is fluttering his eyelids and has restless legs. When asked, question he stops doing this to answer and then starts again. He keeps his eyelids closed except for when being asked a direct question. HENMT: COMMON NORMALS: normocephalic, atraumatic (He reportedly hit his head but there are no signs of any hematoma) and external ears normal HEAD & SCALP: normocephalic and atraumatic (He reportedly hit his head but there are no signs of any hematoma) EXTERNAL EAR: Yes external ears normal MOUTH: no muffled voice Eye: COMMON NORMALS: EOMs intact bilaterally, conjunctivae normal and no scleral icterus CONJUNCTIVA: Yes conjunctivae normal Neck/C-Spine: COMMON NORMALS: no JVD GENERAL: Yes normal visual inspection and Yes trachea midline Resp: OTHER: Tachypnea, rales, normal oxygenation Cardio: COMMON NORMALS: no JVD RATE: tachycardic GI: COMMON NORMALS: Soft to palpation and non-tender PALPATION: Yes Soft to palpation, Yes Guarding due to palpation present (GI) and Yes Other GI palpation findings present (Distended, caput medusa) Extremity: COMMON NORMALS: normal to inspection Neuro: COMMON NORMALS: moves all extremities, no focal motor deficits and no sensory deficits noted SENSORIUM/ORIENTATION: Yes alert SPEECH: speech normal Psych: COMMON NORMALS: mental status grossly normal, Normal thought process present, cooperative, normal affect and speech normal SPEECH: Yes normal speech THOUGHT PROCESS: Normal thought process present Skin: COMMON NORMALS: no rashes or lesions noted, turgor normal and no jaundice GENERAL SKIN EXAM: no rashes or lesions noted and turgor normal Procedures Paracentesis Indication: possible spontaneous bacterial peritonitis Procedure: diagnostic paracentesis Location: RLQ Local Anesthetic: lidocaine 1% Amount of anesthesia used (mL): 4 Bedside Ultrasound Used: yes, Ascites confirmed and location marked Preparation: sterile prep and drape Amount of fluid obtained (mL): 6,000 Fluid: clear Post Procedure Exam: awake, alert and normal HR Patient Tolerated Procedure: well Complications: none Additional Comments: Given 50g of Albumin Course Vital Signs: Vital signs: Vital Signs Pulse Rate 114 H 08/04/22 13:22 Respiratory Rate 20 H 08/04/22 13:22 Blood Pressure 98/69 08/04/22 13:22 Pulse Oximetry 93 08/04/22 13:22 Oxygen Delivery Me thod 08/04/22 13:22 MDM - SOB/Dyspnea Medical Decision Making 46-year-old male with long history of portal venous hypertension and related cirrhosis. He has difficulties with transportation as well as compliance and frequently waits until he is significantly symptomatic before coming to the emergency department requesting paracentesis. Today he also had a reported head injury. There is no objective sign of trauma on his head. He would be high risk if he hit his head so would like to obtain a CT scan. I will also check his INR, liver function test, electrolytes, hemoglobin, platelets, renal function since he has been feeling lightheaded. Hs pressure was soft on arrival. He has low albumin--since paracentesis will need to be performed for dyspnea/rales and to rule out SBP, I'd like to give 50g of albumin. Patient's head CT and CXR w/o acute findings. Labs pretty reassuring/chronic. Paracentesis performed--removed 6L Peritoneal fluid had <300 WBC/unit which is reassuring and unlikely SBP Patint given 50g of albumin. He can be discharged and needs to get this done on a scheduled basis rather than wait until he decompensates. Lab Data 08/04/22 13:50 08/04/22 13:50 Labs/Radiology: Radiology Impressions Chest X-Ray 08/04/22 13:23 IMPRESSION: There are no acute concerning abnormalities. Head CT 08/04/22 13:23 IMPRESSION: There are no acute concerning abnormalities. Laboratory Results WBC 7.8 10^3/uL (4.0-10.0) 08/04/22 13:50 RBC 4.29 10^6/uL (4.1-5.3) 08/04/22 13:50 Hgb 14.2 g/dL (11.7-16.6) 08/04/22 13:50 Hct 42.3 % (42.0-52.0) 08/04/22 13:50 MCV 98.6 fl (80-94) H 08/04/22 13:50 MCH 33.1 pg (28.0-34.0) 08/04/22 13:50 MCHC 33.6 g/dL (30.0-36.0) 08/04/22 13:50 RDW 13.8 % (12.1-15.1) 08/04/22 13:50 Plt Count 152 10^3/cmm (130-400) 08/04/22 13:50 MPV 10.0 fL (7.4-10.4) 08/04/22 13:50 Neut % (Auto) 71.3 % 08/04/22 13:50 Lymph % (Auto) 12.4 % 08/04/22 13:50 [place] % (Auto) 9.4 % 08/04/22 13:50 Eos % (Auto) 5.5 % 08/04/22 13:50 Baso % (Auto) 1.0 % 08/04/22 13:50 Neut # (Auto) 5.52 10^3/uL (1.8-7.7) 08/04/22 13:50 Lymph # (Auto) 1.0 10^3/uL (0.8-4.8) 08/04/22 13:50 [place] # (Auto) 0.7 10^3/uL (0.2-0.9) 08/04/22 13:50 Eos # (Auto) 0.4 10^3/uL (0.0-0.8) 08/04/22 13:50 Baso # (Auto) 0.1 10^3/uL (0.0-0.1) 08/04/22 13:50 Nucleated RBC % (auto) 0 % 08/04/22 13:50 Nucleated RBCs # 0.0 /100WBC 08/04/22 13:50 Differential Comment Yes 08/04/22 14:47 PT 15.60 SECONDS (12.1-14.9) H 08/04/22 13:50 INR 1.20 (0.8-1.2) 08/04/22 13:50 Sodium 133 mmol/L (136-145) L 08/04/22 13:50 Potassium 3.9 mmol/L (3.5-5.1) 08/04/22 13:50 Chloride 101 mmol/L (98-107) 08/04/22 13:50 Carbon Dioxide 23 mmol/L (22-29) 08/04/22 13:50 Anion Gap 12.9 (5-19) 08/04/22 13:50 BUN 5 mg/dL (6-20) L 08/04/22 13:50 Creatinine 0.5 mg/dL (0.7-1.2) L 08/04/22 13:50 GFR Calculation 177.5 mL/min (90-130) H 08/04/22 13:50 Glucose 112 mg/dL (65-115) 08/04/22 13:50 Calculated Osmolality 274 mOsm/kg (285-295) L 08/04/22 13:50 Calcium 8.4 mg/dL (8.5-10.5) L 08/04/22 13:50 Magnesium 1.7 mg/dL (1.7-2.3) 08/04/22 13:50 Total Bilirubin 1.4 mg/dL (0.15-1.2) H 08/04/22 13:50 Direct Bilirubin 0.60 mg/dL (0.00-0.30) H 08/04/22 13:50 AST 36 U/L (0-40) 08/04/22 13:50 ALT 11 U/L (0-41) 08/04/22 13:50 Alkaline Phosphatase 108 U/L (40-130) 08/04/22 13:50 Ammonia 42 umol/L (16-60) 08/04/22 13:50 Total Protein 6.1 g/dL (6.6-8.7) L 08/04/22 13:50 Albumin 2.4 g/dL (3.5-5.2) L 08/04/22 13:50 Globulin 3.7 g/dL (1.3-4.6) 08/04/22 13:50 Fluid Color Pale yellow 08/04/22 14:47 Fluid Appearance Clear 08/04/22 14:47 Fluid WBC 271 /uL 08/04/22 14:47 Fluid RBC 1.000 10^3/uL 08/04/22 14:47 Fld Polynuclear WBCs # 0.029 08/04/22 14:47 Fld Polynuclear WBCs % 10.700 % 08/04/22 14:47 Fl Mononucl WBCs #(Auto) 0.242 08/04/22 14:47 Fl Mononuclear % Auto 89.300 % 08/04/22 14:47 Fluid Glucose 118.0 mg/dL 08/04/22 14:47 Ethyl Alcohol < 10 mg/dL (0-10) 08/04/22 13:50 Discharge Plan Discharge Patient Disposition: Home Clinical Impression: Ascites, Portal venous hypertension Condition: Stable Prescriptions: No Action levetiracetam 750 mg tablet 750 mg PO BID 30 Days Qty: 60 1RF spironolactone 100 mg tablet 100 mg PO DAILY midodrine 5 mg tablet 5 mg PO BID PRN (Reason: Hypotension) citalopram 20 mg tablet 10 mg PO QAM lactulose 10 gram/15 mL solution 30 ml PO TID PRN (Reason: Constipation) Invega Sustenna 234 mg/1.5 mL syringe 234 mg IM Q30D Qty: 1.5 1RF Rx Instructions: Next dose 06/22/2022 Discharge Orders: Discharge ED (Routine); Ordered 08/04/22 Ordered By: Jose Vilchis Referrals: Jewell Hugo FNP-C [Primary Care Provider] - Patient Instructions: Opioid Safety, Pain Management Coding Level of Care Code ED [employer]cre[employer] for Carlos Armstrong
--- NOTE | 2022-08-04 13:43 | PC.NURSE ---
pt reports he normally gets drained every 3 or 4 days. pt reports he hasnt left the house because they are trying to off him. states the voices are telling him that. 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 Pt reports the voices have been present for a month. Pt denies any thoughts HI but states he had thoughts of SI yesterday. States he didnt want to give them the satisfaction of shooting him, that is why he keeps his blinds closed. pt denies any suicidal thoughts today. Dr. Vilchis notified. Per physician, no sitter needed.
[2022-08-04 13:56] LABS: Basophils # 0.1 10^3/uL (0.0-0.1); Eosinophils # 0.4 10^3/uL (0.0-0.8); Eosinophils % 5.5 %; Hematocrit 42.3 % (42.0-52.0); Hemoglobin 14.2 g/dL (11.7-16.6); Lymphocytes % 12.4 %; Mean Corpuscular HGB Conc 33.6 g/dL (30.0-36.0); Mean Corpuscular Hemoglobin 33.1 pg (28.0-34.0); Mean Corpuscular Volume 98.6 fl (80-94); Monocytes # 0.7 10^3/uL (0.2-0.9); Monocytes % 9.4 %; Neutrophils # 5.52 10^3/uL (1.8-7.7); Neutrophils % 71.3 %; Nucleated Red Blood Cells % 0 %; Platelet Count 152 10^3/cmm (130-400); Red Blood Count 4.29 10^6/uL (4.1-5.3); Red Cell Distribution Width 13.8 % (12.1-15.1); White Blood Count 7.8 10^3/uL (4.0-10.0)
[2022-08-04 14:17] LABS: Alanine Aminotransferase 11 U/L (0-41); Albumin Level 2.4 g/dL (3.5-5.2); Alcohol Level < 10 mg/dL (0-10); Alkaline Phosphatase 108 U/L (40-130); Ammonia 42 umol/L (16-60); Anion Gap 12.9 (5-19); Aspartate Amino Transferase 36 U/L (0-40); Blood Urea Nitrogen 5 mg/dL (6-20); Calcium 8.4 mg/dL (8.5-10.5); Carbon Dioxide 23 mmol/L (22-29); Chloride 101 mmol/L (98-107); Globulin 3.7 g/dL (1.3-4.6); Glomerular Filtration Rate 177.5 mL/min (90-130); Glucose 112 mg/dL (65-115); Magnesium 1.7 mg/dL (1.7-2.3); Osmolality Calculated 274 mOsm/kg (285-295); Potassium 3.9 mmol/L (3.5-5.1); Sodium 133 mmol/L (136-145); Total Bilirubin 1.4 mg/dL (0.15-1.2); Total Protein 6.1 g/dL (6.6-8.7)
[2022-08-04] MEDS: albumin 50 G/200 ML BAG 60 G IV (14:50)
[2022-08-04 15:19] LABS: Apprearance, Body Fluid CLEAR; Body Fluid Polynuclear #Cells 0.029; Body Fluid WBC 271 /uL; Color, Body Fluid PALE YELLOW; Monocytes # Body Fluid 0.242
[2022-08-04 15:20] LABS: PATH Referral YES
--- NOTE | 2022-08-04 16:42 | PC.NURSE ---
parenthesis completed, ER staff remained with pt throughout procedure. total of 6L drained from pt, stopped due to pt reports normally gets dizzy and has increased pain after 6.5L has been drained. VS montiored and BP cycled every 15 minutes. Drain removed by Dr. Vilchis
--- NOTE | 2022-08-04 17:15 | PC.NURSE ---
per Dr. Vilchis, titrate albumen to 120mL/hr.
== END 2022-08-04 18:27 | disposition home or self-care (01) ==
PROVIDERS: Emergency Provider Emergency Medicine; PCP Nurse Practitioner Family
DX: R18.8 Other ascites (principal); K76.6 Portal hypertension; F17.210 Nicotine dependence, cigarettes, uncomplicated; Z86.73 Personal history of transient ischemic attack (TIA), and cerebral infarction without residual deficits; E11.9 Type 2 diabetes mellitus without complications; I10 Essential (primary) hypertension; I25.10 Atherosclerotic heart disease of native coronary artery without angina pectoris; E78.2 Mixed hyperlipidemia
CPT/HCPCS: 36415; 49082; 70450; 71045; 80048; 80076; 80307; 80503; 82140; 82945; 83735; 85025; 85610; 87070; 87075; 87205; 89050; 93005; 96365; 96366; 99285; P9046

== ENCOUNTER 2022-08-20 15:03 | Emergency (ER) | payer MEDICARE, MEDICAID, SELFPAY ==
[2022-08-20] VITALS (7 sets, daily range): BP systolic 121–166; BP diastolic 78–124; PULSE 116–140; RESP 16–28; TEMP 36.8; O2SAT 91–94
--- NOTE | 2022-08-20 15:17 | XRR_ITS ---
PROCEDURE INFORMATION: Exam: XR Chest Exam date and time: 08/20/2022 3:26 PM Age: 47 years old Clinical indication: Pain; Angina pectoris; Additional info: Cp TECHNIQUE: Imaging protocol: Radiologic exam of the chest. Views: 1 view. COMPARISON: CR (CHEST, ) 08/04/2022 1:56 PM FINDINGS: Lungs: Hypoinflated lungs. No consolidation. Pleural spaces: Unremarkable. No pleural effusion. No pneumothorax. Heart/Mediastinum: Unremarkable. No cardiomegaly. Bones/joints: Visualized osseous structures are intact. XR/XR chest 1V portable [id number] IMPRESSION: No acute findings.
--- NOTE | 2022-08-20 15:17 | ECG_ITS ---
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 Measurements Intervals [place] Rate: 121 P: 6 [place]: 144 QRS: -34 QRSD: 86 T: 12 QT: 327 QTc: 465 Interpretive Statements SINUS TACHYCARDIA INFERIOR MYOCARDIAL INFARCTION , PROBABLY OLD [40+ ms Q WAVE AND/OR ST/T ABNORMALITY IN II/aVF] ANTEROSEPTAL MYOCARDIAL INFARCTION , OF INDETERMINATE AGE [40+ ms Q WAVE IN V1-V4] Compared to ECG 08/04/2022 13:31:59 Short [place] interval no longer present Myocardial infarct finding still present Electronically Signed On 08-21-2022 0:18:25 CDT by Rex Gilbert M.D. [id number] f
--- NOTE | 2022-08-20 15:30 | PC.NURSE ---
SEIZURE PADS APPLIED TO BED RAILS
[2022-08-20 15:52] LABS: Basophils # 0.1 10^3/uL (0.0-0.1); Basophils % 1.1 %; Eosinophils # 0.4 10^3/uL (0.0-0.8); Eosinophils % 5.6 %; Hematocrit 46.1 % (42.0-52.0); Hemoglobin 15.4 g/dL (11.7-16.6); Lymphocytes # 1.4 10^3/uL (0.8-4.8); Lymphocytes % 19.4 %; Mean Corpuscular HGB Conc 33.4 g/dL (30.0-36.0); Mean Corpuscular Hemoglobin 33.1 pg (28.0-34.0); Mean Corpuscular Volume 99.1 fl (80-94); Mean Platelet Volume 10.3 fL (7.4-10.4); Monocytes # 0.5 10^3/uL (0.2-0.9); Monocytes % 7.6 %; Nucleated Red Blood Cells % 0 %; Platelet Count 226 10^3/cmm (130-400); Red Blood Count 4.65 10^6/uL (4.1-5.3); Red Cell Distribution Width 13.4 % (12.1-15.1)
[2022-08-20 16:07] LABS: Alanine Aminotransferase 13 U/L (0-41); Alkaline Phosphatase 89 U/L (40-130); Anion Gap 15.7 (5-19); Aspartate Amino Transferase 53 U/L (0-40); Blood Urea Nitrogen 3 mg/dL (6-20); Calcium 8.6 mg/dL (8.5-10.5); Carbon Dioxide 25 mmol/L (22-29); Chloride 103 mmol/L (98-107); Globulin 3.8 g/dL (1.3-4.6); Glomerular Filtration Rate 176.7 mL/min (90-130); Glucose 115 mg/dL (65-115); Lipase 71 U/L (13-60); Osmolality Calculated 287 mOsm/kg (285-295); Potassium 3.7 mmol/L (3.5-5.1); Sodium 140 mmol/L (136-145); Total Bilirubin 0.8 mg/dL (0.15-1.2); Total Protein 6.8 g/dL (6.6-8.7)
[2022-08-20 16:10] LABS: Troponin(5th) Baseline 11 ng/L (0-15)
--- NOTE | 2022-08-20 16:13 | PC.NURSE ---
PT HAD A POSSIBLE SEIZURE IN MEN'S RESTROOM. ONCE ARRIVING TO SCENE SEIZING MOVEMENT CEASED. PT MOVED TO ER ROOM. PT BREATH SMELLED OF ALCOHOL. STATES PT CONSUMED APPROX 6OZ OF [place].
--- NOTE | 2022-08-20 16:44 | W.ED.CHESTPA ---
HPI - Chest Pain General: Chief Complaint: Chest Pain Stated Complaint: Chest Pain, SOB Time Seen by Provider: 08/20/22 16:38 History of Present Illness: About aPatient presents to the ER with complaints of shortness of breath and chest pain. He states he needs another paracentesis. Patient says he usually gets 4 days to 1 week, however he has been approximately 2 weeks since his last paracentesis this time. Patient says his abdomen is swollen tender and he is having a hard time breathing which is causing chest pain. Patient is well-known to the ER. During his stay in the ER patient has had multiple seizure-like activity where he flails around ask what he is trying to swallow his tongue and stop breathing. During these episodes he will stop immediately when painful stimuli are introduced and will talk to you immediately in complete sentences and be coherent. Patient is never postictal nor does he lose bowel or bladder. Patient was giving 1 dose of Keppra 1 g IV and continued to have these episodes after this medicine was administered. Upon talking to the patient and his they both were getting agitated that nothing was being done for these seizure-like episodes and he decided all he wants to do is go home and play with his kitties. Patient refused any additional treatment. It was displaying in great detail about seizures versus pseudoseizures, his ascites due to his liver failure, and a potential for worsening progression of all of these. Patient understands the risks of leaving AGAINST MEDICAL ADVICE and still wishes to proceed. MD complaint: chest pain and other (Abdominal swelling shortness of breath) Pertinent past history: other (Alcoholic cirrhosis, ascites, noncompliance) Prior episodes: Yes Pain location: other (Diffuse) Pain radiation: none Severity: mild Quality: tightness Relieving factors: nothing Exacerbating factors: inspiration Context: non compliance with medication and other (Worsening ascites) Associated symptoms: Reports abdominal pain and dyspnea; Deny fever(s), nausea, palpitations or vomiting Treatment prior to arrival: none Review of Systems General: Reports: 10 or more systems reviewed and unremarkable except in HPI and below Const: Denies: fever(s), chills or body aches Eyes: Denies: change in vision ENMT: Denies: throat pain or odynophagia Card: Reports: chest pain; Denies: palpitations or irregular heart rhythm Resp: Reports: dyspnea; Denies: productive cough, non-productive cough or wheezing GI: Reports: abdominal pain; Denies: nausea or vomiting : Denies: flank pain, difficulty urinating or dysuria Musc: Denies: neck pain, back pain or extremity pain Skin/Breast: Denies: rash, pruritus or erythema Neuro: Denies: headache(s), numbness in extremities or weakness in extremities Psych: Denies: anxiety or depression Endo: Denies: polyuria or polydipsia Len/Lymph: Denies: easy bruising or easy bleeding All/Imm: Denies: urticaria or throat swelling PFSH ED PFSH: Medical History Acne rosacea ALC (alcoholic liver cirrhosis) Alcohol dependence, uncomplicated Bipolar disorder Cerebrovascular accident (CVA) Controlled diabetes mellitus with hyperglycemia Current smoker DM neuropathy, painful Essential (primary) hypertension History of alcohol abuse daily use of hard liquor History of coronary artery disease History of CVA (cerebrovascular accident) 2009 Right side weakness due to a bleed History of memory loss History of schizophrenia Homicidal ideation Mixed hyperlipidemia Nicotine dependence, cigarettes, uncomplicated Psoriasis Psychiatric care Seizure disorder Surgical History History of colonoscopy with polypectomy 2015 History of esophagogastroduodenoscopy (EGD) History of eye surgery History of heart artery stent Family History Other Dementia Diabetes Hypertension Lung disease Psychiatric illness Stroke Denies family history of Chronic kidney disease (CKD) Anesthesia complication Bleeding disorder Cancer Social History Smoking and tobacco status: current every day smoker cigarettes Packs smoked per day: 2.5 Years cigarettes smoked: 38 Second hand smoke exposure: Yes Smoking risk assessment/counseling performed?: Yes Alcohol intake: current Alcohol intake frequency: 0-2 Drinks per Day Alcohol type: hard liquor Desire information about alcohol rehabilitation?: No Counseling given: No Desire information about substance/drug rehabilitation?: No Counseling given: No Adopted: No Caregiver/support person: Yes Lives independently: No Household members: friend(s) and caregiver Housing: Manufactured/Mobile home Marital status: Number of children: 8 service: No Current occupational status: disabled Pets and animals: Yes Current gender identity: Male Physical Exam Const: COMMON NORMALS: average body habitus, patient oriented x3, alert and well nourished HENMT: COMMON NORMALS: normocephalic, atraumatic and hearing grossly normal bilaterally HEAD & SCALP: normocephalic and atraumatic Eye: COMMON NORMALS: Equal, round and reactive pupils present, EOMs intact bilaterally and conjunctivae normal CONJUNCTIVA: Yes conjunctivae normal PUPIL: Yes Equal, round and reactive pupils present Neck/C-Spine: COMMON NORMALS: full ROM Lymph: LYMPHATIC: no lymphadenopathy noted Chest: COMMONS NORMALS: normal inspection of the chest and normal palpation of entire chest wall Resp: COMMON NORMALS: normal respiratory effort, No retractions, No use of accessory muscles and clear to auscultation bilaterally AUSCULTATION: clear to auscultation bilaterally Cardio: COMMON NORMALS: regular rhythm, S1 normal heart sound present and S2 normal heart sound present RATE: tachycardic RHYTHM: regular rhythm HEART SOUNDS: S1 normal heart sound present and S2 normal heart sound present GI: INSPECTION: Yes abdominal distension AUSCULTATION: Yes normoactive bowel sounds PALPATION: Yes Firmness to palpation present (GI) and Yes Tenderness to palpation present (GI) Neuro: COMMON NORMALS: patient oriented x3, CN's II-XII intact bilaterally, moves all extremities, no focal motor deficits and no sensory deficits noted SENSORIUM/ORIENTATION: Yes alert Psych: COMMON NORMALS: mental status grossly normal, Normal thought process present, cooperative, normal affect and speech normal SPEECH: Yes normal speech THOUGHT PROCESS: Normal thought process present Course Vital Signs: Vital signs: Vital Signs Temperature 98.3 F 08/20/22 15:11 Pulse Rate 119 H 08/20/22 18:00 Respiratory Rate 22 H 08/20/22 18:00 Blood Pressure 132/87 08/20/22 18:00 Pulse Oximetry 91 08/20/22 18:00 Oxygen Delivery Me thod 08/20/22 15:11 MDM - Chest Pain Medical Decision Making Patient presents to the ER with complaints of chest pressure due to his abdominal swelling and ascites. Patient normally gets thoracentesis about once a week however it has been 2 weeks since his last procedure. He has recurrent ascites due to alcoholic cirrhosis. This is no different than any other time except may be a little more severe since he waited so long. Differential Diagnosis Unlikely acute massive pulmonary embolism, acute respiratory failure, acute myocardial infarction, cardiac arrest or sudden cardiac Medical Records I reviewed the patient's medical records. Lab Data I reviewed the patient's lab results. 08/20/22 15:08/20/22: Radiology Impressions Chest X-Ray 08/20/22: IMPRESSION: No acute findings. Laboratory Results WBC 7.0 10^3/uL (4.0-10.0) 08/20/22: RBC 4.65 10^6/uL (4.1-5.3) 08/20/22: Hgb 15.4 g/dL (11.7-16.6) 08/20/22 Hct 46.1 % (42.0-52.0) 08/20/22 MCV 99.1 fl (80-94) H 08/20/22: MCH 33.1 pg (28.0-34.0) 08/20/22 MCHC 33.4 g/dL (30.0-36.0) 08/20/22: RDW 13.4 % (12.1-15.1) 08/20/22 Plt Count 226 10^3/cmm (130-400) 08/20/22 MPV 10.3 fL (7.4-10.4) 08/20/22: Neut % (Auto) 66.0 % 08/20/22: Lymph % (Auto) 19.4 % 08/20/22: [place] % (Auto) 7.6 % 08/20/22: Eos % (Auto) 5.6 % 08/20/22: Baso % (Auto) 1.1 % 08/20/22: Neut # (Auto) 4.60 10^3/uL (1.8-7.7) 08/20/22: Lymph # (Auto) 1.4 10^3/uL (0.8-4.8) 08/20/22: [place] # (Auto) 0.5 10^3/uL (0.2-0.9) 08/20/22: Eos # (Auto) 0.4 10^3/uL (0.0-0.8) 08/20/22 15:23 Baso # (Auto) 0.1 10^3/uL (0.0-0.1) 08/20/22 15: Nucleated RBC % (auto) 0 % 08/20/22 15: Nucleated RBCs # 0.0 /100WBC 08/20/22 15: Sodium 140 mmol/L (136-145) 08/20/22 15: Potassium 3.7 mmol/L (3.5-5.1) 08/20/22 15: Chloride 103 mmol/L (98-107) 08/20/22 15: Carbon Dioxide 25 mmol/L (22-29) 08/20/22: Anion Gap 15.7 (5-19) 08/20/22 15: BUN 3 mg/dL (6-20) L 08/20/22 15: Creatinine 0.5 mg/dL (0.7-1.2) L 08/20/22 15: GFR Calculation 176.7 mL/min (90-130) H 08/20/22 15: Glucose 115 mg/dL (65-115) 08/20/22 15: Calculated Osmolality 287 mOsm/kg (285-295) 08/20/22: Calcium 8.6 mg/dL (8.5-10.5) 08/20/22 15: Total Bilirubin 0.8 mg/dL (0.15-1.2) 08/20/22 15: AST 53 U/L (0-40) H 08/20/22 15: ALT 13 U/L (0-41) 08/20/22 15:23 Alkaline Phosphatase 89 U/L (40-130) 08/20/22 15:23 Troponin T Baseline 11 ng/L (0-15) 08/20/22 15: Troponin T 120 Minute 9.48 ng/L (0-15) 08/20/22 17:15 Delta Troponin T -1.52 ABS# (0-10) L 08/20/22 17:15 Total Protein 6.8 g/dL (6.6-8.7) 08/20/22 15: Albumin 3.0 g/dL (3.5-5.2) L 08/20/22 15:23 Globulin 3.8 g/dL (1.3-4.6) 08/20/22 15:23 Lipase 71 U/L (13-60) H 08/20/22 15:23 EKG Data EKG 2: I personally reviewed and interpreted this EKG as follows: EKG interpretation date: 08/20/22 EKG interpretation time: 17:18 Interpretation: EKG showed sinus tachycardia with a rate of 120 bpm, VT interval of 164, QRS duration of 85, QTc of 397, possible anterior myocardial infarction of indeterminate age, Q waves in V3/V4 Discharge Plan Discharge Patient Disposition: Left Against Medical Advice Clinical Impression: H/O noncompliance with medical treatment, presenting hazards to health, Abdominal ascites, Cirrhosis of liver Condition: Stable Prescriptions: No Action metformin 500 mg tablet extended release 24 hr 500 mg PO BID 90 Days Qty: 180 0RF gabapentin 400 mg capsule 400 mg PO TID 30 Days Qty: 90 0RF lisinopril 20 mg tablet 20 mg PO DAILY 90 Days Qty: 90 0RF Invega Sustenna 234 mg/1.5 mL syringe 234 mg IM Q30D Qty: 1.5 0RF Rx Instructions: initial starting dose citalopram [Celexa] 20 mg tablet 20 mg PO DAILY Qty: 30 2RF trazodone 50 mg tablet 50 mg PO .HS Qty: 30 2RF paliperidone [Invega] 6 mg tablet extended release 24 hr 6 mg PO QAM Qty: 14 2RF Rx Instructions: daily as needed 2 weeks before injection is next due Invega Sustenna 156 mg/mL syringe 156 mg IM Q30D Qty: 1 0RF Rx Instructions: To be given 7 days after the initial 234mg dose given levetiracetam 750 mg tablet 750 mg PO BID 30 Days Qty: 60 1RF spironolactone 100 mg tablet 100 mg PO DAILY midodrine 5 mg tablet 5 mg PO BID PRN (Reason: Hypotension) lactulose 10 gram/15 mL solution 30 ml PO TID PRN (Reason: Constipation) Referrals: Jewell Hugo FNP-C [Primary Care Provider] - Patient Instructions: Ascites (ED), Against Medical Advice (ED) Coding Level of Care Code ED [employer]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
--- NOTE | 2022-08-20 17:13 | PC.NURSE ---
While at bedside, pt began to seize. Pt was unable to respond to verbal stimuli but was able to assist this nurse in turning him to his side. The seizure lasted approximately 1 minute. Following the seizure, pt was AAOx4.
--- NOTE | 2022-08-20 17:17 | ECG_ITS ---
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 Measurements Intervals [place] Rate: 120 P: 39 NH: 164 QRS: -29 QRSD: 85 T: 24 QT: 326 QTc: 461 Interpretive Statements SINUS TACHYCARDIA POSSIBLE ANTERIOR MYOCARDIAL INFARCTION , OF INDETERMINATE AGE [30 ms Q WAVE IN V3/V4, OR R < 0.2 mV IN V4] Compared to ECG 08/20/2022 15:18:45 No significant changes Electronically Signed On 08-21-2022 0:20:09 CDT by Rex Gilbert M.D. [id number]
[2022-08-20] MEDS: sodium chloride 0.9% 1,000 ML 999 ML IV (17:32)
--- NOTE | 2022-08-20 17:45 | PC.NURSE ---
Pt reports having 3 seizures while this nurse was out of room. Upon entering the room, pt had 4 seizure-like episodes while this nurse was in the room. These episodes lasted 30 seconds each and pt was verbally responsive following each episode.
[2022-08-20 18:15] LABS: Troponin 5 2HR 9.48 ng/L (0-15)
[2022-08-20 18:22] LABS: Troponin 5 2HR Delta -1.52 ABS# (0-10)
== END 2022-08-20 18:35 | disposition left against medical advice (07) ==
PROVIDERS: Physician Assistant; Emergency Provider Emergency Medicine; PCP Nurse Practitioner Family
DX: K70.31 Alcoholic cirrhosis of liver with ascites (principal); E11.40 Type 2 diabetes mellitus with diabetic neuropathy, unspecified; I10 Essential (primary) hypertension; E78.2 Mixed hyperlipidemia; R00.0 Tachycardia, unspecified; F17.210 Nicotine dependence, cigarettes, uncomplicated; Z79.84 Long term (current) use of oral hypoglycemic drugs; Z86.73 Personal history of transient ischemic attack (TIA), and cerebral infarction without residual deficits
CPT/HCPCS: 36415; 71045; 80053; 83690; 84484; 85025; 93005; 96365; 99285; J1953; J7030

== ENCOUNTER 2022-08-21 02:52 | Inpatient (IN) | payer MEDICARE, MEDICAID, SELFPAY ==
[2022-08-21] VITALS (8 sets, daily range): BP systolic 111–156; BP diastolic 69–101; PULSE 95–114; RESP 15–18; TEMP 36.6–37.5; O2SAT 90–98; BMI 31.9
--- NOTE | 2022-08-21 02:54 | W.ED.PSYCHS ---
Documented by User: Saulo Patterson MD 08/22/22 02:28 HPI - Psych General: Chief Complaint: Psychiatric Symptoms Stated Complaint: SI, ETOH Time Seen by Provider: 08/21/22 02:53 History of Present Illness: Mr. Flores is a 47-year-old gentleman with complex past medical history including hypertension, hyperlipidemia, diabetes, alcoholic liver disease, psychiatric disorder presenting to the emergency department for abdominal fullness and suicidal ideation. He was seen on 08/20 and apparently left AMA at that time. He reports 2-day history of thoughts of cutting his throat as a form of suicide. He also endorses taking a handful of Celexa yesterday though thinks that he threw most of them up. He has not had paracentesis since 08/04 and notes abdominal fullness which has become painful. No other specific changes in health, exacerbating, or alleviating factors identified. Onset (ago): day(s) Duration: getting worse History of same: Yes Associated psychiatric symptoms: depression and suicidal ideation Review of Systems General: Reports: 10 or more systems reviewed and unremarkable except in HPI and below PFSH ED PFSH: Medical History (Updated 08/21/22 @ 11:26 by Caryn Medina MD) Acne rosacea ALC (alcoholic liver cirrhosis) Alcohol dependence Bipolar disorder Controlled diabetes mellitus with hyperglycemia DM neuropathy, painful Essential (primary) hypertension History of alcohol abuse daily use of hard liquor History of coronary artery disease History of CVA (cerebrovascular accident) 2009 Right side weakness due to a bleed History of memory loss History of schizophrenia Mixed hyperlipidemia Nicotine dependence, cigarettes, uncomplicated Psoriasis Psychiatric care Seizure disorder Traumatic brain injury Surgical History (Updated 08/21/22 @ 10:51 by Caryn Medina MD) History of cardiac catheterization ~2014 done in [place], reports they discussed possible stent but he declined History of colonoscopy with polypectomy 2016 History of esophagogastroduodenoscopy (EGD) History of eye surgery Family History Other Dementia Diabetes Hypertension Lung disease Psychiatric illness Stroke Denies family history of Chronic kidney disease (CKD) Anesthesia complication Bleeding disorder Cancer Social History (Updated 08/21/22 @ 11:48 by Caryn Medina MD) Smoking and tobacco status: current every day smoker cigarettes Packs smoked per day: 2.5 Second hand smoke exposure: Yes Alcohol intake: current Alcohol intake frequency: 3 or more drinks per day Alcohol type: hard liquor Adopted: No Caregiver/support person: Yes Lives independently: No Household members: friend(s) and caregiver Housing: Manufactured/Mobile home Marital status: Number of children: 8 service: No Current occupational status: disabled Pets and animals: Yes Current gender identity: Male Physical Exam Const: COMMON NORMALS: alert GENERAL APPEARANCE: cooperative and well developed HENMT: COMMON NORMALS: normocephalic and atraumatic HEAD & SCALP: normocephalic and atraumatic Eye: COMMON NORMALS: conjunctivae normal CONJUNCTIVA: Yes conjunctivae normal SCLERA: sclerae normal Neck/C-Spine: COMMON NORMALS: supple GENERAL: Yes trachea midline Resp: COMMON NORMALS: clear to auscultation bilaterally EFFORT & INSPECTION: Yes able to speak in complete sentences AUSCULTATION: clear to auscultation bilaterally Cardio: COMMON NORMALS: regular rate and regular rhythm RATE: regular rate RHYTHM: regular rhythm GI: COMMON NORMALS: Soft to palpation PALPATION: Yes Soft to palpation, Yes Tenderness to palpation present (GI), No Guarding due to palpation present (GI), No Rigid due to palpation and Yes Ascites present Extremity: GENERAL: Yes normal exam except as noted and No edema Neuro: COMMON NORMALS: moves all extremities SENSORIUM/ORIENTATION: Yes alert and No Orientation impaired Psych: COMMON NORMALS: mental status grossly normal and Normal thought process present THOUGHT PROCESS: Normal thought process present Course Vital Signs: Vital signs: Vital Signs Temperature 97.8 F 08/21/22 22:00 Pulse Rate 114 H 08/21/22 22:00 Respiratory Rate 18 08/21/22 22:00 Blood Pressure 120/80 08/21/22 22:00 Pulse Oximetry 90 08/21/22 22:00 Oxygen Delivery Me thod 08/21/22 22:00 MDM - Psych Medical Decision Making 47-year-old gentleman with longstanding history of alcohol abuse and psychiatric disorder presenting to the emergency department for suicidal ideation and concern over abdominal distention. Patient is nontoxic on exam and does not fit clinical toxidrome with reported overdose. There is no evidence of acute surgical abdomen or peritonitis. EKG notable for sinus rhythm, left axis deviation normal intervals, no STEMI. Labs with no leukocytosis, normal hemoglobin and platelet count. Metabolic panel similar to prior without acute derangement. AST elevation minimal. Albumin is low consistent with prior. Normal TSH. Toxic ingestions negative with exception of elevated ethyl alcohol level at 82. CT imaging pending. I reviewed x-ray from yesterday. Patient does not have evidence of respiratory or cardiac compromise secondary to volume status. Patient has a longstanding history of similar presentations. He demonstrates essentially no long-term commitment to sobriety or improvement in mental health. He has a history of noncompliance with outpatient appointments. Plan for psychiatry service consult. Patient care handed off to Dr. Louis pending psychiatry service consult for disposition. Medical Records I reviewed the patient's medical records. Lab Data I reviewed the patient's lab results. 08/21/22 03:00 08/21/22 03:00 Radiology Impressions Abdomen/Pelvis CT 08/21/22 03:04 IMPRESSION: 1. Large amount of ascites and sequelae of portal hypertension as described above. 2. Hepatic steatosis with interval development of areas of decreased attenuation adjacent to the gallbladder fossa which may represent benign cyst versus focal fatty infiltration however other etiologies including malignancy cannot be excluded. 3. Other chronic/incidental findings as described above. Paracentesis Ultrasound 08/21/22 09:06 IMPRESSION: Uncomplicated ultrasound-guided paracentesis. Removal of 6000 cc ascites Laboratory Results WBC 6.6 10^3/uL (4.0-10.0) 08/21/22 03:00 RBC 4.16 10^6/uL (4.1-5.3) 08/21/22 03:00 Hgb 13.8 g/dL (11.7-16.6) 08/21/22 03:00 Hct 41.3 % (42.0-52.0) L 08/21/22 03:00 MCV 99.3 fl (80-94) H 08/21/22 03:00 MCH 33.2 pg (28.0-34.0) 08/21/22 03:00 MCHC 33.4 g/dL (30.0-36.0) 08/21/22 03:00 RDW 13.5 % (12.1-15.1) 08/21/22 03:00 Plt Count 187 10^3/cmm (130-400) 08/21/22 03:00 MPV 10.2 fL (7.4-10.4) 08/21/22 03:00 Neut % (Auto) 62.3 % 08/21/22 03:00 Lymph % (Auto) 19.2 % 08/21/22 03:00 Tripp % (Auto) 10.0 % 08/21/22 03:00 Eos % (Auto) 6.8 % 08/21/22 03:00 Baso % (Auto) 1.4 % 08/21/22 03:00 Neut # (Auto) 4.13 10^3/uL (1.8-7.7) 08/21/22 03:00 Lymph # (Auto) 1.3 10^3/uL (0.8-4.8) 08/21/22 03:00 Tripp # (Auto) 0.7 10^3/uL (0.2-0.9) 08/21/22 03:00 Eos # (Auto) 0.5 10^3/uL (0.0-0.8) 08/21/22 03:00 Baso # (Auto) 0.1 10^3/uL (0.0-0.1) 08/21/22 03:00 Nucleated RBC % (auto) 0 % 08/21/22 03:00 Nucleated RBCs # 0.0 /100WBC 08/21/22 03:00 Sodium 139 mmol/L (136-145) 08/21/22 03:00 Potassium 3.6 mmol/L (3.5-5.1) 08/21/22 03:00 Chloride 105 mmol/L (98-107) 08/21/22 03:00 Carbon Dioxide 23 mmol/L (22-29) 08/21/22 03:00 Anion Gap 14.6 (5-19) 08/21/22 03:00 BUN 3 mg/dL (6-20) L 08/21/22 03:00 Creatinine 0.5 mg/dL (0.7-1.2) L 08/21/22 03:00 GFR Calculation 176.7 mL/min (90-130) H 08/21/22 03:00 Glucose 114 mg/dL (65-115) 08/21/22 03:00 Calculated Osmolality 285 mOsm/kg (285-295) 08/21/22 03:00 Calcium 8.3 mg/dL (8.5-10.5) L 08/21/22 03:00 Total Bilirubin 0.6 mg/dL (0.15-1.2) 08/21/22 03:00 AST 45 U/L (0-40) H 08/21/22 03:00 ALT 11 U/L (0-41) 08/21/22 03:00 Alkaline Phosphatase 72 U/L (40-130) 08/21/22 03:00 Total Protein 6.1 g/dL (6.6-8.7) L 08/21/22 03:00 Albumin 2.5 g/dL (3.5-5.2) L 08/21/22 03:00 Globulin 3.6 g/dL (1.3-4.6) 08/21/22 03:00 TSH 4.08 uIU/mL (0.27-4.20) 08/21/22 03:00 Salicylates 0.5 mg/dL (3-10) L 08/21/22 03:00 Acetaminophen < 5.0 ug/mL (10-30) L 08/21/22 03:00 Ethyl Alcohol 82 mg/dL (0-10) H 08/21/22 03:00 Discharge Plan Discharge Patient Disposition: Admitted As Inpatient Admit Provider: Simeon Mahan Clinical Impression: Suicidal ideation, Cirrhosis of liver, Ascites Condition: Stable Sign Out Sign Out Data: Patient Sign Out occurred on 08/21/22 at 06:13. Patient's care was discussed, and care was transferred from to Leobardo Louis DO. Coding Level of Care Code ED Hot Iron Worker for Chg Fwd Documented by User: Leobardo Louis DO 08/21/22 10:15 HPI - Psych General: Chief Complaint: Psychiatric Symptoms Stated Complaint: SI, ETOH Time Seen by Provider: 08/21/22 02:53 PFSH ED PFSH: Medical History (Updated 08/21/22 @ 11:26 by Caryn Medina MD) Acne rosacea ALC (alcoholic liver cirrhosis) Alcohol dependence Bipolar disorder Controlled diabetes mellitus with hyperglycemia DM neuropathy, painful Essential (primary) hypertension History of alcohol abuse daily use of hard liquor History of coronary artery disease History of CVA (cerebrovascular accident) 2009 Right side weakness due to a bleed History of memory loss History of schizophrenia Mixed hyperlipidemia Nicotine dependence, cigarettes, uncomplicated Psoriasis Psychiatric care Seizure disorder Traumatic brain injury Surgical History (Updated 08/21/22 @ 10:51 by Caryn Medina MD) History of cardiac catheterization ~2014 done in [place], reports they discussed possible stent but he declined History of colonoscopy with polypectomy 2016 History of esophagogastroduodenoscopy (EGD) History of eye surgery Family History Other Dementia Diabetes Hypertension Lung disease Psychiatric illness Stroke Denies family history of Chronic kidney disease (CKD) Anesthesia complication Bleeding disorder Cancer Social History (Updated 08/21/22 @ 11:48 by Caryn Medina MD) Smoking and tobacco status: current every day smoker cigarettes Packs smoked per day: 2.5 Second hand smoke exposure: Yes Alcohol intake: current Alcohol intake frequency: 3 or more drinks per day Alcohol type: hard liquor Adopted: No Caregiver/support person: Yes Lives independently: No Household members: friend(s) and caregiver Housing: Manufactured/Mobile home Marital status: Number of children: 8 service: No Current occupational status: disabled Pets and animals: Yes Current gender identity: Male Course Vital Signs: Vital signs: Vital Signs Temperature 97.8 F 08/21/22 22:00 Pulse Rate 114 H 08/21/22 22:00 Respiratory Rate 18 08/21/22 22:00 Blood Pressure 120/80 08/21/22 22:00 Pulse Oximetry 90 08/21/22 22:00 Oxygen Delivery Me thod 08/21/22 22:00 MDM - Psych Medical Decision Making 47-year-old gentleman with longstanding history of alcohol abuse and psychiatric disorder presenting to the emergency department for suicidal ideation and concern over abdominal distention. Patient is nontoxic on exam and does not fit clinical toxidrome with reported overdose. There is no evidence of acute surgical abdomen or peritonitis. EKG notable for sinus rhythm, left axis deviation normal intervals, no STEMI. Labs with no leukocytosis, normal hemoglobin and platelet count. Metabolic panel similar to prior without acute derangement. AST elevation minimal. Albumin is low consistent with prior. Normal TSH. Toxic ingestions negative with exception of elevated ethyl alcohol level at 82. CT imaging pending. I reviewed x-ray from yesterday. Patient does not have evidence of respiratory or cardiac compromise secondary to volume status. Patient has a longstanding history of similar presentations. He demonstrates essentially no long-term commitment to sobriety or improvement in mental health. He has a history of noncompliance with outpatient appointments. Plan for psychiatry service consult. Patient care handed off to Dr. Louis pending psychiatry service consult for disposition. Care assumed from Dr. Patterson at change of shift. CT shows significant ascites vital signs stable. Laboratory test reviewed. Consult psychiatry for suicidal ideation. Discussed Dr. Kirkpatrick will admit the patient consult hospitalist will also consult radiology for paracentesis. Lab Data 08/21/22 03:00 08/21/22 03:00 Radiology Impressions Abdomen/Pelvis CT 08/21/22 03:04 IMPRESSION: 1. Large amount of ascites and sequelae of portal hypertension as described above. 2. Hepatic steatosis with interval development of areas of decreased attenuation adjacent to the gallbladder fossa which may represent benign cyst versus focal fatty infiltration however other etiologies including malignancy cannot be excluded. 3. Other chronic/incidental findings as described above. Paracentesis Ultrasound 08/21/22 09:06 IMPRESSION: Uncomplicated ultrasound-guided paracentesis. Removal of 6000 cc ascites Laboratory Results WBC 6.6 10^3/uL (4.0-10.0) 08/21/22 03:00 RBC 4.16 10^6/uL (4.1-5.3) 08/21/22 03:00 Hgb 13.8 g/dL (11.7-16.6) 08/21/22 03:00 Hct 41.3 % (42.0-52.0) L 08/21/22 03:00 MCV 99.3 fl (80-94) H 08/21/22 03:00 MCH 33.2 pg (28.0-34.0) 08/21/22 03:00 MCHC 33.4 g/dL (30.0-36.0) 08/21/22 03:00 RDW 13.5 % (12.1-15.1) 08/21/22 03:00 Plt Count 187 10^3/cmm (130-400) 08/21/22 03:00 MPV 10.2 fL (7.4-10.4) 08/21/22 03:00 Neut % (Auto) 62.3 % 08/21/22 03:00 Lymph % (Auto) 19.2 % 08/21/22 03:00 Tripp % (Auto) 10.0 % 08/21/22 03:00 Eos % (Auto) 6.8 % 08/21/22 03:00 Baso % (Auto) 1.4 % 08/21/22 03:00 Neut # (Auto) 4.13 10^3/uL (1.8-7.7) 08/21/22 03:00 Lymph # (Auto) 1.3 10^3/uL (0.8-4.8) 08/21/22 03:00 Tripp # (Auto) 0.7 10^3/uL (0.2-0.9) 08/21/22 03:00 Eos # (Auto) 0.5 10^3/uL (0.0-0.8) 08/21/22 03:00 Baso # (Auto) 0.1 10^3/uL (0.0-0.1) 08/21/22 03:00 Nucleated RBC % (auto) 0 % 08/21/22 03:00 Nucleated RBCs # 0.0 /100WBC 08/21/22 03:00 Sodium 139 mmol/L (136-145) 08/21/22 03:00 Potassium 3.6 mmol/L (3.5-5.1) 08/21/22 03:00 Chloride 105 mmol/L (98-107) 08/21/22 03:00 Carbon Dioxide 23 mmol/L (22-29) 08/21/22 03:00 Anion Gap 14.6 (5-19) 08/21/22 03:00 BUN 3 mg/dL (6-20) L 08/21/22 03:00 Creatinine 0.5 mg/dL (0.7-1.2) L 08/21/22 03:00 GFR Calculation 176.7 mL/min (90-130) H 08/21/22 03:00 Glucose 114 mg/dL (65-115) 08/21/22 03:00 Calculated Osmolality 285 mOsm/kg (285-295) 08/21/22 03:00 Calcium 8.3 mg/dL (8.5-10.5) L 08/21/22 03:00 Total Bilirubin 0.6 mg/dL (0.15-1.2) 08/21/22 03:00 AST 45 U/L (0-40) H 08/21/22 03:00 ALT 11 U/L (0-41) 08/21/22 03:00 Alkaline Phosphatase 72 U/L (40-130) 08/21/22 03:00 Total Protein 6.1 g/dL (6.6-8.7) L 08/21/22 03:00 Albumin 2.5 g/dL (3.5-5.2) L 08/21/22 03:00 Globulin 3.6 g/dL (1.3-4.6) 08/21/22 03:00 TSH 4.08 uIU/mL (0.27-4.20) 08/21/22 03:00 Salicylates 0.5 mg/dL (3-10) L 08/21/22 03:00 Acetaminophen < 5.0 ug/mL (10-30) L 08/21/22 03:00 Ethyl Alcohol 82 mg/dL (0-10) H 08/21/22 03:00 Discharge Plan Discharge Patient Disposition: Admitted As Inpatient Admit Provider: Simeon Mahan Clinical Impression: Suicidal ideation, Cirrhosis of liver, Ascites Condition: Stable Sign Out Sign Out Data: Patient Sign Out occurred on 08/21/22 at 06:13. Patient's care was discussed, and care was transferred from to Leboardo Louis DO. Coding Level of Care Code ED Hot Iron Worker for Carlos Armstrong
--- NOTE | 2022-08-21 03:04 | CTR_ITS ---
PROCEDURE INFORMATION: Exam: CT Abdomen And Pelvis Without Contrast Exam date and time: 08/21/2022 3:26 AM Age: 47 years old Clinical indication: Bloating; Abdominal pain; Generalized; Prior surgery; Surgery type: Coronary stent; Patient HX: C/O diffuse abd pain with distention. ; Additional info: Abd pain, distention TECHNIQUE: Imaging protocol: Computed tomography of the abdomen and pelvis without contrast. Radiation optimization: All CT scans at this facility use at least one of these dose optimization techniques: automated exposure control; mA and/or kV adjustment per patient size (includes targeted exams where dose is matched to clinical indication); or iterative reconstruction. REPORTING DATA: Count of CT and Cardiac NM exams in prior 12 months: This patient has received 8 known CTs and 0 known cardiac nuclear medicine studies in the 12 months prior to the current study. COMPARISON: CT abdomen pelvis wo con [id number] 04/14/2022 10:35 AM RADIATION DOSE METRICS: Total DLP (mGy-cm): 1179.53 FINDINGS: Liver: The hepatic parenchyma is heterogenous and diffusely hypoattenuating with new areas of decreased attenuation adjacent to the gallbladder fossa . Gallbladder and bile ducts: No gallbladder wall thickening. No calcified stones. No ductal dilation. Pancreas: No intraparenchymal lesions are seen. No ductal dilation. Spleen: Splenomegaly. No intraparenchymal lesions are seen. Adrenal glands: Normal. No mass. Kidneys and ureters: No solid intraparenchymal soft tissue lesion. No hydronephrosis. Stomach and bowel: No pathologic bowel dilatation. No obstruction. Colonic diverticula, no definite CT findings to suggest acute diverticulitis however exam sensitivity and specificity is somewhat limited by technique and ascites. Appendix: No evidence of appendicitis. Intraperitoneal space: No free air. Large amount of ascites. Vasculature: Atheromatous changes within the visualized portion of the aorta and its major branching vessels are within normal limits of variation for the patient's age. No abdominal aortic aneurysm. Perisplenic and perigastric varices are re-identified. Lymph nodes: No pathologically enlarged lymph nodes. Urinary bladder: Unremarkable as visualized. Reproductive: Calcifications are seen within a mildly heterogenous prostate. Bones/joints: No acute fracture. Large posterior disc osteophyte complex at L4-L5 and chronic appearing compression changes at T8 are re-identified. Soft tissues: Bilateral gynecomastia. Stranding and induration of the subcutaneous tissues adjacent to the umbilicus . CT/CT abdomen pelvis wo con [id number] IMPRESSION: 1. Large amount of ascites and sequelae of portal hypertension as described above. 2. Hepatic steatosis with interval development of areas of decreased attenuation adjacent to the gallbladder fossa which may represent benign cyst versus focal fatty infiltration however other etiologies including malignancy cannot be excluded. 3. Other chronic/incidental findings as described above.
--- NOTE | 2022-08-21 03:04 | ECG_ITS ---
[facility] Test Date: 2022-08-21 Pat Name: Reinaldo Flores Department: Room: Gender: Male Esthetician Facialist: : 1975 Requested By: Saulo Patterson Order Number: [id number] Sharon MD: MINAL LIN Measurements Intervals [place] Rate: 92 P: -71 NE: 142 QRS: -30 QRSD: 100 T: 10 QT: 375 QTc: 466 Interpretive Statements ECTOPIC ATRIAL RHYTHM BORDERLINE LEFT AXIS DEVIATION [QRS AXIS < -20] LOW QRS VOLTAGE IN PRECORDIAL LEADS [QRS DEFLECTION < 1.0 mV IN CHEST LEADS] PATTERN CONSISTENT WITH PULMONARY DISEASE Compared to ECG 08/20/2022 17:18:40 Ectopic atrial rhythm now present Low QRS voltage now present Sinus tachycardia no longer present Myocardial infarct finding no longer present Electronically Signed On 08-21-2022 17:40:39 CDT by MINAL LIN [email or web address]
[2022-08-21 03:20] LABS: Basophils # 0.1 10^3/uL (0.0-0.1); Basophils % 1.4 %; Eosinophils # 0.5 10^3/uL (0.0-0.8); Eosinophils % 6.8 %; Hematocrit 41.3 % (42.0-52.0); Hemoglobin 13.8 g/dL (11.7-16.6); Lymphocytes # 1.3 10^3/uL (0.8-4.8); Lymphocytes % 19.2 %; Mean Corpuscular HGB Conc 33.4 g/dL (30.0-36.0); Mean Corpuscular Hemoglobin 33.2 pg (28.0-34.0); Mean Corpuscular Volume 99.3 fl (80-94); Mean Platelet Volume 10.2 fL (7.4-10.4); Monocytes # 0.7 10^3/uL (0.2-0.9); Neutrophils # 4.13 10^3/uL (1.8-7.7); Neutrophils % 62.3 %; Nucleated Red Blood Cells % 0 %; Platelet Count 187 10^3/cmm (130-400); Red Blood Count 4.16 10^6/uL (4.1-5.3); Red Cell Distribution Width 13.5 % (12.1-15.1); White Blood Count 6.6 10^3/uL (4.0-10.0)
[2022-08-21 03:41] LABS: Alanine Aminotransferase 11 U/L (0-41); Albumin Level 2.5 g/dL (3.5-5.2); Alcohol Level 82 mg/dL (0-10); Alkaline Phosphatase 72 U/L (40-130); Anion Gap 14.6 (5-19); Aspartate Amino Transferase 45 U/L (0-40); Blood Urea Nitrogen 3 mg/dL (6-20); Calcium 8.3 mg/dL (8.5-10.5); Carbon Dioxide 23 mmol/L (22-29); Chloride 105 mmol/L (98-107); Globulin 3.6 g/dL (1.3-4.6); Glomerular Filtration Rate 176.7 mL/min (90-130); Glucose 114 mg/dL (65-115); Osmolality Calculated 285 mOsm/kg (285-295); Potassium 3.6 mmol/L (3.5-5.1); Salicylate 0.5 mg/dL (3-10); Sodium 139 mmol/L (136-145); Thyroid Stimulating Hormone 4.08 uIU/mL (0.27-4.20); Total Bilirubin 0.6 mg/dL (0.15-1.2); Total Protein 6.1 g/dL (6.6-8.7)
[2022-08-21 03:42] LABS: Acetaminophen < 5.0 ug/mL (10-30)
--- NOTE | 2022-08-21 09:06 | US_ITS ---
WS: [id number] ULTRASOUND-GUIDED PARACENTESIS CLINICAL INFORMATION: ascites/liver cirrhosis COMPARISON: None. Procedure Informed consent: The risks, benefits, and alternatives of the procedure were discussed with the juan antonio ent. Verbal and written consent was obtained. Timeout: A timeout was performed to confirm the correct patient, procedure, and site. Preparation: A suitable skin site was identified. The patient was prepped and draped in usual sterile fashion. Lidocaine 1% was used for local anesthesia. Catheter: 4 [place] One-step Xeebeleh catheter. Side: RIGHT Lower quadrant. Fluid Volume: 6000 ml Color: Clear yellow DISPOSITION: Discarded safely. Complications: None. US/US paracentesis abd w [id number] IMPRESSION: Uncomplicated ultrasound-guided paracentesis. Removal of 6000 cc ascites
--- NOTE | 2022-08-21 10:18 | P.CONIM_ITS ---
Providers/Reason For Consult Consulting Physician/Specialty*: Frase/Hosptialist Reason for Consult*: Cirrhosis Requesting Physician: Dr Mahan, NPU physician via Dr Louis, ED physician Attending Physician: Simeon Mahan MD Primary Care Provider: YENI Perez History of Present Illness History of Present Illness Reinaldo Flores is a 47 year old male who presented to the emergency room with chief complaint of suicidal ideation earlier this morning. He had been in the emergency room yesterday afternoon with complaints of shortness of breath and some chest pain. He has a history of alcoholic cirrhosis. Reports that he has regular paracentesis usually at least once per week, sometimes as frequently as every 4 days but that his last paracentesis was approximately 2 weeks ago. He had had increasing abdominal girth that was impacting his breathing. While in the emergency room yesterday patient had several seizure-like episodes. He received 1 g of IV Keppra. He ended up choosing to leave against medical advice at that time. He says that he had additional seizures after leaving and that after his seizures he will often get crazy . He says that his reported suicidal ideation and he was brought into the emergency room because of this. At the time of my evaluation he denies ongoing suicidal thoughts. ER records indicate he described a 2-day history of thoughts of cutting his throat and an attempt to take some extra Celexa which he think he threw up. Case was discussed with psychiatry who accepted him. He has a known history of schizophrenia and depression. He is on Invega and citalopram and has had prior psychiatric admissions for suicidal thoughts and at least 1 episode of homicidal thoughts. He denies either with me. He does complain of continued increased difficulty breathing related to increased abdominal girth from his ascites. Given his history of alcoholic cirrhosis, hospitalist were consulted for management during his psychiatric stay. ER physician ordered ultrasound-guided paracentesis while in the ER. Drainage catheter was placed by radiology. 6 L of clear yellow fluid were obtained. Catheter was inadvertently removed during an attempted blood draw. He usually has 6 or 7 L removed by his report. The most recent ultrasound-guided paracenteses shows anywhere from 7678-7318 mL of fluid removal. Patient reports that his breathing feels better and his abdomen is much softer after the 6 L removal. He has not had any recent fevers. He has had abdominal pain that has been as high as 10 out of 10. Currently significantly improved. He has had nausea but with me denied any vomiting. He has had loose stools but this is not new for him. Cough is both productive and nonproductive. He reports compliance with his medications. Last drink was last evening. Review of Systems General: Reports: Other (ROS as per HPI or as otherwise noted here) Skin/Breast: Reports: sores (Not a new issue for him) Len/Lymph: Denies: easy bleeding Medications/Allergies Home Medications Medication Instructions Recorded Confirmed Last Taken Type levetiracetam 750 mg tablet 750 mg PO BID 30 days #60 tabs 06/12/22 08/21/22 07/23/22 Rx lactulose 10 gram/15 mL oral 30 ml PO TID PRN Constipation 07/13/22 08/21/22 Unknown History solution spironolactone 100 mg tablet 100 mg PO DAILY 07/13/22 08/21/22 07/22/22 History citalopram 20 mg tablet (Celexa) 20 mg PO DAILY #30 tabs 08/10/22 08/21/22 Unknown Rx paliperidone 6 mg tablet,extended 6 mg PO QAM #14 tabs 08/10/22 08/21/22 Unknown Rx release 24 hr (Invega) paliperidone palmitate 156 mg/mL 156 mg IM Q30D #1 mL 08/10/22 08/21/22 Unknown Rx intramuscular syringe (Invega Sustenna) paliperidone palmitate 234 mg/1.5 234 mg (1.5 mL) IM Q30D #1.5 mL 08/10/22 08/21/22 08/16/22 Rx mL intramuscular syringe (Invega Sustenna) gabapentin 400 mg capsule 400 mg PO TID 30 days #90 caps 08/16/22 08/21/22 Unknown Rx lisinopril 20 mg tablet 20 mg PO DAILY 90 days #90 tabs 08/16/22 08/21/22 Unknown Rx metformin 500 mg tablet,extended 500 mg PO BID 90 days #180 tabs 08/16/22 08/21/22 Unknown Rx release 24 hr trazodone 50 mg tablet 50 mg PO BEDTIME 08/21/22 08/21/22 Unknown History Allergies Allergy/AdvReac Type Severity Reaction Status Date / Time clozapine [From Clozaril] AdvReac Severe Lowered Verified 08/21/22 02:58 his WBC he says divalproex sodium AdvReac Severe swelling Verified 08/21/22 02:58 [From Depakote] haloperidol [From Haldol] AdvReac Severe swelling Verified 08/21/22 02:58 nitroglycerin AdvReac Severe Stopped Verified 08/21/22 02:58 heart Bee stings Allergy Severe Swelling & Uncoded 08/21/22 02:58 breathing problems, Anaphylactic shock PFSH Acute PFSH: Medical History (Updated 08/21/22 @ 11:26 by Caryn Medina MD) Acne rosacea ALC (alcoholic liver cirrhosis) Alcohol dependence Bipolar disorder Controlled diabetes mellitus with hyperglycemia DM neuropathy, painful Essential (primary) hypertension History of alcohol abuse daily use of hard liquor History of coronary artery disease History of CVA (cerebrovascular accident) 2009 Right side weakness due to a bleed History of memory loss History of schizophrenia Mixed hyperlipidemia Nicotine dependence, cigarettes, uncomplicated Psoriasis Psychiatric care Seizure disorder Traumatic brain injury Surgical History (Updated 08/21/22 @ 10:51 by Caryn Medina MD) History of cardiac catheterization ~2014 done in [place], reports they discussed possible stent but he declined History of colonoscopy with polypectomy 2016 History of esophagogastroduodenoscopy (EGD) History of eye surgery Family History Other Dementia Diabetes Hypertension Lung disease Psychiatric illness Stroke Denies family history of Chronic kidney disease (CKD) Anesthesia complication Bleeding disorder Cancer Social History (Updated 08/21/22 @ 11:48 by Caryn Medina MD) Smoking and tobacco status: current every day smoker cigarettes Packs smoked per day: 2.5 Second hand smoke exposure: Yes Alcohol intake: current Alcohol intake frequency: 3 or more drinks per day Alcohol type: hard liquor Adopted: No Caregiver/support person: Yes Lives independently: No Household members: friend(s) and caregiver Housing: Manufactured/Mobile home Marital status: Number of children: 8 service: No Current occupational status: disabled Pets and animals: Yes Current gender identity: Male Vitals/I&O/Wt Last Vital Signs Temp 98.0 F 08/21/22 02:53 Pulse 104 H 08/21/22 06:28 Resp 18 08/21/22 02:53 BP 119/71 08/21/22 06:28 Pulse Ox 98 08/21/22 08:12 O2 Del Method 08/21/22 08:12 Weight last 48 hrs Weight 95.254 kg Physical Exam Narrative: Awake and alert, oriented to person place and situation. Able to provide history. Pupils are reactive, extraocular movements are intact. Oropharynx with dry membranes, dentures noted. Neck is supple. Cardiovascular exam reveals a slightly tachycardic but regular rhythm. Intermittent productive sounding cough but lungs are clear without any rales rhonchi or wheezes noted. Abdomen is soft, rotund, positive bowel sounds. At the time of my initial evaluation catheter for peritoneal drainage was in the right lower quadrant connected to collection canisters. Lab came in and during attempts to adjust the bed rail to facilitate blood draw, peritoneal drain was inadvertently withdrawn. Pressure was held with gauze for a few minutes afterwards. Scant serosanguineous fluid was noted. Patient had had a total of 6 L removed. Patient has sores in different stages of healing around his abdomen in particular and to a lesser degree other areas. Skin is dry. Speech is clear, face symmetric, no involuntary movements. Normal affect. Data 08/21/22 03:00 08/21/22 03:00 Other Labs: Radiology Impressions Abdomen/Pelvis CT 08/21/22 03:04 IMPRESSION: 1. Large amount of ascites and sequelae of portal hypertension as described above. 2. Hepatic steatosis with interval development of areas of decreased attenuation adjacent to the gallbladder fossa which may represent benign cyst versus focal fatty infiltration however other etiologies including malignancy cannot be excluded. 3. Other chronic/incidental findings as described above. Laboratory Results WBC 6.6 10^3/uL (4.0-10.0) 08/21/22 03:00 RBC 4.16 10^6/uL (4.1-5.3) 08/21/22 03:00 Hgb 13.8 g/dL (11.7-16.6) 08/21/22 03:00 Hct 41.3 % (42.0-52.0) L 08/21/22 03:00 MCV 99.3 fl (80-94) H 08/21/22 03:00 MCH 33.2 pg (28.0-34.0) 08/21/22 03:00 MCHC 33.4 g/dL (30.0-36.0) 08/21/22 03:00 RDW 13.5 % (12.1-15.1) 08/21/22 03:00 Plt Count 187 10^3/cmm (130-400) 08/21/22 03:00 MPV 10.2 fL (7.4-10.4) 08/21/22 03:00 Neut % (Auto) 62.3 % 08/21/22 03:00 Lymph % (Auto) 19.2 % 08/21/22 03:00 Luna % (Auto) 10.0 % 08/21/22 03:00 Eos % (Auto) 6.8 % 08/21/22 03:00 Baso % (Auto) 1.4 % 08/21/22 03:00 Neut # (Auto) 4.13 10^3/uL (1.8-7.7) 08/21/22 03:00 Lymph # (Auto) 1.3 10^3/uL (0.8-4.8) 08/21/22 03:00 Luna # (Auto) 0.7 10^3/uL (0.2-0.9) 08/21/22 03:00 Eos # (Auto) 0.5 10^3/uL (0.0-0.8) 08/21/22 03:00 Baso # (Auto) 0.1 10^3/uL (0.0-0.1) 08/21/22 03:00 Nucleated RBC % (auto) 0 % 08/21/22 03:00 Nucleated RBCs # 0.0 /100WBC 08/21/22 03:00 Sodium 139 mmol/L (136-145) 08/21/22 03:00 Potassium 3.6 mmol/L (3.5-5.1) 08/21/22 03:00 Chloride 105 mmol/L (98-107) 08/21/22 03:00 Carbon Dioxide 23 mmol/L (22-29) 08/21/22 03:00 Anion Gap 14.6 (5-19) 08/21/22 03:00 BUN 3 mg/dL (6-20) L 08/21/22 03:00 Creatinine 0.5 mg/dL (0.7-1.2) L 08/21/22 03:00 GFR Calculation 176.7 mL/min (90-130) H 08/21/22 03:00 Glucose 114 mg/dL (65-115) 08/21/22 03:00 Calculated Osmolality 285 mOsm/kg (285-295) 08/21/22 03:00 Calcium 8.3 mg/dL (8.5-10.5) L 08/21/22 03:00 Total Bilirubin 0.6 mg/dL (0.15-1.2) 08/21/22 03:00 AST 45 U/L (0-40) H 08/21/22 03:00 ALT 11 U/L (0-41) 08/21/22 03:00 Alkaline Phosphatase 72 U/L (40-130) 08/21/22 03:00 Total Protein 6.1 g/dL (6.6-8.7) L 08/21/22 03:00 Albumin 2.5 g/dL (3.5-5.2) L 08/21/22 03:00 Globulin 3.6 g/dL (1.3-4.6) 08/21/22 03:00 TSH 4.08 uIU/mL (0.27-4.20) 08/21/22 03:00 Salicylates 0.5 mg/dL (3-10) L 08/21/22 03:00 Acetaminophen < 5.0 ug/mL (10-30) L 08/21/22 03:00 Ethyl Alcohol 82 mg/dL (0-10) H 08/21/22 03:00 A&P Assessment and plan (1) Suicidal ideation: Management as per psychiatry. Has a history of schizophrenia on Invega and depression on citalopram. (2) Abdominal ascites: Secondary to alcoholic liver cirrhosis, has been undergoing fairly regular abdominal paracenteses lately with last approximately 2 weeks ago. Chronically on spironolactone. Status post paracentesis in the emergency room today with r emoval of 6 L. (3) ALC (alcoholic liver cirrhosis): With abdominal ascites, macrocytosis, normal INR a few weeks ago, low BUN, minimal transaminase elevation, normal bilirubin, hypoalbuminemia, histroy of hyperammonemia, imaging sequela of portal hypertension, hepatic steatosis with some decreased attenuation in the gallbladder fossa identified on CT imaging today that will need follow-up. (4) Alcohol dependence: Continues to drink heavily daily. History of alcohol withdrawal seizures and other withdrawal symptoms. Has associated macrocytosis and above described alcoholic liver disease. (5) Essential (primary) hypertension: Chronically on lisinopril in addition to spironolactone. (6) Controlled diabetes mellitus with hyperglycemia: Chronically on metformin. Not an ideal treatment in the setting of known liver disease but current liver enzymes are not significantly elevated. Will need to be monitored over time and treatment adjusted and eventually discontinued as needed. Has associated diabetic neuropathy for which she is on gabapentin. 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 (8) Nicotine dependence, unspecified, uncomplicated: Smokes 2 to 3 packs of cigarettes a day. Plan Being admitted to psychiatric unit Will defer continuation of citalopram and Invega plus trazodone to psychiatry Thiamine, folate, multivitamin CIWA protocol with close monitoring Monitor blood pressures today status post paracentesis Monitor reaccumulation of peritoneal fluid over the next few days, may require additional paracentesis while in the hospital depending on length of stay versus arrangements for outpatient paracentesis shortly after discharge depending on clinical course Continue spironolactone Continue lactulose Will check ammonia level next time patient has blood drawn Plan to restart lisinopril tomorrow as blood pressures allow Continue home gabapentin Continue home Keppra Hold metformin; sliding scale insulin for diabetes as needed Nicotine replacement as needed Breathing treatments as needed; no history of COPD documented but does describe chronic cough that worsens with increased abdominal ascites BNP in July was 60 Limit acetaminophen to no more than 2 grams per day Recommend followup CT imaging in the next few months to reevaluate the low- attenuation area noted in the gallbladder fossa on today's CT image Recommend follow-up with primary care provider to evaluate potential alternatives to metformin for diabetes control given known liver disease Supportive care otherwise Thank you for consultation we will follow along and address medical issues as needed and Low Time for a total of Total time in patient care (in minutes): 55 minutes, includes reviewing past or interval history, examining/interviewing patient, placing orders and documenting encounter Diagnoses Suicidal ideation R45.851 Abdominal ascites R18.8 ALC (alcoholic liver cirrhosis) K70.30 Alcohol dependence F10.20 Essential (primary) hypertension I10 Controlled diabetes mellitus with hyperglycemia E11.65 Diabetes mellitus type: type 2 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
[2022-08-21 11:43] LABS: Glucose Point of Care 97 mg/dL (70-110)
--- NOTE | 2022-08-21 12:24 | PC.NURSE ---
47y/o MALE ADMITTED TO NPU UNIT, ROOM 153 BED 2 WITH DIAGNOSES OF SUICIDAL IDEATION FROM ED. ARRIVED ON UNIT VIA WHEELCHAIR ESCORTED BY SECURITY AND STAFF. PATIENT STATED HE WAS BROUGHT TO ED VIA AMBULANCE FROM HOME DUE TO HAVING A SEIZURE AT HOME AND STATED HE SAID HE WANTED TO KILL HIMSELF. PT. STATED HE DOESN'T REMEMBER SAYING IT. PT. ALSO REPORTED HE HAD A SZ IN THE RESTROOM DURING HIS TIME IN THE ED AND WAS FOUND ON THE BATHROOM FLOOR. DENIES ANXIETY AND DEPRESSION;PT. DENIES SI/HI AT PRESENT BUT STATED HE WAS HAVING AUDITORY HALLUCINATION; HEARING YELLING AND SCREAMING DURING ASSESSMENT.DENIES ANY PAIN. PT. HAS EXTENSIVE MEDICAL HX. AND HAS BEEN ADMITTED TO NPU BEFORE FOR PSYCH ISSUES. REPORTED BY RN IN ED PATIENT HAD 6 CANISTER OF FLUID REMOVED DURING PARACENTESIS. PT. STATES EVERY 4/5 DAYS HE HAS PROCEDURE DONE BUT HAD MISSED HIS LAST APPOINTMENT. PT. ADMIT WEIGHT ON UNIT WAS 196 LBS. PT. WAS ADMITTED VOLUNTARILY. ORIENTATED TO UNIT. PLACED ON CONSISTENT CARB DIET DUE TO DIABETIC DX. PT.DENIES DRUG USE BUT STATES HE DRINKS ALCOHOL DAILY. IN ROOM RESTING AT THIS TIME.
[2022-08-21 13:20] LABS: Ammonia 51 umol/L (16-60)
[2022-08-21] MEDS: gabapentin 400 mg Capsule PO ×2 (14:37→20:47)
--- NOTE | 2022-08-21 14:40 | P.NPUHP_ITS ---
Providers/Chief Complaint Admitting Physician: Simeon Mahan MD Primary Care Provider: YENI Perez Chief Complaint: SI, ETOH HPI NPU History of Present Illness Reinaldo Flores is a 47 year old male with a history of multiple inpatient psychiatric hospitalizations and a history of schizophrenia and major depression along with alcohol dependence who was admitted with vague complaints of suicide. The patient was admitted to the neuropsychiatric unit for further treatment and evaluation. He reports here that he had not made any statements to hurt himself and that he could not remember what he had stated because he was in the midst of a seizure yesterday. He had reported that he had paracentesis yesterday and states that he had drank alcohol just prior to coming into the emergency room yesterday. He has reported no change with his paranoia and reports depression. He reports that he is not interested in receiving treatment for his alcohol use and states that he will probably from his continued alcohol consumption. He reports that he has been receiving paracentesis at least weekly and states that he may have made a threat to cut his throat although he states he does not remember this clearly. He does complain of difficulties with shortness of breath associated with his increasing abdominal girth and ascites. He reports a significant history of alcohol withdrawal symptoms. He reports no acute stressors. He has indicated a history of noncompliance with his medications although he states that he had received his Invega sustain a shot at 234 mg last week at his primary care's office in [place]. Past Psychiatric History: Is notable for multiple inpatient psychiatric hospitalizations.? He reports last being admitted here in May of 2022. He reports history of alcohol dependence, schizophrenia and? traumatic brain injury.? He was last seen at his outpatient appointment 2 weeks ago at [facility]. Hx of multiple psychiatric medication trials: zyprexa, valium, campral, naltrexone, Current medications: invega sustenna IM, Citalopram Substance abuse hx: reports misuse of stimulants in the past but reports active use of alcohol for over 20 years with longest period of abstinence was 1 year. Medical History: Hx of reported stroke in 2010, traumatic brain injury, Grand mal seizures, diabetes, diabetic neuropathy, alcoholic sirrosis. Allergies: haldol, NTG, Clozaril, Bee stings. Medications: see below. Surgeries: cataract surgery Legal Hx: none reported Social Hx: lives in [place] with . 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 Meds NPU Home Medications Medication Instructions Recorded Confirmed Last Taken Type levetiracetam 750 mg tablet 750 mg PO BID 30 days #60 tabs 06/12/22 08/21/22 07/23/22 Rx lactulose 10 gram/15 mL oral 30 ml PO TID PRN Constipation 07/13/22 08/21/22 Unknown History solution spironolactone 100 mg tablet 100 mg PO DAILY 07/13/22 08/21/22 07/22/22 History citalopram 20 mg tablet (Celexa) 20 mg PO DAILY #30 tabs 08/10/22 08/21/22 Unknown Rx paliperidone 6 mg tablet,extended 6 mg PO QAM #14 tabs 08/10/22 08/21/22 Unknown Rx release 24 hr (Invega) paliperidone palmitate 156 mg/mL 156 mg IM Q30D #1 mL 08/10/22 08/21/22 Unknown Rx intramuscular syringe (Invega Sustenna) paliperidone palmitate 234 mg/1.5 234 mg (1.5 mL) IM Q30D #1.5 mL 08/10/22 08/21/22 08/16/22 Rx mL intramuscular syringe (Invega SustAmakem) gabapentin 400 mg capsule 400 mg PO TID 30 days #90 caps 08/16/22 08/21/22 Unknown Rx lisinopril 20 mg tablet 20 mg PO DAILY 90 days #90 tabs 08/16/22 08/21/22 Unknown Rx metformin 500 mg tablet,extended 500 mg PO BID 90 days #180 tabs 08/16/22 08/21/22 Unknown Rx release 24 hr trazodone 50 mg tablet 50 mg PO BEDTIME 08/21/22 08/21/22 Unknown History Allergies Allergy/AdvReac Type Severity Reaction Status Date / Time clozapine [From Clozaril] AdvReac Severe Lowered Verified 08/21/22 02:58 his WBC he says divalproex sodium AdvReac Severe swelling Verified 08/21/22 02:58 [From Depakote] haloperidol [From Haldol] AdvReac Severe swelling Verified 08/21/22 02:58 nitroglycerin AdvReac Severe Stopped Verified 08/21/22 02:58 heart Bee stings Allergy Severe Swelling & Uncoded 08/21/22 02:58 breathing problems, Anaphylactic shock PFS NPU PFS: Medical History (Updated 08/21/22 @ 11:26 by Caryn Medina MD) Acne rosacea ALC (alcoholic liver cirrhosis) Alcohol dependence Bipolar disorder Controlled diabetes mellitus with hyperglycemia DM neuropathy, painful Essential (primary) hypertension History of alcohol abuse daily use of hard liquor History of coronary artery disease History of CVA (cerebrovascular accident) 2009 Right side weakness due to a bleed History of memory loss History of schizophrenia Mixed hyperlipidemia Nicotine dependence, cigarettes, uncomplicated Psoriasis Psychiatric care Seizure disorder Traumatic brain injury Surgical History (Updated 08/21/22 @ 10:51 by Caryn Medina MD) History of cardiac catheterization ~2014 done in [place], reports they discussed possible stent but he declined History of colonoscopy with polypectomy 2015 History of esophagogastroduodenoscopy (EGD) History of eye surgery Family History Other Dementia Diabetes Hypertension Lung disease Psychiatric illness Stroke Denies family history of Chronic kidney disease (CKD) Anesthesia complication Bleeding disorder Cancer Social History (Updated 08/21/22 @ 11:48 by Caryn Medina MD) Smoking and tobacco status: current every day smoker cigarettes Packs smoked per day: 2.5 Second hand smoke exposure: Yes Alcohol intake: current Alcohol intake frequency: 3 or more drinks per day Alc ohol type: hard liquor Adopted: No Caregiver/support person: Yes Lives independently: No Household members: friend(s) and caregiver Housing: Manufactured/Mobile home Marital status: Number of children: 8 service: No Current occupational status: disabled Pets and animals: Yes Current gender identity: Male Mental Status Exam MSE Comments: This is an obese white male with hospital attire with interm ittent eye contact and poor grooming lying in his bed in some significant distress. He appeared to rocking in steady fashion while in bed. Cooperative with exam and mild to moderate distress. Speech was normal rate and volume. Mood described as terrible. His affect was mood congruent. Thought process:linear, logical Thought content: Patient denied suicidal or homicidal ideations, there were no delusions reported or noted, he denied any auditory or visual hallucinations. Attention and concentration appeared intact and memory was mostly reliable but none were formally tested. The alert and oriented x3. Insight is poor. His impulse control is impaired, His judgment is limited. Vitals/I&O/Wt Last Vital Signs Temp 97.8 F 08/21/22 11:02 Pulse 105 H 08/21/22 11:02 Resp 18 08/21/22 11:02 BP 143/91 08/21/22 11:03 Pulse Ox 96 08/21/22 11:03 O2 Del Method 08/21/22 11:37 Weight last 48 hrs Weight 88.904 kg Weight 95.254 kg Data NPU 08/21/22 03:00 08/21/22 03:00 A&P Assessment and plan (1) Schizophrenia: (2) Major depression, recurrent, chronic: (3) ALC (alcoholic liver cirrhosis): (4) Traumatic brain injury: (5) Alcohol dependence: Plan The patient is a 47-year-old white male with schizophrenia major depressive disorder and alcohol dependence admitted with suicidal ideation with active medical problems including a cirrhotic liver. 1.? Continue current medications including invega, and citalopram.? 2.? Continue every 15 minute checks for safety. 3.? Encourage individual, group and milieu therapy once he has engaged. 4.? Encourage sobriety treatment after discharge to the hospital care to which she is willing to commit.? 5. [facility] protocol for alcohol withdrawal. Involuntary Hold Information 96 Hour Hold: 96 Hour Involuntary Admission: No 96 Hour Hold Ending Date: 06/12/22 96 Hour Hold Ending Time: 14:00 Attestations NPU Medical Necessity Statement*: Inpatient hospitalization is medically necessary and the clinically appropriate intervention at this time. We will monitor medications and make changes as indicated with likely some length of stay 2-4 days. Coding Level of Care Code Acute Code for [facility] Fwd Diagnoses Schizophrenia F20.9 Major depression, recurrent, chronic F33.9 ALC (alcoholic liver cirrhosis) K70.30 Traumatic brain injury S06.9X9A Alcohol dependence F10.20
[2022-08-21] MEDS: LORazepam 2 mg Tablet PO (14:45)
--- NOTE | 2022-08-21 16:52 | PC.NURSE ---
Urine collected for u/a and UDS and sent to lab.
[2022-08-21 17:34] LABS: Glucose Point of Care 101 mg/dL (70-110)
[2022-08-21 17:42] LABS: Amphetamines Screen Urine Negative (Negative); Barbiturates Screen Urine Negative (Negative); Benzodiazepines Screen Urine Negative (Negative); Cocaine Screen Urine Negative (Negative); Opiate Screen Urine Negative (Negative); PCP Screen Urine Negative (Negative); THC Screen Urine Negative (Negative)
[2022-08-21 17:46] LABS: Add Urine Microscopic? YES; Bilirubin Urine 1+ (Negative); Blood Urine Neg (Negative); Glucose Urine UA Norm (Normal); Ketones Urine 1+ (Negative); Leukocyte Esterase Urine Negative (Negative); Nitrate Urine Negative (Negative); Protein Urine Trace (Negative); Urine Appearance Hazy (CLEAR); Urine Color Dark Yellow (Yellow); Urobilinogen Urine 4 mg/dL (Negative); pH Urine 6 (5-7)
[2022-08-21 17:47] LABS: Add Urine Culture? No; Amorphous Sediment Urine TRACE /hpf; Bacteria Urine TRACE /hpf; Mucus Urine 2+ /hpf; RBC Urine 0-4 /hpf (0-2); WBC Urine 0-4 /hpf (0-5)
[2022-08-21] MEDS: levETIRAcetam 500 mg Tablet 750 MG PO (17:56)
[2022-08-21 20:48] LABS: Glucose Point of Care 108 mg/dL (70-110)
[2022-08-22 06:00] VITALS: BP 104/69; PULSE 96; TEMP 36.9; O2SAT 92
[2022-08-22] MEDS: nicotine 4 mg lozenge MUCOUS MEM ×4 (06:48→15:01)
[2022-08-22 07:53] LABS: Glucose Point of Care 120 mg/dL (70-110)
[2022-08-22] MEDS: multivitamin therapeutic Tablet 1 TAB PO (08:04)
[2022-08-22] MEDS: levETIRAcetam 500 mg Tablet 750 MG PO (08:05)
[2022-08-22] MEDS: folic acid 1 mg Tablet PO (08:05)
[2022-08-22] MEDS: thiamine 100 mg Tablet PO (08:05)
[2022-08-22] MEDS: spironolactone 25 mg Tablet 100 MG PO (08:05)
[2022-08-22] MEDS: lisinopril 20 mg Tablet PO (08:06)
[2022-08-22] MEDS: gabapentin 400 mg Capsule PO ×2 (08:06→15:01)
[2022-08-22] MEDS: LORazepam 2 mg/mL INJ 1 mL IM (10:06)
--- NOTE | 2022-08-22 10:08 | PC.NURSE ---
Nurse was called to patient's room; pt. sitting on mat on floor with legs crossed. Nghia RN in room with pt. stated he found patient laying on the floor in room. States he was sitting on the toliet and lost conscious.Body check done; jovana area to rt. forehead noted. Vital signs: BP-154/14-Q-602-R-22 O2 SAT-94% RA. Denies dizziness and vertigo at thie time. Ativan 2mg given. 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 Dr. Mahan notified. No new orders received.
--- NOTE | 2022-08-22 10:22 | CT_ITS ---
WS: [id number] CT HEAD NONCONTRAST HISTORY: fall TECHNIQUE: Contiguous axial imaging performed through the brain in 2.5 mm imaging. Bone and soft tiss ue windows. Sagittal and coronal reformats reviewed. All CT scans at [facility] use at least one of these dose optimization techniques: automated exposure control; mA and/or kV adjustment per pa tient size (includes targeted exams where dose is matched to clinical indication); or iterative recon struction. DLP: 1061.68 mGy.cm COMPARISON: 08/04/2019. No acute intracranial hemorrhage, midline shift or mass effect. Mild bilateral symmetric cerebral and cerebellar atrophy. No prior infarct. Mild small vessel ischemi c disease. Ventricles: Normal size with no hydrocephalus. Calcification noted within the vertebral arteries and cavernous sinuses. Very minimal calcification. Paranasal sinuses: As visualized are clear. Mastoid air cells: Well pneumatized. Calvarium and scalp: Skull is intact with no soft tissue edema or swelling. CT/CT head wo con* 78721 IMPRESSION: 1. No acute intracranial hemorrhage or edema. 2. Mild cerebral and cerebellar atrophy with small vessel ischemic disease. Si milar to the prior study.
--- NOTE | 2022-08-22 10:29 | PC.NURSE ---
HOSPITALIST, DR. CORTES ON UNIT TO SEE PATIENT. REC'D ORDER FOR STAT CT OF THE HEAD W/O CONTRAST. PT. ASSISTED IN WHEELCHAIR AND TRANSPORTED FOR CT. CT CALLED AND NOTIFIED OF STAT ORDER.
--- NOTE | 2022-08-22 11:30 | PM.PN ---
Subjective Subjective: seen today states he fell and hit his head denies any other symptoms at this time Vitals/I&O/Wt Last Vital Signs Temp 98.5 F 08/22/22 06:00 Pulse 96 08/22/22 06:00 Resp 18 08/21/22 22:00 BP 104/69 08/22/22 06:00 Pulse Ox 92 08/22/22 06:00 O2 Del Method 08/22/22 06:00 Weight last 48 hrs Weight 88.904 kg Weight 95.254 kg Physical Exam Narrative: sitting on floor with legs crossed rocking back and forth poor historian states he hit his head head nc/ slight erythema noted at right forehead, no apparent hematoma normal s1, s2 abdomen distended, BS present, soft, non tender extremities, no edema Data 08/21/22 03:00 08/21/22 03:00 A&P Assessment and plan (1) Suicidal ideation: Management as per psychiatry. Has a history of schizophrenia on Invega and depression on citalopram. (2) Abdominal ascites: Secondary to alcoholic liver cirrhosis, has been undergoing fairly regular abdominal paracenteses lately with last approximately 2 weeks ago. Chronically on spironolactone. Status post paracentesis in the emergency room on admission with removal of 6 L. (3) ALC (alcoholic liver cirrhosis): With abdominal ascites, macrocytosis, normal INR a few weeks ago, low BUN, minimal transaminase elevation, normal bilirubin, hypoalbuminemia, histroy of hyperammonemia, imaging sequela of portal hypertension, hepatic steatosis with some decreased attenuation in the gallbladder fossa identified on CT imaging today that will need follow-up at a later time. (4) Alcohol dependence: Continues to drink heavily daily. History of alcohol withdrawal seizures and other withdrawal symptoms. Has associated macrocytosis and above described alcoholic liver disease. (5) Essential (primary) hypertension: Chronically on lisinopril in addition to spironolactone. (6) Controlled diabetes mellitus with hyperglycemia: Chronically on metformin. Not an ideal treatment in the setting of known liver disease but current liver enzymes are not significantly elevated. Will need to be monitored over time and treatment adjusted and eventually discontinued as needed. Has associated diabetic neuropathy for which she is on gabapentin. Qualifiers: Diabetes mellitus type: type 2 Diabetes mellitus correction insulin use: without correction use Qualified Code(s): E11.65 - Type 2 diabetes mellitus with hyperglycemia (7) Seizure disorder: Chronically on Keppra. (8) Nicotine dependence, unspecified, uncomplicated: Smokes 2 to 3 packs of cigarettes a day. Plan Will defer continuation of citalopram and Invega plus trazodone to psychiatry Thiamine, folate, multivitamin CIWA protocol with close monitoring Monitor reaccumulation of peritoneal fluid over the next few days, may require additional paracentesis while in the hospital depending on length of stay versus arrangements for outpatient paracentesis shortly after discharge depending on clinical course Continue spironolactone Continue lactulose Continue home gabapentin Continue home Keppra Hold metformin; sliding scale insulin for diabetes as needed Nicotine replacement as needed Breathing treatments as needed; no history of COPD documented but does describe chronic cough that worsens with increased abdominal ascites BNP in July was 60 Limit acetaminophen to no more than 2 grams per day Recommend followup CT imaging in the next few months to reevaluate the low-attenuation area noted in the gallbladder fossa on today's CT image Recommend follow-up with primary care provider to evaluate potential alternatives to metformin for diabetes control given known liver disease Supportive care otherwise Check head CT today Thank you for consultation we will follow along and address medical issues as needed Attestations Medical Necessity Statement*: Defer to primary team Diagnoses Suicidal ideation R45.851 Abdominal ascites R18.8 ALC (alcoholic liver cirrhosis) K70.30 Alcohol dependence F10.20 Essential (primary) hypertension I10 Controlled diabetes mellitus with hyperglycemia E11.65 Diabetes mellitus type: type 2 Diabetes mellitus predatory animal exterminator insulin use: without predatory animal exterminator use Seizure disorder G40.909 Nicotine dependence, unspecified, uncomplicated F17.200
[2022-08-22 12:40] LABS: Glucose Point of Care 111 mg/dL (70-110)
--- NOTE | 2022-08-22 13:26 | PC.NURSE ---
Patient in room at present sitting on floor mat with legs crossed. No complaints of pain or discomfort. No seizure activity noted.
[2022-08-22 14:00] VITALS: BP 124/89; PULSE 120; RESP 22; TEMP 36.6; O2SAT 91
--- NOTE | 2022-08-22 14:20 | PC.NURSE ---
PATIENT CAME TO NURSES' STATION AND STATED HE IS VOLUNTARY AND WOULD LIKE TO BE DISCHARGED HOME. NURSE NOTIFIED DR. COY OF PATIENT'S REQUEST.
--- NOTE | 2022-08-22 14:31 | DCPLANNER ---
IMM completed 08/22/22 @ 1179. Pt was given a copy of rights and stated he understood his rights.
--- NOTE | 2022-08-22 16:10 | W.PM.NPUDCS ---
Diagnoses at Discharge Discharge Diagnosis (1) Schizophrenia: Status: Chronic (2) Major depression, recurrent, chronic: Status: Chronic (3) ALC (alcoholic liver cirrhosis): Status: Chronic (4) Traumatic brain injury: Status: Acute (5) Alcohol dependence: Status: Chronic Reason for Visit Reason for Visit: SI, ETOH Brief History: History of Present Illness Reinaldo Flores is a 47 year old male with a history of multiple inpatient psychiatric hospitalizations and a history of schizophrenia and major depression along with alcohol dependence who was admitted with vague complaints of suicide.? The patient was admitted to the neuropsychiatric unit for further treatment and evaluation.? He reports here that he had not made any statements to hurt himself and that he could not remember what he had stated because he was in the midst of a seizure yesterday.? He had reported that he had paracentesis yesterday and states that he had drank alcohol just prior to coming into the emergency room yesterday.? He has reported no change with his paranoia and reports depression.? He reports that he is not interested in receiving treatment for his alcohol use and states that he will probably from his continued alcohol consumption.? He reports that he has been receiving paracentesis at least weekly and states that he may have made a threat to cut his throat although he states he does not remember this clearly.? He does complain of difficulties with shortness of breath associated with his increasing abdominal girth and ascites.? He reports a significant history of alcohol withdrawal symptoms.? He reports no acute stressors.? He has indicated a history of noncompliance with his medications although he states that he had received his Invega sustain a shot at 234 mg last week at his primary care's office in [place]. Past Psychiatric History: Is notable for multiple inpatient psychiatric hospitalizations.? He reports last being admitted here in May of 2022. He reports history of alcohol dependence, schizophrenia and? traumatic brain injury.? He was last seen at his outpatient appointment 2 weeks? ago at [facility]. Hx of multiple psychiatric medication trials: zyprexa, valium, campral, naltrexone, Current medications: invega sustenna IM, Citalopram Substance abuse hx: reports misuse of stimulants in the past but reports active use of alcohol for over 20 years with longest period of abstinence was 1 year. Medical History: Hx of reported stroke in 2010, traumatic brain injury, Grand mal seizures, diabetes, diabetic neuropathy, alcoholic sirrosis. Allergies: haldol, NTG, Clozaril, Bee stings. Medications: see below.? Surgeries: cataract surgery Legal Hx: none reported Social Hx: lives in [place] with .? He was? 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 Hospital Course Hospital Course During the hospitalization, patient had routine laboratory studies which were within normal limits except for few outliers. Additionally there was a general medical evaluation which was also within normal limits and revealed no new acute processes. At the time of discharge, lethality was denied and psychosis was resolving. Mood and anxiety were well managed. Patient endorsed a plan to avoid all drugs of abuse and follow-up with the aftercare recommendations of the treatment team. Patient was evaluated and deemed to be absent credible lethality, and had achieved the maximum benefit from an inpatient hospitalization, so was discharged. No medication changes were made regarding his psychiatric medications. Patient is due to receive Invega IM 156mg on 08/23/22 at his primary care physicians office. Involuntary Hold Information 96 Hour Hold: 96 Hour Involuntary Admission: No 96 Hour Hold Ending Date: 06/12/22 96 Hour Hold Ending Time: 14:00 Mental Status Exam MSE Comments: This is an obese white male with hospital attire with intermittent eye contact and poor grooming lying in his bed in some significant distress. He appeared to rocking in steady fashion while in bed. Cooperative with exam and mild distress. Speech was normal rate and volume. Mood described as okay. His affect was restricted in range. Thought process:linear, logical Thought content: Patient denied suicidal or homicidal ideation, there were no delusions reported or noted, he denied any auditory or visual hallucinations. Attention and concentration appeared intact and memory was mostly reliable but none were formally tested. The alert and oriented x3. Insight is poor. His impulse control is guarded. His judgment is at baseline. Discharge Data Studies Completed and Pending: Completed Studies During Hospitalization Category Date Time Status CT abdomen pelvis wo con [id number] Stat Cat Scan 08/21/22 03:[address] head wo con* 7 0450 Routine Cat Scan 08/22/22 10:22 Completed US paracentesis a alvaro [US paracen jaclyn abd w [id number]] Ultrasound 08/21/22 09:06 Completed Stat Radiology Impressions Abdomen/Pelvis CT 08/21/22 03:04 IMPRESSION: 1. Large amount of ascites and sequelae of portal hypertension as described above. 2. Hepatic steatosis with interval development of areas of decreased attenuation adjacent to the gallbladder fossa which may represent benign cyst versus focal fatty infiltration however other etiologies including malignancy cannot be excluded. 3. Other chronic/incidental findings as described above. Paracentesis Ultrasound 08/21/22 09:06 IMPRESSION: Uncomplicated ultrasound-guided paracentesis. Removal of [address] 08/22/22 10:22 IMPRESSION: 1. No acute intracranial hemorrhage or edema. 2. Mild cerebral and cerebellar atrophy with small vessel ischemic disease. Similar to the prior study. Laboratory Results WBC 6.6 10^3/uL (4.0- 10.0) 08/21/22 03:00 RBC 4.16 10^6/uL (4.1 -5.3) 08/21/22 03:00 Hgb 13.8 g/dL (11.7-1 6.6) 08/21/22 03:00 Hct 41.3 % (42.0-52.0 ) L 08/21/22 03:00 MCV 99.3 fl (80-94) H 08/21/22 03:00 MCH 33.2 pg (28.0-34. 0) 08/21/22 03:00 MCHC 33.4 g/dL (30.0-3 6.0) 08/21/22 03:00 RDW 13.5 % (12.1-15.1 ) 08/21/22 03:00 Plt Count 187 10^3/cmm (130 -400) 08/21/22 03:00 MPV 10.2 fL (7.4-10.4 ) 08/21/22 03:00 Neut % (Auto) 62.3 % 08/21/22 03:00 Lymph % (Auto) 19.2 % 08/21/22 03:00 [place] % (Auto) 10.0 % 08/21/22 03:00 Eos % (Auto) 6.8 % 08/21/22 03:00 Baso % (Auto) 1.4 % 08/21/22 03:00 Neut # (Auto) 4.13 10^3/uL (1.8 -7.7) 08/21/22 03:00 Lymph # (Auto) 1.3 10^3/uL (0.8- 4.8) 08/21/22 03:00 [place] # (Auto) 0.7 10^3/uL (0.2- 0.9) 08/21/22 03:00 Eos # (Auto) 0.5 10^3/uL (0.0- 0.8) 08/21/22 03:00 Baso # (Auto) 0.1 10^3/uL (0.0- 0.1) 08/21/22 03:00 Nucleated RBC % (a uto) 0 % 08/21/22 03:00 Nucleated RBCs # 0.0 /100WBC 08/21/22 03:00 Sodium 139 mmol/L (136-1 45) 08/21/22 03:00 Potassium 3.6 mmol/L (3.5-5 .1) 08/21/22 03:00 Chloride 105 mmol/L (98-10 7) 08/21/22 03:00 Carbon Dioxide 23 mmol/L (22-29) 08/21/22 03:00 Anion Gap 14.6 (5-19) 08/21/22 03:00 BUN 3 mg/dL (6-20) L 08/21/22 03:00 Creatinine 0.5 mg/dL (0.7-1. 2) L 08/21/22 03:00 GFR Calculation 176.7 mL/min (90- 130) H 08/21/22 03:00 Glucose 114 mg/dL (65-115 ) 08/21/22 03:00 POC Glucose 111 mg/dL (70-110 ) H 08/22/22 12:34 Calculated Osmolal ity 285 mOsm/kg (285- 295) 08/21/22 03:00 Calcium 8.3 mg/dL (8.5-10 .5) L 08/21/22 03:00 Total Bilirubin 0.6 mg/dL (0.15-1 .2) 08/21/22 03:00 AST 45 U/L (0-40) H 08/21/22 03:00 ALT 11 U/L (0-41) 08/21/22 03:00 Alkaline Phosphata se 72 U/L (40-130) 08/21/22 03:00 Ammonia 51 umol/L (16-60) 08/21/22 12:57 Total Protein 6.1 g/dL (6.6-8.7 ) L 08/21/22 03:00 Albumin 2.5 g/dL (3.5-5.2 ) L 08/21/22 03:00 Globulin 3.6 g/dL (1.3-4.6 ) 08/21/22 03:00 TSH 4.08 uIU/mL (0.27 -4.20) 08/21/22 03:00 Urine Color Dark yellow (Yel low) 08/21/22 16:48 Urine Appearance Hazy (CLEAR) A 08/21/22 16:48 Urine pH 6 (5-7) 08/21/22 16:48 Ur Specific Gravit y 1.020 (1.005-1.0 30) 08/21/22 16:48 Urine Protein Trace (Negative) 08/21/22 16:48 Urine Glucose (UA) Norm (Normal) 08/21/22 16:48 Urine Ketones 1+ (Negative) H 08/21/22 16:48 Urine Blood Neg (Negative) 08/21/22 16:48 Urine Nitrate Negative (Negati ve) 08/21/22 16:48 Urine Bilirubin 1+ (Negative) H 08/21/22 16:48 Urine Urobilinogen 4 mg/dL (Negative ) H 08/21/22 16:48 Ur Leukocyte Niru ase Negative (Negati ve) 08/21/22 16:48 Urine RBC 0-4 /hpf (0-2) H 08/21/22 16:48 Urine WBC 0-4 /hpf (0-5) H 08/21/22 16:48 Ur Squamous Epith Cells None /hpf (0-5) 08/21/22 16:48 Amorphous Sediment Trace /hpf 08/21/22 16:48 Urine Bacteria Trace /hpf (NONE) 08/21/22 16:48 Urine Mucus 2+ /hpf 08/21/22 16:48 Salicylates 0.5 mg/dL (3-10) L 08/21/22 03:00 Urine Opiates Scre en Negative ng/mL (N egative) 08/21/22 16:48 Acetaminophen < 5.0 ug/mL (10-3 0) L 08/21/22 03:00 Ur Barbiturates Sc reen Negative ng/mL (N egative) 08/21/22 16:48 Ur Phencyclidine S crn Negative ng/mL (N egative) 08/21/22 16:48 Ur Amphetamines Sc reen Negative ng/mL (N egative) 08/21/22 16:48 U Benzodiazepines Scrn Negative ng/mL (N egative) 08/21/22 16:48 Urine Cocaine Scre en Negative ng/mL (N egative) 08/21/22 16:48 U Marijuana (THC) Screen Negative ng/mL (N egative) 08/21/22 16:48 Ethyl Alcohol 82 mg/dL (0-10) H 08/21/22 03:00 Vitals: Last Vital Signs Temp 97.8 F 08/22/22 14:00 Pulse 120 H 08/22/22 14:00 Resp 22 H 08/22/22 14:00 BP 124/89 08/22/22 14:00 Pulse Ox 91 08/22/22 14:00 O2 Del Method 08/22/22 06:00 Discharge Plan Discharge Patient Disposition: Home Condition: Stable Prescriptions: Continued metformin 500 mg tablet extended release 24 hr 500 mg PO BID 90 Days Qty: 180 0RF gabapentin 400 mg capsule 400 mg PO TID 30 Days Qty: 90 0RF lisinopril 20 mg tablet 20 mg PO DAILY 90 Days Qty: 90 0RF Invega Sustenna 234 mg/1.5 mL syringe 234 mg IM Q30D Qty: 1.5 0RF Rx Instructions: initial starting dose citalopram [Celexa] 20 mg tablet 20 mg PO DAILY Qty: 30 2RF paliperidone [Invega] 6 mg tablet extended release 24 hr 6 mg PO QAM Qty: 14 2RF Rx Instructions: daily as needed 2 weeks before injection is next due Invega Sustenna 156 mg/mL syringe 156 mg IM Q30D Qty: 1 0RF Rx Instructions: To be given 7 days after the initial 234mg dose given levetiracetam 750 mg tablet 750 mg PO BID 30 Days Qty: 60 1RF spironolactone 100 mg tablet 100 mg PO DAILY lactulose 10 gram/15 mL solution 30 ml PO TID PRN (Reason: Constipation) trazodone 50 mg tablet 50 mg PO BEDTIME Discharge Orders: Discharge Order (Routine); Ordered 08/22/22 Ordered By: Simeon Mahan Referrals: Franchesca Escalante PMHNP [Staff Physician] - 08/27/22 9:15 am (Follow up 08/27/22 9:15 am check in.) Jewell Hugo FNP-C [Primary Care Provider] - 08/23/22 1:20 pm (Follow up.) Discharge Diet: Usual diet Discharge Activity: Increase activity as tolerated Patient Instructions: Opioid Safety Activity Restrictions/Additional Instructions: Patient scheduled to receive Invega Sustenna IM 156[facility]. Patient informed that he already has this medication at home. Discharge Attestations NPU Time Spent in Discharge Care*: less than 30 min Specific Discharge Activities: Specific discharge activities: educating patient, discussing with dependency case manager/social workers/dc planners, documenting/other paperwork and evaluating patient/reviewing data Status at Discharge: Cognitive status at discharge: cognitively intact, Behavioral status at discharge: cooperative, Coding [facility] Diagnoses Schizophrenia F20.9 Major depression, recurrent, chronic F33.9 ALC (alcoholic liver cirrhosis) K70.30 Traumatic brain injury S06.9X9A Alcohol dependence F10.20
[2022-08-22 16:24] VITALS: BP 149/74; PULSE 87; RESP 18; TEMP 36.6; O2SAT 94
== END 2022-08-22 16:57 | disposition home or self-care (01) | DRG 885 ==
LOC: ER 06:13 → NP 09:25
PROVIDERS: Emergency Medicine; Hospitalist; Admitting Provider Psychiatry & Neurology Psychiatry; Emergency Provider Family Medicine; PCP Nurse Practitioner Family; Visit Provider Psychiatry & Neurology Psychiatry
DX: F20.9 Schizophrenia, unspecified (principal); F33.9 Major depressive disorder, recurrent, unspecified; R45.851 Suicidal ideations; I69.351 Hemiplegia and hemiparesis following cerebral infarction affecting right dominant side; K70.31 Alcoholic cirrhosis of liver with ascites; F10.20 Alcohol dependence, uncomplicated; Y90.4 Blood alcohol level of 80-99 mg/100 ml; G40.409 Other generalized epilepsy and epileptic syndromes, not intractable, without status epilepticus; R05.3 Chronic cough; R06.02 Shortness of breath; R93.3 Abnormal findings on diagnostic imaging of other parts of digestive tract; E11.65 Type 2 diabetes mellitus with hyperglycemia; E11.40 Type 2 diabetes mellitus with diabetic neuropathy, unspecified; L53.8 Other specified erythematous conditions; W18.11XA Fall from or off toilet without subsequent striking against object, initial encounter; Y92.230 Patient room in hospital as the place of occurrence of the external cause; F17.210 Nicotine dependence, cigarettes, uncomplicated; I10 Essential (primary) hypertension; I25.10 Atherosclerotic heart disease of native coronary artery without angina pectoris; E78.5 Hyperlipidemia, unspecified; Z87.820 Personal history of traumatic brain injury; Z79.84 Long term (current) use of oral hypoglycemic drugs; Z79.899 Other long term (current) drug therapy
CPT/HCPCS: 36415; 36416; 49083; 70450; 71045; 74176; 80053; 80306; 80307; 81001; 82140; 82962; 83690; 84443; 84484; 85025; 93005; 96365; 96372; 97165; 99238; 99285; J1953; J2060; J7030

== ENCOUNTER 2022-09-05 14:55 | Emergency (ER) | payer MEDICARE, MEDICAID, SELFPAY ==
[2022-09-05 14:57] VITALS: BP 121/81; PULSE 107; TEMP 37.3; O2SAT 91; BMI 27.3
--- NOTE | 2022-09-05 15:18 | ED_ITS ---
HPI - Seizure General: Chief Complaint: Seizure Stated Complaint: FALL/ SEIZURE/ HIT HEAD Time Seen by Provider: 09/05/22 15:02 Source: patient Mode of arrival: EMS History of Present Illness: HPI Narrative: 47-year-old male who presents to the emergency room with complaint of seizure. He has a history of Alcoholic liver cirrhosis. She had a history of previous traumatic brain injury and seizure disorder. He has had multiple multiple seizures in the past as well. Patient is awake and alert and oriented at this time. MD complaint: seizure [facility] ED PFSH: Medical History Acne rosacea ALC (alcoholic liver cirrhosis) Alcohol dependence Bipolar disorder Controlled diabetes mellitus with hyperglycemia DM neuropathy, painful Essential (primary) hypertension History of alcohol abuse daily use of hard liquor History of coronary artery disease History of CVA (cerebrovascular accident) 2009 Right side weakness due to a bleed History of memory loss History of schizophrenia Mixed hyperlipidemia Nicotine dependence, cigarettes, uncomplicated Psoriasis Psychiatric care Seizure disorder Traumatic brain injury Surgical History History of cardiac catheterization ~2014 done in [place], reports they discussed possible stent but he declined History of colonoscopy with polypectomy 2016 History of esophagogastroduodenoscopy (EGD) History of eye surgery Family History Other Dementia Diabetes Hypertension Lung disease Psychiatric illness Stroke Denies family history of Chronic kidney disease (CKD) Anesthesia complication Bleeding disorder Cancer Social History Smoking and tobacco status: current every day smoker cigarettes Packs smoked per day: 2.5 Second hand smoke exposure: Yes Alcohol intake: current Alcohol intake frequency: 3 or more drinks per day Alcohol type: hard liquor Adopted: No Caregiver/support person: Yes Lives independently: No Household members: friend(s) and caregiver Housing: Manufactured/Mobile home Marital status: Number of children: 8 service: No Current occupational status: disabled Pets and animals: Yes Current gender identity: Male Physical Exam Const: GENERAL APPEARANCE: cooperative and comfortable ORIENTATION/CONSCIOUSNESS: Yes awake, Yes oriented to person, Yes oriented to place and Yes oriented to time HENMT: COMMON NORMALS: normocephalic, atraumatic and hearing grossly normal bilaterally HEAD & SCALP: normocephalic and atraumatic Resp: COMMON NORMALS: normal respiratory effort, No retractions, No use of accessory muscles and clear to auscultation bilaterally AUSCULTATION: clear to auscultation bilaterally Cardio: COMMON NORMALS: regular rate, regular rhythm and No murmurs present (Cardio) RATE: regular rate RHYTHM: regular rhythm GI: COMMON NORMALS: Soft to palpation and No hepatosplenomegaly present AUSCULTATION: Yes normoactive bowel sounds PALPATION: Yes Soft to palpation, No Tenderness to palpation present (GI), No Guarding due to palpation present (GI) and Yes No hepatosplenomegaly present Extremity: COMMON NORMALS: normal to inspection, capillary refill normal, no clubbing, cyanosis or edema, no calf tenderness and no pedal edema Neuro: SENSORIUM/ORIENTATION: Yes oriented to person, Yes oriented to place and Yes oriented to time Skin: COMMON NORMALS: no rashes or lesions noted GENERAL SKIN EXAM: no rashes or lesions noted Course Vital Signs: Vital signs: Vital Signs Temperature 99.1 F 09/05/22 14:57 Pulse Rate 118 H 09/05/22 17:01 Respiratory Rate 18 09/05/22 17:01 Blood Pressure 159/98 09/05/22 17:01 Pulse Oximetry 93 09/05/22 17:01 Oxygen Delivery Me thod 09/05/22 14:57 MDM - Seizure MDM Narrative Medical decision making narrative: Patient did not appear postictal when he arrived here. There is been some questions about his seizures in the past. I am not finding anything that is suspicious for his seizures at this time it is possible but we certainly did not with witness any activity that is seem appear to be postictal. He has a known history of seizure disorder we will discharge patient home we made arrangements for outpatient paracentesis tomorrow morning he should arrive at 9:00 in the radiology department. Medical Records Attestation: I reviewed the patient's medical records. Lab Data Attestation: I reviewed the patient's lab results. 09/05/22 14:39 09/05/22 14:39 Labs: Radiology Impressions Cervical Spine X-Ray 09/05/22 15:31 IMPRESSION: 1. No acute fracture or malalignment. Minimal degenerative changes. Laboratory Results WBC 6.9 10^3/uL (4.0-10.0) 09/05/22 14:39 RBC 4.72 10^6/uL (4.1-5.3) 09/05/22 14:39 Hgb 15.5 g/dL (11.7-16.6) 09/05/22 14:39 Hct 46.4 % (42.0-52.0) 09/05/22 14:39 MCV 98.3 fl (80-94) H 09/05/22 14:39 MCH 32.8 pg (28.0-34.0) 09/05/22 14:39 MCHC 33.4 g/dL (30.0-36.0) 09/05/22 14:39 RDW 13.4 % (12.1-15.1) 09/05/22 14:39 Plt Count 202 10^3/cmm (130-400) 09/05/22 14:39 MPV 10.0 fL (7.4-10.4) 09/05/22 14:39 Neut % (Auto) 64.7 % 09/05/22 14:39 Lymph % (Auto) 19.7 % 09/05/22 14:39 Cross % (Auto) 6.7 % 09/05/22 14:39 Eos % (Auto) 7.3 % 09/05/22 14:39 Baso % (Auto) 1.3 % 09/05/22 14:39 Neut # (Auto) 4.43 10^3/uL (1.8-7.7) 09/05/22 14:39 Lymph # (Auto) 1.4 10^3/uL (0.8-4.8) 09/05/22 14:39 Cross # (Auto) 0.5 10^3/uL (0.2-0.9) 09/05/22 14:39 Eos # (Auto) 0.5 10^3/uL (0.0-0.8) 09/05/22 14:39 Baso # (Auto) 0.1 10^3/uL (0.0-0.1) 09/05/22 14:39 Nucleated RBC % (auto) 0 % 09/05/22 14:39 Nucleated RBCs # 0.0 /100WBC 09/05/22 14:39 Sodium 139 mmol/L (136-145) 09/05/22 14:39 Potassium 3.4 mmol/L (3.5-5.1) L 09/05/22 14:39 Chloride 102 mmol/L (98-107) 09/05/22 14:39 Carbon Dioxide 25 mmol/L (22-29) 09/05/22 14:39 Anion Gap 15.4 (5-19) 09/05/22 14:39 BUN 4 mg/dL (6-20) L 09/05/22 14:39 Creatinine 0.5 mg/dL (0.7-1.2) L 09/05/22 14:39 GFR Calculation 176.7 mL/min (90-130) H 09/05/22 14:39 Glucose 115 mg/dL (65-115) 09/05/22 14:39 Calculated Osmolality 286 mOsm/kg (285-295) 09/05/22 14:39 Calcium 8.2 mg/dL (8.5-10.5) L 09/05/22 14:39 Magnesium 1.9 mg/dL (1.7-2.3) 09/05/22 14:39 Total Bilirubin 0.8 mg/dL (0.15-1.2) 09/05/22 14:39 AST 73 U/L (0-40) H 09/05/22 14:39 ALT 19 U/L (0-41) 09/05/22 14:39 Alkaline Phosphatase 93 U/L (40-130) 09/05/22 14:39 Ammonia 26 umol/L (16-60) 09/05/22 15:40 Total Protein 7.4 g/dL (6.6-8.7) 09/05/22 14:39 Albumin 2.9 g/dL (3.5-5.2) L 09/05/22 14:39 Globulin 4.5 g/dL (1.3-4.6) 09/05/22 14:39 Urine Color Dark yellow (Yellow) 09/05/22 16:04 Urine Appearance Clear (CLEAR) 09/05/22 16:04 Urine pH 6 (5-7) 09/05/22 16:04 Ur Specific [place] 1.030 (1.005-1.030) 09/05/22 16:04 Urine Protein Trace (Negative) 09/05/22 16:04 Urine Glucose (UA) Norm (Normal) 09/05/22 16:04 Urine Ketones 1+ (Negative) H 09/05/22 16:04 Urine Blood Neg (Negative) 09/05/22 16:04 Urine Nitrate Negative (Negative) 09/05/22 16:04 Urine Bilirubin 1+ (Negative) H 09/05/22 16:04 Urine Urobilinogen 4 mg/dL (Negative) H 09/05/22 16:04 Ur Leukocyte Esterase Negative (Negative) 09/05/22 16:04 Urine RBC 0-4 /hpf (0-2) H 09/05/22 16:04 Urine WBC 0-4 /hpf (0-5) H 09/05/22 16:04 Ur Squamous Epith Cells 0-4 /hpf (0-5) H 09/05/22 16:04 Amorphous Sediment Not Reportable 09/05/22 16:04 Urine Bacteria Trace /hpf (NONE) 09/05/22 16:04 Hyaline Casts 0-4 /lpf H 09/05/22 16:04 Urine Mucus 3+ /hpf 09/05/22 16:04 Discharge Plan Discharge Patient Disposition: Home Clinical Impression: Seizure disorder, Abdominal ascites, Cirrhosis of liver, ALC (alcoholic liver cirrhosis) Condition: Stable Prescriptions: No Action metformin 500 mg tablet extended release 24 hr 500 mg PO BID 90 Days Qty: 180 0RF gabapentin 400 mg capsule 400 mg PO TID 30 Days Qty: 90 0RF lisinopril 20 mg tablet 20 mg PO DAILY 90 Days Qty: 90 0RF Invega Sustenna 234 mg/1.5 mL syringe 234 mg IM Q30D Qty: 1.5 0RF Rx Instructions: initial starting dose citalopram [Celexa] 20 mg tablet 20 mg PO DAILY Qty: 30 2RF paliperidone [Invega] 6 mg tablet extended release 24 hr 6 mg PO QAM Qty: 14 2RF Rx Instructions: daily as needed 2 weeks before injection is next due Invega Sustenna 156 mg/mL syringe 156 mg IM Q30D Qty: 1 0RF Rx Instructions: To be given 7 days after the initial 234mg dose given levetiracetam 750 mg tablet 750 mg PO BID 30 Days Qty: 60 1RF spironolactone 100 mg tablet 100 mg PO DAILY lactulose 10 gram/15 mL solution 30 ml PO TID PRN (Reason: Constipation) trazodone 50 mg tablet 50 mg PO BEDTIME Discharge Orders: Discharge ED (Routine); Ordered 09/05/22 Ordered By: Leobardo Louis Referrals: Jewell Hugo FNP-C [Primary Care Provider] - Discharge Diet: Usual diet Discharge Activity: Increase activity as tolerated Patient Instructions: Opioid Safety, Pain Management Activity Restrictions/Additional Instructions: You were seen today after a seizure. Recommend you continue taking your current medications. Case management has made arrangements for you to have a paracentesis as an outpatient tomorrow you should present to the radiology department 9 AM. Coding Level of Care Code ED [employer] Developer for Carlos Armstrong
[2022-09-05 15:21] LABS: Basophils # 0.1 10^3/uL (0.0-0.1); Basophils % 1.3 %; Eosinophils # 0.5 10^3/uL (0.0-0.8); Eosinophils % 7.3 %; Hematocrit 46.4 % (42.0-52.0); Hemoglobin 15.5 g/dL (11.7-16.6); Lymphocytes # 1.4 10^3/uL (0.8-4.8); Lymphocytes % 19.7 %; Mean Corpuscular HGB Conc 33.4 g/dL (30.0-36.0); Mean Corpuscular Hemoglobin 32.8 pg (28.0-34.0); Mean Corpuscular Volume 98.3 fl (80-94); Monocytes # 0.5 10^3/uL (0.2-0.9); Monocytes % 6.7 %; Neutrophils # 4.43 10^3/uL (1.8-7.7); Neutrophils % 64.7 %; Nucleated Red Blood Cells % 0 %; Platelet Count 202 10^3/cmm (130-400); Red Blood Count 4.72 10^6/uL (4.1-5.3); Red Cell Distribution Width 13.4 % (12.1-15.1); White Blood Count 6.9 10^3/uL (4.0-10.0)
--- NOTE | 2022-09-05 15:31 | XR_ITS ---
WS: [id number] Exam: XR cervical spine 3V* [id number] Date/Time of Exam: 09/05/2022 3:31 PM Reason For Exam: pain No acute fracture or dislocation noted. There is straightening. Normal paraspinal soft tissues. Minim al facet DJD. The odontoid is intact. XR/XR cervical spine 3V* [id number] IMPRESSION: 1. No acute fracture or malalignment. Minimal degenerative changes.
[2022-09-05 15:40] LABS: Alanine Aminotransferase 19 U/L (0-41); Albumin Level 2.9 g/dL (3.5-5.2); Alkaline Phosphatase 93 U/L (40-130); Anion Gap 15.4 (5-19); Aspartate Amino Transferase 73 U/L (0-40); Blood Urea Nitrogen 4 mg/dL (6-20); Calcium 8.2 mg/dL (8.5-10.5); Carbon Dioxide 25 mmol/L (22-29); Chloride 102 mmol/L (98-107); Globulin 4.5 g/dL (1.3-4.6); Glomerular Filtration Rate 176.7 mL/min (90-130); Glucose 115 mg/dL (65-115); Magnesium 1.9 mg/dL (1.7-2.3); Osmolality Calculated 286 mOsm/kg (285-295); Potassium 3.4 mmol/L (3.5-5.1); Sodium 139 mmol/L (136-145); Total Bilirubin 0.8 mg/dL (0.15-1.2); Total Protein 7.4 g/dL (6.6-8.7)
[2022-09-05 16:01] VITALS: BP 121/81; PULSE 109; RESP 18; O2SAT 91
[2022-09-05 16:06] LABS: Ammonia 26 umol/L (16-60)
[2022-09-05 16:26] LABS: Glucose Urine UA Norm (Normal); Ketones Urine 1+ (Negative); Protein Urine Trace (Negative); Urine Appearance Clear (CLEAR); Urine Color Dark yellow (Yellow); pH Urine 6 (5-7)
[2022-09-05 16:27] LABS: Add Urine Microscopic? YES; Bilirubin Urine 1+ (Negative); Blood Urine Neg (Negative); Leukocyte Esterase Urine Negative (Negative); Nitrate Urine Negative (Negative); Urobilinogen Urine 4 mg/dL (Negative)
[2022-09-05 16:28] LABS: Add Urine Culture? No; Bacteria Urine TRACE /hpf; Hyaline Casts Urine 0-4 /lpf; Mucus Urine 3+ /hpf; RBC Urine 0-4 /hpf (0-2); Squamous Epithelial Cell Urine 0-4 /hpf (0-5); WBC Urine 0-4 /hpf (0-5)
[2022-09-05 17:01] VITALS: BP 159/98; PULSE 118; RESP 18; O2SAT 93
--- NOTE | 2022-09-07 11:32 | DCPLANNER ---
public policy manager had message to confirm that patient had a paracenthecis completed, case repairer called GI lab and was told that patient did attend to have that completed
== END 2022-09-05 17:03 | disposition home or self-care (01) ==
PROVIDERS: Emergency Provider Family Medicine; PCP Nurse Practitioner Family
DX: G40.909 Epilepsy, unspecified, not intractable, without status epilepticus (principal); K70.31 Alcoholic cirrhosis of liver with ascites; Z79.84 Long term (current) use of oral hypoglycemic drugs; F17.210 Nicotine dependence, cigarettes, uncomplicated; E11.9 Type 2 diabetes mellitus without complications; I10 Essential (primary) hypertension; I25.10 Atherosclerotic heart disease of native coronary artery without angina pectoris; Z86.73 Personal history of transient ischemic attack (TIA), and cerebral infarction without residual deficits; E78.2 Mixed hyperlipidemia; Z87.820 Personal history of traumatic brain injury
CPT/HCPCS: 72040; 80053; 81001; 82140; 83735; 85025; 99284

== ENCOUNTER 2022-09-07 10:04 | Day surgery (SDC) | payer MEDICARE, MEDICAID, SELFPAY ==
[2022-09-06 09:35] VITALS: BMI 31.9
--- NOTE | 2022-09-07 10:07 | US_ITS ---
WS: [id number] ULTRASOUND-GUIDED REVIEWED PARACENTESIS Procedure, risks, and complications have been explained to the patient. Consent is obtained. Utilizing aseptic technique and 1% buffered lidocaine, a small dermatome was made through which a 5 F rench Yueh catheter was inserted. Approximately 6000 ml of clear peritoneal fluid was obtained witho ut difficulty. No complications encountered. US/US paracentesis abd w [id number] IMPRESSION: Uncomplicated paracentesis yielding 6000 ml of peritoneal fluid.
[2022-09-07 10:08] VITALS: BP 148/113; PULSE 131; RESP 22; TEMP 36.9; O2SAT 92
[2022-09-07 10:41] VITALS: BP 147/111; PULSE 128; RESP 22; O2SAT 92
[2022-09-07 11:28] VITALS: BP 153/105; PULSE 117; RESP 22; O2SAT 93
[2022-09-07 11:59] VITALS: BP 146/97; PULSE 113; RESP 22; O2SAT 95
== END 2022-09-07 12:05 | disposition home or self-care (01) ==
LOC: GILAB 10:05
PROVIDERS: Radiology Diagnostic Radiology; PCP Nurse Practitioner Family; Visit Provider Family Medicine
PROC: (CPT 49082; principal; 2022-09-07 11:00)
DX: R18.8 Other ascites (principal)
CPT/HCPCS: 49083

== ENCOUNTER 2022-09-26 12:06 | Emergency (ER) | payer MEDICARE, MEDICAID, SELFPAY ==
[2022-09-26 12:08] VITALS: BP 140/82; PULSE 119; RESP 20; O2SAT 95
[2022-09-26 12:58] LABS: Basophils # 0.1 10^3/uL (0.0-0.1); Basophils % 1.1 %; Eosinophils # 0.1 10^3/uL (0.0-0.8); Eosinophils % 1.3 %; Hematocrit 42.2 % (42.0-52.0); Hemoglobin 14.2 g/dL (11.7-16.6); Lymphocytes # 0.5 10^3/uL (0.8-4.8); Lymphocytes % 9.7 %; Mean Corpuscular HGB Conc 33.6 g/dL (30.0-36.0); Mean Corpuscular Hemoglobin 33.6 pg (28.0-34.0); Mean Corpuscular Volume 99.8 fl (80-94); Mean Platelet Volume 10.4 fL (7.4-10.4); Monocytes # 0.6 10^3/uL (0.2-0.9); Monocytes % 11.7 %; Neutrophils # 4.14 10^3/uL (1.8-7.7); Neutrophils % 75.8 %; Nucleated Red Blood Cells % 0 %; Platelet Count 124 10^3/cmm (130-400); Red Blood Count 4.23 10^6/uL (4.1-5.3); Red Cell Distribution Width 14.6 % (12.1-15.1); White Blood Count 5.5 10^3/uL (4.0-10.0)
[2022-09-26 13:10] LABS: INR 1.24 (0.8-1.2); Partial Thromboplastin Time 34.7 SECONDS (23.9-36.7)
[2022-09-26 13:20] LABS: Alanine Aminotransferase 41 U/L (0-41); Albumin Level 2.7 g/dL (3.5-5.2); Alkaline Phosphatase 125 U/L (40-130); Anion Gap 14.1 (5-19); Aspartate Amino Transferase 189 U/L (0-40); Blood Urea Nitrogen 6 mg/dL (6-20); Calcium 7.7 mg/dL (8.5-10.5); Carbon Dioxide 24 mmol/L (22-29); Chloride 98 mmol/L (98-107); Globulin 4.5 g/dL (1.3-4.6); Glomerular Filtration Rate 318.7 mL/min (90-130); Glucose 104 mg/dL (65-115); Osmolality Calculated 272 mOsm/kg (285-295); Potassium 4.1 mmol/L (3.5-5.1); Sodium 132 mmol/L (136-145); Total Protein 7.2 g/dL (6.6-8.7)
--- NOTE | 2022-09-26 13:21 | ED_ITS ---
HPI - General Adult General: Chief complaint: Abdominal Pain Stated complaint: Chest Pain/SOB Time Seen by Provider: 09/26/22 12:17 History of Present Illness: Patient with a history of alcoholic liver cirrhosis, alcohol abuse, schizophrenia, bipolar, seizures, TBI, who continues to use alcohol and tobacco, who normally receives twice a week scheduled paracentesis presents the emergency department with abdominal distention and shortness of breath for the last 3 days, requiring 4 L nasal cannula oxygen. Patient is not normally on oxygen. He states that he has not had a paracentesis in 2 weeks due to his doctor's office not calling him. He denies any fevers, chills, chest pain, nausea, vomiting. No other modifying factors, no other associated symptoms. Review of Systems General: Reports: 10 or more systems reviewed and unremarkable except in HPI and below PFSH ED PFSH: Medical History Acne rosacea ALC (alcoholic liver cirrhosis) Alcohol dependence Bipolar disorder Controlled diabetes mellitus with hyperglycemia DM neuropathy, painful Essential (primary) hypertension History of alcohol abuse daily use of hard liquor History of coronary artery disease History of CVA (cerebrovascular accident) 2009 Right side weakness due to a bleed History of memory loss History of schizophrenia Mixed hyperlipidemia Nicotine dependence, cigarettes, uncomplicated Psoriasis Psychiatric care Seizure disorder Traumatic brain injury Surgical History History of cardiac catheterization ~2014 done in [place], reports they discussed possible stent but he declined History of colonoscopy with polypectomy 2015 History of esophagogastroduodenoscopy (EGD) History of eye surgery Family History Other Dementia Diabetes Hypertension Lung disease Psychiatric illness Stroke Denies family history of Chronic kidney disease (CKD) Anesthesia complication Bleeding disorder Cancer Social History Smoking and tobacco status: current every day smoker cigarettes Packs smoked per day: 2.5 Second hand smoke exposure: Yes Alcohol intake: current Alcohol intake frequency: 3 or more drinks per day Alcohol type: hard liquor Adopted: No Caregiver/support person: Yes Lives independently: No Household members: friend(s) and caregiver Housing: Manufactured/Mobile home Marital status: Number of children: 8 service: No Current occupational status: disabled Pets and animals: Yes Current gender identity: Male Physical Exam Const: COMMON NORMALS: patient oriented x3 GENERAL APPEARANCE: cooperative, disheveled, ill appearing (Chronically) and appears older than stated age NUTRITIONAL APPEARANCE: obese ORIENTATION/CONSCIOUSNESS: Yes awake, Yes oriented to person, Yes oriented to place and Yes oriented to time HENMT: COMMON NORMALS: normocephalic, atraumatic, hearing grossly normal bilaterally, external ears normal and Normal external nose present HEAD & SCALP: normocephalic and atraumatic FACE & SINUS: normal facial exam NOSE: Normal external nose present EXTERNAL EAR: Yes external ears normal MOUTH: Normal oral and palatal mucosa present THROAT: posterior oropharynx normal Eye: COMMON NORMALS: Equal, round and reactive pupils present and EOMs intact bilaterally PUPIL: Yes Equal, round and reactive pupils present Neck/C-Spine: COMMON NORMALS: supple GENERAL: Yes normal visual inspection CERVICAL SPINE: No Cervical spine tenderness and No step off deformity Chest: COMMONS NORMALS: normal inspection of the chest Resp: COMMON NORMALS: No retractions, No use of accessory muscles and clear to auscultation bilaterally EFFORT & INSPECTION: Yes respiratory distress and Yes labored AUSCULTATION: clear to auscultation bilaterally Cardio: COMMON NORMALS: regular rhythm and Peripheral pulses 2+ throughout RATE: tachycardic RHYTHM: regular rhythm PERIPHERAL PULSES: Peripheral pulses 2+ throughout GI: COMMON NORMALS: Normal to inspection, nondistended, normoactive bowel sounds present and non-tender INSPECTION: Yes Anasarca, Yes abdominal distension, Yes striae and Yes Fluid wave present PALPATION: Yes Hepato splenomegaly present PERCUSSION: Fluid wave present : COMMON NORMALS: Yes no CVA tenderness BLADDER/KIDNEY EXAM: Yes no CVA tenderness Back/Pelvis: COMMON NORMALS: no CVA tenderness and thoracic and lumbar spine normal to inspection THORACIC SPINE/UPPER BACK: Yes normal to inspection LUMBAR SPINE/LOWER BACK: Yes normal to inspection Extremity: COMMON NORMALS: normal to inspection and full ROM GENERAL: No clubbing and No cyanosis Neuro: COMMON NORMALS: patient oriented x3, moves all extremities, no focal motor deficits and no sensory deficits noted SENSORIUM/ORIENTATION: Yes oriented to person, Yes oriented to place and Yes oriented to time Psych: COMMON NORMALS: mental status grossly normal, Normal thought process present, cooperative and activity/motor behavior normal ATTITUDE: Yes calm THOUGHT PROCESS: Normal thought process present Skin: COMMON NORMALS: no rashes or lesions noted GENERAL SKIN EXAM: no rashes or lesions noted Procedures Paracentesis Time Out Performed: Yes Indication: Ascites Procedure: therapeutic paracentesis Location: RLQ Local Anesthetic: lidocaine 1% Amount of anesthesia used (mL): 3 Bedside Ultrasound Used: yes, Ascites confirmed and location marked Preparation: sterile prep and drape (11 blade used to make grecia) Amount of fluid obtained (mL): 6,000 Fluid: clear Post Procedure Exam: awake, alert, normal BP, normal HR and normal SpO2 Patient Tolerated Procedure: well Complications: none Course Reevaluation(s): Reevaluation #1: 6 L of clear straw fluid taken off, will give small dose of albumin as patient is high risk for reaccumulation and had more than 5 L taken off Time: 16:00 Reevaluation #2: Patient receiving albumin, no longer tachypneic, tachycardia and oxygen requirement have improved, patient does continue to remain slightly tachycardic, based on prior records it appears that he is always slightly tachycardic. Once he is finished his albumin anticipate that he can safely be discharged home and follow-up with his primary care doctor. Patient advised to follow-up as directed, return to the emergency department with any new or worsening symptoms or if unable to follow-up as directed or tolerate p.o. intake. Patient verbalized understanding and agreement with this plan, all questions answered. Time: 17:10 Vital Signs: Vital signs: Vital Signs Pulse Rate 112 H 09/26/22 16:26 Respiratory Rate 18 09/26/22 16:26 Blood Pressure 151/104 09/26/22 16:26 Pulse Oximetry 94 09/26/22 16:26 Oxygen Delivery Me thod Room Air 09/26/22 16:26 Oxygen Flow Rate 4 09/26/22 12:08 MDM - General Adult Medical Decision Making Given patient's severe shortness of breath and tachycardia as well as new oxygen requirement we will perform a therapeutic paracentesis. Discussed risks and benefits of the procedure with the patient, he agrees to have the procedure perf ormed, consent form has been signed. Lab Data 09/26/22 12:43 09/26/22 12:43 Laboratory Results WBC 5.5 10^3/uL (4.0-10.0) 09/26/22 12:43 RBC 4.23 10^6/uL (4.1-5.3) 09/26/22 12:43 Hgb 14.2 g/dL (11.7-16.6) 09/26/22 12:43 Hct 42.2 % (42.0-52.0) 09/26/22 12:43 MCV 99.8 fl (80-94) H 09/26/22 12:43 MCH 33.6 pg (28.0-34.0) 09/26/22 12:43 MCHC 33.6 g/dL (30.0-36.0) 09/26/22 12:43 RDW 14.6 % (12.1-15.1) 09/26/22 12:43 Plt Count 124 10^3/cmm (130-400) L 09/26/22 12:43 MPV 10.4 fL (7.4-10.4) 09/26/22 12:43 Neut % (Auto) 75.8 % 09/26/22 12:43 Lymph % (Auto) 9.7 % 09/26/22 12:43 [place] % (Auto) 11.7 % 09/26/22 12:43 Eos % (Auto) 1.3 % 09/26/22 12:43 Baso % (Auto) 1.1 % 09/26/22 12:43 Neut # (Auto) 4.14 10^3/uL (1.8-7.7) 09/26/22 12:43 Lymph # (Auto) 0.5 10^3/uL (0.8-4.8) L 09/26/22 12:43 [place] # (Auto) 0.6 10^3/uL (0.2-0.9) 09/26/22 12:43 Eos # (Auto) 0.1 10^3/uL (0.0-0.8) 09/26/22 12:43 Baso # (Auto) 0.1 10^3/uL (0.0-0.1) 09/26/22 12:43 Nucleated RBC % (auto) 0 % 09/26/22 12:43 Nucleated RBCs # 0.0 /100WBC 09/26/22 12:43 PT 16.00 SECONDS (12.1-14.9) H 09/26/22 12:43 INR 1.24 (0.8-1.2) H 09/26/22 12:43 APTT 34.7 SECONDS (23.9-36.7) 09/26/22 12:43 Sodium 132 mmol/L (136-145) L 09/26/22 12:43 Potassium 4.1 mmol/L (3.5-5.1) 09/26/22 12:43 Chloride 98 mmol/L (98-107) 09/26/22 12:43 Carbon Dioxide 24 mmol/L (22-29) 09/26/22 12:43 Anion Gap 14.1 (5-19) 09/26/22 12:43 BUN 6 mg/dL (6-20) 09/26/22 12:43 Creatinine 0.3 mg/dL (0.7-1.2) L 09/26/22 12:43 GFR Calculation 318.7 mL/min (90-130) H 09/26/22 12:43 Glucose 104 mg/dL (65-115) 09/26/22 12:43 Calculated Osmolality 272 mOsm/kg (285-295) L 09/26/22 12:43 Calcium 7.7 mg/dL (8.5-10.5) L 09/26/22 12:43 Total Bilirubin 3.0 mg/dL (0.15-1.2) H 09/26/22 12:43 AST 189 U/L (0-40) H 09/26/22 12:43 ALT 41 U/L (0-41) 09/26/22 12:43 Alkaline Phosphatase 125 U/L (40-130) 09/26/22 12:43 Total Protein 7.2 g/dL (6.6-8.7) 09/26/22 12:43 Albumin 2.7 g/dL (3.5-5.2) L 09/26/22 12:43 Globulin 4.5 g/dL (1.3-4.6) 09/26/22 12:43 Discharge Plan Discharge Patient Disposition: Home Clinical Impression: Abdominal ascites Qualifiers: Ascites type: due to alcoholic cirrhosis Qualified Code(s): K70.31 - Alcoholic cirrhosis of liver with ascites Cirrhosis of liver Qualifiers: Hepatic cirrhosis type: alcoholic cirrhosis Ascites presence: with ascites Qualified Code(s): K70.31 - Alcoholic cirrhosis of liver with ascites Condition: Stable Prescriptions: No Action metformin 500 mg tablet extended release 24 hr 500 mg PO BID 90 Days Qty: 180 0RF gabapentin 400 mg capsule 400 mg PO TID 30 Days Qty: 90 0RF lisinopril 20 mg tablet 20 mg PO DAILY 90 Days Qty: 90 0RF Invega Sustenna 234 mg/1.5 mL syringe 234 mg IM Q30D Qty: 1.5 0RF Rx Instructions: initial starting dose citalopram [Celexa] 20 mg tablet 20 mg PO DAILY Qty: 30 2RF paliperidone [Invega] 6 mg tablet extended release 24 hr 6 mg PO QAM Qty: 14 2RF Rx Instructions: daily as needed 2 weeks before injection is next due levetiracetam 750 mg tablet 750 mg PO BID 30 Days Qty: 60 1RF spironolactone 100 mg tablet 100 mg PO DAILY lactulose 10 gram/15 mL solution 30 ml PO TID PRN (Reason: Constipation) trazodone 50 mg tablet 50 mg PO BEDTIME Discharge Orders: Discharge ED (Routine); Ordered 09/26/22 Ordered By: Santosh Fishman Referrals: Jewell Hugo FNP-C [Primary Care Provider] - 1 week Patient Instructions: Cirrhosis of the Liver (ED), Abuse of Alcohol (ED), Ascites (ED) Coding Level of Care Code ED Digital Marketing Associate for Carlos Armstrong
[2022-09-26] MEDS: albumin 12.5 GM/50 ML VIAL IV (16:25)
[2022-09-26 16:26] VITALS: BP 151/104; PULSE 112; RESP 18; O2SAT 94
[2022-09-26 18:08] VITALS: BP 168/90; PULSE 78; RESP 16; O2SAT 96
== END 2022-09-26 18:10 | disposition home or self-care (01) ==
PROVIDERS: Emergency Provider Emergency Medicine; PCP Nurse Practitioner Family
DX: K70.31 Alcoholic cirrhosis of liver with ascites (principal); F17.210 Nicotine dependence, cigarettes, uncomplicated; E11.9 Type 2 diabetes mellitus without complications; I10 Essential (primary) hypertension; I25.10 Atherosclerotic heart disease of native coronary artery without angina pectoris; Z86.73 Personal history of transient ischemic attack (TIA), and cerebral infarction without residual deficits; E78.49 Other hyperlipidemia; Z79.84 Long term (current) use of oral hypoglycemic drugs
CPT/HCPCS: 36415; 49082; 80053; 85025; 85610; 85730; 99284; P9047

== ENCOUNTER 2022-09-27 01:58 | Emergency (ER) | payer MEDICARE, MEDICAID, SELFPAY ==
[2022-09-27] VITALS (7 sets, daily range): BP systolic 120–152; BP diastolic 73–94; PULSE 99–121; RESP 19–29; TEMP 36.8; O2SAT 90–97; BMI 28.8
--- NOTE | 2022-09-27 02:00 | XRR_ITS ---
PROCEDURE INFORMATION: Exam: XR Chest Exam date and time: 09/27/2022 2:20 AM Age: 47 years old Clinical indication: Shortness of breath; Patient HX: Smoker; Additional info: SOB TECHNIQUE: Imaging protocol: Radiologic exam of the chest. Views: 1 view. COMPARISON: CR XR chest 1V portable [id number] 08/20/2022 3:26 PM FINDINGS: Lungs: Nonspecific prominence of the interstitial markings which may be secondary to mild edema versus atypical viral infection. Pleural spaces: Unremarkable. No pleural effusion. No pneumothorax. Heart/Mediastinum: Unremarkable. No cardiomegaly. Bones/joints: Unremarkable. XR/XR chest 1V portable [id number] IMPRESSION: Nonspecific prominence of the interstitial markings which may be secondary to mild edema versus atypical viral infection.
--- NOTE | 2022-09-27 02:05 | ED_ITS ---
HPI - SOB/Dyspnea General: Chief Complaint: Shortness of Breath/Dyspnea Stated Complaint: SOB Time Seen by Provider: 09/27/22 02:05 Source: patient and EMS Mode of arrival: EMS Limitations: no limitations History of Present Illness: HPI Narrative: 47-year-old male was recently diagnosed with cirrhosis for ascites he states he also been having shortness of breath throughout the is able to get home his shortness of breath did worsen he is currently on 2 L of oxygen here he denies any chest pain denies any cough or fever. Associated symptoms: Deny abdominal pain, chest pain, fever(s), nausea or vomiting Review of Systems Const: Denies: fever(s), chills, body aches or change in appetite Eyes: Denies: eye discomfort ENMT: Denies: throat pain or dental pain Card: Denies: chest pain Resp: Reports: dyspnea and non-productive cough GI: Denies: abdominal pain, nausea, vomiting or diarrhea : Denies: dysuria Musc: Denies: neck pain or back pain Skin/Breast: Denies: rash Neuro: Denies: headache(s) PFSH ED PFSH: Medical History Acne rosacea ALC (alcoholic liver cirrhosis) Alcohol dependence Bipolar disorder Controlled diabetes mellitus with hyperglycemia DM neuropathy, painful Essential (primary) hypertension History of alcohol abuse daily use of hard liquor History of coronary artery disease History of CVA (cerebrovascular accident) 2009 Right side weakness due to a bleed History of memory loss History of schizophrenia Mixed hyperlipidemia Nicotine dependence, cigarettes, uncomplicated Psoriasis Psychiatric care Seizure disorder Traumatic brain injury Surgical History History of cardiac catheterization ~2014 done in [place], reports they discussed possible stent but he declined History of colonoscopy with polypectomy 2016 History of esophagogastroduodenoscopy (EGD) History of eye surgery Family History Other Dementia Diabetes Hypertension Lung disease Psychiatric illness Stroke Denies family history of Chronic kidney disease (CKD) Anesthesia complication Bleeding disorder Cancer Social History Smoking and tobacco status: current every day smoker cigarettes Packs smoked per day: 2.5 Second hand smoke exposure: Yes Alcohol intake: current Alcohol intake frequency: 3 or more drinks per day Alcohol type: hard liquor Adopted: No Caregiver/support person: Yes Lives independently: No Household members: friend(s) and caregiver Housing: Manufactured/Mobile home Marital status: Number of children: 8 service: No Current occupational status: disabled Pets and animals: Yes Current gender identity: Male Physical Exam Const: COMMON NORMALS: patient oriented x3 HENMT: COMMON NORMALS: normocephalic and atraumatic HEAD & SCALP: normocephalic and atraumatic Eye: COMMON NORMALS: conjunctivae normal CONJUNCTIVA: Yes conjunctivae normal Neck/C-Spine: COMMON NORMALS: full ROM and supple Chest: COMMONS NORMALS: normal inspection of the chest and normal palpation of entire chest wall Resp: COMMON NORMALS: No retractions and No use of accessory muscles AUSCULTATION: rales Cardio: COMMON NORMALS: regular rate, regular rhythm and No murmurs present (Cardio) RATE: regular rate RHYTHM: regular rhythm GI: COMMON NORMALS: Normal to inspection, nondistended, normoactive bowel sounds present, Soft to palpation, non-tender and no masses PALPATION: Yes Soft to palpation Extremity: COMMON NORMALS: normal to inspection and full ROM Neuro: COMMON NORMALS: patient oriented x3, moves all extremities and no focal motor deficits Psych: COMMON NORMALS: mental status grossly normal, Normal thought process present and cooperative THOUGHT PROCESS: Normal thought process present Skin: COMMON NORMALS: no rashes or lesions noted and no wounds GENERAL SKIN EXAM: no rashes or lesions noted Course Vital Signs: Vital signs: Vital Signs Temperature 98.3 F 09/27/22 01:59 Pulse Rate 107 H 09/27/22 05:36 Respiratory Rate 19 H 09/27/22 05:36 Blood Pressure 124/94 09/27/22 05:36 Pulse Oximetry 90 09/27/22 05:36 Oxygen Delivery Me thod Nasal Cannula 09/27/22 02:28 Oxygen Flow Rate 4 09/27/22 02:28 MDM - SOB/Dyspnea Medical Decision Making Patient presents here with dyspnea his pulse ox here has been in the 90s I had him ambulate the halls and he stayed in the 90s while he ambulated. Does have elevated bilirubin consistent with his cirrhosis he had a paracentesis earlier today he felt improved he is stable for discharge he is to follow-up with PCP and return if worsening he has no abdominal pain no abdominal tenderness. Lab Data 09/27/22 02:28 09/27/22 02:28 Labs/Radiology: Radiology Impressions Chest X-Ray 09/27/22 02:00 IMPRESSION: Nonspecific prominence of the interstitial markings which may be secondary to mild edema versus atypical viral infection. Chest CTA 09/27/22 03:23 IMPRESSION: 1. No pulmonary embolism. 2. No aortic dissection. 3. Fatty infiltration of the liver. 4. Cirrhosis with portal venous hypertension. Laboratory Results WBC 6.9 10^3/uL (4.0-10.0) 09/27/22 02:28 RBC 3.89 10^6/uL (4.1-5.3) L 09/27/22 02:28 Hgb 12.8 g/dL (11.7-16.6) 09/27/22 02:28 Hct 38.4 % (42.0-52.0) L 09/27/22 02:28 MCV 98.7 fl (80-94) H 09/27/22 02:28 MCH 32.9 pg (28.0-34.0) 09/27/22 02:28 MCHC 33.3 g/dL (30.0-36.0) 09/27/22 02:28 RDW 14.5 % (12.1-15.1) 09/27/22 02:28 Plt Count 122 10^3/cmm (130-400) L 09/27/22 02:28 MPV 10.3 fL (7.4-10.4) 09/27/22 02:28 Neut % (Auto) 75.9 % 09/27/22 02:28 Lymph % (Auto) 8.1 % 09/27/22 02:28 [place] % (Auto) 13.0 % 09/27/22 02:28 Eos % (Auto) 2.0 % 09/27/22 02:28 Baso % (Auto) 0.9 % 09/27/22 02:28 Neut # (Auto) 5.25 10^3/uL (1.8-7.7) 09/27/22 02:28 Lymph # (Auto) 0.6 10^3/uL (0.8-4.8) L 09/27/22 02:28 [place] # (Auto) 0.9 10^3/uL (0.2-0.9) 09/27/22 02:28 Eos # (Auto) 0.1 10^3/uL (0.0-0.8) 09/27/22 02:28 Baso # (Auto) 0.1 10^3/uL (0.0-0.1) 09/27/22 02:28 Nucleated RBC % (auto) 0 % 09/27/22 02:28 Nucleated RBCs # 0.0 /100WBC 09/27/22 02:28 Sodium 132 mmol/L (136-145) L 09/27/22 02:28 Potassium 4.0 mmol/L (3.5-5.1) 09/27/22 02:28 Chloride 98 mmol/L (98-107) 09/27/22 02:28 Carbon Dioxide 24 mmol/L (22-29) 09/27/22 02:28 Anion Gap 14.0 (5-19) 09/27/22 02:28 BUN 6 mg/dL (6-20) 09/27/22 02:28 Creatinine 0.4 mg/dL (0.7-1.2) L 09/27/22 02:28 GFR Calculation 228.6 mL/min (90-130) H 09/27/22 02:28 Glucose 119 mg/dL (65-115) H 09/27/22 02:28 Calculated Osmolality 273 mOsm/kg (285-295) L 09/27/22 02:28 Calcium 7.7 mg/dL (8.5-10.5) L 09/27/22 02:28 Total Bilirubin 4.4 mg/dL (0.15-1.2) H 09/27/22 02:28 AST 148 U/L (0-40) H 09/27/22 02:28 ALT 38 U/L (0-41) 09/27/22 02:28 Alkaline Phosphatase 107 U/L (40-130) 09/27/22 02:28 Troponin T Baseline 13 ng/L (0-15) 09/27/22 02:28 Troponin T 120 Minute 12.61 ng/L (0-15) 09/27/22 04:27 Delta Troponin T -0.39 ABS# (0-10) L 09/27/22 04:27 NT-Pro-B Natriuret Pep 76 pg/mL (0-125) 09/27/22 02:28 Total Protein 6.3 g/dL (6.6-8.7) L 09/27/22 02:28 Albumin 2.6 g/dL (3.5-5.2) L 09/27/22 02:28 Globulin 3.7 g/dL (1.3-4.6) 09/27/22 02:28 EKG Data EKG 1: I personally reviewed and interpreted this EKG as follows: EKG Interpretation Date: 09/27/22 EKG interpretation time: 02:09 Interpretation: sinus tach hr [address] or t wave abnormalities qrs 82 qtc 400 EKG 2: I personally reviewed and interpreted this EKG as follows: EKG Interpretation Date: 09/27/22 EKG interpretation time: 04:25 Interpretation: sinus tach hr [address] or t wave abnormalities qrs 81 qtc 403 Discharge Plan Discharge Patient Disposition: Home Clinical Impression: Cirrhosis of liver, Dyspnea Condition: Stable Prescriptions: No Action metformin 500 mg tablet extended release 24 hr 500 mg PO BID 90 Days Qty: 180 0RF gabapentin 400 mg capsule 400 mg PO TID 30 Days Qty: 90 0RF lisinopril 20 mg tablet 20 mg PO DAILY 90 Days Qty: 90 0RF Invega Sustenna 234 mg/1.5 mL syringe 234 mg IM Q30D Qty: 1.5 0RF Rx Instructions: initial starting dose citalopram [Celexa] 20 mg tablet 20 mg PO DAILY Qty: 30 2RF paliperidone [Invega] 6 mg tablet extended release 24 hr 6 mg PO QAM Qty: 14 2RF Rx Instructions: daily as needed 2 weeks before injection is next due levetiracetam 750 mg tablet 750 mg PO BID 30 Days Qty: 60 1RF spironolactone 100 mg tablet 100 mg PO DAILY lactulose 10 gram/15 mL solution 30 ml PO TID PRN (Reason: Constipation) trazodone 50 mg tablet 50 mg PO BEDTIME Discharge Orders: Discharge ED (Routine); Ordered 09/27/22 Ordered By: Anson Layne Referrals: Jewell Hugo FNP-C [Primary Care Provider] - Discharge Diet: Advance as tolerated Discharge Activity: Resume usual activity Patient Instructions: Cirrhosis of the Liver (ED), Dyspnea (ED) Coding Level of Care Code ED Rx Specialist for Carlos Armstrong
--- NOTE | 2022-09-27 02:05 | PC.NURSE ---
PATIENT STATES HE FEELS BETTER ON O2. PATIENT PLACED ON 2 L NC. PROVIDER NOTIFIED.
--- NOTE | 2022-09-27 02:09 | ECG_ITS ---
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 Measurements Intervals [place] Rate: 117 P: 55 ND: 136 QRS: -29 QRSD: 82 T: -5 QT: 331 QTc: 462 Interpretive Statements SINUS TACHYCARDIA POSSIBLE ANTERIOR MYOCARDIAL INFARCTION , PROBABLY OLD [30 ms Q WAVE IN V3/V4, OR R < 0.2 mV IN V4] INFERIOR MYOCARDIAL INFARCTION , PROBABLY OLD [40+ ms Q WAVE AND/OR ST/T ABNORMALITY IN II/aVF] Diffuse nonspecific T wave changes Compared to ECG 08/21/2022 03:45:22 Myocardial infarct finding now present Ectopic atrial rhythm no longer present Electronically Signed On 09-28-2022 1:31:47 CDT by Rex Gilbert M.D. [email or web address]/[id number]
[2022-09-27] MEDS: albuterol 2.5 mg/3 mL Neb INHALATION (02:28)
[2022-09-27] MEDS: ipratropium 0.5 mg/2.5 mL Neb INHALATION (02:28)
[2022-09-27 02:39] LABS: Basophils # 0.1 10^3/uL (0.0-0.1); Basophils % 0.9 %; Eosinophils # 0.1 10^3/uL (0.0-0.8); Hematocrit 38.4 % (42.0-52.0); Hemoglobin 12.8 g/dL (11.7-16.6); Lymphocytes # 0.6 10^3/uL (0.8-4.8); Lymphocytes % 8.1 %; Mean Corpuscular HGB Conc 33.3 g/dL (30.0-36.0); Mean Corpuscular Hemoglobin 32.9 pg (28.0-34.0); Mean Corpuscular Volume 98.7 fl (80-94); Mean Platelet Volume 10.3 fL (7.4-10.4); Monocytes # 0.9 10^3/uL (0.2-0.9); Neutrophils # 5.25 10^3/uL (1.8-7.7); Neutrophils % 75.9 %; Nucleated Red Blood Cells % 0 %; Platelet Count 122 10^3/cmm (130-400); Red Blood Count 3.89 10^6/uL (4.1-5.3); Red Cell Distribution Width 14.5 % (12.1-15.1); White Blood Count 6.9 10^3/uL (4.0-10.0)
[2022-09-27 03:03] LABS: Troponin(5th) Baseline 13 ng/L (0-15)
[2022-09-27 03:10] LABS: Alanine Aminotransferase 38 U/L (0-41); Albumin Level 2.6 g/dL (3.5-5.2); Alkaline Phosphatase 107 U/L (40-130); Aspartate Amino Transferase 148 U/L (0-40); Blood Urea Nitrogen 6 mg/dL (6-20); Calcium 7.7 mg/dL (8.5-10.5); Carbon Dioxide 24 mmol/L (22-29); Chloride 98 mmol/L (98-107); Globulin 3.7 g/dL (1.3-4.6); Glomerular Filtration Rate 228.6 mL/min (90-130); Glucose 119 mg/dL (65-115); NT Pro B Type Natriuretic Pept 76 pg/mL (0-125); Osmolality Calculated 273 mOsm/kg (285-295); Sodium 132 mmol/L (136-145); Total Bilirubin 4.4 mg/dL (0.15-1.2); Total Protein 6.3 g/dL (6.6-8.7)
--- NOTE | 2022-09-27 03:23 | CTR_ITS ---
PROCEDURE INFORMATION: Exam: CTA Chest With Contrast Exam date and time: 09/27/2022 3:39 AM Age: 47 years old Clinical indication: Shortness of breath; Patient HX: Refused heart stents during cardiac cath 2013. Current every day smoker. Cirrhosis; Additional info: SOB TECHNIQUE: Imaging protocol: Computed tomographic angiography of the chest with contrast. 3D rendering (Not supervised by radiologist): MIP and/or 3D reconstructed images were created by the technologist. Radiation optimization: All CT scans at this facility use at least one of these dose optimization techniques: automated exposure control; mA and/or kV adjustment per patient size (includes targeted exams where dose is matched to clinical indication); or iterative reconstruction. Contrast material: OMNI 350; Contrast volume: 100 ml; Contrast route: INTRAVENOUS (IV); REPORTING DATA: Count of CT and Cardiac NM exams in prior 12 months: This patient has received 10 known CTs and 0 known cardiac nuclear medicine studies in the 12 months prior to the current study. COMPAR[place]: [place] [id number] 12/27/2021 2:36 AM RADIATION DOSE METRICS: Total DLP (mGy-cm): 867.13 FINDINGS: Pulmonary arteries: No pulmonary embolism. Aorta: No aortic dissection. Lungs: There is mild paraseptal emphysema. There is bibasilar atelectasis. Pleural spaces: Unremarkable. No pneumothorax. No pleural effusion. Heart: Unremarkable. No cardiomegaly. No pericardial effusion. Lymph nodes: Unremarkable. No enlarged lymph nodes. Liver: There is fatty infiltration of the liver. There is cirrhotic morphology of the liver with multiple upper abdominal collateral vessels .. Bones/joints: Unremarkable. No acute fracture. Soft tissues: Unremarkable. CT/CT angio chest PE protcl [id number] IMPRESSION: 1. No pulmonary embolism. 2. No aortic dissection. 3. Fatty infiltration of the liver. 4. Cirrhosis with portal venous hypertension.
[2022-09-27] MEDS: iohexol 350 mg/mL 500 mL Btl (per mL) IV (03:41)
--- NOTE | 2022-09-27 04:25 | ECG_ITS ---
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 Measurements Intervals [place] Rate: 101 P: 16 [place]: 150 QRS: -28 QRSD: 81 T: 4 QT: 345 QTc: 448 Interpretive Statements SINUS TACHYCARDIA POSSIBLE ANTERIOR MYOCARDIAL INFARCTION , PROBABLY OLD [30 ms Q WAVE IN V3/V4, OR R < 0.2 mV IN V4] ABNORMAL RHYTHM ECG Compared to ECG 09/27/2022 02:09:02 No significant changes Electronically Signed On 09-28-2022 22:14:42 CDT by Rex Gilbert M.D. [id number]
[2022-09-27 04:52] LABS: Troponin 5 2HR 12.61 ng/L (0-15)
[2022-09-27 05:12] LABS: Troponin 5 2HR Delta -0.39 ABS# (0-10)
== END 2022-09-27 05:37 | disposition home or self-care (01) ==
PROVIDERS: Emergency Provider Emergency Medicine; PCP Nurse Practitioner Family
DX: K74.60 Unspecified cirrhosis of liver (principal); R06.00 Dyspnea, unspecified; Z79.84 Long term (current) use of oral hypoglycemic drugs; F17.210 Nicotine dependence, cigarettes, uncomplicated; E11.9 Type 2 diabetes mellitus without complications; I10 Essential (primary) hypertension; I25.10 Atherosclerotic heart disease of native coronary artery without angina pectoris; Z86.73 Personal history of transient ischemic attack (TIA), and cerebral infarction without residual deficits; E78.2 Mixed hyperlipidemia
CPT/HCPCS: 71045; 71275; 80053; 83880; 84484; 85025; 93005; 94640; 99285; J7613; J7644; Q9967

== ENCOUNTER 2022-10-04 22:10 | Inpatient (IN) | payer MEDICARE, MEDICAID, SELFPAY ==
--- NOTE | 2022-10-04 22:12 | XRR_ITS ---
PROCEDURE INFORMATION: Exam: XR Chest Exam date and time: 10/04/2022 10:27 PM Age: 47 years old Clinical indication: Shortness of breath; Additional info: SOB TECHNIQUE: Imaging protocol: Radiologic exam of the chest. Views: 1 view. COMPARISON: CR (CHEST, ) 09/27/2022 2:20 AM FINDINGS: Lungs: Left mid to lower lung field atelectasis versus infiltrate. Pleural spaces: Unremarkable. No pleural effusion. No pneumothorax. Heart/Mediastinum: Unremarkable. No cardiomegaly. Bones/joints: Unremarkable. XR/XR chest 1V portable [id number] IMPRESSION: Left mid to lower lung field atelectasis versus infiltrate.
[2022-10-04 22:13] VITALS: BP 125/86; PULSE 110; RESP 22; TEMP 36.8; O2SAT 94; BMI 28.8
--- NOTE | 2022-10-04 22:13 | ECG_ITS ---
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 Measurements Intervals [place] Rate: 99 P: 11 [place]: 140 QRS: -33 QRSD: 90 T: 6 QT: 335 QTc: 430 Interpretive Statements SINUS RHYTHM PATTERN CONSISTENT WITH PULMONARY DISEASE SEPTAL MYOCARDIAL INFARCTION , PROBABLY OLD [40+ ms Q WAVE IN V1/V2] INFERIOR MYOCARDIAL INFARCTION , PROBABLY OLD [40+ ms Q WAVE AND/OR ST/T ABNORMALITY IN II/aVF] Compared to ECG 09/27/2022 04:25:36 Sinus tachycardia no longer present Myocardial infarct finding still present Electronically Signed On 10-06-2022 16:30:37 CDT by Rex Gilbert M.D. [email or web address]/store/[id number]
--- NOTE | 2022-10-04 22:24 | ED_ITS ---
HPI - SOB/Dyspnea General: Chief Complaint: Shortness of Breath/Dyspnea Stated Complaint: SOB/ABD PAIN Time Seen by Provider: 10/04/22 22:12 Source: patient and EMS Mode of arrival: EMS Limitations: no limitations History of Present Illness: HPI Narrative: 47-year-old male with a history of liver cirrhosis with abdominal ascites patient was seen here a week ago had a paracentesis. He states that he has had abdominal swelling again he is also having some dyspnea as well. He denies any fever rates pain a 5 out of 10 he states he is also been having homicidal and suicidal thoughts. He states that he is headed agreements his ex- and he has a plan to kill her along with kill himself. Associated symptoms: Reports abdominal pain; Deny chest pain, fever(s), nausea or vomiting Review of Systems Const: Denies: fever(s), chills, body aches or change in appetite Eyes: Denies: eye discomfort ENMT: Denies: throat pain or dental pain Card: Denies: chest pain Resp: Reports: dyspnea GI: Reports: abdominal pain; Denies: nausea, vomiting or diarrhea : Denies: dysuria Musc: Denies: neck pain or back pain Skin/Breast: Denies: rash Neuro: Denies: headache(s) Psych: Reports: depression, suicidal ideation and homicidal ideation [facility] ED PFSH: Medical History Acne rosacea ALC (alcoholic liver cirrhosis) Alcohol dependence Bipolar disorder Controlled diabetes mellitus with hyperglycemia DM neuropathy, painful Essential (primary) hypertension History of alcohol abuse daily use of hard liquor History of coronary artery disease History of CVA (cerebrovascular accident) 2009 Right side weakness due to a bleed History of memory loss History of schizophrenia Mixed hyperlipidemia Nicotine dependence, cigarettes, uncomplicated Psoriasis Psychiatric care Seizure disorder Traumatic brain injury Surgical History History of cardiac catheterization ~2014 done in [place], reports they discussed possible stent but he declined History of colonoscopy with polypectomy 2016 History of esophagogastroduodenoscopy (EGD) History of eye surgery Family History Other Dementia Diabetes Hypertension Lung disease Psychiatric illness Stroke Denies family history of Chronic kidney disease (CKD) Anesthesia complication Bleeding disorder Cancer Social History Smoking and tobacco status: current every day smoker cigarettes Packs smoked per day: 2.5 Second hand smoke exposure: Yes Alcohol intake: current Alcohol intake frequency: 3 or more drinks per day Alcohol type: hard liquor Substance/Drug Use: never Adopted: No Caregiver/support person: Yes Lives independently: No Household members: friend(s) and caregiver Housing: Manufactured/Mobile home Marital status: Number of children: 8 service: No Current occupational status: disabled Pets and animals: Yes Do you think of yourself as: Straight/Heterosexual Current gender identity: Male Physical Exam Const: COMMON NORMALS: patient oriented x3 HENMT: COMMON NORMALS: normocephalic and atraumatic HEAD & SCALP: normocephalic and atraumatic Eye: COMMON NORMALS: conjunctivae normal CONJUNCTIVA: Yes conjunctivae normal Neck/C-Spine: COMMON NORMALS: full ROM and supple Chest: COMMONS NORMALS: normal inspection of the chest and normal palpation of entire chest wall Resp: COMMON NORMALS: No retractions, No use of accessory muscles and clear to auscultation bilaterally AUSCULTATION: clear to auscultation bilaterally Cardio: COMMON NORMALS: regular rate, regular rhythm and No murmurs present (Cardio) RATE: regular rate RHYTHM: regular rhythm GI: COMMON NORMALS: Soft to palpation, non-tender and no masses PALPATION: Yes Soft to palpation OTHER: distended abdomen with ascites Extremity: COMMON NORMALS: normal to inspection and full ROM Neuro: COMMON NORMALS: patient oriented x3, moves all extremities and no focal motor deficits Psych: COMMON NORMALS: mental status grossly normal, Normal thought process present and cooperative THOUGHT PROCESS: Normal thought process present THOUGHT CONTENT: Yes Suicidality present and Yes Homicidality present Skin: COMMON NORMALS: no rashes or lesions noted and no wounds GENERAL SKIN EXAM: no rashes or lesions noted Course Vital Signs: Vital signs: Vital Signs Temperature 98.2 F 10/04/22 22:13 Pulse Rate 110 H 10/04/22 22:13 Respiratory Rate 22 H 10/04/22 22:13 Blood Pressure 125/86 10/04/22 22:13 Pulse Oximetry 94 10/04/22 22:13 Oxygen Delivery Me thod Nasal Cannula 10/04/22 22:13 Oxygen Flow Rate 2 10/04/22 22:13 MDM - SOB/Dyspnea Medical Decision Making Patient presents here with abdominal pain along with dyspnea he is also saying that he is suicidal homicidal he has a large amount of ascites here likely causing some of his dyspnea patient seen by the hospitalist will admit at this time for his ascites for likely paracentesis in the morning he is also placed under 96-hour hold up spoke to the psychiatrist who is consulted. Medical Records I reviewed the patient's medical records. Lab Data I reviewed the patient's lab results. 10/04/22 22:24 10/04/22 22:24 Labs/Radiology: Radiology Impressions Chest X-Ray 10/04/22 22:12 IMPRESSION: Left mid to lower lung field atelectasis versus infiltrate. Laboratory Results WBC 5.2 10^3/uL (4.0-10.0) 10/04/22 22: RBC 4.29 10^6/uL (4.1-5.3) 10/04/22 22:24 Hgb 14.3 g/dL (11.7-16.6) 10/04/22 22: Hct 41.6 % (42.0-52.0) L 10/04/22 22:24 MCV 97.0 fl (80-94) H 10/04/22 22:24 MCH 33.3 pg (28.0-34.0) 10/04/22 22: MCHC 34.4 g/dL (30.0-36.0) 10/04/22 22: RDW 14.5 % (12.1-15.1) 10/04/22 22: Plt Count 151 10^3/cmm (130-400) 10/04/22 22:24 MPV 10.1 fL (7.4-10.4) 10/04/22 22: Neut % (Auto) 76.8 % 10/04/22 22: Lymph % (Auto) 10.0 % 10/04/22 22: [place] % (Auto) 10.8 % 10/04/22 22: Eos % (Auto) 1.0 % 10/04/22 22: Baso % (Auto) 1.0 % 10/04/22 22:24 Neut # (Auto) 4.00 10^3/uL (1.8-7.7) 10/04/22 22:24 Lymph # (Auto) 0.5 10^3/uL (0.8-4.8) L 10/04/22 22:24 [place] # (Auto) 0.6 10^3/uL (0.2-0.9) 10/04/22 22:24 Eos # (Auto) 0.1 10^3/uL (0.0-0.8) 10/04/22 22:24 Baso # (Auto) 0.1 10^3/uL (0.0-0.1) 10/04/22 22:24 Nucleated RBC % (auto) 0 % 10/04/22 22: Nucleated RBCs # 0.0 /100WBC 10/04/22 22:24 PT 16.50 SECONDS (12.1-14.9) H 10/04/22 22:24 INR 1.28 (0.8-1.2) H 10/04/22 22:24 Sodium 130 mmol/L (136-145) L 10/04/22 22:24 Potassium 4.4 mmol/L (3.5-5.1) 10/04/22 22:24 Chloride 94 mmol/L (98-107) L 10/04/22 22:24 Carbon Dioxide 24 mmol/L (22-29) 10/04/22 22:24 Anion Gap 16.4 (5-19) 10/04/22 22:24 BUN 8 mg/dL (6-20) 10/04/22 22:24 Creatinine 0.4 mg/dL (0.7-1.2) L 10/04/22 22:24 GFR Calculation 228.6 mL/min (90-130) H 10/04/22 22:24 Glucose 144 mg/dL (65-115) H 10/04/22 22:24 Calculated Osmolality 271 mOsm/kg (285-295) L 10/04/22 22:24 Calcium 7.4 mg/dL (8.5-10.5) L 10/04/22 22:24 Total Bilirubin 3.4 mg/dL (0.15-1.2) H 10/04/22 22:24 AST 250 U/L (0-40) H 10/04/22 22:24 ALT 67 U/L (0-41) H 10/04/22 22:24 Alkaline Phosphatase 129 U/L (40-130) 10/04/22 22:24 NT-Pro-B Natriuret Pep 131 pg/mL (0-125) H 10/04/22 22:24 Total Protein 7.1 g/dL (6.6-8.7) 10/04/22 22:24 Albumin 2.6 g/dL (3.5-5.2) L 10/04/22 22:24 Globulin 4.5 g/dL (1.3-4.6) 10/04/22 22:24 Lipase 118 U/L (13-60) H 10/04/22 22:24 Salicylates < 0.3 mg/dL (3-10) L 10/04/22 22:24 Acetaminophen < 5.0 ug/mL (10-30) L 10/04/22 22:24 Ethyl Alcohol 230 mg/dL (0-10) H 10/04/22 22:24 Discharge Plan Discharge Patient Disposition: Admitted As Inpatient Clinical Impression: Cirrhosis of liver, Abdominal ascites, Alcohol dependence, Suicidal ideation Condition: Stable Prescriptions: No Action metformin 500 mg tablet extended release 24 hr 500 mg PO BID 90 Days Qty: 180 0RF gabapentin 400 mg capsule 400 mg PO TID 30 Days Qty: 90 0RF lisinopril 20 mg tablet 20 mg PO DAILY 90 Days Qty: 90 0RF Invega Sustenna 234 mg/1.5 mL syringe 234 mg IM Q30D Qty: 1.5 0RF Rx Instructions: initial starting dose citalopram [Celexa] 20 mg tablet 20 mg PO DAILY Qty: 30 2RF paliperidone [Invega] 6 mg tablet extended release 24 hr 6 mg PO QAM Qty: 14 2RF Rx Instructions: daily as needed 2 weeks before injection is next due levetiracetam 750 mg tablet 750 mg PO BID 30 Days Qty: 60 1RF spironolactone 100 mg tablet 100 mg PO DAILY lactulose 10 gram/15 mL solution 30 ml PO TID PRN (Reason: Constipation) trazodone 50 mg tablet 50 mg PO BEDTIME Referrals: Jewell Hugo FNP-C [Primary Care Provider] - Coding Level of Care Code ED Mold Unloader for g Fwd
--- NOTE | 2022-10-04 22:40 | PC.NURSE ---
96 hour Hold Patient Rights have been read & a copy of the same given to patient. environmental protection officer Cruzito Torres present at bedside
[2022-10-04 22:42] LABS: Basophils # 0.1 10^3/uL (0.0-0.1); Eosinophils # 0.1 10^3/uL (0.0-0.8); Hematocrit 41.6 % (42.0-52.0); Hemoglobin 14.3 g/dL (11.7-16.6); Lymphocytes # 0.5 10^3/uL (0.8-4.8); Mean Corpuscular HGB Conc 34.4 g/dL (30.0-36.0); Mean Corpuscular Hemoglobin 33.3 pg (28.0-34.0); Mean Platelet Volume 10.1 fL (7.4-10.4); Monocytes # 0.6 10^3/uL (0.2-0.9); Monocytes % 10.8 %; Neutrophils % 76.8 %; Nucleated Red Blood Cells % 0 %; Platelet Count 151 10^3/cmm (130-400); Red Blood Count 4.29 10^6/uL (4.1-5.3); Red Cell Distribution Width 14.5 % (12.1-15.1); White Blood Count 5.2 10^3/uL (4.0-10.0)
[2022-10-04 22:51] LABS: INR 1.28 (0.8-1.2)
[2022-10-04 23:13] LABS: Alanine Aminotransferase 67 U/L (0-41); Albumin Level 2.6 g/dL (3.5-5.2); Alcohol Level 230 mg/dL (0-10); Alkaline Phosphatase 129 U/L (40-130); Anion Gap 16.4 (5-19); Aspartate Amino Transferase 250 U/L (0-40); Blood Urea Nitrogen 8 mg/dL (6-20); Calcium 7.4 mg/dL (8.5-10.5); Carbon Dioxide 24 mmol/L (22-29); Chloride 94 mmol/L (98-107); Globulin 4.5 g/dL (1.3-4.6); Glomerular Filtration Rate 228.6 mL/min (90-130); Glucose 144 mg/dL (65-115); Lipase 118 U/L (13-60); NT Pro B Type Natriuretic Pept 131 pg/mL (0-125); Osmolality Calculated 271 mOsm/kg (285-295); Potassium 4.4 mmol/L (3.5-5.1); Sodium 130 mmol/L (136-145); Total Bilirubin 3.4 mg/dL (0.15-1.2); Total Protein 7.1 g/dL (6.6-8.7)
[2022-10-04 23:30] LABS: Acetaminophen < 5.0 ug/mL (10-30); Salicylate < 0.3 mg/dL (3-10)
[2022-10-05] VITALS (14 sets, daily range): BP systolic 107–145; BP diastolic 67–92; PULSE 84–108; RESP 15–20; TEMP 36.4–38; O2SAT 93–99; BMI 34.5
--- NOTE | 2022-10-05 01:29 | P.HP_ITS ---
Providers/Chief Complaint Admitting Physician: Brandon Howard MD Primary Care Provider: YENI Perez Chief Complaint: SOB/ABD PAIN History of Present Illness Reinaldo Flores is a 47 year old male with underlying cirrhosis and schizophrenia who presents to the emergency department with complaints of increasing abdominal swelling since his last paracentesis, which patient reports was done about a week ago. He is also complained of homicidal and suicidal thoughts so he was placed on a hold by the emergency department physician. No fever lately. Reports his abdomen feels full but does not have any severe sharp pain. He states he is short of breath, and this improves some with paracentesis. He usually has very large volume paracentesis. No vomiting. Review of Systems General: Reports: 10 or more systems reviewed and unremarkable except in HPI and below Const: Reports: fatigue; Denies: fever(s) or chills Card: Denies: chest pain Resp: Reports: dyspnea; Denies: non-productive cough GI: Reports: abdominal pain; Denies: nausea or vomiting Medications/Allergies Home Medications Medication Instructions Recorded Confirmed Last Taken Type levetiracetam 750 mg tablet 750 mg PO BID 30 days #60 tabs 06/12/22 10/05/22 09/28/22 Rx lactulose 10 gram/15 mL oral 30 ml PO TID PRN Constipation 07/13/22 10/05/22 09/28/22 History solution spironolactone 100 mg tablet 100 mg PO DAILY 07/13/22 10/05/22 09/28/22 History citalopram 20 mg tablet (Celexa) 20 mg PO DAILY #30 tabs 08/10/22 10/05/22 09/28/22 Rx paliperidone 6 mg tablet,extended 6 mg PO QAM #14 tabs 08/10/22 10/05/22 09/28/22 Rx release 24 hr (Invega) paliperidone palmitate 234 mg/1.5 234 mg (1.5 mL) IM Q30D #1.5 mL 08/10/22 10/05/22 09/28/22 Rx mL intramuscular syringe (Invega Sustenna) gabapentin 400 mg capsule 400 mg PO TID 30 days #90 caps 08/16/22 10/05/22 09/28/22 Rx lisinopril 20 mg tablet 20 mg PO DAILY 90 days #90 tabs 08/16/22 10/05/22 09/28/22 Rx metformin 500 mg tablet,extended 500 mg PO BID 90 days #180 tabs 08/16/22 10/05/22 09/28/22 Rx release 24 hr trazodone 50 mg tablet 50 mg PO BEDTIME 08/21/22 10/05/22 09/28/22 History Allergies Allergy/AdvReac Type Severity Reaction Status Date / Time clozapine [From Clozaril] AdvReac Severe Lowered Verified 10/04/22 22:18 his WBC he says divalproex sodium AdvReac Severe swelling Verified 10/04/22 22:18 [From Depakote] haloperidol [From Haldol] AdvReac Severe swelling Verified 10/04/22 22:18 nitroglycerin AdvReac Severe Stopped Verified 10/04/22 22:18 heart Bee stings Allergy Severe Swelling & Uncoded 10/04/22 22:18 breathing problems, Anaphylactic shock PFSH Acute PFSH: Medical History Acne rosacea ALC (alcoholic liver cirrhosis) Alcohol dependence Bipolar disorder Controlled diabetes mellitus with hyperglycemia DM neuropathy, painful Essential (primary) hypertension History of alcohol abuse daily use of hard liquor History of coronary artery disease History of CVA (cerebrovascular accident) 2009 Right side weakness due to a bleed History of memory loss History of schizophrenia Mixed hyperlipidemia Nicotine dependence, cigarettes, uncomplicated Psoriasis Psychiatric care Seizure disorder Traumatic brain injury Surgical History History of cardiac catheterization ~2014 done in [place], reports they discussed possible stent but he declined History of colonoscopy with polypectomy 2016 History of esophagogastroduodenoscopy (EGD) History of eye surgery Family History Other Dementia Diabetes Hypertension Lung disease Psychiatric illness Stroke Denies family history of Chronic kidney disease (CKD) Anesthesia complication Bleeding disorder Cancer Social History Smoking and tobacco status: current every day smoker cigarettes Packs smoked per day: 2.5 Second hand smoke exposure: Yes Alcohol intake: current Alcohol intake frequency: 3 or more drinks per day Alcohol type: hard liquor Substance/Drug Use: never Adopted: No Caregiver/support person: Yes Lives independently: No Household members: friend(s) and caregiver Housing: Manufactured/Mobile home Marital status: Number of children: 8 service: No Current occupational status: disabled Pets and animals: Yes Do you think of yourself as: Straight/Heterosexual Current gender identity: Male Vitals/I&O/Wt Last Vital Signs Temp 98.2 F 10/04/22 22:13 Pulse 110 H 10/04/22 22:13 Resp 22 H 10/04/22 22:13 BP 125/86 10/04/22 22:13 Pulse Ox 94 10/04/22 22:13 O2 Del Method Nasal Cannula 10/04/22 22:13 O2 Flow Rate 2 10/04/22 22:13 Weight last 48 hrs Weight 86.183 kg Physical Exam Narrative: General exam is a white male, reporting shortness of breath and abdominal distention. HEENT: Atraumatic normocephalic. Pupils equally round. Oropharynx clear. Neck is supple no lymphadenopathy thyromegaly Cardiovascular tachycardic, no murmur Lungs bilateral expiratory wheezes Abdomen significant fluid wave, significant distention, all consistent with massive ascites exam is deferred Extremities 2+ edema bilaterally Skin no rash Neuro no obvious focal deficits Data 10/04/22 22:24 10/04/22 22:24 Other Labs: INR 1.28 Calcium 7.4 Bilirubin 3.4 AST 250, ALT 67 Alk phos 129 BNP 131 Albumin 2.6 Lipase 118. Alcohol level 230. Acetaminophen and salicylate level not detectable. Chest x-ray read by reviewed demonstrates atelectasis A&P Assessment and plan (1) Abdominal ascites: Patient with massive abdominal ascites He does not have any severe pain, or concerns for infection. A therapeutic paracentesis can be done tomorrow, and albumin will be needed with this as it will likely be a significant volume Continue his Aldactone Encourage fluid restriction, 1200 cc Arrange for ultrasound-guided paracentesis later this morning. Discussed with him risks, and he wishes to proceed. (2) Hypoxia: Likely secondary to ascites, but tobacco dependency and probable COPD is also playing a role (3) COPD (chronic obstructive pulmonary disease): Patient likely has significant COPD Initiate budesonide DuoNeb 4 times daily (4) Nicotine dependence, unspecified, uncomplicated: Encourage abstinence (5) Suicidal ideation: Psychiatry consultation 96-hour hold (6) Controlled diabetes mellitus with hyperglycemia: Initiate sliding scale insulin Qualifiers: Diabetes mellitus press tender long goods insulin use: without assisted use Diabetes mellitus type: type 2 Qualified Code(s): E11.65 - Type 2 diabetes mellitus with hyperglycemia (7) Essential (primary) hypertension: Continue lisinopril (8) Schizophrenia: Await medicine reconciliation, psychiatric consultation prior to starting med icines (9) Alcohol dependence: Monitor for any withdrawal. He was drinking prior to coming in, alcohol level is noted. Plan Multiple other medical problems as outlined in past medical history Full code currently SCDs for DVT prophylaxis, anticipating paracentesis tomorrow morning Attestations Medical Necessity Statement*: Will need greater than 2 midnight stay for evaluation of abdominal ascites, hypoxia, suicidal ideation Diagnoses Abdominal ascites R18.8 Hypoxia R09.02 COPD (chronic obstructive pulmonary disease) J44.9 Nicotine dependence, unspecified, uncomplicated F17.200 Suicidal ideation R45.851 Controlled diabetes mellitus with hyperglycemia E11.65 Diabetes mellitus assisted insulin use: without press tender long goods use Diabetes mellitus type: type 2 Essential (primary) hypertension I10 Schizophrenia F20.9 Alcohol dependence F10.20 Time Spent (min) 46
--- NOTE | 2022-10-05 01:48 | US_ITS ---
WS: [id number] ULTRASOUND-GUIDED THERAPEUTIC PARACENTESIS Procedure, risks, and complications have been explained to the patient. Consent is obtained. Utilizing aseptic technique and 1% buffered lidocaine, a small dermatome was made through which a 5 F rench Yueh catheter was inserted. Approximately 92873 ml of clear peritoneal fluid was obtained with out difficulty. No complications encountered. US/US paracentesis abd w [id number] IMPRESSION: Uncomplicated paracentesis yielding 10,000 ml of peritoneal fluid.
[2022-10-05] MEDS: paliperidone ER 6 mg Tablet PO (05:53)
[2022-10-05] MEDS: ipratropium-albuterol 3 mL Neb INHALATION (07:49)
[2022-10-05] MEDS: budesonide 0.5 mg/2 mL Neb INHALATION (07:49)
[2022-10-05 08:01] LABS: Glucose Point of Care 101 mg/dL (70-110)
--- NOTE | 2022-10-05 08:32 | PM.MISC ---
Miscellaneous Note Note: Patient is complaining of shortness of breath currently on 3 L, patient is stating he smokes 3 packs of cigarettes every day Patient is stating that he really intended to hurt himself by getting middle of the [place] to end his life He is frustrated because of his chronic conditions he is going for paracentesis every 3 days His is already admitted to the NPU Anasarca Currently on 3 L Mild wheezing noted Muscle mass loss Distended abdomen Tense right lower quadrant Awake and alert Nonfocal neuro exam GCS 15 Plan We will give him 1 bag of albumin, requested paracentesis Afebrile Complaining of mild tenderness which could be due to abdominal distention and stretch on liver capsule however I would empirically cover him with ceftriaxone 2 g prophylactically Patient is stating that he would consider hospice/palliative care, his is admitted to the neuropsychiatric unit, there is no one else in the family, We will request psych evaluation to rule out depression to see if he has appropriate decision-making capacity Patient is stating that in case of any respiratory or cardiac emergencies she does not want to be resuscitated with chest compressions, defibrillation or intubation
[2022-10-05] MEDS: albumin 12.5 GM/50 ML VIAL IV (08:36)
[2022-10-05] MEDS: spironolactone 25 mg Tablet 100 MG PO (08:37)
[2022-10-05] MEDS: levETIRAcetam 500 mg Tablet 750 MG PO ×2 (08:40→17:05)
[2022-10-05] MEDS: gabapentin 400 mg Capsule PO ×3 (08:40→20:32)
[2022-10-05] MEDS: citalopram 20 mg Tablet PO (08:41)
[2022-10-05] MEDS: cefTRIAXone 2,000 MG in sodium chloride 0.9% (plus) 50 ML 100 MG IV (09:27)
[2022-10-05 12:10] LABS: Amphetamines Screen Urine Negative (Negative); Barbiturates Screen Urine Negative (Negative); Benzodiazepines Screen Urine Negative (Negative); Cocaine Screen Urine Negative (Negative); Opiate Screen Urine Negative (Negative); PCP Screen Urine Negative (Negative); THC Screen Urine Negative (Negative)
[2022-10-05 12:17] LABS: Glucose Point of Care 116 mg/dL (70-110)
--- NOTE | 2022-10-05 16:32 | W.PM.NPUH&PS ---
Providers/Chief Complaint Admitting Physician: Brandon Howard MD Primary Care Provider: YENI Perez Chief Complaint: SOB/ABD PAIN HPI NPU History of Present Illness Reinaldo Flores is a 47 year old male who presented to the emergency department with the following report: Chief Complaint: Shortness of Breath/Dyspnea Stated Complaint: SOB/ABD PAIN Time Seen by Provider: 10/04/22 22:12 Source: patient and EMS Mode of arrival: EMS Limitations: no limitations History of Present Illness: HPI Narrative: 47-year-old male with a history of liver cirrhosis with abdominal ascites patient was seen here a week ago had a paracentesis. He states that he has had abdominal swelling again he is also having some dyspnea as well. He denies any fever rates pain a 5 out of 10 he states he is also been having homicidal and suicidal thoughts. He states that he is headed agreements his ex- and he has a plan to kill her along with kill himself. Associated symptoms: Reports abdominal pain; Deny chest pain, fever(s), nausea or vomiting He was admitted to the [facility] department for definitive treatment of those issues. Psychiatric consult was requested secondary to knowledge of the patient plus reports of homicidal and suicidal thoughts. Patient presents today as he often has seeming fairly frustrated with situations. He acknowledges that he had gotten intoxicated and while intoxicated made some statements that were not compatible with discharge. He reports that having had his paracentesis and sobered up that he is having no thoughts to kill himself or anybody else. This is consistent with his previous stays where he will come and get pain and his ascites managed and then very quickly reports a desire to go home. He continues to endorse no interest in discontinuing his drinking or any other behaviors including smoking. He reports he is not interested in any kinds of interventions including rehab. We discussed the fact that without him having an openness to those changes there is essentially nothing that we can do. The only issue that we have to explore and address is the issue of lethality. We discussed the fact that we would talk with him again in the morning and that either we would take him down to the neuropsychiatric unit on this 96-hour hold for a short stay or discharge him home. Per his 08/22/2022 [facility] inpatient psychiatric discharge summary: Discharge Diagnosis (1) Schizophrenia: Status: Chronic (2) Major depression, recurrent, chronic: Status: Chronic (3) ALC (alcoholic liver cirrhosis): Status: Chronic (4) Traumatic brain injury: Status: Acute (5) Alcohol dependence: Status: Chronic Reason for Visit Reason for Visit: SI, ETOH Brief History: History of Present Illness Reinaldo Flores is a 47 year old male with a history of multiple inpatient psychiatric hospitalizations and a history of schizophrenia and major depression along with alcohol dependence who was admitted with vague complaints of suicide. The patient was admitted to the neuropsychiatric unit for further treatment and evaluation. He reports here that he had not made any statements to hurt himself and that he could not remember what he had stated because he was in the midst of a seizure yesterday. He had reported that he had paracentesis yesterday and states that he had drank alcohol just prior to coming into the emergency room yesterday. He has reported no change with his paranoia and reports depression. He reports that he is not interested in receiving treatment for his alcohol use and states that he will probably from his continued alcohol consumption. He reports that he has been receiving paracentesis at least weekly and states that he may have made a threat to cut his throat although he states he does not remember this clearly. He does complain of difficulties with shortness of breath associated with his increasing abdominal girth and ascites. He reports a significant history of alcohol withdrawal symptoms. He reports no acute stressors. He has indicated a history of noncompliance with his medications although he states that he had received his Invega sustain a shot at 234 mg last week at his primary care's office in [place]. Past Psychiatric History: Is notable for multiple inpatient psychiatric hospitalizations. He reports last being admitted here in May of 2022. He reports history of alcohol dependence, schizophrenia and traumatic brain injury. He was last seen at his outpatient appointment 2 weeks ago [facility]. Hx of multiple psychiatric medication trials: zyprexa, valium, campral, naltrexone, Current medications: invega sustenna IM, Citalopram Substance abuse hx: reports misuse of stimulants in the past but reports active use of alcohol for over 20 years with longest period of abstinence was 1 year. Medical History: Hx of reported stroke in 2010, traumatic brain injury, Grand mal seizures, diabetes, diabetic neuropathy, alcoholic sirrosis. Allergies: haldol, NTG, Clozaril, Bee stings. Medications: see below. Surgeries: cataract surgery Legal Hx: none reported Social Hx: lives in [place] with . 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 Meds NPU Home Medications Medication Instructions Recorded Confirmed Last Taken Type levetiracetam 750 mg tablet 750 mg PO BID 30 days #60 tabs 06/12/22 10/05/22 09/28/22 Rx lactulose 10 gram/15 mL oral 30 ml PO TID PRN Constipation 07/13/22 10/05/22 09/28/22 History solution spironolactone 100 mg tablet 100 mg PO DAILY 07/13/22 10/05/22 09/28/22 History citalopram 20 mg tablet (Celexa) 20 mg PO DAILY #30 tabs 08/10/22 10/05/22 09/28/22 Rx paliperidone 6 mg tablet,extended 6 mg PO QAM #14 tabs 08/10/22 10/05/22 09/28/22 Rx release 24 hr (Invega) paliperidone palmitate 234 mg/1.5 234 mg (1.5 mL) IM Q30D #1.5 mL 08/10/22 10/05/22 09/28/22 Rx mL intramuscular syringe (Invega Sustenna) gabapentin 400 mg capsule 400 mg PO TID 30 days #90 caps 08/16/22 10/05/22 09/28/22 Rx lisinopril 20 mg tablet 20 mg PO DAILY 90 days #90 tabs 08/16/22 10/05/22 09/28/22 Rx metformin 500 mg tablet,extended 500 mg PO BID 90 days #180 tabs 08/16/22 10/05/22 09/28/22 Rx release 24 hr trazodone 50 mg tablet 50 mg PO BEDTIME 08/21/22 10/05/22 09/28/22 History Allergies Allergy/AdvReac Type Severity Reaction Status Date / Time clozapine [From Clozaril] AdvReac Severe Lowered Verified 10/04/22 22:18 his WBC he says divalproex sodium AdvReac Severe swelling Verified 10/04/22 22:18 [From Depakote] haloperidol [From Haldol] AdvReac Severe swelling Verified 10/04/22 22:18 nitroglycerin AdvReac Severe Stopped Verified 10/04/22 22:18 heart Bee stings Allergy Severe Swelling & Uncoded 10/04/22 22:18 breathing problems, Anaphylactic shock PFSH NPU PFSH: Medical History Acne rosacea ALC (alcoholic liver cirrhosis) Alcohol dependence Bipolar disorder Controlled diabetes mellitus with hyperglycemia DM neuropathy, painful Essential (primary) hypertension History of alcohol abuse daily use of hard liquor History of coronary artery disease History of CVA (cerebrovascular accident) 2009 Right side weakness due to a bleed History of memory loss History of schizophrenia Mixed hyperlipidemia Nicotine dependence, cigarettes, uncomplicated Psoriasis Psychiatric care Seizure disorder Traumatic brain injury Surgical History History of cardiac catheterization ~2014 done in [place], reports they discussed possible stent but he declined History of colonoscopy with polypectomy 2015 History of esophagogastroduodenoscopy (EGD) History of eye surgery Family History Other Dementia Diabetes Hypertension Lung disease Psychiatric illness Stroke Denies family history of Chronic kidney disease (CKD) Anesthesia complication Bleeding disorder Cancer Social History Smoking and tobacco status: current every day smoker cigarettes Packs smoked per day: 2.5 Second hand smoke exposure: Yes Alcohol intake: current Alcohol intake frequency: 3 or more drinks per day Alcohol type: hard liquor Substance/Drug Use: never Adopted: No Caregiver/support person: Yes Lives independently: No Household members: friend(s) and caregiver Housing: Manufactured/Mobile home Marital status: Number of children: 8 service: No Current occupational status: disabled Pets and animals: Yes Do you think of yourself as: Straight/Heterosexual Current gender identity: Male Mental Status Exam MSE Comments: This is an obese white male with hospital gown on with intermittent eye contact and poor grooming [facility] Significant arriaza. He was cooperative with exam in no acute distress. His speech was normal in rate and volume. Mood described as better today. His affect was subdued. Thought process:linear, logical Thought content: Patient denied suicidal or homicidal ideation. There were no delusions reported or noted, he denied any auditory or visual hallucinations currently. Attention and concentration appeared intact and memory was mostly reliable but none were formally tested. The alert and oriented x3. Insight is impaired. His impulse control is impaired, His judgment is limited. Vitals/I&O/Wt Last Vital Signs Temp 98.0 F 10/05/22 08:00 Pulse 102 H 10/05/22 14:56 Resp 18 10/05/22 14:56 BP 144/88 10/05/22 10:03 Pulse Ox 95 10/05/22 14:56 O2 Del Method Nasal Cannula 10/05/22 14:56 O2 Flow Rate 3 10/05/22 14:56 10/05/22 10/05/22 10/05/22 06:59 14:59 22:59 Intake Total 870 / 870 480 / 1350 Output Total 68668 / 11784 Balance -9730 / -9730 480 / -9250 Weight last 48 hrs Weight 103.136 kg Weight 86.183 kg Data NPU 10/06/22 05:23 10/06/22 05:23 A&P Assessment and plan (1) Schizophrenia: (2) Major depression, recurrent, chronic: (3) ALC (alcoholic liver cirrhosis): (4) Traumatic brain injury: (5) Alcohol dependence: Plan The patient is a 47-year-old white male with schizophrenia, major depressive disorder and alcohol dependence with continued drinking in the face of end-stage liver disease with continued ascites admitted with homicidal ideation with active medical problems including a cirrhotic liver. 1.? Continue current medications. 2.? Continue one-to-one while on MedSurg. 3.? [facility] protocol for alcohol withdrawal. 4. We will consider transfer to neuropsychiatric unit versus discharge tomorrow. Involuntary Hold Information 96 Hour Hold: 96 Hour Involuntary Admission: No 96 Hour Hold Ending Date: 06/12/22 96 Hour Hold Ending Time: 14:00 Attestations NPU Medical Necessity Statement*: N/A. But agree that inpatient hospitalization is medically necessary and the clinically appropriate intervention at this time. We will monitor medications and make changes as indicated with likely some length of stay 1 to 3 days. Coding Level of Care Code Acute Code for Chg Fwd Diagnoses Schizophrenia F20.9 Major depression, recurrent, chronic F33.9 ALC (alcoholic liver cirrhosis) K70.30 Traumatic brain injury S06.9X9A Alcohol dependence F10.20
[2022-10-05 16:39] LABS: Glucose Point of Care 98 mg/dL (70-110)
[2022-10-05] MEDS: LORazepam 2 mg/mL INJ 1 mL IVP (20:34)
[2022-10-05 20:49] LABS: Glucose Point of Care 127 mg/dL (70-110)
[2022-10-06] VITALS (7 sets, daily range): BP systolic 113–134; BP diastolic 69–90; PULSE 84–113; RESP 16–28; TEMP 36.8–37.2; O2SAT 92–96
[2022-10-06] MEDS: LORazepam 2 mg/mL INJ 1 mL 1 MG IVP ×2 (03:56→09:01)
[2022-10-06 05:50] LABS: Basophils # 0.1 10^3/uL (0.0-0.1); Basophils % 0.9 %; Eosinophils # 0.1 10^3/uL (0.0-0.8); Eosinophils % 2.5 %; Hemoglobin 12.7 g/dL (11.7-16.6); Lymphocytes # 0.8 10^3/uL (0.8-4.8); Mean Corpuscular HGB Conc 34.3 g/dL (30.0-36.0); Mean Corpuscular Hemoglobin 33.2 pg (28.0-34.0); Mean Corpuscular Volume 96.9 fl (80-94); Mean Platelet Volume 10.3 fL (7.4-10.4); Monocytes # 0.7 10^3/uL (0.2-0.9); Monocytes % 12.4 %; Neutrophils # 3.99 10^3/uL (1.8-7.7); Neutrophils % 69.8 %; Nucleated Red Blood Cells % 0 %; Platelet Count 140 10^3/cmm (130-400); Red Blood Count 3.82 10^6/uL (4.1-5.3); Red Cell Distribution Width 14.2 % (12.1-15.1); White Blood Count 5.7 10^3/uL (4.0-10.0)
[2022-10-06] MEDS: paliperidone ER 6 mg Tablet PO (05:52)
[2022-10-06 06:10] LABS: Alanine Aminotransferase 53 U/L (0-41); Albumin Level 2.5 g/dL (3.5-5.2); Alkaline Phosphatase 97 U/L (40-130); Anion Gap 12.1 (5-19); Aspartate Amino Transferase 195 U/L (0-40); Blood Urea Nitrogen 6 mg/dL (6-20); Calcium 7.5 mg/dL (8.5-10.5); Carbon Dioxide 25 mmol/L (22-29); Chloride 93 mmol/L (98-107); Globulin 3.8 g/dL (1.3-4.6); Glomerular Filtration Rate 228.6 mL/min (90-130); Glucose 92 mg/dL (65-115); Magnesium 1.7 mg/dL (1.7-2.3); Osmolality Calculated 259 mOsm/kg (285-295); Potassium 4.1 mmol/L (3.5-5.1); Sodium 126 mmol/L (136-145); Total Bilirubin 4.1 mg/dL (0.15-1.2); Total Protein 6.3 g/dL (6.6-8.7)
[2022-10-06 06:26] LABS: Glucose Point of Care 96 mg/dL (70-110)
[2022-10-06] MEDS: cefTRIAXone 2,000 MG in sodium chloride 0.9% (plus) 50 ML 100 MG IV (08:52)
[2022-10-06] MEDS: spironolactone 25 mg Tablet 100 MG PO (08:53)
[2022-10-06] MEDS: gabapentin 400 mg Capsule PO ×3 (08:53→20:46)
[2022-10-06] MEDS: folic acid 1 mg Tablet PO (08:53)
[2022-10-06] MEDS: thiamine 100 mg Tablet PO (08:53)
[2022-10-06] MEDS: citalopram 20 mg Tablet PO (08:53)
[2022-10-06] MEDS: multivitamin therapeutic Tablet 1 TAB PO (08:53)
[2022-10-06] MEDS: levETIRAcetam 500 mg Tablet 750 MG PO ×2 (08:54→17:26)
[2022-10-06 12:34] LABS: Glucose Point of Care 115 mg/dL (70-110)
--- NOTE | 2022-10-06 14:35 | PM.PN ---
Subjective Subjective: Reports no problems overnight. he was evaluated by psychiatry. Nursing reports that he has had some abdominal pain this morning, and he has been refusing several of his breathing treatments. Nursing reports that his CIWA score was 14, with tachycardia, elevated blood pressure, and anxiety. His HR has been in the 110-120 range. Vitals/I&O/Wt Last Vital Signs Temp 98.8 F 10/06/22 03:35 Pulse 113 H 10/06/22 12:00 Resp 16 10/06/22 12:00 BP 115/69 10/06/22 12:00 Pulse Ox 95 10/06/22 12:00 O2 Del Method Nasal Cannula 10/06/22 12:00 O2 Flow Rate 3 10/06/22 08:00 10/05/22 10/06/22 10/06/22 22:59 06:59 14:59 Intake Total 840 / 1710 650 / 650 Balance 840 / -8890 650 / 650 Weight last 48 hrs Weight 227 lb 6 oz Weight 190 lb Physical Exam Narrative: General: Cooperative patient in no apparent distress. He is resting quietly, does not converse much. Bedside sitter is in the room. HEENT: Normocephalic, Atraumatic. External ears normal. Nasal passages patent without drainage. MMM. Heart: RRR. Resp: LCTA. No respiratory distress, no use of accessory muscles. Abd: Rotund, distended, TTP throughout. Extremities: 1+ lower extremity edema. Skin: No rash or lesions on exposed areas. Neuro: No focal motor or sensory disturbance. Data 10/06/22 05:23 10/06/22 05:23 A&P Assessment and plan (1) Abdominal ascites: Patient with massive abdominal ascites He had paracentesis yesterday with 10 L pulled. He was given albumin afterwards. Hemoglobin is stable. Bilirubin is up slightly to 4.1, LFTs are otherwise improved today. Albumin was 2.5 this morning. Continue Aldactone. Recommend he continue fluid restriction 7704-5681 mls daily. Plan to reassess tomorrow any need to have an additional paracentesis. Continue ceftriaxone. (2) Hypoxia: Likely secondary to ascites, but tobacco dependency and probable COPD is also playing a role (3) COPD (chronic obstructive pulmonary disease): Continue DuoNebs and budesonide. He has been refusing his breathing treatments. I did encourage him to have these done as this may help with his overall respiratory status. (4) Nicotine dependence, unspecified, uncomplicated: Encourage abstinence (5) Suicidal ideation: Psychiatry consultation 96-hour hold (6) Controlled diabetes mellitus with hyperglycemia: Initiate sliding scale insulin Qualifiers: Diabetes mellitus type: type 2 Diabetes mellitus care home insulin use: without care home use Qualified Code(s): E11.65 - Type 2 diabetes mellitus with hyperglycemia (7) Essential (primary) hypertension: Continue lisinopril (8) Schizophrenia: Await medicine reconciliation, psychiatric consultation prior to starting medicines (9) Alcohol dependence: Patient did have an elevated CIWA score today to 14. Will start Ativan protocol. His vitals currently show he is tachycardic, and has been hypertensive intermittently. We will continue to monitor for signs of worsening withdrawal. Plan Code Status: Allow Natural IVF: None DVT PPx: SCD's GI PPx: None ABx: Rocephin Diet: Low-sodium Discharge plan: 96-hour hold Attestations Medical Necessity Statement*: Will need continued inpatient monitoring for abdominal ascites, alcohol withdrawal, suicidal ideation. Coding Level of Care Code Acute Code for [facility] Fwd Moderate MDM includes number and complexity of problems actively addressed during encounter, amount and/or complexity of data reviewed/ordered and described risk of complication, morbidity or mortality of management as documented Diagnoses Abdominal ascites R18.8 Hypoxia R09.02 COPD (chronic obstructive pulmonary disease) J44.9 Nicotine dependence, unspecified, uncomplicated F17.200 Suicidal ideation R45.851 Controlled diabetes mellitus with hyperglycemia E11.65 Diabetes mellitus type: type 2 Diabetes mellitus care home insulin use: without long term care phlebotomist use Essential (primary) hypertension I10 Schizophrenia F20.9 Alcohol dependence F10.20
[2022-10-06 16:52] LABS: Glucose Point of Care 118 mg/dL (70-110)
--- NOTE | 2022-10-06 19:09 | W.PM.NPUPNS ---
Subjective NPU Subjective: Patient presented today reporting that he is feeling pretty crappy. We had discussed the original plan of him coming down to the neuropsychiatric unit today being put off secondary to the issues he is having with his bladder and needing a Aleman. Additionally he is getting IV antibiotics for an upper respiratory infection. We agreed that we would monitor of the medical issues and see if and when a transfer to the neuropsychiatric unit was appropriate versus discharged to home. Mental Status Exam MSE Comments: This is an obese white male with hospital gown on with intermittent eye contact and poor grooming lying in his MedSur bed. Significant arriaza. He was cooperative with exam in mild to moderate distress. His speech was decreased rate and volume. Mood described as okay but I feel like crap. His affect was subdued. Thought process:linear, logical Thought content: Patient denied suicidal or homicidal ideation. There were no delusions reported or noted, he denied any auditory or visual hallucinations currently. Attention and concentration appeared intact and memory was mostly reliable but none were formally tested. The alert and oriented x3. Insight is impaired. His impulse control is impaired, His judgment is limited. Vitals/I&O/Wt Last Vital Signs Temp 98.9 F 10/06/22 18:56 Pulse 98 10/06/22 18:56 Resp 16 10/06/22 18:56 BP 134/90 10/06/22 18:56 Pulse Ox 96 10/06/22 18:56 O2 Del Method Room Air 10/06/22 18:56 O2 Flow Rate 3.5 10/06/22 16:00 10/06/22 10/06/22 10/06/22 06:59 14:59 22:59 Intake Total 650 / 650 Balance 650 / 650 Weight last 48 hrs Weight 103.136 kg Weight 86.183 kg Physical Exam Urinary Catheter Management: Aleman: Cath Placed During This Visit: yes Reason for Continuing Indwelling Catheter: Acute Urinary Retention or Obstruction Urinary Catheter Date of Insertion: 10/06/22 Urinary Catheter Time of Insertion: 13:00 Data NPU 10/07/22 05:31 10/07/22 05:31 A&P Assessment and plan (1) Schizophrenia: (2) Major depression, recurrent, chronic: (3) ALC (alcoholic liver cirrhosis): (4) Traumatic brain injury: (5) Alcohol dependence: Plan The patient is a 47-year-old white male with schizophrenia, major depressive disorder and alcohol dependence with continued drinking in the face of end-stage liver disease with continued ascites admitted with homicidal ideation with active medical problems including a cirrhotic liver. 1.? Continue current medications. 2.? Continue one-to-one while on MedSurg. 3.? [facility] protocol for alcohol withdrawal. 4. We will consider transfer to neuropsychiatric unit versus discharge tomorrow. Involuntary Hold Information 96 Hour Hold: 96 Hour Involuntary Admission: No 96 Hour Hold Ending Date: 06/12/22 96 Hour Hold Ending Time: 14:00 Attestations NPU Medical Necessity Statement*: N/A. But agree that inpatient hospitalization is medically necessary and the clinically appropriate intervention at this time. We will monitor medications and make changes as indicated with likely some length of stay 1-2 days. Coding Level of Care Code Acute Code for [facility] Fwd Diagnoses Schizophrenia F20.9 Major depression, recurrent, chronic F33.9 ALC (alcoholic liver cirrhosis) K70.30 Traumatic brain injury S06.9X9A Alcohol dependence F10.20
[2022-10-06] MEDS: LORazepam 2 mg/mL INJ 1 mL IVP (20:57)
[2022-10-06 21:12] LABS: Glucose Point of Care 115 mg/dL (70-110)
[2022-10-07] VITALS (7 sets, daily range): BP systolic 117–147; BP diastolic 72–92; PULSE 88–123; RESP 15–20; TEMP 36.7–37.2; O2SAT 90–95
[2022-10-07] MEDS: LORazepam 2 mg/mL INJ 1 mL IVP ×2 (01:31→08:59)
[2022-10-07] MEDS: paliperidone ER 6 mg Tablet PO (05:52)
[2022-10-07 06:22] LABS: Basophils # 0.1 10^3/uL (0.0-0.1); Basophils % 0.9 %; Eosinophils # 0.2 10^3/uL (0.0-0.8); Eosinophils % 2.9 %; Hematocrit 36.9 % (42.0-52.0); Hemoglobin 12.6 g/dL (11.7-16.6); Lymphocytes # 0.7 10^3/uL (0.8-4.8); Lymphocytes % 10.5 %; Mean Corpuscular HGB Conc 34.1 g/dL (30.0-36.0); Mean Corpuscular Hemoglobin 33.1 pg (28.0-34.0); Mean Corpuscular Volume 96.9 fl (80-94); Mean Platelet Volume 10.3 fL (7.4-10.4); Monocytes # 0.7 10^3/uL (0.2-0.9); Monocytes % 10.5 %; Neutrophils # 5.13 10^3/uL (1.8-7.7); Neutrophils % 74.8 %; Nucleated Red Blood Cells % 0 %; Platelet Count 143 10^3/cmm (130-400); Red Blood Count 3.81 10^6/uL (4.1-5.3); Red Cell Distribution Width 14.1 % (12.1-15.1); White Blood Count 6.9 10^3/uL (4.0-10.0)
[2022-10-07 06:30] LABS: Glucose Point of Care 96 mg/dL (70-110)
[2022-10-07 06:40] LABS: Alanine Aminotransferase 46 U/L (0-41); Albumin Level 2.3 g/dL (3.5-5.2); Alkaline Phosphatase 99 U/L (40-130); Anion Gap 12.1 (5-19); Aspartate Amino Transferase 167 U/L (0-40); Blood Urea Nitrogen 6 mg/dL (6-20); Calcium 8.1 mg/dL (8.5-10.5); Carbon Dioxide 24 mmol/L (22-29); Chloride 93 mmol/L (98-107); Globulin 4.2 g/dL (1.3-4.6); Glomerular Filtration Rate 228.6 mL/min (90-130); Glucose 96 mg/dL (65-115); Osmolality Calculated 257 mOsm/kg (285-295); Potassium 4.1 mmol/L (3.5-5.1); Sodium 125 mmol/L (136-145); Thyroid Stimulating Hormone 7.46 uIU/mL (0.27-4.20); Total Bilirubin 3.2 mg/dL (0.15-1.2); Total Protein 6.5 g/dL (6.6-8.7)
[2022-10-07] MEDS: cefTRIAXone 2,000 MG in sodium chloride 0.9% (plus) 50 ML 100 MG IV (08:53)
[2022-10-07] MEDS: gabapentin 400 mg Capsule PO (08:56)
[2022-10-07] MEDS: spironolactone 25 mg Tablet 100 MG PO (08:56)
[2022-10-07] MEDS: tamsulosin 0.4 mg Capsule PO (08:56)
[2022-10-07] MEDS: levETIRAcetam 500 mg Tablet 750 MG PO (08:56)
[2022-10-07] MEDS: oxyCODONE 5 mg IR Tab/Cap PO (08:56)
[2022-10-07] MEDS: thiamine 100 mg Tablet PO (08:56)
[2022-10-07] MEDS: folic acid 1 mg Tablet PO (08:56)
[2022-10-07] MEDS: citalopram 20 mg Tablet PO (08:57)
[2022-10-07] MEDS: multivitamin therapeutic Tablet 1 TAB PO (08:57)
[2022-10-07] MEDS: FUROsemide 10 mg/mL SDV 4mL 40 MG IVP (10:41)
--- NOTE | 2022-10-07 11:03 | P.PN_ITS ---
Subjective Subjective: Alcohol is 24 Most of TIPS procedure indicated for meld below 18 This morning is confused after getting Ativan He is on CIWA protocol I will try to get in touch with GI services to see if he would be an candidate for TIPS however I am not very optimistic, I have already spoken with Dr. Pendleton to see if we can get a peritoneal drain to prevent his visits in the ER for paracentesis every third day I will update Dr. Pendleton after talking with GI services at tertiary center Vitals/I&O/Wt Last Vital Signs Temp 98.4 F 10/07/22 08:00 Pulse 100 10/07/22 08:00 Resp 17 10/07/22 08:56 BP 147/92 10/07/22 08:00 Pulse Ox 95 10/07/22 08:00 O2 Del Method Nasal Cannula 10/07/22 08:00 O2 Flow Rate 3 10/07/22 08:00 10/06/22 10/07/22 10/07/22 22:59 06:59 14:59 Intake Total 600 / 1250 310 / 310 Output Total 400 / 400 Balance 200 / 850 310 / 310 Physical Exam Narrative: Anasarca Confused Wheezing with crackles Currently on 3 L Patient has tenderness to palpation right upper quadrant area Neuro exam limited Currently on 2 L Muscle mass loss Unkept appearance Not able to follow commands because of Ativan given Urinary Catheter Management: Aleman: Cath Placed During This Visit: yes Reason for Continuing Indwelling Catheter: Accurate Measurement of Urinary Output in Critically Ill Patients Urinary Catheter Date of Insertion: 10/06/22 Urinary Catheter Time of Insertion: 13:00 Data 10/07/22 05:31 10/07/22 05:31 A&P Assessment and plan (1) COPD (chronic obstructive pulmonary disease): (2) Hypoxia: (3) Suicidal ideation: (4) Essential (primary) hypertension: (5) Controlled diabetes mellitus with hyperglycemia: Qualifiers: Diabetes mellitus type: type 2 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: without buttermilk drier operator use Qualified Code(s): E11.65 - Type 2 diabetes mellitus with hyperglycemia (6) Seizure disorder: (7) ALC (alcoholic liver cirrhosis): (8) Abdominal ascites: (9) Cirrhosis of liver: (10) Alcohol dependence: (11) Schizophrenia: (12) Acne rosacea: Plan Persistent ascites Anasarca Patient is actively drinking alcohol, 3 pack/day smoker MELD score is 24, not an ideal candidate for TIPS, will touch base with tertiary center GI services Patient requested for hospice/palliative care when he got admitted however I requested psych consultation to rule out depression and other causes that would deem him incapacitated His is admitted to Neuropsych Unit Patient currently is on CIWA protocol for alcohol withdrawal He has history of alcohol withdrawal seizures as well Currently he is on ceftriaxone for his ascites prophylactic regimen along IV Lasix and spironolactone Aleman catheter has been placed DNR/DNI Cardiac diet Continue folic acid Low-sodium diet with fluid restriction Patient is a 96-hour hold which will end on 1/3 Fluid overload, persistent ascites, hypoxia related to inability to expand his lungs, DuoNeb treatment along Lasix, keeping head side of the bed elevated Patient carries guarded prognosis Attestations Medical Necessity Statement*: Continue medical management Diagnoses COPD (chronic obstructive pulmonary disease) J44.9 Hypoxia R09.02 Suicidal ideation R45.851 Essential (primary) hypertension I10 Controlled diabetes mellitus with hyperglycemia E11.65 Diabetes mellitus type: type 2 Diabetes mellitus [facility] insulin use: without [facility] use Seizure disorder G40.909 ALC (alcoholic liver cirrhosis) K70.30 Abdominal ascites R18.8 Cirrhosis of liver K74.60 Alcohol dependence F10.20 Schizophrenia F20.9 Acne rosacea L71.9
[2022-10-07 11:35] LABS: Glucose Point of Care 113 mg/dL (70-110)
[2022-10-07 11:56] LABS: INR 1.35 (0.8-1.2)
[2022-10-07 11:57] LABS: Fibrinogen 239 mg/dL (174-498); Partial Thromboplastin Time 38.6 SECONDS (23.9-36.7)
[2022-10-07 12:06] LABS: D Dimer 7.38 ug/mIFEU (0-0.59)
--- NOTE | 2022-10-07 12:12 | P.NPUPN_ITS ---
Subjective NPU Subjective: Patient presented today not speaking much. He was lethargic, mostly not speaking or responding. We agreed that we would monitor of the medical issues and see if and when a transfer to the neuropsychiatric unit was appropriate versus discharged to home. Mental Status Exam MSE Comments: This is an obese white male with hospital gown on with intermittent eye contact and poor grooming lying in his MedSurg bed. Significant arriaza. He was cooperative with exam in mild to moderate distress. His speech was decreased rate and volume. Mood not described. His affect was subdued. Thought proces s:linear, logical Thought content: Patient denied suicidal or homicidal ideation. There were no delusions reported or noted, he denied any auditory or visual hallucinations currently. Attention and concentration appeared intact and memory was mostly reliable but none were formally tested. The alert and oriented x3. Insight is impaired. His impulse control is impaired, His judgment is limited. Vitals/I&O/Wt Last Vital Signs Temp 98.4 F 10/07/22 11:58 Pulse 123 H 10/07/22 11:58 Resp 18 10/07/22 11:58 BP 135/89 10/07/22 11:58 Pulse Ox 90 10/07/22 11:58 O2 Del Method Nasal Cannula 10/07/22 11:58 O2 Flow Rate 3 10/07/22 11:58 Physical Exam Urinary Catheter Management: Aleman: Cath Placed During This Visit: yes Reason for Continuing Indwelling Catheter: Accurate Measurement of Urinary Output in Critically Ill Patients Urinary Catheter Date of Insertion: 10/06/22 Urinary Catheter Time of Insertion: 13:00 Data NPU 10/07/22 05:31 10/07/22 05:31 A&P Assessment and plan (1) Schizophrenia: (2) Major depression, recurrent, chronic: (3) ALC (alcoholic liver cirrhosis): (4) Traumatic brain injury: (5) Alcohol dependence: Plan The patient is a 47-year-old white male with schizophrenia, major depressive disorder and alcohol dependence with continued drinking in the face of end-stage liver disease with continued ascites admitted with homicidal ideation with active medical problems including a cirrhotic liver. 1.? Continue current medications. 2.? Continue one-to-one while on MedSurg. 3.? [facility] protocol for alcohol withdrawal. 4. We will consider transfer to neuropsychiatric unit versus discharge tomorrow. Involuntary Hold Information 96 Hour Hold: 96 Hour Involuntary Admission: No 96 Hour Hold Ending Date: 06/12/22 96 Hour Hold Ending Time: 14:00 Attestations NPU Medical Necessity Statement*: N/A. But agree that inpatient hospitalization is medically necessary and the clinically appropriate intervention at this time. We will monitor medications and make changes as indicated with likely some length of stay 1-2 days. Coding Level of Care Code Acute Code for [facility] Fwd Diagnoses Schizophrenia F20.9 Major depression, recurrent, chronic F33.9 ALC (alcoholic liver cirrhosis) K70.30 Traumatic brain injury S06.9X9A Alcohol dependence F10.20
[2022-10-07 17:11] LABS: Glucose Point of Care 99 mg/dL (70-110)
[2022-10-07 22:14] LABS: Glucose Point of Care 108 mg/dL (70-110)
[2022-10-08] VITALS (11 sets, daily range): BP systolic 111–134; BP diastolic 63–86; PULSE 106–113; RESP 18–22; TEMP 36.4–37.2; O2SAT 91–95
--- NOTE | 2022-10-08 05:41 | PC.NURSE ---
Paient complaining of hallucinations and shakiness. Nurse notified and vitals taken. 1:1 sitter in room.
[2022-10-08] MEDS: paliperidone ER 6 mg Tablet PO (05:56)
[2022-10-08] MEDS: LORazepam 2 mg/mL INJ 1 mL IVP (05:58)
[2022-10-08 06:59] LABS: Glucose Point of Care 107 mg/dL (70-110)
[2022-10-08] MEDS: levETIRAcetam 500 mg Tablet 750 MG PO ×2 (08:51→17:53)
[2022-10-08] MEDS: oxyCODONE 5 mg IR Tab/Cap PO (08:51)
[2022-10-08] MEDS: spironolactone 25 mg Tablet 100 MG PO (08:51)
[2022-10-08] MEDS: folic acid 1 mg Tablet PO (08:52)
[2022-10-08] MEDS: thiamine 100 mg Tablet PO (08:52)
[2022-10-08] MEDS: cefTRIAXone 2,000 MG in sodium chloride 0.9% (plus) 50 ML 100 MG IV (09:04)
[2022-10-08] MEDS: FUROsemide 10 mg/mL SDV 4mL 40 MG IVP (10:24)
[2022-10-08 11:15] LABS: Glucose Point of Care 127 mg/dL (70-110)
--- NOTE | 2022-10-08 11:20 | PC.SOCIAL ---
IMM Update pg 2 of IMM not updated w/ patient @ this time as he is on 96 hour hold and not anticipating DC. Copy left @ bedside and Copy placed in chart dated and initialed.
--- NOTE | 2022-10-08 11:49 | PM.PN ---
Subjective Subjective: This morning patient was able to answer a few questions Currently on 3 L of nasal cannula Abdomen less tender today Patient was not able to take his medication yesterday because of extreme drowsiness Vitals/I&O/Wt Last Vital Signs Temp 98.9 F 10/08/22 08:00 Pulse 108 H 10/08/22 08:00 Resp 22 H 10/08/22 08:51 BP 131/86 10/08/22 08:00 Pulse Ox 93 10/08/22 08:00 O2 Del Method Nasal Cannula 10/08/22 08:41 O2 Flow Rate 3 10/08/22 08:41 10/07/22 10/08/22 10/08/22 22:59 06:59 14:59 Intake Total 240 / 670 290 / 290 Output Total 300 / 1400 150 / 1550 Balance -300 / -970 90 / -880 290 / 290 Physical Exam Narrative: Generalized anasarca Fatigued and lethargic Able to answer few questions Abdomen less tender today as compared to yesterday No facial grimacing when I was palpating his abdomen Umbilical hernia Muscle mass loss Currently on 3 L Crackles noted No signs of focal deficits Urinary Catheter Management: Aleman: Cath Placed During This Visit: yes Reason for Continuing Indwelling Catheter: Accurate Measurement of Urinary Output in Critically Ill Patients Urinary Catheter Date of Insertion: 10/06/22 Urinary Catheter Time of Insertion: 13:00 Data 10/07/22 05:31 10/07/22 05:31 A&P Assessment and plan (1) COPD (chronic obstructive pulmonary disease): (2) Hypoxia: (3) Suicidal ideation: (4) Essential (primary) hypertension: (5) Controlled diabetes mellitus with hyperglycemia: Qualifiers: Diabetes mellitus type: type 2 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: without dedicated intermodal truck driver use Qualified Code(s): E11.65 - Type 2 diabetes mellitus with hyperglycemia (6) Seizure disorder: (7) DM neuropathy, painful: (8) Mixed hyperlipidemia: (9) Acne rosacea: (10) Psoriasis: (11) Schizophrenia: (12) Major depression, recurrent, chronic: (13) Cirrhosis of liver: (14) Alcohol dependence: (15) ALC (alcoholic liver cirrhosis): (16) Abdominal ascites: Plan Decompensated liver cirrhosis Alcohol dependence Recurrent paracentesis for abdominal ascites Patient is agreeable for peritoneal drain if needed I do not think he will be a good candidate for TIPS procedure for his MELD score above 20 Continue Lasix and spironolactone along lactulose Patient is not experiencing severe alcohol withdrawal today I will watch him on CIWA protocol today 1 more day on MedSurg then he will be transferred to Neuropsych Unit he still on 96-hour hold for suicidal ideation DNR/DNI Cardiac diet Continue thiamine folic acid and Keppra Hypoxia requiring 3 L of oxygen related to hypoventilation that might hinder his stay in NPU Spoke with his nurse, continue Keppra, thiamine, folic acid and diuretic Attestations Medical Necessity Statement*: Continue 96-hour hold Diagnoses COPD (chronic obstructive pulmonary disease) J44.9 Hypoxia R09.02 Suicidal ideation R45.851 Essential (primary) hypertension I10 Controlled diabetes mellitus with hyperglycemia E11.65 Diabetes mellitus type: type 2 Diabetes mellitus fdc insulin use: without dedicated intermodal truck driver use Seizure disorder G40.909 DM neuropathy, painful E11.40 Mixed hyperlipidemia E78.2 Acne rosacea L71.9 Psoriasis L40.9 Schizophrenia F20.9 Major depression, recurrent, chronic F33.9 Cirrhosis of liver K74.60 Alcohol dependence F10.20 ALC (alcoholic liver cirrhosis) K70.30 Abdominal ascites R18.8
[2022-10-08] MEDS: lactulose oral liq 20 gm/30 mL UDC 30 GM PO (12:41)
[2022-10-08] MEDS: gabapentin 400 mg Capsule PO ×2 (15:50→21:02)
[2022-10-08 17:09] LABS: Glucose Point of Care 143 mg/dL (70-110)
--- NOTE | 2022-10-08 17:22 | P.NPUPN_ITS ---
Subjective NPU Subjective: Patient presented today with continued limited communication. He continues to deny any lethality in his limited conversation and we discussed the likelihood of him not coming down to the neuropsychiatric unit after he is medically cleared but the question is where will he go as he does not seem to be in a position to be self-sufficient at this point if he were discharged. Mental Status Exam MSE Comments: This is an obese white male with hospital gown on with intermittent eye contact and poor grooming lying in his MedSurg bed. Significant arraiza. He was cooperative with exam in mild to moderate distress. His speech was decreased rate and volume. Mood not described. His affect was subdued. Thought process:linear, logical Thought content: Patient denied suicidal or homicidal ideation. There were no delusions reported or noted, he denied any auditory or visual hallucinations currently. Attention and concentration appeared intact and memory was mostly reliable but none were formally tested. The alert and oriented x3. Insight is impaired. His impulse control is impaired, His judgment is limited. Vitals/I&O/Wt Last Vital Signs Temp 98.6 F 10/08/22 16:00 Pulse 111 H 10/08/22 16:00 Resp 18 10/08/22 16:00 BP 129/81 10/08/22 16:00 Pulse Ox 93 10/08/22 16:00 O2 Del Method Nasal Cannula 10/08/22 16:00 O2 Flow Rate 3 10/08/22 12:00 10/08/22 10/08/22 10/08/22 06:59 14:59 22:59 Intake Total 240 / 670 290 / 290 Output Total 150 / 1550 1300 / 1300 Balance 90 / -880 -1010 / -1010 Physical Exam Urinary Catheter Management: Aleman: Cath Placed During This Visit: yes Reason for Continuing Indwelling Catheter: Accurate Measurement of Urinary Output in Critically Ill Patients Urinary Catheter Date of Insertion: 10/06/22 Urinary Catheter Time of Insertion: 13:00 Data NPU 10/10/22 04:35 10/10/22 04:35 A&P Assessment and plan (1) Schizophrenia: (2) Major depression, recurrent, chronic: (3) ALC (alcoholic liver cirrhosis): (4) Traumatic brain injury: (5) Alcohol dependence: Plan The patient is a 47-year-old white male with schizophrenia, major depressive disorder and alcohol dependence with continued drinking in the face of end-stage liver disease with continued ascites admitted with homicidal ideation with active medical problems including a cirrhotic liver. 1.? Continue current medications. 2.? Continue one-to-one while on MedSurg. 3.? [facility] protocol for alcohol withdrawal. 4. We will consider transfer to neuropsychiatric unit versus discharge when he is medically cleared. Involuntary Hold Information 96 Hour Hold: 96 Hour Involuntary Admission: No 96 Hour Hold Ending Date: 06/12/22 96 Hour Hold Ending Time: 14:00 Attestations NPU Medical Necessity Statement*: N/A. But agree that inpatient hospitalization is medically necessary and the clinically appropriate intervention at this time. We will monitor medications and make changes as indicated with likely some length of stay 1-2 days. Coding Level of Care Code Acute Code for [facility] Fwd Diagnoses Schizophrenia F20.9 Major depression, recurrent, chronic F33.9 ALC (alcoholic liver cirrhosis) K70.30 Traumatic brain injury S06.9X9A Alcohol dependence F10.20
[2022-10-08] MEDS: insulin lispro 100 unit/1 mL SUBCUT (17:54)
[2022-10-08 20:12] LABS: Glucose Point of Care 128 mg/dL (70-110)
[2022-10-09] VITALS (11 sets, daily range): BP systolic 100–135; BP diastolic 64–78; PULSE 96–104; RESP 18–21; TEMP 36.6–36.8; O2SAT 91–95
[2022-10-09 04:56] LABS: Alanine Aminotransferase 41 U/L (0-41); Albumin Level 2.4 g/dL (3.5-5.2); Alkaline Phosphatase 115 U/L (40-130); Aspartate Amino Transferase 136 U/L (0-40); Blood Urea Nitrogen 10 mg/dL (6-20); Carbon Dioxide 27 mmol/L (22-29); Chloride 92 mmol/L (98-107); Globulin 4.2 g/dL (1.3-4.6); Glomerular Filtration Rate 228.6 mL/min (90-130); Glucose 88 mg/dL (65-115); Osmolality Calculated 264 mOsm/kg (285-295); Sodium 128 mmol/L (136-145); Total Bilirubin 3.6 mg/dL (0.15-1.2); Total Protein 6.6 g/dL (6.6-8.7)
[2022-10-09 05:03] LABS: Anion Gap 13.2 (5-19); Potassium 4.2 mmol/L (3.5-5.1)
[2022-10-09] MEDS: paliperidone ER 6 mg Tablet PO (05:51)
[2022-10-09 07:03] LABS: Glucose Point of Care 129 mg/dL (70-110)
[2022-10-09] MEDS: ipratropium-albuterol 3 mL Neb INHALATION ×2 (07:37→21:12)
[2022-10-09] MEDS: budesonide 0.5 mg/2 mL Neb INHALATION ×2 (07:37→21:12)
[2022-10-09] MEDS: spironolactone 25 mg Tablet 100 MG PO (09:18)
[2022-10-09] MEDS: tamsulosin 0.4 mg Capsule PO (09:19)
[2022-10-09] MEDS: levETIRAcetam 500 mg Tablet 750 MG PO ×2 (09:19→17:24)
[2022-10-09] MEDS: gabapentin 400 mg Capsule PO ×3 (09:19→19:59)
[2022-10-09] MEDS: cefTRIAXone 2,000 MG in sodium chloride 0.9% (plus) 50 ML 50 MG IV (09:20)
[2022-10-09] MEDS: thiamine 100 mg Tablet PO (09:20)
[2022-10-09] MEDS: citalopram 20 mg Tablet PO (09:20)
[2022-10-09] MEDS: folic acid 1 mg Tablet PO (09:20)
[2022-10-09] MEDS: multivitamin therapeutic Tablet 1 TAB PO (09:44)
[2022-10-09] MEDS: lactulose oral liq 20 gm/30 mL UDC 30 GM PO (09:48)
[2022-10-09] MEDS: FUROsemide 10 mg/mL SDV 4mL 40 MG IVP (09:48)
[2022-10-09 11:14] LABS: Glucose Point of Care 126 mg/dL (70-110)
--- NOTE | 2022-10-09 11:24 | P.PN_ITS ---
Subjective Subjective: Spoke with Dr. Zheng for peritoneal drain We will keep patient n.p.o. after midnight This morning patient is stating that he is still feeling bad and miserable Currently on 3 L Willing to take lactulose this morning Vitals/I&O/Wt Last Vital Signs Temp 98.2 F 10/09/22 07:55 Pulse 101 H 10/09/22 07:55 Resp 20 H 10/09/22 07:55 BP 118/78 10/09/22 07:55 Pulse Ox 93 10/09/22 07:55 O2 Del Method Nasal Cannula 10/09/22 07:55 O2 Flow Rate 3 10/09/22 07:38 10/08/22 10/09/22 10/09/22 22:59 06:59 14:59 Intake Total 120 / 410 170 / 170 Output Total 450 / 1750 Balance 120 / -890 -450 / -1340 170 / 170 Physical Exam Narrative: Awake and alert however drowsy Generalized anasarca Nontender abdomen Massive ascites Umbilical hernia Muscle mass loss Able to follow commands Acne rosacea on face Skin psoriasis Currently on 3 L Urinary Catheter Management: Aleman: Cath Placed During This Visit: yes Reason for Continuing Indwelling Catheter: Other Urinary Catheter Date of Insertion: 10/06/22 Urinary Catheter Time of Insertion: 13:00 Data 10/07/22 05:31 10/09/22 04:04 A&P Assessment and plan (1) Acne rosacea: (2) Mixed hyperlipidemia: (3) Seizure disorder: (4) Controlled diabetes mellitus with hyperglycemia: Qualifiers: Diabetes mellitus type: type 2 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 Zheng We will keep him n.p.o. after midnight INR 1.[address] Zheng/general surgery Hypoxia related to hypoventilation due to massive ascites Currently on 3 L Suicidal ideation on 96-hour hold If he is cleared by psych by tomorrow I will discharge him after. With home health services If he wants to do well palliative care down the road we will give him referral manager market updated DNR/DNI Continue ceftriaxone as SBP prophylaxis For ascites continue Lasix and spironolactone Hyponatremia related to hypervolemia: Slowly improving Attestations Medical Necessity Statement*: Discharge tomorrow after the drain Diagnoses Acne rosacea L71.9 Mixed hyperlipidemia E78.2 Seizure disorder G40.909 Controlled diabetes mellitus with hyperglycemia E11.65 Diabetes mellitus type: type 2 Diabetes mellitus stitch bonding machine drawer in insulin use: without stitch bonding machine drawer in use Essential (primary) hypertension I10 Suicidal ideation R45.851 Hypoxia R09.02 COPD (chronic obstructive pulmonary disease) J44.9 Cirrhosis of liver K74.60 Alcohol dependence F10.20 Major depression, recurrent, chronic F33.9 ALC (alcoholic liver cirrhosis) K70.30 Abdominal ascites R18.8
[2022-10-09 16:58] LABS: Glucose Point of Care 119 mg/dL (70-110)
--- NOTE | 2022-10-09 17:03 | P.CONIM_ITS ---
Providers/Reason For Consult Consulting Physician/Specialty*: Dr. Tapan Zheng, DO/General surgery Reason for Consult*: Liver failure Attending Physician: Judith Graves MD Primary Care Provider: YENI Perez History of Present Illness History of Present Illness Reinaldo Flores is a 47 year old male who is in liver failure due to alcoholism. He is coming to the hospital every few days for paracentesis. Medicine consulted me for possible peritoneal drainage catheter. Review of Systems General: Reports: 10 or more systems reviewed and unremarkable except in HPI and below Medications/Allergies Home Medications Medication Instructions Recorded Confirmed Last Taken Type levetiracetam 750 mg tablet 750 mg PO BID 30 days #60 tabs 06/12/22 10/05/22 09/28/22 Rx lactulose 10 gram/15 mL oral 30 ml PO TID PRN Constipation 07/13/22 10/05/22 09/28/22 History solution spironolactone 100 mg tablet 100 mg PO DAILY 07/13/22 10/05/22 09/28/22 History citalopram 20 mg tablet (Celexa) 20 mg PO DAILY #30 tabs 08/10/22 10/05/22 09/28/22 Rx paliperidone 6 mg tablet,extended 6 mg PO QAM #14 tabs 08/10/22 10/05/22 09/28/22 Rx release 24 hr (Invega) paliperidone palmitate 234 mg/1.5 234 mg (1.5 mL) IM Q30D #1.5 mL 08/10/22 10/05/22 09/28/22 Rx mL intramuscular syringe (Invega Sustenna) gabapentin 400 mg capsule 400 mg PO TID 30 days #90 caps 08/16/22 10/05/22 09/28/22 Rx lisinopril 20 mg tablet 20 mg PO DAILY 90 days #90 tabs 08/16/22 10/05/22 09/28/22 Rx metformin 500 mg tablet,extended 500 mg PO BID 90 days #180 tabs 08/16/22 10/05/22 09/28/22 Rx release 24 hr trazodone 50 mg tablet 50 mg PO BEDTIME 08/21/22 10/05/22 09/28/22 History Allergies Allergy/AdvReac Type Severity Reaction Status Date / Time clozapine [From Clozaril] AdvReac Severe Lowered Verified 10/04/22 22:18 his WBC he says divalproex sodium AdvReac Severe swelling Verified 10/04/22 22:18 [From Depakote] haloperidol [From Haldol] AdvReac Severe swelling Verified 10/04/22 22:18 nitroglycerin AdvReac Severe Stopped Verified 10/04/22 22:18 heart Bee stings Allergy Severe Swelling & Uncoded 10/04/22 22:18 breathing problems, Anaphylactic shock Current Medications Generic Name Dose Route Start Last Admin Trade Name Freq PRN Reason Stop Dose Admin Albuterol/Ipratropium 3 ml 10/05/22 08:00 10/09/22 21:12 Ipratropium-Albuterol 3 Ml Neb INHALATION 3 ml QID.RESPIRATORY SAMANTA Administration Budesonide 0.5 mg 10/05/22 08:00 10/09/22 21:12 Budesonide 0.5 Mg/2 Ml Neb INHALATION 0.5 mg BID.RESPIRATORY SAMANTA Administration Citalopram Hydrobromide 20 mg 10/05/22 09:00 10/09/22 09:20 Citalopram 20 Mg Tablet PO 20 mg DAILY SAMANTA Administration Folic Acid 1 mg 10/06/22 09:00 10/09/22 09:20 Folic Acid 1 Mg Tablet PO 1 mg DAILY SAMANTA Administration Furosemide 40 mg 10/07/22 10:15 10/09/22 09:48 Furosemide 10 Mg/Ml Sdv 4ml IVP 40 mg Q24H SAMANTA Administration Gabapentin 400 mg 10/05/22 09:00 10/09/22 19:59 Gabapentin 400 Mg Capsule PO 400 mg TID SAMANTA Administration Ceftriaxone Sodium 2,000 mg/ 50 mls @ 100 mls/hr 10/05/22 08:45 10/09/22 11:06 Sodium Chloride IV Infused Q24H SAMANTA Infusion Protocol Insulin Human Lispro 0 unit 10/05/22 08:00 10/09/22 20:11 Insulin Lispro 100 Unit/1 Ml SUBCUT Not Given WM&BEDTIME SAMANTA Protocol Lactulose 30 gm 10/08/22 12:00 10/09/22 09:48 Lactulose Oral Liq 20 Gm/30 Ml Udc PO 30 gm DAILY SAMANTA Administration Levetiracetam 750 mg 10/05/22 09:00 10/09/22 17:24 Levetiracetam 500 Mg Tablet PO 750 mg BID SAMANTA Administration Lorazepam 2 mg 10/06/22 13:14 10/08/22 05:58 Lorazepam 2 Mg/Ml Inj 1 Ml IVP 2 mg Q4H PRN Administration WITHDRAWAL Protocol Multivitamins Therapeutic 1 tab 10/06/22 09:00 10/09/22 09:44 Multivitamin Therapeutic Tablet PO 1 tab DAILY SAMANTA Administration Oxycodone HCl 5 mg 10/06/22 11:09 10/09/22 17:24 Oxycodone 5 Mg Ir Tab/Cap PO 5 mg Q8H PRN Administration MODERATE PAIN Paliperidone 6 mg 10/05/22 06:00 10/10/22 05:09 Paliperidone Er 6 Mg Tablet PO 6 mg QAM SAMANTA Administration Spironolactone 100 mg 10/05/22 09:00 10/09/22 09:18 Spironolactone 25 Mg Tablet PO 100 mg DAILY SAMANTA Administration Tamsulosin HCl 0.4 mg 10/07/22 09:00 10/09/22 09:19 Tamsulosin 0.4 Mg Capsule PO 0.4 mg DAILY SAMANTA Administration Thiamine Mononitrate 100 mg 10/06/22 09:00 10/09/22 09:20 Thiamine 100 Mg Tablet PO 100 mg DAILY SAMANTA Administration PFSH Acute PFSH: Medical History Acne rosacea ALC (alcoholic liver cirrhosis) Alcohol dependence Bipolar disorder Controlled diabetes mellitus with hyperglycemia DM neuropathy, painful Essential (primary) hypertension History of alcohol abuse daily use of hard liquor History of coronary artery disease History of CVA (cerebrovascular accident) 2009 Right side weakness due to a bleed History of memory loss History of schizophrenia Mixed hyperlipidemia Nicotine dependence, cigarettes, uncomplicated Psoriasis Psychiatric care Seizure disorder Traumatic brain injury Surgical History History of cardiac catheterization ~2014 done in [place], reports they discussed possible stent but he declined History of colonoscopy with polypectomy 2016 History of esophagogastroduodenoscopy (EGD) History of eye surgery Family History Other Dementia Diabetes Hypertension Lung disease Psychiatric illness Stroke Denies family history of Chronic kidney disease (CKD) Anesthesia complication Bleeding disorder Cancer Social History (Reviewed 05/03/23 @ 08:04 by JASON Blum Smoking and tobacco status: current every day smoker cigarettes Packs smoked per day: 2.5 Second hand smoke exposure: Yes Alcohol intake: current Alcohol intake frequency: 3 or more drinks per day Alcohol type: hard liquor Substance/Drug Use: never Adopted: No Caregiver/support person: Yes Lives independently: No Household members: friend(s) and caregiver Housing: Manufactured/Mobile home Marital status: Number of children: 8 service: No Current occupational status: disabled Pets and animals: Yes Do you think of yourself as: Straight/Heterosexual Current gender identity: Male Vitals/I&O/Wt Last Vital Signs Temp 98.0 F 10/10/22 04:00 Pulse 91 10/10/22 05:20 Resp 18 10/10/22 04:00 BP 94/54 10/10/22 04:00 Pulse Ox 91 10/10/22 04:00 O2 Del Method Nasal Cannula 10/10/22 04:00 O2 Flow Rate 3 10/09/22 20:00 10/09/22 10/10/22 10/10/22 22:59 06:59 14:59 Intake Total 840 / 1250 Output Total 350 / 350 250 / 600 Balance 490 / 900 -250 / 650 Physical Exam Narrative: General : Patient is well developed , no acute distress, oriented x3 Head : Normal cephalic, a-traumatic. Ears : Pinnae and external canal are normal. Hearing is normal. Eyes : PERRLA, Sclera and injection are normal. No conjunctival discharge. Nose : Mucous membranes are without erythema. Throat : buccal mucosa is normal, gums are without significant recession or hypertrophy. Lungs : Equal chest rise bilaterally, no use of accessory muscles, trachea is midline. Cor : Rate and rhythm are normal. Abdomen : Soft, distended, NT, no g/r/m Extremities : No edema, no cyanosis or clubbing, dorsalis pedis pulses are present bilaterally, non-tender to palpation of calves. Upper extremities are normal bilaterally. Back : non-tender to palpation, no CVA tenderness. Neuro : CN II - XII intact, Upper and lower extremities have equal and full strength Urinary Catheter Management: Aleman: Cath Placed During This Visit: yes Reason for Continuing Indwelling Catheter: Accurate Measurement of Urinary Output in Critically Ill Patients Urinary Catheter Date of Insertion: 10/06/22 Urinary Catheter Time of Insertion: 13:00 Data 10/10/22 04:35 10/10/22 04:35 A&P Assessment and plan (1) Cirrhosis of liver: (2) Abdominal ascites: (3) Alcohol dependence: Plan Laparoscopic peritoneal drainage catheter placement The risk and benefits of procedure, including but not limited to, bleeding, infection, scar, numbness, pain, damage to surround structures, conversion to an open procedure, malfunction of the catheter, or explained the patient. He is understanding of the risks and wishes to proceed. Coding Level of Care Code Acute Code for Chg Fwd Diagnoses Cirrhosis of liver K74.60 Abdominal ascites R18.8 Alcohol dependence F10.20
[2022-10-09] MEDS: oxyCODONE 5 mg IR Tab/Cap PO (17:24)
--- NOTE | 2022-10-09 18:34 | W.PM.NPUPNS ---
Subjective NPU Subjective: Patient presented today being a little more coherent. He seemed to suggest that he did go home and his would take care of him. We discussed the fact that he seems like he and his a little more help than one person could be expected to provide given his difficulties getting to the bathroom etc. We discussed needing to speak with her to see if she understands how limited he appears at this point. Mental Status Exam MSE Comments: This is an obese white male with hospital gown on with intermittent eye contact and poor grooming [facility] Significant arriaza. He was cooperative with exam in mild to moderate distress. His speech was decreased rate and volume. Mood not described. His affect was subdued. Thought process:linear, logical Thought content: Patient denied suicidal or homicidal ideation. There were no delusions reported or noted, he denied any auditory or visual hallucinations currently. Attention and concentration appeared intact and memory was mostly reliable but none were formally tested. The alert and oriented x3. Insight is impaired. His impulse control is impaired, His judgment is limited. Vitals/I&O/Wt Last Vital Signs Temp 97.9 F 10/09/22 19:53 Pulse 101 H 10/09/22 19:53 Resp 18 10/09/22 19:53 BP 105/65 10/09/22 19:53 Pulse Ox 94 10/09/22 19:53 O2 Del Method Nasal Cannula 10/09/22 20:00 O2 Flow Rate 3 10/09/22 20:00 10/09/22 10/09/22 10/10/22 14:59 22:59 06:59 Intake Total 410 / 410 Output Total Balance 410 / 410 Physical Exam Urinary Catheter Management: Aleman: Cath Placed During This Visit: yes Reason for Continuing Indwelling Catheter: Accurate Measurement of Urinary Output in Critically Ill Patients Urinary Catheter Date of Insertion: 10/06/22 Urinary Catheter Time of Insertion: 13:00 Data NPU 10/10/22 04:35 10/10/22 04:35 A&P Assessment and plan (1) Schizophrenia: (2) Major depression, recurrent, chronic: (3) ALC (alcoholic liver cirrhosis): (4) Traumatic brain injury: (5) Alcohol dependence: Plan The patient is a 47-year-old white male with schizophrenia, major depressive disorder and alcohol dependence with continued drinking in the face of end-stage liver disease with continued ascites admitted with homicidal ideation with active medical problems including a cirrhotic liver. 1.? Continue current medications. 2.? Continue one-to-one while on MedSurg. Her hold is set to tomorrow. 3.? [facility] protocol for alcohol withdrawal. 4. We will consider transfer to neuropsychiatric unit versus discharge when he is medically cleared. Involuntary Hold Information 96 Hour Hold: 96 Hour Involuntary Admission: No 96 Hour Hold Ending Date: 06/12/22 96 Hour Hold Ending Time: 14:00 Attestations NPU Medical Necessity Statement*: N/A. Please see primary team note for medical necessity as inpatient psychiatric care seems less warranted. We will monitor medications and make changes as indicated with likely some length of stay 1-2 days. Coding Level of Care Code Acute Code for Chg Fwd Diagnoses Schizophrenia F20.9 Major depression, recurrent, chronic F33.9 ALC (alcoholic liver cirrhosis) K70.30 Traumatic brain injury S06.9X9A Alcohol dependence F10.20
[2022-10-09 20:11] LABS: Glucose Point of Care 102 mg/dL (70-110)
[2022-10-10] VITALS (26 sets, daily range): BP systolic 94–152; BP diastolic 54–88; PULSE 87–101; RESP 16–20; TEMP 36.4–37.4; O2SAT 90–99
[2022-10-10] MEDS: paliperidone ER 6 mg Tablet PO (05:09)
[2022-10-10 05:12] LABS: Basophils # 0.1 10^3/uL (0.0-0.1); Basophils % 1.3 %; Eosinophils # 0.3 10^3/uL (0.0-0.8); Eosinophils % 4.4 %; Hematocrit 36.1 % (42.0-52.0); Hemoglobin 11.9 g/dL (11.7-16.6); Lymphocytes # 0.8 10^3/uL (0.8-4.8); Lymphocytes % 13.9 %; Mean Corpuscular Hemoglobin 33.1 pg (28.0-34.0); Mean Corpuscular Volume 100.3 fl (80-94); Mean Platelet Volume 9.8 fL (7.4-10.4); Monocytes # 0.9 10^3/uL (0.2-0.9); Monocytes % 14.4 %; Neutrophils % 65.5 %; Nucleated Red Blood Cells % 0 %; Platelet Count 148 10^3/cmm (130-400); Red Cell Distribution Width 14.2 % (12.1-15.1)
[2022-10-10 05:31] LABS: Alanine Aminotransferase 36 U/L (0-41); Albumin Level 2.3 g/dL (3.5-5.2); Alkaline Phosphatase 89 U/L (40-130); Anion Gap 10.9 (5-19); Aspartate Amino Transferase 124 U/L (0-40); Blood Urea Nitrogen 9 mg/dL (6-20); Carbon Dioxide 29 mmol/L (22-29); Chloride 95 mmol/L (98-107); Glomerular Filtration Rate 176.7 mL/min (90-130); Glucose 85 mg/dL (65-115); Osmolality Calculated 270 mOsm/kg (285-295); Potassium 3.9 mmol/L (3.5-5.1); Sodium 131 mmol/L (136-145); Total Bilirubin 3.1 mg/dL (0.15-1.2); Total Protein 6.3 g/dL (6.6-8.7)
[2022-10-10 06:10] LABS: Glucose Point of Care 90 mg/dL (70-110)
[2022-10-10] MEDS: ipratropium-albuterol 3 mL Neb INHALATION ×2 (08:08→15:38)
[2022-10-10] MEDS: budesonide 0.5 mg/2 mL Neb INHALATION (08:08)
[2022-10-10] MEDS: levETIRAcetam 500 mg Tablet 750 MG PO ×2 (08:22→18:16)
[2022-10-10] MEDS: multivitamin therapeutic Tablet 1 TAB PO (08:22)
[2022-10-10] MEDS: spironolactone 25 mg Tablet 100 MG PO ×2 (08:22→18:16)
[2022-10-10] MEDS: gabapentin 400 mg Capsule PO ×3 (08:23→20:32)
[2022-10-10] MEDS: folic acid 1 mg Tablet PO (08:23)
[2022-10-10] MEDS: tamsulosin 0.4 mg Capsule PO (08:23)
[2022-10-10] MEDS: citalopram 20 mg Tablet PO (08:23)
[2022-10-10] MEDS: thiamine 100 mg Tablet PO (08:23)
[2022-10-10] MEDS: lactulose oral liq 20 gm/30 mL UDC 30 GM PO (08:24)
[2022-10-10] MEDS: cefTRIAXone 2,000 MG in sodium chloride 0.9% (plus) 50 ML 100 MG IV (08:35)
[2022-10-10] MEDS: FUROsemide 10 mg/mL SDV 4mL 40 MG IVP (10:24)
--- NOTE | 2022-10-10 10:50 | P.ANESASSM_ITS ---
Pre-Anesthetic Assessment Height/Weight: Height 1.73 m Weight 103.136 kg Temp Pulse Resp BP Pulse Ox O2 Del Method O2 Flow Rate 98.4 F 91 18 113/64 94 Nasal Cannula 3 10/10/22 08:00 10/10/22 08:08 10/10/22 08:08 10/10/22 08:00 10/10/22 08:08 10/10/22 08:08 10/10/22 08:08 Operation Date: 10/10/22 11:30 Proposed Procedures p Laparoscopic Peritoneal Cath Inserti(Not Applicable) - Tapan Zheng DO Familial anesthetic complications: None Was Beta Joanne taken within 24 hours: N/A Was Clonidine taken within 24 hours: N/A Last intake: Intake Last Liquid Date 10/09/22 Last Liquid Time 23:50 Last Solid Date 10/09/22 Last Solid Time 18:00 Social Alcohol and Tobacco Exam alert, oriented x 3, clear to auscultation bilaterally (coarse breath sounds b/l with light wheezes over L lung) and regular rate & rhythm Airway Mallampati: Class III Dentition: full Pulmonary Chronic Obstructive Pulmonary Disease CV/HEM Hypertension Hepatic cirrhosis w/ ascites Metabolic Diabetes Mellitus Neuropsych Seizure Anesthetic Plan ASA status: 4 Anesthesia: General Other: RSI for ascites Risk of > 500 ml blood loss (7ml/kg in children): No Medications/Allergies Home Medications Medication Instructions Recorded Confirmed Last Taken Type levetiracetam 750 mg tablet 750 mg PO BID 30 days #60 tabs 06/12/22 10/05/22 09/28/22 Rx lactulose 10 gram/15 mL oral 30 ml PO TID PRN Constipation 07/13/22 10/05/22 09/28/22 History solution spironolactone 100 mg tablet 100 mg PO DAILY 07/13/22 10/05/22 09/28/22 History citalopram 20 mg tablet (Celexa) 20 mg PO DAILY #30 tabs 08/10/22 10/05/22 09/28/22 Rx paliperidone 6 mg tablet,extended 6 mg PO QAM #14 tabs 08/10/22 10/05/22 09/28/22 Rx release 24 hr (Invega) paliperidone palmitate 234 mg/1.5 234 mg (1.5 mL) IM Q30D #1.5 mL 03/08/3010/05/22 09/28/22 Rx mL intramuscular syringe (Invega Sustflip) gabapentin 400 mg capsule 400 mg PO TID 30 days #90 caps 08/16/22 10/05/22 09/28/22 Rx lisinopril 20 mg tablet 20 mg PO DAILY 90 days #90 tabs 08/16/22 10/05/22 09/28/22 Rx metformin 500 mg tablet,extended 500 mg PO BID 90 days #180 tabs 08/16/22 10/05/22 09/28/22 Rx release 24 hr trazodone 50 mg tablet 50 mg PO BEDTIME 08/21/22 10/05/22 09/28/22 History Allergies Allergy/AdvReac Type Severity Reaction Status Date / Time clozapine [From Clozaril] AdvReac Severe Lowered Verified 10/04/22 22:18 his WBC he says divalproex sodium AdvReac Severe swelling Verified 10/04/22 22:18 [From Depakote] haloperidol [From Haldol] AdvReac Severe swelling Verified 10/04/22 22:18 nitroglycerin AdvReac Severe Stopped Verified 10/04/22 22:18 heart Bee stings Allergy Severe Swelling & Uncoded 10/04/22 22:18 breathing problems, Anaphylactic shock Current Medications Generic Name Dose Route Start Last Admin Trade Name Freq PRN Reason Stop Dose Admin Albuterol/Ipratropium 3 ml 10/05/22 08:00 10/10/22 08:08 Ipratropium-Albuterol 3 Ml Neb INHALATION 3 ml QID.RESPIRATORY SAMANTA Administration Budesonide 0.5 mg 10/05/22 08:00 10/10/22 08:08 Budesonide 0.5 Mg/2 Ml Neb INHALATION 0.5 mg BID.RESPIRATORY SAMANTA Administration Citalopram Hydrobromide 20 mg 10/05/22 09:00 10/10/22 08:23 Citalopram 20 Mg Tablet PO 20 mg DAILY SAMANTA Administration Folic Acid 1 mg 10/06/22 09:00 10/10/22 08:23 Folic Acid 1 Mg Tablet PO 1 mg DAILY SAMANTA Administration Furosemide 40 mg 10/07/22 10:15 10/10/22 10:24 Furosemide 10 Mg/Ml Sdv 4ml IVP 40 mg Q24H SAMANTA Administration Gabapentin 400 mg 10/05/22 09:00 10/10/22 08:23 Gabapentin 400 Mg Capsule PO 400 mg TID SAMANTA Administration Ceftriaxone Sodium 2,000 mg/ 50 mls @ 100 mls/hr 10/05/22 08:45 10/10/22 09:13 Sodium Chloride IV Infused Q24H SAMANTA Infusion Protocol Insulin Human Lispro 0 unit 10/05/22 08:00 10/10/22 08:21 Insulin Lispro 100 Unit/1 Ml SUBCUT Not Given WM&BEDTIME SAMANTA Protocol Lactulose 30 gm 10/08/22 12:00 10/10/22 08:24 Lactulose Oral Liq 20 Gm/30 Ml Udc PO 30 gm DAILY SAMANTA Administration Levetiracetam 750 mg 10/05/22 09:00 10/10/22 08:22 Levetiracetam 500 Mg Tablet PO 750 mg BID SAMANTA Administration Lorazepam 2 mg 10/06/22 13:14 10/08/22 05:58 Lorazepam 2 Mg/Ml Inj 1 Ml IVP 2 mg Q4H PRN Administration WITHDRAWAL Protocol Multivitamins Therapeutic 1 tab 10/06/22 09:00 10/10/22 08:22 Multivitamin Therapeutic Tablet PO 1 tab DAILY SAMANTA Administration Oxycodone HCl 5 mg 10/06/22 11:09 10/09/22 17:24 Oxycodone 5 Mg Ir Tab/Cap PO 5 mg Q8H PRN Administration MODERATE PAIN Paliperidone 6 mg 10/05/22 06:00 10/10/22 05:09 Paliperidone Er 6 Mg Tablet PO 6 mg QAM SAMANTA Administration Spironolactone 100 mg 10/05/22 09:00 10/10/22 08:22 Spironolactone 25 Mg Tablet PO 100 mg DAILY SAMANTA Administration Tamsulosin HCl 0.4 mg 10/07/22 09:00 10/10/22 08:23 Tamsulosin 0.4 Mg Capsule PO 0.4 mg DAILY SAMANTA Administration Thiamine Mononitrate 100 mg 10/06/22 09:00 10/10/22 08:23 Thiamine 100 Mg Tablet PO 100 mg DAILY SAMANTA Administration PFSH Anesthesia Medical History Acne rosacea ALC (alcoholic liver cirrhosis) Alcohol dependence Bipolar disorder Controlled diabetes mellitus with hyperglycemia DM neuropathy, painful Essential (primary) hypertension History of alcohol abuse daily use of hard liquor History of coronary artery disease History of CVA (cerebrovascular accident) 2009 Right side weakness due to a bleed History of memory loss History of schizophrenia Mixed hyperlipidemia Nicotine dependence, cigarettes, uncomplicated Psoriasis Psychiatric care Seizure disorder Traumatic brain injury Surgical History History of cardiac catheterization ~2014 done in [place], reports they discussed possible stent but he declined History of colonoscopy with polypectomy 2015 History of esophagogastroduodenoscopy (EGD) History of eye surgery Family History Other Dementia Diabetes Hypertension Lung disease Psychiatric illness Stroke Denies family history of Chronic kidney disease (CKD) Anesthesia complication Bleeding disorder Cancer Social History Smoking and tobacco status: current every day smoker cigarettes Packs smoked per day: 2.5 Second hand smoke exposure: Yes Alcohol intake: current Alcohol intake frequency: 3 or more drinks per day Al cohol type: hard liquor Substance/Drug Use: never Adopted: No Caregiver/support person: Yes Lives independently: No Household members: friend(s) and caregiver Housing: Manufactured/Mobile home Marital status: Number of children: 8 service: No Current occupational status: disabled Pets and animals: Yes Do you think of yourself as: Straight/Heterosexual Current gender identity: Male Data Anesthesia 10/10/22 04:35 10/10/22 04:35 Short CBC 10/10/22 Range/Units 04:35 WBC 6.0 (4.0-10.0) 10^3/uL Hgb 11.9 (11.7-16.6) g/dL Hct 36.1 L (42.0-52.0) % MCV 100.3 H (80-94) fl Plt Count 148 (130-400) 10^3/cmm Neut % (Auto) 65.5 % Neut # (Auto) 3.90 (1.8-7.7) 10^3/uL BMP 10/09/22 10/10/22 04:04 04:35 Sodium 128 L 131 L Potassium 4.2 3.9 Chloride 92 L 95 L Carbon Dioxide 27 29 BUN 10 9 Creatinine 0.4 L 0.5 L Glucose 88 85 Calcium 8.0 L 8.0 L Liver Function 10/09/22 10/10/22 Range/Units 04:04 04:35 Total Bilirubin 3.6 H 3.1 H (0.15-1.2) mg/dL AST 136 H 124 H (0-40) U/L ALT 41 36 (0-41) U/L Alkaline Phosphatase 115 89 (40-130) U/L Albumin 2.4 L 2.3 L (3.5-5.2) g/dL Cardiac Studies: No Data to Display
--- NOTE | 2022-10-10 11:30 | W.PM.OPSUD ---
Surgery/Procedure H&P Update DATE OF PROCEDURE: October 10, 2022 DATE H&P PERFORMED: 10/09/22 H&P UPDATE INFORMATION: I have reviewed H&P completed within last 30 days, I have examined patient prior to procedure and No changes to prior documentation PREOP DIAGNOSIS: Ascites PLANNED PROCEDURE: Operation Date: 10/10/22 11:30 Proposed Procedures p Laparoscopic Peritoneal Cath Inserti(Not Applicable) - Tapan Zheng DO
--- NOTE | 2022-10-10 11:34 | PC.SOCIAL ---
IMM Updated Updated pt on IMM. No questions voiced. Provided pt a copy. Initialed, dated, & timed copy in chart.
[2022-10-10] MEDS: sodium chloride 0.9% 1,000 ML 30 ML IV (11:43)
[2022-10-10] MEDS: lidocaine-epi 2% 20 mL INJ 10 ML INJECTION (12:40)
--- NOTE | 2022-10-10 12:51 | P.PN_ITS ---
Subjective Subjective: Patient is stating that he is still feeling discomfort in his abdomen Afebrile His MELD score is 15, sodium MELD score [address] Fuentes We will try to get in touch with GI at tertiary center to see if patient will qualify for TIPS Vitals/I&O/Wt Last Vital Signs Temp 99.4 F 10/10/22 11:00 Pulse 100 10/10/22 11:00 Resp 18 10/10/22 11:00 BP 118/87 10/10/22 11:00 Pulse Ox 94 10/10/22 11:00 O2 Del Method Nasal Cannula 10/10/22 11:00 O2 Flow Rate 3 10/10/22 11:00 10/09/22 10/10/22 10/10/22 22:59 06:59 14:59 Intake Total 840 / 1250 50 / 50 Output Total 1750 / 1750 250 / 2000 Balance -910 / -500 -250 / -750 50 / 50 Physical Exam Narrative: Generalized anasarca Umbilical hernia Massive ascites Currently on 2 L Wheezing improved Able to answer my question appropriately No active tremors GCS 15 Nonfocal neuro exam Fatigued and lethargic Urinary Catheter Management: Aleman: Cath Placed During This Visit: yes Reason for Continuing Indwelling Catheter: Accurate Measurement of Urinary Output in Critically Ill Patients Urinary Catheter Date of Insertion: 10/06/22 Urinary Catheter Time of Insertion: 13:00 Data 10/10/22 04:35 10/10/22 04:35 A&P Assessment and plan (1) COPD (chronic obstructive pulmonary disease): (2) Hypoxia: (3) Suicidal ideation: (4) Essential (primary) hypertension: (5) Controlled diabetes mellitus with hyperglycemia: Qualifiers: Diabetes mellitus type: type 2 Diabetes mellitus long-term insulin use: without terminal makeup operator use Qualified Code(s): E11.65 - Type 2 diabetes mellitus with hyperglycemia (6) Seizure disorder: (7) DM neuropathy, painful: (8) Acne rosacea: (9) Psoriasis: (10) Schizophrenia: (11) Mixed hyperlipidemia: (12) ALC (alcoholic liver cirrhosis): (13) Abdominal ascites: (14) Cirrhosis of liver: (15) Alcohol dependence: Plan Recurrent ascites End-stage liver disease decompensated recurrent ascites Patient is scheduled for peritoneal drain MELD score today is 15, sodium meld 22 [facility] does not have IR for TIPS, I have contacted [facility] to get in touch with GI individual pension consultant to give me direction Casey better care of the patient if he would qualify for TIPS versus conservative management considering the fact he is still smoking and drinking alcohol It is very hard for us to get in touch with his , I have spoken with Dr. Fuentes to see if we get help this patient down the road in case of further worsening Patient is DNR/DNI Currently on diuretics We will keep him on sodium restricted diet and fluid restriction Suicidal ideation: Resolved: We will test with Dr. Torres I might be able to transfer him to psych unit by tomorrow DVT prophylaxis contraindicated Acute hypoxia related to hypoventilation due to ascites We will give him albumin Continue ceftriaxone prophylactic SBP Attestations Medical Necessity Statement*: Continue hospitalization Diagnoses COPD (chronic obstructive pulmonary disease) J44.9 Hypoxia R09.02 Suicidal ideation R45.851 Essential (primary) hypertension I10 Controlled diabetes mellitus with hyperglycemia E11.65 Diabetes mellitus type: type 2 Diabetes mellitus long-term insulin use: without terminal makeup operator use Seizure disorder G40.909 DM neuropathy, painful E11.40 Acne rosacea L71.9 Psoriasis L40.9 Schizophrenia F20.9 Mixed hyperlipidemia E78.2 ALC (alcoholic liver cirrhosis) K70.30 Abdominal ascites R18.8 Cirrhosis of liver K74.60 Alcohol dependence F10.20
--- NOTE | 2022-10-10 12:51 | PM.OP ---
Operative Report Date of procedure: October 10, 2022 Pre-op diagnosis: Preop Diagnosis Ascites Post-op diagnosis: same Procedure done: Laparoscopic placement of peritoneal drainage catheter Implants: Peritoneal drainage catheter Specimens removed/disposition: 2 L of ascitic fluid Surgeon: Dr. 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 He desires peritoneal drainage catheter placement for therapeutic paracentesis at home. The risk and benefits were explained and documented. Procedure: Patient was wheeled in the operative room and placed on the OR table in supine position. The abdomen was inspected prepped and draped in usual sterile fashion. A timeout was performed all present were in agreement. A Veress needle was placed in the left upper quadrant and intra-abdominal insufflation was brought to 15 mmHg. A 5 mm trocar was then placed into the site using Optiview. A second 5 mm trocar was placed in the left lower quadrant. A 5 mm diameter 150 mm trocar was then placed just left of the umbilicus and tunneled subcutaneously and then preperitoneal he down to the pelvis. This was done under direct visualization. A peritoneal dialysis catheter was then fed through this trocar down into the pelvis. Both cuffs were noted to be subcutaneously and preperitoneum only. 2000 cc of thin yellow peritoneal fluid was suctioned through the catheter. The catheter appeared in good working order. Ports were removed. A 2-0 Ethilon suture was used to suture the catheter in place. Skin was closed using 4-0 Monocryl in a subcutaneous fashion. Dermabond was applied. Patient tolerated the procedure well.
[2022-10-10] MEDS: fentaNYL 50 mcg/mL INJ 2mL IVP (13:03)
--- NOTE | 2022-10-10 14:08 | ANE.PACU2 ---
Inpatient post-anesthesia follow up: Airway intact: Yes Vital signs: Temperature 99.2 F Pulse Rate 93 Respiratory Rate 17 Blood Pressure 127/87 Pulse Oximetry 90 Oxygen Delivery Me thod Nasal Cannula Oxygen Flow Rate 2 Fraction of Inspir ed Oxygen Hydration adequate: Yes Nausea and vomiting: No Pain level: 1 Mental status: Baseline
--- NOTE | 2022-10-10 14:53 | P.NPUPN_ITS ---
Subjective NPU Subjective: Patient attended today reporting that he is not having any suicidal or homicidal thinking at this point and agrees with this chief writer's assessment that needing to go to the neuropsychiatric unit is unnecessary. The question that remains is whether he is capable of managing himself independently at home. His situation with his has been volatile and it is unclear whether she is prepared to be his home health aide. And it is unclear whether he is impaired to care for himself given his current status. He denies any psychiatric concerns. Mental Status Exam MSE Comments: This is an obese white male with hospital gown on with intermittent eye contact and poor grooming lying in his MedSurg bed. Significant arriaza. He was cooperative with exam in mild distress. His speech was decreased rate and volume. Mood described as better. His affect was subdued. Thought process:linear, logical Thought content: Patient denied suicidal or homicidal ideation. There were no delusions reported or noted, he denied any auditory or visual hallucinations currently. Attention and concentration appeared intact and memory was mostly reliable but none were formally tested. The alert and oriented x3. Insight, judgment and impulse control are limited. Vitals/I&O/Wt Last Vital Signs Temp 97.8 F 10/10/22 14:05 Pulse 94 10/10/22 14:05 Resp 17 10/10/22 14:05 BP 103/75 10/10/22 14:05 Pulse Ox 91 10/10/22 14:05 O2 Del Method Nasal Cannula 10/10/22 14:05 O2 Flow Rate 2 10/10/22 14:05 10/09/22 10/10/22 10/10/22 22:59 06:59 14:59 Intake Total 840 / 1250 500 / 500 Output Total 1750 / 1750 250 / 1999 Balance -910 / -500 -250 / -750 -1501 / -1501 Physical Exam Urinary Catheter Management: Aleman: Cath Placed During This Visit: yes Reason for Continuing Indwelling Catheter: Accurate Measurement of Urinary Output in Critically Ill Patients Urinary Catheter Date of Insertion: 10/06/22 Urinary Catheter Time of Insertion: 13:00 Data NPU 10/10/22 04:35 10/10/22 04:35 A&P Assessment and plan (1) Schizophrenia: (2) Major depression, recurrent, chronic: (3) ALC (alcoholic liver cirrhosis): (4) Traumatic brain injury: (5) Alcohol dependence: Plan The patient is a 47-year-old white male with schizophrenia, major depressive disorder and alcohol dependence with continued drinking in the face of end-stage liver disease with continued ascites admitted with homicidal ideation with active medical problems including a cirrhotic liver. 1.? Continue current medications. 2.? Continue one-to-one while on MedSurg. Her hold is set to tomorrow. 3.? [facility] protocol for alcohol withdrawal. 4. No acute psychiatric issues present and he is appropriate to discharge from the hospital from psychiatric standpoint. Involuntary Hold Information 96 Hour Hold: 96 Hour Involuntary Admission: No 96 Hour Hold Ending Date: 06/12/22 96 Hour Hold Ending Time: 14:00 Attestations NPU Medical Necessity Statement*: N/A. Please see primary team note for medical necessity as inpatient psychiatric treatment no longer necessary. Coding Level of Care Code Acute Code for [facility] Fwd Diagnoses Schizophrenia F20.9 Major depression, recurrent, chronic F33.9 ALC (alcoholic liver cirrhosis) K70.30 Traumatic brain injury S06.9X9A Alcohol dependence F10.20
[2022-10-10] MEDS: albumin 12.5 GM/50 ML VIAL IV (15:07)
[2022-10-10] MEDS: oxyCODONE 5 mg IR Tab/Cap PO (15:18)
[2022-10-10 16:55] LABS: Glucose Point of Care 148 mg/dL (70-110)
[2022-10-10] MEDS: insulin lispro 100 unit/1 mL SUBCUT ×2 (18:16→21:37)
[2022-10-11] VITALS (15 sets, daily range): BP systolic 99–105; BP diastolic 49–64; PULSE 74–95; RESP 15–20; TEMP 36.6–37.1; O2SAT 2–95
[2022-10-11] MEDS: oxyCODONE 5 mg IR Tab/Cap PO ×3 (05:12→23:44)
[2022-10-11] MEDS: paliperidone ER 6 mg Tablet PO (05:38)
--- NOTE | 2022-10-11 08:28 | P.PN_ITS ---
Subjective Subjective: Dr. Feliz from [facility] did not recommend TIPS because of high MELD sodium score Patient is stating that is slightly better but still feeling nauseous I have asked Lucien to let Modesta Flores know that we need her in the hospital so we can teach her how to drain the peritoneal catheter to remove ascitic fluid at home Dr. Fuentes has been notified as well Patient is stating that he will not be able to follow-up in [place] with airframe and powerplant technician, he is stating that he would like to talk with palliative care Dr. Torres has cleared him to be discharged from the hospital Vitals/I&O/Wt Last Vital Signs Temp 97.8 F 10/11/22 07:26 Pulse 80 10/11/22 07:26 Resp 16 10/11/22 07:26 BP 101/59 10/11/22 07:26 Pulse Ox 94 10/11/22 07:26 O2 Del Method Nasal Cannula 10/11/22 07:26 O2 Flow Rate 2 10/10/22 20:00 10/10/22 10/11/22 10/11/22 22:59 06:59 14:59 Intake Total 540 / 1040 120 / 1160 480 / 480 Output Total 200 / 2201 500 / 2701 Balance 340 / -1161 -380 / -1541 480 / 480 Physical Exam Narrative: Patient is awake and alert On 2 L Much more alert as compared to yesterday Abdomen distended w peritoneal drain in place, dressing slightly soaked with ascitic fluid on left side No active signs of hepatic encephalopathy No active chest pain or shortness of breath Ascites anasarca Acne rosacea facial psoriasis Urinary Catheter Management: Aleman: Cath Placed During This Visit: yes Reason for Continuing Indwelling Catheter: Acute Urinary Retention or Obstruction Urinary Catheter Date of Insertion: 10/06/22 Urinary Catheter Time of Insertion: 13:00 Data 10/10/22 04:35 10/10/22 04:35 A&P Assessment and plan (1) COPD (chronic obstructive pulmonary disease): (2) Hypoxia: (3) Suicidal ideation: (4) Essential (primary) hypertension: (5) Controlled diabetes mellitus with hyperglycemia: Qualifiers: Diabetes mellitus type: type 2 Diabetes mellitus water softener servicer insulin use: without penitentiary use Qualified Code(s): E11.65 - Type 2 diabetes mellitus with hyperglycemia (6) Seizure disorder: (7) DM neuropathy, painful: (8) Mixed hyperlipidemia: (9) Acne rosacea: (10) Psoriasis: (11) Schizophrenia: (12) Abdominal ascites: (13) ALC (alcoholic liver cirrhosis): (14) Cirrhosis of liver: (15) Alcohol dependence: Plan Status post peritoneal drain We will teach his and then plan his discharge home Patient does not want to follow-up with airframe and powerplant technician, asking for palliative consult, Dr. Fuentes has been notified We will plan his discharge later today versus tomorrow I have spoken with Lucien this morning to ask his to come to the hospital so we could teach her how to drain ascitic fluid through peritoneal catheter We will discontinue ceftriaxone, I would not add more albumin at this point Patient has end-stage liver disease with noncompliance after smoker and alcohol abuse DNR/DNI For evaluation of TIPS she does not want to follow-up with any airframe and powerplant technician however my communication with GI doctor at [place] Dr. Feliz was uneventful, he did not recommend TIPS at this point considering high mortality morbidity Attestations Medical Necessity Statement*: Discharge later today versus tomorrow Diagnoses COPD (chronic obstructive pulmonary disease) J44.9 Hypoxia R09.02 Suicidal ideation R45.851 Essential (primary) hypertension I10 Controlled diabetes mellitus with hyperglycemia E11.65 Diabetes mellitus type: type 2 Diabetes mellitus penitentiary insulin use: without water softener servicer use Seizure disorder G40.909 DM neuropathy, painful E11.40 Mixed hyperlipidemia E78.2 Acne rosacea L71.9 Psoriasis L40.9 Schizophrenia F20.9 Abdominal ascites R18.8 ALC (alcoholic liver cirrhosis) K70.30 Cirrhosis of liver K74.60 Alcohol dependence F10.20
[2022-10-11] MEDS: budesonide 0.5 mg/2 mL Neb INHALATION ×2 (08:38→20:43)
[2022-10-11] MEDS: ipratropium-albuterol 3 mL Neb INHALATION ×4 (08:38→20:43)
[2022-10-11] MEDS: tamsulosin 0.4 mg Capsule PO (10:00)
[2022-10-11] MEDS: FUROsemide 40 mg Tablet 80 MG PO (10:00)
[2022-10-11] MEDS: spironolactone 25 mg Tablet 100 MG PO ×2 (10:00→17:49)
[2022-10-11] MEDS: thiamine 100 mg Tablet PO (10:00)
[2022-10-11] MEDS: lactulose oral liq 20 gm/30 mL UDC 30 GM PO (10:01)
[2022-10-11] MEDS: levETIRAcetam 500 mg Tablet 750 MG PO ×2 (10:01→17:49)
[2022-10-11] MEDS: citalopram 20 mg Tablet PO (10:01)
[2022-10-11] MEDS: folic acid 1 mg Tablet PO (10:01)
[2022-10-11] MEDS: multivitamin therapeutic Tablet 1 TAB PO (10:02)
[2022-10-11 11:46] LABS: Glucose Point of Care 136 mg/dL (70-110)
--- NOTE | 2022-10-11 13:54 | PC.OT ---
PER DISCUSSION WITH P.T.; NO OT NEEDS AT THIS TIME. THEREFORE, NO OT EVALUATION COMPLETED.
--- NOTE | 2022-10-11 14:42 | PM.MISC ---
Miscellaneous Note Purpose of Documentation: Palliative Medicine Full consult to follow
--- NOTE | 2022-10-11 14:52 | P.CONIM_ITS ---
Providers/Reason For Consult Consulting Physician/Specialty*: Palliative Medicine Reason for Consult*: Patient asked about going on hospice Requesting Physician: Dr. Graves Attending Physician: Judith Graves MD Primary Care Provider: YENI Perez Dr. History of Present Illness History of Present Illness Reinaldo Flores is a 47 year old male with schizophrenia and alcoholism presents with ascites. He has intractable ascites and has been hospitalized multiple times for recurrent paracentesis. Unfortunately he continues to consume alcohol. And he reports he still hears voices. Review of Systems Narrative: having pain at drain site Medications/Allergies Home Medications Medication Instructions Recorded Confirmed Last Taken Type levetiracetam 750 mg tablet 750 mg PO BID 30 days #60 tabs 06/12/22 10/05/22 09/28/22 Rx lactulose 10 gram/15 mL oral 30 ml PO TID PRN Constipation 07/13/22 10/05/22 09/28/22 History solution spironolactone 100 mg tablet 100 mg PO DAILY 07/13/22 10/05/22 09/28/22 History citalopram 20 mg tablet (Celexa) 20 mg PO DAILY #30 tabs 08/10/22 10/05/22 09/28/22 Rx paliperidone 6 mg tablet,extended 6 mg PO QAM #14 tabs 08/10/22 10/05/22 09/28/22 Rx release 24 hr (Invega) paliperidone palmitate 234 mg/1.5 234 mg (1.5 mL) IM Q30D #1.5 mL 08/10/22 10/05/22 09/28/22 Rx mL intramuscular syringe (Invega Sustenna) gabapentin 400 mg capsule 400 mg PO TID 30 days #90 caps 08/16/22 10/05/22 09/28/22 Rx lisinopril 20 mg tablet 20 mg PO DAILY 90 days #90 tabs 08/16/22 10/05/22 09/28/22 Rx metformin 500 mg tablet,extended 500 mg PO BID 90 days #180 tabs 08/16/22 10/05/22 09/28/22 Rx release 24 hr trazodone 50 mg tablet 50 mg PO BEDTIME 08/21/22 10/05/22 09/28/22 History Allergies Allergy/AdvReac Type Severity Reaction Status Date / Time clozapine [From Clozaril] AdvReac Severe Lowered Verified 10/04/22 22:18 his WBC he says divalproex sodium AdvReac Severe swelling Verified 10/04/22 22:18 [From Depakote] haloperidol [From Haldol] AdvReac Severe swelling Verified 10/04/22 22:18 nitroglycerin AdvReac Severe Stopped Verified 10/04/22 22:18 heart Bee stings Allergy Severe Swelling & Uncoded 10/04/22 22:18 breathing problems, Anaphylactic shock Current Medications Generic Name Dose Route Start Last Admin Trade Name Freq PRN Reason Stop Dose Admin Albuterol/Ipratropium 3 ml 10/05/22 08:00 10/11/22 11:30 Ipratropium-Albuterol 3 Ml Neb INHALATION 3 ml QID.RESPIRATORY SAMANTA Administration Budesonide 0.5 mg 10/05/22 08:00 10/11/22 08:38 Budesonide 0.5 Mg/2 Ml Neb INHALATION 0.5 mg BID.RESPIRATORY SAMANTA Administration Citalopram Hydrobromide 20 mg 10/05/22 09:00 10/11/22 10:01 Citalopram 20 Mg Tablet PO 20 mg DAILY SAMANTA Administration Folic Acid 1 mg 10/06/22 09:00 10/11/22 10:01 Folic Acid 1 Mg Tablet PO 1 mg DAILY SAMANTA Administration Furosemide 80 mg 10/11/22 08:00 10/11/22 10:00 Furosemide 40 Mg Tablet PO 80 mg DAILY@0800 SAMANTA Administration Insulin Human Lispro 0 unit 10/05/22 08:00 10/11/22 12:05 Insulin Lispro 100 Unit/1 Ml SUBCUT Not Given WM&BEDTIME SAMANTA Protocol Lactulose 30 gm 10/08/22 12:00 10/11/22 10:01 Lactulose Oral Liq 20 Gm/30 Ml Udc PO 30 gm DAILY SAMANTA Administration Levetiracetam 750 mg 10/05/22 09:00 10/11/22 10:01 Levetiracetam 500 Mg Tablet PO 750 mg BID SAMANTA Administration Lorazepam 2 mg 10/06/22 13:14 10/08/22 05:58 Lorazepam 2 Mg/Ml Inj 1 Ml IVP 2 mg Q4H PRN Administration WITHDRAWAL Protocol Multivitamins Therapeutic 1 tab 10/06/22 09:00 10/11/22 10:02 Multivitamin Therapeutic Tablet PO 1 tab DAILY SAMANTA Administration Oxycodone HCl 5 mg 10/06/22 11:09 10/11/22 05:12 Oxycodone 5 Mg Ir Tab/Cap PO 5 mg Q8H PRN Administration MODERATE PAIN Paliperidone 6 mg 10/05/22 06:00 10/11/22 05:38 Paliperidone Er 6 Mg Tablet PO 6 mg QAM SAMANTA Administration Spironolactone 100 mg 10/11/22 09:00 10/11/22 10:00 Spironolactone 25 Mg Tablet PO 100 mg DAILY SAMANTA Administration Spironolactone 100 mg 10/10/22 18:00 10/11/22 10:02 Spironolactone 25 Mg Tablet PO Not Given BID SAMANTA Tamsulosin HCl 0.4 mg 10/07/22 09:00 10/11/22 10:00 Tamsulosin 0.4 Mg Capsule PO 0.4 mg DAILY SAMANTA Administration Thiamine Mononitrate 100 mg 10/06/22 09:00 10/11/22 10:00 Thiamine 100 Mg Tablet PO 100 mg DAILY SAMANTA Administration PFSH Acute PFSH: Medical History Acne rosacea ALC (alcoholic liver cirrhosis) Alcohol dependence Bipolar disorder Controlled diabetes mellitus with hyperglycemia DM neuropathy, painful Essential (primary) hypertension History of alcohol abuse daily use of hard liquor History of coronary artery disease History of CVA (cerebrovascular accident) 2009 Right side weakness due to a bleed History of memory loss History of schizophrenia Mixed hyperlipidemia Nicotine dependence, cigarettes, uncomplicated Psoriasis Psychiatric care Seizure disorder Traumatic brain injury Surgical History History of cardiac catheterization ~2014 done in [place], reports they discussed possible stent but he declined History of colonoscopy with polypectomy 2016 History of esophagogastroduodenoscopy (EGD) History of eye surgery Family History Other Dementia Diabetes Hypertension Lung disease Psychiatric illness Stroke Denies family history of Chronic kidney disease (CKD) Anesthesia complication Bleeding disorder Cancer Social History Smoking and tobacco status: current every day smoker cigarettes Packs smoked per day: 2.5 Second hand smoke exposure: Yes Alcohol intake: current Alcohol intake frequency: 3 or more drinks per day Alcohol type: hard liquor Substance/Drug Use: never Adopted: No Caregiver/support person: Yes Lives independently: No Household members: friend(s) and caregiver Housing: Manufactured/Mobile home Marital status: Number of children: 8 service: No Current occupational status: disabled Pets and animals: Yes Do you think of yourself as: Straight/Heterosexual Current gender identity: Male Vitals/I&O/Wt Last Vital Signs Temp 97.8 F 10/11/22 11:45 Pulse 77 10/11/22 11:45 Resp 16 10/11/22 11:45 BP 99/54 10/11/22 11:45 Pulse Ox 94 10/11/22 11:45 O2 Del Method Nasal Cannula 10/11/22 11:45 O2 Flow Rate 2 10/11/22 11:30 10/10/22 10/11/22 10/11/22 22:59 06:59 14:59 Intake Total 540 / 1040 120 / 1160 1640 / 1640 Output Total 200 / 2201 500 / 2701 Balance 340 / -1161 -380 / -1541 1640 / 1640 Physical Exam Narrative: Obese male with heavy arriaza, glasses. Flat affect. Abd: obese and distented. soft when touched it Ext: non pitting edema Urinary Catheter Management: Aleman: Cath Placed During This Visit: yes Reason for Continuing Indwelling Catheter: Acute Urinary Retention or Obstruction Urinary Catheter Date of Insertion: 10/06/22 Urinary Catheter Time of Insertion: 13:00 Data 10/10/22 04:35 10/10/22 04:35 A&P Assessment and plan (1) Schizophrenia: (2) ALC (alcoholic liver cirrhosis): (3) Major depression, recurrent, chronic: (4) Controlled diabetes mellitus with hyperglycemia: Qualifiers: Diabetes mellitus type: type 2 Diabetes mellitus group home insulin use: without group home use Qualified Code(s): E11.65 - Type 2 diabetes mellitus with hyperglycemia (5) COPD (chronic obstructive pulmonary disease): (6) Alcohol dependence: Plan Unfortunately Lance medical condition and psychological condition are exacerbating each other. Perhaps transfer to tertiary care center should be considered. For cirrhosis: Diuretic therapy typically consists of treatment with? spironolactone?and?furosemide?in a ratio of 100:40 mg per day, with doses titrated upward every three to five days as needed (up to 400 mg spironolactone and 160 mg furosemide per day).,Na restriction. Recommend discontinuing karen-i in pt with cirrhosis. I am unable to speak to psychiatric recommendation. Regarding symptoms: pain - MS IR prn, avoid ultram, tylenol. He said ibuprofen did not help withdrawal: wean ativan and if sending home, provide RX denies other symptoms If he goes home, recommend HHC, resource information on alcohol cessation programs - AA, SMART recovery, and inpatient alcohol centers. Consult Attestations Medical Necessity Statement: Patient with significiant ascites without insight and judgement due to both schizophrenia and alcoholism. Required titration of diuretics to avoid worsening conditions or over diuresis. Coding Level of Care Code Acute Code for [facility] Fwd Diagnoses Schizophrenia F20.9 ALC (alcoholic liver cirrhosis) K70.30 Major depression, recurrent, chronic F33.9 Controlled diabetes mellitus with hyperglycemia E11.65 Diabetes mellitus type: type 2 Diabetes mellitus long term care phlebotomist insulin use: without long term care phlebotomist use COPD (chronic obstructive pulmonary disease) J44.9 Alcohol dependence F10.20
[2022-10-11 17:05] LABS: Glucose Point of Care 131 mg/dL (70-110)
[2022-10-11 20:30] LABS: Glucose Point of Care 133 mg/dL (70-110)
[2022-10-12] VITALS (7 sets, daily range): BP systolic 93–102; BP diastolic 47–56; PULSE 75–82; RESP 16–18; TEMP 36.5–36.9; O2SAT 2–95
[2022-10-12] MEDS: oxyCODONE 5 mg IR Tab/Cap PO (03:47)
[2022-10-12] MEDS: paliperidone ER 6 mg Tablet PO (06:26)
[2022-10-12 06:47] LABS: Glucose Point of Care 100 mg/dL (70-110)
[2022-10-12] MEDS: ipratropium-albuterol 3 mL Neb INHALATION (08:04)
[2022-10-12] MEDS: budesonide 0.5 mg/2 mL Neb INHALATION (08:04)
[2022-10-12] MEDS: citalopram 20 mg Tablet PO (08:54)
[2022-10-12] MEDS: multivitamin therapeutic Tablet 1 TAB PO (08:54)
[2022-10-12] MEDS: tamsulosin 0.4 mg Capsule PO (08:54)
[2022-10-12] MEDS: folic acid 1 mg Tablet PO (08:54)
[2022-10-12] MEDS: thiamine 100 mg Tablet PO (08:54)
[2022-10-12] MEDS: spironolactone 25 mg Tablet 100 MG PO (08:55)
[2022-10-12] MEDS: FUROsemide 40 mg Tablet 80 MG PO (08:55)
[2022-10-12] MEDS: levETIRAcetam 500 mg Tablet 750 MG PO (08:55)
[2022-10-12] MEDS: lactulose oral liq 20 gm/30 mL UDC 30 GM PO (08:55)
--- NOTE | 2022-10-12 10:23 | P.DS_ITS ---
Discharge Providers Date of Admission: 10/05/22 00:46 Date of Discharge: October 12, 2022 Attending Provider at Admission: Brandon oHward MD Attending Provider at Discharge: Judith Graves MD Primary Care Provider: YENI Perez Diagnoses at Discharge Discharge Diagnosis (1) Schizophrenia: Status: Chronic (2) ALC (alcoholic liver cirrhosis): Status: Chronic (3) Major depression, recurrent, chronic: Status: Chronic (4) Controlled diabetes mellitus with hyperglycemia: Status: Chronic Qualifiers: Diabetes mellitus type: type 2 Diabetes mellitus terminal superintendent insulin use: without group home use Qualified Code(s): E11.65 - Type 2 diabetes mellitus with hyperglycemia (5) COPD (chronic obstructive pulmonary disease): Status: Acute (6) Alcohol dependence: Status: Chronic Reason for Visit Reason for Visit: SOB/ABD PAIN Hospital Course Hospital Course 47-year-old male with end-stage liver disease, noncompliant, active alcohol abuser, smokes on daily basis, lives with his , came in with suicidal ideation, patient comes in for recurrent paracentesis every other week, patient was put on 96-hour hold for suicidal ideation, Dr. Torres deemed him incapacitated, after ninths to 6-hour hold he was reevaluated, Dr. Torres cleared him to go home he was declined by home health services because of his active alcohol abuse, I presented this case to [facility] doctor Dr. Feliz, who recommended against TIPS because of his sodium meld 24 which carries high mortality morbidity after the procedure, I asked Dr. Zheng to put a peritoneal drain so his could help him out with therapeutic drainage on frequent basis at home so he could prevent readmissions in the hospital. Patient was asking for palliative consult, Dr. Cody recommended increasing diuretics for now with increase of diuretics his blood pressure tends to drop, we have to use it judiciously with low sodium intake fluid restriction in case of further worsening he might opt for palliative care For now he is being discharged home, nurses will teach his how to drain, because of massive ascites it is expected that we will see some leakage around peritoneal drainage insertion site He required albumin and ceftriaxone throughout hospitalization, remained afebrile, he has qualified for 3 L of oxygen at the time of discharge For now his goals of care are DNR/DNI this was discussed multiple times with the patient, is also endorsing DNR/DNI status Physical Exam Narrative: Patient has generalized anasarca Peritoneal drain with mild drainage around insertion site Nontender abdomen Awake and alert GCS 15 currently on 3 L Urinary Catheter Management: Aleman: Cath Placed During This Visit: yes Reason for Continuing Indwelling Catheter: Acute Urinary Retention or Obstruction Urinary Catheter Date of Insertion: 10/06/22 Urinary Catheter Time of Insertion: 13:00 Discharge Data Studies Completed and Pending Completed Studies During Hospitalization Category Date Time Status XR chest 1V portable [id number] Stat Exams 10/04/22 22:12 [place]d w [id number] Routine Ultrasound 10/05/22 01:48 Completed Radiology Impressions Chest X-Ray 10/04/22 22:12 IMPRESSION: Left mid to lower lung field atelectasis versus infiltrate. Paracentesis Ultrasound 10/05/22 01:48 IMPRESSION: Uncomplicated paracentesis yielding 10,000 ml of peritoneal fluid. Laboratory Results WBC 6.0 10^3/uL (4.0-10.0) 10/10/22 04:35 RBC 3.60 10^6/uL (4.1-5.3) L 10/10/22 04:35 Hgb 11.9 g/dL (11.7-16.6) 10/10/22 04:35 Hct 36.1 % (42.0-52.0) L 10/10/22 04:35 MCV 100.3 fl (80-94) H 10/10/22 04:35 MCH 33.1 pg (28.0-34.0) 10/10/22 04:35 MCHC 33.0 g/dL (30.0-36.0) 10/10/22 04:35 RDW 14.2 % (12.1-15.1) 10/10/22 04:35 Plt Count 148 10^3/cmm (130-400) 10/10/22 04:35 MPV 9.8 fL (7.4-10.4) 10/10/22 04:35 Neut % (Auto) 65.5 % 10/10/22 04:35 Lymph % (Auto) 13.9 % 10/10/22 04:35 [place] % (Auto) 14.4 % 10/10/22 04:35 Eos % (Auto) 4.4 % 10/10/22 04:35 Baso % (Auto) 1.3 % 10/10/22 04:35 Neut # (Auto) 3.90 10^3/uL (1.8-7.7) 10/10/22 04:35 Lymph # (Auto) 0.8 10^3/uL (0.8-4.8) 10/10/22 04:35 [place] # (Auto) 0.9 10^3/uL (0.2-0.9) 10/10/22 04:35 Eos # (Auto) 0.3 10^3/uL (0.0-0.8) 10/10/22 04:35 Baso # (Auto) 0.1 10^3/uL (0.0-0.1) 10/10/22 04:35 Nucleated RBC % (auto) 0 % 10/10/22 04:35 Nucleated RBCs # 0.0 /100WBC 10/10/22 04:35 PT 17.20 SECONDS (12.1-14.9) H 10/07/22 11:23 INR 1.35 (0.8-1.2) H 10/07/22 11:23 APTT 38.6 SECONDS (23.9-36.7) H 10/07/22 11:23 Fibrinogen 239 mg/dL (174-498) 10/07/22 11:23 Fibrin Degrad Products Pos, 10-40 ug/mL (NEG) H 10/07/22 11:23 D-Dimer 7.38 ug/mIFEU (0-0.59) H 10/07/22 11:23 Sodium 131 mmol/L (136-145) L 10/10/22 04:35 Potassium 3.9 mmol/L (3.5-5.1) 10/10/22 04:35 Chloride 95 mmol/L (98-107) L 10/10/22 04:35 Carbon Dioxide 29 mmol/L (22-29) 10/10/22 04:35 Anion Gap 10.9 (5-19) 10/10/22 04:35 BUN 9 mg/dL (6-20) 10/10/22 04:35 Creatinine 0.5 mg/dL (0.7-1.2) L 10/10/22 04:35 GFR Calculation 176.7 mL/min (90-130) H 10/10/22 04:35 Glucose 85 mg/dL (65-115) 10/10/22 04:35 POC Glucose 100 mg/dL (70-110) 10/12/22 06:42 Calculated Osmolality 270 mOsm/kg (285-295) L 10/10/22 04:35 Calcium 8.0 mg/dL (8.5-10.5) L 10/10/22 04:35 Magnesium 1.7 mg/dL (1.7-2.3) 10/06/22 05:23 Total Bilirubin 3.1 mg/dL (0.15-1.2) H 10/10/22 04:35 AST 124 U/L (0-40) H 10/10/22 04:35 ALT 36 U/L (0-41) 10/10/22 04:35 Alkaline Phosphatase 89 U/L (40-130) 10/10/22 04:35 NT-Pro-B Natriuret Pep 131 pg/mL (0-125) H 10/04/22 22:24 Total Protein 6.3 g/dL (6.6-8.7) L 10/10/22 04:35 Albumin 2.3 g/dL (3.5-5.2) L 10/10/22 04:35 Globulin 4.0 g/dL (1.3-4.6) 10/10/22 04:35 Lipase 118 U/L (13-60) H 10/04/22 22:24 TSH 7.46 uIU/mL (0.27-4.20) H 10/07/22 05:31 Salicylates < 0.3 mg/dL (3-10) L 10/04/22 22:24 Urine Opiates Screen Negative ng/mL (Negative) 10/05/22 11:42 Acetaminophen < 5.0 ug/mL (10-30) L 10/04/22 22:24 Ur Barbiturates Screen Negative ng/mL (Negative) 10/05/22 11:42 Ur Phencyclidine Scrn Negative ng/mL (Negative) 10/05/22 11:42 Ur Amphetamines Screen Negative ng/mL (Negative) 10/05/22 11:42 U Benzodiazepines Scrn Negative ng/mL (Negative) 10/05/22 11:42 Urine Cocaine Screen Negative ng/mL (Negative) 10/05/22 11:42 U Marijuana (THC) Screen Negative ng/mL (Negative) 10/05/22 11:42 Ethyl Alcohol 230 mg/dL (0-10) H 10/04/22 22:24 Vitals Last Vital Signs Temp 98.4 F 10/12/22 08:00 Pulse 80 10/12/22 08:13 Resp 16 10/12/22 08:05 BP 93/47 10/12/22 08:00 Pulse Ox 94 10/12/22 08:05 O2 Del Method Nasal Cannula 10/12/22 08:05 O2 Flow Rate 3 10/12/22 08:05 Discharge Plan Discharge Patient Disposition: Home Condition: Stable Prescriptions: New furosemide [Lasix] 20 mg tablet 20 mg PO DAILY Qty: 90 3RF thiamine HCl (vitamin B1) 100 mg tablet 100 mg PO DAILY Qty: 90 0RF lactulose 20 gram/30 mL solution 20 g PO DAILY Qty: 2880 5RF Continued Invega Sustenna 234 mg/1.5 mL syringe 234 mg IM Q30D Qty: 1.5 0RF Rx Instructions: initial starting dose citalopram [Celexa] 20 mg tablet 20 mg PO DAILY Qty: 30 2RF paliperidone [Invega] 6 mg tablet extended release 24 hr 6 mg PO QAM Qty: 14 2RF Rx Instructions: daily as needed 2 weeks before injection is next due levetiracetam 750 mg tablet 750 mg PO BID 30 Days Qty: 60 1RF lactulose 10 gram/15 mL solution 30 ml PO TID PRN (Reason: Constipation) spironolactone 100 mg tablet 100 mg PO DAILY Qty: 60 2RF Discontinued metformin 500 mg tablet extended release 24 hr 500 mg PO BID 90 Days Qty: 180 0RF gabapentin 400 mg capsule 400 mg PO TID 30 Days Qty: 90 0RF lisinopril 20 mg tablet 20 mg PO DAILY 90 Days Qty: 90 0RF trazodone 50 mg tablet 50 mg PO BEDTIME Discharge Orders: Discharge Order (Routine); Ordered 10/12/22 Ordered By: Judith Graves Other Ambulatory Orders: DME: Oxygen (Order) Location: None Selected Ordered By: Judith Graves [place] [facility] [place] Jewell Hugo FNP-C [Primary Care Provider] - 05/05/23 9:00 am Discharge Diet: Cardiac and Low Salt Discharge Activity: Increase activity as tolerated Patient Instructions: Opioid Safety Discharge Attestations Time Spent in Discharge Care*: greater than 30 min Status at Discharge: Cognitive status at discharge: cognitively intact , Behavioral status at discharge: cooperative , Quality Metrics Clinical Quality Measures [ No reported AMI, CVA or VTE this stay] Coding Level of Care Code Acute Code for Chg Fwd Diagnoses Schizophrenia F20.9 ALC (alcoholic liver cirrhosis) K70.30 Major depression, recurrent, chronic F33.9 Controlled diabetes mellitus with hyperglycemia E11.65 Diabetes mellitus type: type 2 Diabetes mellitus group home insulin use: without terminal superintendent use COPD (chronic obstructive pulmonary disease) J44.9 Alcohol dependence F10.20
[2022-10-12 11:56] LABS: Glucose Point of Care 122 mg/dL (70-110)
--- NOTE | 2022-10-12 12:32 | PC.SOCIAL ---
IMM Updated Updated pt on IMM. No questions voiced. Provided pt a copy. Initialed, dated, & timed copy in chart.
== END 2022-10-12 16:30 | disposition home or self-care (01) | DRG 421 ==
LOC: ER 10-05 01:19 → MEDSURG 10-05 01:22
PROVIDERS: Family Medicine; Surgery; Admitting Provider Internal Medicine; Emergency Provider Emergency Medicine; PCP Nurse Practitioner Family; Visit Provider Internal Medicine
PROC: 0WHG43Z Insertion of Infusion Device into Peritoneal Cavity, Percutaneous Endoscopic Approach (ICD-10-PCS; CPT 49324; principal; 2022-10-10 11:30)
DX: K70.31 Alcoholic cirrhosis of liver with ascites (principal); F10.239 Alcohol dependence with withdrawal, unspecified; R45.851 Suicidal ideations; F10.229 Alcohol dependence with intoxication, unspecified; Y90.7 Blood alcohol level of 200-239 mg/100 ml; F25.1 Schizoaffective disorder, depressive type; E11.65 Type 2 diabetes mellitus with hyperglycemia; E11.40 Type 2 diabetes mellitus with diabetic neuropathy, unspecified; J44.9 Chronic obstructive pulmonary disease, unspecified; Z91.199 Patient's noncompliance with other medical treatment and regimen due to unspecified reason; F17.210 Nicotine dependence, cigarettes, uncomplicated; Z66 Do not resuscitate; R45.850 Homicidal ideations; Z86.73 Personal history of transient ischemic attack (TIA), and cerebral infarction without residual deficits; I25.10 Atherosclerotic heart disease of native coronary artery without angina pectoris; E78.2 Mixed hyperlipidemia; L71.9 Rosacea, unspecified; I10 Essential (primary) hypertension; L40.9 Psoriasis, unspecified
CPT/HCPCS: 36415; 36416; 49083; 51702; 71045; 74176; 76705; 80053; 80306; 80307; 81001; 82140; 82962; 83036; 83605; 83690; 83735; 83880; 84145; 84443; 85025; 85362; 85378; 85384; 85610; 85730; 86140; 87040; 93005; 94640; 94664; 94760; 96365; 96372; 96375; 96376; 97161; 97530; 99285; C9113; J0330; J0696; J1100; J1650; J1815; J1940; J2060; J2270; J2405; J2704; J2710; J3010; J3411; J3490; J7030; J7626; P9047

== ENCOUNTER 2022-10-12 22:22 | Inpatient (IN) | payer MEDICARE, MEDICAID, SELFPAY ==
[2022-10-12 22:25] VITALS: BP 121/69; PULSE 121; RESP 18; TEMP 36.9; O2SAT 91
--- NOTE | 2022-10-12 23:04 | ECG_ITS ---
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 Measurements Intervals [place] Rate: 96 P: 56 NV: 147 QRS: -1 QRSD: 94 T: 27 QT: 347 QTc: 440 Interpretive Statements SINUS RHYTHM Compared to ECG 10/05/2022 00:32:43 Myocardial infarct finding no longer present Electronically Signed On 10-13-2022 9:55:26 CDT by Cameron Le M.D. [email or web address]
--- NOTE | 2022-10-12 23:41 | ED_ITS ---
HPI - Abdominal Pain General: Chief Complaint: ER Hold Stated Complaint: ABD PAIN Time Seen by Provider: 10/12/22 22:30 History of Present Illness: 47-year-old male with a history of chronic liver disease. He was discharged from the hospital around 5 PM. He went home and began to complain of increasing belly pain with drainage of abdominal ascites fluid from around the abdominal drain that had been surgically placed in the hospital. Evidently, he has had to change his close to 4 times, and his abdominal bandage 5 times or more since that time he continues to leak ascites fluid. He became very upset at his and had threatened to kill her, and kill himself, so EMS was called. He is calm and cooperative on my exam. MD elicited complaint: abdominal pain Pertinent past history: other Onset (ago): hour(s) Pain Consistency: constant Location: Diffuse Severity: moderate Radiation: none Migration to: no migration Exacerbating factors: movement Relieving factors: nothing Associated Symptoms: Reports anorexia, nausea and other; Denies diarrhea, fever(s), hematochezia, hematemesis, melena and vomiting Review of Systems Const: Denies: fever(s) Card: Denies: chest pain Resp: Reports: dyspnea; Denies: productive cough or non-productive cough GI: Reports: nausea and other; Denies: vomiting, hematemesis, diarrhea, hematochezia or melena Psych: Reports: depression PFSH ED PFSH: Medical History (Updated 10/13/22 @ 05:51 by Solitario Cooper DO) Abdominal ascites Acne rosacea ALC (alcoholic liver cirrhosis) Alcohol dependence Bipolar disorder Cirrhosis of liver Controlled diabetes mellitus with hyperglycemia COPD (chronic obstructive pulmonary disease) DM neuropathy, painful Essential (primary) hypertension History of alcohol abuse daily use of hard liquor History of coronary artery disease History of CVA (cerebrovascular accident) 2010 Right side weakness due to a bleed History of memory loss History of schizophrenia Hypoxia Major depression, recurrent, chronic Mixed hyperlipidemia Nicotine dependence, cigarettes, uncomplicated Nicotine dependence, unspecified, uncomplicated Psoriasis Psychiatric care Schizophrenia Seizure disorder Suicidal ideation Traumatic brain injury Surgical History History of cardiac catheterization ~2014 done in [place], reports they discussed possible stent but he declined History of colonoscopy with polypectomy 2016 History of esophagogastroduodenoscopy (EGD) History of eye surgery Family History Other Dementia Diabetes Hypertension Lung disease Psychiatric illness Stroke Denies family history of Chronic kidney disease (CKD) Anesthesia complication Bleeding disorder Cancer Social History Smoking and tobacco status: current every day smoker cigarettes Packs smoked per day: 2.5 Second hand smoke exposure: Yes Alcohol intake: current Alcohol intake frequency: 3 or more drinks per day Alcohol type: hard liquor Substance/Drug Use: never Adopted: No Caregiver/support person: Yes Lives independently: No Household members: friend(s) and caregiver Housing: Manufactured/Mobile home Marital status: Number of children: 8 service: No Current occupational status: disabled Pets and animals: Yes Do you think of yourself as: Straight/Heterosexual Current gender identity: Male Physical Exam Const: COMMON NORMALS: no acute distress GENERAL APPEARANCE: cooperative, frail appearing (mildly) and appears older than stated age HENMT: COMMON NORMALS: normocephalic, atraumatic and Normal external nose present HEAD & SCALP: normocephalic and atraumatic FACE & SINUS: normal facial exam NOSE: Normal external nose present and Normal nares present Eye: COMMON NORMALS: Equal, round and reactive pupils present and EOMs intact bilaterally PUPIL: Yes Equal, round and reactive pupils present Chest: CHEST: Yes Symmetrical chest wall rise Resp: COMMON NORMALS: normal respiratory effort AUSCULTATION: rhonchi Cardio: COMMON NORMALS: regular rate and regular rhythm RATE: regular rate RHYTHM: regular rhythm GI: INSPECTION: Yes abdominal distension PALPATION: Yes Firmness to palpation present (GI) and Yes Tenderness to palpation present (GI) Extremity: COMMON NORMALS: no pedal edema Neuro: BING COMA SCALE: document GCS findings [place] coma scale eye opening: Spontaneous [place] coma scale verbal response: Orientated Bing coma scale motor response: Obey commands Bing coma scale total score: 15 Psych: COMMON NORMALS: cooperative THOUGHT CONTENT: Yes Suicidality present and Yes Homicidality present Course Vital Signs: Vital signs: Vital Signs Temperature 97.9 F 10/13/22 15:42 Pulse Rate 86 10/13/22 15:42 Respiratory Rate 19 H 10/13/22 15:42 Blood Pressure 112/64 10/13/22 11:52 Pulse Oximetry 91 10/13/22 15:42 Oxygen Delivery Me thod Nasal Cannula 10/13/22 09:03 Oxygen Flow Rate 3 10/13/22 09:03 MDM - Abdominal Pain Medical Decision Making 47-year-old male gentleman with end-stage chronic liver disease. He has had some mental status changes today. He became quite upset, and is feeling suicidal, and homicidal towards his . He is obviously not able to care for himself at home. His sodium is 131 potassium 3.7 CRP is minimally elevated at 16. His alcohol level is negative. His bilirubin is down to 1.8. His ammonia level however is elevated at 86. This may have some bearing on his mental status. I spoke with psychiatry regarding his suicidality and homicidality. The problem with this gentleman is that he is quite weak, and not able to ambulate on his own more than a couple of steps. This combined with his ammonia level being elevated preclude him from admission to the neuropsychiatric unit. Hospitalist has evaluated the patient in the ER. Recommendations are for floor admission for elevated ammonia level, IV hydration, etc. with psychiatry consult. Lab Data 10/12/22 23:34 10/12/22 23:34 Labs/Radiology: Radiology Impressions Abdomen Ultrasound 10/13/22 05:30 IMPRESSION: The drain is not identified on the provided images. Abdomen/Pelvis CT 10/13/22 10:28 IMPRESSION: 1. Interval placement of percutaneous drainage catheter whose tip lies within the peritoneal cavity right lower quadrant. 2. Cirrhosis with evidence of portal hypertension and small amount of ascites. 3. Splenomegaly unchanged possibly due to portal hypertension. 4. Mild generalized anasarca within the soft tissues presumably secondary to volume overload or hypoproteinemia. 5. Additional project developer small amount of intraluminal bladder air presumed secondary to previous catheterization. Please confirmed with history. 6. Slowly enlarging nodular soft tissue densities within the buttocks of uncertain etiology. 7. Additional chronic findings as above. Laboratory Results WBC 6.5 10^3/uL (4.0-10.0) 10/12/22 23:34 RBC 3.87 10^6/uL (4.1-5.3) L 10/12/22 23:34 Hgb 13.0 g/dL (11.7-16.6) 10/12/22 23:34 Hct 38.9 % (42.0-52.0) L 10/12/22: MCV 100.5 fl (80-94) H 10/12/22 23: MCH 33.6 pg (28.0-34.0) 10/12/22: MCHC 33.4 g/dL (30.0-36.0) 10/12/22: RDW 13.9 % (12.1-15.1) 10/12/22: Plt Count 147 10^3/cmm (130-400) 10/12/22: MPV 10.3 fL (7.4-10.4) 10/12/22: Neut % (Auto) 76.3 % 10/12/22: Lymph % (Auto) 10.5 % 10/12/22: [place] % (Auto) 10.8 % 10/12/22: Eos % (Auto) 1.4 % 10/12/22: Baso % (Auto) 0.5 % 10/12/22: Neut # (Auto) 4.95 10^3/uL (1.8-7.7) 10/12/22: Lymph # (Auto) 0.7 10^3/uL (0.8-4.8) L 10/12/22: [place] # (Auto) 0.7 10^3/uL (0.2-0.9) 10/12/22: Eos # (Auto) 0.1 10^3/uL (0.0-0.8) 10/12/22: Baso # (Auto) 0.0 10^3/uL (0.0-0.1) 10/12/22: Nucleated RBC % (auto) 0 % 10/12/22: Nucleated RBCs # 0.0 /100WBC 10/12/22: PT 17.10 SECONDS (12.1-14.9) H 10/12/22 23: INR 1.34 (0.8-1.2) H 10/12/22: Sodium 131 mmol/L (136-145) L 10/12/22: Potassium 3.7 mmol/L (3.5-5.1) 10/12/22 23:34 Chloride 93 mmol/L (98-107) L 10/12/22 23:34 Carbon Dioxide 34 mmol/L (22-29) H 10/12/22 23:34 Anion Gap 7.7 (5-19) 10/12/22 23:34 BUN 7 mg/dL (6-20) 10/12/22 23:34 Creatinine 0.4 mg/dL (0.7-1.2) L 10/12/22 23:34 GFR Calculation 228.6 mL/min (90-130) H 10/12/22 23:34 Glucose 143 mg/dL (65-115) H 10/12/22 23:34 Calculated Osmolality 272 mOsm/kg (285-295) L 10/12/22 23:34 Lactic Acid 0.9 mmol/L (0.5-2.2) 10/13/22 05:35 Calcium 8.0 mg/dL (8.5-10.5) L 10/12/22 23:34 Total Bilirubin 1.8 mg/dL (0.15-1.2) H 10/12/22 23:34 AST 108 U/L (0-40) H 10/12/22 23:34 ALT 38 U/L (0-41) 10/12/22 23:34 Alkaline Phosphatase 99 U/L (40-130) 10/12/22 23:34 Ammonia 86 umol/L (16-60) H 10/12/22 23:34 C-Reactive Protein 16.3 mg/L (0.0-4.9) H 10/12/22 23:34 Total Protein 6.2 g/dL (6.6-8.7) L 10/12/22 23:34 Albumin 2.2 g/dL (3.5-5.2) L 10/12/22 23:34 Globulin 4.0 g/dL (1.3-4.6) 10/12/22 23:34 Procalcitonin 0.08 ng/mL (0-0.5) 10/13/22 05:35 Urine Color Dunn (Yellow) 10/13/22 00:27 Urine Appearance Sl hazy (CLEAR) A 10/13/22 00:27 Urine pH 8 (5-7) H 10/13/22 00:27 Ur Specific [place] 1.005 (1.005-1.030) 10/13/22 00:27 Urine Protein Trace (Negative) 10/13/22 00:27 Urine Glucose (UA) Norm (Normal) 10/13/22 00:27 Urine Ketones 1+ (Negative) H 10/13/22 00:27 Urine Blood 2+ (Negative) H 10/13/22 00:27 Urine Nitrate Negative (Negative) 10/13/22 00:27 Urine Bilirubin 1+ (Negative) H 10/13/22 00:27 Prot Sulfosalicylic Acd Negative (Negative) 10/13/22 00:27 Urine Urobilinogen 4+ mg/dL (Negative) H 10/13/22 00:27 Ur Leukocyte Esterase 1+ (Negative) H 10/13/22 00:27 Urine RBC 25-40 /hpf (0-2) H 10/13/22 00:27 Urine WBC 0-4 /hpf (0-5) H 10/13/22 00:27 Ur Squamous Epith Cells 0-4 /hpf (0-5) H 10/13/22 00:27 Amorphous Sediment Not Reportable 10/13/22 00:27 Urine Bacteria Trace /hpf (NONE) 10/13/22 00:27 Salicylates 0.6 mg/dL (3-10) L 10/12/22 23:34 Urine Opiates Screen Negative ng/mL (Negative) 10/13/22 00:27 Acetaminophen < 5.0 ug/mL (10-30) L 10/12/22 23:34 Ur Barbiturates Screen Negative ng/mL (Negative) 10/13/22 00:27 Ur Phencyclidine Scrn Negative ng/mL (Negative) 10/13/22 00:27 Ur Amphetamines Screen Negative ng/mL (Negative) 10/13/22 00:27 U Benzodiazepines Scrn Positive ng/mL (Negative) H 10/13/22 00:27 Urine Cocaine Screen Negative ng/mL (Negative) 10/13/22 00:27 U Marijuana (THC) Screen Negative ng/mL (Negative) 10/13/22 00:27 Ethyl Alcohol < 10 mg/dL (0-10) 10/12/22 23:34 Discharge Plan Discharge Patient Disposition: Admitted As Inpatient Admit Provider: Thi Snyder Clinical Impression: Suicidal ideation, Hyperammonemia Condition: Stable Coding Level of Care Code ED Atmospheric Physics Professor for Carlos Armstrong
[2022-10-13] VITALS (7 sets, daily range): BP systolic 98–112; BP diastolic 44–64; PULSE 73–100; RESP 12–19; TEMP 36.6–37; O2SAT 90–97
[2022-10-13 00:28] LABS: INR 1.34 (0.8-1.2)
[2022-10-13 00:29] LABS: Basophils % 0.5 %; Eosinophils # 0.1 10^3/uL (0.0-0.8); Eosinophils % 1.4 %; Hematocrit 38.9 % (42.0-52.0); Lymphocytes # 0.7 10^3/uL (0.8-4.8); Lymphocytes % 10.5 %; Mean Corpuscular HGB Conc 33.4 g/dL (30.0-36.0); Mean Corpuscular Hemoglobin 33.6 pg (28.0-34.0); Mean Corpuscular Volume 100.5 fl (80-94); Mean Platelet Volume 10.3 fL (7.4-10.4); Monocytes # 0.7 10^3/uL (0.2-0.9); Monocytes % 10.8 %; Neutrophils # 4.95 10^3/uL (1.8-7.7); Neutrophils % 76.3 %; Nucleated Red Blood Cells % 0 %; Platelet Count 147 10^3/cmm (130-400); Red Blood Count 3.87 10^6/uL (4.1-5.3); Red Cell Distribution Width 13.9 % (12.1-15.1); White Blood Count 6.5 10^3/uL (4.0-10.0)
[2022-10-13 00:38] LABS: Ammonia 86 umol/L (16-60)
[2022-10-13 00:39] LABS: Alanine Aminotransferase 38 U/L (0-41); Albumin Level 2.2 g/dL (3.5-5.2); Alkaline Phosphatase 99 U/L (40-130); Anion Gap 7.7 (5-19); Aspartate Amino Transferase 108 U/L (0-40); Blood Urea Nitrogen 7 mg/dL (6-20); C Reactive Protein 16.3 mg/L (0.0-4.9); Carbon Dioxide 34 mmol/L (22-29); Chloride 93 mmol/L (98-107); Glomerular Filtration Rate 228.6 mL/min (90-130); Glucose 143 mg/dL (65-115); Osmolality Calculated 272 mOsm/kg (285-295); Potassium 3.7 mmol/L (3.5-5.1); Salicylate 0.6 mg/dL (3-10); Sodium 131 mmol/L (136-145); Total Bilirubin 1.8 mg/dL (0.15-1.2); Total Protein 6.2 g/dL (6.6-8.7)
[2022-10-13 00:43] LABS: Acetaminophen < 5.0 ug/mL (10-30); Alcohol Level < 10 mg/dL (0-10)
[2022-10-13 01:22] LABS: Glucose Urine UA Norm (Normal); Ketones Urine 1+ (Negative); Protein Urine Trace (Negative); Specific Gravity, Urine 1.005 (1.005-1.030); Urine Appearance SL Hazy (CLEAR); Urine Color Orange (Yellow); pH Urine 8 (5-7)
[2022-10-13 01:23] LABS: Add Urine Microscopic? YES; Bilirubin Urine 1+ (Negative); Blood Urine 2+ (Negative); Leukocyte Esterase Urine 1+ (Negative); Nitrate Urine Negative (Negative); Urobilinogen Urine 4+ mg/dL (Negative)
[2022-10-13 01:27] LABS: Sulfosalicylic Acid Urine Negative (Negative)
[2022-10-13 01:30] LABS: Amphetamines Screen Urine Negative (Negative); Barbiturates Screen Urine Negative (Negative); Benzodiazepines Screen Urine Positive (Negative); Cocaine Screen Urine Negative (Negative); Opiate Screen Urine Negative (Negative); PCP Screen Urine Negative (Negative); THC Screen Urine Negative (Negative)
[2022-10-13 01:53] LABS: Bacteria Urine TRACE /hpf; Squamous Epithelial Cell Urine 0-4 /hpf (0-5); WBC Urine 0-4 /hpf (0-5)
[2022-10-13 01:54] LABS: RBC Urine 25-40 /hpf (0-2)
--- NOTE | 2022-10-13 05:23 | P.HP_ITS ---
Providers/Chief Complaint Primary Care Provider: YENI Perez Chief Complaint: ABD PAIN History of Present Illness Reinaldo Flores is a 47 year old male with a past medical history of schizophrenia, major depressive disorder, noninsulin-dependent type 2 diabetes mellitus, COPD, alcohol dependence, alcoholic liver cirrhosis, recently hospitalized, with liver failure, had peritoneal drain placed due to recurrent ascites, discharged home with hospice services, who presents back to [facility] due to suicidal ideation, hydroma Keven ideation, and active drainage around his peritoneal drain site. Patient tells that when he got home, he had continuous drainage around the peritoneal drain site, it saturated all h is close, and continued to leak, here in the emergency room he tells me that it leaked all over the floor, although it was drained at home, he reports fevers, he reports chills, no nausea, no vomiting, he reports active suicidal ideation, that he wants to kill himself, and that he wants to kill his ex-, he is not able to provide a plan, but does continue to report active suicidal and homicidal ideation. He does report that when he got home he had a drink of vodka he tells me not much. Review of Systems Const: Denies: fever(s) Card: Denies: chest pain Resp: Denies: dyspnea GI: Reports: abdominal pain Psych: Reports: suicidal ideation and homicidal ideation Medications/Allergies Home Medications Medication Instructions Recorded Confirmed Last Taken Type levetiracetam 750 mg tablet 750 mg PO BID 30 days #60 tabs 06/12/22 10/05/22 09/28/22 Rx lactulose 10 gram/15 mL oral 30 ml PO TID PRN Constipation 07/13/22 10/05/22 09/28/22 History solution citalopram 20 mg tablet (Celexa) 20 mg PO DAILY #30 tabs 08/10/22 10/05/22 09/28/22 Rx paliperidone 6 mg tablet,extended 6 mg PO QAM #14 tabs 08/10/22 10/05/22 0 09/28/22 Rx release 24 hr (Invega) paliperidone palmitate 234 mg/1.5 234 mg (1.5 mL) IM Q30D #1.5 mL 08/10/22 10/05/22 09/28/22 Rx mL intramuscular syringe (Invega Sustenna) furosemide 20 mg tablet (Lasix) 20 mg PO DAILY #90 tabs 10/12/22 Unknown Rx lactulose 20 gram/30 mL oral 20 g (30 mL) PO DAILY #2,880 mL 10/12/22 Unknown Rx solution spironolactone 100 mg tablet 100 mg PO DAILY #60 tabs 10/12/22 10/05/22 09/28/22 Rx thiamine HCl (vitamin B1) 100 mg 100 mg PO DAILY #90 tabs 10/12/22 Unknown Rx tablet Allergies Allergy/AdvReac Type Severity Reaction Status Date / Time clozapine [From Clozaril] AdvReac Severe Lowered Verified 10/04/22 22:18 his WBC he says divalproex sodium AdvReac Severe swelling Verified 10/04/22 22:18 [From Depakote] haloperidol [From Haldol] AdvReac Severe swelling Verified 10/04/22 22:18 nitroglycerin AdvReac Severe Stopped Verified 10/04/22 22:18 heart Bee stings Allergy Severe Swelling & Uncoded 10/04/22 22:18 breathing problems, Anaphylactic shock PFSH Acute PFSH: Medical History (Updated 10/13/22 @ 05:29 by Owen Pierce MD) Abdominal ascites Acne rosacea ALC (alcoholic liver cirrhosis) Alcohol dependence Bipolar disorder Cirrhosis of liver Controlled diabetes mellitus with hyperglycemia COPD (chronic obstructive pulmonary disease) DM neuropathy, painful Essential (primary) hypertension History of alcohol abuse daily use of hard liquor History of coronary artery disease History of CVA (cerebrovascular accident) 2009 Right side weakness due to a bleed History of memory loss History of schizophrenia Hypoxia Major depression, recurrent, chronic Mixed hyperlipidemia Nicotine dependence, cigarettes, uncomplicated Nicotine dependence, unspecified, uncomplicated Psoriasis Psychiatric care Schizophrenia Seizure disorder Suicidal ideation Traumatic brain injury Surgical History History of cardiac catheterization ~2014 done in [place], reports they discussed possible stent but he declined History of colonoscopy with polypectomy 2016 History of esophagogastroduodenoscopy (EGD) History of eye surgery Family History Other Dementia Diabetes Hypertension Lung disease Psychiatric illness Stroke Denies family history of Chronic kidney disease (CKD) Anesthesia complication Bleeding disorder Cancer Social History Smoking and tobacco status: current every day smoker cigarettes Packs smoked per day: 2.5 Second hand smoke exposure: Yes Alcohol intake: current Alcohol intake frequency: 3 or more drinks per day Alcohol type: hard liquor Substance/Drug Use: never Adopted: No Caregiver/support person: Yes Lives independently: No Household members: friend(s) and caregiver Housing: Manufactured/Mobile home Marital status: Number of children: 8 service: No Current occupational status: disabled Pets and animals: Yes Do you think of yourself as: Straight/Heterosexual Current gender identity: Male Vitals/I&O/Wt Last Vital Signs Temp 98.4 F 10/12/22 22:25 Pulse 121 H 10/12/22 22:25 Resp 18 10/12/22 22:25 BP 121/69 10/12/22 22:25 Pulse Ox 91 10/12/22 22:25 O2 Del Method Room Air 10/12/22 22:25 Physical Exam Const: COMMON NORMALS: no acute distress and patient oriented x3 HENMT: COMMON NORMALS: normocephalic HEAD & SCALP: normocephalic Eye: COMMON NORMALS: Equal, round and reactive pupils present Neck/C-Spine: COMMON NORMALS: no JVD Lymph: LYMPHATIC: no lymphadenopathy noted Resp: COMMON NORMALS: normal respiratory effort, No retractions, No use of accessory muscles and clear to auscultation bilaterally AUSCULTATION: clear to auscultation bilaterally Cardio: COMMON NORMALS: no JVD, regular rate, regular rhythm, S1 normal heart sound present and S2 normal heart sound present RATE: regular rate RHYTHM: regular rhythm HEART SOUNDS: S1 normal heart sound present and S2 normal heart sound present GI: COMMON NORMALS: Normal to inspection, nondistended, normoactive bowel sounds present, Soft to palpation, non-tender, no masses and no bruits PALPATION: Yes Soft to palpation OTHER: Peritoneal drain in place, with drainage around PD site, saturating clothing and bedding Extremity: COMMON NORMALS: no pedal edema Neuro: COMMON NORMALS: patient oriented x3, CN's II-XII intact bilaterally and moves all extremities Psych: COMMON NORMALS: mental status grossly normal Data 10/12/22 23:34 05/05/23 23:34 A&P Assessment and plan (1) Hyperammonemia: (2) Chronic hyponatremia: (3) Alcohol dependence: (4) Homicidal ideation: (5) UTI (urinary tract infection): Plan Suicidal ideation, homicidal ideation -Active -No plan -Placed on suicide precautions -96-hour hold to be filled out by ER -Psychiatry consulted PD catheter -Continues to have leakage around PD site, active, -We will order ultrasound -Discussed with surgery in a.m. UTI, [employer] Alcohol dependence, had a drink of alcohol before he came to the hospital Hyperammonemia, increase lactulose to 20 g 3 times daily Attestations Medical Necessity Statement*: Patient requires hospitalization for UTI, hyperammonemia, homicidal ideation, suicidal ideation, inpatient, greater than 2 midnights Diagnoses Hyperammonemia E72.20 Chronic hyponatremia E87.1 Alcohol dependence F10.20 Homicidal ideation R45.850 UTI (urinary tract infection) N39.0
--- NOTE | 2022-10-13 05:30 | USR_ITS ---
PROCEDURE INFORMATION: Exam: US Abdomen; Limited Exam date and time: 10/13/2022 5:45 AM Age: 47 years old Clinical indication: Device placement; Non-vascular device; Retroperitoneal shunt; Additional info: Pd placement TECHNIQUE: Imaging protocol: Real time ultrasound of the abdomen with image documentation. Limited exam focused on the region of clinical interest. COMPARISON: US paracentesis abd w [id number] 10/05/2022 8:25 AM FINDINGS: Other findings: The drain is not identified on the provided images. US/US abdomen limited [id number] IMPRESSION: The drain is not identified on the provided images.
[2022-10-13 06:05] LABS: Procalcitonin 0.08 ng/mL (0-0.5)
[2022-10-13 06:26] LABS: Lactic Sepsis W/Reflex 0.9 mmol/L (0.5-2.2)
--- NOTE | 2022-10-13 10:28 | CTR_ITS ---
PROCEDURE INFORMATION: Exam: CT Abdomen And Pelvis Without Contrast Exam date and time: 10/13/2022 2:34 PM Age: 47 years old Clinical indication: Device placement; Non-vascular device; Other: Peritoneal drain for ascites; Prior surgery; Surgery type: Egd; Colonoscopy w/polypectomy; Additional info: Identification of peritoneal drain placed for ascites dnge. , Ultrasound of 10/12/2022 reports unable to visualize drain TECHNIQUE: Imaging protocol: Computed tomography of the abdomen and pelvis without contrast. Radiation optimization: All CT scans at this facility use at least one of these dose optimization techniques: automated exposure control; mA and/or kV adjustment per patient size (includes targeted exams where dose is matched to clinical indication); or iterative reconstruction. REPORTING DATA: Count of CT and Cardiac NM exams in prior 12 months: This patient has received 11 known CTs and 0 known cardiac nuclear medicine studies in the 12 months prior to the current study. COMPARISON: CT abdomen pelvis wo con [id number] 08/21/2022 3:26 AM RADIATION DOSE METRICS: Total DLP (mGy-cm): 819.53 FINDINGS: Tubes, catheters and devices: There is a percutaneously placed drainage catheter within the pelvis extending from the left lower abdominal wall terminating in the right infra colic gutter. Lungs: There are scattered granulomatous calcifications within the mediastinum. Liver: Liver has a mildly cirrhotic contour with heterogeneous attenuation that may be due to focal fatty infiltration but difficult to adequately assessed on this noncontrast study. Gallbladder and bile ducts: Few small nodular densities within the gallbladder lumen suspicious for noncalcified gallstones. No biliary dilatation. Pancreas: Unremarkable. Main pancreatic duct is not significantly dilated. Spleen: Spleen is enlarged measuring 17 cm in greatest dimension. Adrenal glands: Left adrenal gland obscured by adjacent portosystemic collaterals.. Right adrenal gland is unremarkable. Kidneys and ureters: Kidneys are unremarkable. No calculi or hydronephrosis detected. Stomach and bowel: Mild-moderate degree of retained stool left half of the colon with scattered diverticuli. No evidence of acute diverticulitis. Appendix: No evidence of appendicitis. Intraperitoneal space: There is a small amount of ascites within the abdomen and pelvis. There is mildly accentuated portosystemic collaterals in the upper abdomen suggestive of portal hypertension. Vasculature: Abdominal aorta and iliac vessels are diffusely calcified. There is no aortic aneurysm. Lymph nodes: Unremarkable. No enlarged lymph nodes. Urinary bladder: There is a small amount of intraluminal air within the urinary bladder that may be due to recent catheterization that should be confirmed with history. Reproductive: Unremarkable as visualized. Bones/joints: Mild compression fracture of T8 vertebral body unchanged. Soft tissues: There is mild anasarca within the soft tissues likely due to either hypoproteinemia or volume overload. There is a small amount of air within the left lower abdominal wall that may be due to subcutaneous injections. There few nodular soft tissue densities within the buttocks superficial to the gluteal musculature increased in size from previous exam of uncertain etiology. CT/CT abdomen pelvis wo con [id number] IMPRESSION: 1. Interval placement of percutaneous drainage catheter whose tip lies within the peritoneal cavity right lower quadrant. 2. Cirrhosis with evidence of portal hypertension and small amount of ascites. 3. Splenomegaly unchanged possibly due to portal hypertension. 4. Mild generalized anasarca within the soft tissues presumably secondary to volume overload or hypoproteinemia. 5. 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 Please confirmed with history. 6. Slowly enlarging nodular soft tissue densities within the buttocks of uncertain etiology. 7. Additional chronic findings as above.
--- NOTE | 2022-10-13 10:32 | PM.PN ---
Subjective Subjective: My abdomen is still leaking Vitals/I&O/Wt Last Vital Signs Temp 98.4 F 10/12/22 22:25 Pulse 100 10/13/22 08:55 Resp 18 10/13/22 08:55 BP 121/69 10/12/22 22:25 Pulse Ox 96 10/13/22 09:03 O2 Del Method Nasal Cannula 10/13/22 09:03 O2 Flow Rate 3 10/13/22 09:03 Physical Exam GI: OTHER: Clear serous fluid from midline puncture site. Tube is currently clamped. Data 10/12/22 23:34 10/12/22 23:34 A&P Assessment and plan (1) Ascites due to alcoholic cirrhosis: Plan Chronic ascites. I read the ultrasound report from early this morning and the radiologist was unable to find the drainage catheter. I've requested CT without contrast to try to find this and ensure its position. In the meantime, I requested dependent drainage for now to try to slow the leakage from this tube. Attestations Medical Necessity Statement*: Persistent ascites with displaced catheter. Will need two midnights further. Coding Level of Care Code Acute Code for Chg Fwd Diagnoses Ascites due to alcoholic cirrhosis K70.31
[2022-10-13] MEDS: cefTRIAXone 1,000 MG in sodium chloride 0.9% (plus) 50 ML 100 MG IV (10:52)
[2022-10-13] MEDS: levETIRAcetam 500 mg Tablet 750 MG PO ×2 (10:59→17:47)
[2022-10-13] MEDS: pantoprazole 40 mg SDV IVP (10:59)
[2022-10-13] MEDS: thiamine 100 mg Tablet PO (10:59)
[2022-10-13] MEDS: citalopram 20 mg Tablet PO (10:59)
[2022-10-13] MEDS: lactulose oral liq 20 gm/30 mL UDC PO ×2 (10:59→17:47)
[2022-10-13] MEDS: FUROsemide 20 mg Tablet PO (10:59)
[2022-10-13 11:00] LABS: Thyroid Stimulating Hormone 3.11 uIU/mL (0.27-4.20)
[2022-10-13] MEDS: enoxaparin 40 mg/0.4 mL Syringe SUBCUT (11:00)
[2022-10-13 11:18] LABS: Estmated Average Glucose 97
[2022-10-13 11:28] LABS: Glucose Point of Care 120 mg/dL (70-110)
--- NOTE | 2022-10-13 12:56 | PM.MISC ---
Miscellaneous Note Purpose of Documentation: overnight labs and H&P reviewed. no acute interim events Pending CT scan to ascertain location of peritoneal catheter Continue diuretics, pending psych consult confirmed that patient is not on home hospice since he is not hospice appropriate. His refusal to see hepatology and undergo any further w/up stems most likely from his depression and not a result of futility of treatment
[2022-10-13] MEDS: ondansetron 2 mg/ML SDV 2 mL 4 MG IVP (15:47)
[2022-10-13 17:13] LABS: Glucose Point of Care 111 mg/dL (70-110)
[2022-10-13 20:49] LABS: Glucose Point of Care 115 mg/dL (70-110)
[2022-10-14] VITALS (10 sets, daily range): BP systolic 92–108; BP diastolic 41–65; PULSE 70–88; RESP 14–17; TEMP 36.6–37.4; O2SAT 93–98
[2022-10-14] MEDS: lactulose oral liq 20 gm/30 mL UDC PO ×3 (00:02→17:33)
[2022-10-14 06:36] LABS: Glucose Point of Care 107 mg/dL (70-110)
[2022-10-14] MEDS: citalopram 20 mg Tablet PO (09:24)
[2022-10-14] MEDS: spironolactone 25 mg Tablet 100 MG PO (09:24)
[2022-10-14] MEDS: enoxaparin 40 mg/0.4 mL Syringe SUBCUT (09:24)
[2022-10-14] MEDS: levETIRAcetam 500 mg Tablet 750 MG PO ×2 (09:24→17:33)
[2022-10-14] MEDS: FUROsemide 20 mg Tablet PO (09:24)
[2022-10-14] MEDS: cefTRIAXone 1,000 MG in sodium chloride 0.9% (plus) 50 ML 100 MG IV (09:24)
[2022-10-14] MEDS: pantoprazole 40 mg SDV IVP (09:25)
--- NOTE | 2022-10-14 10:06 | PM.PN ---
Subjective Subjective: [Patient asleep at time of my visit. Talked with family] Vitals/I&O/Wt Last Vital Signs Temp 98 F 10/14/22 08:00 Pulse 88 10/14/22 08:00 Resp 16 10/14/22 08:00 BP 108/56 10/14/22 08:00 Pulse Ox 96 10/14/22 08:00 O2 Del Method Nasal Cannula 10/14/22 08:00 O2 Flow Rate 2 10/14/22 08:00 10/13/22 10/14/22 10/14/22 22:59 06:59 14:59 Intake Total 240 / 290 240 / 530 480 / 480 Output Total 200 / 200 Balance 240 / 290 40 / 330 480 / 480 Data 10/12/22 23:34 10/12/22 23:34 Micro: Microbiology 10/13/22 10:19 Blood Culture - Preliminary Blood SPECIMEN COLLECTED 10/13/22 10:11 Blood Culture - Preliminary Blood SPECIMEN COLLECTED CT Abd/Pel: My impression: Drain identified in appropriate position. A&P Assessment and plan (1) Ascites due to alcoholic cirrhosis: Plan Drain in appropriate position. Patient stable. All questions answered with family. Defer to primary physicians regarding further disposition. Attestations Medical Necessity Statement*: Patient with ascites and incomplete drainage. Hospitalization of 2 midnights will be necessary to resolve this problem. Coding Level of Care Code Acute Code for Chg Fwd Diagnoses Ascites due to alcoholic cirrhosis K70.31
[2022-10-14 10:39] LABS: Glucose Point of Care 110 mg/dL (70-110)
--- NOTE | 2022-10-14 15:30 | PM.PN ---
Subjective Subjective: no acute interim events. Denies any new complaints except for leakage around the peritoneal drain site. CT of the abdomen confirmed intra-abdominal location. Awaiting psychiatry assessment. Medications: Reviewed: Yes Vitals/I&O/Wt Last Vital Signs Temp 98 F 10/14/22 08:00 Pulse 85 10/14/22 12:00 Resp 16 10/14/22 12:00 BP 105/50 10/14/22 12:00 Pulse Ox 93 10/14/22 12:00 O2 Del Method Nasal Cannula 10/14/22 08:00 O2 Flow Rate 2 10/14/22 08:00 10/14/22 10/14/22 10/14/22 06:59 14:59 22:59 Intake Total 240 / 530 840 / 840 Output Total 200 / 200 Balance 40 / 330 840 / 840 Physical Exam Narrative: General: No acute distress, AO x3 HEENT: PERRLA, pupils bilaterally equal and reactive, pallors not present Chest: Normal vesicular breath sounds, no added sounds, equal good air entry bilaterally CVS: S1-S2 regular, no murmurs, no tachycardia, no gallops, no rubs Abdomen: Soft, nontender, no organomegaly, bowel sounds present, peritoneal drain with leakage around the site of insertion Neuro: No focal deficits, no facial deformity, AO x3, power 5/5 in all limbs Data 10/12/22 23:34 10/12/22 23:34 Micro: Microbiology 10/13/22 10:19 Blood Culture - Preliminary Blood NEGATIVE TO DATE 10/13/22 10:11 Blood Culture - Preliminary Blood NEGATIVE TO DATE A&P Assessment and plan (1) Hyperammonemia: (2) Chronic hyponatremia: (3) Alcohol dependence: (4) Homicidal ideation: (5) UTI (urinary tract infection): Plan # Suicidal ideation, homicidal ideation -awaiting psych assessment and plan -No active plan -Placed on suicide precautions # Peritoneal drain catheter due to need for recurrent paracentesis -Continues to have leakage around PD site - Position confirmed on Ct abdomen - will place colostomy bag around indertion site to try to contain leakage # UTI, Rocephin # Alcohol dependence, had a drink of alcohol before he came to the hospital, no current signs of withdrawal but at risk of this # Hyperammonemia,continue lactulose to 20 g 3 times daily Attestations Medical Necessity Statement*: pending psych assessment Coding Level of Care Code Acute Code for Chg Fwd Diagnoses Hyperammonemia E72.20 Chronic hyponatremia E87.1 Alcohol dependence F10.20 Homicidal ideation R45.850 UTI (urinary tract infection) N39.0
[2022-10-14] MEDS: thiamine 100 mg Tablet PO (17:33)
[2022-10-14 17:40] LABS: Glucose Point of Care 147 mg/dL (70-110)
--- NOTE | 2022-10-14 18:00 | P.NPUCON_ITS ---
Providers/Reason for Consult Consulting Physican/Specialty*: Simeon Mahan MD/Psychiatry Reason for Consult*: suicidal ideation Attending Physician: Thi Snyder MD Primary Care Provider: YENI Perez Psych Consult HPI History of Present Illness Reinaldo Flores is a 47 year old male with a past medical history of schizophrenia, major depressive disorder, noninsulin-dependent type 2 diabetes mellitus, COPD, alcohol dependence, alcoholic liver cirrhosis recently hospitalized for liver failure who presented back in the hospital with recurrent ascites. He has a past history of schizoaffective disorder and alcohol dependence. He had been placed on a 96-hour hold per chart for suicidal ideation. He was interviewed today and the patient was familiar with the group underwriter of this note. He had reported not having any suicidal thoughts at this time. He had expressed significant problems with his current and agreed that her the home situation was volatile but that he had no desire to hurt her or himself. He had reported that he had continued to drink alcohol and that that was his right and intention. He had reported no plan to hurt himself. There h ave been no substantiated changes noted from his previous evaluation in the last week. He had noted that he had not had his intramuscular Invega in several weeks and was due . This is an obese white male with hospital gown on with intermittent eye contact and poor grooming [facility].? Significant arriaza.? He was cooperative with exam in mild? distress.? His speech was decreased rate and volume.? Mood described as better. ? His affect was subdued.? Thought process:linear, logical? Thought content: Patient denied suicidal or homicidal ideation.? There were no delusions reported or noted, he denied any auditory or visual hallucinations currently. ? Attention and concentration appeared intact and memory was mostly reliable but none were formally tested.? The alert and oriented x3.? Insight, judgment and impulse control are limited Meds Home Medications and Allergies Home Medications Medication Instructions Recorded Confirmed Last Taken Type levetiracetam 750 mg tablet 750 mg PO BID 30 days #60 tabs 06/12/22 10/13/22 09/28/22 Rx citalopram 20 mg tablet (Celexa) 20 mg PO DAILY #30 tabs 08/10/22 10/13/22 09/28/22 Rx paliperidone 6 mg tablet,extended 6 mg PO QAM #14 tabs 08/10/22 10/13/22 09/28/22 Rx release 24 hr (Invega) paliperidone palmitate 234 mg/1.5 234 mg (1.5 mL) IM Q30D #1.5 mL 08/10/22 10/13/22 09/28/22 Rx mL intramuscular syringe (Invega Sustenna) furosemide 20 mg tablet (Lasix) 20 mg PO DAILY #90 tabs 10/12/22 10/13/22 Unkno wn Rx lactulose 20 gram/30 mL oral 20 g (30 mL) PO DAILY #2,880 mL 10/12/22 10/13/22 Unknown Rx solution spironolactone 100 mg tablet 100 mg PO DAILY #60 tabs 10/12/22 10/13/22 09/28/22 Rx thiamine HCl (vitamin B1) 100 mg 100 mg PO DAILY #90 tabs 10/12/22 10/13/22 Unknown Rx tablet gabapentin 400 mg capsule 400 mg PO TID 10/13/22 10/13/22 Unknown History metformin 500 mg tablet,extended 500 mg PO BID 10/13/22 10/13/22 Unknown History release 24 hr trazodone 50 mg tablet 50 mg PO BEDTIME 10/13/22 10/13/22 Unknown History Allergies Allergy/AdvReac Type Severity Reaction Status Date / Time clozapine [From Clozaril] AdvReac Severe Lowered Verified 10/04/22 22:18 his WBC he says divalproex sodium AdvReac Severe swelling Verified 10/04/22 22:18 [From Depakote] haloperidol [From Haldol] AdvReac Severe swelling Verified 10/04/22 22:18 nitroglycerin AdvReac Severe Stopped Verified 10/04/22 22:18 heart Bee stings Allergy Severe Swelling & Uncoded 10/04/22 22:18 breathing problems, Anaphylactic shock Current Medications Current Medications Generic Name Dose Route Start Last Admin Trade Name Freq PRN Reason Stop Dose Admin Citalopram Hydrobromide 20 mg 10/13/22 09:02 10/14/22 09:24 Citalopram 20 Mg Tablet PO 20 mg DAILY SAMANTA Administration Enoxaparin Sodium 40 mg 10/13/22 09:02 10/14/22 09:24 Enoxaparin 40 Mg/0.4 Ml Syringe SUBCUT 40 mg Q24H SAMANTA Administration Furosemide 20 mg 10/13/22 09:02 10/14/22 09:24 Furosemide 20 Mg Tablet PO 20 mg DAILY SAMANTA Administration Ceftriaxone Sodium 1,000 mg/ 50 mls @ 100 mls/hr 10/13/22 09:02 10/14/22 09:24 Sodium Chloride IV 100 mls/hr Q24H SAMANTA Administration Protocol Lactulose 20 gm 10/13/22 09:02 10/14/22 17:33 Lactulose Oral Liq 20 Gm/30 Ml Udc PO 20 gm Q8H SAMANTA Administration Levetiracetam 750 mg 10/13/22 09:30 10/14/22 17:33 Levetiracetam 500 Mg Tablet PO 750 mg BID SAMANTA Administration Ondansetron HCl 4 mg 10/13/22 09:02 10/13/22 15:47 Ondansetron 2 Mg/Ml Sdv 2 Ml IVP 4 mg Q8H PRN Administration vomiting, or N/V if npo Pantoprazole Sodium 40 mg 10/13/22 09:02 10/14/22 09:25 Pantoprazole 40 Mg Sdv IVP 40 mg Q24H SAMANTA Administration Spironolactone 100 mg 10/14/22 09:00 10/14/22 09:24 Spironolactone 25 Mg Tablet PO 100 mg DAILY SAMANTA Administration Thiamine Mononitrate 100 mg 10/13/22 09:15 10/14/22 17:33 Thiamine 100 Mg Tablet PO 100 mg DAILY SAMANTA Administration PFSH NPU PFSH: Medical History (Updated 10/13/22 @ 05:51 by Solitario Cooper DO) Abdominal ascites Acne rosacea ALC (alcoholic liver cirrhosis) Alcohol dependence Bipolar disorder Cirrhosis of liver Controlled diabetes mellitus with hyperglycemia COPD (chronic obstructive pulmonary disease) DM neuropathy, painful Essential (primary) hypertension History of alcohol abuse daily use of hard liquor History of coronary artery disease History of CVA (cerebrovascular accident) 2010 Right side weakness due to a bleed History of memory loss History of schizophrenia Hypoxia Major depression, recurrent, chronic Mixed hyperlipidemia Nicotine dependence, cigarettes, uncomplicated Nicotine dependence, unspecified, uncomplicated Psoriasis Psychiatric care Schizophrenia Seizure disorder Suicidal ideation Traumatic brain injury Surgical History History of cardiac catheterization ~2014 done in [place], reports they discussed possible stent but he declined History of colonoscopy with polypectomy 2016 History of esophagogastroduodenoscopy (EGD) History of eye surgery Family History Other Dementia Diabetes Hypertension Lung disease Psychiatric illness Stroke Denies family history of Chronic kidney disease (CKD) Anesthesia complication Bleeding disorder Cancer Social History Smoking and tobacco status: current every day smoker cigarettes Packs smoked per day: 2.5 Second hand smoke exposure: Yes Alcohol intake: current Alcohol intake frequency: 3 or more drinks per day Alcohol type: hard liquor Substance/Drug Use: never Adopted: No Caregiver/support person: Yes Lives independently: No Household members: friend(s) and caregiver Housing: Manufactured/Mobile home Marital status: Number of children: 8 service: No Current occupational status: disabled Pets and animals: Yes Do you think of yourself as: Straight/Heterosexual Current gender identity: Male Mental Status Exam MSE Comments: This is an obese white male with a signficant arriaza wearing a hospital gown on with intermittent eye contact and poor grooming lying in his [facility] bed. He was cooperative with exam in mild distress. His speech was decreased rate and volume. Mood described as allright. His affect was subdued. Thought process:linear, logical Thought content: Patient denied suicidal or homicidal ideation. There were no delusions reported or noted, he denied any auditory or visual hallucinations currently. Attention and concentration appeared intact and memory was mostly reliable but none were formally tested. The alert and oriented x3. Insight, judgment and impulse control are limited. Vitals/I&O/Wt Last Vital Signs Temp 99.4 F 10/14/22 16:00 Pulse 74 10/14/22 16:00 Resp 16 10/14/22 12:00 BP 106/65 10/14/22 16:00 Pulse Ox 94 10/14/22 16:00 O2 Del Method Nasal Cannula 10/14/22 08:00 O2 Flow Rate 2 10/14/22 08:00 10/14/22 10/14/22 10/14/22 06:59 14:59 22:59 Intake Total 240 / 530 840 / 840 360 / 1200 Output Total 200 / 200 Balance 40 / 330 840 / 840 360 / 1200 Data NPU 10/12/22 23:34 10/12/22 23:34 Micro: Microbiology 10/13/22 10:19 Blood Culture - Preliminary Blood NEGATIVE TO DATE 10/13/22 10:11 Blood Culture - Preliminary Blood NEGATIVE TO DATE Microbiology 10/13/22 10:19 Blood Blood Culture - Preliminary NEGATIVE TO DATE 10/13/22 10:11 Blood Blood Culture - Preliminary NEGATIVE TO DATE A&P Assessment and plan (1) Schizophrenia: (2) Major depression, recurrent, chronic: (3) ALC (alcoholic liver cirrhosis): (4) Traumatic brain injury: (5) Alcohol dependence: Plan The patient is a 47-year-old white male with schizophrenia, major depressive disorder and alcohol dependence with continued drinking in the face of end-stage liver disease with continued ascites admitted with homicidal ideation with active medical problems including a cirrhotic liver. 1.? Continue current medications. 2.? Do not recommend inpatient hospitalization at this time. Recommend Rola?Evaluation?of Living Skills OT evaluation to be completed. He may struggle with management of his own care. 3.? CIWA protocol for alcohol withdrawal. 4. Recommend IM dose of Invega to be given LUNA. Involuntary Hold Information 96 Hour Hold: 96 Hour Involuntary Admission: No 96 Hour Hold Ending Date: 06/12/22 96 Hour Hold Ending Time: 14:00 Attestations NPU Medical Necessity Statement*: N/A. Please see primary team note for medical necessity as inpatient psychiatric treatment no longer necessary. Coding Level of Care Code Acute Code for [facility] Fw Diagnoses Schizophrenia F20.9 Major depression, recurrent, chronic F33.9 ALC (alcoholic liver cirrhosis) K70.30 Traumatic brain injury S06.9X9A Alcohol dependence F10.20
[2022-10-14 20:32] LABS: Glucose Point of Care 132 mg/dL (70-110)
[2022-10-15] VITALS (10 sets, daily range): BP systolic 92–127; BP diastolic 58–81; PULSE 66–88; RESP 16–18; TEMP 36.3–36.7; O2SAT 94–98
[2022-10-15] MEDS: lactulose oral liq 20 gm/30 mL UDC PO ×2 (00:03→08:20)
[2022-10-15 06:28] LABS: Glucose Point of Care 116 mg/dL (70-110)
[2022-10-15] MEDS: levETIRAcetam 500 mg Tablet 750 MG PO ×2 (08:20→17:10)
[2022-10-15] MEDS: enoxaparin 40 mg/0.4 mL Syringe SUBCUT (08:20)
[2022-10-15] MEDS: FUROsemide 20 mg Tablet PO (08:20)
[2022-10-15] MEDS: thiamine 100 mg Tablet PO (08:20)
[2022-10-15] MEDS: spironolactone 25 mg Tablet 100 MG PO (08:20)
[2022-10-15] MEDS: citalopram 20 mg Tablet PO (08:21)
[2022-10-15] MEDS: cefTRIAXone 1,000 MG in sodium chloride 0.9% (plus) 50 ML 100 MG IV (08:21)
[2022-10-15] MEDS: pantoprazole 40 mg SDV IVP (08:51)
--- NOTE | 2022-10-15 10:39 | PC.CHAP ---
Pastoral Care Encounter/Spiritual Assessment Type of Contact [] Declined window cutter visit [] Patient/Family/Request visit [] Outpatient visit [] Follow-up visit [] Physician referral [] Code/Alert [x] Routine visit [] Staff referral [] Actively dying [] Patient sleeping [] Family support [] [] Out of room [] Palliative care [] [] Receiving care in room [] Pre-surgical visit [] Trauma [] Long length of stay [] ICU visit [] Other: Relational/Emotional Strength [] Patient feels connected with others/family/visitors/staff [] Distress [] Loneliness/isolation [] Abandonment Spirituality of Patient [] Person of Cecilia [] Attends Taoist of their Cecilia [] Believes in Prayer [] Reads Bible or Presybeterian materials [] There are Spiritual issues to be addressed Personal Banking Representative Interventions [x] Prayer [] Active listening [] Non-anxious presence [] Spiritual/emotional support [] Crisis/trauma care [] Spiritual counseling [] Bereavement support [] Provided bereavement packet [] Provided Bible/devotional materials [] Provided toy/stuffed animal, coloring book to patient or family member [] Provided Communion [] Anointing/[place] [] Salvation [] Completed spiritual assessment [] Other: Impact on Illness or Injury [] Angry [] Fearful [] Anxious [] Often cries [] Exhaustion [] Unable to work [] Unable to attend jewish [] Unable to walk/stand [] Unable to read [] Unable to drive [] Unable to eat/drink [] Unable to sleep [] Unable to be with family [] Patient intubated [] Other: Summary Time spent with patient
[2022-10-15 11:29] LABS: Glucose Point of Care 136 mg/dL (70-110)
[2022-10-15] MEDS: morphine 4 mg/mL SDV 1 mL 1 MG IVP (11:50)
--- NOTE | 2022-10-15 15:30 | PM.PN ---
Subjective Subjective: Patient was seen and examined this morning he was complaining of abdominal pain, denied any suicidal or homicidal ideation. Medications: Reviewed: Yes Medication Review Details: Generic Name Dose Route Start Last Admin Trade Name Abiel PRN Reason Stop Dose Admin Citalopram Hydrobr omide 20 mg 10/13/22 09:02 10/15/22 08:21 Citalopram 20 Mg Tablet PO 20 mg DAILY SAAMNTA Administration Enoxaparin Sodium 40 mg 10/13/22 09:02 10/15/22 08:20 Enoxaparin 40 Mg /0.4 Ml Syringe SUBCUT 40 mg Q24H SAMANTA Administration Furosemide 20 mg 10/13/22 09:02 10/15/22 08:20 Furosemide 20 Mg Tablet PO 20 mg DAILY SAMANTA Administration Ceftriaxone Sodium 1,000 mg/ 50 mls @ 100 mls/ hr 10/13/22 09:02 10/15/22 09:24 Sodium Chloride IV Infused Q24H SAMANTA Infusion Protocol Lactulose 20 gm 10/13/22 09:02 10/15/22 08:20 Lactulose Oral L iq 20 Gm/30 Ml Udc PO 20 gm Q8H SAMANTA Administration Levetiracetam 750 mg 10/13/22 09:30 10/15/22 08:20 Levetiracetam 50 0 Mg Tablet PO 750 mg BID SAMANTA Administration Ondansetron HCl 4 mg 10/13/22 09:02 10/13/22 15:47 Ondansetron 2 Mg /Ml Sdv 2 Ml IVP 4 mg Q8H PRN Administration vomiting, or N/V if npo Pantoprazole Sodiu m 40 mg 10/13/22 09:02 10/15/22 08:51 Pantoprazole 40 Mg Sdv IVP 40 mg Q24H SAMANTA Administration Spironolactone 100 mg 10/14/22 09:00 10/15/22 08:20 Spironolactone 2 5 Mg Tablet PO 100 mg DAILY SAMANTA Administration Thiamine Mononitra te 100 mg 10/13/22 09:15 10/15/22 08:20 Thiamine 100 Mg Tablet PO 100 mg DAILY SAMANTA Administration Vitals/I&O/Wt Last Vital Signs Temp 97.4 F L 10/15/22 12:00 Pulse 88 10/15/22 12:00 Resp 18 10/15/22 12:00 BP 103/58 10/15/22 12:00 Pulse Ox 96 10/15/22 12:00 O2 Del Method Nasal Cannula 10/15/22 12:00 O2 Flow Rate 2 10/15/22 08:00 10/15/22 10/15/22 10/15/22 06:59 14:59 22:59 Intake Total 240 / 1730 290 / 290 Balance 240 / 1730 290 / 290 Physical Exam Const: COMMON NORMALS: patient oriented x3 HENMT: COMMON NORMALS: normocephalic and atraumatic HEAD & SCALP: normocephalic and atraumatic Resp: COMMON NORMALS: clear to auscultation bilaterally EFFORT & INSPECTION: Yes symmetric chest movement AUSCULTATION: clear to auscultation bilaterally Cardio: COMMON NORMALS: regular rate, regular rhythm, S1 normal heart sound present, S2 normal heart sound present, No gallops present (Cardio), No murmurs present (Cardio), No rub (Cardio) and Peripheral pulses 2+ throughout RATE: regular rate RHYTHM: regular rhythm HEART SOUNDS: S1 normal heart sound present and S2 normal heart sound present PERIPHERAL PULSES: Peripheral pulses 2+ throughout GI: AUSCULTATION: Yes normoactive bowel sounds RECTAL EXAM: Yes deferred OTHER: Peritoneal drain site catheter, is having clear peritoneal fluid discharge from the sides. Extremity: COMMON NORMALS: no clubbing, cyanosis or edema and no pedal edema Neuro: COMMON NORMALS: patient oriented x3 Data 10/12/22 23:34 10/12/22 23:34 A&P Assessment and plan (1) Hyperammonemia: (2) Chronic hyponatremia: (3) Alcohol dependence: (4) Homicidal ideation: (5) UTI (urinary tract infection): Plan # Suicidal ideation, homicidal ideation -awaiting psych assessment and plan -No active plan -Placed on suicide precautions # Peritoneal drain catheter due to need for recurrent paracentesis -Continues to have leakage around PD site - Position confirmed on Ct abdomen - will place colostomy bag around indertion site to try to contain leakage # UTI, Rocephin # Alcohol dependence, had a drink of alcohol before he came to the hospital, no current signs of withdrawal but at risk of this # Hyperammonemia,continue lactulose to 20 g 3 times daily #Disposition: Patient currently do not feel that he is ready to go home. Attestations Medical Necessity Statement*: Needs to be in hospital for IV antibiotic, for UTI Coding Level of Care Code Acute Code for Chg Fwd Diagnoses Hyperammonemia E72.20 Chronic hyponatremia E87.1 Alcohol dependence F10.20 Homicidal ideation R45.850 UTI (urinary tract infection) N39.0
[2022-10-15] MEDS: acetaminophen 325 mg Tablet 650 MG PO (16:39)
[2022-10-15 16:42] LABS: Glucose Point of Care 132 mg/dL (70-110)
[2022-10-15 20:33] LABS: Glucose Point of Care 112 mg/dL (70-110)
[2022-10-16] VITALS (10 sets, daily range): BP systolic 92–122; BP diastolic 45–80; PULSE 67–90; RESP 15–18; TEMP 36.5–37; O2SAT 93–99
[2022-10-16] MEDS: lactulose oral liq 20 gm/30 mL UDC PO ×2 (00:02→17:32)
[2022-10-16 06:43] LABS: Glucose Point of Care 119 mg/dL (70-110)
[2022-10-16] MEDS: levETIRAcetam 500 mg Tablet 750 MG PO ×2 (10:20→17:33)
[2022-10-16] MEDS: FUROsemide 20 mg Tablet PO (10:21)
[2022-10-16] MEDS: spironolactone 25 mg Tablet 100 MG PO (10:21)
[2022-10-16] MEDS: thiamine 100 mg Tablet PO (10:21)
[2022-10-16] MEDS: citalopram 20 mg Tablet PO (10:21)
[2022-10-16] MEDS: pantoprazole 40 mg SDV IVP (10:22)
[2022-10-16] MEDS: enoxaparin 40 mg/0.4 mL Syringe SUBCUT (10:22)
[2022-10-16] MEDS: cefTRIAXone 1,000 MG in sodium chloride 0.9% (plus) 50 ML 100 MG IV (10:23)
--- NOTE | 2022-10-16 11:21 | PC.SOCIAL ---
IMM update IMM not updated as patient is on 96 hour hold and not anticipated to dc in the next 24 hours.
--- NOTE | 2022-10-16 11:27 | PC.NURSE ---
Patient's spouse has continued to call frequently today, including to the GI Lab, demanding that he have his drain placed today rather than tomorrow. Maite Amaya, Complaint and Weigh And Charge Worker present with me and reviewed documentation to find no PHI available. We spoke with patient and he provided verbal consent to give any information to his spouse. We received an update from patient's primary nurse, Gladis Gomez RN as well as special needs librarian, Dennis Harris that patient likely wouldn't have drain placed today and once cleared by Dr. Mahan, would likely d/c home. I sat down with Maite Amaya and called patient's spouse at 1128. I offered to review the current plan for patient with her after receiving verbal consent to do so. She inquired on why patient was miserable and continuing to have issues and nobody will help him. I reviewed the current plan with her and she expressed concern with the drain in his belly still leaking I explained that the drainage was normal according to our General Surgeon and that after multiple imaging studies, the drain is in the correct place. She continued to state that he shouldn't be leaking and he shouldn't have to be cleaned up all the time because she couldn't care for that at their home. I inquired if patient was receiving home health and she stated no, that they were getting O2 at home but that was it. She has been caring for the tube at home and states that nobody ever showed me what to do with this thing . I reviewed the previous hosptialization notes with her, including education on drain management and offered to provide more education on the management of the drain at home, however she refuses, stating that she has everything he needs at home. She continued throughout the conversation fluctuating back and forth between wanting patient to come home and wanting patient to be seen at another facility. I explained that the hospital physician, Dr Ordoñez, and the psychologist, Dr. Mahan would both be seeing patient today and deciding if patient would be admitted to NPU or d/c'd home. She states she would prefer patient come home. I informed her myself or the physicians would call her with an update after rounding. I called and spoke with Dr. Ordoñez and reviewed this information with him. He states that he consulted with Dr. Zheng and he states that until the drain site is completely healed, he will have small amounts of leaking. He states that after speaking with Dr. Mahan, he will call and speak with patient's spouse to review everything with her.
[2022-10-16 11:46] LABS: Glucose Point of Care 174 mg/dL (70-110)
--- NOTE | 2022-10-16 12:18 | PC.NURSE ---
Dr. Ordoñez attempted to call patient's spouse to provide an update and left a voicemail. She called back and I spoke with Dr. Ordoñez, who stated it was okay to speak with her and provide update. Patient's spouse inquired about d/c today and I informed her I was the nurse she had spoken to a little while ago, to which she seemed confused. I reviewed with her the d/c plan of going home today if Dr. Mahan is okay with that. I also offered to have her come back in and review drain care with us and she states that would be great, but I just can't today. I offered to write down the care instructions for her and she states that would be fine. She denies further questions or concerns and I informed her one of us would be calling after Dr. Negrito ryan. She verbalizes understanding. I called and spoke with Dr. Ordoñez and provided him this update. He verbalizes understanding and states we will work together to call the spouse after Dr. Negrito ryan. I spoke with Gladis Gomez RN and reviewed all information to ensure education upon d/c.
--- NOTE | 2022-10-16 14:03 | PC.NURSE ---
1400 - ABD pads surrounding drain saturated. Clear fluids leaking into commode as pt sitting on commode. Three ABD pads placed over drain and pt wrapped with kerlix. Notified Dr. Ordoñez, states he will consult surgery prior to discharge.
--- NOTE | 2022-10-16 16:17 | W.PM.NPUPNS ---
Subjective NPU Subjective: Was seen in [facility] room. He denied any thoughts of hurting himself or others today. He had corroborated the information stating that he had been prescribed 156 mg Invega intramuscularly. He had reported that he would follow-up with his psychiatrist. He reported that he had previously received his Invega intramuscular medication greater than 1 month ago. He states that he routinely gets his medication by the nurse of his primary care physician. Mental Status Exam MSE Comments: This is an obese white male with a signficant arriaza wearing a hospital gown on with intermittent eye contact and poor grooming lying in his [facility] bed. He was cooperative with exam in mild distress. His speech was decreased rate and volume. Mood described as allright. His affect was subdued. Thought process:linear, logical Thought content: Patient denied suicidal or homicidal ideation. There were no delusions reported or noted, he denied any auditory or visual hallucinations currently. Attention and concentration appeared intact and memory was mostly reliable but none were formally tested. The alert and oriented x3. Insight, judgment and impulse control are limited. Vitals/I&O/Wt Last Vital Signs Temp 98.5 F 10/16/22 12:00 Pulse 81 10/16/22 12:00 Resp 16 10/16/22 12:00 BP 92/52 10/16/22 12:00 Pulse Ox 97 10/16/22 12:00 O2 Del Method Nasal Cannula 10/16/22 12:00 O2 Flow Rate 2 10/16/22 08:00 10/16/22 10/16/22 10/16/22 06:59 14:59 22:59 Intake Total 1010 / 1010 Balance 1010 / 1010 Data NPU 10/12/22 23:34 10/12/22 23:34 A&P Assessment and plan (1) Schizoaffective disorder: (2) Alcohol dependence: Plan Invega 156 mg intramuscularly prescribed and recommended to be given today prior to discharge. He is no longer suicidal or homicidal and the involuntary hospitalization was rescinded. No inpatient treatment is medically necessary. Involuntary Hold Information 96 Hour Hold: 96 Hour Involuntary Admission: No 96 Hour Hold Ending Date: 06/12/22 96 Hour Hold Ending Time: 14:00 Attestations NPU Medical Necessity Statement*: NA Coding Level of Care Code Acute Code for Chg Fwd Diagnoses Schizoaffective disorder F25.9 Alcohol dependence F10.20
[2022-10-16 16:47] LABS: Glucose Point of Care 110 mg/dL (70-110)
--- NOTE | 2022-10-16 17:27 | PM.DCS ---
Discharge Providers Date of Admission: 10/13/22 09:02 Date of Discharge: October 16, 2022 Attending Provider at Admission: Thi Snyder MD Attending Provider at Discharge: Maikol Ordoñez MD Primary Care Provider: YENI Perez Diagnoses at Discharge Discharge Diagnosis (1) Schizoaffective disorder: Status: Acute (2) Alcohol dependence: Status: Acute Reason for Visit Reason for Visit: ABD PAIN Hospital Course Hospital Course HPI: Owen Pierce MD 47 year old male with a past medical history of schizophrenia, major depressive disorder, noninsulin-dependent type 2 diabetes mellitus, COPD, alcohol dependence, alcoholic liver cirrhosis, recently hospitalized, with liver failure, had peritoneal drain placed due to recurrent ascites, discharged home with hospice services, who presents back to [facility] due to suicidal ideation, hydroma Keven ideation, and active drainage around his peritoneal drain site.? Patient tells that when he got home, he had continuous drainage around the peritoneal drain site, it saturated all his close, and continued to leak, here in the emergency room he tells me that it leaked all over the floor, although it was drained at home, he reports fevers, he reports chills, no nausea, no vomiting, he reports active suicidal ideation, that he wants to kill himself, and that he wants to kill his ex-, he is not able to provide a plan, but does continue to report active suicidal and homicidal ideation. Hospital course: Was admitted for the management of active suicidal and homicidal ideation, psychiatry was on board, he was placed on 96-hour hold by ER, psychiatry saw the patient in house, and he was cleared for discharged, as he was not having any active suicidal, homicidal ideation at the time of discharge. With regards to his Peritoneal catheter placed for draining recurrent ascites in the setting of decompensated liver cirrhosis secondary to end-stage liver disease, it was evaluated by surgery, and currently peritoneal catheter is working fine, CT abdomen and pelvis was also done during the hospital stay to confirm the placement: It showed: tip lies within the peritoneal cavity right lower quadrant.Patient was managed conservatively for the leak with ABD pads. During the hospital stay patient was also managed for UTI: He was kept on ceftriaxone:No antibiotic was continued on discharge.Patient was discharged in stable condition to home. Physical Exam Const: COMMON NORMALS: patient oriented x3 HENMT: COMMON NORMALS: normocephalic and atraumatic HEAD & SCALP: normocephalic and atraumatic Resp: COMMON NORMALS: clear to auscultation bilaterally EFFORT & INSPECTION: Yes symmetric chest movement AUSCULTATION: clear to auscultation bilaterally Cardio: COMMON NORMALS: regular rate, regular rhythm, S1 normal heart sound present, S2 normal heart sound present, No gallops present (Cardio), No murmurs present (Cardio), No rub (Cardio) and Peripheral pulses 2+ throughout RATE: regular rate RHYTHM: regular rhythm HEART SOUNDS: S1 normal heart sound present and S2 normal heart sound present PERIPHERAL PULSES: Peripheral pulses 2+ throughout GI: AUSCULTATION: Yes normoactive bowel sounds RECTAL EXAM: Yes deferred OTHER: Peritoneal drain site catheter, is having clear peritoneal fluid discharge from the sides. Extremity: COMMON NORMALS: no clubbing, cyanosis or edema and no pedal edema Neuro: COMMON NORMALS: patient oriented x3 Discharge Data Studies Completed and Pending Completed Studies During Hospitalization Category Date Time Status CT abdomen pelvis con [id number] Routine Cat Scan 10/13/22 10:28 Completed US abdomen limited [id number] Stat Ultrasound 10/13/22 05:30 Completed Pending at discharge Category Date Time Status Blood Culture Routine Lab 10/13/22 10:19 Results Radiology Impressions Abdomen Ultrasound 10/13/22 05:30 IMPRESSION: The drain is not identified on the provided images. Abdomen/Pelvis CT 10/13/22 10:28 IMPRESSION: 1. Interval placement of percutaneous drainage catheter whose tip lies within the peritoneal cavity right lower quadrant. 2. Cirrhosis with evidence of portal hypertension and small amount of ascites. 3. Splenomegaly unchanged possibly due to portal hypertension. 4. Mild generalized anasarca within the soft tissues presumably secondary to volume overload or hypoproteinemia. 5. Additional materials engineer small amount of intraluminal bladder air presumed secondary to previous catheterization. Please confirmed with history. 6. Slowly enlarging nodular soft tissue densities within the buttocks of uncertain etiology. 7. Additional chronic findings as above. Laboratory Results WBC 6.5 10^3/uL (4.0-10.0) 10/12/22 23:34 RBC 3.87 10^6/uL (4.1-5.3) L 10/12/22 23:34 Hgb 13.0 g/dL (11.7-16.6) 10/12/22: Hct 38.9 % (42.0-52.0) L 10/12/22: MCV 100.5 fl (80-94) H 10/12/22: MCH 33.6 pg (28.0-34.0) 10/12/22: MCHC 33.4 g/dL (30.0-36.0) 10/12/22: RDW 13.9 % (12.1-15.1) 10/12/22: Plt Count 147 10^3/cmm (130-400) 10/12/22: MPV 10.3 fL (7.4-10.4) 10/12/22: Neut % (Auto) 76.3 % 10/12/22: Lymph % (Auto) 10.5 % 10/12/22: [place] % (Auto) 10.8 % 10/12/22: Eos % (Auto) 1.4 % 10/12/22: Baso % (Auto) 0.5 % 10/12/22: Neut # (Auto) 4.95 10^3/uL (1.8-7.7) 10/12/22: Lymph # (Auto) 0.7 10^3/uL (0.8-4.8) L 10/12/22: [place] # (Auto) 0.7 10^3/uL (0.2-0.9) 10/12/22: Eos # (Auto) 0.1 10^3/uL (0.0-0.8) 10/12/22: Baso # (Auto) 0.0 10^3/uL (0.0-0.1) 10/12/22: Nucleated RBC % (auto) 0 % 10/12/22: Nucleated RBCs # 0.0 /100WBC 10/12/22: PT 17.10 SECONDS (12.1-14.9) H 10/12/22 23: INR 1.34 (0.8-1.2) H 10/12/22: Sodium 131 mmol/L (136-145) L 05/05/23 23:34 Potassium 3.7 mmol/L (3.5-5.1) 10/12/22 23:34 Chloride 93 mmol/L (98-107) L 10/12/22 23:34 Carbon Dioxide 34 mmol/L (22-29) H 10/12/22 23:34 Anion Gap 7.7 (5-19) 10/12/22 23:34 BUN 7 mg/dL (6-20) 10/12/22 23:34 Creatinine 0.4 mg/dL (0.7-1.2) L 10/12/22 23:34 GFR Calculation 228.6 mL/min (90-130) H 10/12/22 23:34 Glucose 143 mg/dL (65-115) H 10/12/22 23:34 POC Glucose 110 mg/dL (70-110) 10/16/22 16:36 Estimat Average Glucose 97 10/13/22 10:11 Hemoglobin A1c 5.0 % (4.0-6.0) 10/13/22 10:11 Calculated Osmolality 272 mOsm/kg (285-295) L 10/12/22 23:34 Lactic Acid 0.9 mmol/L (0.5-2.2) 10/13/22 05:35 Calcium 8.0 mg/dL (8.5-10.5) L 10/12/22 23:34 Total Bilirubin 1.8 mg/dL (0.15-1.2) H 10/12/22 23:34 AST 108 U/L (0-40) H 10/12/22 23:34 ALT 38 U/L (0-41) 10/12/22 23:34 Alkaline Phosphatase 99 U/L (40-130) 10/12/22 23:34 Ammonia 86 umol/L (16-60) H 10/12/22 23:34 C-Reactive Protein 16.3 mg/L (0.0-4.9) H 10/12/22 23:34 Total Protein 6.2 g/dL (6.6-8.7) L 10/12/22 23:34 Albumin 2.2 g/dL (3.5-5.2) L 10/12/22 23:34 Globulin 4.0 g/dL (1.3-4.6) 10/12/22 23:34 Procalcitonin 0.08 ng/mL (0-0.5) 10/13/22 05:35 TSH 3.11 uIU/mL (0.27-4.20) 10/13/22 10:11 Urine Color [place] (Yellow) 10/13/22 00:27 Urine Appearance Sl hazy (CLEAR) A 10/13/22 00:27 Urine pH 8 (5-7) H 10/13/22 00:27 Ur Specific [place] 1.005 (1.005-1.030) 10/13/22 00:27 Urine Protein Trace (Negative) 10/13/22 00:27 Urine Glucose (UA) Norm (Normal) 10/13/22 00: Urine Ketones 1+ (Negative) H 10/13/22 00: Urine Blood 2+ (Negative) H 10/13/22 00: Urine Nitrate Negative (Negative) 10/13/22 00: Urine Bilirubin 1+ (Negative) H 10/13/22 00:27 Prot Sulfosalicylic Acd Negative (Negative) 10/13/22 00: Urine Urobilinogen 4+ mg/dL (Negative) H 10/13/22 00:27 Ur Leukocyte Esterase 1+ (Negative) H 10/13/22 00:27 Urine RBC 25-40 /hpf (0-2) H 10/13/22 00:27 Urine WBC 0-4 /hpf (0-5) H 10/13/22 00:27 Ur Squamous Epith Cells 0-4 /hpf (0-5) H 10/13/22 00:27 Amorphous Sediment Not Reportable 10/13/22 00: Urine Bacteria Trace /hpf (NONE) 10/13/22 00:27 Salicylates 0.6 mg/dL (3-10) L 10/12/22 23:34 Urine Opiates Screen Negative ng/mL (Negative) 10/13/22 00:27 Acetaminophen < 5.0 ug/mL (10-30) L 10/12/22 23:34 Ur Barbiturates Screen Negative ng/mL (Negative) 10/13/22 00:27 Ur Phencyclidine Scrn Negative ng/mL (Negative) 10/13/22 00:27 Ur Amphetamines Screen Negative ng/mL (Negative) 10/13/22 00:27 U Benzodiazepines Scrn Positive ng/mL (Negative) H 10/13/22 00:27 Urine Cocaine Screen Negative ng/mL (Negative) 10/13/22 00:27 U Marijuana (THC) Screen Negative ng/mL (Negative) 10/13/22 00:27 Ethyl Alcohol < 10 mg/dL (0-10) 10/12/22 23:34 Vitals Last Vital Signs Temp 98.6 F 10/16/22 16:00 Pulse 75 10/16/22 16:00 Resp 15 10/16/22 16:00 BP 96/45 10/16/22 16:00 Pulse Ox 95 10/16/22 16:00 O2 Del Method Nasal Cannula 10/16/22 16:00 O2 Flow Rate 2 10/16/22 08:00 Discharge Plan Discharge Patient Disposition: Home Condition: Stable Prescriptions: Continued Invega Sustenna 234 mg/1.5 mL syringe 234 mg IM Q30D Qty: 1.5 0RF Rx Instructions: initial starting dose citalopram [Celexa] 20 mg tablet 20 mg PO DAILY Qty: 30 2RF paliperidone [Invega] 6 mg tablet extended release 24 hr 6 mg PO QAM Qty: 14 2RF Rx Instructions: daily as needed 2 weeks before injection is next due levetiracetam 750 mg tablet 750 mg PO BID 30 Days Qty: 60 1RF furosemide [Lasix] 20 mg tablet 20 mg PO DAILY Qty: 90 3RF thiamine HCl (vitamin B1) 100 mg tablet 100 mg PO DAILY Qty: 90 0RF spironolactone 100 mg tablet 100 mg PO DAILY Qty: 60 2RF lactulose 20 gram/30 mL solution 20 g PO DAILY Qty: 2880 5RF trazodone 50 mg tablet 50 mg PO BEDTIME gabapentin 400 mg capsule 400 mg PO TID metformin 500 mg tablet extended release 24 hr 500 mg PO BID Discharge Orders: Discharge Order (Routine); Ordered 10/16/22 Ordered By: Maikol Ordoñez Referrals: Jewell Hugo FNP-C [Primary Care Provider] - 1 week Discharge Diet: Low Salt Patient Instructions: Opioid Safety Discharge Attestations Time Spent in Discharge Care*: less than 30 min Status at Discharge: Cognitive status at discharge: cognitively intact, Behavioral status at discharge: cooperative, Quality Metrics Clinical Quality Measures [ No reported AMI, CVA or VTE this stay] Coding Level of Care Code Acute Code for Chg Fwd Diagnoses Schizoaffective disorder F25.9 Alcohol dependence F10.20
--- NOTE | 2022-10-16 18:27 | PC.NURSE ---
1800 - WAITING ON SHIPMENT TO PHARMACY FOR INVEGA SUSTGERALDINE. MUST HAVE INJECTION BEFORE DISCHARGE
[2022-10-16 20:40] LABS: Glucose Point of Care 129 mg/dL (70-110)
[2022-10-16] MEDS: morphine 4 mg/mL SDV 1 mL 1 MG IVP (21:22)
[2022-10-17] MEDS: lactulose oral liq 20 gm/30 mL UDC PO (01:00)
[2022-10-17 04:00] VITALS: BP 96/52; PULSE 77; RESP 18; TEMP 36.8; O2SAT 97
[2022-10-17 06:00] VITALS: PULSE 72
[2022-10-17 06:12] LABS: Glucose Point of Care 110 mg/dL (70-110)
[2022-10-17 07:53] VITALS: PULSE 72; RESP 18; O2SAT 95
[2022-10-17 08:00] VITALS: BP 103/60; PULSE 71; RESP 15; TEMP 36.6; O2SAT 96
[2022-10-17] MEDS: levETIRAcetam 500 mg Tablet 750 MG PO (09:34)
[2022-10-17] MEDS: thiamine 100 mg Tablet PO (09:34)
[2022-10-17] MEDS: cefTRIAXone 1,000 MG in sodium chloride 0.9% (plus) 50 ML 100 MG IV (09:34)
[2022-10-17] MEDS: pantoprazole 40 mg SDV IVP (09:34)
[2022-10-17] MEDS: FUROsemide 20 mg Tablet PO (09:34)
[2022-10-17] MEDS: spironolactone 25 mg Tablet 100 MG PO (09:34)
[2022-10-17] MEDS: citalopram 20 mg Tablet PO (09:34)
--- NOTE | 2022-10-17 12:12 | PC.NURSE ---
patient was being discharged. disconnected and removed iv, patient tolerated well, wrapped forearm
--- NOTE | 2022-10-17 12:22 | PC.NURSE ---
patient verbalized understanding of discharge instructions, home medications, and follow up appointments. peritoneal drain emptied in sterile fashion prior to discharge. 50 cc pale yellow fluid drained.
[2022-10-17 12:27] VITALS: BP 103/60; PULSE 71; RESP 15; TEMP 36.6; O2SAT 96
[2022-10-17 20:49] LABS: Glucose Point of Care 167 mg/dL (70-110)
== END 2022-10-17 12:29 | disposition home or self-care (01) | DRG 885 ==
LOC: ER 10-13 05:51 → ER IP 10-13 08:07 → MEDSURG 10-13 09:22
PROVIDERS: Family Medicine; Admitting Provider Student in an Organized Health Care Education/Training Program; Emergency Provider Emergency Medicine; PCP Nurse Practitioner Family; Visit Provider Internal Medicine
DX: F25.1 Schizoaffective disorder, depressive type (principal); N39.0 Urinary tract infection, site not specified; R45.851 Suicidal ideations; E87.1 Hypo-osmolality and hyponatremia; T85.638A Leakage of other specified internal prosthetic devices, implants and grafts, initial encounter; F10.20 Alcohol dependence, uncomplicated; K70.31 Alcoholic cirrhosis of liver with ascites; K72.10 Chronic hepatic failure without coma; E11.9 Type 2 diabetes mellitus without complications; J44.9 Chronic obstructive pulmonary disease, unspecified; R45.850 Homicidal ideations; Z79.84 Long term (current) use of oral hypoglycemic drugs; Z79.891 Long term (current) use of opiate analgesic; I10 Essential (primary) hypertension; I25.10 Atherosclerotic heart disease of native coronary artery without angina pectoris; Z86.73 Personal history of transient ischemic attack (TIA), and cerebral infarction without residual deficits; E78.2 Mixed hyperlipidemia; F17.210 Nicotine dependence, cigarettes, uncomplicated; E66.9 Obesity, unspecified; Y81.8 Miscellaneous general- and plastic-surgery devices associated with adverse incidents, not elsewhere classified
CPT/HCPCS: 36415; 36416; 74176; 76705; 80053; 80306; 80307; 81001; 82140; 82962; 83036; 83605; 84145; 84443; 85025; 85610; 86140; 87040; 93005; 94640; 94664; 96372; 99285; C9113; J0696; J1650; J2270; J2405

== ENCOUNTER 2022-10-26 23:28 | Inpatient (IN) | payer MEDICARE, MEDICAID, SELFPAY ==
[2022-10-26 23:33] VITALS: BP 140/82; PULSE 98; RESP 24; TEMP 36.8; O2SAT 96; BMI 28.8
[2022-10-27] VITALS (130 sets, daily range): BP systolic 113–140; BP diastolic 66–82; PULSE 0–122; RESP 8–33; TEMP 36.7–37.1; O2SAT 85–98; BMI 26.3
--- NOTE | 2022-10-27 00:41 | CTR_ITS ---
PROCEDURE INFORMATION: Exam: CT Lumbar Spine Without Contrast Exam date and time: 10/27/2022 1:30 AM Age: 47 years old Clinical indication: Weakness; Additional info: R leg weakness TECHNIQUE: Imaging protocol: Computed tomography of the lumbar spine without contrast. Total images: 243 Radiation optimization: All CT scans at this facility use at least one of these dose optimization techniques: automated exposure control; mA and/or kV adjustment per patient size (includes targeted exams where dose is matched to clinical indication); or iterative reconstruction. REPORTING DATA: Count of CT and Cardiac NM exams in prior 12 months: This patient has received 12 known CTs and 0 known cardiac nuclear medicine studies in the 12 months prior to the current study. COMPARISON: CT abdomen pelvis wo con [id number] 10/13/2022 2:34 PM RADIATION DOSE METRICS: Total DLP (mGy-cm): 895.86 FINDINGS: Bones/joints: Vertebral body heights are maintained. No evidence of spondylolysis nor spondylolisthesis. Large posterior disc bulge at L4-L5 with degenerative posterior osseous ridging and in combination with ligament hypertrophy is causing severe central canal stenosis. Intraperitoneal space: There is a small to moderate amount of free intra-abdominal fluid. Soft tissues: Large right paracentral disc herniation at L5-S1 with mass effect on exiting S1 nerve root. CT/CT lumbar spine wo con* [id number] IMPRESSION: 1. Large right paracentral disc herniation at L5-S1 with mass effect on exiting S1 nerve root. 2. Large posterior disc bulge at L4-L5 with degenerative posterior osseous ridging and in combination with ligament hypertrophy is causing severe central canal stenosis. 3. Degenerative changes as described above but no acute pathology detected.
--- NOTE | 2022-10-27 00:41 | CTR_ITS ---
PROCEDURE INFORMATION: Exam: CT Head Without Contrast Exam date and time: 10/27/2022 1:25 AM Age: 47 years old Clinical indication: Injury or trauma; Fall; Blunt trauma (contusions or hematomas); Additional info: Fall head injury TECHNIQUE: Imaging protocol: Computed tomography of the head without contrast. Radiation optimization: All CT scans at this facility use at least one of these dose optimization techniques: automated exposure control; mA and/or kV adjustment per patient size (includes targeted exams where dose is matched to clinical indication); or iterative reconstruction. REPORTING DATA: Count of CT and Cardiac NM exams in prior 12 months: This patient has received 12 known CTs and 0 known cardiac nuclear medicine studies in the 12 months prior to the current study. COMPARISON: CT head wo con* [id number] 08/22/2022 10:34 AM RADIATION DOSE METRICS: Total DLP (mGy-cm): 1199.28 FINDINGS: Brain: Mild cerebral atrophy and ischemic leukoencephalopathy. Mild calcified intracranial atherosclerotic vessel disease. Cerebral ventricles: No ventriculomegaly. Paranasal sinuses: Visualized sinuses are unremarkable. No fluid levels. Mastoid air cells: Visualized mastoid air cells are well aerated. Bones/joints: Unremarkable. No acute fracture. Soft tissues: Unremarkable. CT/CT head wo con* [id number] IMPRESSION: No acute intracranial findings.
--- NOTE | 2022-10-27 00:56 | ECG_ITS ---
[facility] Test Date: 2022-10-27 Pat Name: Reinaldo Flores Department: Room: Gender: Male Ambulance Assistant: : 1975 Requested By: Solitario Paredes Order Number: [id number] Sharon MD: Skip Abdul M.D. Measurements Intervals [place] Rate: 95 P: 43 LA: 142 QRS: 2 QRSD: 103 T: 21 QT: 328 QTc: 414 Interpretive Statements SINUS RHYTHM SEPTAL MYOCARDIAL INFARCTION , OF INDETERMINATE AGE [40+ ms Q WAVE IN V1/V2] Compared to ECG 10/13/2022 00:08:30 Myocardial infarct finding now present Electronically Signed On 10-27-2022 14:01:29 CDT by Skip Abdul M.D. [id number]
[2022-10-27 01:11] LABS: Ammonia 91 umol/L (16-60); Lactic Sepsis W/Reflex 1.4 mmol/L (0.5-2.2)
[2022-10-27 01:12] LABS: Alanine Aminotransferase 41 U/L (0-41); Albumin Level 2.4 g/dL (3.5-5.2); Alcohol Level 32 mg/dL (0-10); Alkaline Phosphatase 90 U/L (40-130); Anion Gap 16.5 (5-19); Aspartate Amino Transferase 72 U/L (0-40); Blood Urea Nitrogen 17 mg/dL (6-20); C Reactive Protein 5.7 mg/L (0.0-4.9); Calcium 8.2 mg/dL (8.5-10.5); Carbon Dioxide 18 mmol/L (22-29); Chloride 78 mmol/L (98-107); Globulin 3.6 g/dL (1.3-4.6); Glomerular Filtration Rate 318.7 mL/min (90-130); Glucose 96 mg/dL (65-115); Osmolality Calculated 225 mOsm/kg (285-295); Potassium 5.5 mmol/L (3.5-5.1); Total Bilirubin 1.7 mg/dL (0.15-1.2)
[2022-10-27 01:17] LABS: Basophils % 0.3 %; Eosinophils # 0.2 10^3/uL (0.0-0.8); Eosinophils % 1.4 %; Hematocrit 38.4 % (42.0-52.0); Hemoglobin 13.5 g/dL (11.7-16.6); INR 1.24 (0.8-1.2); Lymphocytes # 1.2 10^3/uL (0.8-4.8); Lymphocytes % 9.9 %; Mean Corpuscular HGB Conc 35.2 g/dL (30.0-36.0); Mean Corpuscular Hemoglobin 32.7 pg (28.0-34.0); Mean Platelet Volume 10.1 fL (7.4-10.4); Monocytes # 1.5 10^3/uL (0.2-0.9); Monocytes % 12.4 %; Neutrophils # 8.84 10^3/uL (1.8-7.7); Neutrophils % 74.9 %; Nucleated Red Blood Cells % 0 %; Platelet Count 196 10^3/cmm (130-400); Red Blood Count 4.13 10^6/uL (4.1-5.3); White Blood Count 11.8 10^3/uL (4.0-10.0)
[2022-10-27 01:29] LABS: Sodium 107 mmol/L (136-145)
--- NOTE | 2022-10-27 02:43 | ED_ITS ---
HPI - Abdominal Pain General: Chief Complaint: Abdominal Pain Stated Complaint: LEG NUMBNESS Time Seen by Provider: 10/26/22 23:36 History of Present Illness: 47-year-old male who has been seen multiple times in the ER recently. He presents with several complaints including numbness and weakness to his right lower extremity, worsened chronic belly pain, and continued leakage of fluid from his abdominal drain site. He admits to having a couple of drinks of vodka and tea this evening. He reports he is fallen several times today because of the right lower extremity weakness and numbness MD elicited complaint: abdominal pain Pertinent past history: other Onset (ago): day(s) Pain Consistency: constant Location: Diffuse Severity: moderate Quality: stabbing and burning Radiation: none Migration to: no migration Relieving factors: nothing Associated Symptoms: Reports nausea and poor appetite; Denies coffee ground emesis, fever(s), hematochezia and melena Review of Systems Const: Denies: fever(s) Eyes: Denies: change in vision ENMT: Denies: throat pain Card: Denies: chest pain Resp: Reports: dyspnea (Chronic); Denies: productive cough or non-productive cough GI: Reports: nausea; Denies: coffee ground emesis, hematochezia or melena Psych: Reports: depression; Denies: suicidal ideation PFSH ED PFSH: Medical History Abdominal ascites Acne rosacea ALC (alcoholic liver cirrhosis) Alcohol dependence Bipolar disorder Cirrhosis of liver Controlled diabetes mellitus with hyperglycemia COPD (chronic obstructive pulmonary disease) DM neuropathy, painful Essential (primary) hypertension History of alcohol abuse daily use of hard liquor History of coronary artery disease History of CVA (cerebrovascular accident) 2010 Right side weakness due to a bleed History of memory loss History of schizophrenia Hyperammonemia Hypoxia Major depression, recurrent, chronic Mixed hyperlipidemia Nicotine dependence, cigarettes, uncomplicated Nicotine dependence, unspecified, uncomplicated Psoriasis Psychiatric care Schizoaffective disorder Schizophrenia Seizure disorder Suicidal ideation Traumatic brain injury UTI (urinary tract infection) Surgical History History of cardiac catheterization ~2014 done in [place], reports they discussed possible stent but he declined History of colonoscopy with polypectomy 2016 History of esophagogastroduodenoscopy (EGD) History of eye surgery Family History Other Dementia Diabetes Hypertension Lung disease Psychiatric illness Stroke Denies family history of Chronic kidney disease (CKD) Anesthesia complication Bleeding disorder Cancer Social History Smoking and tobacco status: current every day smoker cigarettes Packs smoked per day: 2.5 Second hand smoke exposure: Yes Alcohol intake: current Alcohol intake frequency: 3 or more drinks per day Alcohol type: hard liquor Substance/Drug Use: never Adopted: No Caregiver/support person: Yes Lives independently: No Household members: friend(s) and caregiver Housing: Manufactured/Mobile home Marital status: Number of children: 8 service: No Current occupational status: disabled Pets and animals: Yes Do you think of yourself as: Straight/Heterosexual Current gender identity: Male Physical Exam Const: GENERAL APPEARANCE: cooperative and frail appearing HENMT: COMMON NORMALS: normocephalic, atraumatic and Normal external nose present HEAD & SCALP: normocephalic and atraumatic NOSE: Normal external nose present MOUTH: Normal oral and palatal mucosa present Eye: COMMON NORMALS: Equal, round and reactive pupils present and EOMs intact bilaterally PUPIL: Yes Equal, round and reactive pupils present Neck/C-Spine: COMMON NORMALS: full ROM Chest: CHEST: Yes Symmetrical chest wall rise Resp: COMMON NORMALS: normal respiratory effort and No use of accessory muscles AUSCULTATION: rales Cardio: COMMON NORMALS: regular rate and regular rhythm RATE: regular rate RHYTHM: regular rhythm GI: INSPECTION: Yes abdominal distension PALPATION: Yes Firmness to palpation present (GI), Yes Tenderness to palpation present (GI) and No Guarding due to palpation present (GI) OTHER: Abdominal ascites drain present in the lower abdomen. Incision free of cellulitis. Scant drainage currently. Extremity: GENERAL: Yes edema Neuro: BING COMA SCALE: document GCS findings Callands coma scale eye opening: Spontaneous [place] coma scale verbal response: Orientated Bing coma scale motor response: Obey commands Callands coma scale total score: 15 Course Vital Signs: Vital signs: Vital Signs Temperature 98.2 F 10/26/22 23:33 Pulse Rate 94 10/27/22 04:30 Respiratory Rate 20 H 10/27/22 04:30 Blood Pressure 114/76 10/27/22 04:30 Pulse Oximetry 94 10/27/22 04:30 Oxygen Delivery Me thod Nasal Cannula 10/27/22 04:30 Oxygen Flow Rate 3 10/27/22 04:30 MDM - Abdominal Pain Medical Decision Making Mr. Flores has significant weakness to the right lower extremity. He is unable to hold it against gravity while lying supine. He is also unable to do a great toe raise or plantarflexion of the foot. He does have some movement capability. He claims sensation is significantly decreased on that side as well. Straight leg raise test is negative no saddle anesthesia. Mr. Flores also has a sodium of 107. He has had low sodium before, but this is quite severe. His bicarbonate is 18, potassium mildly elevated. He will be given a bolus of fluid, normal saline, and also started on hypertonic saline. CTs of the lumbar spine and head are pending, completed due to right lower extremity weakness, numbness, and frequent falls with apparent head injury. Sodium now at 110 after couple of hours administration of hypertonic saline. Appropriate sodium rise rate. He will go to the ICU given severe hyponatremia. Lab Data 10/27/22 00:47 10/27/22 04:03 Labs/Radiology: Radiology Impressions Head CT 10/27/22 00:41 IMPRESSION: No acute intracranial findings. Lumbar Spine CT 10/27/22 00:41 IMPRESSION: 1. Large right paracentral disc herniation at L5-S1 with mass effect on exiting S1 nerve root. 2. Large posterior disc bulge at L4-L5 with degenerative posterior osseous ridging and in combination with ligament hypertrophy is causing severe central canal stenosis. 3. Degenerative changes as described above but no acute pathology detected. Laboratory Results WBC 11.8 10^3/uL (4.0-10.0) H 10/27/22 00:47 RBC 4.13 10^6/uL (4.1-5.3) 10/27/22 00:47 Hgb 13.5 g/dL (11.7-16.6) 10/27/22 00:47 Hct 38.4 % (42.0-52.0) L 10/27/22 00:47 MCV 93.0 fl (80-94) 10/27/22 00:47 MCH 32.7 pg (28.0-34.0) 10/27/22 00:47 MCHC 35.2 g/dL (30.0-36.0) 10/27/22 00:47 RDW 13.0 % (12.1-15.1) 10/27/22 00:47 Plt Count 196 10^3/cmm (130-400) 10/27/22 00:47 MPV 10.1 fL (7.4-10.4) 10/27/22 00:47 Neut % (Auto) 74.9 % 10/27/22 00:47 Lymph % (Auto) 9.9 % 10/27/22 00:47 [place] % (Auto) 12.4 % 10/27/22 00:47 Eos % (Auto) 1.4 % 10/27/22 00:47 Baso % (Auto) 0.3 % 10/27/22 00:47 Neut # (Auto) 8.84 10^3/uL (1.8-7.7) H 10/27/22 00:47 Lymph # (Auto) 1.2 10^3/uL (0.8-4.8) 10/27/22 00:47 [place] # (Auto) 1.5 10^3/uL (0.2-0.9) H 10/27/22 00:47 Eos # (Auto) 0.2 10^3/uL (0.0-0.8) 10/27/22 00:47 Baso # (Auto) 0.0 10^3/uL (0.0-0.1) 10/27/22 00:47 Nucleated RBC % (auto) 0 % 10/27/22 00:47 Nucleated RBCs # 0.0 /100WBC 10/27/22 00:47 PT 16.00 SECONDS (12.1-14.9) H 10/27/22 00:47 INR 1.24 (0.8-1.2) H 10/27/22 00:47 Sodium 110 mmol/L (136-145) L* 10/27/22 04:03 Potassium 5.3 mmol/L (3.5-5.1) H 10/27/22 04:03 Chloride 82 mmol/L (98-107) L 10/27/22 04:03 Carbon Dioxide 19 mmol/L (22-29) L 10/27/22 04:03 Anion Gap 14.3 (5-19) 10/27/22 04:03 BUN 16 mg/dL (6-20) 10/27/22 04:03 Creatinine 0.3 mg/dL (0.7-1.2) L 10/27/22 04:03 GFR Calculation 318.7 mL/min (90-130) H 10/27/22 04:03 Glucose 84 mg/dL (65-115) 10/27/22 04:03 Calculated Osmolality 230 mOsm/kg (285-295) L 10/27/22 04:03 Lactic Acid 1.4 mmol/L (0.5-2.2) 10/27/22 00:47 Calcium 7.9 mg/dL (8.5-10.5) L 10/27/22 04:03 Total Bilirubin 1.7 mg/dL (0.15-1.2) H 10/27/22 00:47 AST 72 U/L (0-40) H 10/27/22 00:47 ALT 41 U/L (0-41) 10/27/22 00:47 Alkaline Phosphatase 90 U/L (40-130) 10/27/22 00:47 Ammonia 91 umol/L (16-60) H 10/27/22 00:47 C-Reactive Protein 5.7 mg/L (0.0-4.9) H 10/27/22 00:47 Total Protein 6.0 g/dL (6.6-8.7) L 10/27/22 00:47 Albumin 2.4 g/dL (3.5-5.2) L 10/27/22 00:47 Globulin 3.6 g/dL (1.3-4.6) 10/27/22 00:47 Ethyl Alcohol 32 mg/dL (0-10) H 10/27/22 00:47 Discharge Plan Discharge Patient Disposition: Admitted As Inpatient Admit Provider: Thi Snyder Clinical Impression: Acute hyponatremia Condition: Fair Coding Level of Care Code ED [place] for Carlos Armstrong
[2022-10-27] MEDS: sodium chloride 3% 500 ML 60 ML IV (02:57)
[2022-10-27] MEDS: sodium chloride 0.9% 500 ML 999 ML IV (03:06)
[2022-10-27 04:25] LABS: Anion Gap 14.3 (5-19); Blood Urea Nitrogen 16 mg/dL (6-20); Calcium 7.9 mg/dL (8.5-10.5); Carbon Dioxide 19 mmol/L (22-29); Chloride 82 mmol/L (98-107); Glomerular Filtration Rate 318.7 mL/min (90-130); Glucose 84 mg/dL (65-115); Osmolality Calculated 230 mOsm/kg (285-295); Potassium 5.3 mmol/L (3.5-5.1)
[2022-10-27 04:36] LABS: Sodium 110 mmol/L (136-145)
--- NOTE | 2022-10-27 06:54 | P.HP_ITS ---
Providers/Chief Complaint Admitting Physician: Thi Snyder MD Primary Care Provider: NAIMA Perez-Daryl Chief Complaint: LEG NUMBNESS History of Present Illness Reinaldo Flores is a 47 year old male with a past medical history of schizophrenia, major depressive disorder, noninsulin-dependent type 2 diabetes mellitus, COPD, alcohol dependence, alcoholic liver cirrhosis,peritoneal drain placed due to recurrent ascites, which is still in place. Recent admission here 10/13 to 10/16 for SI, excessive leaking around the drain site. He was discharged on 10/16 in stable condition. He returns today with c/o increasing generalized weakness, recurrent falls, right lower extremity numbness and weakness. He currently describes his right lower extremity as weight . He is able to perform some activities with gravity, however unable to lift the right lower extremity of the bed. He is noted to have several lab abnormalities today. Sodium is with severe hyponatremia at 107. He is started on hypertonic saline which is currently running at 60 cc an hour at the time of my assessment. Sodium has corrected from 107-110 with the hypertonic saline. His ammonia is elevated at 91. Uncertain if he has been taking all his medications at home. He has been drinking vodka and tea all day. Currently his alcohol level is a 32.Drainage from periotneal cathetr has improved with time. Review of Systems General: Reports: 10 or more systems reviewed and unremarkable except in HPI and below Const: Denies: fever(s), chills or body aches Eyes: Denies: change in vision, blurry vision or photophobia ENMT: Reports: hoarseness; Denies: throat pain, enlarged tonsils, odynophagia or nasal congestion Card: Denies: chest pain, palpitations, irregular heart rhythm, edema, swelling of feet/ankles, lightheadedness, pre-syncope, dyspnea on exertion or orthopnea Resp: Denies: dyspnea, productive cough, non-productive cough, wheezing, stridor, pain on inspiration, change in phlegm color, hemoptysis or chest congestion GI: Denies: abdominal pain, nausea, vomiting, hematemesis, coffee ground emesis, dysphagia, heartburn, diarrhea, constipation, GI cramping, change in stool character, hematochezia or melena : Denies: flank pain, dysuria, urinary frequency, urinary urgency, urinary hesitancy or hematuria Musc: Denies: neck pain, back pain, extremity pain, joint swelling, joint warmth or deformity Neuro: Denies: headache(s), numbness in extremities, weakness in extremities, sensory changes, difficulty walking, frequent falls, dizziness, vertigo, behavioral changes, Slurred speech present or seizure-like activity Psych: Denies: anxiety, depression, suicidal ideation or homicidal ideation Endo: Denies: polyuria, polydipsia, tired all the time, cold intolerance or hot flashes Len/Lymph: Denies: easy bruising or easy bleeding Medications/Allergies Home Medications Medication Instructions Recorded Confirmed Last Taken Type levetiracetam 750 mg tablet 750 mg PO BID 30 days #60 tabs 06/12/22 10/13/22 09/28/22 Rx citalopram 20 mg tablet (Celexa) 20 mg PO DAILY #30 tabs 08/10/22 10/13/22 09/28/22 Rx paliperidone 6 mg tablet,extended 6 mg PO QAM #14 tabs 08/10/22 10/13/22 09/28/22 Rx release 24 hr (Invega) paliperidone palmitate 234 mg/1.5 234 mg (1.5 mL) IM Q30D #1.5 mL 08/10/22 10/13/22 09/28/22 Rx mL intramuscular syringe (Invega Sustenna) furosemide 20 mg tablet (Lasix) 20 mg PO DAILY #90 tabs 10/12/22 10/13/22 Unknown Rx lactulose 20 gram/30 mL oral 20 g (30 mL) PO DAILY #2,880 mL 10/12/22 10/13/22 Unknown Rx solution spironolactone 100 mg tablet 100 mg PO DAILY #60 tabs 10/12/22 10/13/22 09/28/22 Rx thiamine HCl (vitamin B1) 100 mg 100 mg PO DAILY #90 tabs 10/12/22 10/13/22 Unknown Rx tablet gabapentin 400 mg capsule 400 mg PO TID 10/13/22 10/13/22 Unknown History metformin 500 mg tablet,extended 500 mg PO BID 10/13/22 10/13/22 Unknown History release 24 hr trazodone 50 mg tablet 50 mg PO BEDTIME 10/13/22 10/13/22 Unknown History Allergies Allergy/AdvReac Type Severity Reaction Status Date / Time clozapine [From Clozaril] AdvReac Severe Lowered Verified 10/26/22 23:45 his WBC he says divalproex sodium AdvReac Severe swelling Verified 10/26/22 23:45 [From Depakote] haloperidol [From Haldol] AdvReac Severe swelling Verified 10/26/22 23:45 nitroglycerin AdvReac Severe Stopped Verified 10/26/22 23:45 heart Bee stings Allergy Severe Swelling & Uncoded 10/26/22 23:45 breathing problems, Anaphylactic shock PFSH Acute PFSH: Medical History Abdominal ascites Acne rosacea ALC (alcoholic liver cirrhosis) Alcohol dependence Bipolar disorder Cirrhosis of liver Controlled diabetes mellitus with hyperglycemia COPD (chronic obstructive pulmonary disease) DM neuropathy, painful Essential (primary) hypertension History of alcohol abuse daily use of hard liquor History of coronary artery disease History of CVA (cerebrovascular accident) 2010 Right side weakness due to a bleed History of memory loss History of schizophrenia Hyperammonemia Hypoxia Major depression, recurrent, chronic Mixed hyperlipidemia Nicotine dependence, cigarettes, uncomplicated Nicotine dependence, unspecified, uncomplicated Psoriasis Psychiatric care Schizoaffective disorder Schizophrenia Seizure disorder Suicidal ideation Traumatic brain injury UTI (urinary tract infection) Surgical History History of cardiac catheterization ~2014 done in [place], reports they discussed possible stent but he declined History of colonoscopy with polypectomy 2015 History of esophagogastroduodenoscopy (EGD) History of eye surgery Family History Other Dementia Diabetes Hypertension Lung disease Psychiatric illness Stroke Denies family history of Chronic kidney disease (CKD) Anesthesia complication Bleeding disorder Cancer Social History Smoking and tobacco status: current every day smoker cigarettes Packs smoked per day: 2.5 Second hand smoke exposure: Yes Alcohol intake: current Alcohol intake frequency: 3 or more drinks per day Alcohol type: hard liquor Substance/Drug Use: never Adopted: No Caregiver/support person: Yes Lives independently: No Household members: friend(s) and caregiver Housing: Manufactured/Mobile home Marital status: Number of children: 8 service: No Current occupational status: disabled Pets and animals: Yes Do you think of yourself as: Straight/Heterosexual Current gender identity: Male Vitals/I&O/Wt Last Vital Signs Temp 98.0 F 10/27/22 06:39 Pulse 87 10/27/22 06:45 Resp 20 H 10/27/22 06:45 BP 113/73 10/27/22 06:45 Pulse Ox 94 10/27/22 06:45 O2 Del Method Nasal Cannula 10/27/22 06:30 O2 Flow Rate 3 10/27/22 06:30 10/26/22 10/26/22 10/27/22 14:59 22:59 06:59 Intake Total 500 / 500 Balance 500 / 500 Weight last 48 hrs Weight 78.471 kg Weight 86.183 kg Physical Exam Narrative: General: No acute distress, AO x3 HEENT: PERRLA, pupils bilaterally equal and reactive, pallors not present Chest: Normal vesicular breath sounds, no added sounds, equal good air entry bilaterally CVS: S1-S2 regular, no murmurs, no tachycardia, no gallops, no rubs Abdomen: Soft, distended, peritoneal cathetr in place Extremities: RLE weakness significant drift, unable to lift off the bed Data 10/27/22 00:47 10/27/22 04:03 Other Labs: Radiology Impressions Head CT 10/27/22 00:41 IMPRESSION: No acute intracranial findings. Lumbar Spine CT 10/27/22 00:41 IMPRESSION: 1. Large right paracentral disc herniation at L5-S1 with mass effect on exiting S1 nerve root. 2. Large posterior disc bulge at L4-L5 with degenerative posterior osseous ridging and in combination with ligament hypertrophy is causing severe central canal stenosis. 3. Degenerative changes as described above but no acute pathology detected. Laboratory Results WBC 11.8 10^3/uL (4.0-10.0) H 10/27/22 00:47 RBC 4.13 10^6/uL (4.1-5.3) 10/27/22 00:47 Hgb 13.5 g/dL (11.7-16.6) 10/27/22 00:47 Hct 38.4 % (42.0-52.0) L 10/27/22 00:47 MCV 93.0 fl (80-94) 10/27/22 00:47 MCH 32.7 pg (28.0-34.0) 10/27/22 00:47 MCHC 35.2 g/dL (30.0-36.0) 10/27/22 00:47 RDW 13.0 % (12.1-15.1) 10/27/22 00:47 Plt Count 196 10^3/cmm (130-400) 10/27/22 00:47 MPV 10.1 fL (7.4-10.4) 10/27/22 00:47 Neut % (Auto) 74.9 % 10/27/22 00:47 Lymph % (Auto) 9.9 % 10/27/22 00:47 Tripp % (Auto) 12.4 % 10/27/22 00:47 Eos % (Auto) 1.4 % 10/27/22 00:47 Baso % (Auto) 0.3 % 10/27/22 00:47 Neut # (Auto) 8.84 10^3/uL (1.8-7.7) H 10/27/22 00:47 Lymph # (Auto) 1.2 10^3/uL (0.8-4.8) 10/27/22 00:47 Tripp # (Auto) 1.5 10^3/uL (0.2-0.9) H 10/27/22 00:47 Eos # (Auto) 0.2 10^3/uL (0.0-0.8) 10/27/22 00:47 Baso # (Auto) 0.0 10^3/uL (0.0-0.1) 10/27/22 00:47 Nucleated RBC % (auto) 0 % 10/27/22 00:47 Nucleated RBCs # 0.0 /100WBC 10/27/22 00:47 PT 16.00 SECONDS (12.1-14.9) H 10/27/22 00:47 INR 1.24 (0.8-1.2) H 10/27/22 00:47 Sodium 110 mmol/L (136-145) L* 10/27/22 04:03 Potassium 5.3 mmol/L (3.5-5.1) H 10/27/22 04:03 Chloride 82 mmol/L (98-107) L 10/27/22 04:03 Carbon Dioxide 19 mmol/L (22-29) L 10/27/22 04:03 Anion Gap 14.3 (5-19) 10/27/22 04:03 BUN 16 mg/dL (6-20) 10/27/22 04:03 Creatinine 0.3 mg/dL (0.7-1.2) L 10/27/22 04:03 GFR Calculation 318.7 mL/min (90-130) H 10/27/22 04:03 Glucose 84 mg/dL (65-115) 10/27/22 04:03 Calculated Osmolality 230 mOsm/kg (285-295) L 10/27/22 04:03 Lactic Acid 1.4 mmol/L (0.5-2.2) 10/27/22 00:47 Calcium 7.9 mg/dL (8.5-10.5) L 10/27/22 04:03 Total Bilirubin 1.7 mg/dL (0.15-1.2) H 10/27/22 00:47 AST 72 U/L (0-40) H 10/27/22 00:47 ALT 41 U/L (0-41) 10/27/22 00:47 Alkaline Phosphatase 90 U/L (40-130) 10/27/22 00:47 Ammonia 91 umol/L (16-60) H 10/27/22 00:47 C-Reactive Protein 5.7 mg/L (0.0-4.9) H 10/27/22 00:47 Total Protein 6.0 g/dL (6.6-8.7) L 10/27/22 00:47 Albumin 2.4 g/dL (3.5-5.2) L 10/27/22 00:47 Globulin 3.6 g/dL (1.3-4.6) 10/27/22 00:47 Ethyl Alcohol 32 mg/dL (0-10) H 10/27/22 00:47 A&P Assessment and plan (1) Acute hyponatremia: Severe hyponatremia, Na 107, up to 110 after hypertonic saline running at 60 cc/hr reduce rate to 30 cc/ hr check NA every 4 hrs, next at 8 am slow correction with aim to correct 8-10 meq /24 hrs currently alert and oriented (2) Lumbar disc herniation: CT lumbar spine with large right paracentral disc herniation at L5-S1 with mass effect on exiting S1 nerve root. this may be the cause of his RLE extremity however hyponatremia, alcohol intoxication, hyperammonemia remain confounding factors. dexamethasone 10 mg iv x 1 now due to concern for nerve root compression May need spine surgery consult to assess for decompression if symptoms fail to imprve with correction of Na (3) Ascites due to alcoholic cirrhosis: peritoneal drain in place (4) Hyperkalemia: corrected from 5.5--> 5.3, monitor for now. hold spirinolactone Plan Hyperammonemia: lactulose 20 gm po every 8 hrs, titrate to 2-3 BM per day Attestations Medical Necessity Statement*: > 2 midnight admission anticipated for above care Coding Level of Care Code Critical Care >/= 30 minutes Diagnoses Acute hyponatremia E87.1 Lumbar disc herniation M51.26 Ascites due to alcoholic cirrhosis K70.31 Hyperkalemia E87.5
[2022-10-27] MEDS: lactulose oral liq 20 gm/30 mL UDC PO ×3 (08:13→18:06)
[2022-10-27] MEDS: dexamethasone 10 mg/mL INJ IVP (08:13)
[2022-10-27] MEDS: levETIRAcetam 500 mg Tablet 750 MG PO ×2 (08:14→17:15)
[2022-10-27] MEDS: thiamine 100 mg Tablet PO (08:15)
[2022-10-27] MEDS: citalopram 20 mg Tablet PO (08:15)
[2022-10-27] MEDS: pantoprazole DR 40 mg Tablet PO (08:15)
[2022-10-27 08:27] LABS: Cortisol Random 7.91 ug/dL (2.47-19.5)
[2022-10-27 09:13] LABS: Add Urine Microscopic? NO; Charge for UA Resulting for Rev
[2022-10-27 09:27] LABS: Bilirubin Urine Neg (Negative); Blood Urine Neg (Negative); Glucose Urine UA Norm (Normal); Ketones Urine 1+ (Negative); Leukocyte Esterase Urine Negative (Negative); Nitrate Urine Negative (Negative); Protein Urine Neg (Negative); Specific Gravity, Urine 1.015 (1.005-1.030); Urine Appearance Clear (CLEAR); Urine Color Dark Yellow (Yellow); Urobilinogen Urine 4 mg/dL (Negative); pH Urine 5 (5-7)
[2022-10-27 09:41] LABS: Potassium, Radom Urine 73 mmol/L; Urine Creatinine 153 mg/dL (39-259)
[2022-10-27 09:44] LABS: Thyroid Stimulating Hormone 2.62 uIU/mL (0.27-4.20)
[2022-10-27 09:46] LABS: Sodium 112 mmol/L (136-145)
[2022-10-27 09:52] LABS: Urine Random Chloride 18 mmol/L; Urine Random Sodium < 10 mmol/L
--- NOTE | 2022-10-27 11:15 | PM.CONSULT ---
Providers/Reason For Consult Consulting Physician/Specialty*: [facility]/Nephrology Reason for Consult*: Hyponatremia Attending Physician: Owen Pierce MD Primary Care Provider: YENI Perez History of Present Illness History of Present Illness patient is a 47-year-old male with multiple comorbidities including history of depression schizophrenia diabetes-, liver cirrhosis with recurrent ascites with abdominal drain who was recently admitted here due to suicidal ideation and drainage of the peritoneal drain site. He presents back to the emergency department today complaining of generalized weakness and recurrent falls. In the ED he was noted to have stable vitals and lab data revealed sodium of 107 with potassium 5.3, CO2 of 19. Patient was placed on 3% saline at 60 cc an hour which was now dropped to 30 cc an hour. Sodium improved to 112 currently. On review of prior labs baseline sodiums are in the range of high 120s to low 130s range. No mental status changes Review of Systems Narrative: Other review of systems negative Medications/Allergies Home Medications Medication Instructions Recorded Confirmed Last Taken Type levetiracetam 750 mg tablet 750 mg PO BID 30 days #60 tabs 06/12/22 10/27/22 09/28/22 Rx citalopram 20 mg tablet (Celexa) 20 mg PO DAILY #30 tabs 08/10/22 10/27/22 09/28/22 Rx paliperidone 6 mg tablet,extended 6 mg PO QAM #14 tabs 08/10/22 10/27/22 09/28/22 Rx release 24 hr (Invega) paliperidone palmitate 234 mg/1.5 234 mg (1.5 mL) IM Q30D #1.5 mL 08/10/22 10/27/22 09/28/22 Rx mL intramuscular syringe (Invega Sustenna) furosemide 20 mg tablet (Lasix) 20 mg PO DAILY #90 tabs 10/12/22 10/27/22 Unknown Rx lactulose 20 gram/30 mL oral 20 g (30 mL) PO DAILY #2,880 mL 10/12/22 10/27/22 Unknown Rx solution spironolactone 100 mg tablet 100 mg PO DAILY #60 tabs 10/12/22 10/27/22 09/28/22 Rx thiamine HCl (vitamin B1) 100 mg 100 mg PO DAILY #90 tabs 10/12/22 10/27/22 Unknown Rx tablet gabapentin 400 mg capsule 400 mg PO TID 10/13/22 10/27/22 Unknown History metformin 500 mg tablet,extended 500 mg PO BID 10/13/22 10/27/22 Unknown History release 24 hr trazodone 50 mg tablet 50 mg PO BEDTIME 10/13/22 10/27/22 Unknown History Allergies Allergy/AdvReac Type Severity Reaction Status Date / Time clozapine [From Clozaril] AdvReac Severe Lowered Verified 10/26/22 23:45 his WBC he says divalproex sodium AdvReac Severe swelling Verified 10/26/22 23:45 [From Depakote] haloperidol [From Haldol] AdvReac Severe swelling Verified 10/26/22 23:45 nitroglycerin AdvReac Severe Stopped Verified 10/26/22 23:45 heart Bee stings Allergy Severe Swelling & Uncoded 10/26/22 23:45 breathing problems, Anaphylactic shock Current Medications Generic Name Dose Route Start Last Admin Trade Name Freq PRN Reason Stop Dose Admin Citalopram Hydrobromide 20 mg 10/27/22 09:00 10/27/22 08:15 Citalopram 20 Mg Tablet PO 20 mg DAILY SAMANTA Administration Sodium Chloride 500 mls @ 30 mls/hr 10/27/22 02:45 10/27/22 07:36 Sodium Chloride 3% IV 30 mls/hr .[id number] SAMANTA Infusion Lactulose 20 gm 10/27/22 06:45 10/27/22 08:13 Lactulose Oral Liq 20 Gm/30 Ml Udc PO 20 gm Q6H SAMANTA Administration Levetiracetam 750 mg 10/27/22 09:00 10/27/22 08:14 Levetiracetam 500 Mg Tablet PO 750 mg BID SAMANTA Administration Pantoprazole Sodium 40 mg 10/27/22 09:00 10/27/22 08:[address] 40 Mg Tablet PO 40 mg DAILY SAMANTA Administration Thiamine Mononitrate 100 mg 10/27/22 09:00 10/27/22 08:15 Thiamine 100 Mg Tablet PO 100 mg DAILY SAMANTA Administration PFSH Acute PFSH: Medical History Abdominal ascites Acne rosacea ALC (alcoholic liver cirrhosis) Alcohol dependence Bipolar disorder Cirrhosis of liver Controlled diabetes mellitus with hyperglycemia COPD (chronic obstructive pulmonary disease) DM neuropathy, painful Essential (primary) hypertension History of alcohol abuse daily use of hard liquor History of coronary artery disease History of CVA (cerebrovascular accident) 2009 Right side weakness due to a bleed History of memory loss History of schizophrenia Hyperammonemia Hypoxia Major depression, recurrent, chronic Mixed hyperlipidemia Nicotine dependence, cigarettes, uncomplicated Nicotine dependence, unspecified, uncomplicated Psoriasis Psychiatric care Schizoaffective disorder Schizophrenia Seizure disorder Suicidal ideation Traumatic brain injury UTI (urinary tract infection) Surgical History History of cardiac catheterization ~2014 done in [place], reports they discussed possible stent but he declined History of colonoscopy with polypectomy 2015 History of esophagogastroduodenoscopy (EGD) History of eye surgery Family History Other Dementia Diabetes Hypertension Lung disease Psychiatric illness Stroke Denies family history of Chronic kidney disease (CKD) Anesthesia complication Bleeding disorder Cancer Social History Smoking and tobacco status: current every day smoker cigarettes Packs smoked per day: 2.5 Second hand smoke exposure: Yes Alcohol intake: current Alcohol intake frequency: 3 or more drinks per day Alcohol type: hard liquor Substance/Drug Use: never Adopted: No Caregiver/support person: Yes Lives independently: No Household members: friend(s) and caregiver Housing: Manufactured/Mobile home Marital status: Number of children: 8 service: No Current occupational status: disabled Pets and animals: Yes Do you think of yourself as: Straight/Heterosexual Current gender identity: Male Vitals/I&O/Wt Last Vital Signs Temp 98.0 F 10/27/22 06:39 Pulse 96 10/27/22 08:55 Resp 21 H 10/27/22 08:55 BP 113/73 10/27/22 08:55 Pulse Ox 92 10/27/22 07:15 O2 Del Method Nasal Cannula 10/27/22 06:30 O2 Flow Rate 3 10/27/22 06:30 10/26/22 10/27/22 10/27/22 22:59 06:59 14:59 Intake Total 500 / 500 279 / 279 Balance 500 / 500 279 / 279 Weight last 48 hrs Weight 78.471 kg Weight 86.183 kg Physical Exam Narrative: Awake alert, no acute distress S1-S2 regular rate and rhythm per report Lungs clear per report No edema Data 10/27/22 00:47 10/27/22 08:28 A&P Assessment and plan (1) Hyponatremia: Plan 1. Acute on chronic hyponatremia: Baseline sodiums in the range of high 120s to low 130s range from known history of liver cirrhosis and psych medications likely. Now presented with a sodium of 107 and agree with 3% saline at 30 cc/h for now, BMP every 4 hours, will check urine sodium, urine chloride and urine osmolality. Goal correction up to 8 mEq for the next 24 hours -Agree with holding Aldactone for now 2. Hyperkalemia: Mild, improving, low K diet 3. Metabolic acidosis: Mild, monitor for now. 4. History of liver cirrhosis with recurrent ascites requiring abdominal drain placement. Patient evaluated using audiovisual cart , time spent 35 min Consult Attestations Medical Necessity Statement: per lisa Coding Level of Care Code Acute [facility] Diagnoses Hyponatremia E87.1
--- NOTE | 2022-10-27 12:56 | XRR_ITS ---
PROCEDURE INFORMATION: Exam: XR Chest Exam date and time: 10/27/2022 1:07 PM Age: 47 years old Clinical indication: Pain; On breathing; Additional info: SOB TECHNIQUE: Imaging protocol: Radiologic exam of the chest. Views: 1 view. COMPARISON: CR (CHEST, ) 10/04/2022 10:27 PM FINDINGS: Lungs: Lung volumes are markedly decreased, unchanged likely secondary to body habitus. There are no infiltrates or claritza pulmonary edema detected. Pleural spaces: Unremarkable. No pleural effusion. No pneumothorax. Heart/Mediastinum: Cardiac silhouette is stable and not significantly enlarged for degree of aeration. Bones/joints: Unremarkable for age. XR/XR chest 1V portable [id number] IMPRESSION: Markedly decreased lung volumes otherwise negative chest.
--- NOTE | 2022-10-27 12:57 | P.PN_ITS ---
Subjective Subjective: Patient was seen this morning, he tells me that he is chronically been feeling weak fatigued and tired all over, but now especially he has a right foot drop, he tells me that it feels like lead, he has numbness in his right foot, he cannot walk, due to his right foot dragging, he tells me that this is been going on for the last 1 to 2 weeks, he is very unsteady on his feet, does report falls, does report that he continues to drink alcohol but is reduced it significantly, denies any leakage around the peritoneal drain does complain of abdominal distention and some pain, no nausea, vomiting, no diarrhea, no fevers, denies any perianal anesthesia, no saddle anesthesia, no anesthesia around the groin, no urinary incontinence, no bowel incontinence, he tells me that he has had a stroke he has chronic right-sided deficits after his stroke Vitals/I&O/Wt Last Vital Signs Temp 98.0 F 10/27/22 06:39 Pulse 96 10/27/22 08:55 Resp 21 H 10/27/22 08:55 BP 113/73 10/27/22 08:55 Pulse Ox 92 10/27/22 07:15 O2 Del Method Nasal Cannula 10/27/22 06:30 O2 Flow Rate 3 10/27/22 06:30 10/26/22 10/27/22 10/27/22 22:59 06:59 14:59 Intake Total 500 / 500 279 / 279 Balance 500 / 500 279 / 279 Weight last 48 hrs Weight 78.471 kg Weight 86.183 kg Physical Exam Const: COMMON NORMALS: no acute distress and patient oriented x3 Eye: COMMON NORMALS: Equal, round and reactive pupils present and EOMs intact bilaterally PUPIL: Yes Equal, round and reactive pupils present Resp: COMMON NORMALS: normal respiratory effort, No retractions, No use of accessory muscles and clear to auscultation bilaterally AUSCULTATION: clear to auscultation bilaterally Cardio: COMMON NORMALS: regular rate, regular rhythm, S1 normal heart sound present and S2 normal heart sound present RATE: regular rate RHYTHM: regular rhythm HEART SOUNDS: S1 normal heart sound present and S2 normal heart sound present GI: OTHER: Abdomen soft, slightly distended, good bowel sounds, has diffuse tenderness, peritoneal drain catheter looks clean and dry Extremity: COMMON NORMALS: no pedal edema Neuro: COMMON NORMALS: patient oriented x3, CN's II-XII intact bilaterally and moves all extremities OTHER: On examination, right foot, drop, decreased inversion, eversion, extension, flexion, pinprick and dull sensation, at the level ankle to all toes, digit movement, good DP pulses, no good PT pulses good botello strength, good thigh strength good hip strength, good Strength Psych: COMMON NORMALS: mental status grossly normal Data 10/27/22 00:47 10/27/22 08:28 A&P Assessment and plan (1) Acute hyponatremia: Severe hyponatremia, Na 107, up to 110 after hypertonic saline running at 60 cc/hr reduce rate to 30 cc/ hr check NA every 4 hrs, next at 8 am slow correction with aim to correct 8-10 meq /24 hrs currently alert and oriented, follow commands, no headache, blurry vision, nausea, vomiting Spoke to nephrology, will consult (2) Lumbar disc herniation: 1. ? Large right paracentral disc herniation at L5-S1 with mass effect on exiting S1 nerve root. 2. ? Large posterior disc bulge at L4-L5 with degenerative posterior osseous ridging and in combination with ligament hypertrophy is causing severe central canal stenosis. 3. ? Degenerative changes as described above but no acute pathology detected. -Continue Decadron 6 mg IV push every 24 hours -No significant clinical symptoms related to cauda equina syndrome, but will continue to monitor closely -Disc herniation likely the cause of acute right foot drop -Has chronic right-sided weakness after CVA -We will monitor closely -Discussed with orthopedic service for consideration of surgical intervention once his serum sodiums improve (3) Ascites due to alcoholic cirrhosis: peritoneal drain in place Concern for possible SBP, -Ordered Pro-Felipe, CRP, ascitic studies -We will start Rocephin for now (4) Hyperkalemia: corrected from 5.5--> 5.3, monitor for now. hold spirinolactone (5) Right foot drop: - Acute right foot drop -Likely secondary disc herniation -PT OT -Decadron as of above -As this right foot drop has been going on for the last 2 weeks -We will discuss with orthopedic spine surgery for consideration of surgical invention once patient clinically improves from his hyponatremia and possibly from SBP (6) History of CVA (cerebrovascular accident): - With residual right-sided weakness -Has chronic right-sided weakness, associated with his CVA he tells me I cannot discern any right-sided weakness on examination apart from his right foot drop on examination -PT OT (7) Hyponatremia: (8) Acute neuroleptic-induced akathisia: (9) Diabetic feet: (10) Alcohol dependence: (11) Protein calorie malnutrition: (12) Physical deconditioning: - Significant physical deconditioning (13) COPD (chronic obstructive pulmonary disease): (14) ALC (alcoholic liver cirrhosis): (15) Spontaneous bacterial peritonitis: - Concerns for possible SBP -Given leukocytosis -Abdominal pain, distention -We will order ascites studies -Will order Rocephin -Follow cultures, blood cultures (16) Right sided weakness: - Chronically from right-sided stroke -I cannot discern any weakness except his right foot drop Plan Hyperammonemia: lactulose 20 gm po every 8 hrs, titrate to 2-3 BM per day Reports continued alcoholism Plan for today continue hypertonic saline, monitor serum sodium every 4 hours, PT OT, start antibiotics for SBP, will get ascitic studies, spoke to nephrology, spoke to admit patient, spoke to nursing staff Attestations Medical Necessity Statement*: Patient requires hospitalization, inpatient, greater than 2 midnights for right foot drop, acute hyponatremia, large disc herniation, hyperkalemia, concerns for possible SBP Coding Level of Care Code Critical Care >/= 30 minutes Critical care time (in minutes): 50 The high probability of a clinically significant, sudden or life threatening deterioration, as referenced in this documentation, required my full and direct attention, intervention and personal management. The critical care time shown is in addition to time spent performing any reported separately billable procedures and includes the following: [x] Data and vital sign review and interpretation [x ] Patient assessment, examination and intervention [x] Medication orders and management [x] Patient/Family updates as able [x] Care Coordination and Documentation. Diagnoses Acute hyponatremia E87.1 Lumbar disc herniation M51.26 Ascites due to alcoholic cirrhosis K70.31 Hyperkalemia E87.5 Right foot drop M21.371 History of CVA (cerebrovascular accident) Z86.73 Hyponatremia E87.1 Acute neuroleptic-induced akathisia G25.71; T43.505A Diabetic feet E11.8 Alcohol dependence F10.20 Protein calorie malnutrition E46 Physical deconditioning R53.81 COPD (chronic obstructive pulmonary disease) J44.9 ALC (alcoholic liver cirrhosis) K70.30 Spontaneous bacterial peritonitis K65.2 Right sided weakness R53.1
[2022-10-27] MEDS: cefTRIAXone 1,000 MG in sodium chloride 0.9% (plus) 50 ML 100 MG IV (13:13)
[2022-10-27 13:21] LABS: Sodium 114 mmol/L (136-145)
[2022-10-27 13:59] LABS: Body Fluid Polynuclear #Cells 0.056; Body Fluid WBC 187 /uL; Monocytes # Body Fluid 0.131
[2022-10-27 14:12] LABS: Apprearance, Body Fluid CLOUDY; Color, Body Fluid SLIGHT PINK; Cyto Order Verification No Order
[2022-10-27 14:21] LABS: Fluid Laterality PERITONEAL
[2022-10-27 14:37] LABS: Albumin Body Fluid 0.4 g/dL; Amylase Body Fluid 23 U/L; Cholesterol Body Fluid 10 mg/dL (0-200); Fluid Alkaline Phos. 13 IU/L; LDH Body Fluid 42 U/L; Total Protein Body Fluid 0.9 g/dL; Triglycerides Body Fluid 15 mg/dL (0-150); Uric Acid Body Fluid 2 mg/dL
[2022-10-27] MEDS: sodium chloride 3% 500 ML 30 ML IV (15:24)
[2022-10-27 16:50] LABS: Sodium 117 mmol/L (136-145)
--- NOTE | 2022-10-27 17:06 | PC.NURSE ---
Patients 1600 sodium level up to 117. Called Dr. Moses and received verbal orders to stop 3% Sodium. Gtt paused per provider. No other orders received at this time.
--- NOTE | 2022-10-27 17:08 | PC.NURSE ---
ST recommended increasing liquids to nectar thick liquids
[2022-10-27 19:47] LABS: Adenovirus Not Detected (NOT DETECT); Chlamydia Pneumoniae Not Detected (NOT DETECT); Coronavirus 229E,HKU1,NL63,OC4 Not Detected (NOT DETECT); Human Metapneumovirus Not Detected (NOT DETECT); Human Rhinovirus/Enterovirus Not Detected (NOT DETECT); Influenza A Not Detected (NOT DETECT); Influenza A H1 Not Detected (NOT DETECT); Influenza A H1-2009 Not Detected (NOT DETECT); Influenza A H3 Not Detected (NOT DETECT); Influenza B Not Detected (NOT DETECT); Mycoplasma Pneumoniae Not Detected (NOT DETECT); Parainfluenza Virus Type 1 Not Detected (NOT DETECT); Parainfluenza Virus Type 2 Not Detected (NOT DETECT); Parainfluenza Virus Type 3 Not Detected (NOT DETECT); Parainfluenza Virus Type 4 Not Detected (NOT DETECT); Respiratory Syncytial Virus A Not Detected (NOT DETECT); Respiratory Syncytial Virus B Not Detected (NOT DETECT); SARS-COV-2 Not Detected (NOT DETECT)
[2022-10-27 21:24] LABS: Sodium 118 mmol/L (136-145)
[2022-10-27] MEDS: trazodone 50 mg Tablet PO (21:29)
[2022-10-28] VITALS (99 sets, daily range): BP systolic 104–147; BP diastolic 66–102; PULSE 75–128; RESP 10–38; TEMP 36.6–37.2; O2SAT 81–100
[2022-10-28] MEDS: lactulose oral liq 20 gm/30 mL UDC PO ×4 (00:15→18:31)
[2022-10-28 02:28] LABS: Sodium 122 mmol/L (136-145)
[2022-10-28 03:53] LABS: Basophils % 0.1 %; Eosinophils % 0.1 %; Hematocrit 39.4 % (42.0-52.0); Hemoglobin 13.7 g/dL (11.7-16.6); Lymphocytes # 0.3 10^3/uL (0.8-4.8); Lymphocytes % 4.4 %; Mean Corpuscular HGB Conc 34.8 g/dL (30.0-36.0); Mean Corpuscular Hemoglobin 33.1 pg (28.0-34.0); Mean Corpuscular Volume 95.2 fl (80-94); Monocytes # 0.5 10^3/uL (0.2-0.9); Monocytes % 6.8 %; Neutrophils # 6.59 10^3/uL (1.8-7.7); Neutrophils % 87.9 %; Nucleated Red Blood Cells % 0 %; Platelet Count 143 10^3/cmm (130-400); Red Blood Count 4.14 10^6/uL (4.1-5.3); Red Cell Distribution Width 12.9 % (12.1-15.1); White Blood Count 7.5 10^3/uL (4.0-10.0)
[2022-10-28 04:32] LABS: Ammonia 61 umol/L (16-60)
[2022-10-28 04:42] LABS: Alanine Aminotransferase 38 U/L (0-41); Albumin Level 2.4 g/dL (3.5-5.2); Alkaline Phosphatase 81 U/L (40-130); Anion Gap 12.8 (5-19); Aspartate Amino Transferase 63 U/L (0-40); Blood Urea Nitrogen 11 mg/dL (6-20); C Reactive Protein 6.9 mg/L (0.0-4.9); Calcium 7.6 mg/dL (8.5-10.5); Carbon Dioxide 16 mmol/L (22-29); Chloride 98 mmol/L (98-107); Globulin 3.7 g/dL (1.3-4.6); Glomerular Filtration Rate 228.6 mL/min (90-130); Glucose 149 mg/dL (65-115); Osmolality Calculated 256 mOsm/kg (285-295); Potassium 4.8 mmol/L (3.5-5.1); Procalcitonin 0.08 ng/mL (0-0.5); Sodium 122 mmol/L (136-145); Total Bilirubin 2.2 mg/dL (0.15-1.2); Total Protein 6.1 g/dL (6.6-8.7)
[2022-10-28] MEDS: paliperidone ER 6 mg Tablet PO (05:11)
[2022-10-28 08:24] LABS: Sodium 120 mmol/L (136-145)
[2022-10-28] MEDS: pantoprazole DR 40 mg Tablet PO (09:49)
[2022-10-28] MEDS: citalopram 20 mg Tablet PO (09:49)
[2022-10-28] MEDS: thiamine 100 mg Tablet PO (09:49)
[2022-10-28] MEDS: levETIRAcetam 500 mg Tablet 750 MG PO ×2 (09:49→18:31)
--- NOTE | 2022-10-28 09:52 | MRR_ITS ---
PROCEDURE INFORMATION: Exam: MR Lumbar Spine Without Contrast Exam date and time: 10/28/2022 11:04 AM Age: 47 years old Clinical indication: Low back pain; Additional info: Cauda equina TECHNIQUE: Imaging protocol: Magnetic resonance imaging of the lumbar spine without contrast. COMPARISON: CT lumbar spine wo con* [id number] 10/27/2022 1:30 AM FINDINGS: Bones/joints: Lumbar curvature alignment is unremarkable. There is diminished disc signal with maintained disc height L4-L5 and L5-S1. Minimal degenerative endplate changes present at both levels. Vertebral bodies are otherwise unremarkable. There are no compression fractures or spondylolisthesis. Spinal cord: Visualized cord, conus medullaris and cauda equina are unremarkable without compression. L1-L2: No significant disc bulge or herniation. No severe spinal canal stenosis. No significant neural foraminal narrowing. L2-L3: No significant disc bulge or herniation. No severe spinal canal stenosis. No significant neural foraminal narrowing. L3-L4: Mild left-sided annular disc bulge resulting in mild-moderate narrowing of the left neural foramina. L4-L5: Diffuse posterior disc protrusion slightly more pronounced right of midline and shown on earlier CT to be partially calcified resulting in effacement of the anterior thecal sac and moderate stenosis of the central canal. Mild acquired foraminal narrowing more pronounced on the right L5-S1: Right paracentral disc herniation shown on earlier CT to be partially calcified narrowing the right lateral recess and displacing the right descending S1 nerve root posteriorly. Neural foramina are patent. Soft tissues: Unremarkable. MR/MR lumbar spine wo con* [id number] IMPRESSION: 1. Mild left annular disc bulge L3-L4 resulting in mild-moderate left acquired foraminal narrowing. 2. Diffuse posterior disc protrusion L4-L5 resulting and effacing the anterior thecal sac and moderate stenosis of the central canal. Mild right foraminal stenosis. 3. Right paracentral disc herniation L5-S1 resulting in narrowing of the right lateral recess and some mass effect upon the right descending S1 nerve root.
[2022-10-28] MEDS: LORazepam 2 mg/mL INJ 1 mL 1 MG IVP (10:53)
[2022-10-28 12:35] LABS: Sodium 120 mmol/L (136-145)
[2022-10-28] MEDS: albumin 25 G/100 ML BAG 60 G IV ×2 (13:17→20:12)
[2022-10-28] MEDS: cefTRIAXone 1,000 MG in sodium chloride 0.9% (plus) 50 ML 100 MG IV (13:22)
--- NOTE | 2022-10-28 14:40 | P.PN_ITS ---
Subjective Subjective: Patient was seen this morning, continues to complain of weakness, fatigue, tiredness, he tells me he has not slept in 2 days, he tells me that his right foot continues to have loss of sensation in his right foot, he has some movement, but reduced, no sensation, he tells me that some of the numbness is extending from the foot, up to the mid botello compared to yesterday, no urinary incontinence, no bowel incontinence, saddle or perianal anesthesia, no changes or weakness in his left foot, Vitals/I&O/Wt Last Vital Signs Temp 98.0 F 10/28/22 07:49 Pulse 102 H 10/28/22 12:00 Resp 24 H 10/28/22 12:00 BP 134/89 10/28/22 12:00 Pulse Ox 90 10/28/22 12:00 O2 Del Method Nasal Cannula 10/28/22 12:00 O2 Flow Rate 4 10/28/22 12:00 10/27/22 10/28/22 10/28/22 22:59 06:59 14:59 Intake Total 1021 / 1811 490 / 2301 1490 / 1490 Output Total 1200 / 1200 250 / 250 Balance -179 / 611 490 / 1101 1240 / 1240 Weight last 48 hrs Weight 78.471 kg Weight 86.183 kg Physical Exam Const: COMMON NORMALS: no acute distress and patient oriented x3 Resp: COMMON NORMALS: normal respiratory effort, No retractions, No use of accessory muscles and clear to auscultation bilaterally AUSCULTATION: clear to auscultation bilaterally Cardio: COMMON NORMALS: regular rate, regular rhythm, S1 normal heart sound present and S2 normal heart sound present RATE: regular rate RHYTHM: regular rhythm HEART SOUNDS: S1 normal heart sound present and S2 normal heart sound present GI: COMMON NORMALS: Normal to inspection, nondistended, normoactive bowel sounds present and non-tender Extremity: COMMON NORMALS: no pedal edema NARRATIVE EXTREMITY EXAM: On examination left foot, strength 5 out of 5, good eversion and eversion, extension and flexion, no loss of sensation throughout the foot, extending up the shins Right foot strength, 1 out of 5, for a eversion, inversion, poor extension, fle xion, loss of sensation up to distal botello, no perianal anesthesia, no saddle anesthesia, no urinary or bowel incontinence, has good sensation in the thighs, knees, up to the up to the calf, Neuro: COMMON NORMALS: patient oriented x3 Psych: COMMON NORMALS: mental status grossly normal Data 10/28/22 03:19 10/28/22 12:07 Micro: Microbiology 10/27/22 14:07 Blood Culture - Preliminary Blood NEGATIVE TO DATE 10/27/22 14:07 Blood Culture - Preliminary Blood NEGATIVE TO DATE 10/27/22 13:00 Gram Stain - Final Peritoneal Fluid A&P Assessment and plan (1) Acute hyponatremia: ,Severe hyponatremia, 120 Hypertonic saline has been stopped check NA every 4 hrs, next at 8 am slow correction with aim to correct 8-10 meq /24 hrs currently alert and oriented, follow commands, no headache, blurry vision, nausea, vomiting Spoke to nephrology, will consult (2) Lumbar disc herniation: 1. ? Large right paracentral disc herniation at L5-S1 with mass effect on exiting S1 nerve root. 2. ? Large posterior disc bulge at L4-L5 with degenerative posterior osseous ridging and in combination with ligament hypertrophy is causing severe central canal stenosis. 3. ? Degenerative changes as described above but no acute pathology detected. -Continue Decadron 6 mg IV push every 24 hours -No significant clinical symptoms related to cauda equina syndrome, but will continue to monitor closely -Disc herniation likely the cause of acute right foot drop -Has chronic right-sided weakness after CVA -We will monitor closely -Due to complaints of weakness extending up to distal botello, will perform a MRI of the lumbar spine, to consider possible slowly developing cauda equina syndrome although left lower extremity has good strength, and sensation (3) Ascites due to alcoholic cirrhosis: peritoneal drain in place Concern for possible SBP, -ascitic studies, will follow -Continue Rocephin (4) Hyperkalemia: corrected from 5.5--> 5.3, monitor for now. hold spirinolactone (5) Right foot drop: - Acute right foot drop -Likely secondary disc herniation -PT OT -Decadron as of above -As this right foot drop has been going on for the last 2 weeks -We will discuss with orthopedic spine surgery for consideration of surgical invention once patient clinically improves from his hyponatremia and possibly from SBP (6) History of CVA (cerebrovascular accident): - With residual right-sided weakness -Has chronic right-sided weakness, associated with his CVA he tells me I cannot discern any right-sided weakness on examination apart from his right foot drop on examination -PT OT (7) Hyponatremia: (8) Acute neuroleptic-induced akathisia: (9) Diabetic feet: (10) Alcohol dependence: (11) Protein calorie malnutrition: (12) Physical deconditioning: - Significant physical deconditioning (13) COPD (chronic obstructive pulmonary disease): (14) ALC (alcoholic liver cirrhosis): (15) Spontaneous bacterial peritonitis: - Concerns for possible SBP -Given leukocytosis -Abdominal pain, distention -Ascites studies slightly pink, 187 WBCs, mostly PMN cells, glucose 107 -Continue Rocephin -Follow cultures, blood cultures (16) Right sided weakness: - Chronically from right-sided stroke -I cannot discern any weakness except his right foot drop Plan Hyperammonemia: lactulose 20 gm po every 8 hrs, titrate to 2-3 BM per day Reports continued alcoholism Plan for today monitor serum sodium, up out of bed, PT OT, continue antibiotic therapy, will perform MRI lumbar spine to evaluate for possible cauda equina syndrome Attestations Medical Necessity Statement*: Patient requires hospitalization for hyponatremia, SBP, right foot drop Diagnoses Acute hyponatremia E87.1 Lumbar disc herniation M51.26 Ascites due to alcoholic cirrhosis K70.31 Hyperkalemia E87.5 Right foot drop M21.371 History of CVA (cerebrovascular accident) Z86.73 Hyponatremia E87.1 Acute neuroleptic-induced akathisia G25.71; T43.505A Diabetic feet E11.8 Alcohol dependence F10.20 Protein calorie malnutrition E46 Physical deconditioning R53.81 COPD (chronic obstructive pulmonary disease) J44.9 ALC (alcoholic liver cirrhosis) K70.30 Spontaneous bacterial peritonitis K65.2 Right sided weakness R53.1
[2022-10-28] MEDS: dexamethasone 10 mg/mL INJ 6 MG IVP (15:19)
[2022-10-28 16:25] LABS: Sodium 123 mmol/L (136-145)
[2022-10-28] MEDS: nystatin cream 30 gm 1 APPLIC TOPICAL (18:32)
--- NOTE | 2022-10-28 18:50 | XRR_ITS ---
PROCEDURE INFORMATION: Exam: XR Chest Exam date and time: 10/28/2022 7:12 PM Age: 47 years old Clinical indication: Device placement; Picc; Additional info: Picc insertion TECHNIQUE: Imaging protocol: Radiologic exam of the chest. Views: 1 view. COMPARISON: CR (CHEST, ) 10/27/2022 1:07 PM FINDINGS: Tubes, catheters and devices: A right PICC line has been placed, which terminates in the right atrium. Retraction by approximately [address] the tip in the distal SVC. Lungs: The lungs are underinflated causing vascular crowding. No acute airspace process is seen. Pleural spaces: Unremarkable. No pleural effusion. No pneumothorax. Heart/Mediastinum: Unremarkable. No cardiomegaly. Bones/joints: Unremarkable. XR/XR chest 1V portable [id number] IMPRESSION: No acute cardiopulmonary abnormality. Right PICC line position as noted above.
--- NOTE | 2022-10-28 19:02 | P.PN_ITS ---
Subjective Subjective: no new complaints Vitals/I&O/Wt Last Vital Signs Temp 98.9 F 10/28/22 14:00 Pulse 119 H 10/28/22 18:30 Resp 15 10/28/22 18:30 BP 125/77 10/28/22 18:30 Pulse Ox 95 10/28/22 18:30 O2 Del Method Room Air 10/28/22 16:00 O2 Flow Rate 4 10/28/22 12:00 10/28/22 10/28/22 10/28/22 06:59 14:59 22:59 Intake Total 490 / 2301 1490 / 1490 340 / 1830 Output Total 250 / 250 Balance 490 / 1101 1240 / 1240 340 / 1580 Weight last 48 hrs Weight 78.471 kg Weight 86.183 kg Physical Exam Narrative: Awake alert, no acute distress S1-S2 regular rate and rhythm per report Lungs clear per report No edema Data 10/28/22 03:19 10/28/22 15:49 Micro: Microbiology 10/27/22 13:00 Gram Stain - Final Peritoneal Fluid Anaerobic Culture - Preliminary 10/27/22 14:07 Blood Culture - Preliminary Blood NEGATIVE TO DATE 10/27/22 14:07 Blood Culture - Preliminary Blood NEGATIVE TO DATE A&P Assessment and plan (1) Hyponatremia: Plan 1. Acute on chronic hyponatremia: Baseline sodiums in the range of high 120s to low 130s range from known history of liver cirrhosis and psych medications likel y. Now presented with a sodium of 107 and s/p 3% saline , BMP every 4 hours, Low urine sodium, urine chloride and urine osmolality pending -Agree with holding Aldactone for now -Na 123 currently , added fluid restriction , added urea tabs , iv albumin 2. Hyperkalemia: Mild, improving, low K diet 3. Metabolic acidosis: Mild, monitor for now. 4. History of liver cirrhosis with recurrent ascites requiring abdominal drain placement. Patient evaluated using audiovisual cart , time spent 35 min Attestations Medical Necessity Statement*: per medicine Coding Level of Care Code Acute Code for [facility] Diagnoses Hyponatremia E87.1
--- NOTE | 2022-10-28 19:07 | PC.NURSE ---
Consulted by house charge for picc placement. Consent obtained by myself an patient risk included dvt an infection. RUE scanned with US an basilic vein is the best option. Vein was straight, 4 mm, an free of visible clot. Pt draped in usual sterile fashion. Using real time US lidocaine injected, vein accessed, an picc floated into position. Chest xray ordered an waiting tip confirmation. EBl less then 5 ml. No bleeding no hematoma. Pt arm circumference is 28 cm at 10 cm above the ac space.
[2022-10-28] MEDS: trazodone 50 mg Tablet PO (20:11)
[2022-10-28] MEDS: citric acid-sodium citrate 30 mL UDC PO (20:12)
[2022-10-28 20:34] LABS: Sodium 121 mmol/L (136-145)
--- NOTE | 2022-10-28 21:16 | XRR_ITS ---
PROCEDURE INFORMATION: Exam: XR Chest Exam date and time: 10/28/2022 9:33 PM Age: 47 years old Clinical indication: Device placement; Picc; Additional info: Picc line adjustment TECHNIQUE: Imaging protocol: Radiologic exam of the chest. Views: 1 view. COMPARISON: CR (CHEST, ) 10/28/2022 7:12 PM FINDINGS: Tubes, catheters and devices: The right PICC line has been retracted; however, the tip is now in the left brachiocephalic vein. Lungs: The lungs are underinflated. Mild bilateral interstitial opacities may be secondary to mild pulmonary edema. Pleural spaces: Unremarkable. No pleural effusion. No pneumothorax. Heart/Mediastinum: Unremarkable. No cardiomegaly. Bones/joints: Unremarkable. XR/XR chest 1V portable [id number] IMPRESSION: 1. Interval right PICC line adjustment. The tip is now in the left (contralateral) brachiocephalic vein. 2. Mild pulmonary edema.
--- NOTE | 2022-10-28 21:17 | PC.NURSE ---
Radiology wanted PICC pulled back 3 cm. PICC pulled back 3 cm an dressing changed. Chest xray ordered.
[2022-10-29] VITALS (110 sets, daily range): BP systolic 94–120; BP diastolic 51–83; PULSE 65–108; RESP 6–26; TEMP 36.6–36.9; O2SAT 93–98
[2022-10-29] MEDS: lactulose oral liq 20 gm/30 mL UDC PO ×4 (00:35→23:59)
[2022-10-29 01:34] LABS: Sodium 125 mmol/L (136-145)
[2022-10-29 03:54] LABS: Ammonia 46 umol/L (16-60)
[2022-10-29 03:59] LABS: Alanine Aminotransferase 30 U/L (0-41); Albumin Level 2.5 g/dL (3.5-5.2); Alkaline Phosphatase 69 U/L (40-130); Anion Gap 10.5 (5-19); Aspartate Amino Transferase 56 U/L (0-40); Blood Urea Nitrogen 8 mg/dL (6-20); Calcium 7.6 mg/dL (8.5-10.5); Carbon Dioxide 21 mmol/L (22-29); Chloride 100 mmol/L (98-107); Globulin 2.7 g/dL (1.3-4.6); Glomerular Filtration Rate 318.7 mL/min (90-130); Glucose 125 mg/dL (65-115); Osmolality Calculated 264 mOsm/kg (285-295); Potassium 4.5 mmol/L (3.5-5.1); Sodium 127 mmol/L (136-145); Total Bilirubin 1.4 mg/dL (0.15-1.2); Total Protein 5.2 g/dL (6.6-8.7)
[2022-10-29 04:04] LABS: Procalcitonin 0.06 ng/mL (0-0.5)
[2022-10-29 04:43] LABS: Hematocrit 31.7 % (42.0-52.0); Hemoglobin 10.9 g/dL (11.7-16.6); Lymphocytes # 0.3 10^3/uL (0.8-4.8); Lymphocytes % 4.5 %; Mean Corpuscular HGB Conc 34.4 g/dL (30.0-36.0); Mean Corpuscular Hemoglobin 33.2 pg (28.0-34.0); Mean Corpuscular Volume 96.6 fl (80-94); Mean Platelet Volume 9.8 fL (7.4-10.4); Monocytes # 0.5 10^3/uL (0.2-0.9); Monocytes % 6.8 %; Neutrophils % 88.2 %; Nucleated Red Blood Cells % 0 %; Platelet Count 115 10^3/cmm (130-400); Red Blood Count 3.28 10^6/uL (4.1-5.3); Red Cell Distribution Width 13.3 % (12.1-15.1); White Blood Count 7.6 10^3/uL (4.0-10.0)
[2022-10-29] MEDS: albumin 25 G/100 ML BAG 60 G IV ×3 (04:47→21:23)
[2022-10-29] MEDS: paliperidone ER 6 mg Tablet PO (05:42)
[2022-10-29] MEDS: levETIRAcetam 500 mg Tablet 750 MG PO ×2 (08:26→17:27)
[2022-10-29] MEDS: citalopram 20 mg Tablet PO (08:26)
[2022-10-29] MEDS: pantoprazole DR 40 mg Tablet PO (08:27)
[2022-10-29] MEDS: nystatin cream 30 gm 1 APPLIC TOPICAL ×2 (08:27→17:27)
[2022-10-29] MEDS: thiamine 100 mg Tablet PO (08:27)
[2022-10-29] MEDS: urea 15 gm Powder 30 GM PO (08:27)
--- NOTE | 2022-10-29 08:40 | P.PN_ITS ---
Subjective Subjective: no new complaints Medications: Reviewed: Yes Vitals/I&O/Wt Last Vital Signs Temp 98.4 F 10/29/22 04:00 Pulse 75 10/29/22 08:20 Resp 20 H 10/29/22 08:20 BP 119/72 10/29/22 08:20 Pulse Ox 93 10/29/22 08:20 O2 Del Method Room Air 10/28/22 16:00 O2 Flow Rate 4 10/28/22 12:00 10/28/22 10/29/22 10/29/22 22:59 06:59 14:59 Intake Total 680 / 2170 300 / 2470 Balance 680 / 1920 300 / 2220 Physical Exam Narrative: Awake alert, no acute distress S1-S2 regular rate and rhythm per report Lungs clear per report No edema Data 10/29/22 04:23 10/29/22 03:23 Micro: Microbiology 10/27/22 13:00 Gram Stain - Final Peritoneal Fluid Anaerobic Culture - Preliminary 10/27/22 14:07 Blood Culture - Preliminary Blood NEGATIVE TO DATE 10/27/22 14:07 Blood Culture - Preliminary Blood NEGATIVE TO DATE A&P Assessment and plan (1) Hyponatremia: Plan 1. Acute on chronic hyponatremia: Baseline sodiums in the range of high 120s to low 130s range from known history of liver cirrhosis and psych medications likely. Presented with a sodium of 107 and s/p 3% saline , , Low urine sodium, urine chloride and urine osmolality pending -Agree with holding Aldactone for now, will add lasix 20 mg PO -Na 127 currently , c/w fluid restriction , added urea tabs , iv albumin 2. Hyperkalemia: Mild, improving, low K diet 3. Metabolic acidosis: Mild, monitor for now. 4. HistorY of liver cirrhosis with recurrent ascites requiring abdominal drain placement. Patient evaluated using audiovisual cart , time spent 35 min Attestations Medical Necessity Statement*: per medicine Coding Level of Care Code Acute Code for [facility] Diagnoses Hyponatremia E87.1
[2022-10-29] MEDS: cefTRIAXone 1,000 MG in sodium chloride 0.9% (plus) 50 ML 100 MG IV (12:36)
--- NOTE | 2022-10-29 13:04 | P.PN_ITS ---
Subjective Subjective: Patient was seen this morning, he tells me he did get more sleep overnight, he more has generalized weakness, continues to have right foot drop, no urine incontinence, no bowel incontinence, no saddle or perianal anesthesia, no headache, no blurry vision, no abdominal pain, no fevers, Vitals/I&O/Wt Last Vital Signs Temp 98.4 F 10/29/22 04:00 Pulse 72 10/29/22 12:00 Resp 19 H 10/29/22 12:00 BP 109/70 10/29/22 12:00 Pulse Ox 95 10/29/22 12:00 O2 Del Method Room Air 10/28/22 16:00 O2 Flow Rate 4 10/28/22 12:00 10/28/22 10/29/22 10/29/22 22:59 06:59 14:59 Intake Total 680 / 2170 400 / 2570 Balance 680 / 1920 400 / 2320 Physical Exam Const: COMMON NORMALS: no acute distress and patient oriented x3 Resp: COMMON NORMALS: normal respiratory effort, No retractions, No use of acc essory muscles and clear to auscultation bilaterally AUSCULTATION: clear to auscultation bilaterally Cardio: COMMON NORMALS: regular rate, regular rhythm, S1 normal heart sound present and S2 normal heart sound present RATE: regular rate RHYTHM: regular rhythm HEART SOUNDS: S1 normal heart sound present and S2 normal heart sound present GI: COMMON NORMALS: Normal to inspection, nondistended, normoactive bowel sounds present and non-tender Extremity: COMMON NORMALS: no calf tenderness and no pedal edema Neuro: COMMON NORMALS: patient oriented x3 Psych: COMMON NORMALS: mental status grossly normal Data 10/29/22 04:23 10/29/22 03:23 Micro: Microbiology 10/27/22 13:00 Gram Stain - Final Peritoneal Fluid Anaerobic Culture - Preliminary 10/27/22 14:07 Blood Culture - Preliminary Blood NEGATIVE TO DATE 10/27/22 14:07 Blood Culture - Preliminary Blood NEGATIVE TO DATE A&P Assessment and plan (1) Acute hyponatremia: Severe hyponatremia, resolving, serum sodium 127 Hypertonic saline has been stopped Monitor serum sodium, and urea tablets, Lasix restarted Nephrology on consult currently alert and oriented, follow commands, no headache, blurry vision, nausea, vomiting We will moved to general medical floors (2) Lumbar disc herniation: 1. ? Large right paracentral disc herniation at L5-S1 with mass effect on exiting S1 nerve root. 2. ? Large posterior disc bulge at L4-L5 with degenerative posterior osseous ridging and in combination with ligament hypertrophy is causing severe central canal stenosis. 3. ? Degenerative changes as described above but no acute pathology detected. Lumbar MRI was ordered as there was concerns for cauda equina syndrome 1. ? Mild left annular disc bulge L3-L4 resulting in mild-moderate left acquired foraminal narrowing. 2. ? Diffuse posterior disc protrusion L4-L5 resulting and effacing the anterior thecal sac and moderate stenosis of the central canal. Mild right foraminal stenosis. 3. ? Right paracentral disc herniation L5-S1 resulting in narrowing of the right lateral recess and some mass effect upon the right descending S1 nerve root. -Continue Decadron 6 mg IV push every 24 hours -No significant clinical symptoms related to cauda equina syndrome currently, no urine incontinence, no bowel incontinence, no saddle or perineal anesthesia continues to have complaints of foot drop on the right, but will continue to monitor closely -Has chronic right-sided weakness after CVA -We will monitor closely -Dr. Gallo consulted for orthopedic surgery for consideration of surgical intervention as patient tells me that he lives at home with his , he does not have a lot of help at home, he cannot walk due to foot drop in the weakness (3) Ascites due to alcoholic cirrhosis: peritoneal drain in place (4) Hyperkalemia: corrected from 5.5--> 5.3, monitor for now. hold spirinolactone (5) Right foot drop: - Acute right foot drop -Likely secondary disc herniation -PT OT -Decadron as of above -As this right foot drop has been going on for the last 2 weeks -As above (6) History of CVA (cerebrovascular accident): - With residual right-sided weakness -Has chronic right-sided weakness, associated with his CVA he tells me I cannot discern any right-sided weakness on examination apart from his right foot drop on examination -PT OT (7) Hyponatremia: (8) Acute neuroleptic-induced akathisia: (9) Diabetic feet: (10) Alcohol dependence: (11) Protein calorie malnutrition: (12) Physical deconditioning: - Significant physical deconditioning (13) COPD (chronic obstructive pulmonary disease): (14) ALC (alcoholic liver cirrhosis): (15) Spontaneous bacterial peritonitis: - Unlikely to spontaneous bacterial peritonitis as cultures remain negative, he is afebrile -Abdominal pain, distention resolved -Ascites studies slightly pink, 187 WBCs, mostly PMN cells, glucose 107 -Blood cultures negative, Gram stain no organisms, no WBCs, anaerobic culture negative so far -Continue Rocephin -Follow cultures, blood cultures (16) Right sided weakness: - Chronically from right-sided stroke -I cannot discern any weakness except his right foot drop Plan Hyperammonemia: lactulose 20 gm po every 8 hrs, titrate to 2-3 BM per day Reports continued alcoholism Plan for today monitor serum sodium, up out of bed, PT OT, continue antibiotic therapy, Dr. Gallo consulted, consideration of surgical invention, spoke to orthopedic service Attestations Medical Necessity Statement*: Patient requires hospitalization for right foot drop, hyponatremia, deconditioning, protein calorie malnutrition and High MDM includes number and complexity of problems actively addressed during encounter, amount and/or complexity of data reviewed/ordered and described risk of complication, morbidity or mortality of management as documented Diagnoses Acute hyponatremia E87.1 Lumbar disc herniation M51.26 Ascites due to alcoholic cirrhosis K70.31 Hyperkalemia E87.5 Right foot drop M21.371 History of CVA (cerebrovascular accident) Z86.73 Hyponatremia E87.1 Acute neuroleptic-induced akathisia G25.71; T43.505A Diabetic feet E11.8 Alcohol dependence F10.20 Protein calorie malnutrition E46 Physical deconditioning R53.81 COPD (chronic obstructive pulmonary disease) J44.9 ALC (alcoholic liver cirrhosis) K70.30 Spontaneous bacterial peritonitis K65.2 Right sided weakness R53.1
--- NOTE | 2022-10-29 13:54 | PC.OT ---
OT treatment attempted. Pt. states he is in pain and declines treatment for today. Pt. states nursing already knows about his pain level (nurse was documenting outside of pt's room).
--- NOTE | 2022-10-29 14:31 | P.CONIM_ITS ---
Providers/Reason For Consult Consulting Physician/Specialty*: Ortho Spine Reason for Consult*: Leg weakness Attending Physician: Owen Pierce MD Primary Care Provider: YENI Perez History of Present Illness History of Present Illness Reinaldo Flores is a 47 year old male who was evaluated in ICU for with no family present. Orthopedics was consulted for right leg weakness. He has a history of multiple falls he states that this been ongoing for approximately 2 w eeks which is when he noticed the weakness in his right leg. He denies any loss of bowel or bladder control had intermittent back pain. States he feels that he has been dragging his right foot. He reports back and right leg weakness. Activities seem to make things much worse his inability to stand has caused the weakness to get worse and him falling. He does use alcohol in the form of vodka frequently and smokes 3 packs of cigarettes per day has done so for a number of years. Reports numbness down in his foot as well. He has not found much to make things better. Review of Systems Narrative: Other review of systems negative Medications/Allergies Home Medications Medication Instructions Recorded Confirmed Last Taken Type levetiracetam 750 mg tablet 750 mg PO BID 30 days #60 tabs 06/12/22 10/27/22 09/28/22 Rx citalopram 20 mg tablet (Celexa) 20 mg PO DAILY #30 tabs 08/10/22 10/27/22 09/28/22 Rx paliperidone 6 mg tablet,extended 6 mg PO QAM #14 tabs 08/10/22 10/27/22 09/28/22 Rx release 24 hr (Invega) paliperidone palmitate 234 mg/1.5 234 mg (1.5 mL) IM Q30D #1.5 mL 08/10/22 10/27/22 09/28/22 Rx mL intramuscular syringe (Invega Sustenna) furosemide 20 mg tablet (Lasix) 20 mg PO DAILY #90 tabs 10/12/22 10/27/22 Unknown Rx lactulose 20 gram/30 mL oral 20 g (30 mL) PO DAILY #2,880 mL 10/12/22 10/27/22 Unknown Rx solution spironolactone 100 mg tablet 100 mg PO DAILY #60 tabs 10/12/22 10/27/22 09/28/22 Rx thiamine HCl (vitamin B1) 100 mg 100 mg PO DAILY #90 tabs 10/12/22 10/27/22 Unknown Rx tablet gabapentin 400 mg capsule 400 mg PO TID 10/13/22 10/27/22 Unknown History metformin 500 mg tablet,extended 500 mg PO BID 10/13/22 10/27/22 Unknown History release 24 hr trazodone 50 mg tablet 50 mg PO BEDTIME 10/13/22 10/27/22 Unknown History Allergies Allergy/AdvReac Type Severity Reaction Status Date / Time clozapine [From Clozaril] AdvReac Severe Lowered Verified 10/26/22 23:45 his WBC he says divalproex sodium AdvReac Severe swelling Verified 10/26/22 23:45 [From Depakote] haloperidol [From Haldol] AdvReac Severe swelling Verified 10/26/22 23:45 nitroglycerin AdvReac Severe Stopped Verified 10/26/22 23:45 heart Bee stings Allergy Severe Swelling & Uncoded 10/26/22 23:45 breathing problems, Anaphylactic shock Current Medications Generic Name Dose Route Start Last Admin Trade Name Hasrhaq PRN Reason Stop Dose Admin Citalopram Hydrobromide 20 mg 10/27/22 09:00 10/29/22 08:26 Citalopram 20 Mg Tablet PO 20 mg DAILY SAMANTA Administration Dexamethasone 6 mg 10/28/22 15:00 10/28/22 15:19 Dexamethasone 10 Mg/Ml Inj IVP 6 mg Q24H SAMANTA Administration Ceftriaxone Sodium 1,000 mg/ 50 mls @ 100 mls/hr 10/27/22 13:00 10/29/22 14:06 Sodium Chloride IV Infused Q24H SAMANTA Infusion Protocol Albumin Human 25 g in 100 mls @ 60 mls/hr 10/28/22 12:15 10/29/22 12:37 Albumin IV 60 mls/hr Q8H SAMANTA Administration Lactulose 20 gm 10/27/22 06:45 10/29/22 12:34 Lactulose Oral Liq 20 Gm/30 Ml Udc PO Not Given Q6H SAMANTA Levetiracetam 750 mg 10/27/22 09:00 10/29/22 08:26 Levetiracetam 500 Mg Tablet PO 750 mg BID SAMANTA Administration Nystatin 1 applic 10/28/22 18:00 10/29/22 08:27 Nystatin Cream 30 Gm TOPICAL 1 applic BID SAMANTA Administration Paliperidone 6 mg 10/28/22 06:00 10/29/22 05:42 Paliperidone Er 6 Mg Tablet PO 6 mg QAM SAMANTA Administration Pantoprazole Sodium 40 mg 10/27/22 09:00 10/29/22 08:[address] 40 Mg Tablet PO 40 mg DAILY SAMANTA Administration Thiamine Mononitrate 100 mg 10/27/22 09:00 10/29/22 08:27 Thiamine 100 Mg Tablet PO 100 mg DAILY SAMANTA Administration Trazodone HCl 50 mg 10/27/22 21:00 10/28/22 20:11 Trazodone 50 Mg Tablet PO 50 mg BEDTIME SAMANTA Administration Urea 30 gm 10/29/22 09:00 10/29/22 08:27 Urea 15 Gm Powder PO 30 gm DAILY SAMANTA Administration PFSH Acute PFSH: Medical History (Updated 10/29/22 @ 14:40 by Fitz Linder PA-C) Abdominal ascites Acne rosacea ALC (alcoholic liver cirrhosis) Alcohol dependence Bipolar disorder Cirrhosis of liver Controlled diabetes mellitus with hyperglycemia COPD (chronic obstructive pulmonary disease) DM neuropathy, painful Essential (primary) hypertension History of alcohol abuse daily use of hard liquor History of coronary artery disease History of CVA (cerebrovascular accident) 2009 Right side weakness due to a bleed History of memory loss History of schizophrenia Hyperammonemia Hypoxia Major depression, recurrent, chronic Mixed hyperlipidemia Nicotine dependence, cigarettes, uncomplicated Nicotine dependence, unspecified, uncomplicated Psoriasis Psychiatric care Right foot drop Schizoaffective disorder Schizophrenia Seizure disorder Suicidal ideation Traumatic brain injury UTI (urinary tract infection) Surgical History History of cardiac catheterization ~2014 done in [place], reports they discussed possible stent but he declin ed History of colonoscopy with polypectomy 2016 History of esophagogastroduodenoscopy (EGD) History of eye surgery Family History Other Dementia Diabetes Hypertension Lung disease Psychiatric illness Stroke Denies family history of Chronic kidney disease (CKD) Anesthesia complication Bleeding disorder Cancer Social History Smoking and tobacco status: current every day smoker cigarettes Packs smoked per day: 2.5 Second hand smoke exposure: Yes Alcohol intake: current Alcohol intake frequency: 3 or more drinks per day Alcohol type: hard liquor Substance/Drug Use: never Adopted: No Caregiver/support person: Yes Lives independently: No Household members: friend(s) and caregiver Housing: Manufactured/Mobile home Marital status: Number of children: 8 service: No Current occupational status: disabled Pets and animals: Yes Do you think of yourself as: Straight/Heterosexual Current gender identity: Male Vitals/I&O/Wt Last Vital Signs Temp 98.0 F 10/29/22 13:35 Pulse 92 10/29/22 13:35 Resp 18 10/29/22 13:35 BP 113/67 10/29/22 13:35 Pulse Ox 97 10/29/22 13:35 O2 Del Method Room Air 10/28/22 16:00 O2 Flow Rate 4 10/28/22 12:00 10/28/22 10/29/22 10/29/22 22:59 06:59 14:59 Intake Total 680 / 2170 400 / 2570 50 / 50 Balance 680 / 1920 400 / 2320 50 / 50 Physical Exam Narrative: Patient is alert orient x3 has a good general appearance normal mood and affect. Patient presents with normal gait. Unable to dorsiflex right lower extremity and weak with plantarflexion on the right. He has full range of motion of the left foot/ankle. Mild palpatory and percussion pain throughout the paraspinous musculature of the thoracolumbar spine. Normal sensation to light touch through all dermatomal layers. Decreased sensation to light touch diffusely down the right lower extremity. 4/5 strength in the left lower extremity with obvious right foot drop. normal sensation light touch down left lower extremity with 5/5 motor strength throughout all motor groups. No palpable pain over the SI joints bilaterally. Negative Arsen and Fabere sign. Negative straight leg raise bilaterally. Skin is clear warm with normal sensation to light touch, calves are supple with no medial thigh tenderness, negative Homans' sign. No palpable lymphadenopathy bilaterally. Reflexes are 1+ and symmetric about the knees and Achilles. No hyperreflexia or clonus. Downgoing Babinski's bilaterally. Dorsalis pedis and posterior tibial pulses are 2+. No palpable edema bilaterally. HENMT: COMMON NORMALS: normocephalic HEAD & SCALP: normocephalic Resp: COMMON NORMALS: normal respiratory effort Cardio: COMMON NORMALS: regular rate and regular rhythm RATE: regular rate RHYTHM: regular rhythm GI: COMMON NORMALS: Soft to palpation and non-tender PALPATION: Yes Soft to palpation : COMMON NORMALS: Yes no CVA tenderness BLADDER/KIDNEY EXAM: Yes no CVA tenderness Back/Pelvis: COMMON NORMALS: no CVA tenderness Psych: COMMON NORMALS: mental status grossly normal and cooperative Data 10/29/22 04:23 10/29/22 03:23 Micro: Microbiology 10/27/22 13:00 Gram Stain - Final Peritoneal Fluid Anaerobic Culture - Preliminary 10/27/22 14:07 Blood Culture - Preliminary Blood NEGATIVE TO DATE 10/27/22 14:07 Blood Culture - Preliminary Blood NEGATIVE TO DATE MRI: Radiologist's impression: MR/MR lumbar spine wo con* [id number] IMPRESSION: 1. ? Mild left annular disc bulge L3-L4 resulting in mild-moderate left acquired foraminal narrowing. 2. ? Diffuse posterior disc protrusion L4-L5 resulting and effacing the anterior thecal sac and moderate stenosis of the central canal. Mild right foraminal stenosis. 3. ? Right paracentral disc herniation L5-S1 resulting in narrowing of the right lateral recess and some mass effect upon the right descending S1 nerve root. A&P Assessment and plan (1) Right foot drop: Discussed treatment options with the patient that involve physical therapy, conservative management at the pain clinic for injections and lastly surgical intervention. He would like to proceed with surgical intervention discussed a right-sided decompression at L4-5 and L5-S1. Discussed with him at length that the foot drop may or may not resolve based on his fall history. Discussed with the patient that we will proceed when medically stable for decompression probably on 10/31/2022. Encouraged him to use the incentive spirometry for pulmonary toilet. Discussed this at length with Dr. Saldaña agrees above-stated plan. More than 50% of the time spent with the patient today involved coordination of care, counseling and discussion of conservative versus surgical treatment options. Total amount of time spent with the patient was 32 minutes. (2) Herniated nucleus pulposus, L4-5 right: (3) Herniated nucleus pulposus, L5-S1, right: Coding Level of Care Code Acute Code for g Fwd Diagnoses Right foot drop M21.371 Herniated nucleus pulposus, L4-5 right M51.26 Herniated nucleus pulposus, L5-S1, right M51.27 Time Spent (min) 32
[2022-10-29] MEDS: dexamethasone 10 mg/mL INJ 6 MG IVP (16:52)
[2022-10-29] MEDS: trazodone 50 mg Tablet PO (21:20)
[2022-10-30] VITALS (12 sets, daily range): BP systolic 104–124; BP diastolic 60–74; PULSE 64–98; RESP 16–20; TEMP 36.4–37; O2SAT 93–97
[2022-10-30 03:53] LABS: Hematocrit 32.7 % (42.0-52.0); Lymphocytes # 0.4 10^3/uL (0.8-4.8); Lymphocytes % 5.9 %; Mean Corpuscular HGB Conc 33.6 g/dL (30.0-36.0); Mean Corpuscular Volume 98.2 fl (80-94); Mean Platelet Volume 9.8 fL (7.4-10.4); Monocytes # 0.6 10^3/uL (0.2-0.9); Neutrophils # 5.73 10^3/uL (1.8-7.7); Neutrophils % 84.7 %; Nucleated Red Blood Cells % 0 %; Platelet Count 104 10^3/cmm (130-400); Red Blood Count 3.33 10^6/uL (4.1-5.3); Red Cell Distribution Width 13.6 % (12.1-15.1); White Blood Count 6.8 10^3/uL (4.0-10.0)
[2022-10-30] MEDS: albumin 25 G/100 ML BAG 60 G IV (04:06)
[2022-10-30 04:16] LABS: Alanine Aminotransferase 33 U/L (0-41); Albumin Level 2.8 g/dL (3.5-5.2); Alkaline Phosphatase 56 U/L (40-130); Anion Gap 10.4 (5-19); Aspartate Amino Transferase 57 U/L (0-40); Blood Urea Nitrogen 8 mg/dL (6-20); Calcium 7.6 mg/dL (8.5-10.5); Carbon Dioxide 22 mmol/L (22-29); Chloride 102 mmol/L (98-107); Globulin 2.2 g/dL (1.3-4.6); Glomerular Filtration Rate 318.7 mL/min (90-130); Glucose 104 mg/dL (65-115); Magnesium 2.2 mg/dL (1.7-2.3); Osmolality Calculated 269 mOsm/kg (285-295); Potassium 4.4 mmol/L (3.5-5.1); Sodium 130 mmol/L (136-145); Total Bilirubin 1.4 mg/dL (0.15-1.2)
[2022-10-30 04:17] LABS: Ammonia 51 umol/L (16-60)
[2022-10-30 04:21] LABS: Procalcitonin 0.04 ng/mL (0-0.5)
[2022-10-30] MEDS: paliperidone ER 6 mg Tablet PO (06:04)
[2022-10-30] MEDS: lactulose oral liq 20 gm/30 mL UDC PO ×3 (06:05→18:17)
--- NOTE | 2022-10-30 07:29 | PM.PN ---
Subjective Subjective: Resting comfortably. Reports continued right leg pain with weakness. He denies any new injuries. No family is present. Patient does appear very somnolent but asks the appropriate questions. Vitals/I&O/Wt Last Vital Signs Temp 97.6 F 10/30/22 04:00 Pulse 66 10/30/22 06:00 Resp 18 10/30/22 04:00 BP 120/74 10/30/22 04:00 Pulse Ox 95 10/30/22 04:00 O2 Del Method Nasal Cannula 10/29/22 16:03 O2 Flow Rate 3 10/29/22 20:00 10/29/22 10/30/22 10/30/22 22:59 06:59 14:59 Intake Total 560 / 610 320 / 930 Balance 560 / 610 320 / 930 Physical Exam Narrative: Patient presents alert and oriented x3 with a good general appearance somnolent mood and affect. Normal coordination normal stability. Decrease sensation light touch down the right lower extremity with continued right foot drop. Left lower extremity exam: 5/5 motor strength with negative straight leg raise. Calves are supple no medial thigh tenderness. Pulses are 1+ at the dorsalis pedis and posterior tibial region. Good capillary refill throughout normal sensation light touch both lower extremities. HENMT: COMMON NORMALS: normocephalic and atraumatic HEAD & SCALP: normocephalic and atraumatic Resp: OTHER: Labored Cardio: COMMON NORMALS: regular rate and regular rhythm RATE: regular rate RHYTHM: regular rhythm GI: COMMON NORMALS: Soft to palpation and non-tender PALPATION: Yes Soft to palpation : COMMON NORMALS: Yes no CVA tenderness BLADDER/KIDNEY EXAM: Yes no CVA tenderness Back/Pelvis: COMMON NORMALS: no CVA tenderness Psych: COMMON NORMALS: mental status grossly normal and cooperative Data 10/30/22 03:42 10/30/22 03:42 Micro: Microbiology 10/27/22 13:00 Gram Stain - Final Peritoneal Fluid Anaerobic Culture - Preliminary Body Fluid Culture - Preliminary A&P Assessment and plan (1) Herniated nucleus pulposus, L5-S1, right: Discussed at length the operative procedure with the patient. He asked the appropriate questions no family was present. Although I attempted to call his yesterday with no answer. Discussed the treatment course which could involve physical therapy second option injections at the pain clinic third option surgical intervention. He would like to proceed with operative decompression to the right at L4-5 L5-S1. Discussed at length with him that because of his current foot drop there is no guarantees that the nerve will recover but hopefully with continued physical therapy the the strength may return slowly. I discussed the risks and benefits of the procedure which include but not limited to bleeding, infection, nerve damage, increased back pain, reaction anesthesia he understands these risks and wished to proceed. He still would like to proceed with surgical intervention. Discussed this with Dr. Gallo he agrees above-stated plan. More than 50% of the time spent with the patient today involved coordination of care, counseling and discussion of conservative versus surgical treatment options. Total amount of time spent with the patient was18 minutes. (2) Herniated nucleus pulposus, L4-5 right: (3) Right foot drop: Attestations Medical Necessity Statement*: Surgical intervention 10/31/2022 Coding Level of Care Code Acute Code for [facility] Diagnoses Herniated nucleus pulposus, L5-S1, right M51.27 Herniated nucleus pulposus, L4-5 right M51.26 Right foot drop M21.371
--- NOTE | 2022-10-30 09:55 | PM.PN ---
Subjective Subjective: feels better Medications: Reviewed: Yes Vitals/I&O/Wt Last Vital Signs Temp 98.1 F 10/30/22 08:22 Pulse 77 10/30/22 08:22 Resp 18 10/30/22 08:22 BP 118/60 10/30/22 08:22 Pulse Ox 97 10/30/22 08:22 O2 Del Method Nasal Cannula 10/30/22 08:22 O2 Flow Rate 3 10/30/22 08:22 10/29/22 10/30/22 10/30/22 22:59 06:59 14:59 Intake Total 560 / 610 320 / 930 Balance 560 / 610 320 / 930 Physical Exam Narrative: Awake alert, no acute distress S1-S2 regular rate and rhythm per report Lungs clear per report No edema Data 10/30/22 03:42 10/30/22 03:42 Micro: Microbiology 10/27/22 13:00 Gram Stain - Final Peritoneal Fluid Anaerobic Culture - Preliminary Body Fluid Culture - Preliminary A&P Assessment and plan (1) Hyponatremia: Plan 1. Acute on chronic hyponatremia: Baseline sodiums in the range of high 120s to low 130s range from known history of liver cirrhosis and psych medications likely. Presented with a sodium of 107 and s/p 3% saline , , Low urine sodium, urine chloride and urine osmolality pending -Agree with holding Aldactone for now, will add lasix 20 mg PO -Na 130 currently , c/w fluid restriction , added urea tabs , DC iv albumin 2.? Hyperkalemia: Mild, improving, low K diet 3.? Metabolic acidosis: Mild, improved 4.? HistorY of liver cirrhosis with recurrent ascites requiring abdominal drain placement. Attestations Medical Necessity Statement*: per medicine Coding Level of Care Code Acute Code for g Fwd Diagnoses Hyponatremia E87.1
[2022-10-30] MEDS: citalopram 20 mg Tablet PO (10:00)
[2022-10-30] MEDS: levETIRAcetam 500 mg Tablet 750 MG PO ×2 (10:00→18:16)
[2022-10-30] MEDS: thiamine 100 mg Tablet PO (10:01)
[2022-10-30] MEDS: pantoprazole DR 40 mg Tablet PO (10:01)
[2022-10-30] MEDS: FUROsemide 20 mg Tablet PO (10:01)
[2022-10-30] MEDS: nystatin cream 30 gm 1 APPLIC TOPICAL ×2 (10:01→18:19)
[2022-10-30] MEDS: urea 15 gm Powder 30 GM PO (10:13)
[2022-10-30] MEDS: cefTRIAXone 1,000 MG in sodium chloride 0.9% (plus) 50 ML 100 MG IV (12:18)
[2022-10-30] MEDS: dexamethasone 10 mg/mL INJ 6 MG IVP (14:10)
--- NOTE | 2022-10-30 14:19 | P.PN_ITS ---
Subjective Subjective: - Patient was seen this morning, he continues to tell me that he has right foot drop, weakness, he is willing to participate in physical therapy after surgery, he is motivated, but does report generalized weakness -Had extensive discussion with patient, and his over the phone, with patient present, she tells me that he has been weak for the last 2 weeks, he has been having his right foot drop, I discussed his hyponatremia, his current alcoholism, have advised against use alcoholism, his neuropathy like a second to chronic alcoholism, his right foot drop, discussed the risks and benefits of surgery, she voiced understanding, all Qs answered, she wants him to proceed to surgery, as he has his right foot drop and a decrease in mobility she tells me he does not have a lot of help at home, she thinks that [facility] be beneficial Vitals/I&O/Wt Last Vital Signs Temp 98.2 F 10/30/22 13:37 Pulse 85 10/30/22 13:37 Resp 17 10/30/22 13:37 BP 115/69 10/30/22 13:37 Pulse Ox 94 10/30/22 13:37 O2 Del Method Room Air 10/30/22 13:37 O2 Flow Rate 3 10/30/22 11:37 10/29/22 10/30/22 10/30/22 22:59 06:59 14:59 Intake Total 560 / 610 320 / 930 530 / 530 Balance 560 / 610 320 / 930 530 / 530 Physical Exam Const: COMMON NORMALS: no acute distress ORIENTATION/CONSCIOUSNESS: Yes awake, Yes oriented to person, Yes oriented to place and Yes oriented to time Neck/C-Spine: COMMON NORMALS: no JVD Resp: COMMON NORMALS: normal respiratory effort, No retractions, No use of accessory muscles and clear to auscultation bilaterally AUSCULTATION: clear to auscultation bilaterally Cardio: COMMON NORMALS: no JVD, regular rate, regular rhythm, S1 normal heart sound present and S2 normal heart sound present RATE: regular rate RHYTHM: regular rhythm HEART SOUNDS: S1 normal heart sound present and S2 normal heart sound present GI: OTHER: Abdomen soft, distended, fluid wave present, no guarding, no rebound, rigidity, good bowel sounds Extremity: COMMON NORMALS: no pedal edema Neuro: SENSORIUM/ORIENTATION: Yes oriented to person, Yes oriented to place and Yes oriented to time Psych: COMMON NORMALS: mental status grossly normal Data 10/30/22 03:42 10/30/22 03:42 Micro: Microbiology 10/27/22 13:00 Gram Stain - Final Peritoneal Fluid Anaerobic Culture - Preliminary Body Fluid Culture - Preliminary A&P Assessment and plan (1) Acute hyponatremia: Severe hyponatremia, resolving, serum sodium 130 Hypertonic saline has been stopped Monitor serum sodium, and urea tablets, Lasix restarted Nephrology on consult currently alert and oriented, follow commands, no headache, blurry vision, nausea, vomiting (2) Lumbar disc herniation: 1. ? Large right paracentral disc herniation at L5-S1 with mass effect on exiting S1 nerve root. 2. ? Large posterior disc bulge at L4-L5 with degenerative posterior osseous ridging and in combination with ligament hypertrophy is causing severe central canal stenosis. 3. ? Degenerative changes as described above but no acute pathology detected. Lumbar MRI was ordered as there was concerns for cauda equina syndrome 1. ? Mild left annular disc bulge L3-L4 resulting in mild-moderate left acquired foraminal narrowing. 2. ? Diffuse posterior disc protrusion L4-L5 resulting and effacing the anterior thecal sac and moderate stenosis of the central canal. Mild right foraminal stenosis. 3. ? Right paracentral disc herniation L5-S1 resulting in narrowing of the right lateral recess and some mass effect upon the right descending S1 nerve root. -Continue Decadron 6 mg IV push every 24 hours -No significant clinical symptoms related to cauda equina syndrome currently, no urine incontinence, no bowel incontinence, no saddle or perineal anesthesia continues to have complaints of foot drop on the right, but will continue to monitor closely -Has chronic right-sided weakness after CVA -We will monitor closely -Dr. Gallo consulted for orthopedic surgery for consideration of surgical intervention as patient tells me that he lives at home with his , he does not have a lot of help at home, he cannot walk due to foot drop in the weakness -Patient wants to proceed with surgical intervention, n.p.o. over midnight (3) Ascites due to alcoholic cirrhosis: peritoneal drain in place Does complain of abdominal distention this morning, will drain (4) Hyperkalemia: corrected from 5.5--> 5.3, monitor for now. hold spirinolactone (5) Right foot drop: - Acute right foot drop -Likely secondary disc herniation -PT OT -Decadron as of above -As this right foot drop has been going on for the last 2 weeks - patient wants to proceed with surgical intervention, discussed with him and his the risks and benefits, they voiced understanding, all questions answered, agreed to proceed (6) History of CVA (cerebrovascular accident): - With residual right-sided weakness -Has chronic right-sided weakness, associated with his CVA he tells me I cannot discern any right-sided weakness on examination apart from his right foot drop on examination -PT OT (7) Hyponatremia: (8) Acute neuroleptic-induced akathisia: (9) Diabetic feet: (10) Alcohol dependence: (11) Protein calorie malnutrition: (12) Physical deconditioning: - Significant physical deconditioning (13) COPD (chronic obstructive pulmonary disease): (14) ALC (alcoholic liver cirrhosis): (15) Spontaneous bacterial peritonitis: - Unlikely to spontaneous bacterial peritonitis as cultures remain negative, he is afebrile -Abdominal pain, distention resolved -Ascites studies slightly pink, 187 WBCs, mostly PMN cells, glucose 107 -Blood cultures negative, Gram stain no organisms, no WBCs, anaerobic culture negative so far -Continue Rocephin for now until negative culture 72 hours -Follow cultures, blood cultures (16) Right sided weakness: - Chronically from right-sided stroke -I cannot discern any weakness except his right foot drop Plan Hyperammonemia: lactulose 20 gm po every 8 hrs, titrate to 2-3 BM per day Reports continued alcoholism Plan for today PT OT, up out of bed, plan on surgical invention tomorrow morning Attestations Medical Necessity Statement*: Patient requires hospitalization for hyponatremia, generalized weakness, now right foot drop, requiring surgical intervention and High Time for a total of 60 minutes, includes reviewing past or interval history, examining/interviewing patient, placing orders, counseling patient/family/other support, updating patient/family/other support, discussing plan of care with staff, communicating with other healthcare providers, documenting encounter and coordinating care Diagnoses Acute hyponatremia E87.1 Lumbar disc herniation M51.26 Ascites due to alcoholic cirrhosis K70.31 Hyperkalemia E87.5 Right foot drop M21.371 History of CVA (cerebrovascular accident) Z86.73 Hyponatremia E87.1 Acute neuroleptic-induced akathisia G25.71; T43.505A Diabetic feet E11.8 Alcohol dependence F10.20 Protein calorie malnutrition E46 Physical deconditioning R53.81 COPD (chronic obstructive pulmonary disease) J44.9 ALC (alcoholic liver cirrhosis) K70.30 Spontaneous bacterial peritonitis K65.2 Right sided weakness R53.1
[2022-10-30] MEDS: trazodone 50 mg Tablet PO (20:17)
[2022-10-31] VITALS (24 sets, daily range): BP systolic 94–131; BP diastolic 49–91; PULSE 59–108; RESP 16–27; TEMP 36.1–36.9; O2SAT 91–97
--- NOTE | 2022-10-31 | XR_ITS ---
WS: [id number] Lumbar spine, C-arm fluoroscopy, 10/31/2022 Clinical Data: L4-5, L5-S1 decompression Comparison: MR lumbar spine, 10/28/2022 Findings: Dr. Gallo performed a lumbar decompression XR/XR lumbar spine 1V [id number] Impression: Lumbar decompression.
[2022-10-31] MEDS: lactulose oral liq 20 gm/30 mL UDC PO ×2 (01:13→06:46)
[2022-10-31 03:31] LABS: Hematocrit 33.5 % (42.0-52.0); Hemoglobin 11.3 g/dL (11.7-16.6); Lymphocytes # 0.5 10^3/uL (0.8-4.8); Lymphocytes % 7.2 %; Mean Corpuscular HGB Conc 33.7 g/dL (30.0-36.0); Mean Corpuscular Hemoglobin 33.3 pg (28.0-34.0); Mean Corpuscular Volume 98.8 fl (80-94); Mean Platelet Volume 9.4 fL (7.4-10.4); Monocytes # 0.7 10^3/uL (0.2-0.9); Monocytes % 10.1 %; Neutrophils # 5.35 10^3/uL (1.8-7.7); Neutrophils % 82.2 %; Nucleated Red Blood Cells % 0 %; Platelet Count 102 10^3/cmm (130-400); Red Blood Count 3.39 10^6/uL (4.1-5.3); Red Cell Distribution Width 13.7 % (12.1-15.1); White Blood Count 6.5 10^3/uL (4.0-10.0)
[2022-10-31 03:56] LABS: Alanine Aminotransferase 30 U/L (0-41); Albumin Level 2.7 g/dL (3.5-5.2); Alkaline Phosphatase 59 U/L (40-130); Anion Gap 8.8 (5-19); Aspartate Amino Transferase 44 U/L (0-40); Blood Urea Nitrogen 11 mg/dL (6-20); Calcium 7.6 mg/dL (8.5-10.5); Carbon Dioxide 24 mmol/L (22-29); Chloride 103 mmol/L (98-107); Globulin 2.1 g/dL (1.3-4.6); Glomerular Filtration Rate 318.7 mL/min (90-130); Glucose 124 mg/dL (65-115); Osmolality Calculated 275 mOsm/kg (285-295); Potassium 3.8 mmol/L (3.5-5.1); Sodium 132 mmol/L (136-145); Total Bilirubin 1.1 mg/dL (0.15-1.2); Total Protein 4.8 g/dL (6.6-8.7)
[2022-10-31] MEDS: paliperidone ER 6 mg Tablet PO (06:46)
[2022-10-31] MEDS: ceFAZolin 2,000 MG in sodium chloride 0.9% (plus) 50 ML 100 MG IV ×2 (08:31→12:15)
[2022-10-31] MEDS: thiamine 100 mg Tablet PO (08:32)
[2022-10-31] MEDS: levETIRAcetam 500 mg Tablet 750 MG PO (08:32)
[2022-10-31] MEDS: citalopram 20 mg Tablet PO (08:33)
[2022-10-31] MEDS: pantoprazole DR 40 mg Tablet PO (08:34)
[2022-10-31] MEDS: FUROsemide 20 mg Tablet PO (08:34)
--- NOTE | 2022-10-31 09:03 | PM.PN ---
Subjective Subjective: no new complaints Medications: Reviewed: Yes Vitals/I&O/Wt Last Vital Signs Temp 98.2 F 10/31/22 03:53 Pulse 64 10/31/22 06:00 Resp 16 10/31/22 03:53 BP 124/72 10/31/22 03:53 Pulse Ox 95 10/31/22 03:53 O2 Del Method Nasal Cannula 10/31/22 03:53 O2 Flow Rate 3 10/30/22 20:00 10/30/22 10/31/22 10/31/22 22:59 06:59 14:59 Intake Total 714 / 1244 240 / 1484 Output Total 0 / 0 2100 / 2100 Balance 714 / 1244 -1860 / -616 Physical Exam Narrative: Awake alert, no acute distress S1-S2 regular rate and rhythm per report Lungs clear per report No edema Data 10/31/22 03:02 10/31/22 03:02 Micro: Microbiology 10/27/22 13:00 Gram Stain - Final Peritoneal Fluid Anaerobic Culture - Preliminary Body Fluid Culture - Preliminary A&P Assessment and plan (1) Hyponatremia: Plan 1. Acute on chronic hyponatremia: Baseline sodiums in the range of high 120s to low 130s range from known history of liver cirrhosis and psych medications likely. Presented with a sodium of 107 and s/p 3% saline , , Low urine sodium, urine chloride and urine osmolality pending -Agree with holding Aldactone for now, will add lasix 20 mg PO -Na 132 currently , c/w fluid restriction , added urea tabs , DC iv albumin 2.? Hyperkalemia: Mild, improving, low K diet 3.? Metabolic acidosis: Mild, improved 4.? HistorY of liver cirrhosis with recurrent ascites requiring abdominal drain placement. Attestations Medical Necessity Statement*: per medicine Coding Level of Care Code Acute Code for Chg Fwd Diagnoses Hyponatremia E87.1
[2022-10-31] MEDS: nystatin cream 30 gm 1 APPLIC TOPICAL (09:37)
--- NOTE | 2022-10-31 10:57 | P.ANESASSM_ITS ---
Pre-Anesthetic Assessment Height/Weight: Height 1.73 m Weight 78.471 kg Temp Pulse Resp BP Pulse Ox O2 Del Method O2 Flow Rate 97.5 F L 67 16 110/72 97 Nasal Cannula 3 10/31/22 08:00 10/31/22 08:00 10/31/22 08:00 10/31/22 08:00 10/31/22 08:00 10/31/22 08:00 10/31/22 08:00 Preop Diagnosis: Right foot drop, herniated nucleus pulposus to the right at L4- 5 L5-S1 Operation Date: 10/31/22 14:15 Proposed Procedures p Lumbar Spine Decompression L4/5, L5/S1(Not Applicable) - Hugh Gallo, DO Familial anesthetic complications: none Was Beta Joanne taken within 24 hours: N/A Was Clonidine taken within 24 hours: N/A Last intake: Intake Last Liquid Date 10/30/22 Last Liquid Time 17:00 Last Solid Date 10/30/22 Last Solid Time 17:00 Social Alcohol and Tobacco Exam oriented x 3 and regular rate & rhythm rhonchi, mildly sedate Airway Submandibular: within normal limits Cervical ROM: within normal limits Mallampati: Class II Dentition: false Pulmonary Chronic Obstructive Pulmonary Disease CV/HEM Anemia (chronic) thrombocytopenia Hepatic Cirrhosis (ascites) Musc/skel Lower Back Pain and Osteoarthritis/DJD Neuropsych Anxiety, Depression and Neuropathy Schizoaffective Anesthetic Plan ASA status: 4 Anesthesia: General Medications/Allergies Home Medications Medication Instructions Recorded Confirmed Last Taken Type levetiracetam 750 mg tablet 750 mg PO BID 30 days #60 tabs 06/12/22 10/27/22 09/28/22 Rx citalopram 20 mg tablet (Celexa) 20 mg PO DAILY #30 tabs 08/10/22 10/27/22 09/28/22 Rx paliperidone 6 mg tablet,extended 6 mg PO QAM #14 tabs 08/10/22 10/27/22 09/28/22 Rx release 24 hr ([facility]) paliperidone palmitate 234 mg/1.5 234 mg (1.5 mL) IM Q30D #1.5 mL 08/10/22 10/27/22 09/28/22 Rx mL intramuscular syringe ([facility] Sustenna) furosemide 20 mg tablet (Lasix) 20 mg PO DAILY #90 tabs 10/12/22 10/27/22 Unknown Rx lactulose 20 gram/30 mL oral 20 g (30 mL) PO DAILY #2,880 mL 10/12/22 10/27/22 Unknown Rx solution spironolactone 100 mg tablet 100 mg PO DAILY #60 tabs 10/12/22 10/27/22 09/28/22 Rx thiamine HCl (vitamin B1) 100 mg 100 mg PO DAILY #90 tabs 10/12/22 10/27/22 Unknown Rx tablet gabapentin 400 mg capsule 400 mg PO TID 10/13/22 10/27/22 Unknown History metformin 500 mg tablet,extended 500 mg PO BID 10/13/22 10/27/22 Unknown History release 24 hr trazodone 50 mg tablet 50 mg PO BEDTIME 10/13/22 10/27/22 Unknown History Allergies Allergy/AdvReac Type Severity Reaction Status Date / Time clozapine [From Clozaril] AdvReac Severe Lowered Verified 10/26/22 23:45 his WBC he says divalproex sodium AdvReac Severe swelling Verified 10/26/22 23:45 [From Depakote] haloperidol [From Haldol] AdvReac Severe swelling Verified 10/26/22 23:45 nitroglycerin AdvReac Severe Stopped Verified 10/26/22 23:45 heart Bee stings Allergy Severe Swelling & Uncoded 10/26/22 23:45 breathing problems, Anaphylactic shock Current Medications Generic Name Dose Route Start Last Admin Trade Name Freq PRN Reason Stop Dose Admin Citalopram Hydrobromide 20 mg 10/27/22 09:00 10/31/22 08:33 Citalopram 20 Mg Tablet PO 20 mg DAILY SAMANTA Administration Dexamethasone 6 mg 10/28/22 15:00 10/30/22 14:10 Dexamethasone 10 Mg/Ml Inj IVP 6 mg Q24H SAMANTA Administration Furosemide 20 mg 10/30/22 08:00 10/31/22 08:34 Furosemide 20 Mg Tablet PO 20 mg DAILY@0800 SAMANTA Administration Ceftriaxone Sodium 1,000 mg/ 50 mls @ 100 mls/hr 10/27/22 13:00 10/30/22 13:10 Sodium Chloride IV Infused Q24H SAMANTA Infusion Protocol Lactulose 20 gm 10/27/22 06:45 10/31/22 06:46 Lactulose Oral Liq 20 Gm/30 Ml Udc PO 20 gm Q6H SAMANTA Administration Levetiracetam 750 mg 10/27/22 09:00 10/31/22 08:32 Levetiracetam 500 Mg Tablet PO 750 mg BID SAMANTA Administration Nystatin 1 applic 10/28/22 18:00 10/31/22 09:37 Nystatin Cream 30 Gm TOPICAL 1 applic BID SAMANTA Administration Paliperidone 6 mg 10/28/22 06:00 10/31/22 06:46 Paliperidone Er 6 Mg Tablet PO 6 mg QAM SAMANTA Administration Pantoprazole Sodium 40 mg 10/27/22 09:00 10/31/22 08:[address] 40 Mg Tablet PO 40 mg DAILY SAMANTA Administration Thiamine Mononitrate 100 mg 10/27/22 09:00 10/31/22 08:32 Thiamine 100 Mg Tablet PO 100 mg DAILY SAMANTA Administration Trazodone HCl 50 mg 10/27/22 21:00 10/30/22 20:17 Trazodone 50 Mg Tablet PO 50 mg BEDTIME SAMANTA Administration Urea 30 gm 10/29/22 09:00 10/31/22 09:56 Urea 15 Gm Powder PO Not Given DAILY SAMANTA PFSH Anesthesia Medical History (Updated 10/29/22 @ 14:40 by Fitz Linder PA-C) Abdominal ascites Acne rosacea ALC (alcoholic liver cirrhosis) Alcohol dependence Bipolar disorder Cirrhosis of liver Controlled diabetes mellitus with hyperglycemia COPD (chronic obstructive pulmonary disease) DM neuropathy, painful Essential (primary) hypertension History of alcohol abuse daily use of hard liquor History of coronary artery disease History of CVA (cerebrovascular accident) 2009 Right side weakness due to a bleed History of memory loss History of schizophrenia Hyperammonemia Hypoxia Major depression, recurrent, chronic Mixed hyperlipidemia Nicotine dependence, cigarettes, uncomplicated Nicotine dependence, unspecified, uncomplicated Psoriasis Psychiatric care Right foot drop Schizoaffective disorder Schizophrenia Seizure disorder Suicidal ideation Traumatic brain injury UTI (urinary tract infection) Surgical History History of cardiac catheterization ~2014 done in [place], reports they discussed possible stent but he declined History of colonoscopy with polypectomy 2016 History of esophagogastroduodenoscopy (EGD) History of eye surgery Family History Other Dementia Diabetes Hypertension Lung disease Psychiatric illness Stroke Denies family history of Chronic kidney disease (CKD) Anesthesia complication Bleeding disorder Cancer Social History Smoking and tobacco status: current every day smoker cigarettes Packs smoked per day: 2.5 Second hand smoke exposure: Yes Alcohol intake: current Alcohol intake frequency: 3 or more drinks per day Alcohol type: hard liquor Substance/Drug Use: never Adopted: No Caregiver/support person: Yes Lives independently: No Household members: friend(s) and caregiver Housing: Manufactured/Mobile home Marital status: Number of children: 8 service: No Current occupational status: disabled Pets and animals: Yes Do you think of yourself as: Straight/Heterosexual Current gender identity: Male Data Anesthesia 10/31/22 03:02 10/31/22 03:02 Short CBC 10/30/22 10/31/22 Range/Units 03:42 03:02 WBC 6.8 6.5 (4.0-10.0) 10^3/uL Hgb 11.0 L 11.3 L (11.7-16.6) g/dL Hct 32.7 L 33.5 L (42.0-52.0) % MCV 98.2 H 98.8 H (80-94) fl Plt Count 104 L 102 L (130-400) 10^3/cmm Neut % (Auto) 84.7 82.2 % Neut # (Auto) 5.73 5.35 (1.8-7.7) 10^3/uL BMP 10/30/22 10/31/22 03:42 03:02 Sodium 130 L 132 L Potassium 4.4 3.8 Chloride 102 103 Carbon Dioxide 22 24 BUN 8 11 Creatinine 0.3 L 0.3 L Glucose 104 124 H Calcium 7.6 L 7.6 L Liver Function 10/30/22 10/31/22 Range/Units 03:42 03:02 Total Bilirubin 1.4 H 1.1 (0.15-1.2) mg/dL AST 57 H 44 H (0-40) U/L ALT 33 30 (0-41) U/L Alkaline Phosphatase 56 59 (40-130) U/L Albumin 2.8 L 2.7 L (3.5-5.2) g/dL Coags 10/30/22 03:42 C-Reactive Protein 3.0 Microbiology 05/20/23 13:00 Gram Stain - Final Peritoneal Fluid Anaerobic Culture - Preliminary Body Fluid Culture - Final Staphylococcus haemolyticus Cardiac Studies: No Data to Display
[2022-10-31] MEDS: albuterol 2.5 mg/3 mL Neb INHALATION (11:12)
--- NOTE | 2022-10-31 11:24 | P.HPUD_ITS ---
Surgery/Procedure H&P Update DATE OF PROCEDURE: October 31, 2022 DATE H&P PERFORMED: 10/29/22 H&P UPDATE INFORMATION: I have reviewed H&P completed within last 30 days, I have examined patient prior to procedure and No changes to prior documentation PREOP DIAGNOSIS: Right foot drop, herniated nucleus pulposus to the right at L4- 5 L5-S1 PLANNED PROCEDURE: Operation Date: 10/31/22 14:15 Proposed Procedures p Lumbar Spine Decompression L4/5, L5/S1(Not Applicable) - Hugh Gallo DO
[2022-10-31] MEDS: sodium chloride 0.9% 1,000 ML 30 ML IV (11:27)
[2022-10-31] MEDS: lidocaine-epi 1% 20 mL INJ 10 ML INJECTION (12:18)
[2022-10-31] MEDS: vancomycin 1,000 MG SDV 1000 MG XX (13:00)
--- NOTE | 2022-10-31 13:11 | PM.OP ---
Operative Report Date of procedure: October 31, 2022 Pre-op diagnosis: Preop Diagnosis Right foot drop, herniated nucleus pulposus to the right at L4-5 L5-S1 Post-op diagnosis: same Procedure done: 1. L4/5 laminectomy and partial facetectomy 2. L5/S1 laminectomy with partial facetectomy Surgeon: Hugh Gallo Examiner Rating Clerk: Fitz Linder Examiner Rating Clerk: The surgical scrub technician, Fitz Linder, PAC was needed for his expertise under the microscope. He was important and necessary throughout the procedure to complete in a safe and timely manner. He assisted with patient positioning prepping and draping tissue retraction suctioning of the operative field protection of the dural sac and tissue closure Estimated blood loss (mL): 20 Procedure: 1. L4/5 laminectomy and partial facetectomy 2. L5/S1 laminectomy with partial facetectomy Patient is brought to the operative suite. After undergoing anesthesia they are placed in the prone position. All areas of impingement are well padded. Patient is then prepped and draped in the normal sterile fashion. A skin incision is made over the L4/5 level. This is confirmed under c-arm guidance. A series of dilators are passed and the tubular retractor is docked on the L4 lamina. A bovie is used to clear the soft tissue off the lamina and the L 4/5 facet joint. A high speed waqas is then used to perform the laminectomy and take down the medial aspect of the L 4/5 facet joint. A kerrison rongeure was then used to take down the remaining lamina and smooth the edge of the laminectomy up to the point where the ligamentum flavum attaches. Attention was then brought to the medial aspect of the facet joint. The remaining medial aspect of the superior and inferior aspect of the facet joint were taken down with the kerrison from the pedicle of L4 to L 5. The facet joint had significant hypertrophy. Attention was then brought to the Ligamentum Flavum. The ligament was taken down from the lamina of L4 to L5 and out medially to the remaining facet joint. The ligament was thick. The dura was then exposed. The dura was in good repair. The L4 nerve was then traced with a curette out the L4/5 foramen and found to be adequately decompressed. The L5 nerve was traced with a curette around the L5 pedicle. The lateral recess was opened with a kerrison helping to further decompress the L5 nerve. Wound is then irrigated copiously with saline and surgiflo is used to stop any bleeding. The tubular retractor is removed and the A skin incision is made over the L5/S1 level. This is confirmed under c-arm guidance. A series of dilators are passed and the tubular retractor is docked on the L5 lamina. A bovie is used to clear the soft tissue off the lamina and the L 5/S1 facet joint. A high speed waqas is then used to perform the laminectomy and take down the medial aspect of the L 5/S1 facet joint. A kerrison rongeure was then used to take down the remaining lamina and smooth the edge of the laminectomy up to the point where the ligamentum flavum attaches. Attention was then brought to the medial aspect of the facet joint. The remaining medial aspect of the superior and inferior aspect of the facet joint were taken down with the kerrison from the pedicle of L5 to S1. The facet joint had significant hypertrophy. Attention was then brought to the Ligamentum Flavum. The ligament was taken down from the lamina of L5 to S1 and out medially to the remaining facet joint. The ligament was thick. The dura was then exposed. The dura was in good repair. The L5 nerve was then traced with a curette out the L5/S1 foramen and found to be adequately decompressed. The S1 nerve was traced with a curette around the S1 pedicle. The lateral recess was opened with a kerrison helping to further decompress the S1 nerve. Wound is then irrigated copiously with saline and surgiflo is used to stop any bleeding. The tubular retractor is removed and the wound is closed with vicryl and monocryl suture. Glue is then used to protect the wound. A sterile dressing is then placed. Patient was then placed in the supine position and transferred to the PACU in stable condition.
[2022-10-31] MEDS: ondansetron 2 mg/ML SDV 2 mL 4 MG IVP (13:29)
[2022-10-31] MEDS: fentaNYL 50 mcg/mL INJ 2mL IVP (13:43)
--- NOTE | 2022-10-31 13:58 | PM.PN ---
Subjective Subjective: Patient was seen this morning, he continues to complain that his right foot feels like it is , he feels better today his abdomen is less distended, no cough, no fevers, he is ready to have surgery he tells me Vitals/I&O/Wt Last Vital Signs Temp 97.0 F L 10/31/22 13:50 Pulse 98 10/31/22 13:55 Resp 19 H 10/31/22 13:55 BP 110/77 10/31/22 13:55 Pulse Ox 92 10/31/22 13:55 O2 Del Method Nasal Cannula 10/31/22 13:55 O2 Flow Rate 3 10/31/22 13:55 10/30/22 10/31/22 10/31/22 22:59 06:59 14:59 Intake Total 714 / 1244 240 / 1484 550 / 550 Output Total 0 / 0 2100 / 2100 75 / 75 Balance 714 / 1244 -1860 / -616 475 / 475 Physical Exam Const: COMMON NORMALS: no acute distress and patient oriented x3 Resp: COMMON NORMALS: normal respiratory effort, No retractions, No use of accessory muscles and clear to auscultation bilaterally AUSCULTATION: clear to auscultation bilaterally Cardio: COMMON NORMALS: regular rate, regular rhythm, S1 normal heart sound present and S2 normal heart sound present RATE: regular rate RHYTHM: regular rhythm HEART SOUNDS: S1 normal heart sound present and S2 normal heart sound present GI: COMMON NORMALS: Normal to inspection, nondistended, normoactive bowel sounds present and non-tender OTHER: drain in place Extremity: COMMON NORMALS: no pedal edema Neuro: COMMON NORMALS: patient oriented x3 Psych: COMMON NORMALS: mental status grossly normal Data 10/31/22 03:02 10/31/22 03:02 Micro: Microbiology 10/27/22 13:00 Gram Stain - Final Peritoneal Fluid Anaerobic Culture - Preliminary Body Fluid Culture - Final Staphylococcus haemolyticus A&P Assessment and plan (1) Acute hyponatremia: Severe hyponatremia, resolving, serum sodium 132, resolved Hypertonic saline has been stopped Monitor serum sodium, and urea tablets, Lasix restarted Nephrology on consult currently alert and oriented, follow commands, no headache, blurry vision, nausea, vomiting (2) Lumbar disc herniation: 1. ? Large right paracentral disc herniation at L5-S1 with mass effect on exiting S1 nerve root. 2. ? Large posterior disc bulge at L4-L5 with degenerative posterior osseous ridging and in combination with ligament hypertrophy is causing severe central canal stenosis. 3. ? Degenerative changes as described above but no acute pathology detected. Lumbar MRI was ordered as there was concerns for cauda equina syndrome 1. ? Mild left annular disc bulge L3-L4 resulting in mild-moderate left acquired foraminal narrowing. 2. ? Diffuse posterior disc protrusion L4-L5 resulting and effacing the anterior thecal sac and moderate stenosis of the central canal. Mild right foraminal stenosis. 3. ? Right paracentral disc herniation L5-S1 resulting in narrowing of the right lateral recess and some mass effect upon the right descending S1 nerve root. -Continue Decadron 6 mg IV push every 24 hours -No significant clinical symptoms related to cauda equina syndrome currently, no urine incontinence, no bowel incontinence, no saddle or perineal anesthesia continues to have complaints of foot drop on the right, but will continue to monitor closely -Has chronic right-sided weakness after CVA -We will monitor closely -Dr. Gallo consulted for orthopedic surgery for consideration of surgical intervention as patient tells me that he lives at home with his , he does not have a lot of help at home, he cannot walk due to foot drop in the weakness -Patient wants to proceed with surgical intervention, going for surgical invention today, will need physical therapy thereafter, potentially placement to skilled rehab (3) Ascites due to alcoholic cirrhosis: peritoneal drain in place Does complain of abdominal distention this morning, will drain (4) Hyperkalemia: corrected from 5.5--> 5.3, monitor for now. hold spirinolactone (5) Right foot drop: - Acute right foot drop -Likely secondary disc herniation -PT OT -Decadron as of above -As this right foot drop has been going on for the last 2 weeks - patient wants to proceed with surgical intervention, discussed with him and his the risks and benefits, they voiced understanding, all questions answered, agreed to proceed -Proceeding to surgery today (6) History of CVA (cerebrovascular accident): - With residual right-sided weakness -Has chronic right-sided weakness, associated with his CVA he tells me I cannot discern any right-sided weakness on examination apart from his right foot drop on examination -PT OT (7) Hyponatremia: (8) Acute neuroleptic-induced akathisia: (9) Diabetic feet: (10) Alcohol dependence: (11) Protein calorie malnutrition: (12) Physical deconditioning: - Significant physical deconditioning (13) COPD (chronic obstructive pulmonary disease): (14) ALC (alcoholic liver cirrhosis): (15) Spontaneous bacterial peritonitis: - Unlikely to spontaneous bacterial peritonitis as cultures remain negative, he is afebrile -Abdominal pain, distention resolved -Ascites studies slightly pink, 187 WBCs, mostly PMN cells, glucose 107 -Blood cultures negative, Gram stain no organisms, no WBCs, anaerobic culture negative so far -Continue Rocephin for now until negative culture 72 hours -Follow cultures, blood cultures (16) Right sided weakness: - Chronically from right-sided stroke -I cannot discern any weakness except his right foot drop Plan Hyperammonemia: lactulose 20 gm po every 8 hrs, titrate to 2-3 BM per day Reports continued alcoholism Plan for today we will get surgery today, PT OT, Attestations Medical Necessity Statement*: Patient requires hospitalization for right foot drop, proceeding with surgery Diagnoses Acute hyponatremia E87.1 Lumbar disc herniation M51.26 Ascites due to alcoholic cirrhosis K70.31 Hyperkalemia E87.5 Right foot drop M21.371 History of CVA (cerebrovascular accident) Z86.73 Hyponatremia E87.1 Acute neuroleptic-induced akathisia G25.71; T43.505A Diabetic feet E11.8 Alcohol dependence F10.20 Protein calorie malnutrition E46 Physical deconditioning R53.81 COPD (chronic obstructive pulmonary disease) J44.9 ALC (alcoholic liver cirrhosis) K70.30 Spontaneous bacterial peritonitis K65.2 Right sided weakness R53.1
--- NOTE | 2022-10-31 14:18 | ANE.PACU2 ---
Inpatient post-anesthesia follow up: Airway intact: Yes Vital signs: Temperature 97.0 F Pulse Rate 98 Respiratory Rate 20 Blood Pressure 95/76 Pulse Oximetry 92 Oxygen Delivery Me thod Nasal Cannula Oxygen Flow Rate 3 Fraction of Inspir ed Oxygen Hydration adequate: Yes Nausea and vomiting: No Pain level: 3 Mental status: Baseline
[2022-10-31] MEDS: cefTRIAXone 1,000 MG in sodium chloride 0.9% (plus) 50 ML 100 MG IV (15:32)
[2022-10-31] MEDS: HYDROcodone-acetaminophen 5-325 mg Tablet PO (18:38)
[2022-10-31] MEDS: sodium chloride 0.9% 1,000 ML 100 ML IV (23:20)
[2022-11-01 01:31] VITALS: BP 110/59; PULSE 60; RESP 17; TEMP 36.7; O2SAT 96
[2022-11-01] MEDS: HYDROcodone-acetaminophen 5-325 mg Tablet PO (01:52)
[2022-11-01 03:54] LABS: Basophils % 0.1 %; Hematocrit 34.4 % (42.0-52.0); Hemoglobin 11.5 g/dL (11.7-16.6); Lymphocytes # 0.4 10^3/uL (0.8-4.8); Lymphocytes % 5.4 %; Mean Corpuscular HGB Conc 33.4 g/dL (30.0-36.0); Mean Corpuscular Hemoglobin 33.5 pg (28.0-34.0); Mean Corpuscular Volume 100.3 fl (80-94); Mean Platelet Volume 9.6 fL (7.4-10.4); Monocytes # 0.8 10^3/uL (0.2-0.9); Monocytes % 9.7 %; Neutrophils # 6.58 10^3/uL (1.8-7.7); Neutrophils % 84.3 %; Nucleated Red Blood Cells % 0 %; Platelet Count 81 10^3/cmm (130-400); Red Blood Count 3.43 10^6/uL (4.1-5.3); Red Cell Distribution Width 13.7 % (12.1-15.1); White Blood Count 7.8 10^3/uL (4.0-10.0)
[2022-11-01 04:20] LABS: Alanine Aminotransferase 26 U/L (0-41); Albumin Level 2.5 g/dL (3.5-5.2); Alkaline Phosphatase 48 U/L (40-130); Anion Gap 8.6 (5-19); Aspartate Amino Transferase 34 U/L (0-40); Blood Urea Nitrogen 10 mg/dL (6-20); Calcium 7.5 mg/dL (8.5-10.5); Carbon Dioxide 26 mmol/L (22-29); Chloride 104 mmol/L (98-107); Globulin 2.1 g/dL (1.3-4.6); Glomerular Filtration Rate 318.7 mL/min (90-130); Glucose 110 mg/dL (65-115); Magnesium 2.1 mg/dL (1.7-2.3); Osmolality Calculated 278 mOsm/kg (285-295); Potassium 4.6 mmol/L (3.5-5.1); Sodium 134 mmol/L (136-145); Total Bilirubin 1.2 mg/dL (0.15-1.2); Total Protein 4.6 g/dL (6.6-8.7)
[2022-11-01 05:54] VITALS: PULSE 63
--- NOTE | 2022-11-01 06:06 | P.PN_ITS ---
Subjective Subjective: reports back pain and right foot discomfort s/p laminectomy I spoke with on telephone. She reports Reinaldo will not take medications at home Vitals/I&O/Wt Last Vital Signs Temp 98.0 F 11/01/22 01:31 Pulse 63 11/01/22 05:54 Resp 17 11/01/22 01:31 BP 110/59 11/01/22 01:31 Pulse Ox 96 11/01/22 01:31 O2 Del Method Nasal Cannula 11/01/22 01:31 O2 Flow Rate 3 10/31/22 20:00 10/31/22 10/31/22 11/01/22 14:59 22:59 06:59 Intake Total 600 / 600 50 / 650 Output Total 75 / 75 Balance 525 / 525 50 / 575 Data 11/01/22 03:45 11/01/22 03:45 Micro: Microbiology 10/27/22 13:00 Gram Stain - Final Peritoneal Fluid Anaerobic Culture - Preliminary Body Fluid Culture - Final Staphylococcus haemolyticus Other data: seen via telemedicine with assistance of RN at bedside A&P Assessment and plan (1) Hyponatremia: Plan 1. Hyponatremia. Serum sodium near normal today. Discussed importance of fluid restriction, daily weights, compliance with medications. Will sign off. Please call if needed Attestations Medical Necessity Statement*: per primary service Time Spent in Patient Care: less than 15 minutes Coding Level of Care Code Acute Code for [facility] Fwd Diagnoses Hyponatremia E87.1
[2022-11-01 07:47] VITALS: PULSE 69; O2SAT 96
[2022-11-01] MEDS: sodium chloride 0.9% 1,000 ML 100 ML IV (08:17)
[2022-11-01 10:14] VITALS: BP 96/53; PULSE 60; RESP 18; TEMP 36.9; O2SAT 96
--- NOTE | 2022-11-01 10:54 | PM.PN ---
Subjective Subjective: POD 1 Pt resting Comfortably. Vitals/I&O/Wt Last Vital Signs Temp 98.4 F 11/01/22 10:14 Pulse 60 11/01/22 10:14 Resp 18 11/01/22 10:14 BP 96/53 11/01/22 10:14 Pulse Ox 96 11/01/22 10:14 O2 Del Method Nasal Cannula 11/01/22 10:14 O2 Flow Rate 3 11/01/22 10:14 10/31/22 11/01/22 11/01/22 22:59 06:59 14:59 Intake Total 50 / 650 1108.333 / 1108.333 Output Total 2775 / 2775 Balance 50 / 575 -1666.667 / -1666.667 Physical Exam Narrative: Patient presents alert and oriented x3 with a good general appearance normal mood and affect. Normal coordination normal stability. Mild tenderness around the incisional site with the incision appear to be healing nicely. No signs of erythema or drainage. No signs of infection. Patient denies any fevers or chills. Continued Right Foot drop. 4/5 motor strength left lower extremity with negative straight leg raise bilaterally. Calves are supple no medial thigh tenderness. Pulses are 2+ at the dorsalis pedis and posterior tibial region. Good capillary refill throughout normal sensation light touch both lower extremities. Data 11/01/22 03:45 11/01/22 03:45 Micro: Microbiology 10/27/22 13:00 Gram Stain - Final Peritoneal Fluid Anaerobic Culture - Preliminary Body Fluid Culture - Final Staphylococcus haemolyticus A&P Assessment and plan (1) Status post lumbar laminectomy: Physical therapy to work with mobilization. Fit with AFO to the right lower extremity. Have patient follow-up in 1 week's time for wound check. Okay from an orthopedic standpoint for discharge home once stabilized medically. (2) Right foot drop: Attestations Medical Necessity Statement*: Defer to medical team Coding Level of Care Code Acute Code for [facility] Fwd Diagnoses Status post lumbar laminectomy Z98.890 Right foot drop M21.371
--- NOTE | 2022-11-01 10:58 | P.DS_ITS ---
Discharge Providers Date of Admission: 10/27/22 04:41 Date of Discharge: November 01, 2022 Attending Provider at Admission: Thi Snyder MD Attending Provider at Discharge: Owen Pierce MD Primary Care Provider: YENI Perez Diagnoses at Discharge Discharge Diagnosis (1) Status post lumbar laminectomy: Status: Acute (2) Right foot drop: Status: Acute Reason for Visit Reason for Visit: LEG NUMBNESS Hospital Course Hospital Course collins Flores is a 47 year old male with a past medical history of schizophrenia, major depressive disorder, noninsulin-dependent type 2 diabetes mellitus, COPD, alcohol dependence, alcoholic liver cirrhosis,peritoneal drain placed due to recurrent ascites, which is still in place. Recent admission here 10/13 to 10/16 for SI, excessive leaking around the drain site. He was discharged on 10/16 in stable condition. He returns today with c/o increasing generalized weakness, recurrent falls, right lower extremity numbness and weakness.? He currently describes his right lower extremity as weight .? He is able to perform some activities with gravity, however unable to lift the right lower extremity of the bed. He is noted to have several lab abnormalities today.? Sodium is with severe hyponatremia at 107.? He is started on hypertonic saline which is currently running at 60 cc an hour at the time of my assessment.? Sodium has corrected from 107-110 with the hypertonic saline. His ammonia is elevated at 91.? Uncertain if he has been taking all his medications at home.? He has been drinking vodka and tea all day.? Currently his alcohol level is a 32.Drainage from periotneal cathetr has improved with time. Patient was admitted to [facility] for acute hyponatremia, requiring ICU admission, hypertonic saline, nephrology consultation, patient's serum sodium overall improved, taken off hypertonic saline moved to general medical floors, serum sodium on discharge 134. Resume home Lasix 20 mg once daily with spironolactone 50 mg once daily During his hospitalization, patient had right foot drop with lumbar disc herniation, received Decadron, orthopedics spine surgery was consulted, underwent surgical intervention on 10/31/2022, received inpatient physical therapy, patient was adamant about discharge home, discharged home Initially there was concerns for spontaneous bacterial peritonitis during his hospitalization, cultures so far unremarkable, WBCs 107 fairly unlikely. Patient has a history of recurrent ascites, For hyperammonemia, received lactulose For his history of alcoholism, advised to abstain from alcohol Physical Exam Const: COMMON NORMALS: no acute distress and patient oriented x3 Resp: COMMON NORMALS: normal respiratory effort, No retractions, No use of accessory muscles and clear to auscultation bilaterally AUSCULTATION: clear to auscultation bilaterally Cardio: COMMON NORMALS: regular rate, regular rhythm, S1 normal heart sound present and S2 normal heart sound present RATE: regular rate RHYTHM: regular rhythm HEART SOUNDS: S1 normal heart sound present and S2 normal heart sound present GI: COMMON NORMALS: Normal to inspection, nondistended, normoactive bowel sounds present and non-tender Extremity: COMMON NORMALS: no pedal edema Neuro: COMMON NORMALS: patient oriented x3 Psych: COMMON NORMALS: mental status grossly normal Discharge Data Studies Completed and Pending Completed Studies During Hospitalization Category Date Time Status CT head wo con* [id number] Stat Cat Scan 10/27/22 00:[address] lumbar spine wo con* [id number] Stat Cat Scan 10/27/22 00:41 Completed CXRP [XR chest 1V portable [id number]] Stat Exams 10/28/22 18:50 Completed CXRP [XR chest 1V portable [id number]] Stat Exams 10/28/22 21:16 Completed XR chest 1V portable [id number] Routine Exams 10/27/22 12:56 Completed XR lumbar spine 1V [id number] Routine Exams 10/31/22 Completed MR lumbar spine wo con* [id number] Stat MRI 10/28/22 09:52 Completed Pending at discharge Category Date Time Status Anaerobic Culture Routine Lab 10/27/22 13:00 Results Blood Culture Stat Lab 10/27/22 14:07 Results Body Fluid Culture & GS Routine Lab 10/27/22 13:00 Results Complete Blood Count w/Auto AM LABS Lab 11/02/22 04:00 Ordered Complete Blood Count w/Auto AM LABS Lab 11/03/22 04:00 Ordered Comprehensive Metabolic Panel AM LABS Lab 11/02/22 04:00 Ordered Comprehensive Metabolic Panel AM LABS Lab 11/03/22 04:00 Ordered Magnesium AM LABS Lab 11/02/22 04:00 Ordered Magnesium AM LABS Lab 11/03/22 04:00 Ordered Osmolality Urine Stat Lab 10/28/22 12:14 Uncollected Sputum Culture and Gram Stain Stat Lab 10/27/22 12:59 Uncollected Radiology Impressions Head CT 10/27/22 00:41 IMPRESSION: No acute intracranial findings. Lumbar Spine CT 10/27/22 00:41 IMPRESSION: 1. Large right paracentral disc herniation at L5-S1 with mass effect on exiting S1 nerve root. 2. Large posterior disc bulge at L4-L5 with degenerative posterior osseous ridging and in combination with ligament hypertrophy is causing severe central canal stenosis. 3. Degenerative changes as described above but no acute pathology detected. Lumbar Spine MRI 10/28/22 09:52 IMPRESSION: 1. Mild left annular disc bulge L3-L4 resulting in mild-moderate left acquired foraminal narrowing. 2. Diffuse posterior disc protrusion L4-L5 resulting and effacing the anterior thecal sac and moderate stenosis of the central canal. Mild right foraminal stenosis. 3. Right paracentral disc herniation L5-S1 resulting in narrowing of the right lateral recess and some mass effect upon the right descending S1 nerve root. Chest X-Ray 10/28/22 21:16 IMPRESSION: 1. Interval right PICC line adjustment. The tip is now in the left (contralateral) brachiocephalic vein. 2. Mild pulmonary edema. Lumbar Spine X-Ray 10/31/22 00:00 Impression: Lumbar decompression. Laboratory Results WBC 7.8 10^3/uL (4.0-10.0) 11/01/22 03:45 Corrected WBC Cancelled 10/29/22 03:23 RBC 3.43 10^6/uL (4.1-5.3) L 11/01/22 03:45 Hgb 11.5 g/dL (11.7-16.6) L 11/01/22 03:45 Hct 34.4 % (42.0-52.0) L 11/01/22 03:45 MCV 100.3 fl (80-94) H 11/01/22 03:45 MCH 33.5 pg (28.0-34.0) 11/01/22 03:45 MCHC 33.4 g/dL (30.0-36.0) 11/01/22 03:45 RDW 13.7 % (12.1-15.1) 11/01/22 03:45 Plt Count 81 10^3/cmm (130-400) L 11/01/22 03:45 MPV 9.6 fL (7.4-10.4) 11/01/22 03:45 Gran % Cancelled 10/29/22 03:23 Neut % (Auto) 84.3 % 11/01/22 03:45 Lymph % (Auto) 5.4 % 11/01/22 03:45 Giles % (Auto) 9.7 % 11/01/22 03:45 Eos % (Auto) 0.0 % 11/01/22 03:45 Baso % (Auto) 0.1 % 11/01/22 03:45 Neut # (Auto) 6.58 10^3/uL (1.8-7.7) 11/01/22 03:45 Lymph # (Auto) 0.4 10^3/uL (0.8-4.8) L 11/01/22 03:45 Giles # (Auto) 0.8 10^3/uL (0.2-0.9) 11/01/22 03:45 Eos # (Auto) 0.0 10^3/uL (0.0-0.8) 11/01/22 03:45 Baso # (Auto) 0.0 10^3/uL (0.0-0.1) 11/01/22 03:45 Absolute Gran (auto) Cancelled 10/29/22 03:23 Nucleated RBC % (auto) 0 % 11/01/22 03:45 Nucleated RBCs # 0.0 /100WBC 11/01/22 03:45 PT 16.00 SECONDS (12.1-14.9) H 10/27/22 00:47 INR 1.24 (0.8-1.2) H 10/27/22 00:47 Sodium 134 mmol/L (136-145) L 11/01/22 03:45 Potassium 4.6 mmol/L (3.5-5.1) 11/01/22 03:45 Chloride 104 mmol/L (98-107) 11/01/22 03:45 Carbon Dioxide 26 mmol/L (22-29) 11/01/22 03:45 Anion Gap 8.6 (5-19) 11/01/22 03:45 BUN 10 mg/dL (6-20) 11/01/22 03:45 Creatinine 0.3 mg/dL (0.7-1.2) L 11/01/22 03:45 GFR Calculation 318.7 mL/min (90-130) H 11/01/22 03:45 Glucose 110 mg/dL (65-115) 11/01/22 03:45 Calculated Osmolality 278 mOsm/kg (285-295) L 11/01/22 03:45 Lactic Acid 1.4 mmol/L (0.5-2.2) 10/27/22 00:47 Calcium 7.5 mg/dL (8.5-10.5) L 11/01/22 03:45 Magnesium 2.1 mg/dL (1.7-2.3) 11/01/22 03:45 Total Bilirubin 1.2 mg/dL (0.15-1.2) 11/01/22 03:45 AST 34 U/L (0-40) 11/01/22 03:45 ALT 26 U/L (0-41) 11/01/22 03:45 Alkaline Phosphatase 48 U/L (40-130) 11/01/22 03:45 Ammonia 51 umol/L (16-60) 10/30/22 03:42 C-Reactive Protein 3.0 mg/L (0.0-4.9) 10/30/22 03:42 Total Protein 4.6 g/dL (6.6-8.7) L 11/01/22 03:45 Albumin 2.5 g/dL (3.5-5.2) L 11/01/22 03:45 Globulin 2.1 g/dL (1.3-4.6) 11/01/22 03:45 Procalcitonin 0.04 ng/mL (0-0.5) 10/30/22 03:42 TSH 2.62 uIU/mL (0.27-4.20) 10/27/22 08:28 Random Cortisol 7.91 ug/dL (2.47-19.5) 10/27/22 04:03 Urine Color Dark yellow (Yellow) 10/27/22 09:00 Urine Appearance Clear (CLEAR) 10/27/22 09:00 Urine pH 5 (5-7) 10/27/22 09:00 Ur Specific Fisher 1.015 (1.005-1.030) 10/27/22 09:00 Urine Protein Neg (Negative) 10/27/22 09:00 Urine Glucose (UA) Norm (Normal) 10/27/22 09:00 Urine Ketones 1+ (Negative) H 10/27/22 09:00 Urine Blood Neg (Negative) 10/27/22 09:00 Urine Nitrate Negative (Negative) 10/27/22 09:00 Urine Bilirubin Neg (Negative) 10/27/22 09:00 Urine Urobilinogen 4 mg/dL (Negative) H 10/27/22 09:00 Ur Leukocyte Esterase Negative (Negative) 10/27/22 09:00 Ur Random Sodium < 10 mmol/L 10/27/22 09:00 Ur Random Potassium 73 mmol/L 10/27/22 09:00 Ur Random Chloride 18 mmol/L 10/27/22 09:00 Urine Creatinine 153 mg/dL (39-259) 10/27/22 09:00 Fluid Color Slight pink 10/27/22 13:00 Fluid Appearance Cloudy 10/27/22 13:00 Fluid Specific Grav 1.010 10/27/22 13:00 Fluid pH 8.0 10/27/22 13:00 Fluid WBC 187 /uL 10/27/22 13:00 Fluid RBC 10.000 10^3/uL 10/27/22 13:00 Fld Polynuclear WBCs # 0.056 10/27/22 13:00 Fld Polynuclear WBCs % 29.900 % 10/27/22 13:00 Fl Mononucl WBCs #(Auto) 0.131 10/27/22 13:00 Fl Mononuclear % Auto 70.100 % 10/27/22 13:00 Fld Crystal Laterality Peritoneal 10/27/22 13:00 Fluid Glucose 107.0 mg/dL 10/27/22 13:00 Fluid Total Protein 0.9 g/dL 10/27/22 13:00 Fluid Albumin 0.4 g/dL 10/27/22 13:00 Fluid LDH 42 U/L 10/27/22 13:00 Fluid Amylase 23 U/L 10/27/22 13:00 Fluid Alk Phosphatase 13 IU/L 10/27/22 13:00 Fluid Cholesterol 10 mg/dL (0-200) 10/27/22 13:00 Fluid Triglycerides 15 mg/dL (0-150) 10/27/22 13:00 Fluid Uric Acid 2 mg/dL 10/27/22 13:00 Nasal Influ A H1 2008 PCR Not detected (NOT DETECT) 10/27/22 17:40 Ethyl Alcohol 32 mg/dL (0-10) H 10/27/22 00:47 Adenovirus (PCR) Not detected (NOT DETECT) 10/27/22 17:40 C. pneumoniae DNA (PCR) Not detected (NOT DETECT) 10/27/22 17:40 Coronavirus 229E (PCR) Not detected (NOT DETECT) 10/27/22 17:40 Human Metapneumovir PCR Not detected (NOT DETECT) 10/27/22 17:40 Influenza A (H1) PCR Not detected (NOT DETECT) 10/27/22 17:40 Influenza A (H3) PCR Not detected (NOT DETECT) 10/27/22 17:40 Influenza Type A (PCR) Not detected (NOT DETECT) 10/27/22 17:40 Influenza Type B (PCR) Not detected (NOT DETECT) 10/27/22 17:40 M. pneumoniae (PCR) Not detected (NOT DETECT) 10/27/22 17:40 Parainfluenza 1 (PCR) Not detected (NOT DETECT) 10/27/22 17:40 Parainfluenza 2 (PCR) Not detected (NOT DETECT) 10/27/22 17:40 Parainfluenza 3 (PCR) Not detected (NOT DETECT) 10/27/22 17:40 Parainfluenza 4 (PCR) Not detected (NOT DETECT) 10/27/22 17:40 RSV Type A (PCR) Not detected (NOT DETECT) 10/27/22 17:40 RSV Type B (PCR) Not detected (NOT DETECT) 10/27/22 17:40 Entero/Rhino (PCR) Not detected (NOT DETECT) 10/27/22 17:40 SARS-CoV-2 (PCR) Not detected (NOT DETECT) 10/27/22 17:40 Vitals Last Vital Signs Temp 98.4 F 11/01/22 10:14 Pulse 60 11/01/22 10:14 Resp 18 11/01/22 10:14 BP 96/53 11/01/22 10:14 Pulse Ox 96 11/01/22 10:14 O2 Del Method Nasal Cannula 11/01/22 10:14 O2 Flow Rate 3 11/01/22 10:14 Discharge Plan Discharge Patient Disposition: Home Condition: Fair Prescriptions: Continued Invega Sustenna 234 mg/1.5 mL syringe 234 mg IM Q30D Qty: 1.5 0RF Rx Instructions: initial starting dose citalopram [Celexa] 20 mg tablet 20 mg PO DAILY Qty: 30 2RF paliperidone [Invega] 6 mg tablet extended release 24 hr 6 mg PO QAM Qty: 14 2RF Rx Instructions: daily as needed 2 weeks before injection is next due levetiracetam 750 mg tablet 750 mg PO BID 30 Days Qty: 60 1RF furosemide [Lasix] 20 mg tablet 20 mg PO DAILY Qty: 90 3RF thiamine HCl (vitamin B1) 100 mg tablet 100 mg PO DAILY Qty: 90 0RF lactulose 20 gram/30 mL solution 20 g PO DAILY Qty: 2880 5RF trazodone 50 mg tablet 50 mg PO BEDTIME gabapentin 400 mg capsule 400 mg PO TID metformin 500 mg tablet extended release 24 hr 500 mg PO BID Changed spironolactone 100 mg tablet 50 mg PO DAILY Qty: 60 2RF Discharge Orders: Discharge Order (Routine); Ordered 11/01/22 Ordered By: Owen Pierce Referrals: Jewell Hugo FNP-C [Primary Care Provider] - Discharge Diet: Cardiac Discharge Activity: Resume usual activity Patient Instructions: Opioid Safety Activity Restrictions/Additional Instructions: - Please abstain from alcohol consumption -Please continue physical therapy at home -Please see your primary care provider 1 week -Please hydrate well -See your primary care provider 1 week for recheck kidney function Discharge Attestations Time Spent in Discharge Care*: greater than 30 min Status at Discharge: Cognitive status at discharge: cognitively intact , Behavioral status at discharge: cooperative , Quality Metrics Clinical Quality Measures [ No reported AMI, CVA or VTE this stay] Coding Level of Care Code 52021 Total time (in minutes) for Discharge: 50 Diagnoses Status post lumbar laminectomy Z98.890 Right foot drop M21.371
[2022-11-01 11:41] VITALS: BP 96/53; PULSE 60; RESP 18; TEMP 36.9; O2SAT 96
--- NOTE | 2022-11-01 12:39 | PC.SLP ---
ST not provided today due to testing
[2022-11-01 13:27] VITALS: BP 110/66; PULSE 73; RESP 18; TEMP 37.5; O2SAT 95
--- NOTE | 2022-11-01 18:29 | PC.NURSE ---
Discharge education reviewed with patient, attempted to call to go over education and plan as well but no answer. Patient acknowledges discharge plans and follow up care including appointment for drains at GI lab in the AM. Patient left via WC in wheelchair van with walker and oxygen tank.
== END 2022-11-01 18:28 | disposition home or self-care (01) | DRG 516 ==
LOC: ER 10-27 04:40 → ICU 10-27 05:08 → MEDSURG 10-29 13:31
PROVIDERS: Orthopaedic Surgery; Admitting Provider Student in an Organized Health Care Education/Training Program; Emergency Provider Emergency Medicine; PCP Nurse Practitioner Family; Visit Provider Family Medicine
PROC: 01NB0ZZ Release Lumbar Nerve, Open Approach (ICD-10-PCS; CPT 63005; principal; 2022-10-31 14:05)
DX: M51.26 Other intervertebral disc displacement, lumbar region (principal); E46 Unspecified protein-calorie malnutrition; E87.1 Hypo-osmolality and hyponatremia; I69.951 Hemiplegia and hemiparesis following unspecified cerebrovascular disease affecting right dominant side; E87.20 Acidosis, unspecified; M21.371 Foot drop, right foot; M51.27 Other intervertebral disc displacement, lumbosacral region; F25.1 Schizoaffective disorder, depressive type; E11.9 Type 2 diabetes mellitus without complications; J44.9 Chronic obstructive pulmonary disease, unspecified; F10.229 Alcohol dependence with intoxication, unspecified; K70.31 Alcoholic cirrhosis of liver with ascites; Y90.1 Blood alcohol level of 20-39 mg/100 ml; Z79.891 Long term (current) use of opiate analgesic; Z79.84 Long term (current) use of oral hypoglycemic drugs; W19.XXXA Unspecified fall, initial encounter; I25.10 Atherosclerotic heart disease of native coronary artery without angina pectoris; E78.2 Mixed hyperlipidemia; F17.210 Nicotine dependence, cigarettes, uncomplicated; Z87.440 Personal history of urinary (tract) infections; Z68.26 Body mass index [BMI] 26.0-26.9, adult; E87.5 Hyperkalemia
CPT/HCPCS: 12345; 36415; 36569; 36592; 70450; 71045; 72020; 72131; 72148; 76000; 80048; 80053; 80307; 80503; 81003; 82042; 82140; 82150; 82436; 82465; 82533; 82570; 82945; 83605; 83615; 83735; 83986; 84075; 84133; 84145; 84157; 84295; 84300; 84315; 84443; 84478; 84560; 85025; 85610; 86140; 87040; 87070; 87075; 87077; 87186; 87205; 87486; 87581; 87633; 89050; 92507; 92523; 92526; 92610; 93005; 94640; 96360; 96361; 96376; 97116; 97161; 97165; 97168; 97530; 97535; 99285; A9281; C1751; J0690; J0696; J1100; J2060; J2405; J2704; J2710; J3010; J3370; J3490; J7030; J7040; J7131; J7613; P9046; Q3014

== ENCOUNTER 2022-11-02 02:00 | Inpatient (IN) | payer MEDICARE, MEDICAID, SELFPAY ==
[2022-11-02] VITALS (52 sets, daily range): BP systolic 89–123; BP diastolic 50–84; PULSE 67–117; RESP 13–31; TEMP 37.1–38.2; O2SAT 88–98; BMI 28.8; BMI 30.1
--- NOTE | 2022-11-02 02:09 | MRR_ITS ---
PROCEDURE INFORMATION: Exam: MR Lumbar Spine Without and With Contrast Exam date and time: 11/02/2022 3:16 AM Age: 47 years old Clinical indication: Pain; Lumbago; Additional info: Back pain/ leg numbness TECHNIQUE: Imaging protocol: Magnetic resonance imaging of the lumbar spine without and with contrast. Contrast material: MULTIHANCE; Contrast volume: 19 ml; Contrast route: INTRAVENOUS (IV); COMPARISON: MR lumbar spine wo con* [id number] 10/28/2022 11:04 AM FINDINGS: Bones/joints: No acute fracture. Moderate L3-S1 DDD. There is interval right-sided L4-S1 hemilaminectomy. There is fluid and edema in the defect on series 901, image 29. Spinal cord: No mass lesion noted. L1-L2: No significant disc bulge or herniation. No severe spinal canal stenosis. No significant neural foraminal narrowing. L2-L3: No significant disc bulge or herniation. No severe spinal canal stenosis. No significant neural foraminal narrowing. L3-L4: No significant disc bulge or herniation. No severe spinal canal stenosis. No significant neural foraminal narrowing. L4-L5: L4-L5 a moderate broad-based disc bulge causes eowourko-zd-cujbrk bilateral neural foraminal stenosis. At this level the central canal AP dimension measures about 4 mm. L5-S1: At L5-S1, a kzsuazhv-wb-vgmwk broad-based disc bulge causes wpnpmvqw-yd-wlxama bilateral neural foraminal stenosis. The central canal measures about 7 mm. Soft tissues: Severe back subcutaneous edema. Paraspinal postop edema as well. Other findings: There is very large motion throughout. MR/MR lumbar spine wo/w con [id number] IMPRESSION: 1. Exam is extremely limited due to motion. Compared with 5 days ago. 2. There appears to be interval right-sided L4-S1 hemilaminectomy defects. Correlate with precise levels performed. At these levels there is progressive jazhqcxl-yx-zdqgos spinal stenosis, which may be accentuated by motion. Here, there may be some elements of postop edema and blood product in the epidural areas. Epidural hematomas are possible. These should be reassessed on short-term follow-up, and if symptoms persist, this patient may need anesthesia to minimize motion. At these levels there is no recurrent disc herniation noted. Underlying moderate spondylosis. 3. No acute fracture or evidence of discitis/osteomyelitis.
--- NOTE | 2022-11-02 02:17 | XRR_ITS ---
PROCEDURE INFORMATION: Exam: XR Chest Exam date and time: 11/02/2022 2:23 AM Age: 47 years old Clinical indication: Prior surgery; Surgery date: 6+ months; Surgery type: Cardiac cath; Patient HX: Fever. History of copd. TECHNIQUE: Imaging protocol: Radiologic exam of the chest. Views: 1 view. COMPARISON: CR (CHEST, ) 10/28/2022 9:33 PM FINDINGS: Tubes, catheters and devices: Right PICC removal. Lungs: Right-sided patchy infiltrates have increased with small right effusion. Pleural spaces: No pneumothorax. Heart/Mediastinum: Stable heart size. Bones/joints: Unremarkable. XR/XR chest 1V portable [id number] IMPRESSION: Right-sided patchy pneumonia with effusion. Findings seem increased from 5 days ago.
--- NOTE | 2022-11-02 02:21 | ED_ITS ---
HPI - Extremity Problem General: Chief complaint: Extremity Problem,Nontraumatic Stated complaint: LEG NUMBNESS Time Seen by Provider: 11/02/22 02:04 Source: patient and EMS Mode of arrival: EMS Limitations: no limitations History of Present Illness: 47-year-old male has a history of cirrhosis CVA he was recently admitted to the hospital he had had a lumbar laminectomy 2 days ago for right-sided foot drop he was discharged roughly 12 hours ago he states that this evening roughly 34 hours ago he started having pain with weakness and numbness down the right leg states he fell out of bed has not been able to ambulate states he has movement that leg but not as much as he did and he has numbness that started new. Associated symptoms: Reports fever(s); Deny chest pain or rash Review of Systems Const: Reports: fever(s) and body aches; Denies: chills or change in appetite Eyes: Denies: blurry vision or eye discomfort ENMT: Denies: throat pain or dental pain Card: Denies: chest pain Resp: Denies: dyspnea GI: Denies: abdominal pain, nausea, vomiting or diarrhea : Denies: dysuria Musc: Reports: back pain and muscle weakness; Denies: neck pain Skin/Breast: Denies: rash Neuro: Denies: headache(s) PFSH ED PFSH: Medical History (Updated 11/02/22 @ 05:08 by Ronnie Layne MD) Abdominal ascites Acne rosacea ALC (alcoholic liver cirrhosis) Alcohol dependence Bipolar disorder Cirrhosis of liver Controlled diabetes mellitus with hyperglycemia COPD (chronic obstructive pulmonary disease) DM neuropathy, painful Essential (primary) hypertension History of alcohol abuse daily use of hard liquor History of coronary artery disease History of CVA (cerebrovascular accident) 2010 Right side weakness due to a bleed History of memory loss History of schizophrenia Hyperammonemia Hypoxia Major depression, recurrent, chronic Mixed hyperlipidemia Nicotine dependence, cigarettes, uncomplicated Nicotine dependence, unspecified, uncomplicated Psoriasis Psychiatric care Right foot drop Schizoaffective disorder Schizophrenia Seizure disorder Suicidal ideation Traumatic brain injury UTI (urinary tract infection) Surgical History (Updated 11/01/22 @ 10:56 by Fitz Linder PA-C) History of cardiac catheterization ~2014 done in [place], reports they discussed possible stent but he declined History of colonoscopy with polypectomy 2016 History of esophagogastroduodenoscopy (EGD) History of eye surgery Family History Other Dementia Diabetes Hypertension Lung disease Psychiatric illness Stroke Denies family history of Chronic kidney disease (CKD) Anesthesia complication Bleeding disorder Cancer Social History Smoking and tobacco status: current every day smoker cigarettes Packs smoked per day: 2.5 Second hand smoke exposure: Yes Alcohol intake: current Alcohol intake frequency: 3 or more drinks per day Alcohol type: hard liquor Substance/Drug Use: never Adopted: No Caregiver/support person: Yes Lives independently: No Household members: friend(s) and caregiver Housing: Manufactured/Mobile home Marital status: Number of children: 8 service: No Current occupational status: disabled Pets and animals: Yes Do you think of yourself as: Straight/Heterosexual Current gender identity: Male Physical Exam Const: COMMON NORMALS: patient oriented x3 HENMT: COMMON NORMALS: normocephalic and atraumatic HEAD & SCALP: normocephalic and atraumatic Eye: COMMON NORMALS: Equal, round and reactive pupils present and EOMs intact bilaterally PUPIL: Yes Equal, round and reactive pupils present Neck/C-Spine: COMMON NORMALS: full ROM and supple Chest: COMMONS NORMALS: normal inspection of the chest and normal palpation of entire chest wall Resp: COMMON NORMALS: normal respiratory effort, No retractions, No use of accessory muscles and clear to auscultation bilaterally AUSCULTATION: clear to auscultation bilaterally Cardio: COMMON NORMALS: regular rate, regular rhythm and No murmurs present (Cardio) RATE: regular rate RHYTHM: regular rhythm GI: COMMON NORMALS: Soft to palpation, non-tender and no masses PALPATION: Yes Soft to palpation OTHER: distended abdomen Back/Pelvis: OTHER: Incision to back clean dry intact Extremity: COMMON NORMALS: normal to inspection and full ROM NARRATIVE EXT REMITY EXAM: Paresthesias to right leg Neuro: COMMON NORMALS: patient oriented x3 Psych: COMMON NORMALS: mental status grossly normal, Normal thought process present and cooperative THOUGHT PROCESS: Normal thought process present Skin: COMMON NORMALS: no rashes or lesions noted and no wounds GENERAL SKIN EXAM: no rashes or lesions noted Course Vital Signs: Vital signs: Vital Signs Temperature 100.7 F H 11/02/22 02:21 Pulse Rate 99 11/02/22 04:25 Respiratory Rate 16 11/02/22 04:25 Blood Pressure 98/53 11/02/22 04:25 Pulse Oximetry 96 11/02/22 04:25 Oxygen Delivery Me thod Nasal Cannula 11/02/22 04:25 Oxygen Flow Rate 3 11/02/22 04:25 MDM - Extremity (Nontraumatic) Medical Decision Making Patient is present here with a fever he is found to have pneumonia did start him on IV antibiotics along with fluids. Patient also some leg numbness on the right side I discussed his MRI findings with his spine surgeon Dr. Gallo who is seen to see him in the morning will admit to the hospitalist at this time. He does have movement to that leg. Medical Records I reviewed the patient's medical records. Lab Data I reviewed the patient's lab results. 11/02/22 02:16 11/02/22 02:16 Radiology Impressions Lumbar Spine MRI 11/02/22 02:09 IMPRESSION: 1. Exam is extremely limited due to motion. Compared with 5 days ago. 2. There appears to be interval right-sided L4-S1 hemilaminectomy defects. Correlate with precise levels performed. At these levels there is progressive oowfqqmh-pr-nexhwc spinal stenosis, which may be accentuated by motion. Here, there may be some elements of postop edema and blood product in the epidural areas. Epidural hematomas are possible. These should be reassessed on short-term follow-up, and if symptoms persist, this patient may need anesthesia to minimize motion. At these levels there is no recurrent disc herniation noted. Underlying moderate spondylosis. 3. No acute fracture or evidence of discitis/osteomyelitis. ADDENDUM: 11/02/22 0438 THIS REPORT CONTAINS FINDINGS THAT MAY BE CRITICAL TO PATIENT CARE. The findings were verbally communicated via telephone conference at 4:37 AM CDT on 11/02/2022 with RONNIE DE JESUS. The findings were acknowledged and understood. Chest X-Ray 11/02/22 02:17 IMPRESSION: Right-sided patchy pneumonia with effusion. Findings seem increased from 5 days ago. Laboratory Results WBC 13.6 10^3/uL (4.0-10.0) H 11/02/22 02:16 RBC 3.54 10^6/uL (4.1-5.3) L 11/02/22 02:16 Hgb 11.7 g/dL (11.7-16.6) 11/02/22 02:16 Hct 35.8 % (42.0-52.0) L 11/02/22 02:16 MCV 101.1 fl (80-94) H 11/02/22 02:16 MCH 33.1 pg (28.0-34.0) 11/02/22 02:16 MCHC 32.7 g/dL (30.0-36.0) 11/02/22 02:16 RDW 13.6 % (12.1-15.1) 11/02/22 02:16 Plt Count 82 10^3/cmm (130-400) L 11/02/22 02:16 MPV 10.1 fL (7.4-10.4) 11/02/22 02:16 Neut % (Auto) 84.5 % 11/02/22 02:16 Lymph % (Auto) 4.8 % 11/02/22 02:16 [place] % (Auto) 9.7 % 11/02/22 02:16 Eos % (Auto) 0.1 % 11/02/22 02:16 Baso % (Auto) 0.1 % 11/02/22 02:16 Neut # (Auto) 11.54 10^3/uL (1.8-7.7) H 11/02/22 02:16 Lymph # (Auto) 0.7 10^3/uL (0.8-4.8) L 11/02/22 02:16 [place] # (Auto) 1.3 10^3/uL (0.2-0.9) H 11/02/22 02:16 Eos # (Auto) 0.0 10^3/uL (0.0-0.8) 11/02/22 02:16 Baso # (Auto) 0.0 10^3/uL (0.0-0.1) 11/02/22 02:16 Nucleated RBC % (auto) 0 % 11/02/22 02:16 Nucleated RBCs # 0.0 /100WBC 11/02/22 02:16 PT 18.60 SECONDS (12.1-14.9) H 11/02/22 02:16 INR 1.49 (0.8-1.2) H 11/02/22 02:16 Sodium 132 mmol/L (136-145) L 11/02/22 02:16 Potassium 4.2 mmol/L (3.5-5.1) 11/02/22 02:16 Chloride 102 mmol/L (98-107) 11/02/22 02:16 Carbon Dioxide 20 mmol/L (22-29) L 11/02/22 02:16 Anion Gap 14.2 (5-19) 11/02/22 02:16 BUN 10 mg/dL (6-20) 11/02/22 02:16 Creatinine 0.4 mg/dL (0.7-1.2) L 11/02/22 02:16 GFR Calculation 228.6 mL/min (90-130) H 11/02/22 02:16 Glucose 101 mg/dL (65-115) 11/02/22 02:16 Calculated Osmolality 273 mOsm/kg (285-295) L 11/02/22 02:16 Lactic Acid 3.3 mmol/L (0.5-2.2) H 11/02/22 02:16 Calcium 7.8 mg/dL (8.5-10.5) L 11/02/22 02:16 Total Bilirubin 1.3 mg/dL (0.15-1.2) H 11/02/22 02:16 AST 38 U/L (0-40) 11/02/22 02:16 ALT 18 U/L (0-41) 11/02/22 02:16 Alkaline Phosphatase 51 U/L (40-130) 11/02/22 02:16 Total Protein 4.7 g/dL (6.6-8.7) L 11/02/22 02:16 Albumin 2.4 g/dL (3.5-5.2) L 11/02/22 02:16 Globulin 2.3 g/dL (1.3-4.6) 11/02/22 02:16 Urine Color Yellow (Yellow) 11/02/22 03:12 Urine Appearance Hazy (CLEAR) A 11/02/22 03:12 Urine pH 6 (5-7) 11/02/22 03:12 Ur Specific [place] 1.020 (1.005-1.030) 11/02/22 03:12 Urine Protein Trace (Negative) 11/02/22 03:12 Urine Glucose (UA) Norm (Normal) 11/02/22 03:12 Urine Ketones 1+ (Negative) H 11/02/22 03:12 Urine Blood Trace (Negative) H 11/02/22 03:12 Urine Nitrate Negative (Negative) 11/02/22 03:12 Urine Bilirubin 1+ (Negative) H 11/02/22 03:12 Urine Urobilinogen 8 mg/dL (Negative) H 11/02/22 03:12 Ur Leukocyte Esterase Negative (Negative) 11/02/22 03:12 Urine RBC 0-4 /hpf (0-2) H 11/02/22 03:12 Urine WBC None /hpf (0-5) 11/02/22 03:12 Ur Squamous Epith Cells None /hpf (0-5) 11/02/22 03:12 Other Crystals Amm biurate /hpf 11/02/22 03:12 Amorphous Sediment Not Reportable 11/02/22 03:12 Urine Bacteria 1+ /hpf (NONE) H 11/02/22 03:12 Urine Mucus 2+ /hpf 11/02/22 03:12 Ur Oval Fat Bodies 1+ /hpf 11/02/22 03:12 Ethyl Alcohol < 10 mg/dL (0-10) 11/02/22 02:16 Critical Care Time Critical Care Time: Critical Care Time: Yes Total Critical Care Time: 40 Attestation: The high probability of a clinically significant, sudden or life threatening deterioration of the patient's resp system(s) required my full and direct attent ion, intervention and personal management. The critical care time is as shown. This time is in addition to time spent performing any reported procedures but includes the following: [x] Data and vital sign review and interpretation [x] Patient assessment, examination and intervention [x] Documentation [x] Medication orders and management Discharge Plan Discharge Patient Disposition: Admitted As Inpatient Admit Provider: Leah Rivero Clinical Impression: Pneumonia, Leg numbness Condition: Stable Prescriptions: No Action Invega Sustenna 234 mg/1.5 mL syringe 234 mg IM Q30D Qty: 1.5 0RF Rx Instructions: initial starting dose citalopram [Celexa] 20 mg tablet 20 mg PO DAILY Qty: 30 2RF paliperidone [Invega] 6 mg tablet extended release 24 hr 6 mg PO QAM Qty: 14 2RF Rx Instructions: daily as needed 2 weeks before injection is next due levetiracetam 750 mg tablet 750 mg PO BID 30 Days Qty: 60 1RF furosemide [Lasix] 20 mg tablet 20 mg PO DAILY Qty: 90 3RF thiamine HCl (vitamin B1) 100 mg tablet 100 mg PO DAILY Qty: 90 0RF lactulose 20 gram/30 mL solution 20 g PO DAILY Qty: 2880 5RF trazodone 50 mg tablet 50 mg PO BEDTIME gabapentin 400 mg capsule 400 mg PO TID metformin 500 mg tablet extended release 24 hr 500 mg PO BID spironolactone 100 mg tablet 50 mg PO DAILY Qty: 60 2RF Referrals: Jewell Hugo FNP-C [Primary Care Provider] - Coding Level of Care Code ED [employer] for Carlos Armstrong
[2022-11-02 02:25] LABS: Basophils % 0.1 %; Eosinophils % 0.1 %; Hematocrit 35.8 % (42.0-52.0); Hemoglobin 11.7 g/dL (11.7-16.6); Lymphocytes # 0.7 10^3/uL (0.8-4.8); Lymphocytes % 4.8 %; Mean Corpuscular HGB Conc 32.7 g/dL (30.0-36.0); Mean Corpuscular Hemoglobin 33.1 pg (28.0-34.0); Mean Corpuscular Volume 101.1 fl (80-94); Mean Platelet Volume 10.1 fL (7.4-10.4); Monocytes # 1.3 10^3/uL (0.2-0.9); Monocytes % 9.7 %; Neutrophils # 11.54 10^3/uL (1.8-7.7); Neutrophils % 84.5 %; Nucleated Red Blood Cells % 0 %; Platelet Count 82 10^3/cmm (130-400); Red Blood Count 3.54 10^6/uL (4.1-5.3); Red Cell Distribution Width 13.6 % (12.1-15.1); White Blood Count 13.6 10^3/uL (4.0-10.0)
[2022-11-02] MEDS: sodium chloride 0.9% 1,000 ML 999 ML IV ×3 (02:26→04:24)
[2022-11-02] MEDS: acetaminophen 500 mg Tablet 1000 MG PO (02:26)
[2022-11-02 02:40] LABS: INR 1.49 (0.8-1.2)
[2022-11-02 02:42] LABS: Lactic Sepsis W/Reflex 3.3 mmol/L (0.5-2.2)
[2022-11-02 02:43] LABS: Alanine Aminotransferase 18 U/L (0-41); Albumin Level 2.4 g/dL (3.5-5.2); Alkaline Phosphatase 51 U/L (40-130); Aspartate Amino Transferase 38 U/L (0-40); Blood Urea Nitrogen 10 mg/dL (6-20); Calcium 7.8 mg/dL (8.5-10.5); Carbon Dioxide 20 mmol/L (22-29); Chloride 102 mmol/L (98-107); Globulin 2.3 g/dL (1.3-4.6); Glomerular Filtration Rate 228.6 mL/min (90-130); Glucose 101 mg/dL (65-115); Osmolality Calculated 273 mOsm/kg (285-295); Sodium 132 mmol/L (136-145); Total Bilirubin 1.3 mg/dL (0.15-1.2); Total Protein 4.7 g/dL (6.6-8.7)
[2022-11-02 02:44] LABS: Alcohol Level < 10 mg/dL (0-10)
[2022-11-02 02:45] LABS: Anion Gap 14.2 (5-19); Potassium 4.2 mmol/L (3.5-5.1)
[2022-11-02] MEDS: LORazepam 2 mg/mL INJ 1 mL 1 MG IVP (03:05)
[2022-11-02] MEDS: gadobenate dimeglumine 20 mL vial IV (03:29)
[2022-11-02 03:51] LABS: Add Urine Microscopic? YES; Bilirubin Urine 1+ (Negative); Blood Urine Trace (Negative); Glucose Urine UA Norm (Normal); Ketones Urine 1+ (Negative); Leukocyte Esterase Urine Negative (Negative); Nitrate Urine Negative (Negative); Protein Urine Trace (Negative); Urine Appearance Hazy (CLEAR); Urine Color Yellow (Yellow); Urobilinogen Urine 8 mg/dL (Negative); pH Urine 6 (5-7)
[2022-11-02 03:54] LABS: Bacteria Urine 1+ /hpf; Mucus Urine 2+ /hpf; Oval Fat Bodies Urine 1+ /hpf; RBC Urine 0-4 /hpf (0-2)
[2022-11-02 03:55] LABS: Add Urine Culture? No; Other Crystals Urine AMM BIURATE /hpf
[2022-11-02] MEDS: piperacillin-tazobactam 3.375 GM in sodium chloride 0.9% (plus) 50 ML IV ×3 (04:05→17:14)
[2022-11-02 04:07] LABS: Reflex Lactate Order REFLEX LACTIC ORDERD
[2022-11-02] MEDS: vancomycin 1,000 MG in sodium chloride 0.9% 250 ML 250 MG IV (04:24)
[2022-11-02 05:41] LABS: Lactic Acid level (Lactate) 1.6 mmol/L (0.5-2.2)
--- NOTE | 2022-11-02 05:41 | P.HP_ITS ---
Providers/Chief Complaint Admitting Physician: Leah Rivero MD Primary Care Provider: YENI Perez Chief Complaint: LEG NUMBNESS History of Present Illness Reinaldo Flores is a 47 year old male with past medical history of alcoholic liver cirrhosis, bipolar disorder, cirrhosis, diabetes mellitus, COPD, diabetic neuropathy, hypertension, history of alcohol abuse, hyperammonemia, depression, hyperlipidemia, right foot drop status post laminectomy 2 days prior, schizophrenia, seizure disorder, recurrent ascites with peritoneal drain presented to the hospital today for complaint of weakness and numbness down the right leg. He states he fell out of bed and has not been able to ambulate since then. He is able to move the leg however but unable to bear weight on it. He says the numbness is new. He also reports a cough and a fever. He was discharged from the hospital a day ago. ED course: BP on arrival 98/53, saturating 3 L 96% on nasal cannula, respiratory 16, pulse 99, temp 100.7. Lumbar spine MRI was done which was extremely limited due to motion. But there appears to be interval right-sided L4 S1 heavy laminectomy defects. Progressive moderate to severe spinal stenosis which may be exaggerated by motion. There are some elements of postop edema and blood products in epidural areas, epidural hematomas are possible. This should be reassessed on short-term follow-up and if symptoms persist this patient may need anesthesia to minimize motion there is no disc herniation noted, underlying moderate spondylosis present. No acute fracture evidence of discitis osteomyelitis. Chest x-ray showed right-sided patchy pneumonia with effusion. This is a new finding compared to previous x-ray from 5 days ago. Case was discussed with Dr. Saldaña from ER. He will see the patient in consultation. Patient did receive 2 L normal saline in ER a sepsis bolus along with vancomycin, Zosyn, morphine for pain. He is to be admitted to the ICU at this time. Labs significant for WBC 13.6, hemoglobin 11.7, platelets 82, sodium 132, potassium 4.2, creatinine 0.4, lactic acid 3.3, calcium 7.8, urine positive for ketones, 0-4 RBC, 1+ bacteria, 2+ mucus. Medications/Allergies Home Medications Medication Instructions Recorded Confirmed Last Taken Type levetiracetam 750 mg tablet 750 mg PO BID 30 days #60 tabs 01/08/3010/27/22 09/28/22 Rx citalopram 20 mg tablet (Celexa) 20 mg PO DAILY #30 tabs 08/10/22 10/27/22 09/28/22 Rx paliperidone 6 mg tablet,extended 6 mg PO QAM #14 tabs 08/10/22 10/27/22 09/28/22 Rx release 24 hr (Invega) paliperidone palmitate 234 mg/1.5 234 mg (1.5 mL) IM Q30D #1.5 mL 08/10/22 10/27/22 09/28/22 Rx mL intramuscular syringe (Invega Sustenna) furosemide 20 mg tablet (Lasix) 20 mg PO DAILY #90 tabs 10/12/22 10/27/22 Unknown Rx lactulose 20 gram/30 mL oral 20 g (30 mL) PO DAILY #2,880 mL 10/12/22 10/27/22 Unknown Rx solution thiamine HCl (vitamin B1) 100 mg 100 mg PO DAILY #90 tabs 10/12/22 10/27/22 Unknown Rx tablet gabapentin 400 mg capsule 400 mg PO TID 10/13/22 10/27/22 Unknown History metformin 500 mg tablet,extended 500 mg PO BID 10/13/22 10/27/22 Unknown History release 24 hr trazodone 50 mg tablet 50 mg PO BEDTIME 10/13/22 10/27/22 Unknown History spironolactone 100 mg tablet 50 mg PO DAILY #60 tabs 11/01/22 10/27/22 09/28/22 Rx Allergies Allergy/AdvReac Type Severity Reaction Status Date / Time clozapine [From Clozaril] AdvReac Severe Lowered Verified 11/02/22 02:14 his WBC he says divalproex sodium AdvReac Severe swelling Verified 11/02/22 02:14 [From Depakote] haloperidol [From Haldol] AdvReac Severe swelling Verified 11/02/22 02:14 nitroglycerin AdvReac Severe Stopped Verified 11/02/22 02:14 heart Bee stings Allergy Severe Swelling & Uncoded 11/02/22 02:14 breathing problems, Anaphylactic shock PFSH Acute PFSH: Medical History (Updated 11/02/22 @ 06:44 by Leah Rivero MD) Abdominal ascites Acne rosacea ALC (alcoholic liver cirrhosis) Alcohol dependence Bipolar disorder Cirrhosis of liver Controlled diabetes mellitus with hyperglycemia COPD (chronic obstructive pulmonary disease) DM neuropathy, painful Essential (primary) hypertension History of alcohol abuse daily use of hard liquor History of coronary artery disease History of CVA (cerebrovascular accident) 2009 Right side weakness due to a bleed History of memory loss History of schizophrenia Hyperammonemia Hypoxia Major depression, recurrent, chronic Mixed hyperlipidemia Nicotine dependence, cigarettes, uncomplicated Nicotine dependence, unspecified, uncomplicated Psoriasis Psychiatric care Right foot drop Schizoaffective disorder Schizophrenia Seizure disorder Suicidal ideation Traumatic brain injury UTI (urinary tract infection) Surgical History (Updated 11/01/22 @ 10:56 by Fitz Linder PA-C) History of cardiac catheterization ~2014 done in [place], reports they discussed possible stent but he declined History of colonoscopy with polypectomy 2015 History of esophagogastroduodenoscopy (EGD) History of eye surgery Family History Other Dementia Diabetes Hypertension Lung disease Psychiatric illness Stroke Denies family history of Chronic kidney disease (CKD) Anesthesia complication Bleeding disorder Cancer Social History Smoking and tobacco status: current every day smoker cigarettes Packs smoked per day: 2.5 Second hand smoke exposure: Yes Alcohol intake: current Alcohol intake frequency: 3 or more drinks per day Alcohol type: hard liquor Substance/Drug Use: never Adopted: No Caregiver/support person: Yes Lives independently: No Household members: friend(s) and caregiver Housing: Manufactured/Mobile home Marital status: Number of children: 8 service: No Current occupational status: disabled Pets and animals: Yes Do you think of yourself as: Straight/Heterosexual Current gender identity: Male Vitals/I&O/Wt Last Vital Signs Temp 100.7 F H 11/02/22 02:21 Pulse 99 11/02/22 04:25 Resp 16 11/02/22 04:25 BP 98/53 11/02/22 04:25 Pulse Ox 96 11/02/22 04:25 O2 Del Method Nasal Cannula 11/02/22 04:25 O2 Flow Rate 3 11/02/22 04:25 Weight last 48 hrs Weight 86.183 kg Physical Exam Narrative: General: Alert oriented x3, patient seen laying in bed in ICU room 3 on 3 L nasal cannula at this time. HEENT: Normocephalic, atraumatic, EOMI, breathing comfortably. Cardio: Regular rate rhythm, normal S1-S2 Respiratory: Clear to auscultation bilaterally with diminished at right base GI: Abdomen soft, nontender, bowel sounds +, peritoneal drain present Extremities: No edema noted at this time Data 11/02/22 02:16 11/02/22 02:16 Micro: Microbiology 11/02/22 02:38 Blood Culture - Preliminary Blood SPECIMEN COLLECTED 11/02/22 02:31 Blood Culture - Preliminary Blood SPECIMEN COLLECTED A&P Assessment and plan (1) Pneumonia: (2) Leg numbness: (3) Right foot drop: (4) Right sided weakness: (5) ALC (alcoholic liver cirrhosis): (6) Status post lumbar laminectomy: (7) COPD (chronic obstructive pulmonary disease): (8) Protein calorie malnutrition: (9) Alcohol dependence: (10) History of CVA (cerebrovascular accident): (11) Ascites due to alcoholic cirrhosis: (12) Essential (primary) hypertension: (13) Schizoaffective disorder: Plan #Sepsis secondary to right sided pneumonia #Elevated lactic acid #Left leg numbness, weakness. #Status post laminectomy 10/31 2022 #Possible epidural hematomas #Postop pain/postlaminectomy syndrome #Recurrent ascites status post peritoneal drain #Alcoholic liver cirrhosis #History of alcohol abuse #Diabetes mellitus #COPD #Rule out SBP #Protein calorie malnutrition #Physical deconditioning #History of seizures #Thrombocytopenia secondary to liver cirrhosis ? Patient is status post 3 L normal saline bolus. I will place on normal saline 75 cc/h ? Hold spironolactone and Lasix at this time and reassess to have it restarted later ? Continue patient on vancomycin and Zosyn ? Lactic acid is elevated at 3.3, patient hypotensive, slightly tachycardic on arrival with temp elevation. Meet sepsis criteria. ? Blood cultures, urine culture, sputum culture Gram stain to be obtained ? Check bacterial antigen Legionella, Streptococcus ? Question of aspiration? ? Continue thiamine, bedtime trazodone, Invega ? Continue citalopram ? Continue lactulose 20 daily ? Continue Keppra 750 twice daily ? Rule out SBP. Check ascitic fluid for fluid analysis ? Continue on Protonix 40 IV daily ? Spine surgery consulted from ER. Dr. Gallo to see patient in consultation. MRI shows evidence of epidural hematomas and postop edema. Await recommendations. Talked with Fitz from spine surgery. Will give dexamethasone 6 IV x1 - check venous dopplers to r/o dvt ? Fall precautions ? PT OT when cleared by spine surgery ? Continue oxygen nasal cannula ? Tylenol 650 every 8 hours as needed for fever Full code SCDs for DVT prophylaxis Attestations Medical Necessity Statement*: Will cross greater than 2 midnight stay in the hospital for management of left leg weakness numbness and right-sided pneumonia Coding Level of Care Code G0426 (50 min) TH Encounter Time (min): 50 Patient seen via Telehealth in the acute care setting (hospital or ED location) by agreement and consent of patient or patient small business sales representative. Telehealth technology used during the visit includes video and audio. This patient encounter is appropriate and reasonable under the circumstances given the patient?s particular presentation at this time. The patient has been advised of the potential risks and limitations of this mode of treatment (including but not limited to the absence of in-person examination at this time) and has agreed to be treated by an off-site physician for this visit. If deemed clinically necessary from this telehealth visit, or if condition or consent for telehealth visit changes, an in-person visit will be arranged. For this encounter, total time for the origination of telehealth care on this date is as shown. Diagnoses Pneumonia J18.9 Leg numbness R20.0 Right foot drop M21.371 Right sided weakness R53.1 ALC (alcoholic liver cirrhosis) K70.30 Status post lumbar laminectomy Z98.890 COPD (chronic obstructive pulmonary disease) J44.9 Protein calorie malnutrition E46 Alcohol dependence F10.20 History of CVA (cerebrovascular accident) Z86.73 Ascites due to alcoholic cirrhosis K70.31 Essential (primary) hypertension I10 Schizoaffective disorder F25.9
[2022-11-02] MEDS: sodium chloride 0.9% 1,000 ML 75 ML IV ×2 (06:01→18:58)
[2022-11-02 07:36] LABS: INR 1.52 (0.8-1.2)
[2022-11-02] MEDS: dexamethasone 10 mg/mL INJ 6 MG IVP (07:55)
--- NOTE | 2022-11-02 08:42 | PC.PHAR ---
Addendum entered by Emi Gonzalez 11/02/22 09:47: pts shilo states the pt doesnt take his medications like he is suppose to states he only takes them when he thinks he needs them-states the pt no longer has any levetiracetam 750mg bid filled 06/13/22 30d/s-lisinopril 20mg daily filled 08/16/22 90d/s-norco 5/325mg q6h prn filled 08/21/22 30d/s-trazodone 50mg hs filled 08/10/22 30d/s-invega er 6mg rx filled 08/10/22 14d/s-pts also states the pt is 2 months behind on his invega [facility] states the pts lasix 20mg daily filled 10/12/22 90d/s-and spirononlactone 50mg daily filled 11/01/22 60d/s hasnt been picked up from the pharmacy-pts states the pt is very non compliant notes are made in the pharmacy comments Original Note: pt states his shilo takes care of his medications-left message for shilo
[2022-11-02] MEDS: ipratropium-albuterol 3 mL Neb INHALATION ×4 (09:08→19:56)
[2022-11-02] MEDS: levETIRAcetam 500 mg Tablet 750 MG PO ×2 (09:10→17:15)
[2022-11-02] MEDS: thiamine 100 mg Tablet PO (09:10)
[2022-11-02] MEDS: pantoprazole 40 mg SDV IVP (09:10)
[2022-11-02] MEDS: citalopram 20 mg Tablet PO (09:10)
[2022-11-02] MEDS: lactulose oral liq 20 gm/30 mL UDC PO (09:10)
[2022-11-02] MEDS: paliperidone ER 6 mg Tablet PO (09:15)
[2022-11-02] MEDS: oxyCODONE 5 mg IR Tab/Cap PO ×2 (09:21→18:26)
[2022-11-02 10:09] LABS: Body Fluid Polynuclear #Cells 0.043; Body Fluid WBC 175 /uL; Monocytes # Body Fluid 0.132
--- NOTE | 2022-11-02 10:16 | P.PN_ITS ---
Subjective Subjective: POD 2 Pt resting comfortably. C/O right leg weakness Vitals/I&O/Wt Last Vital Signs Temp 98.9 F 11/02/22 08:00 Pulse 83 11/02/22 09:15 Resp 17 11/02/22 09:21 BP 104/73 11/02/22 09:00 Pulse Ox 96 11/02/22 09:21 O2 Del Method Nasal Cannula 11/02/22 09:00 O2 Flow Rate 3 11/02/22 09:00 11/01/22 11/02/22 11/02/22 22:59 06:59 14:59 Intake Total 2300 / 2300 1000 / 1000 Balance 2300 / 2300 1000 / 1000 Weight last 48 hrs Weight 198 lb Weight 198 lb Weight 190 lb Physical Exam Narrative: RLE: weakness, digits warm with good cap refill, calves supple Incision c/d Urinary Catheter Management: Aleman: Cath Placed During This Visit: yes Reason for Continuing Indwelling Catheter: Accurate Measurement of Urinary Output in Critically Ill Patients Urinary Catheter Date of Insertion: 11/02/22 Urinary Catheter Time of Insertion: 06:43 Data 11/02/22 02:16 11/02/22 02:16 Micro: Microbiology 11/02/22 06:42 Bacterial Antigens - Final Urine,Clean Catch 11/02/22 06:42 Legionella Urinary Antigen - Final Urine Catheterized 11/02/22 02:38 Blood Culture - Preliminary Blood SPECIMEN COLLECTED 11/02/22 02:31 Blood Culture - Preliminary Blood SPECIMEN COLLECTED A&P Assessment and plan (1) Status post lumbar laminectomy: Please fit RLE with Padded Reinaldo Boot, prevent Heel ulcers and hold ankle at Neutral. I disscussed AFO with Physical Therapy, but they were concerned about skin breakdown with off the shelf AFO. Encourage Mobilization. [facility] for Pulm Toilet. [employer] FOr placement. (2) Right foot drop: Attestations Medical Necessity Statement*: Defer to Medical Team Coding Level of Care Code Acute Code for [facility] Fwd Diagnoses Status post lumbar laminectomy Z98.890 Right foot drop M21.371
[2022-11-02 10:19] LABS: Apprearance, Body Fluid CLEAR; Color, Body Fluid PALE YELLOW
[2022-11-02 10:20] LABS: Cyto Order Verification Order Verified; Fluid Laterality PERITONEAL
[2022-11-02 10:21] LABS: Body Fluid Specific Gravity 1.015
[2022-11-02 11:10] LABS: Fluid Alkaline Phos. 12 IU/L
[2022-11-02 11:11] LABS: Amylase Body Fluid 17 U/L; Cholesterol Body Fluid 24 mg/dL (0-200); LDH Body Fluid 42 U/L; Total Protein Body Fluid 1.4 g/dL; Triglycerides Body Fluid 18 mg/dL (0-150); Uric Acid Body Fluid 2 mg/dL
[2022-11-02] MEDS: vancomycin 1,750 MG/350 ML PIGGYBACK 233.33 MG IV (12:17)
[2022-11-02] MEDS: vancomycin 1,750 MG/350 ML PIGGYBACK 233.3 MG IV (21:29)
[2022-11-03] VITALS (30 sets, daily range): BP systolic 91–124; BP diastolic 59–85; PULSE 58–103; RESP 12–23; TEMP 36.8–36.9; O2SAT 91–97; BMI 30.1
[2022-11-03] MEDS: piperacillin-tazobactam 3.375 GM in sodium chloride 0.9% (plus) 50 ML IV ×3 (02:38→17:05)
[2022-11-03] MEDS: oxyCODONE 5 mg IR Tab/Cap PO ×3 (02:38→20:26)
[2022-11-03 03:53] LABS: Basophils % 0.1 %; Eosinophils % 0.1 %; Hematocrit 31.9 % (42.0-52.0); Hemoglobin 10.6 g/dL (11.7-16.6); Lymphocytes # 0.6 10^3/uL (0.8-4.8); Lymphocytes % 7.2 %; Mean Corpuscular HGB Conc 33.2 g/dL (30.0-36.0); Mean Corpuscular Hemoglobin 33.3 pg (28.0-34.0); Mean Corpuscular Volume 100.3 fl (80-94); Monocytes # 0.8 10^3/uL (0.2-0.9); Monocytes % 9.4 %; Neutrophils # 7.28 10^3/uL (1.8-7.7); Neutrophils % 82.5 %; Nucleated Red Blood Cells % 0 %; Platelet Count 83 10^3/cmm (130-400); Red Blood Count 3.18 10^6/uL (4.1-5.3); Red Cell Distribution Width 13.7 % (12.1-15.1); White Blood Count 8.8 10^3/uL (4.0-10.0)
[2022-11-03 04:08] LABS: Alanine Aminotransferase 18 U/L (0-41); Albumin Level 2.4 g/dL (3.5-5.2); Alkaline Phosphatase 49 U/L (40-130); Anion Gap 10.2 (5-19); Aspartate Amino Transferase 29 U/L (0-40); Blood Urea Nitrogen 11 mg/dL (6-20); Calcium 7.7 mg/dL (8.5-10.5); Carbon Dioxide 24 mmol/L (22-29); Chloride 104 mmol/L (98-107); Globulin 2.1 g/dL (1.3-4.6); Glomerular Filtration Rate 318.7 mL/min (90-130); Glucose 110 mg/dL (65-115); Osmolality Calculated 278 mOsm/kg (285-295); Potassium 4.2 mmol/L (3.5-5.1); Sodium 134 mmol/L (136-145); Total Bilirubin 1.2 mg/dL (0.15-1.2); Total Protein 4.5 g/dL (6.6-8.7)
[2022-11-03 04:09] LABS: Vancomycin Trough 12.6 ug/mL (10-15)
[2022-11-03] MEDS: vancomycin 1,750 MG/350 ML PIGGYBACK 233.3 MG IV (05:44)
[2022-11-03] MEDS: paliperidone ER 6 mg Tablet PO (06:18)
[2022-11-03] MEDS: sodium chloride 0.9% 1,000 ML 75 ML IV (07:57)
[2022-11-03] MEDS: pantoprazole 40 mg SDV IVP (08:00)
[2022-11-03] MEDS: thiamine 100 mg Tablet PO (08:00)
[2022-11-03] MEDS: levETIRAcetam 500 mg Tablet 750 MG PO ×2 (08:00→17:04)
[2022-11-03] MEDS: lactulose oral liq 20 gm/30 mL UDC PO (08:00)
[2022-11-03] MEDS: citalopram 20 mg Tablet PO (08:01)
[2022-11-03] MEDS: ipratropium-albuterol 3 mL Neb INHALATION ×4 (08:06→20:05)
[2022-11-03 09:59] LABS: C Reactive Protein 87.3 mg/L (0.0-4.9)
[2022-11-03 14:30] LABS: Methicillin-Resist S.aureu PCR NOT DETECTED (NOT DETECTED)
--- NOTE | 2022-11-03 15:07 | P.PN_ITS ---
Subjective Subjective: Patient reports he is feeling slightly better. Reports ongoing cough, sometimes productive. Denies fevers, chills, nausea or emesis. Medications: Reviewed: Yes Vitals/I&O/Wt Last Vital Signs Temp 98.3 F 11/03/22 00:00 Pulse 75 11/03/22 14:00 Resp 15 11/03/22 14:00 BP 100/76 11/03/22 14:00 Pulse Ox 94 11/03/22 12:00 O2 Del Method Nasal Cannula 11/03/22 11:08 O2 Flow Rate 2 11/03/22 11:08 11/03/22 11/03/22 11/03/22 06:59 14:59 22:59 Intake Total 600 / 3757.25 2143.75 / 2143.75 Output Total 350 / 1650 Balance 250 / 2107.25 2143.75 / 2143.75 Weight last 48 hrs Weight 89.811 kg Weight 89.811 kg Weight 89.811 kg Weight 86.183 kg Physical Exam Narrative: General: Patient is awake and alert. Lying in bed. Head: Normocephalic. Atraumatic. EOM intact. Neck: No JVD. Cardiovascular: RRR. No gallops. No murmurs. Lungs: Clear to auscultation, no use of accessory muscles, no crackles or wheezes. Skin: No jaundice. No rashes. Abdomen: Normal bowel sounds, abdomen soft and nontender. Genito Urinary: Genital exam not performed since complaints not related. Rectal: Rectal exam not performed since no symptoms indicated blood loss. Extremities: No cyanosis or clubbing. Musculoskeletal: Lower extremity weakness noted. Neurological: No myoclonus. Urinary Catheter Management: Aleman: Cath Placed During This Visit: yes Reason for Continuing Indwelling Catheter: Accurate Measurement of Urinary Output in Critically Ill Patients Urinary Catheter Date of Insertion: 11/02/22 Urinary Catheter Time of Insertion: 06:43 Data 11/03/22 03:10 11/03/22 03:10 Micro: Microbiology 11/02/22 09:45 Gram Stain - Final Peritoneal Fluid 11/02/22 02:38 Blood Culture - Preliminary Blood NEGATIVE TO DATE 11/02/22 02:31 Blood Culture - Preliminary Blood NEGATIVE TO DATE A&P Assessment and plan (1) Sepsis: SIRS: HR > 90, WBC > 12 Source: PNA End organ damage: Hypoxia, Elevated Lactate Secondary to pneumonia MRSA negative Discontinue vancomycin Continue Zosyn Aspiration precautions Speech therapy evaluation (2) Pneumonia: Continue supplemental oxygen, wean as tolerated Pulmonary toilet As above (3) Status post lumbar laminectomy: Orthopedics consulted, appreciate recommendations Therapy consulted Wound care Anticipate post acute needs (4) Schizoaffective disorder: Continue Celexa Continue Invega (5) Essential (primary) hypertension: Stop IV fluids (6) ALC (alcoholic liver cirrhosis): Hx of decompensated liver cirrhois with ascites and thrombocytopenia Stop IV fluids Avoid hepatotoxins Plan DVT ppx: SCD Code status: Full Code Attestations Medical Necessity Statement*: Patient requires ongoing hospitalization for IV antibiotics, speech evaluation, monitoring of labs, and supportive care. Coding Level of Care Code Acute Code for [facility] Fwd Diagnoses Sepsis A41.9 Pneumonia J18.9 Status post lumbar laminectomy Z98.890 Schizoaffective disorder F25.9 Essential (primary) hypertension I10 ALC (alcoholic liver cirrhosis) K70.30
--- NOTE | 2022-11-03 18:44 | PC.NURSE ---
notified of transfer to room 266
[2022-11-04] VITALS (12 sets, daily range): BP systolic 92–110; BP diastolic 55–78; PULSE 57–102; RESP 15–20; TEMP 36.6–37.3; O2SAT 95–98
[2022-11-04] MEDS: piperacillin-tazobactam 3.375 GM in sodium chloride 0.9% (plus) 50 ML IV ×3 (02:52→17:21)
[2022-11-04] MEDS: paliperidone ER 6 mg Tablet PO (06:37)
[2022-11-04] MEDS: ipratropium-albuterol 3 mL Neb INHALATION ×4 (07:52→19:51)
[2022-11-04] MEDS: citalopram 20 mg Tablet PO (09:03)
[2022-11-04] MEDS: levETIRAcetam 500 mg Tablet 750 MG PO ×2 (09:03→17:19)
[2022-11-04] MEDS: pantoprazole 40 mg SDV IVP (09:04)
[2022-11-04] MEDS: thiamine 100 mg Tablet PO (09:04)
[2022-11-04] MEDS: lactulose oral liq 20 gm/30 mL UDC PO (09:04)
[2022-11-04] MEDS: oxyCODONE 5 mg IR Tab/Cap PO (11:34)
--- NOTE | 2022-11-04 15:54 | PM.PN ---
Subjective Subjective: Patient states he feeling slightly better today. Continue to endorse shortness of breath and copious productive cough. Denies fevers, chills, nausea or emesis. Reports appetite is OK. Still having significant pain in lower extremities. He rates it 8 out of 10. Medications: Reviewed: Yes Vitals/I&O/Wt Last Vital Signs Temp 97.9 F 11/04/22 07:00 Pulse 75 11/04/22 11:22 Resp 16 11/04/22 11:34 BP 110/78 11/04/22 09:16 Pulse Ox 96 11/04/22 11:22 O2 Del Method Nasal Cannula 11/04/22 11:22 O2 Flow Rate 2 11/04/22 11:22 11/04/22 11/04/22 11/04/22 06:59 14:59 22:59 Intake Total 50 / 2693.75 1080 / 1080 50 / 1130 Output Total 200 / 1100 Balance -150 / 1593.75 1080 / 1080 50 / 1130 Weight last 48 hrs Weight 95.935 kg Weight 89.811 kg Physical Exam Narrative: General: Patient is awake and alert. Lying in bed. Frail appearing. Head: Normocephalic. Atraumatic. EOM intact. Neck: No JVD. Cardiovascular: RRR. No gallops. No murmurs. Lungs: Clear to auscultation, no use of accessory muscles, no crackles or wheezes. Skin: No jaundice. No rashes. Abdomen: Normal bowel sounds, abdomen soft and nontender. Extremities: No cyanosis or clubbing. Musculoskeletal: Lower extremity weakness. Neurological: No myoclonus. Urinary Catheter Management: Aleman: Cath Placed During This Visit: yes Reason for Continuing Indwelling Catheter: Other Urinary Catheter Date of Insertion: 11/02/22 Urinary Catheter Time of Insertion: 06:43 Data 11/03/22 03:10 11/03/22 03:10 Micro: Microbiology 11/02/22 09:45 Gram Stain - Final Peritoneal Fluid Anaerobic Culture - Preliminary Body Fluid Culture - Preliminary Strep species, gamma-hemolytic A&P Assessment and plan (1) Sepsis: SIRS: HR > 90, WBC > 12 Source: PNA End organ damage: Hypoxia, Elevated Lactate Continue Zosyn Peritoneal fluid culture prelim w/ Strep specie, WBC from analysis only 175 Follow up remaining cultures Aspiration precautions Speech therapy evaluated (2) Pneumonia: Continue supplemental oxygen, wean as tolerated Pulmonary toilet As above (3) Status post lumbar laminectomy: Orthopedics consulted, appreciate recommendations Therapy consulted Wound care Anticipate post acute needs (4) Schizoaffective disorder: Continue Celexa Continue Invega (5) Essential (primary) hypertension: Stop IV fluids (6) ALC (alcoholic liver cirrhosis): Hx of decompensated liver cirrhosis with ascites and thrombocytopenia Avoid hepatotoxins Plan DVT ppx: SCD Code status: Full Code Attestations Medical Necessity Statement*: Patient requires ongoing hospitalization for IV antibiotics, monitoring of labs, and supportive care. Coding Level of Care Code Acute Code for [facility] Fwd Diagnoses Sepsis A41.9 Pneumonia J18.9 Status post lumbar laminectomy Z98.890 Schizoaffective disorder F25.9 Essential (primary) hypertension I10 ALC (alcoholic liver cirrhosis) K70.30
[2022-11-05] VITALS (16 sets, daily range): BP systolic 93–125; BP diastolic 56–75; PULSE 75–102; RESP 14–20; TEMP 36.3–37; O2SAT 91–99
[2022-11-05] MEDS: piperacillin-tazobactam 3.375 GM in sodium chloride 0.9% (plus) 50 ML IV ×2 (01:23→10:03)
[2022-11-05 04:27] LABS: Basophils % 0.2 %; Eosinophils # 0.2 10^3/uL (0.0-0.8); Eosinophils % 3.1 %; Hematocrit 34.5 % (42.0-52.0); Hemoglobin 11.2 g/dL (11.7-16.6); Lymphocytes # 1.2 10^3/uL (0.8-4.8); Lymphocytes % 20.1 %; Mean Corpuscular HGB Conc 32.5 g/dL (30.0-36.0); Mean Corpuscular Hemoglobin 32.7 pg (28.0-34.0); Mean Corpuscular Volume 100.9 fl (80-94); Mean Platelet Volume 10.4 fL (7.4-10.4); Monocytes # 0.5 10^3/uL (0.2-0.9); Monocytes % 8.4 %; Neutrophils # 3.96 10^3/uL (1.8-7.7); Neutrophils % 67.9 %; Nucleated Red Blood Cells % 0 %; Platelet Count 109 10^3/cmm (130-400); Red Blood Count 3.42 10^6/uL (4.1-5.3); Red Cell Distribution Width 13.7 % (12.1-15.1); White Blood Count 5.8 10^3/uL (4.0-10.0)
[2022-11-05 04:51] LABS: Albumin Level 2.1 g/dL (3.5-5.2); Blood Urea Nitrogen 12 mg/dL (6-20); Calcium 7.7 mg/dL (8.5-10.5); Carbon Dioxide 25 mmol/L (22-29); Chloride 108 mmol/L (98-107); Glomerular Filtration Rate 318.7 mL/min (90-130); Glucose 72 mg/dL (65-115); Magnesium 1.9 mg/dL (1.7-2.3); Phosphorus 3.5 mg/dL (2.5-4.5); Sodium 138 mmol/L (136-145)
[2022-11-05] MEDS: paliperidone ER 6 mg Tablet PO (05:39)
[2022-11-05] MEDS: ipratropium-albuterol 3 mL Neb INHALATION ×3 (08:40→20:35)
[2022-11-05] MEDS: levETIRAcetam 500 mg Tablet 750 MG PO ×2 (08:45→17:46)
[2022-11-05] MEDS: lactulose oral liq 20 gm/30 mL UDC PO (08:45)
[2022-11-05] MEDS: thiamine 100 mg Tablet PO (08:46)
[2022-11-05] MEDS: citalopram 20 mg Tablet PO (08:46)
[2022-11-05] MEDS: pantoprazole 40 mg SDV IVP (08:46)
[2022-11-05] MEDS: oxyCODONE 5 mg IR Tab/Cap PO ×3 (08:49→17:53)
--- NOTE | 2022-11-05 10:08 | PC.SOCIAL ---
Imm update IMM updated with patient at bedside. Copy of page 2 provided. Patient verbalized understanding. Copy in chart initialed,dated and timed.
--- NOTE | 2022-11-05 12:31 | PM.PN ---
Subjective Subjective: Patient is stating that he is agreeable for senior living placement No active abdominal pain he is complaining of pain in his legs and back Able to move his extremities without any discomfort Vitals/I&O/Wt Last Vital Signs Temp 97.7 F 11/05/22 09:21 Pulse 98 11/05/22 11:28 Resp 18 11/05/22 11:28 BP 116/73 11/05/22 08:53 Pulse Ox 96 11/05/22 11:28 O2 Del Method Nasal Cannula 11/05/22 11:28 O2 Flow Rate 1 11/05/22 11:28 11/04/22 11/05/22 11/05/22 22:59 06:59 14:59 Intake Total 660 / 1740 50 / 1790 240 / 240 Output Total 500 / 500 200 / 700 Balance 160 / 1240 -150 / 1090 240 / 240 Weight last 48 hrs Weight 96.479 kg Weight 95.935 kg Physical Exam Narrative: Awake and alert Laying right lateral position Peritoneal drain in place Abdomen soft Patient able to move his lower extremities Aleman catheter in place Awake and alert no signs of encephalopathy GCS 15 S1, S2 Currently on 1 L nasal cannula Urinary Catheter Management: Aleman: Cath Placed During This Visit: yes Reason for Continuing Indwelling Catheter: Other Urinary Catheter Date of Insertion: 11/02/22 Urinary Catheter Time of Insertion: 06:43 Data 11/05/22 03:55 11/05/22 03:55 Micro: Microbiology 11/02/22 09:45 Mycobacterial Smear - Preliminary Body Fluids - Peritoneal 11/02/22 09:45 Gram Stain - Final Peritoneal Fluid Anaerobic Culture - Preliminary Body Fluid Culture - Preliminary Strep species, gamma-hemolytic A&P Assessment and plan (1) Sepsis: (2) Schizoaffective disorder: (3) Essential (primary) hypertension: (4) Pneumonia: (5) Leg numbness: (6) Status post lumbar laminectomy: (7) Right foot drop: (8) Right sided weakness: (9) ALC (alcoholic liver cirrhosis): (10) COPD (chronic obstructive pulmonary disease): (11) Protein calorie malnutrition: (12) Alcohol dependence: Plan Sepsis related to pneumonia Currently requiring 1.5 L related to pneumonia and hypoventilation Sepsis has resolved Afebrile Cultures negative No signs of SBP No signs of asterixis Currently on Zosyn I will change to Augmentin On aspiration precautions speech therapy evaluation Status post lumbar laminectomy able to move his extremities Complaining of mild back pain Continue Celexa and Invega for schizoaffective disorder Ascites does not need fluids for now No active decompensation of underlying liver cirrhosis Attestations Medical Necessity Statement*: Continue medical management waiting placement Diagnoses Sepsis A41.9 Schizoaffective disorder F25.9 Essential (primary) hypertension I10 Pneumonia J18.9 Leg numbness R20.0 Status post lumbar laminectomy Z98.890 Right foot drop M21.371 Right sided weakness R53.1 ALC (alcoholic liver cirrhosis) K70.30 COPD (chronic obstructive pulmonary disease) J44.9 Protein calorie malnutrition E46 Alcohol dependence F10.20
[2022-11-05] MEDS: amoxicillin-clav 875-125 mg Tablet 1 TAB PO (17:46)
[2022-11-06] VITALS (12 sets, daily range): BP systolic 94–121; BP diastolic 58–79; PULSE 70–86; RESP 16–19; TEMP 36.5–37.2; O2SAT 95–98; BMI 32.6
[2022-11-06] MEDS: paliperidone ER 6 mg Tablet PO (05:15)
[2022-11-06] MEDS: ipratropium-albuterol 3 mL Neb INHALATION ×3 (08:00→16:26)
[2022-11-06] MEDS: pantoprazole 40 mg SDV IVP (09:37)
[2022-11-06] MEDS: lactulose oral liq 20 gm/30 mL UDC PO (09:37)
[2022-11-06] MEDS: citalopram 20 mg Tablet PO (09:37)
[2022-11-06] MEDS: amoxicillin-clav 875-125 mg Tablet 1 TAB PO ×2 (09:37→17:30)
[2022-11-06] MEDS: levETIRAcetam 500 mg Tablet 750 MG PO ×2 (09:37→17:30)
[2022-11-06] MEDS: thiamine 100 mg Tablet PO (09:37)
[2022-11-06] MEDS: oxyCODONE 5 mg IR Tab/Cap PO ×2 (09:56→14:22)
--- NOTE | 2022-11-06 12:08 | P.PN_ITS ---
Subjective Subjective: Patient complaining of back pain 01/17 I did professor of counseling him regarding decreasing the intensity of the pain and not making 0 He is agreeable with peritoneal drain every third day or twice a week Awaiting placement [place] color urine in the bag Vitals/I&O/Wt Last Vital Signs Temp 97.7 F 11/06/22 11:29 Pulse 79 11/06/22 11:52 Resp 18 11/06/22 11:52 BP 100/62 11/06/22 11:29 Pulse Ox 97 11/06/22 11:52 O2 Del Method Nasal Cannula 11/06/22 11:52 O2 Flow Rate 1 11/06/22 11:52 11/05/22 11/06/22 11/06/22 22:59 06:59 14:59 Intake Total 710 / 1070 240 / 240 Output Total 325 / 325 2200 / 2525 Balance 385 / 745 -2200 / -1455 240 / 240 Weight last 48 hrs Weight 97.324 kg Weight 96.479 kg Physical Exam Narrative: Patient in right lateral position No active distress Facial acne improved Abdomen soft Peritoneal drain in place without any leakage Able to move extremities Aleman catheter with pink-colored urine S1, S2 Currently on 1.5 L oxygen Urinary Catheter Management: Aleman: Cath Placed During This Visit: yes Reason for Continuing Indwelling Catheter: Required Immobilization for Trauma or Surgery or Anesthesia Urinary Catheter Date of Insertion: 11/02/22 Urinary Catheter Time of Insertion: 06:43 Data 11/05/22 03:55 11/05/22 03:55 Micro: Microbiology 11/02/22 09:45 Mycobacterial Smear - Preliminary Body Fluids - Peritoneal 11/02/22 09:45 Gram Stain - Final Peritoneal Fluid Anaerobic Culture - Preliminary Body Fluid Culture - Final Enterococcus faecalis A&P Assessment and plan (1) Sepsis: (2) Schizoaffective disorder: (3) Essential (primary) hypertension: (4) Alcohol dependence: (5) Status post lumbar laminectomy: (6) Leg numbness: (7) Pneumonia: Plan Pneumonia: Concern for aspiration, I have changed antibiotics to Augmentin Ascites related to alcohol liver cirrhosis: Peritoneal drain twice a week for comfort Back pain: Target is to decrease intensity of the pain down to 4-6 Continue lactulose He should get Lasix and spironolactone as long as he is not dropping his blood pressure Hypoventilation related hypoxia requiring 1 L oxygen for now Full code Low-sodium diet Attestations Medical Necessity Statement*: Continue medical management Diagnoses Sepsis A41.9 Schizoaffective disorder F25.9 Essential (primary) hypertension I10 Alcohol dependence F10.20 Status post lumbar laminectomy Z98.890 Leg numbness R20.0 Pneumonia J18.9
[2022-11-06] MEDS: heparin 5,000 unit/mL INJ 1 mL 5000 UNIT SUBCUT (13:18)
[2022-11-07] VITALS (12 sets, daily range): BP systolic 81–106; BP diastolic 50–73; PULSE 69–109; RESP 14–19; TEMP 36.6–37.2; O2SAT 91–97
[2022-11-07] MEDS: paliperidone ER 6 mg Tablet PO (06:05)
[2022-11-07] MEDS: ipratropium-albuterol 3 mL Neb INHALATION ×2 (07:20→11:14)
[2022-11-07] MEDS: pantoprazole 40 mg SDV IVP (08:29)
[2022-11-07] MEDS: amoxicillin-clav 875-125 mg Tablet 1 TAB PO ×2 (08:30→17:25)
[2022-11-07] MEDS: lactulose oral liq 20 gm/30 mL UDC PO (08:31)
[2022-11-07] MEDS: levETIRAcetam 500 mg Tablet 750 MG PO ×2 (08:31→17:25)
[2022-11-07] MEDS: thiamine 100 mg Tablet PO (08:31)
[2022-11-07] MEDS: citalopram 20 mg Tablet PO (08:31)
--- NOTE | 2022-11-07 12:20 | PC.SOCIAL ---
IMM Updated Updated pt on IMM. No questions voiced. Provided pt a copy. Initialed, dated, & timed copy in chart.
[2022-11-07 12:21] LABS: Glucose Point of Care 111 mg/dL (70-110)
--- NOTE | 2022-11-07 12:39 | PM.PN ---
Subjective Subjective: Spoke with his Answered all of her question No overnight events Still complaining of back pain We will touch base with orthopedics to see if they want to reevaluate for any signs of worsening postoperative edema versus hematoma Recheck CBC tomorrow Aleman cath draining dark-colored urine Vitals/I&O/Wt Last Vital Signs Temp 97.9 F 11/07/22 12:00 Pulse 108 H 11/07/22 12:00 Resp 18 11/07/22 12:00 BP 106/73 11/07/22 12:00 Pulse Ox 96 11/07/22 12:00 O2 Del Method Nasal Cannula 11/07/22 11:28 O2 Flow Rate 1 11/07/22 11:17 11/06/22 11/07/22 11/07/22 22:59 06:59 14:59 Intake Total 580 / 1180 200 / 1380 Output Total 300 / 300 150 / 450 Balance 280 / 880 50 / 930 Weight last 48 hrs Weight 96.479 kg Weight 97.324 kg Physical Exam Narrative: ProteinPatient laying comfortably in his bed Abdomen less distended today nontender Currently on room air Awake and alert Answer my question appropriately Nonfocal neuro exam GCS 15 Patient seems a bit withdrawn and depressed Urinary Catheter Management: Aleman: Cath Placed During This Visit: yes Reason for Continuing Indwelling Catheter: Required Immobilization for Trauma or Surgery or Anesthesia Urinary Catheter Date of Insertion: 11/02/22 Urinary Catheter Time of Insertion: 06:43 Data 11/05/22 03:55 11/05/22 03:55 Micro: Microbiology 11/02/22 02:38 Blood Culture - Final Blood NO GROWTH AFTER 5 DAYS 11/02/22 02:31 Blood Culture - Final Blood NO GROWTH AFTER 5 DAYS 11/02/22 09:45 Gram Stain - Final Peritoneal Fluid Anaerobic Culture - Preliminary Body Fluid Culture - Final Enterococcus faecalis 11/02/22 09:45 Mycobacterial Smear - Preliminary Body Fluids - Peritoneal A&P Assessment and plan (1) Sepsis: (2) Pneumonia: (3) Essential (primary) hypertension: (4) Schizoaffective disorder: (5) Leg numbness: (6) Status post lumbar laminectomy: (7) Right foot drop: (8) Right sided weakness: (9) ALC (alcoholic liver cirrhosis): (10) COPD (chronic obstructive pulmonary disease): (11) Protein calorie malnutrition: Plan Postoperative edema versus hematoma Check CBC tomorrow Back pain well managed as of now Patient able to move his extremities Sepsis resolved Continue Augmentin for aspiration pneumonia Alcohol-related liver cirrhosis: Status post peritoneal drain in place which we will drain twice a week Awaiting placement updated Patient is awaiting placement for rehab Facial acne: Compensated Dark-colored urine related to liver abnormality: No active signs of UTI I will hold DVT prophylaxis for today checking CBC for tomorrow for possible postoperative hematoma Full code Depression: Continue citalopram Attestations Medical Necessity Statement*: Awaiting placement Diagnoses Sepsis A41.9 Pneumonia J18.9 Essential (primary) hypertension I10 Schizoaffective disorder F25.9 Leg numbness R20.0 Status post lumbar laminectomy Z98.890 Right foot drop M21.371 Right sided weakness R53.1 ALC (alcoholic liver cirrhosis) K70.30 COPD (chronic obstructive pulmonary disease) J44.9 Protein calorie malnutrition E46
[2022-11-07 17:06] LABS: Glucose Point of Care 116 mg/dL (70-110)
[2022-11-08] VITALS (14 sets, daily range): BP systolic 96–123; BP diastolic 59–83; PULSE 73–104; RESP 16–20; TEMP 36.7–36.9; O2SAT 93–98
[2022-11-08] MEDS: oxyCODONE 5 mg IR Tab/Cap PO (04:04)
--- NOTE | 2022-11-08 04:09 | PC.NURSE ---
Patient has a sauce stain on shoulder of gown. NURSE WOUND CARE and nurse has attempted to change patients gown several times tonight after calling laundry to [facility] closets.
[2022-11-08 04:47] LABS: Basophils % 0.1 %; Eosinophils # 0.2 10^3/uL (0.0-0.8); Eosinophils % 2.4 %; Hematocrit 36.9 % (42.0-52.0); Hemoglobin 12.2 g/dL (11.7-16.6); Lymphocytes # 1.2 10^3/uL (0.8-4.8); Lymphocytes % 15.1 %; Mean Corpuscular HGB Conc 33.1 g/dL (30.0-36.0); Mean Corpuscular Hemoglobin 32.9 pg (28.0-34.0); Mean Corpuscular Volume 99.5 fl (80-94); Mean Platelet Volume 10.3 fL (7.4-10.4); Monocytes # 0.6 10^3/uL (0.2-0.9); Monocytes % 7.8 %; Neutrophils # 5.66 10^3/uL (1.8-7.7); Neutrophils % 74.3 %; Nucleated Red Blood Cells % 0 %; Platelet Count 139 10^3/cmm (130-400); Red Blood Count 3.71 10^6/uL (4.1-5.3); Red Cell Distribution Width 13.9 % (12.1-15.1); White Blood Count 7.6 10^3/uL (4.0-10.0)
[2022-11-08] MEDS: paliperidone ER 6 mg Tablet PO (05:32)
--- NOTE | 2022-11-08 07:10 | PM.PN ---
Subjective Subjective: POD 8 Patient more alert this morning. Complains of back pain has not noticed much improvement of his leg weakness. Vitals/I&O/Wt Last Vital Signs Temp 98.2 F 11/08/22 04:00 Pulse 104 H 11/08/22 04:00 Resp 20 H 11/08/22 04:04 BP 123/83 11/08/22 04:00 Pulse Ox 93 11/08/22 04:04 O2 Del Method Nasal Cannula 11/08/22 04:00 O2 Flow Rate 2 11/08/22 04:00 11/07/22 11/08/22 11/08/22 22:59 06:59 14:59 Intake Total 260 / 620 200 / 820 Balance 260 / 620 200 / 820 Weight last 48 hrs Weight 212 lb 11.2 oz Physical Exam Narrative: Patient presents alert opens his eyes follows commands and communicates.? ? Mild tenderness around the incisional site with the incision appear to be healing nicely.? No signs of erythema or drainage.? No signs of infection.? Patient denies any fevers or chills. Continued Right Foot drop. 4/5 motor strength left lower extremity with negative straight leg raise bilaterally.? Calves are supple no medial thigh tenderness.? Pulses are 2+ at the dorsalis pedis and posterior tibial region.? Good capillary refill throughout normal sensation light touch both lower extremities. Urinary Catheter Management: Aleman: Cath Placed During This Visit: yes Reason for Continuing Indwelling Catheter: Required Immobilization for Trauma or Surgery or Anesthesia Urinary Catheter Date of Insertion: 11/02/22 Urinary Catheter Time of Insertion: 06:43 Data 11/08/22 04:30 11/05/22 03:55 Micro: Microbiology 11/02/22 09:45 Fungal Smear - Preliminary Peritoneal Fluid 11/02/22 09:45 Gram Stain - Final Peritoneal Fluid Anaerobic Culture - Preliminary Body Fluid Culture - Final Enterococcus faecalis 11/02/22 02:38 Blood Culture - Final Blood NO GROWTH AFTER 5 DAYS 11/02/22 02:31 Blood Culture - Final Blood NO GROWTH AFTER 5 DAYS A&P Assessment and plan (1) Status post lumbar laminectomy: Continue to work with physical therapy. Consider AFO for the right lower extremity. We will see him back in the office in 1 to 2 weeks for postoperative follow-up and wound check. Continue to mobilize with a walker. Nurses to change dressing today to Silver[place]. Continue incentive spirometry for pulmonary toilet. SCDs for mechanical DVT prophylaxis and defer to medicine team for anticoagulation. Okay from orthopedic standpoint to discharge to shelter facility when medically stable. (2) Right foot drop: (3) Right sided weakness: Attestations Medical Necessity Statement*: Defer to medical team Coding Level of Care Code Acute Code for Chg Fwd Diagnoses Status post lumbar laminectomy Z98.890 Right foot drop M21.371 Right sided weakness R53.1
[2022-11-08] MEDS: ipratropium-albuterol 3 mL Neb INHALATION ×3 (07:52→15:57)
[2022-11-08] MEDS: amoxicillin-clav 875-125 mg Tablet 1 TAB PO ×2 (08:28→18:14)
[2022-11-08] MEDS: thiamine 100 mg Tablet PO (08:28)
[2022-11-08] MEDS: levETIRAcetam 500 mg Tablet 750 MG PO ×2 (08:29→18:14)
[2022-11-08] MEDS: citalopram 20 mg Tablet PO (08:29)
[2022-11-08] MEDS: lactulose oral liq 20 gm/30 mL UDC PO (08:31)
--- NOTE | 2022-11-08 08:40 | PM.PN ---
Subjective Subjective: Hemoglobin has remained stable Patient is complaining of pain 9/10, back pain Appreciate Dr. Gallo's service recommendation I will start anticoagulating DVT prophylaxis today Patient is not complaining of new complaints today Vitals/I&O/Wt Last Vital Signs Temp 98.4 F 11/08/22 08:00 Pulse 84 11/08/22 08:00 Resp 18 11/08/22 08:00 BP 107/66 11/08/22 08:00 Pulse Ox 94 11/08/22 08:00 O2 Del Method Nasal Cannula 11/08/22 08:00 O2 Flow Rate 2 11/08/22 07:51 11/07/22 11/08/22 11/08/22 22:59 06:59 14:59 Intake Total 260 / 620 200 / 820 Balance 260 / 620 200 / 820 Weight last 48 hrs Weight 96.479 kg Physical Exam Narrative: No signs of hepatic encephalopathy Facial acne improved Currently on 2 L Hemodynamically stable Abdomen distended nontender Peritoneal drain in place Silver sorb dressing on his back Aleman catheter with dark-colored urine expected with liver failure Awake and alert Nonfocal neuro exam Urinary Catheter Management: Aleman: Cath Placed During This Visit: yes Reason for Continuing Indwelling Catheter: Required Immobilization for Trauma or Surgery or Anesthesia Urinary Catheter Date of Insertion: 11/02/22 Urinary Catheter Time of Insertion: 06:43 Data 11/08/22 04:30 11/05/22 03:55 Micro: Microbiology 11/02/22 09:45 Fungal Smear - Preliminary Peritoneal Fluid 11/02/22 09:45 Gram Stain - Final Peritoneal Fluid Anaerobic Culture - Preliminary Body Fluid Culture - Final Enterococcus faecalis A&P Assessment and plan (1) Schizoaffective disorder: (2) Sepsis: (3) Pneumonia: (4) Leg numbness: (5) Right foot drop: (6) ALC (alcoholic liver cirrhosis): Plan Continue Augmentin for aspiration pneumonia Sepsis: Resolved Postoperative edema/hematoma: Stable hemoglobin stable I will start him on DVT prophylaxis with heparin He also has SCDs Aleman catheter has dark urine expected with liver failure Pain management with oxycodone Patient is getting bowel movement 2-3 times a day Continue lactulose Awaiting placement Attestations Medical Necessity Statement*: Awaiting placement Diagnoses Schizoaffective disorder F25.9 Sepsis A41.9 Pneumonia J18.9 Leg numbness R20.0 Right foot drop M21.371 ALC (alcoholic liver cirrhosis) K70.30
[2022-11-09] VITALS (10 sets, daily range): BP systolic 101–130; BP diastolic 66–88; PULSE 77–106; RESP 16–19; TEMP 36.4–37.2; O2SAT 93–99
[2022-11-09] MEDS: paliperidone ER 6 mg Tablet PO (05:19)
[2022-11-09] MEDS: ipratropium-albuterol 3 mL Neb INHALATION ×3 (07:54→21:07)
[2022-11-09] MEDS: amoxicillin-clav 875-125 mg Tablet 1 TAB PO ×2 (08:36→17:19)
[2022-11-09] MEDS: thiamine 100 mg Tablet PO (08:36)
[2022-11-09] MEDS: citalopram 20 mg Tablet PO (08:36)
[2022-11-09] MEDS: levETIRAcetam 500 mg Tablet 750 MG PO ×2 (08:36→17:19)
--- NOTE | 2022-11-09 11:28 | P.PN_ITS ---
Subjective Subjective: This morning patient is doing slightly better Stating that he is still in pain which is controllable with opioids I did tell him about the interview that his about to take place today for his senior care placement He is not suicidal at this point Willing to go for the rehab Vitals/I&O/Wt Last Vital Signs Temp 97.5 F L 11/09/22 08:00 Pulse 106 H 11/09/22 08:00 Resp 19 H 11/09/22 08:00 BP 115/88 11/09/22 08:00 Pulse Ox 97 11/09/22 08:00 O2 Del Method Nasal Cannula 11/09/22 08:00 O2 Flow Rate 3 11/09/22 08:00 11/08/22 11/09/22 11/09/22 22:59 06:59 14:59 Intake Total 240 / 960 240 / 240 Output Total 700 / 700 100 / 800 Balance -460 / 260 -100 / 160 240 / 240 Weight last 48 hrs Weight 98.475 kg Physical Exam Narrative: Is under left lateral position Currently on room air Not suicidal Awake and alert Pleasant and cooperative during my evaluation Abdomen distended nontender Peritoneal drain in place without any active leakage Lower extremity edema Aleman catheter in place Urinary Catheter Management: Aleman: Cath Placed During This Visit: yes Reason for Continuing Indwelling Catheter: Other Urinary Catheter Date of Insertion: 11/02/22 Urinary Catheter Time of Insertion: 06:43 Data 11/08/22 04:30 11/05/22 03:55 Micro: Microbiology 11/02/22 09:45 Gram Stain - Final Peritoneal Fluid Anaerobic Culture - Preliminary Body Fluid Culture - Final Enterococcus faecalis A&P Assessment and plan (1) Sepsis: (2) Schizoaffective disorder: (3) Essential (primary) hypertension: (4) Pneumonia: (5) Leg numbness: (6) Status post lumbar laminectomy: (7) Right foot drop: (8) ALC (alcoholic liver cirrhosis): (9) Right sided weakness: Plan Sepsis: Resolved Currently on Augmentin for pneumonia Patient can be drained twice a week for his recurrent ascites Patient is not suicidal Status post recent back surgery Awaiting placement No change in medications today Continue Aleman catheter until the day of discharge He is on DVT prophylaxis with heparin which he has refused Attestations Medical Necessity Statement*: Continue medical management Diagnoses Sepsis A41.9 Schizoaffective disorder F25.9 Essential (primary) hypertension I10 Pneumonia J18.9 Leg numbness R20.0 Status post lumbar laminectomy Z98.890 Right foot drop M21.371 ALC (alcoholic liver cirrhosis) K70.30 Right sided weakness R53.1
--- NOTE | 2022-11-09 11:35 | PC.SOCIAL ---
Imm update Imm updated with patient at bedside. Copy of page 2 provided. Patient verbalized understanding. Copy in chart initialed, dated and timed.
--- NOTE | 2022-11-09 19:05 | PC.NURSE ---
Addendum entered by Priti Hope LPN 11/09/22 19:07: Dr. Damico notified. Original Note: Drainage Refusal: Pt refused to let nurse drain from PD drain. Notified doctor.
[2022-11-10] VITALS (11 sets, daily range): BP systolic 95–154; BP diastolic 59–87; PULSE 78–118; RESP 15–20; TEMP 36.4–37.2; O2SAT 93–99
[2022-11-10] MEDS: paliperidone ER 6 mg Tablet PO (05:51)
[2022-11-10] MEDS: ipratropium-albuterol 3 mL Neb INHALATION ×3 (07:31→19:39)
[2022-11-10] MEDS: citalopram 20 mg Tablet PO (09:33)
[2022-11-10] MEDS: levETIRAcetam 500 mg Tablet 750 MG PO ×2 (09:33→17:06)
[2022-11-10] MEDS: thiamine 100 mg Tablet PO (09:34)
[2022-11-10] MEDS: lactulose oral liq 20 gm/30 mL UDC PO (09:34)
[2022-11-10] MEDS: amoxicillin-clav 875-125 mg Tablet 1 TAB PO ×2 (09:34→17:06)
--- NOTE | 2022-11-10 12:30 | PC.NURSE ---
Patient's came out of room and asked for help situating patient in bed. Patient noted to be very distended and had bilateral lower extremity edema. Patient had been refusing to be drained. Talked with patient about the benefit of draining and making him more comfortable. Patient agreed. Spoke with Dr. Magallanes and got the verbal order to drain patient's pleural drain. Drained 4L off patient's abdomen. No noted complications and vitals remained WNL during procedure. at bedside. Call light in reach.
--- NOTE | 2022-11-10 13:22 | PC.NURSE ---
2700ml output from peritoneal drain.
--- NOTE | 2022-11-10 14:41 | PC.NURSE ---
Pt states that he may possibly leave with to spend time at home. Notified Dr. Magallanes. Case management speaks with pt. Pt and verbalize that he will stay in hospital until Saturday.
[2022-11-10] MEDS: oxyCODONE 5 mg IR Tab/Cap PO (19:48)
--- NOTE | 2022-11-10 21:16 | PM.PN ---
Subjective Subjective: Patient and spouse initially wanting to leave today. Was going to leave AMA per staff. Pt endorses abd distention and weakness. Denies fevers or chills. Agreeable to staying until Saturday at least. Medications: Reviewed: Yes Vitals/I&O/Wt Last Vital Signs Temp 98.0 F 11/10/22 19:43 Pulse 95 11/10/22 19:43 Resp 18 11/10/22 19:48 BP 107/71 11/10/22 19:43 Pulse Ox 93 11/10/22 19:48 O2 Del Method Nasal Cannula 11/10/22 19:43 O2 Flow Rate 2 11/10/22 19:43 11/10/22 11/10/22 11/10/22 06:59 14:59 22:59 Intake Total 960 / 960 480 / 1440 Output Total 300 / 900 2700 / 2700 Balance -300 / 180 -1740 / -1740 480 / -1260 Weight last 48 hrs Weight 100.97 kg Weight 98.475 kg Physical Exam Narrative: General: Patient is awake and alert. Frail appearing. Head: Normocephalic. Atraumatic. EOM intact. Neck: No JVD. Cardiovascular: RRR. No gallops. No murmurs. Lungs: Clear to auscultation, no use of accessory muscles, no crackles or wheezes. Skin: No jaundice. No rashes. Abdomen: Very distended. Normal bowel sounds, abdomen soft and nontender. Extremities: No cyanosis or clubbing. Musculoskeletal: Lower extremity weakness. Neurological: No myoclonus. Urinary Catheter Management: Aleman: Cath Placed During This Visit: yes Reason for Continuing Indwelling Catheter: Acute Urinary Retention or Obstruction Urinary Catheter Date of Insertion: 11/02/22 Urinary Catheter Time of Insertion: 06:43 Data 11/08/22 04:30 11/05/22 03:55 A&P Assessment and plan (1) Sepsis: (2) Schizoaffective disorder: (3) Essential (primary) hypertension: (4) Pneumonia: (5) Leg numbness: (6) Status post lumbar laminectomy: (7) Right foot drop: (8) ALC (alcoholic liver cirrhosis): (9) Right sided weakness: Plan Pneumonia with sepsis -Continue Augmentin Symptomatic ascites -Drain today Status post recent back surgery -Awaiting placement, but tried to leave AMA today, was redirectable for now DVT ppx: Heparin/refuses Code status: Full Attestations Medical Necessity Statement*: Pt requires ongoing hospitalized care as he is not safe for discharge. Coding Level of Care Code Acute Code for Chg Fwd Diagnoses Sepsis A41.9 Schizoaffective disorder F25.9 Essential (primary) hypertension I10 Pneumonia J18.9 Leg numbness R20.0 Status post lumbar laminectomy Z98.890 Right foot drop M21.371 ALC (alcoholic liver cirrhosis) K70.30 Right sided weakness R53.1
[2022-11-11] VITALS (7 sets, daily range): BP systolic 102–118; BP diastolic 62–74; PULSE 69–101; RESP 15–18; TEMP 36.8–37; O2SAT 94–98
[2022-11-11] MEDS: heparin 5,000 unit/mL INJ 1 mL 5000 UNIT SUBCUT (00:01)
--- NOTE | 2022-11-11 02:59 | PC.NURSE ---
pt exhibited ability to reposition self in bed without assist
[2022-11-11] MEDS: paliperidone ER 6 mg Tablet PO (06:00)
[2022-11-11] MEDS: ipratropium-albuterol 3 mL Neb INHALATION ×4 (07:24→15:14)
[2022-11-11] MEDS: thiamine 100 mg Tablet PO (09:12)
[2022-11-11] MEDS: citalopram 20 mg Tablet PO (09:12)
[2022-11-11] MEDS: amoxicillin-clav 875-125 mg Tablet 1 TAB PO ×2 (09:13→18:07)
[2022-11-11] MEDS: lactulose oral liq 20 gm/30 mL UDC PO (09:13)
[2022-11-11] MEDS: levETIRAcetam 500 mg Tablet 750 MG PO ×2 (09:13→18:07)
--- NOTE | 2022-11-11 11:02 | PC.SOCIAL ---
IMM Update pg 2 of IMM updated and reviewed w/ patient and his . Copy provided and Copy in chart dated and initialed.
--- NOTE | 2022-11-11 14:52 | USR_ITS ---
PROCEDURE INFORMATION: Exam: US Duplex Right Lower Extremity Veins, Limited Exam date and time: 11/11/2022 5:41 PM Age: 47 years old Clinical indication: Edema, localized; Lower extremity, right; Additional info: S/s: Increased edema with pain TECHNIQUE: Imaging protocol: Real-time duplex ultrasound of the right extremity with 2-D cormier scale, color Doppler flow and spectral waveform analysis including responses to compression and other maneuvers (when performed) with image documentation. Limited exam was focused on the right lower extremity veins. COMPARISON: CT abdomen pelvis wo con [id number] 10/13/2022 2:34 PM FINDINGS: Right deep veins: Unremarkable. The common femoral, femoral, proximal profunda femoral, popliteal, posterior tibial and peroneal veins are patent without thrombus. Normal Doppler waveforms. Normal compressibility and/or augmentation response. Right superficial veins: Unremarkable. Saphenofemoral junction is patent without thrombus. Soft tissues: Subcutaneous edema in the calf. US/[place] [id number] IMPRESSION: No sonographic evidence of deep vein thrombosis.
--- NOTE | 2022-11-11 17:30 | PM.PN ---
Subjective Subjective: Patient reports he feels pretty good today. His abdomen was drained yesterday. Reports less abdominal distention. He does endorse swelling and pain in his leg. Noted to refuse multiple doses of heparin during this stay. Denies fevers, chills, nausea or emesis. Reports he plans on going home tomorrow. Medications: Reviewed: Yes Vitals/I&O/Wt Last Vital Signs Temp 98.6 F 11/11/22 08:00 Pulse 101 H 11/11/22 15:15 Resp 16 11/11/22 15:15 BP 104/62 11/11/22 08:00 Pulse Ox 95 11/11/22 15:15 O2 Del Method Nasal Cannula 11/11/22 10:58 O2 Flow Rate 2 11/11/22 10:58 11/11/22 11/11/22 11/11/22 06:59 14:59 22:59 Intake Total 280 / 280 Output Total 200 / 2900 Balance -200 / -1400 280 / 280 Weight last 48 hrs Weight 100.97 kg Physical Exam Narrative: General: Patient is awake and alert. Frail appearing. Lying in bed. Head: Normocephalic. Atraumatic. EOMI. Neck: No JVD. Cardiovascular: RRR. No gallops. No murmurs. Lungs: Clear to auscultation, no use of accessory muscles, no crackles or wheezes. Skin: No jaundice. No rashes. Abdomen: Very distended. Normal bowel sounds, abdomen soft and nontender. Extremities: No cyanosis or clubbing. Musculoskeletal: Lower extremity weakness. Neurological: No myoclonus. Urinary Catheter Management: Aleman: Cath Placed During This Visit: yes Reason for Continuing Indwelling Catheter: Acute Urinary Retention or Obstruction Urinary Catheter Date of Insertion: 11/02/22 Urinary Catheter Time of Insertion: 06:43 Data 11/08/22 04:30 11/05/22 03:55 A&P Assessment and plan (1) Sepsis: (2) Schizoaffective disorder: (3) Essential (primary) hypertension: (4) Pneumonia: (5) Leg numbness: (6) Status post lumbar laminectomy: (7) Right foot drop: (8) ALC (alcoholic liver cirrhosis): (9) Right sided weakness: Plan Pneumonia with sepsis -Continue Augmentin -Continue aspiration precautions -Head of bed elevation Symptomatic ascites -Status post drain on 11/10, continue draining twice weekly and PRN -Strict I&Os -Daily weights -Consider starting diuretics this week Status post recent back surgery -Awaiting placement, but tried to leave AMA Saturday -Wants to go home with on Saturday, no HH set up over the weekend possible Leg pain/edema -Venous doppler US ordered DVT ppx: Heparin/refuses often Code status: Full Attestations Medical Necessity Statement*: Pt requires ongoing hospitalized care as he is not safe for discharge. Coding Level of Care Code Acute Code for Chg Fwd Diagnoses Sepsis A41.9 Schizoaffective disorder F25.9 Essential (primary) hypertension I10 Pneumonia J18.9 Leg numbness R20.0 Status post lumbar laminectomy Z98.890 Right foot drop M21.371 ALC (alcoholic liver cirrhosis) K70.30 Right sided weakness R53.1
[2022-11-12] VITALS (14 sets, daily range): BP systolic 106–139; BP diastolic 65–85; PULSE 91–115; RESP 17–22; TEMP 36.4–37.3; O2SAT 96–100
[2022-11-12] MEDS: paliperidone ER 6 mg Tablet PO (06:40)
[2022-11-12] MEDS: ipratropium-albuterol 3 mL Neb INHALATION ×4 (07:44→19:43)
[2022-11-12] MEDS: lactulose oral liq 20 gm/30 mL UDC PO (08:08)
[2022-11-12] MEDS: amoxicillin-clav 875-125 mg Tablet 1 TAB PO ×2 (08:08→18:14)
[2022-11-12] MEDS: thiamine 100 mg Tablet PO (08:08)
[2022-11-12] MEDS: citalopram 20 mg Tablet PO (08:08)
[2022-11-12] MEDS: levETIRAcetam 500 mg Tablet 750 MG PO ×2 (08:08→18:14)
[2022-11-12] MEDS: oxyCODONE 5 mg IR Tab/Cap PO ×2 (08:14→20:03)
--- NOTE | 2022-11-12 13:17 | PM.PN ---
Subjective Subjective: Patient was seen and examined this morning, has been afebrile, his other vitals have been reviewed. No labs have been done since 11/08. Patient wanted his Aleman catheter to be removed. Medications: Reviewed: Yes Medication Review Details: Generic Name Dose Route Start Last Admin Trade Name Freq PRN Reason Stop Dose Admin Albuterol/Ipratrop ium 3 ml 11/02/22 08:00 11/12/22 11:00 Ipratropium-Albu terol 3 Ml Neb INHALATION 3 ml QID.RESPIRATORY S CH Administration Amoxicillin/Clavul anate Potassium 1 tab 11/05/22 18:00 11/12/22 08:08 Amoxicillin-Clav 875-125 Mg Tablet PO 1 tab BID SAMANTA Administration Protocol Citalopram Hydrobr omide 20 mg 11/02/22 09:00 11/12/22 08:08 Citalopram 20 Mg Tablet PO 20 mg DAILY SAMANTA Administration Lactulose 20 gm 11/02/22 09:00 11/12/22 08:08 Lactulose Oral L iq 20 Gm/30 Ml Udc PO 20 gm DAILY SAMANTA Administration Levetiracetam 750 mg 11/02/22 09:00 11/12/22 08:08 Levetiracetam 50 0 Mg Tablet PO 750 mg BID SAMANTA Administration Oxycodone HCl 5 mg 11/02/22 09:06 11/12/22 08:14 Oxycodone 5 Mg I r Tab/Cap PO 5 mg Q4H PRN Administration MODERATE PAIN Paliperidone 6 mg 11/02/22 06:00 11/12/22 06:40 Paliperidone Er 6 Mg Tablet PO 6 mg QAM SAMANTA Administration Thiamine Mononitra te 100 mg 11/02/22 09:00 11/12/22 08:08 Thiamine 100 Mg Tablet PO 100 mg DAILY SAMANTA Administration Vitals/I&O/Wt Last Vital Signs Temp 97.6 F 11/12/22 08:00 Pulse 110 H 11/12/22 11:08 Resp 18 11/12/22 11:00 BP 137/80 11/12/22 08:00 Pulse Ox 98 11/12/22 11:00 O2 Del Method Nasal Cannula 11/12/22 11:00 O2 Flow Rate 2 11/12/22 11:00 06/04/23 06/05/23 06/05/23 22:59 06:59 14:59 Intake Total 120 / 400 360 / 360 Output Total 400 / 400 200 / 600 150 / 150 Balance -280 / 0 -200 / -200 210 / 210 Weight last 48 hrs Weight 96.57 kg Physical Exam Const: COMMON NORMALS: patient oriented x3 HENMT: COMMON NORMALS: normocephalic and atraumatic HEAD & SCALP: normocephalic and atraumatic Resp: COMMON NORMALS: normal respiratory effort, No retractions, No use of accessory muscles and clear to auscultation bilaterally EFFORT & INSPECTION: Yes symmetric chest movement AUSCULTATION: clear to auscultation bilaterally Cardio: COMMON NORMALS: regular rate, regular rhythm, S1 normal heart sound present, S2 normal heart sound present, No gallops present (Cardio), No murmurs present (Cardio), No rub (Cardio) and Peripheral pulses 2+ throughout RATE: regular rate RHYTHM: regular rhythm HEART SOUNDS: S1 normal heart sound present and S2 normal heart sound present PERIPHERAL PULSES: Peripheral pulses 2+ throughout GI: COMMON NORMALS: Normal to inspection, nondistended, normoactive bowel sounds present, Soft to palpation, non-tender, No hepatosplenomegaly present and no masses AUSCULTATION: Yes normoactive bowel sounds PALPATION: Yes Soft to palpation and Yes No hepatosplenomegaly present RECTAL EXAM: Yes deferred Extremity: COMMON NORMALS: no clubbing, cyanosis or edema and no pedal edema Neuro: COMMON NORMALS: patient oriented x3 Urinary Catheter Management: Aleman: Cath Placed During This Visit: yes, but has since been removed by the nurse Reason for Continuing Indwelling Catheter: Other Urinary Catheter Date of Insertion: 11/02/22 Urinary Catheter Time of Insertion: 06:43 Date Urinary Catheter Removed: 11/12/22 Time Urinary Catheter Discontinued: 09:42 Data 11/08/22 04:30 11/05/22 03:55 A&P Assessment and plan (1) Sepsis: (2) Schizoaffective disorder: (3) Essential (primary) hypertension: (4) Pneumonia: (5) Leg numbness: (6) Status post lumbar laminectomy: (7) Right foot drop: (8) ALC (alcoholic liver cirrhosis): (9) Right sided weakness: Plan Sepsis: Resolved Currently on Augmentin for pneumonia Patient can be drained twice a week for his recurrent ascites Patient is not suicidal Status post recent back surgery Awaiting placement He is on DVT prophylaxis with heparin which he has refused Attestations Medical Necessity Statement*: Awaiting safe discharge. Coding Level of Care Code Acute Code for Chg Fwd Diagnoses Sepsis A41.9 Schizoaffective disorder F25.9 Essential (primary) hypertension I10 Pneumonia J18.9 Leg numbness R20.0 Status post lumbar laminectomy Z98.890 Right foot drop M21.371 ALC (alcoholic liver cirrhosis) K70.30 Right sided weakness R53.1
--- NOTE | 2022-11-12 21:28 | PC.NURSE ---
Patient refuses to have head of bed at 30 degrees. Patient continually lowers head of bed.
[2022-11-13] VITALS (9 sets, daily range): BP systolic 91–143; BP diastolic 50–89; PULSE 70–117; RESP 16–18; TEMP 36.8–37; O2SAT 95–99
--- NOTE | 2022-11-13 02:55 | PC.NURSE ---
Patient requesting pleurx/jean claude drain to be drained. 3,000 ml removed.
--- NOTE | 2022-11-13 02:57 | PC.NURSE ---
When doing neuro assessment, patient states I can't lift my right leg. This nurse witnessed patient with his right leg crossed over his left leg and also witnessed patient move right leg while walking with walker.
[2022-11-13] MEDS: citalopram 20 mg Tablet PO (08:47)
[2022-11-13] MEDS: thiamine 100 mg Tablet PO (08:47)
[2022-11-13] MEDS: amoxicillin-clav 875-125 mg Tablet 1 TAB PO ×2 (08:47→17:57)
[2022-11-13] MEDS: levETIRAcetam 500 mg Tablet 750 MG PO ×2 (08:47→17:57)
[2022-11-13] MEDS: lactulose oral liq 20 gm/30 mL UDC PO (08:47)
[2022-11-13] MEDS: paliperidone ER 6 mg Tablet PO (08:47)
--- NOTE | 2022-11-13 11:18 | PC.SOCIAL ---
IMM updated Updated pt on IMM. No questions voiced. Provided pt a copy. Initialed, dated, & timed copy in chart.
[2022-11-13] MEDS: ipratropium-albuterol 3 mL Neb INHALATION ×2 (11:31→15:13)
--- NOTE | 2022-11-13 16:55 | PC.OT ---
OT tx attempted at this time. Pt is sleeping and at bedside reports he told me not to wake him up . Therapist requested encourage pt to sit up at edge of bed for evening meal when it arrives. She is agreeable. Will attempt OT tx again tomorrow.
--- NOTE | 2022-11-13 19:15 | PM.PN ---
Subjective Subjective: Patient was seen and examined this morning, no acute events. Medications: Reviewed: Yes Medication Review Details: Generic Name Dose Route Start Last Admin Trade Name Freq PRN Reason Stop Dose Admin Albuterol/Ipratrop ium 3 ml 11/02/22 08:00 11/12/22 11:00 Ipratropium-Albu terol 3 Ml Neb INHALATION 3 ml QID.RESPIRATORY S CH Administration Amoxicillin/Clavul anate Potassium 1 tab 11/05/22 18:00 11/12/22 08:08 Amoxicillin-Clav 875-125 Mg Tablet PO 1 tab BID SAMANTA Administration Protocol Citalopram Hydrobr omide 20 mg 11/02/22 09:00 11/12/22 08:08 Citalopram 20 Mg Tablet PO 20 mg DAILY SAMANTA Administration Lactulose 20 gm 11/02/22 09:00 11/12/22 08:08 Lactulose Oral L iq 20 Gm/30 Ml Udc PO 20 gm DAILY SAMANTA Administration Levetiracetam 750 mg 11/02/22 09:00 11/12/22 08:08 Levetiracetam 50 0 Mg Tablet PO 750 mg BID SAMANTA Administration Oxycodone HCl 5 mg 11/02/22 09:06 11/12/22 08:14 Oxycodone 5 Mg I r Tab/Cap PO 5 mg Q4H PRN Administration MODERATE PAIN Paliperidone 6 mg 11/02/22 06:00 11/12/22 06:40 Paliperidone Er 6 Mg Tablet PO 6 mg QAM SAMANTA Administration Thiamine Mononitra te 100 mg 11/02/22 09:00 11/12/22 08:08 Thiamine 100 Mg Tablet PO 100 mg DAILY SAMANTA Administration Vitals/I&O/Wt Last Vital Signs Temp 98.5 F 11/13/22 16:00 Pulse 117 H 11/13/22 16:00 Resp 18 11/13/22 16:00 BP 127/78 11/13/22 16:00 Pulse Ox 96 11/13/22 16:00 O2 Del Method Nasal Cannula 11/13/22 15:21 O2 Flow Rate 2 11/13/22 15:21 11/13/22 11/13/22 11/13/22 06:59 14:59 22:59 Intake Total 360 / 360 240 / 600 Output Total 3000 / 3150 Balance -3000 / -1830 360 / 360 240 / 600 Weight last 48 hrs Weight 49.714 kg Weight 96.57 kg Physical Exam Const: COMMON NORMALS: patient oriented x3 HENMT: COMMON NORMALS: normocephalic and atraumatic HEAD & SCALP: normocephalic and atraumatic Resp: COMMON NORMALS: normal respiratory effort, No retractions, No use of accessory muscles and clear to auscultation bilaterally EFFORT & INSPECTION: Yes symmetric chest movement AUSCULTATION: clear to auscultation bilaterally Cardio: COMMON NORMALS: regular rate, regular rhythm, S1 normal heart sound present, S2 normal heart sound present, No gallops present (Cardio), No murmurs present (Cardio), No rub (Cardio) and Peripheral pulses 2+ throughout RATE: regular rate RHYTHM: regular rhythm HEART SOUNDS: S1 normal heart sound present and S2 normal heart sound present PERIPHERAL PULSES: Peripheral pulses 2+ throughout GI: COMMON NORMALS: Normal to inspection, nondistended, normoactive bowel sounds present, Soft to palpation, non-tender, No hepatosplenomegaly present and no masses AUSCULTATION: Yes normoactive bowel sounds PALPATION: Yes Soft to palpation and Yes No hepatosplenomegaly present RECTAL EXAM: Yes deferred Extremity: COMMON NORMALS: no clubbing, cyanosis or edema and no pedal edema Neuro: COMMON NORMALS: patient oriented x3 Urinary Catheter Management: Aleman: Cath Placed During This Visit: yes, but has since been removed by the nurse Reason for Continuing Indwelling Catheter: Other Urinary Catheter Date of Insertion: 11/02/22 Urinary Catheter Time of Insertion: 06:43 Date Urinary Catheter Removed: 11/12/22 Time Urinary Catheter Discontinued: 09:42 Data 11/08/22 04:30 11/05/22 03:55 A&P Assessment and plan (1) Sepsis: (2) Schizoaffective disorder: (3) Essential (primary) hypertension: (4) Pneumonia: (5) Leg numbness: (6) Status post lumbar laminectomy: (7) Right foot drop: (8) ALC (alcoholic liver cirrhosis): (9) Right sided weakness: Plan Sepsis: Resolved Currently on Augmentin for pneumonia Patient can be drained twice a week for his recurrent ascites Patient is not suicidal Status post recent back surgery Awaiting placement He is on DVT prophylaxis with heparin which he has refused Attestations Medical Necessity Statement*: Awaiting placement. Coding Level of Care Code Acute Code for Chg Fwd Diagnoses Sepsis A41.9 Schizoaffective disorder F25.9 Essential (primary) hypertension I10 Pneumonia J18.9 Leg numbness R20.0 Status post lumbar laminectomy Z98.890 Right foot drop M21.371 ALC (alcoholic liver cirrhosis) K70.30 Right sided weakness R53.1
[2022-11-14] VITALS: BP 98/53; PULSE 76; RESP 16; TEMP 37.2; O2SAT 98
[2022-11-14 05:00] VITALS: BP 123/81; PULSE 98; RESP 18; TEMP 36.7; O2SAT 96
[2022-11-14] MEDS: ipratropium-albuterol 3 mL Neb INHALATION (07:30)
[2022-11-14 07:34] VITALS: PULSE 72; RESP 16; O2SAT 98
[2022-11-14 07:35] VITALS: BP 105/68; PULSE 84; RESP 16; TEMP 36.6; O2SAT 97
[2022-11-14] MEDS: amoxicillin-clav 875-125 mg Tablet 1 TAB PO (08:54)
[2022-11-14] MEDS: levETIRAcetam 500 mg Tablet 750 MG PO (08:54)
[2022-11-14] MEDS: thiamine 100 mg Tablet PO (08:54)
[2022-11-14] MEDS: lactulose oral liq 20 gm/30 mL UDC PO (08:54)
[2022-11-14] MEDS: citalopram 20 mg Tablet PO (08:54)
[2022-11-14] MEDS: paliperidone ER 6 mg Tablet PO (08:54)
--- NOTE | 2022-11-14 10:24 | XR_ITS ---
WS: [id number] Right ankle, AP and lateral views, 11/14/2022 Clinical Data: fall Comparison: None. Findings: No fractures or dislocations are seen. The ankle mortise is normal. The talus and calcaneus are unrem arkable. There is soft tissue swelling over the lateral malleolus. XR/XR ankle RT 2V [id number] Impression: Soft tissue swelling over lateral malleolus with no definite ankle fracture.
[2022-11-14 11:46] VITALS: BP 126/78; PULSE 73; RESP 16; O2SAT 98
--- NOTE | 2022-11-14 12:05 | PC.NURSE ---
patient requested nurse approximately 0915, he stated he wanted to leave AMA. I educated patient on importance of staying in hospital to continue care, and notified Dr. Howard. Patient was then sitting on the side of the bed around 1000 and slid to the floor. Dr. Howard came to see patient, verbal orders received for stat xray to right ankle. Xray was taken and patient asked again about leaving AMA. Dr. Howard notified again who sent medications to [facility]. Follow up appointment was made with Dr. Gallo's office for 11/22/22 at 1500. Patient and was educated on this as well as the importance of following up with PCP. They both verbalized understanding and patient's iv was discontinued. took patient out of facility in a wheelchair.
[2022-11-14 12:18] VITALS: BP 126/78; PULSE 73; RESP 16; O2SAT 98
--- NOTE | 2022-11-14 13:25 | P.PN_ITS ---
Subjective Subjective: Patient was seen earlier in the day. He had fallen upon getting up, and had reported to have injured his ankle on the right. He also stated he wanted to go AGAINST MEDICAL ADVICE. He was willing to wait until an x-ray was completed of the ankle. He reported he was otherwise doing okay, refused to go to the penitentiary, and just wanted to go home. He denies any homicidal or suicidal ideation. Medications: Reviewed: Yes Vitals/I&O/Wt Last Vital Signs Temp 97.8 F 11/14/22 07:35 Pulse 73 11/14/22 12:18 Resp 16 11/14/22 12:18 BP 126/78 11/14/22 12:18 Pulse Ox 98 11/14/22 12:18 O2 Del Method Nasal Cannula 11/14/22 11:46 O2 Flow Rate 2 11/14/22 07:34 11/13/22 11/14/22 11/14/22 22:59 06:59 14:59 Intake Total 240 / 600 120 / 120 Balance 240 / 600 120 / 120 Weight last 48 hrs Weight 49.442 kg Weight 49.714 kg Physical Exam Narrative: General exam is no apparent distress Neck is supple no lymphadenopathy thyromegaly Cardiovascular regular rate and rhythm without murmur Lungs clear Abdomen is soft positive bowel sounds Extremities no sinus clubbing edema, no significant deformity either ankle Urinary Catheter Management: Aleman: Cath Placed During This Visit: yes, but has since been removed by the nurse Reason for Continuing Indwelling Catheter: Other Urinary Catheter Date of Insertion: 11/02/22 Urinary Catheter Time of Insertion: 06:43 Date Urinary Catheter Removed: 11/12/22 Time Urinary Catheter Discontinued: 09:42 Data 11/08/22 04:30 11/05/22 03:55 Other Labs: X-ray of ankle negative for fracture. I reviewed this personally. A&P Assessment and plan (1) Sepsis: Resolved (2) Ascites due to alcoholic cirrhosis: His abdomen is getting drained, approximately every several days. A permanent drain is in place. (3) Pneumonia: He is to finish out 5 more days of Augmentin. No fever. Plan Ankle pain following fall Generalized weakness, alcoholism. He was to go to the nursing facility, for rehabilitation. He is now refusing this. He is not homicidal or suicidal. He is alert and oriented. Questions were asked with nurse present. He is reporting he is signing out AGAINST MEDICAL ADVICE. I convinced him to at least get his prescriptions filled. I think it is highly likely he will be readmitted soon Attestations Medical Necessity Statement*: Not applicable Diagnoses Sepsis A41.9 Ascites due to alcoholic cirrhosis K70.31 Pneumonia J18.9 Time Spent (min) 39
--- NOTE | 2022-11-14 13:29 | W.PM.EVENTAC ---
Event Note Event Note: Patient signed out AGAINST MEDICAL ADVICE, see progress note
== END 2022-11-14 11:40 | disposition left against medical advice (07) | DRG 871 ==
LOC: ER 05:04 → ICU 05:08 → MEDSURG 11-03 18:56
PROVIDERS: Internal Medicine; Admitting Provider Internal Medicine; Emergency Provider Emergency Medicine; PCP Nurse Practitioner Family; Visit Provider Internal Medicine
DX: A41.9 Sepsis, unspecified organism (principal); J69.0 Pneumonitis due to inhalation of food and vomit; E46 Unspecified protein-calorie malnutrition; Z68.1 Body mass index [BMI] 19.9 or less, adult; M96.89 Other intraoperative and postprocedural complications and disorders of the musculoskeletal system; F10.20 Alcohol dependence, uncomplicated; K70.31 Alcoholic cirrhosis of liver with ascites; M25.571 Pain in right ankle and joints of right foot; W18.30XA Fall on same level, unspecified, initial encounter; Z53.29 Procedure and treatment not carried out because of patient's decision for other reasons; F25.0 Schizoaffective disorder, bipolar type; E11.42 Type 2 diabetes mellitus with diabetic polyneuropathy; J44.9 Chronic obstructive pulmonary disease, unspecified; I10 Essential (primary) hypertension; E78.2 Mixed hyperlipidemia; M21.371 Foot drop, right foot; G40.909 Epilepsy, unspecified, not intractable, without status epilepticus; F17.210 Nicotine dependence, cigarettes, uncomplicated; R09.02 Hypoxemia; Z87.820 Personal history of traumatic brain injury; Z87.440 Personal history of urinary (tract) infections; Z79.84 Long term (current) use of oral hypoglycemic drugs; Z79.891 Long term (current) use of opiate analgesic; Z91.148 Patient's other noncompliance with medication regimen for other reason; Z75.1 Person awaiting admission to adequate facility elsewhere; Z98.890 Other specified postprocedural states; Y83.8 Other surgical procedures as the cause of abnormal reaction of the patient, or of later complication, without mention of misadventure at the time of the procedure; R20.0 Anesthesia of skin; R53.1 Weakness; M79.604 Pain in right leg
CPT/HCPCS: 36415; 36416; 51702; 71045; 72158; 73600; 80053; 80069; 80202; 80307; 80503; 81001; 82042; 82150; 82465; 82945; 82962; 83605; 83615; 83735; 83986; 84075; 84145; 84157; 84315; 84478; 84560; 85025; 85610; 86140; 86403; 87015; 87040; 87070; 87075; 87077; 87102; 87116; 87186; 87205; 87206; 87449; 87641; 87801; 88112; 88305; 89050; 92507; 92523; 92526; 92610; 93971; 94640; 94664; 96361; 96365; 96367; 96372; 96375; 97110; 97116; 97161; 97165; 97530; 97535; 97760; 99285; A9577; C9113; J1100; J1644; J2060; J2543; J3370; J3372; J7030; J7050

== ENCOUNTER 2022-11-14 17:01 | Observation (INO) | payer MEDICARE, MEDICAID, SELFPAY ==
[2022-11-14 17:06] VITALS: BP 111/62; PULSE 114; RESP 20; TEMP 36.8; O2SAT 97; BMI 34.9
--- NOTE | 2022-11-14 17:30 | ED_ITS ---
HPI - Back Pain/Injury General: Chief Complaint: Back Pain/Injury Stated Complaint: BACK PAIN Time Seen by Provider: 11/14/22 17:09 Source: patient Mode of arrival: EMS History of Present Illness: 47-year-old male who underwent L4-5 L5-S1 laminectomy with partial facetectomy. This was done on 52. Patient was discharged home on 525 he was readmitted on 52. He left AMA earlier today. He has a history of alcoholic liver cirrhosis as a peritoneal drain to relieve the thyroid. They have been making plans to get him to skilled care you have been here for an extended stay recently decided to leave AMA he had fallen earlier today his ankle x-ray after this fall was negative. Dr. Howard and tried to convince him not to leave however he chose to leave AMA. Patient admits to having drank since leaving. While at home he slipped off of a chair went from chair level height to the ground landed on his buttocks. He is now complaining of right leg pain rating his old records he also had right leg pain at the time of readmission most recently. No chest pain or shortness of breath. MD elicited complaint: back pain Pertinent past history: prior back pain Timing: constant Quality: sharp Location: lumbar spine Radiation: left leg below the knee and right leg below the knee Exacerbating factors: none Relieving factors: none Associated symptoms: Reports difficulty walking; Deny abdominal pain, arthralgias, chills, change in bowel habits, dysuria, fecal incontinence, fever(s), hematuria, myalgias, nausea, numbness, syncope, tingling/numbness/burning, urinary frequency, urinary urgency, vomiting or weakness Review of Systems Const: Denies: fever(s) or chills ENMT: Denies: throat pain, ear or mastoid pain, nasal discharge or nasal congestion Card: Denies: chest pain, palpitations, irregular heart rhythm or syncope Resp: Denies: dyspnea, productive cough or non-productive cough GI: Denies: abdominal pain, nausea, vomiting, fecal incontinence or change in bowel habits : Reports: oliguria; Denies: dysuria, urinary frequency, urinary urgency or hematuria Musc: Reports: back pain and extremity pain Skin/Breast: Denies: rash or pruritus Neuro: Reports: numbness in extremities, weakness in extremities and difficulty walking Psych: Reports: anxiety PFSH ED PFSH: Medical History Abdominal ascites Acne rosacea ALC (alcoholic liver cirrhosis) Alcohol dependence Bipolar disorder Cirrhosis of liver Controlled diabetes mellitus with hyperglycemia COPD (chronic obstructive pulmonary disease) DM neuropathy, painful Essential (primary) hypertension History of alcohol abuse daily use of hard liquor History of coronary artery disease History of CVA (cerebrovascular accident) 2010 Right side weakness due to a bleed History of memory loss History of schizophrenia Hyperammonemia Hypoxia Major depression, recurrent, chronic Mixed hyperlipidemia Nicotine dependence, cigarettes, uncomplicated Nicotine dependence, unspecified, uncomplicated Psoriasis Psychiatric care Right foot drop Schizoaffective disorder Schizophrenia Seizure disorder Suicidal ideation Traumatic brain injury UTI (urinary tract infection) Surgical History History of cardiac catheterization ~2014 done in [place], reports they discussed possible stent but he declined History of colonoscopy with polypectomy 2015 History of esophagogastroduodenoscopy (EGD) History of eye surgery Family History Other Dementia Diabetes Hypertension Lung disease Psychiatric illness Stroke Denies family history of Chronic kidney disease (CKD) Anesthesia complication Bleeding disorder Cancer Social History Smoking and tobacco status: current every day smoker cigarettes Packs smoked per day: 2.5 Second hand smoke exposure: Yes Alcohol intake: current Alcohol intake frequency: 3 or more drinks per day Alcohol type: hard liquor Substance/Drug Use: never Adopted: No Caregiver/support person: Yes Lives independently: No Household members: friend(s) and caregiver Housing: Manufactured/Mobile home Marital status: Number of children: 8 service: No Current occupational status: disabled Pets and animals: Yes Do you think of yourself as: Straight/Heterosexual Current gender identity: Male Physical Exam Const: GENERAL APPEARANCE: cooperative and comfortable HENMT: COMMON NORMALS: normocephalic, atraumatic and hearing grossly normal bilaterally HEAD & SCALP: normocephalic and atraumatic Resp: COMMON NORMALS: normal respiratory effort, No retractions, No use of accessory muscles and clear to auscultation bilaterally AUSCULTATION: clear to auscultation bilaterally Cardio: COMMON NORMALS: regular rate, regular rhythm and No murmurs present (Cardio) RATE: regular rate RHYTHM: regular rhythm GI: COMMON NORMALS: Soft to palpation and No hepatosplenomegaly present INSPECTION: Yes Anasarca, Yes abdominal distension and Yes Fluid wave present AUSCULTATION: Yes normoactive bowel sounds PALPATION: Yes Soft to palpation, No Tenderness to palpation present (GI), No Guarding due to palpation present (GI) and Yes No hepatosplenomegaly present PERCUSSION: dullness to percussion and Fluid wave present Back/Pelvis: OTHER: Ecchymosis in the area of the incision extending down into the buttocks no erythema wound well approximated no signs of infection no fluctuance on palpation. No swelling. Extremity: COMMON NORMALS: normal to inspection, capillary refill normal, no clubbing, cyanosis or edema, no calf tenderness and no pedal edema OTHER: Weakness with dorsiflexion on the right foot which is present previously sensation bilaterally both extremities is intact. Skin: COMMON NORMALS: no rashes or lesions noted GENERAL SKIN EXAM: no rashes or lesions noted Course Vital Signs: Vital signs: Vital Signs Temperature 98.6 F 11/15/22 04:00 Pulse Rate 103 H 11/15/22 04:00 Respiratory Rate 18 11/15/22 04:00 Blood Pressure 116/79 11/15/22 04:00 Pulse Oximetry 96 11/15/22 04:00 Oxygen Delivery Me thod Nasal Cannula 11/14/22 19:39 Oxygen Flow Rate 3 11/14/22 19:08 MDM - Back Pain/Injury Medical Decision Making Discussed with the patient as well as with Dr. Howard will place on observation. Clear discussion with the patient and his significant other that the plan on observation will be to have the patient placed in a skilled care facility which will mean intermediate level of care patient is agreeable to this at this time. Patient is being reevaluated by Dr. Howard. Orders written. Medical Records I reviewed the patient's medical records. Labs I reviewed the patient's lab results. 11/14/22 18:04 11/14/22 17:45 Radiology Impressions Lumbar Spine X-Ray 11/14/22 17:40 IMPRESSION: No fractures or spondylolisthesis of the lumbar spine. Degenerative changes, as noted above. Laboratory Results Sodium 135 mmol/L (136-145) L 11/14/22 17:45 Potassium 4.6 mmol/L (3.5-5.1) 11/14/22 17:45 Chloride 105 mmol/L (98-107) 11/14/22 17:45 Carbon Dioxide 21 mmol/L (22-29) L 11/14/22 17:45 Anion Gap 13.6 (5-19) 11/14/22 17:45 BUN 3 mg/dL (6-20) L 11/14/22 17:45 Creatinine 0.4 mg/dL (0.7-1.2) L 11/14/22 17:45 GFR Calculation 228.6 mL/min (90-130) H 11/14/22 17:45 Glucose 82 mg/dL (65-115) 11/14/22 17:45 Calculated Osmolality 276 mOsm/kg (285-295) L 11/14/22 17:45 Calcium 8.1 mg/dL (8.5-10.5) L 11/14/22 17:45 Total Bilirubin 1.8 mg/dL (0.15-1.2) H 11/14/22 17:45 AST 37 U/L (0-40) 11/14/22 17:45 ALT 19 U/L (0-41) 11/14/22 17:45 Alkaline Phosphatase 58 U/L (40-130) 11/14/22 17:45 Total Protein 5.2 g/dL (6.6-8.7) L 11/14/22 17:45 Albumin 2.2 g/dL (3.5-5.2) L 11/14/22 17:45 Globulin 3.0 g/dL (1.3-4.6) 11/14/22 17:45 Discharge Plan Discharge Patient Disposition: Admitted As Inpatient Admit Provider: Brandon Howard Clinical Impression: Status post lumbar laminectomy, Leg numbness, Right foot drop, Ascites due to alcoholic cirrhosis, ALC (alcoholic liver cirrhosis), Alcohol dependence, COPD (chronic obstructive pulmonary disease) Condition: Stable Coding Level of Care Code 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
--- NOTE | 2022-11-14 17:40 | XRR_ITS ---
PROCEDURE INFORMATION: Exam: XR Lumbosacral Spine Exam date and time: 11/14/2022 5:56 PM Age: 47 years old Clinical indication: Low back pain TECHNIQUE: Imaging protocol: Radiologic exam of the lumbosacral spine. Views: 2 or 3 views. AP Lateral and Coned down lateral COMPARISON: MR lumbar spine wo/w con [id number] 11/02/2022 3:16 AM FINDINGS: Bones/joints: There are 5 nonrib-bearing lumbar-type vertebrae. No radiographically evident fracture or subluxation. The spinous processes and transverse processes appear unremarkable. Mild L4-L5 and [id number] L5-S1 disc space narrowing is seen, suggestive of degenerative disc disease change. Moderate degenerative facet disease changes are seen in the lower lumbar region. Moderate bilateral sacroiliac joint degenerative changes are seen. Soft tissues: Paraspinal soft tissues are unremarkable. Artifact is seen on the AP view in the pelvis region, which limits evaluation. Notes: If there is further concern or neurological abnormalities on clinical exam, CT or MRI of the lumbar spine may be performed for complete assessment. XR/XR lumbar spine 2-3V* [id number] IMPRESSION: No fractures or spondylolisthesis of the lumbar spine. Degenerative changes, as noted above.
--- NOTE | 2022-11-14 18:00 | PM.HP ---
Providers/Chief Complaint Admitting Physician: Brandon Howard MD Primary Care Provider: YENI Perez Chief Complaint: BACK PAIN History of Present Illness Reinaldo Flores is a 47 year old male awaiting nursing facility placement, recently hospitalized for pneumonia, sepsis, weakness who went AMA earlier in the day. He had fallen at the hospital, and had some x-rays of his ankle. He reports he got home, drank about half a glass of vodka, fell in the bathroom. States he hit his back. Did not hit his head. He reports he realizes he is weak, needs to go to a nursing facility for rehabilitation. He denies any suicidal or homicidal ideation. Please see progress note done earlier in the day. He had a recent back surgery, on October 31, secondary to herniated disc and right foot drop. Review of Systems Const: Reports: other (No new symptomatology since from this morning); Denies: fever(s) Medications/Allergies Home Medications Medication Instructions Recorded Confirmed Last Taken Type paliperidone palmitate 234 mg/1.5 234 mg (1.5 mL) IM Q30D #1.5 mL 08/10/22 11/02/22 09/28/22 Rx mL intramuscular syringe (Invega Sustenna) lactulose 20 gram/30 mL oral 20 g (30 mL) PO DAILY #2,880 mL 10/12/22 11/02/22 Unknown Rx solution thiamine HCl (vitamin B1) 100 mg 100 mg PO DAILY #90 tabs 10/12/22 11/02/22 Unknown Rx tablet metformin 500 mg tablet,extended 500 mg PO BID PRN unknown 10/13/22 11/02/22 Unknown History release 24 hr citalopram 20 mg tablet 20 mg PO DAILY PRN unknown 11/02/22 11/02/22 Unknown History furosemide 20 mg tablet (Lasix) 20 mg PO DAILY PRN Edema 11/02/22 11/02/22 Unknown History paliperidone palmitate 156 mg/mL See Rx Instructions .Route .COMPLEX 11/02/22 11/02/22 2 Months Ago History intramuscular syringe (Invega ~09/02/22 Sustenna) amoxicillin 875 mg-potassium 1 tab PO BID #10 tabs 11/14/22 Unknown Rx clavulanate 125 mg tablet spironolactone 25 mg tablet 25 mg PO DAILY #30 tabs 11/14/22 Unknown Rx (Aldactone) Allergies Allergy/AdvReac Type Severity Reaction Status Date / Time clozapine [From Clozaril] AdvReac Severe Lowered Verified 11/14/22 17:11 his WBC he says divalproex sodium AdvReac Severe swelling Verified 11/14/22 17:11 [From Depakote] haloperidol [From Haldol] AdvReac Severe swelling Verified 11/14/22 17:11 nitroglycerin AdvReac Severe Stopped Verified 11/14/22 17:11 heart Bee stings Allergy Severe Swelling & Uncoded 11/14/22 17:11 breathing problems, Anaphylactic shock PFSH Acute PFSH: Medical History Abdominal ascites Acne rosacea ALC (alcoholic liver cirrhosis) Alcohol dependence Bipolar disorder Cirrhosis of liver Controlled diabetes mellitus with hyperglycemia COPD (chronic obstructive pulmonary disease) DM neuropathy, painful Essential (primary) hypertension History of alcohol abuse daily use of hard liquor History of coronary artery disease History of CVA (cerebrovascular accident) 2010 Right side weakness due to a bleed History of memory loss History of schizophrenia Hyperammonemia Hypoxia Major depression, recurrent, chronic Mixed hyperlipidemia Nicotine dependence, cigarettes, uncomplicated Nicotine dependence, unspecified, uncomplicated Psoriasis Psychiatric care Right foot drop Schizoaffective disorder Schizophrenia Seizure disorder Suicidal ideation Traumatic brain injury UTI (urinary tract infection) Surgical History History of cardiac catheterization ~2014 done in [place], reports they discussed possible stent but he declined History of colonoscopy with polypectomy 2015 History of esophagogastroduodenoscopy (EGD) History of eye surgery Family History Other Dementia Diabetes Hypertension Lung disease Psychiatric illness Stroke Denies family history of Chronic kidney disease (CKD) Anesthesia complication Bleeding disorder Cancer Social History Smoking and tobacco status: current every day smoker cigarettes Packs smoked per day: 2.5 Second hand smoke exposure: Yes Alcohol intake: current Alcohol intake frequency: 3 or more drinks per day Alcohol type: hard liquor Substance/Drug Use: never Adopted: No Caregiver/support person: Yes Lives independently: No Household members: friend(s) and caregiver Housing: Manufactured/Mobile home Marital status: Number of children: 8 service: No Current occupational status: disabled Pets and animals: Yes Do you think of yourself as: Straight/Heterosexual Current gender identity: Male Vitals/I&O/Wt Last Vital Signs Temp 98.2 F 11/14/22 17:06 Pulse 114 H 11/14/22 17:06 Resp 20 H 11/14/22 17:06 BP 111/62 11/14/22 17:06 Pulse Ox 97 11/14/22 17:06 O2 Del Method Nasal Cannula 11/14/22 17:06 O2 Flow Rate 3 11/14/22 17:06 Weight last 48 hrs Weight 104.326 kg Physical Exam Narrative: General exam no distress Neck is supple Cardiovascular regular rate and rhythm without murmur Lungs clear Abdomen is soft, ascites noted. No specific tenderness. Back demonstrates some bruising in his lower back Extremities trace bilateral edema, foot drop is noted on the right. Data 11/14/22 17:45 Other Labs: CBC, CMP, x-ray of lumbar spine has been ordered Urinalaysis ordered A&P Assessment and plan (1) Weakness: Observation Therapy consultations Continue to await intermediate placement He is not safe to take care of himself at home secondary to his severe weakness, multiple falls. (2) Status post lumbar laminectomy: Orthopedic spine surgery has been notified and they will evaluate (3) Pneumonia: Initiate Augmentin for 5 more days. (4) ALC (alcoholic liver cirrhosis): Patient with history of alcoholism, ascites. We will arrange for drainage of ascites probably in the next 24 hours. Plan Diabetes mellitus. His blood sugars have been relatively normal. His A1c is normal. No sliding scale at this point. Other medical problems as outlined in past medical history Full code Heparin for DVT prophylaxis Attestations Medical Necessity Statement*: Observation status, awaiting placement Diagnoses Weakness R53.1 Status post lumbar laminectomy Z98.890 Pneumonia J18.9 ALC (alcoholic liver cirrhosis) K70.30 Time Spent (min) 35
[2022-11-14 18:07] LABS: Alanine Aminotransferase 19 U/L (0-41); Albumin Level 2.2 g/dL (3.5-5.2); Alkaline Phosphatase 58 U/L (40-130); Aspartate Amino Transferase 37 U/L (0-40); Blood Urea Nitrogen 3 mg/dL (6-20); Calcium 8.1 mg/dL (8.5-10.5); Carbon Dioxide 21 mmol/L (22-29); Chloride 105 mmol/L (98-107); Glomerular Filtration Rate 228.6 mL/min (90-130); Glucose 82 mg/dL (65-115); Osmolality Calculated 276 mOsm/kg (285-295); Sodium 135 mmol/L (136-145); Total Bilirubin 1.8 mg/dL (0.15-1.2); Total Protein 5.2 g/dL (6.6-8.7)
[2022-11-14 18:17] LABS: Basophils % 0.6 %; Eosinophils # 0.1 10^3/uL (0.0-0.8); Eosinophils % 1.3 %; Hematocrit 34.6 % (42.0-52.0); Hemoglobin 11.4 g/dL (11.7-16.6); Lymphocytes # 0.9 10^3/uL (0.8-4.8); Lymphocytes % 15.3 %; Mean Corpuscular HGB Conc 32.9 g/dL (30.0-36.0); Mean Corpuscular Hemoglobin 33.5 pg (28.0-34.0); Mean Corpuscular Volume 101.8 fl (80-94); Mean Platelet Volume 9.5 fL (7.4-10.4); Monocytes # 0.7 10^3/uL (0.2-0.9); Monocytes % 10.7 %; Neutrophils # 4.42 10^3/uL (1.8-7.7); Neutrophils % 71.8 %; Nucleated Red Blood Cells % 0 %; Platelet Count 157 10^3/cmm (130-400); Red Cell Distribution Width 14.4 % (12.1-15.1); White Blood Count 6.2 10^3/uL (4.0-10.0)
[2022-11-14 18:18] LABS: Anion Gap 13.6 (5-19); Potassium 4.6 mmol/L (3.5-5.1)
[2022-11-14 19:08] VITALS: BP 122/77; PULSE 106; O2SAT 97
[2022-11-14 19:45] VITALS: BP 115/76; PULSE 103; RESP 20; TEMP 37.6; O2SAT 96
[2022-11-14] MEDS: amoxicillin-clav 875-125 mg Tablet 1 TAB PO (20:19)
[2022-11-14 20:20] VITALS: RESP 17
[2022-11-14] MEDS: heparin 5,000 unit/mL INJ 1 mL 5000 UNIT SUBCUT (20:20)
[2022-11-14] MEDS: morphine 4 mg/mL SDV 1 mL 2 MG IVP (20:20)
[2022-11-14 21:13] LABS: Glucose Point of Care 85 mg/dL (70-110)
[2022-11-15] VITALS (8 sets, daily range): BP systolic 92–116; BP diastolic 50–79; PULSE 76–103; RESP 16–20; TEMP 36.8–37.6; O2SAT 92–98
[2022-11-15] MEDS: acetaminophen 325 mg Tablet 650 MG PO (03:00)
--- NOTE | 2022-11-15 03:02 | PC.NURSE ---
at 0220, nurse and vp of product standing outside patient door to allow him privacy to urinate in urinal, assisting him, she comes to door and says he shook himself off the bed, patient states i slid off bed landed on my butt denies any injury, denies hitting head, no injuries noted. Patient prior to this approx 15 minutes earlier, had some shaking spells, lasting only a few seconds, states he is having seizures patient responds to painful stimuli during episode and immediately alert/oriented once he stops shaking, vs wnl's. notified, recieved order for tylenol which patient request d/t having a MYERS, which he states he has had a MYERS all day Now sitting up in bed, drinking chicken broth that he requested immediately after assisting him up off floor. remains at bedside.
[2022-11-15 03:46] LABS: Glucose Urine UA Norm (Normal); Protein Urine Trace (Negative); Urine Color Orange (Yellow); pH Urine 6 (5-7)
[2022-11-15 03:47] LABS: Add Urine Microscopic? YES; Bilirubin Urine 1+ (Negative); Blood Urine Neg (Negative); Ketones Urine 1+ (Negative); Leukocyte Esterase Urine Trace (Negative); Nitrate Urine Negative (Negative); Urobilinogen Urine 4 mg/dL (Negative)
[2022-11-15 03:48] LABS: Bacteria Urine 1+ /hpf; Mucus Urine 3+ /hpf; WBC Urine 0-4 /hpf (0-5)
[2022-11-15 03:49] LABS: Add Urine Culture? No
--- NOTE | 2022-11-15 06:30 | PC.NURSE ---
2700 cc drained via pleurix drains from abdomen, tolerated well.
[2022-11-15 06:38] LABS: Glucose Point of Care 98 mg/dL (70-110)
[2022-11-15] MEDS: spironolactone 25 mg Tablet PO (08:32)
[2022-11-15] MEDS: thiamine 100 mg Tablet PO (08:32)
[2022-11-15] MEDS: heparin 5,000 unit/mL INJ 1 mL 5000 UNIT SUBCUT ×2 (08:33→19:45)
[2022-11-15] MEDS: lactulose oral liq 20 gm/30 mL UDC PO (08:33)
[2022-11-15] MEDS: citalopram 20 mg Tablet PO (08:33)
[2022-11-15] MEDS: morphine 4 mg/mL SDV 1 mL 2 MG IVP (08:50)
--- NOTE | 2022-11-15 09:42 | PM.CONSULT ---
Providers/Reason For Consult Consulting Physician/Specialty*: hospitalist Reason for Consult*: back pain and left leg pain Attending Physician: Brandon Howard MD Primary Care Provider: YENI Perez History of Present Illness History of Present Illness Reinaldo Flores is a 47 year old male patient had surgery back on 10/31/2022 for a right foot drop patient has stenosis at L4-5 L5-S1. This point patient left the hospital AMA yesterday on 11/14/2022 currently fell hurt his ankle and then fell again on his back he came to the hospital said that he was having the same symptoms but on the left leg as he had in the right leg. This point x-rays reviewed I do not see any evidence of any fractures. Review of Systems Const: Denies: fever(s) or chills ENMT: Denies: throat pain, ear or mastoid pain, nasal discharge or nasal congestion Card: Denies: chest pain, palpitations, irregular heart rhythm or syncope Resp: Denies: dyspnea, productive cough or non-productive cough GI: Denies: abdominal pain, nausea, vomiting, fecal incontinence or change in bowel habits : Reports: oliguria; Denies: dysuria, urinary frequency, urinary urgency or hematuria Musc: Reports: back pain and extremity pain Skin/Breast: Denies: rash or pruritus Neuro: Reports: numbness in extremities, weakness in extremities and difficulty walking Psych: Reports: anxiety Medications/Allergies Home Medications Medication Instructions Recorded Confirmed Last Taken Type lactulose 20 gram/30 mL oral 20 g (30 mL) PO DAILY #2,880 mL 10/12/22 11/15/22 Unknown Rx solution metformin 500 mg tablet,extended 500 mg PO BID 10/13/22 11/15/22 Unknown History release 24 hr citalopram 20 mg tablet 20 mg PO DAILY 11/02/22 11/15/22 Unknown History furosemide 20 mg tablet (Lasix) 20 mg PO DAILY 11/02/22 11/15/22 Unknown History paliperidone palmitate 156 mg/mL See Rx Instructions .Route .COMPLEX 11/02/22 11/15/22 2 Months Ago History intramuscular syringe (Invega ~09/02/22 Sustenna) amoxicillin 875 mg-potassium 1 tab PO BID #10 tabs 11/14/22 11/15/22 Unknown Rx clavulanate 125 mg tablet acetaminophen 325 mg capsule 650 mg PO QID PRN Pain 11/15/22 11/15/22 Unknown History spironolactone 50 mg tablet 50 mg PO DAILY 11/15/22 11/15/22 Unknown History Allergies Allergy/AdvReac Type Severity Reaction Status Date / Time clozapine [From Clozaril] AdvReac Severe Lowered Verified 11/14/22 17:11 his WBC he says divalproex sodium AdvReac Severe swelling Verified 11/14/22 17:11 [From Depakote] haloperidol [From Haldol] AdvReac Severe swelling Verified 11/14/22 17:11 nitroglycerin AdvReac Severe Stopped Verified 11/14/22 17:11 heart Bee stings Allergy Severe Swelling & Uncoded 11/14/22 17:11 breathing problems, Anaphylactic shock Current Medications Generic Name Dose Route Start Last Admin Trade Name Freq PRN Reason Stop Dose Admin Citalopram Hydrobromide 20 mg 11/15/22 09:00 11/15/22 08:33 Citalopram 20 Mg Tablet PO 20 mg DAILY SAMANTA Administration Heparin Sodium (Porcine) 5,000 unit 11/14/22 20:00 11/15/22 08:33 Heparin 5,000 Unit/Ml Inj 1 Ml SUBCUT 5,000 unit Q12H SAMANTA Administration Lactulose 20 gm 11/15/22 09:00 11/15/22 08:33 Lactulose Oral Liq 20 Gm/30 Ml Udc PO 20 gm DAILY SAMANTA Administration Morphine Sulfate 2 mg 11/14/22 19:38 11/15/22 08:50 Morphine 4 Mg/Ml Sdv 1 Ml IVP 2 mg Q4H PRN Administration SEVERE PAIN Spironolactone 25 mg 11/15/22 09:00 11/15/22 08:32 Spironolactone 25 Mg Tablet PO 25 mg DAILY SAMANTA Administration Thiamine Mononitrate 100 mg 11/15/22 09:00 11/15/22 08:32 Thiamine 100 Mg Tablet PO 100 mg DAILY SAMANTA Administration PFSH Acute PFSH: Medical History Abdominal ascites Acne rosacea ALC (alcoholic liver cirrhosis) Alcohol dependence Bipolar disorder Cirrhosis of liver Controlled diabetes mellitus with hyperglycemia COPD (chronic obstructive pulmonary disease) DM neuropathy, painful Essential (primary) hypertension History of alcohol abuse daily use of hard liquor History of coronary artery disease History of CVA (cerebrovascular accident) 2009 Right side weakness due to a bleed History of memory loss History of schizophrenia Hyperammonemia Hypoxia Major depression, recurrent, chronic Mixed hyperlipidemia Nicotine dependence, cigarettes, uncomplicated Nicotine dependence, unspecified, uncomplicated Psoriasis Psychiatric care Right foot drop Schizoaffective disorder Schizophrenia Seizure disorder Suicidal ideation Traumatic brain injury UTI (urinary tract infection) Surgical History History of cardiac catheterization ~2014 done in [place], reports they discussed possible stent but he declined History of colonoscopy with polypectomy 2015 History of esophagogastroduodenoscopy (EGD) History of eye surgery Family History Other Dementia Diabetes Hypertension Lung disease Psychiatric illness Stroke Denies family history of Chronic kidney disease (CKD) Anesthesia complication Bleeding disorder Cancer Social History Smoking and tobacco status: current every day smoker cigarettes Packs smoked per day: 2.5 Second hand smoke exposure: Yes Alcohol intake: current Alcohol intake frequency: 3 or more drinks per day Alcohol type: hard liquor Substance/Drug Use: never Adopted: No Caregiver/support person: Yes Lives independently: No Household members: friend(s) and caregiver Housing: Manufactured/Mobile home Marital status: Number of children: 8 service: No Current occupational status: disabled Pets and animals: Yes Do you think of yourself as: Straight/Heterosexual Current gender identity: Male Vitals/I&O/Wt Last Vital Signs Temp 99.0 F 11/15/22 08:00 Pulse 92 11/15/22 08:00 Resp 20 H 11/15/22 08:50 BP 115/71 11/15/22 08:00 Pulse Ox 97 11/15/22 08:00 O2 Del Method Nasal Cannula 11/15/22 08:00 O2 Flow Rate 3 11/15/22 08:00 11/14/22 11/15/22 11/15/22 22:59 06:59 14:59 Intake Total 240 / 240 720 / 960 120 / 120 Output Total 250 / 250 Balance 240 / 240 470 / 710 120 / 120 Weight last 48 hrs Weight 230 lb Physical Exam Narrative: Patient is in bed there is another person in bed with him. At this point he is continuously moving his left ankle up and down. Data 11/14/22 18:04 11/14/22 17:45 A&P Assessment and plan (1) Status post lumbar laminectomy: Patient is claiming to have similar symptoms to the right side however patient is able to dorsiflex and plantarflex his left foot. This point patient is due to follow-up in the clinic in 4 weeks. We will see him at the clinic in 4 weeks. Coding Level of Care Code Acute Code for Chg Fwd Diagnoses Status post lumbar laminectomy Z98.890
[2022-11-15 10:48] LABS: Glucose Point of Care 107 mg/dL (70-110)
--- NOTE | 2022-11-15 11:04 | PM.PN ---
Subjective Subjective: Reinaldo is back hurts. He feels like his left foot is numb. Medications: Reviewed: Yes Vitals/I&O/Wt Last Vital Signs Temp 99.0 F 11/15/22 08:00 Pulse 92 11/15/22 08:00 Resp 20 H 11/15/22 08:50 BP 115/71 11/15/22 08:00 Pulse Ox 97 11/15/22 08:00 O2 Del Method Nasal Cannula 11/15/22 08:00 O2 Flow Rate 3 11/15/22 08:00 11/14/22 11/15/22 11/15/22 22:59 06:59 14:59 Intake Total 240 / 240 720 / 960 120 / 120 Output Total 250 / 250 Balance 240 / 240 470 / 710 120 / 120 Weight last 48 hrs Weight 104.326 kg Physical Exam Narrative: General exam no distress Neck is supple Cardiovascular regular rate and rhythm without murmur Lungs clear Abdomen is soft, ascites noted. Drain noted. No specific tenderness. Extremities trace bilateral edema, foot drop is noted on the right. There is no foot drop on the left Data 11/14/22 18:04 11/14/22 17:45 A&P Assessment and plan (1) Weakness: Continue observation Appreciate therapy consultations Continue to await usp placement He is not safe to take care of himself at home secondary to his severe weakness, multiple falls. (2) Status post lumbar laminectomy: Orthopedic spine surgery has been notified and they will evaluate. I notified them again today (3) Pneumonia: Continue Augmentin for 5 more days. (4) ALC (alcoholic liver cirrhosis): Patient with history of alcoholism, ascites. We will arrange for drainage of ascites probably in the next 24 hours. Plan Diabetes mellitus. His blood sugars have been relatively normal. His A1c is normal. No sliding scale at this point. Other medical problems as outlined in past medical history Full code Heparin for DVT prophylaxis Attestations Medical Necessity Statement*: Awaiting placement Diagnoses Weakness R53.1 Status post lumbar laminectomy Z98.890 Pneumonia J18.9 ALC (alcoholic liver cirrhosis) K70.30 Time Spent (min) 15
--- NOTE | 2022-11-15 11:09 | PC.CHAP ---
Pastoral Care Encounter/Spiritual Assessment Type of Contact [] Declined balance truing inspector visit [] Patient/Family/Request visit [] Outpatient visit [x] Follow-up visit [] Physician referral [] Code/Alert [x] Routine visit [] Staff referral [] Actively dying [] Patient sleeping [] Family support [] [] Out of room [] Palliative care [] [x] Receiving care in room [] Pre-surgical visit [] Trauma [] Long length of stay [] ICU visit [] Other: Relational/Emotional Strength [] Patient feels connected with others/family/visitors/staff [] Distress [] Loneliness/isolation [] Abandonment Spirituality of Patient [] Person of Cecilia [] Attends Muslim of their Cecilia [] Believes in Prayer [] Reads Bible or Restorationist materials [] There are Spiritual issues to be addressed Electrical/Instrument Technician Interventions [] Prayer [] Active listening [] Non-anxious presence [] Spiritual/emotional support [] Crisis/trauma care [] Spiritual counseling [] Bereavement support [] Provided bereavement packet [] Provided Bible/devotional materials [] Provided toy/stuffed animal, coloring book to patient or family member [] Provided Communion [] Anointing/[place] [] Salvation [] Completed spiritual assessment [] Other: Impact on Illness or Injury [] Angry [] Fearful [] Anxious [] Often cries [] Exhaustion [] Unable to work [] Unable to attend caodaism [] Unable to walk/stand [] Unable to read [] Unable to drive [] Unable to eat/drink [] Unable to sleep [] Unable to be with family [] Patient intubated [] Other: Summary Follow-up visit with staff + 1 family Time spent with patient 5 mins
[2022-11-15 16:43] LABS: Glucose Point of Care 95 mg/dL (70-110)
[2022-11-15 21:42] LABS: Glucose Point of Care 99 mg/dL (70-110)
[2022-11-16 03:49] VITALS: BP 118/70; PULSE 80; RESP 20; TEMP 36.9; O2SAT 94
[2022-11-16 06:47] LABS: Glucose Point of Care 78 mg/dL (70-110)
[2022-11-16 08:00] VITALS: BP 96/60; PULSE 86; RESP 18; TEMP 37; O2SAT 96
[2022-11-16 08:50] VITALS: PULSE 107; RESP 16; O2SAT 97
[2022-11-16] MEDS: thiamine 100 mg Tablet PO (09:02)
[2022-11-16] MEDS: heparin 5,000 unit/mL INJ 1 mL 5000 UNIT SUBCUT (09:02)
[2022-11-16] MEDS: citalopram 20 mg Tablet PO (09:02)
[2022-11-16] MEDS: spironolactone 25 mg Tablet PO (09:03)
[2022-11-16] MEDS: lactulose oral liq 20 gm/30 mL UDC PO (09:03)
[2022-11-16 09:35] VITALS: RESP 17
[2022-11-16] MEDS: ondansetron 2 mg/ML SDV 2 mL 4 MG IVP (09:35)
[2022-11-16] MEDS: morphine 4 mg/mL SDV 1 mL 2 MG IVP (09:35)
--- NOTE | 2022-11-16 09:45 | P.DS_ITS ---
Discharge Providers Date of Admission: 11/14/22 17:47 Date of Discharge: November 16, 2022 Attending Provider at Admission: Brandon Howard MD Attending Provider at Discharge: Maikol Ordoñez MD Primary Care Provider: YENI Perez Diagnoses at Discharge Discharge Diagnosis (1) Weakness: Status: Acute (2) Status post lumbar laminectomy: Status: Acute (3) Pneumonia: Status: Acute (4) ALC (alcoholic liver cirrhosis): Status: Acute Reason for Visit Reason for Visit: BACK PAIN Hospital Course Hospital Course HPI:Brandon Howard MD Reinaldo Flores is a 47 year old male awaiting nursing facility placement, recently hospitalized for pneumonia, sepsis, weakness who went AMA earlier in the day.? He had fallen at the hospital, and had some x-rays of his ankle.? He reports he got home, drank about half a glass of vodka, fell in the bathroom.? States he hit his back.? Did not hit his head.? He reports he realizes he is weak, needs to go to a nursing facility for rehabilitation.? He denies any suicidal or homicidal ideation.He had a recent back surgery, on October 31, secondary to herniated disc and right foot drop. Hospital course: He was admitted for generalized weakness, as well as for safe discharge to care home as he is unable to take care of himself at home secondary to severe weakness multiple falls, s/p recent lumbar laminectomy, Patient has agreed to go to prison facility, and is currently being discharged, in stable condition to prison facility, dose of spironolactone has been decreased to 25 mg p.o. daily as his blood pressure is on slightly softer side, Lasix p.o. has also been kept on hold for a week, patient has peritoneal drain in place, for drainage of recurrent ascites, due to end-stage decompensated liver cirrhosis. Patient is being discharged in stable condition to SNF. Physical Exam 2 Const: COMMON NORMALS: patient oriented x3 HENMT: COMMON NORMALS: normocephalic and atraumatic HEAD & SCALP: normocephalic and atraumatic Resp: COMMON NORMALS: normal respiratory effort, No retractions, No use of accessory muscles and clear to auscultation bilaterally EFFORT & INSPECTION: Yes symmetric chest movement AUSCULTATION: clear to auscultation bilaterally Cardio: COMMON NORMALS: regular rate, regular rhythm, S1 normal heart sound present, S2 normal heart sound present, No gallops present (Cardio), No murmurs present (Cardio), No rub (Cardio) and Peripheral pulses 2+ throughout RATE: regular rate RHYTHM: regular rhythm HEART SOUNDS: S1 normal heart sound present and S2 normal heart sound present PERIPHERAL PULSES: Peripheral pulses 2+ throughout GI: COMMON NORMALS: Soft to palpation, non-tender, No hepatosplenomegaly present and no masses AUSCULTATION: Yes normoactive bowel sounds PALPATION: Yes Soft to palpation and Yes No hepatosplenomegaly present RECTAL EXAM: Yes deferred OTHER: Normal active BS peritoneal drain in place Extremity: COMMON NORMALS: no clubbing, cyanosis or edema and no pedal edema Neuro: COMMON NORMALS: patient oriented x3 Discharge Data Studies Completed and Pending Completed Studies During Hospitalization Category Date Time Status XR lumbar spine 2-3V* [id number] Stat Exams 11/14/22 17:40 Completed Radiology Impressions Lumbar Spine X-Ray 11/14/22 17:40 IMPRESSION: No fractures or spondylolisthesis of the lumbar spine. Degenerative changes, as noted above. Laboratory Results WBC 6.2 10^3/uL (4.0-10.0) 11/14/22 18:04 RBC 3.40 10^6/uL (4.1-5.3) L 11/14/22 18:04 Hgb 11.4 g/dL (11.7-16.6) L 11/14/22 18:04 Hct 34.6 % (42.0-52.0) L 11/14/22 18:04 MCV 101.8 fl (80-94) H 11/14/22 18:04 MCH 33.5 pg (28.0-34.0) 11/14/22 18:04 MCHC 32.9 g/dL (30.0-36.0) 11/14/22 18:04 RDW 14.4 % (12.1-15.1) 11/14/22 18:04 Plt Count 157 10^3/cmm (130-400) 11/14/22 18:04 MPV 9.5 fL (7.4-10.4) 11/14/22 18:04 Neut % (Auto) 71.8 % 11/14/22 18:04 Lymph % (Auto) 15.3 % 11/14/22 18:04 [place] % (Auto) 10.7 % 11/14/22 18:04 Eos % (Auto) 1.3 % 11/14/22 18:04 Baso % (Auto) 0.6 % 11/14/22 18:04 Neut # (Auto) 4.42 10^3/uL (1.8-7.7) 11/14/22 18:04 Lymph # (Auto) 0.9 10^3/uL (0.8-4.8) 11/14/22 18:04 [place] # (Auto) 0.7 10^3/uL (0.2-0.9) 11/14/22 18:04 Eos # (Auto) 0.1 10^3/uL (0.0-0.8) 11/14/22 18:04 Baso # (Auto) 0.0 10^3/uL (0.0-0.1) 11/14/22 18:04 Nucleated RBC % (auto) 0 % 11/14/22 18:04 Nucleated RBCs # 0.0 /100WBC 11/14/22 18:04 Sodium 135 mmol/L (136-145) L 11/14/22 17:45 Potassium 4.6 mmol/L (3.5-5.1) 11/14/22 17:45 Chloride 105 mmol/L (98-107) 11/14/22 17:45 Carbon Dioxide 21 mmol/L (22-29) L 11/14/22 17:45 Anion Gap 13.6 (5-19) 11/14/22 17:45 BUN 3 mg/dL (6-20) L 11/14/22 17:45 Creatinine 0.4 mg/dL (0.7-1.2) L 11/14/22 17:45 GFR Calculation 228.6 mL/min (90-130) H 11/14/22 17:45 Glucose 82 mg/dL (65-115) 11/14/22 17:45 POC Glucose 78 mg/dL (70-110) 11/16/22 06:39 Calculated Osmolality 276 mOsm/kg (285-295) L 11/14/22 17:45 Calcium 8.1 mg/dL (8.5-10.5) L 11/14/22 17:45 Total Bilirubin 1.8 mg/dL (0.15-1.2) H 11/14/22 17:45 AST 37 U/L (0-40) 11/14/22 17:45 ALT 19 U/L (0-41) 11/14/22 17:45 Alkaline Phosphatase 58 U/L (40-130) 11/14/22 17:45 Total Protein 5.2 g/dL (6.6-8.7) L 11/14/22 17:45 Albumin 2.2 g/dL (3.5-5.2) L 11/14/22 17:45 Globulin 3.0 g/dL (1.3-4.6) 11/14/22 17:45 Urine Color [place] (Yellow) 11/15/22 02:20 Urine Appearance Sl cloudy (CLEAR) A 11/15/22 02:20 Urine pH 6 (5-7) 11/15/22 02:20 Ur Specific [place] 1.020 (1.005-1.030) 11/15/22 02:20 Urine Protein Trace (Negative) 11/15/22 02:20 Urine Glucose (UA) Norm (Normal) 11/15/22 02:20 Urine Ketones 1+ (Negative) H 11/15/22 02:20 Urine Blood Neg (Negative) 11/15/22 02:20 Urine Nitrate Negative (Negative) 11/15/22 02:20 Urine Bilirubin 1+ (Negative) H 11/15/22 02:20 Urine Urobilinogen 4 mg/dL (Negative) H 11/15/22 02:20 Ur Leukocyte Esterase Trace (Negative) H 11/15/22 02:20 Urine RBC None /hpf (0-2) 11/15/22 02:20 Urine WBC 0-4 /hpf (0-5) H 11/15/22 02:20 Ur Squamous Epith Cells None /hpf (0-5) 11/15/22 02:20 Calcium Oxalate Crystal 10-15 /hpf H 11/15/22 02:20 Amorphous Sediment Not Reportable 11/15/22 02:20 Urine Bacteria 1+ /hpf (NONE) H 11/15/22 02:20 Urine Mucus 3+ /hpf 11/15/22 02:20 Vitals Last Vital Signs Temp 98.6 F 11/16/22 08:00 Pulse 107 H 11/16/22 08:50 Resp 17 11/16/22 09:35 BP 96/60 11/16/22 08:00 Pulse Ox 97 11/16/22 08:50 O2 Del Method Room Air 11/16/22 08:50 O2 Flow Rate 3 11/15/22 20:30 Discharge Plan Discharge Patient Disposition: Xfer SNF Condition: Stable Prescriptions: New spironolactone 25 mg Tablet 25 mg PO DAILY 30 Days Qty: 30 2RF Continued lactulose 20 gram/30 mL solution 20 g PO DAILY Qty: 2880 5RF metformin 500 mg tablet extended release 24 hr 500 mg PO BID citalopram 20 mg tablet 20 mg PO DAILY Invega Sustenna 156 mg/mL syringe See Rx Instructions .ROUTE .COMPLEX Rx Instructions: INJECT 156 MG INTRAMUSCULARLY EVERY 30 DAYS - TO BE GIVEN 7 DAYS AFTER THE INITIAL 234 MG DOSE IS GIVEN acetaminophen 325 mg Capsule 650 mg PO QID PRN (Reason: Pain) Held furosemide [Lasix] 20 mg tablet 20 mg PO DAILY Hold Instructions: Resume on 11/23/22. Discontinued amoxicillin-pot clavulanate 875-125 mg Tablet 1 tab PO BID Qty: 10 0RF spironolactone 50 mg tablet 50 mg PO DAILY Discharge Orders: Discharge Order (Routine); Ordered 11/16/22 Ordered By: Maikol Ordoñez Referrals: [facility] [Outside] Jewell Hugo FNP-C [Primary Care Provider] - 1-3 days Patient Instructions: Opioid Safety Discharge Attestations Time Spent in Discharge Care*: less than 30 min Status at Discharge: Cognitive status at discharge: cognitively intact , Behavioral status at discharge: cooperative , Quality Metrics Clinical Quality Measures [ No reported AMI, CVA or VTE this stay] Coding Level of Care Code Acute Code for Chg Fwd Diagnoses Weakness R53.1 Status post lumbar laminectomy Z98.890 Pneumonia J18.9 ALC (alcoholic liver cirrhosis) K70.30
[2022-11-16 11:00] LABS: Glucose Point of Care 159 mg/dL (70-110)
[2022-11-16 12:00] VITALS: BP 129/87; PULSE 110; RESP 20; TEMP 37.3; O2SAT 98
--- NOTE | 2022-11-16 12:05 | PC.NURSE ---
This nurse called Oleg Tom and was transferred to Kady to give report on patient. Answered questions and encouraged Kady to contact back with any additional questions or concerns.
[2022-11-16 13:13] VITALS: BP 129/87; PULSE 110; RESP 20; TEMP 37.3; O2SAT 98
== END 2022-11-16 13:15 | disposition skilled nursing facility (03) ==
LOC: ER 17:31 → MEDSURG 18:40
PROVIDERS: Admitting Provider Internal Medicine; Emergency Provider Family Medicine; PCP Nurse Practitioner Family; Visit Provider Internal Medicine
DX: R53.1 Weakness (principal); Z98.890 Other specified postprocedural states; J18.9 Pneumonia, unspecified organism; K70.30 Alcoholic cirrhosis of liver without ascites; Z75.1 Person awaiting admission to adequate facility elsewhere; Z91.81 History of falling; Z79.84 Long term (current) use of oral hypoglycemic drugs; E11.42 Type 2 diabetes mellitus with diabetic polyneuropathy; J44.9 Chronic obstructive pulmonary disease, unspecified; F17.210 Nicotine dependence, cigarettes, uncomplicated; I10 Essential (primary) hypertension; Z86.73 Personal history of transient ischemic attack (TIA), and cerebral infarction without residual deficits; E78.2 Mixed hyperlipidemia; Z87.820 Personal history of traumatic brain injury
CPT/HCPCS: 36415; 36416; 72100; 80053; 81001; 82962; 85025; 96372; 96374; 96375; 99285; G0378; J1644; J2270; J2405

== ENCOUNTER 2022-11-17 17:03 | Emergency (ER) | payer MEDICARE, MEDICAID, SELFPAY ==
[2022-11-17 17:07] VITALS: BP 116/70; PULSE 108; RESP 18; O2SAT 97
--- NOTE | 2022-11-17 17:17 | W.ED.SOB ---
HPI - SOB/Dyspnea General: Chief Complaint: Shortness of Breath/Dyspnea Stated Complaint: ABD PAIN Time Seen by Provider: 11/17/22 17:17 Source: patient Mode of arrival: ambulatory Limitations: no limitations History of Present Illness: HPI Narrative: 47-year-old male who is very well-known to the ER he has a history of cirrhosis he has ascites he had recently got discharged yesterday to correction he does have a peritoneal drain in place correction states he not able to drain him there today he is complaining of increased distention and wanted to have his abdomen drained and was sent here has some mild shortness of breath that is chronic in nature no fevers Associated symptoms: Reports abdominal pain; Deny chest pain, fever(s), nausea or vomiting Review of Systems Const: Denies: fever(s) or chills ENMT: Denies: throat pain or dental pain Card: Denies: chest pain Resp: Reports: dyspnea GI: Reports: abdominal pain; Denies: nausea, vomiting or diarrhea : Denies: dysuria Musc: Denies: neck pain or back pain Skin/Breast: Denies: rash Neuro: Denies: headache(s) PFSH ED PFSH: Medical History Abdominal ascites Acne rosacea ALC (alcoholic liver cirrhosis) Alcohol dependence Ascites due to alcoholic cirrhosis Bipolar disorder Cirrhosis of liver Controlled diabetes mellitus with hyperglycemia COPD (chronic obstructive pulmonary disease) DM neuropathy, painful Essential (primary) hypertension History of alcohol abuse daily use of hard liquor History of coronary artery disease History of CVA (cerebrovascular accident) 2010 Right side weakness due to a bleed History of memory loss History of schizophrenia Hyperammonemia Hypoxia Leg numbness Major depression, recurrent, chronic Mixed hyperlipidemia Nicotine dependence, cigarettes, uncomplicated Nicotine dependence, unspecified, uncomplicated Pneumonia Psoriasis Psychiatric care Right foot drop Schizoaffective disorder Schizophrenia Seizure disorder Suicidal ideation Traumatic brain injury UTI (urinary tract infection) Weakness Surgical History History of cardiac catheterization ~2014 done in [place], reports they discussed possible stent but he declined History of colonoscopy with polypectomy 2016 History of esophagogastroduodenoscopy (EGD) History of eye surgery Status post lumbar laminectomy Family History Other Dementia Diabetes Hypertension Lung disease Psychiatric illness Stroke Denies family history of Chronic kidney disease (CKD) Anesthesia complication Bleeding disorder Cancer Social History Smoking and tobacco status: current every day smoker cigarettes Packs smoked per day: 2.5 Second hand smoke exposure: Yes Alcohol intake: current Alcohol intake frequency: 3 or more drinks per day Alcohol type: hard liquor Substance/Drug Use: never Adopted: No Caregiver/support person: Yes Lives independently: No Household members: friend(s) and caregiver Housing: Manufactured/Mobile home Marital status: Number of children: 8 service: No Current occupational status: disabled Pets and animals: Yes Do you think of yourself as: Straight/Heterosexual Current gender identity: Male Physical Exam Const: COMMON NORMALS: no acute distress, patient oriented x3 and healthy appearing HENMT: COMMON NORMALS: normocephalic and atraumatic HEAD & SCALP: normocephalic and atraumatic Neck/C-Spine: COMMON NORMALS: full ROM and supple Chest: COMMONS NORMALS: normal inspection of the chest and normal palpation of entire chest wall Resp: COMMON NORMALS: normal respiratory effort, No retractions, No use of accessory muscles and clear to auscultation bilaterally AUSCULTATION: clear to auscultation bilaterally Cardio: COMMON NORMALS: regular rate, regular rhythm and No murmurs present (Cardio) RATE: regular rate RHYTHM: regular rhythm GI: COMMON NORMALS: Soft to palpation, non-tender and no masses PALPATION: Yes Soft to palpation OTHER: distended abdomen Extremity: COMMON NORMALS: normal to inspection and full ROM Neuro: COMMON NORMALS: patient oriented x3, moves all extremities and no focal motor deficits Psych: COMMON NORMALS: mental status grossly normal, Normal thought process present and cooperative THOUGHT PROCESS: Normal thought process present Skin: COMMON NORMALS: no rashes or lesions noted and no wounds GENERAL SKIN EXAM: no rashes or lesions noted Course Vital Signs: Vital signs: Vital Signs Pulse Rate 108 H 11/17/22 17:07 Respiratory Rate 18 11/17/22 17:07 Blood Pressure 116/70 11/17/22 17:07 Pulse Oximetry 97 11/17/22 17:07 Oxygen Delivery Me thod Nasal Cannula 11/17/22 17:07 Oxygen Flow Rate 2 06/10/23 17:07 MDM - SOB/Dyspnea Medical Decision Making Patient presents here with abdominal ascites did drain any abdomen here he is stable for discharge back to correction his significant other is in a take him back. Discharge Plan Discharge Patient Disposition: Home Clinical Impression: Abdominal ascites Condition: Stable Prescriptions: No Action lactulose 20 gram/30 mL solution 20 g PO DAILY Qty: 2880 5RF metformin 500 mg tablet extended release 24 hr 500 mg PO BID citalopram 20 mg tablet 20 mg PO DAILY Invega Sustenna 156 mg/mL syringe See Rx Instructions .ROUTE .COMPLEX Rx Instructions: INJECT 156 MG INTRAMUSCULARLY EVERY 30 DAYS - TO BE GIVEN 7 DAYS AFTER THE INITIAL 234 MG DOSE IS GIVEN furosemide [Lasix] 20 mg tablet 20 mg PO DAILY Hold Instructions: Resume on 11/23/22. 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
[2022-11-17 18:00] VITALS: BP 126/95; PULSE 97; RESP 20; O2SAT 98
== END 2022-11-17 18:18 | disposition home or self-care (01) ==
PROVIDERS: Emergency Provider Emergency Medicine; PCP Nurse Practitioner Family
DX: R18.8 Other ascites (principal); Z79.84 Long term (current) use of oral hypoglycemic drugs; F17.210 Nicotine dependence, cigarettes, uncomplicated; J44.9 Chronic obstructive pulmonary disease, unspecified; E11.9 Type 2 diabetes mellitus without complications; I10 Essential (primary) hypertension; I25.10 Atherosclerotic heart disease of native coronary artery without angina pectoris; Z86.73 Personal history of transient ischemic attack (TIA), and cerebral infarction without residual deficits; E78.2 Mixed hyperlipidemia; Z87.820 Personal history of traumatic brain injury
CPT/HCPCS: 99283

== ENCOUNTER 2022-11-18 21:20 | Emergency (ER) | payer MEDICARE, MEDICAID, SELFPAY ==
[2022-11-18 21:22] VITALS: BMI 33.5
[2022-11-18 21:26] VITALS: BP 117/71; PULSE 93; RESP 17; TEMP 37.2; O2SAT 97
--- NOTE | 2022-11-18 21:32 | CTR_ITS ---
PROCEDURE INFORMATION: Exam: CT Head Without Contrast Exam date and time: 11/18/2022 9:58 PM Age: 47 years old Clinical indication: Other: Seizure, fell from bed, S/P back surgery; Additional info: Seizure head trauma TECHNIQUE: Imaging protocol: Computed tomography of the head without contrast. Radiation optimization: All CT scans at this facility use at least one of these dose optimization techniques: automated exposure control; mA and/or kV adjustment per patient size (includes targeted exams where dose is matched to clinical indication); or iterative reconstruction. REPORTING DATA: Count of CT and Cardiac NM exams in prior 12 months: This patient has received 14 known CTs and 0 known cardiac nuclear medicine studies in the 12 months prior to the current study. COMPARISON: CT head wo con* [id number] 10/27/2022 1:25 AM RADIATION DOSE METRICS: Total DLP (mGy-cm): 1189.68 FINDINGS: Brain: No hemorrhage. No edema. Mild diffuse cerebral atrophy and sequela of chronic small vessel ischemic disease. No mass effect. Cerebral ventricles: No ventriculomegaly. Paranasal sinuses: Visualized sinuses are unremarkable. No fluid levels. Mastoid air cells: Visualized mastoid air cells are well aerated. Bones/joints: Unremarkable. No acute fracture. Soft tissues: Unremarkable. CT/CT head wo con* [id number] IMPRESSION: No acute intracranial abnormality.
--- NOTE | 2022-11-18 21:35 | ED_ITS ---
HPI - Seizure General: Chief Complaint: Seizure Stated Complaint: seizures Time Seen by Provider: 11/18/22 21:28 History of Present Illness: HPI Narrative: Patient presents to the ER today for further evaluation of falling out of his bed this morning hitting his head on his right side and having multiple seizures. Patient does have a seizure history and is on Keppra currently. jail reports patient has 4 seizures throughout the day. Review of Systems General: Reports: 10 or more systems reviewed and unremarkable except in HPI and below PFSH ED PFSH: Medical History Abdominal ascites Acne rosacea ALC (alcoholic liver cirrhosis) Alcohol dependence Ascites due to alcoholic cirrhosis Bipolar disorder Cirrhosis of liver Controlled diabetes mellitus with hyperglycemia COPD (chronic obstructive pulmonary disease) DM neuropathy, painful Essential (primary) hypertension History of alcohol abuse daily use of hard liquor History of coronary artery disease History of CVA (cerebrovascular accident) 2009 Right side weakness due to a bleed History of memory loss History of schizophrenia Hyperammonemia Hypoxia Leg numbness Major depression, recurrent, chronic Mixed hyperlipidemia Nicotine dependence, cigarettes, uncomplicated Nicotine dependence, unspecified, uncomplicated Pneumonia Psoriasis Psychiatric care Right foot drop Schizoaffective disorder Schizophrenia Seizure disorder Suicidal ideation Traumatic brain injury UTI (urinary tract infection) Weakness Surgical History History of cardiac catheterization ~2014 done in [place], reports they discussed possible stent but he declined History of colonoscopy with polypectomy 2015 History of esophagogastroduodenoscopy (EGD) History of eye surgery Status post lumbar laminectomy Family History Other Dementia Diabetes Hypertension Lung disease Psychiatric illness Stroke Denies family history of Chronic kidney disease (CKD) Anesthesia complication Bleeding disorder Cancer Social History Smoking and tobacco status: current every day smoker cigarettes Packs smoked per day: 2.5 Second hand smoke exposure: Yes Alcohol intake: current Alcohol intake frequency: 3 or more drinks per day Alcohol type: hard liquor Substance/Drug Use: never Adopted: No Caregiver/support person: Yes Lives independently: No Household members: friend(s) and caregiver Housing: Manufactured/Mobile home Marital status: Number of children: 8 service: No Current occupational status: disabled Pets and animals: Yes Do you think of yourself as: Straight/Heterosexual Current gender identity: Male Physical Exam 2 Const: COMMON NORMALS: no acute distress, average body habitus, patient oriented x3, no limitations, healthy appearing, alert and well nourished HENMT: COMMON NORMALS: normocephalic, atraumatic, hearing grossly normal bilaterally, external ears normal, Normal external nose present and moist oral mucous membranes HEAD & SCALP: normocephalic and atraumatic NOSE: Normal external nose present EXTERNAL EAR: Yes external ears normal Eye: COMMON NORMALS: Equal, round and reactive pupils present, EOMs intact bilaterally, conjunctivae normal and no scleral icterus CONJUNCTIVA: Yes conjunctivae normal PUPIL: Yes Equal, round and reactive pupils present Neck/C-Spine: COMMON NORMALS: full ROM, no lymphadenopathy, supple, no meningeal signs, no JVD and Thyroid normal THYROID: Thyroid normal Chest: COMMONS NORMALS: normal inspection of the chest and normal palpation of entire chest wall Resp: COMMON NORMALS: normal respiratory effort, No retractions, No use of accessory muscles and clear to auscultation bilaterally AUSCULTATION: clear to auscultation bilaterally Cardio: COMMON NORMALS: no JVD, regular rate, regular rhythm, S1 normal heart sound present, S2 normal heart sound present, No gallops present (Cardio), No clicks present (Cardio), No murmurs present (Cardio) and No rub (Cardio) RATE: regular rate RHYTHM: regular rhythm HEART SOUNDS: S1 normal heart sound present and S2 normal heart sound present GI: COMMON NORMALS: Normal to inspection, nondistended, normoactive bowel sounds present, Soft to palpation and non-tender PALPATION: Yes Soft to palpation Extremity: NARRATIVE EXTREMITY EXAM: 2+ pitting edema to bilateral lower extremities. Neuro: COMMON NORMALS: patient oriented x3 SENSORIUM/ORIENTATION: Yes alert MENINGEAL SIGNS: Yes no meningeal signs Course Vital Signs: Vital signs: Vital Signs Temperature 98.9 F 11/18/22 21:26 Pulse Rate 93 11/18/22 21:26 Respiratory Rate 17 11/18/22 21:26 Blood Pressure 117/71 11/18/22 21:26 Pulse Oximetry 97 11/18/22 21:26 Oxygen Delivery Me thod Room Air 11/18/22 21:26 MDM - Seizure MDM Narrative Medical decision making narrative: Patient presented to the ER with complaints of seizure after fell out of bed this morning. Patient states his tongue woke with movement and is having a hard time opening his right eye. Lab work was obtained which was essentially benign except for low magnesium prolactin is still pending. Head CT was negative When I went to recheck on the patient again patient was comfortably sleeping wit h no complaints. Patient be discharged back to the skilled nursing. Differential Diagnosis Seizure Differential Diagnosis: Likely epileptic seizure; Unlikely intractable seizure disorder, febrile convulsion, focal seizure, generalized seizure, new onset seizure or status epilepticus Medical Records Attestation: I reviewed the patient's medical records. Lab Data 11/18/22 21:45 11/18/22 21:45 Labs: Radiology Impressions Head CT 11/18/22 21:32 IMPRESSION: No acute intracranial abnormality. Laboratory Results WBC 6.9 10^3/uL (4.0-10.0) 11/18/22 21:45 RBC 3.52 10^6/uL (4.1-5.3) L 11/18/22 21:45 Hgb 11.7 g/dL (11.7-16.6) 11/18/22 21:45 Hct 34.8 % (42.0-52.0) L 11/18/22 21:45 MCV 98.9 fl (80-94) H 11/18/22 21:45 MCH 33.2 pg (28.0-34.0) 11/18/22 21:45 MCHC 33.6 g/dL (30.0-36.0) 11/18/22 21:45 RDW 14.1 % (12.1-15.1) 11/18/22 21:45 Plt Count 225 10^3/cmm (130-400) 11/18/22 21:45 MPV 10.0 fL (7.4-10.4) 11/18/22 21:45 Neut % (Auto) 68.7 % 11/18/22 21:45 Lymph % (Auto) 17.9 % 11/18/22 21:45 [place] % (Auto) 10.0 % 11/18/22 21:45 Eos % (Auto) 2.7 % 11/18/22 21:45 Baso % (Auto) 0.6 % 11/18/22 21:45 Neut # (Auto) 4.75 10^3/uL (1.8-7.7) 11/18/22 21:45 Lymph # (Auto) 1.2 10^3/uL (0.8-4.8) 11/18/22 21:45 [place] # (Auto) 0.7 10^3/uL (0.2-0.9) 11/18/22 21:45 Eos # (Auto) 0.2 10^3/uL (0.0-0.8) 11/18/22 21:45 Baso # (Auto) 0.0 10^3/uL (0.0-0.1) 11/18/22 21:45 Nucleated RBC % (auto) 0 % 11/18/22 21:45 Nucleated RBCs # 0.0 /100WBC 11/18/22 21:45 Sodium 133 mmol/L (136-145) L 11/18/22 21:45 Potassium 3.7 mmol/L (3.5-5.1) 11/18/22 21:45 Chloride 99 mmol/L (98-107) 11/18/22 21:45 Carbon Dioxide 24 mmol/L (22-29) 11/18/22 21:45 Anion Gap 13.7 (5-19) 11/18/22 21:45 BUN 4 mg/dL (6-20) L 11/18/22 21:45 Creatinine 0.4 mg/dL (0.7-1.2) L 11/18/22 21:45 GFR Calculation 228.6 mL/min (90-130) H 11/18/22 21:45 Glucose 102 mg/dL (65-115) 11/18/22 21:45 Calculated Osmolality 273 mOsm/kg (285-295) L 11/18/22 21:45 Calcium 8.3 mg/dL (8.5-10.5) L 11/18/22 21:45 Magnesium 1.4 mg/dL (1.7-2.3) L 11/18/22 21:45 Total Bilirubin 1.3 mg/dL (0.15-1.2) H 11/18/22 21:45 AST 36 U/L (0-40) 11/18/22 21:45 ALT 20 U/L (0-41) 11/18/22 21:45 Alkaline Phosphatase 84 U/L (40-130) 11/18/22 21:45 Ammonia 61 umol/L (16-60) H 11/18/22 21:45 Total Protein 5.9 g/dL (6.6-8.7) L 11/18/22 21:45 Albumin 2.4 g/dL (3.5-5.2) L 11/18/22 21:45 Globulin 3.5 g/dL (1.3-4.6) 11/18/22 21:45 Discharge Plan Discharge Patient Disposition: Home Clinical Impression: Generalized seizure Condition: Stable Prescriptions: No Action lactulose 20 gram/30 mL solution 20 g PO DAILY Qty: 2880 5RF metformin 500 mg tablet extended release 24 hr 500 mg PO BID citalopram 20 mg tablet 20 mg PO DAILY Invega Sustenna 156 mg/mL syringe See Rx Instructions .ROUTE .COMPLEX Rx Instructions: INJECT 156 MG INTRAMUSCULARLY EVERY 30 DAYS - TO BE GIVEN 7 DAYS AFTER THE INITIAL 234 MG DOSE IS GIVEN furosemide [Lasix] 20 mg tablet 20 mg PO DAILY Hold Instructions: Resume on 11/23/22. 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
[2022-11-18 22:15] LABS: Ammonia 61 umol/L (16-60)
[2022-11-18 22:16] LABS: Alanine Aminotransferase 20 U/L (0-41); Albumin Level 2.4 g/dL (3.5-5.2); Alkaline Phosphatase 84 U/L (40-130); Anion Gap 13.7 (5-19); Aspartate Amino Transferase 36 U/L (0-40); Blood Urea Nitrogen 4 mg/dL (6-20); Calcium 8.3 mg/dL (8.5-10.5); Carbon Dioxide 24 mmol/L (22-29); Chloride 99 mmol/L (98-107); Globulin 3.5 g/dL (1.3-4.6); Glomerular Filtration Rate 228.6 mL/min (90-130); Glucose 102 mg/dL (65-115); Magnesium 1.4 mg/dL (1.7-2.3); Osmolality Calculated 273 mOsm/kg (285-295); Potassium 3.7 mmol/L (3.5-5.1); Sodium 133 mmol/L (136-145); Total Bilirubin 1.3 mg/dL (0.15-1.2); Total Protein 5.9 g/dL (6.6-8.7)
[2022-11-18 22:19] LABS: Basophils % 0.6 %; Eosinophils # 0.2 10^3/uL (0.0-0.8); Eosinophils % 2.7 %; Hematocrit 34.8 % (42.0-52.0); Hemoglobin 11.7 g/dL (11.7-16.6); Lymphocytes # 1.2 10^3/uL (0.8-4.8); Lymphocytes % 17.9 %; Mean Corpuscular HGB Conc 33.6 g/dL (30.0-36.0); Mean Corpuscular Hemoglobin 33.2 pg (28.0-34.0); Mean Corpuscular Volume 98.9 fl (80-94); Monocytes # 0.7 10^3/uL (0.2-0.9); Neutrophils # 4.75 10^3/uL (1.8-7.7); Neutrophils % 68.7 %; Nucleated Red Blood Cells % 0 %; Platelet Count 225 10^3/cmm (130-400); Red Blood Count 3.52 10^6/uL (4.1-5.3); Red Cell Distribution Width 14.1 % (12.1-15.1); White Blood Count 6.9 10^3/uL (4.0-10.0)
[2022-11-19 00:21] LABS: Prolactin 46.18 ng/mL (4.0-15.2)
[2022-11-19 01:25] VITALS: BP 116/69; PULSE 85; O2SAT 95
== END 2022-11-19 01:25 | disposition home or self-care (01) ==
PROVIDERS: Emergency Provider Emergency Medicine; PCP Nurse Practitioner Family
DX: G40.89 Other seizures (principal); Z79.84 Long term (current) use of oral hypoglycemic drugs; E11.9 Type 2 diabetes mellitus without complications; J44.9 Chronic obstructive pulmonary disease, unspecified; I10 Essential (primary) hypertension; I25.10 Atherosclerotic heart disease of native coronary artery without angina pectoris; Z86.73 Personal history of transient ischemic attack (TIA), and cerebral infarction without residual deficits; E78.2 Mixed hyperlipidemia; Z87.820 Personal history of traumatic brain injury; F17.210 Nicotine dependence, cigarettes, uncomplicated
CPT/HCPCS: 70450; 80053; 82140; 83735; 84146; 85025; 99284